=== PATIENT | male | born 1975 | race Caucasian/White ===

== ENCOUNTER 2017-12-26 16:53 | Emergency (ER) | payer MEDICAID, SELFPAY ==
[2017-12-26 16:54] VITALS: BP 134/89; PULSE 96; RESP 22; TEMP 36.8; O2SAT 95; BMI 55.6
--- NOTE | 2017-12-26 17:25 | CT_ITS ---
STUDY: CT CHEST WITH CONTRAST REASON FOR EXAM: Male, 42 years old. Trauma RADIATION DOSAGE (If Supplied By Facility): CTDIvol = ( 24.75 ) mGy, DLP = ( 2295.72 ) mGycm TECHNIQUE: Transaxial imaging was performed following intravenous administration of 100 ml of Isovue 300 contrast material. Multiplanar coronal and sagittal images were reformatted. Individualized dose optimization techniques were used for this CT. COMPARISON: October 20, 2016 chest x-ray FINDINGS: The lungs are normal. There is no demonstrated pleural abnormality. Normal heart and pericardium. Normal mediastinum. Normal hilar regions. Normal enhanced pulmonary arteries. Normal aorta arch and descending thoracic aorta. The contrast bolus is limited to evaluate for PE. There is a suggestion of old right mid anterior rib fracture. Image #64. Also image #85. There is degenerative change in the visualized thoracic spine with multilevel bridging osteophytes. There is moderate to severe splenic enlargement. There is fatty infiltration of the liver there is a small hiatal hernia. CT/Chest WITH Contrast IMPRESSION: No visualized acute intrathoracic injury. There may be old right anterior rib fractures. No evidence of focal infiltrate. Moderate to severe visualized splenomegaly Small hiatal hernia Hepatic steatosis. Please refer to dedicated separate dictation CT scan of the abdomen and pelvis performed today Electronically Signed: Zayda Vyas MD at 21:26 EST Tel , Service support ,
--- NOTE | 2017-12-26 17:25 | CT_ITS ---
STUDY: CT ABDOMEN AND PELVIS WITH CONTRAST REASON FOR EXAM: Male, 42 years old. Abdominal trauma RADIATION DOSAGE (If Supplied By Facility): CTDIvol = ( 24.75 ) mGy, DLP = ( 2295.72 ) mGycm TECHNIQUE: Transaxial images were obtained from the dome of the diaphragm to the symphysis pubis without oral contrast. 100 ml of Isovue 300 contrast was administered. Sagittal and coronal images were reconstructed. Individualized dose optimization techniques were used for this CT. COMPARISON: None. FINDINGS: The visualized lung bases are unremarkable. The visualized portions of the heart are within normal limits. Normal liver. Normal gallbladder and extrahepatic biliary system. Normal spleen. Normal pancreas. Normal bilateral adrenal glands. 3.7 cm ill-defined isodense right renal cortical mass. Left kidney normal. Normal visualized stomach. Normal small intestine. Normal colon. The appendix is visualized and appears normal. Normal abdominal aorta. Normal inferior vena cava. Normal retroperitoneum. Normal urinary bladder. Normal abdominal wall. Normal osseous structures. CT/Abdomen/Pelvis W IV Cont ONLY IMPRESSION: Right renal mass. Recommend prompt urologic consultation to exclude neoplasm. No acute traumatic sequelae. Electronically Signed: Ethan Jamil MD at 18:52 EST , Service support ,
--- NOTE | 2017-12-26 17:25 | CT_ITS ---
STUDY: CT BRAIN WITHOUT CONTRAST REASON FOR EXAM: Male, 42 years old. Head trauma RADIATION DOSAGE (If Supplied By Facility): CTDIvol = ( 44.99 ) mGy, DLP = ( 812.98 ) mGycm TECHNIQUE: Transaxial CT imaging of the brain was performed without administration of intravenous contrast material. Individualized dose optimization techniques were used for this CT. COMPARISON: None. FINDINGS: Normal soft tissue structures. Normal calvarium. Normal size ventricles and extra-axial spaces for the patient's age. Normal white matter tracts of the cerebral hemispheres. Normal basal ganglia and thalami. Normal brainstem. Normal cerebellum. There is no intracranial hemorrhage. There are no findings of an acute ischemic infarction. Air-fluid level left maxillary sinus. CT/Brain/Head without Contrast IMPRESSION: Left maxillary sinusitis. No acute intracranial disease. Electronically Signed: Ethan Jamil MD at 18:44 EST , Service support ,
--- NOTE | 2017-12-26 17:28 | ED.DCSUM_ITS ---
- ER Visit Summary Date of Service: 12/26/17 Chief Complaint: Fall History of Present Illness: The patient is a 42 M presenting after fall. Patient states he slipped on ice and fell. He believes he hit his head but did not lose consciousness. Complains of right lower chest and right upper abdominal pain. He has taken ibuprofen at home with no relief. He has been able to ambulate. Denies other complaints. Physical Examination: Vitals are stable. Patient is afebrile. Alert no acute distress. HEENT exam is unremarkable. Neck is supple. Lungs are clear and equal bilaterally. Right lower chest wall tenderness Heart is regular rate and rhythm. Abdomen is soft right upper quadrant tenderness. Extremities are unremarkable. Skin is warm and dry. No focal neurologic deficit. Remainder of exam is unremarkable. Emergency Department Course and Treatment: Patient is given morphine, Zofran IV with improvement. CT head shows no acute process. CT chest shows no acute process. CT abdomen shows no acute process, right renal mass. Recommend prompt urologic consultation to exclude neoplasm. Discussed with Dr Reilly who will see him for outpatient follow-up. Patient is advised importance of close follow-up. Advised return ED if worsening complaints. Disposition: Discharge home Impression: Chest wall contusion, status post mechanical fall, right renal mass This note was generated with Active[employer] dictation software. It may contain incorrect words, spelling, and punctuation that were not noted in review of the chart prior to signing ED Disposition - Plan for ED Patient: Chief Complaint: Chest Other Referrals: Jameson Sood MD [Primary Care Provider] -
[2017-12-26] MEDS: Ondansetron 4 MG/2 ML Vial IV (17:39)
--- NOTE | 2017-12-26 22:33 | NURSING ---
WAITING FOR THE DOCTOR TO CALL DR BURNS
--- NOTE | 2017-12-26 23:19 | ED.DEP ---
ED Disposition - Plan for ED Patient: Chief Complaint: Chest Other Instructions: ED Contusion Chest Wall Referrals: Jameson Sood MD [Primary Care Provider] - Jhonathan Reilly MD [STAFF PHYSICIAN] -
[2017-12-26 23:30] VITALS: BP 128/90; PULSE 93; RESP 20; O2SAT 97
== END 2017-12-26 23:31 | disposition home or self-care (01) ==
PROVIDERS: Emergency Provider Emergency Medicine; Family Provider Family Medicine; PCP Family Medicine
DX: S20.219A Contusion of unspecified front wall of thorax, initial encounter (principal); W00.0XXA Fall on same level due to ice and snow, initial encounter; Y93.9 Activity, unspecified; Y92.89 Other specified places as the place of occurrence of the external cause; Y99.9 Unspecified external cause status; N28.89 Other specified disorders of kidney and ureter
CPT/HCPCS: 70450; 71260; 74177; 99283; J7050; Q9967; A4216; J2405

== ENCOUNTER 2018-02-08 16:47 | Emergency (ER) | payer MEDICAID, SELFPAY ==
[2018-02-08 16:48] VITALS: BP 146/68; PULSE 101; RESP 24; TEMP 36.6; O2SAT 97; BMI 60.0
--- NOTE | 2018-02-08 17:20 | ED.DCSUM_ITS ---
- ER Visit Summary Date of Service: 02/08/18 Chief Complaint: Back pain History of Present Illness: The patient is a 42 M who presents secondary to left -sided back pain. Patient states just prior to arrival he was helping a family member move a dresser. The family member on the other end dropped the dresser and the patient's back was jerked in a twisting motion. He had instant pain to the left lumbar region. He has pain radiating to the proximal thigh only. No problems with bowel or bladder control. He did take ibuprofen prior to arrival. Physical Examination: Vital signs are unremarkable. Patient sitting on the side of the bed. He appears uncomfortable but no acute distress. Heart is regular rate and rhythm. Lung sounds are clear. Abdomen is soft, obese, nontender. Back examination reveals no midline thoracic or lumbar tenderness. He has significant tenderness in the lower thoracic and upper lumbar paraspinals on the left. No tenderness noted to the right-sided paraspinals. No skin changes are noted. Neuro exam reveals normal strength and sensation in the lower extremities. He has strong distal pulses. Test Results: [] Emergency Department Course and Treatment: I did do an oars report. Patient has not had any prescriptions in the last year. He is given [place] and Flexeril here and be given prescriptions for the same. Treatment Plan: [] Disposition: Discharge Impression: Lumbar paraspinal strain This note was generated with [employer] dictation software. It may contain incorrect words, spelling, and punctuation that were not noted in review of the chart prior to signing ED Disposition - Plan for ED Patient: Chief Complaint: Back Referrals: Jameson Sood MD [Primary Care Provider] -
--- NOTE | 2018-02-08 17:22 | DCINST.ED_ITS ---
ED Disposition - Plan for ED Patient: Disposition: Home or Assisted Living Chief Complaint: Back Instructions: ED Sprain Strain Lumbar Prescriptions: Hydrocodone Bitart/Apap 5-325 [[place] 5/325] 1 - 2 tablet PO Q6H PRN PRN 3 Days # 12 tablet PRN Reason: Pain Cyclobenzaprine [Flexeril] 10 mg PO TID PRN #20 tab PRN Reason: Muscle Spasm Referrals: Jameson Sood MD [Primary Care Provider] - 1 Week if not improving
[2018-02-08] MEDS: HYDROcodone Bitartrate/Apap 5/325 Tablet PO (17:25)
== END 2018-02-08 17:34 | disposition home or self-care (01) ==
PROVIDERS: Emergency Provider Emergency Medicine; Family Provider Family Medicine; PCP Family Medicine
DX: S39.012A Strain of muscle, fascia and tendon of lower back, initial encounter (principal); X50.1XXA Overexertion from prolonged static or awkward postures, initial encounter; Y93.E6 Activity, residential relocation; Y92.9 Unspecified place or not applicable; Y99.9 Unspecified external cause status; E66.9 Obesity, unspecified; Z85.528 Personal history of other malignant neoplasm of kidney
CPT/HCPCS: 99283

== ENCOUNTER 2018-03-15 22:14 | Emergency (ER) | payer MEDICAID, SELFPAY ==
[2018-03-15 22:15] VITALS: BP 165/96; PULSE 89; RESP 15; TEMP 36.9; BMI 55.7
--- NOTE | 2018-03-15 23:18 | ED.VISSUMM ---
- ER Visit Summary Date of Service: 03/15/18 Chief Complaint: I think my incision is infected History of Present Illness: The patient is a 42 M is post partial nephrectomy on the right done at [facility] approximately 1 week ago secondary to a renal tumor. Patient states been doing well. Whenever changing the bandage today they noticed redness to his abdominal wall and some cloudy discharge from his right lower laparoscopic incision. He denies any fever. States is feeling well otherwise. Physical Examination: Vital signs are stable and afebrile. He does not look septic toxic. He is in no distress. HEENT exam unremarkable. Neck nontender no lymphadenopathy. Lungs clear to auscultation bilaterally. Heart regular rhythm no murmur. Abdomen has multiple well-healing surgical incisions. The right lower 1 does have redness around it. Currently there is no discharge. This does appear to be abdominal wall cellulitis. It is warm to touch. Below that is a prior drainage site that is open. There are no peritoneal signs. He is moving his extremities. Neurologically is awake and alert. Test Results: None Emergency Department Course and Treatment: Patient will be started on Keflex 500 mg 4 times daily for 10 days. He will be given a home pack and [place] for pain. He is going to call his [facility] investigation officer tomorrow for repeat evaluation. He does not have a scheduled appointment for at least another week and I told him he needs to get in before that. Treatment Plan: Keflex 500 4 times daily. Disposition: discharge Impression: Abdominal wall surgical site infection with cellulitis Status post partial nephrectomy This note was generated with E[employer]as dictation software. It may contain incorrect words, spelling, and punctuation that were not noted in review of the chart prior to signing ED Disposition - Plan for ED Patient: Chief Complaint: Wound Check Referrals: Jameson Sood MD [Primary Care Provider] -
--- NOTE | 2018-03-15 23:22 | ED.DCSUM_ITS ---
- ER Visit Summary Date of Service: 03/15/18 Chief Complaint: I think my incision is infected History of Present Illness: The patient is a 42 M is post partial nephrectomy on the right done at [facility] approximately 1 week ago secondary to a renal tumor. Patient states been doing well. Whenever changing the bandage today they noticed redness to his abdominal wall and some cloudy discharge from his right lower laparoscopic incision. He denies any fever. States is feeling well otherwise. Physical Examination: Vital signs are stable and afebrile. He does not look septic toxic. He is in no distress. HEENT exam unremarkable. Neck nontender no lymphadenopathy. Lungs clear to auscultation bilaterally. Heart regular rhythm no murmur. Abdomen has multiple well-healing surgical incisions. The right lower 1 does have redness around it. Currently there is no discharge. This does appear to be abdominal wall cellulitis. It is warm to touch. Below that is a prior drainage site that is open. There are no peritoneal signs. He is moving his extremities. Neurologically is awake and alert. Test Results: None Emergency Department Course and Treatment: Patient will be started on Keflex 500 mg 4 times daily for 10 days. He will be given a home pack and [place] for pain. He is going to call his [facility] pharmacist tomorrow for repeat evaluation. He does not have a scheduled appointment for at least another week and I told him he needs to get in before that. Treatment Plan: Keflex 500 4 times daily. Disposition: discharge Impression: Abdominal wall surgical site infection with cellulitis Status post partial nephrectomy This note was generated with [employer]ion[employer] dictation software. It may contain incorrect words, spelling, and punctuation that were not noted in review of the chart prior to signing ED Disposition - Plan for ED Patient: Chief Complaint: Wound Check Referrals: Jameson Sood MD [Primary Care Provider] -
--- NOTE | 2018-03-15 23:22 | ED.DEP ---
ED Disposition - Plan for ED Patient: Disposition: Home or Assisted Living Chief Complaint: Wound Check Instructions: ED Wound Infec After Surgery Prescriptions: Cephalexin [Keflex] 500 mg PO Q6 #40 cap Additional Instructions: Call your kidney surgeon on Friday. You need to get in to see him in the next several days. He need to reevaluate the surgical wound. Next Keflex 1 pill 4 times a day for the infection. Return if feeling worse or develop a fever.
[2018-03-15] MEDS: Cephalexin 250 MG Capsule 500 MG PO (23:23)
[2018-03-15] MEDS: HYDROcodone Bitartrate/Apap 5/325 Tablet PO (23:23)
[2018-03-15 23:25] VITALS: BP 151/83; PULSE 80; RESP 18; O2SAT 95
== END 2018-03-15 23:30 | disposition home or self-care (01) ==
PROVIDERS: Emergency Provider Emergency Medicine; Family Provider Family Medicine; PCP Family Medicine
DX: L03.311 Cellulitis of abdominal wall (principal); Z90.5 Acquired absence of kidney; R19.7 Diarrhea, unspecified
CPT/HCPCS: 99282

== ENCOUNTER 2018-04-02 10:02 | Emergency (ER) | payer MEDICAID, SELFPAY ==
[2018-04-02 10:03] VITALS: BP 154/108; PULSE 70; RESP 16; TEMP 36.7; O2SAT 95; BMI 59.8
--- NOTE | 2018-04-02 10:20 | CT_ITS ---
STUDY: CT ABDOMEN AND PELVIS WITHOUT CONTRAST REASON FOR EXAM: Male, 42 years old. Recent right partial nephrectomy. Right flank pain. History of renal carcinoma. RADIATION DOSAGE (If Supplied By Facility): CTDIvol = ( 17.58 ) mGy, DLP = ( 2640.44 ) mGycm TECHNIQUE: Transaxial images were obtained from the dome of the diaphragm to the symphysis pubis without oral contrast, and without intravenous contrast. Sagittal and coronal images were reconstructed. Individualized dose optimization techniques were used for this CT. COMPARISON: Comparison is made with prior study dated December 26, 2017. FINDINGS: The visualized lung bases are unremarkable. The visualized portions of the heart are within normal limits. Normal liver. Normal gallbladder and extrahepatic biliary system. Normal spleen. Normal pancreas. Normal bilateral adrenal glands. The patient is status post partial right nephrectomy with resection of the 3.7 cm inhomogeneous mass arising from the lateral aspect of the right kidney. Postsurgical changes are seen with increased linear markings. There is no evidence of a fluid collection or perinephric hematoma. Normal left kidney. Normal visualized stomach. Normal small intestine. Normal colon. The appendix is visualized and appears normal. Normal abdominal aorta. Normal inferior vena cava. Normal retroperitoneum. Normal urinary bladder. There is evidence of a focal herniation in the right lateral abdominal wall with fat. There is evidence of a 9.4 cm x 4.8 cm soft tissue density overlying the right mid abdomen laterally. This most likely represents postoperative or seroma. Normal osseous structures. CT/Abdomen/Pelvis without Cont IMPRESSION: Status post partial right nephrectomy with resultant postoperative changes. Findings suggestive of a postoperative seroma in the subcutaneous tissues in the right mid lateral anterior abdomen just lateral to a focal hernia containing fat. The neck of the hernia measures 2.5 cm. Electronically Signed: Chencho Templeton MD at 11:16 EDT Tel [phone], Service support ,
[2018-04-02] MEDS: oxyCODONE 5 MG Tablet 10 MG PO (10:26)
--- NOTE | 2018-04-02 11:53 | ED.DCSUM_ITS ---
- ER Visit Summary Date of Service: 04/02/18 Chief Complaint: Abdominal pain History of Present Illness: The patient is a [address] Sood. He had a partial right nephrectomy for renal cell cancer March 09 at [facility]. He reports he has had pain on that side of his abdomen since that time. The pain worsened 3 days ago. Is a sharp pain that is 10 out of 10 severity. Is worsened by laying down. He is not taking anything for this. He was seen in the emergency department March 15 and placed on Keflex. He had his dominguez removed [address] Vivar and was continued on the Keflex which she finished 3 days ago. Patient is concerned because he can feel a lump under the middle incision. He denies any constitutional symptoms. No fever, chills, nausea, or vomiting. Physical Examination: Vitals: Stable. Afebrile. General: Well-nourished and well-developed. Head: Normocephalic atraumatic. Neck: Supple, no lymphadenopathy. No JVD. Nontender. Cardiovascular: Regular rate and rhythm. No murmurs. Respiratory: No respiratory distress. Clear to auscultation bilaterally. Abdominal: Soft, mild tenderness to palpation approximately 2 cm indurated area over the middle incision on the right no erythema or fluctuance, nondistended, normal bowel sounds. No guarding, rebound, or peritoneal signs. Incisions are clean dry and intact. There is no surrounding erythema. Back: Nontender. Extremities: Nontender, no edema. Skin: Normal color, no rash. Neurologic: Alert and oriented ?3. Cranial nerves II through XII are intact. Normal strength and sensation. Psych: Normal affect. Test Results: CT flank shows Clinical Impression(s) from Imaging Studies IMPRESSION: Status post partial right nephrectomy with resultant postoperative changes. Findings suggestive of a postoperative seroma in the subcutaneous tissues in the right mid lateral anterior abdomen just lateral to a focal hernia containing fat. The neck of the hernia measures 2.5 cm. Emergency Department Course and Treatment: An [facility] report was obtained which shows he has had 3 prescriptions for opiates in the past year. He is treated with a dose of oxycodone here. Treatment Plan: Clinically this seroma is not infected. There is no erythema, warmth, or fluctuance. I discussed the patient and the hernia that he has and the seroma. He has an appointment to follow-up with his surgeon in 5 days. I do not think that putting him on antibiotics at this point is indicated. He will be discharged with prescription for 12 Percocet. Return to the emergency department for any worsening symptoms. Disposition: To home in improved and stable condition. Impression: 1. 24 days status post partial right nephrectomy. 2. Postoperative seroma. This note was generated with aDeal[employer] dictation software. It may contain incorrect words, spelling, and punctuation that were not noted in review of the chart prior to signing ED Disposition - Plan for ED Patient: Chief Complaint: Wound Check Instructions: ED Post Op Pain Prescriptions: Oxycodone HCl/Acetaminophen [Percocet 5/325] 1 tablet PO Q6H PRN PRN 3 Days #12 tablet PRN Reason: Pain Additional Instructions: Follow-up with your surgeon as previously scheduled.
== END 2018-04-02 11:58 | disposition home or self-care (01) ==
PROVIDERS: Emergency Provider Emergency Medicine; Family Provider Family Medicine; PCP Family Medicine
DX: N99.842 Postprocedural seroma of a genitourinary system organ or structure following a genitourinary system procedure (principal); Z90.5 Acquired absence of kidney; Z85.528 Personal history of other malignant neoplasm of kidney
CPT/HCPCS: 74176; 99283

== ENCOUNTER → 2018-04-20 17:28 | Emergency (ER) | payer MEDICAID, SELFPAY ==
--- NOTE | 2018-04-20 17:28 | DT_ITS ---
This patient was seen during an EMR downtime April 20, 2018 - April 27, 2018. This patient may have a combination of paper and electronic documentation or all paper documentation. All documentation is viewable within the e-chart portion of [employer] for each patient visit.
== END | disposition left against medical advice (07) ==
LOC: ED 04-22 13:43
PROVIDERS: Emergency Provider Emergency Medicine; Family Provider Family Medicine; PCP Family Medicine
DX: Z53.21 Procedure and treatment not carried out due to patient leaving prior to being seen by health care provider (principal)

== ENCOUNTER 2018-04-30 17:15 | Emergency (ER) | payer MEDICAID, SELFPAY ==
[2018-04-30 17:16] VITALS: BP 133/91; PULSE 79; RESP 17; TEMP 36.7; O2SAT 96; BMI 58.3
--- NOTE | 2018-04-30 17:39 | ED.VISSUMM ---
- ER Visit Summary Date of Service: 04/30/18 Chief Complaint: Acute on chronic right lateral abdominal pain History of Present Illness: The patient is a 42 M is post right nephrectomy secondary to renal CA. Patient's had pain since March 09 after he had nephrectomy. A recently diagnosed him with a seroma and also lateral abdominal wall hernia. He followed up with his primary care physician Dr. Sood who placed him on Percocet for pain. He is also seeing Dr. Rocha general surgeon. Patient states that there determining the next step. He presents today complaining of the same continued pain. He denies fever or vomiting. States she has had normal bowel movements and normal urination. The pain is not change this is been constant. Physical Examination: Well-appearing middle-age male. Morbidly obese. Vital signs are stable afebrile. H EENT exam unremarkable. Lungs clear to auscultation bilaterally. Heart regular rate and rhythm no murmur. Abdomen is morbidly obese but soft. Normal bowel sounds no peritoneal signs. He has a right lateral abdominal wall tenderness there are multiple well-healed laparoscopic incisions there. This is where the previously diagnosed hernia and seroma were. There is no incarcerated or strangulated hernia at this time. He has normal bowel sounds his abdomen is soft. He is moving all 4 extremities. Neurologically is awake and alert. Test Results: I reviewed the patient's last ER visit and the CAT scan results. This today. I do not feel he needs any further imaging. Her lab work. Emergency Department Course and Treatment: He will be given 2 [place] here. A prescription for Percocet for pain 14 no refill and any further pain meds need to be obtained through his primary care physician or his surgeon. Treatment Plan: Discharged to follow-up with Dr. Johann Rocha. Disposition: Discharged Impression: Acute on chronic abdominal wall pain secondary to a seroma and right lateral abdominal wall hernia status post nephrectomy This note was generated with [employer] dictation software. It may contain incorrect words, spelling, and punctuation that were not noted in review of the chart prior to signing ED Disposition - Plan for ED Patient: Chief Complaint: Abd Pain Referrals: Jameson Sood MD [Primary Care Provider] -
--- NOTE | 2018-04-30 17:42 | ED.DCSUM_ITS ---
- ER Visit Summary Date of Service: 04/30/18 Chief Complaint: Acute on chronic right lateral abdominal pain History of Present Illness: The patient is a 42 M is post right nephrectomy secondary to renal CA. Patient's had pain since March 09 after he had nephrectomy. A recently diagnosed him with a seroma and also lateral abdominal wall hernia. He followed up with his primary care physician Dr. Sood who placed him on Percocet for pain. He is also seeing Dr. Rocha general surgeon. Patient states that there determining the next step. He presents today complaining of the same continued pain. He denies fever or vomiting. States she has had normal bowel movements and normal urination. The pain is not change this is been constant. Physical Examination: Well-appearing middle-age male. Morbidly obese. Vital signs are stable afebrile. H EENT exam unremarkable. Lungs clear to auscultation bilaterally. Heart regular rate and rhythm no murmur. Abdomen is morbidly obese but soft. Normal bowel sounds no peritoneal signs. He has a right lateral abdominal wall tenderness there are multiple well-healed laparoscopic incisions there. This is where the previously diagnosed hernia and seroma were. There is no incarcerated or strangulated hernia at this time. He has normal bowel sounds his abdomen is soft. He is moving all 4 extremities. Neurologically is awake and alert. Test Results: I reviewed the patient's last ER visit and the CAT scan results. This today. I do not feel he needs any further imaging. Her lab work. Emergency Department Course and Treatment: He will be given 2 [place] here. A prescription for Percocet for pain 14 no refill and any further pain meds need to be obtained through his primary care physician or his surgeon. Treatment Plan: Discharged to follow-up with Dr. Johann Rocha. Disposition: Discharged Impression: Acute on chronic abdominal wall pain secondary to a seroma and right lateral abdominal wall hernia status post nephrectomy This note was generated with [employer] dictation software. It may contain incorrect words, spelling, and punctuation that were not noted in review of the chart prior to signing ED Disposition - Plan for ED Patient: Chief Complaint: Abd Pain Referrals: Jameson Sood MD [Primary Care Provider] -
--- NOTE | 2018-04-30 17:42 | ED.DEP ---
ED Disposition - Plan for ED Patient: Disposition: Home or Assisted Living Chief Complaint: Abd Pain Prescriptions: Oxycodone HCl/Acetaminophen [Percocet 10-325 mg Tablet] 1 tab PO Q6H PRN PRN #14 tab PRN Reason: Pain Referrals: Jhon Rocha MD [STAFF PHYSICIAN] - As soon as possible Additional Instructions: Call follow-up with Dr. Rocha. Any further pain medications must be obtained using your general surgeon or your primary care physician.
--- NOTE | 2018-04-30 17:45 | DCINST.ED_ITS ---
ED Disposition - Plan for ED Patient: Disposition: Home or Assisted Living Chief Complaint: Abd Pain Prescriptions: Oxycodone HCl/Acetaminophen [Percocet 10-325 mg Tablet] 1 tab PO Q6H PRN PRN # 14 tab PRN Reason: Pain Referrals: Jhon Rocha MD [STAFF PHYSICIAN] - As soon as possible Additional Instructions: Call follow-up with Dr. Rocha. Any further pain medications must be obtained using your general surgeon or your primary care physician.
[2018-04-30] MEDS: HYDROcodone Bitartrate/Apap 5/325 Tablet PO (17:47)
[2018-04-30 17:53] VITALS: RESP 18
--- NOTE | 2018-04-30 17:54 | ED.RN ---
REVIEWED D/C INSTRUCTIONS, FOLLOW UP CARE, PRESCRIPTION, AND S/S THAT WOULD WARRANT A RETURN TO THE ED WITH PT. PT VERBALIZED AN UNDERSTANDING AND DENIES FURTHER QUESTIONS FOR THIS RN. PT SKIN P/W/D, RESP EVEN AND UNLABORED, PT A&O X 3, NO DISTRESS NOTED. PT AMBULATED OUT OF ED, GAIT STEADY.
== END 2018-04-30 17:55 | disposition home or self-care (01) ==
PROVIDERS: Emergency Provider Emergency Medicine; Family Provider Family Medicine; PCP Family Medicine
DX: K43.2 Incisional hernia without obstruction or gangrene (principal); L76.34 Postprocedural seroma of skin and subcutaneous tissue following other procedure; Y83.8 Other surgical procedures as the cause of abnormal reaction of the patient, or of later complication, without mention of misadventure at the time of the procedure; E66.01 Morbid (severe) obesity due to excess calories; Z90.5 Acquired absence of kidney; Z85.528 Personal history of other malignant neoplasm of kidney
CPT/HCPCS: 99283

== ENCOUNTER 2018-05-06 19:46 | Emergency (ER) | payer MEDICAID, SELFPAY ==
[2018-05-06 19:46] VITALS: BP 158/106; PULSE 85; RESP 18; TEMP 36.5; O2SAT 97; BMI 59.4
[2018-05-06 20:49] VITALS: BP 145/98; PULSE 71; RESP 14; O2SAT 98
[2018-05-06 21:18] LABS: Bacteria 0 SEEN /hpf (None Seen); Mucous, Urine 0 SEEN /hpf (<or=2+); Red Blood Cells-Urine 0 SEEN /hpf (0-5); White Blood Cells 0 SEEN /hpf (0-5)
[2018-05-06 21:20] LABS: Color, Urine Yellow (Yellow); Glucose, Dipstick Normal (Normal); Ketone-Dipstick Negative (Negative); Leukocyte Esterase-Dipstick Negative /ul (Negative); Nitrite-Dipstick Negative (Negative); Occult Blood-Urine Negative /ul (Negative); Protein-Dipstick Negative (Negative); Urine Bilirubin Dipstick Negative (Negative); Urine Clarity Sl. Cloudy (Clear); Urine Urobilinogen Normal (Normal)
[2018-05-06 21:27] LABS: Squamous Epithelial Cells - UA 0-5 SEEN /hpf (0-5)
[2018-05-06] MEDS: HYDROcodone Bitartrate/Apap 5/325 Tablet PO (21:27)
--- NOTE | 2018-05-06 21:47 | ED.VISSUMM ---
- ER Visit Summary Date of Service: 05/06/18 Chief Complaint: Right-sided abdominal pain History of Present Illness: The patient is a 42 M history of chronic right upper quadrant ventral hernia to having a partial nephrectomy March 09. Patient states he had pain since that time. He has been seen ER multiple times. He is also followed up with his primary care physician Dr. Sood and also Dr. Rocha at the [facility]. Patient states today is helping someone move furniture and he had more pain in his hernia site. He denies any vomiting. He has had normal bowel movements. He also states he believes he may have had blood in his urine recently. Denies any fever. Denies any recent abdominal trauma. Physical Examination: Well-appearing middle-age male. Vital signs are stable afebrile. He does not look septic or toxic. He is in no acute distress. HEENT exam unremarkable. Neck nontender no lymphadenopathy. Lungs clear to auscultation bilaterally. Heart regular rhythm no murmur. Abdomen is morbidly obese. He has well-healed laparoscopic incisional scars in the right upper quadrant. He does have a right-sided ventral hernia which easily reduces. There is no signs of strangulated or incarcerated hernia. There is no signs of bowel obstruction. The right upper quadrant is only mildly tender. He is moving all 4 extremities. Neurologically is awake and alert. Test Results: Analysis was normal. No signs of blood or infection Emergency Department Course and Treatment: Patient was given 2 [place] here for pain. On repeat exam at 2150 is doing well and is comfortable being discharged home. He needs no further workup at this time in the clinic or deciding how to handle this hernia. Treatment Plan: Discharge and follow-up with the [facility]. Disposition: Discharge Impression: Acute on chronic abdominal pain secondary to a abdominal wall hernia s/p post right partial nephrectomy This note was generated with [employer] dictation software. It may contain incorrect words, spelling, and punctuation that were not noted in review of the chart prior to signing ED Disposition - Plan for ED Patient: Chief Complaint: Abd Pain Referrals: Jameson Sood MD [Primary Care Provider] -
--- NOTE | 2018-05-06 21:52 | ED.DCSUM_ITS ---
- ER Visit Summary Date of Service: 05/06/18 Chief Complaint: Right-sided abdominal pain History of Present Illness: The patient is a 42 M history of chronic right upper quadrant ventral hernia to having a partial nephrectomy March 09. Patient states he had pain since that time. He has been seen ER multiple times. He is also followed up with his primary care physician Dr. Sood and also Dr. Rocha at the [facility]. Patient states today is helping someone move furniture and he had more pain in his hernia site. He denies any vomiting. He has had normal bowel movements. He also states he believes he may have had blood in his urine recently. Denies any fever. Denies any recent abdominal trauma. Physical Examination: Well-appearing middle-age male. Vital signs are stable afebrile. He does not look septic or toxic. He is in no acute distress. HEENT exam unremarkable. Neck nontender no lymphadenopathy. Lungs clear to auscultation bilaterally. Heart regular rhythm no murmur. Abdomen is morbidly obese. He has well-healed laparoscopic incisional scars in the right upper quadrant. He does have a right-sided ventral hernia which easily reduces. There is no signs of strangulated or incarcerated hernia. There is no signs of bowel obstruction. The right upper quadrant is only mildly tender. He is moving all 4 extremities. Neurologically is awake and alert. Test Results: Analysis was normal. No signs of blood or infection Emergency Department Course and Treatment: Patient was given 2 [place] here for pain. On repeat exam at 2150 is doing well and is comfortable being discharged home. He needs no further workup at this time in the clinic or deciding how to handle this hernia. Treatment Plan: Discharge and follow-up with the [facility]. Disposition: Discharge Impression: Acute on chronic abdominal pain secondary to a abdominal wall hernia s/p post right partial nephrectomy This note was generated with [employer] dictation software. It may contain incorrect words, spelling, and punctuation that were not noted in review of the chart prior to signing ED Disposition - Plan for ED Patient: Chief Complaint: Abd Pain Referrals: Jameson Sood MD [Primary Care Provider] -
--- NOTE | 2018-05-06 21:52 | ED.DEP ---
ED Disposition - Plan for ED Patient: Disposition: Home or Assisted Living Chief Complaint: Abd Pain Referrals: Jameson Sood MD [Primary Care Provider] - As soon as possible Additional Instructions: Tylenol and Motrin for abdominal wall pain. Call and follow-up with both Dr. Sood and Dr. Rocha for a long-term plan.
== END 2018-05-06 21:56 | disposition home or self-care (01) ==
PROVIDERS: Emergency Provider Emergency Medicine; Family Provider Family Medicine; PCP Family Medicine
DX: G89.29 Other chronic pain (principal); R10.9 Unspecified abdominal pain; K43.9 Ventral hernia without obstruction or gangrene; Z90.5 Acquired absence of kidney; Z85.53 Personal history of malignant neoplasm of renal pelvis
CPT/HCPCS: 81001; 99283

== ENCOUNTER 2018-05-10 13:02 | Emergency (ER) | payer MEDICAID, SELFPAY ==
[2018-05-10 13:03] VITALS: BP 153/107; PULSE 75; RESP 17; TEMP 37.2; O2SAT 96; BMI 59.1
--- NOTE | 2018-05-10 13:16 | RAD_ITS ---
STUDY: X-RAY - LUMBAR SPINE REASON FOR EXAM: Male, 42 years old. Status post fall TECHNIQUE: 3 view(s) of the lumbar spine were obtained. COMPARISON: None FINDINGS: Normal lumbar lordosis. There is no substantial scoliosis. There is a normal alignment of the vertebrae. There is mild multilevel spondylosis. There is minimal disc space narrowing at L4-L5. The soft tissue structures are unremarkable. RAD/Lumbar Spine 2 or 3 Views IMPRESSION: Degenerative change. No evidence of acute loss of height or alignment. Electronically Signed: Zayda Vyas MD at 14:03 EDT Tel , Service support ,
--- NOTE | 2018-05-10 13:17 | RAD_ITS ---
STUDY: X-RAY - THORACIC SPINE REASON FOR EXAM: Male, 42 years old. Status post TECHNIQUE: Were view(s) of the thoracic spine were obtained. COMPARISON: None. FINDINGS: Normal kyphosis of the thoracic spine. There is no substantial scoliosis. There is multilevel endplate spondylosis of the thoracic vertebrae. There is multilevel disc space narrowing of the thoracic spine. The soft tissue structures are unremarkable. RAD/Thoracic Spine 2 Views IMPRESSION: Degenerative change. No visualized evidence of an acute fracture. Electronically Signed: Zayda Vyas MD at 14:16 EDT Tel , Service support ,
--- NOTE | 2018-05-10 13:18 | ED.VISSUMM ---
- ER Visit Summary Date of Service: 05/10/18 Chief Complaint: [] Back pain after falling downstairs History of Present Illness: The patient is a 42 M [] and groceries inadvertently fell down some stairs injuring his back he complains of pain from the mid T level to the upper lumbar level. He was able to get up was brought to the hospital for evaluation he has no numbness 6 paresthesias pain in his back he does have a history of having a partial kidney resection due to kidney cancer he is not specific about that history but his basic health has been very good until the fall which occurred because he stumbled he has not been ill in any way no abdominal pain head pain neck pain or any other complaints of any kind Physical Examination: [] He is complaining of pain to that level the back as above his vital signs are within normal range he is a very large gentleman his head is not tender nor is the neck the lungs are clear but distant the heart tones are distant the abdomen is very obese but soft and nontender he has some no discomfort to the C-spine he has some very mild pain to the mid thoracic to the lumbar level he is able to stand and walk he has normal strength his lower extremities no paresthesias his upper extremities unremarkable his chest and abdomen the rest of his body showed no areas of trauma or complaints of trauma Test Results: [] Emergency Department Course and Treatment: [] Mso4 and Zofran x-rays She has been medicated he is feeling better he is walking around the emergency department, his x-rays T-spine lumbar spine are unremarkable of explained the concept of occult injury to him he will follow-up with his doctors he has a history of partial nephrectomy so he will be given instructions to use Tylenol and if that is ineffective he will be given for [place] tablets to use as rescue medicine Treatment Plan: [] Disposition: [] Home stable Impression: [] Fall with back pain This note was generated with [employer] dictation software. It may contain incorrect words, spelling, and punctuation that were not noted in review of the chart prior to signing ED Disposition - Plan for ED Patient: Chief Complaint: Back Referrals: Jameson Sood MD [Primary Care Provider] -
[2018-05-10] MEDS: morphine 8 MG/ML Syringe SC (13:50)
[2018-05-10] MEDS: Ondansetron ODT 4 MG Tablet 8 MG PO (13:50)
--- NOTE | 2018-05-10 15:02 | DCINST.ED_ITS ---
ED Disposition - Plan for ED Patient: Chief Complaint: Back Instructions: ED Contusion Back Prescriptions: Hydrocodone Bitart/Apap 5-325 [[place] 5MG-325MG] 1 tab PO Q4H PRN PRN 2 Days #7 tab PRN Reason: Pain Referrals: Jameson Sood MD [Primary Care Provider] -
[2018-05-10 15:04] VITALS: PULSE 72; RESP 18
== END 2018-05-10 15:04 | disposition home or self-care (01) ==
PROVIDERS: Emergency Provider Emergency Medicine; Family Provider Family Medicine; PCP Family Medicine
DX: M54.6 Pain in thoracic spine (principal); M54.5 Low back pain; Z85.528 Personal history of other malignant neoplasm of kidney; Z79.899 Other long term (current) drug therapy; W10.9XXA Fall (on) (from) unspecified stairs and steps, initial encounter; Y93.01 Activity, walking, marching and hiking; Y92.89 Other specified places as the place of occurrence of the external cause; Y99.8 Other external cause status
CPT/HCPCS: 72070; 72100; 96372; 99284

== ENCOUNTER 2018-05-20 18:45 | Emergency (ER) | payer MEDICAID, SELFPAY ==
[2018-05-20 18:45] VITALS: BP 156/73; PULSE 81; RESP 16; TEMP 36.6; O2SAT 99; BMI 54.4
--- NOTE | 2018-05-20 19:00 | CT_ITS ---
STUDY: CT ABDOMEN AND PELVIS WITH CONTRAST REASON FOR EXAM: Male, 42 years old. Right sided abdominal pain, partial right nephrectomy 02/2018 d/t cancer, ? Incisional hernia. Additional scans thru abdomen after moving patient to visualize right side better. RADIATION DOSAGE (If Supplied By Facility): CTDIvol = ( 35.31 ) mGy, DLP = ( 3624.39 ) mGycm TECHNIQUE: Transaxial images were obtained from the dome of the diaphragm to the symphysis pubis without oral contrast. 100mL ml of Isovue 300 contrast was administered. Sagittal and coronal images were reconstructed. Individualized dose optimization techniques were used for this CT. COMPARISON: [address] abdomen and pelvis FINDINGS: The visualized lung bases are unremarkable. The visualized portions of the heart are within normal limits. Normal liver. Normal gallbladder and extrahepatic biliary system. Normal spleen. Normal pancreas. Normal bilateral adrenal glands. Postsurgical changes of the right kidney consistent with partial nephrectomy which in comparison to 02 Apr 2018 demonstrates stable appearance of likely postoperative perinephric stranding and postsurgical cortical irregularity. Normal left kidney. Excretory views of bilateral kidneys demonstrates normal filling of the bilateral renal pelvis with contrast and proximal ureters with no evidence of hydronephrosis or delayed excretion. Normal visualized stomach. Normal small intestine. Normal colon. There is non-visualization of the appendix. Normal abdominal aorta. Normal inferior vena cava. Normal retroperitoneum. Bladder is largely contracted. Normal visualized prostate gland. Previously seen right lower quadrant subcutaneous likely postoperative seroma reduced in size and nearly completely resolved as seen on series 2 image 90 with likely postoperative subcutaneous stranding remaining. There is a small anterior right abdominal hernia at this level with defect measuring 2.5 cm. Normal osseous structures. CT/Abdomen/Pelvis WITH Contrast IMPRESSION: 1. Stable right renal postoperative partial nephrectomy changes and likely postoperative perinephric stranding. No large fluid collection or abnormal excretion on excretory views. Otherwise no evidence of acute intra-abdominal process. 2. Decreased size/near resolution of the subcutaneous seroma within the right quadrant with adjacent 2.5 cm fat-containing abdominal hernia. Electronically Signed: Alverto Valerio DO at 21:35 EDT , Service support ,
--- NOTE | 2018-05-20 19:06 | ED.DCSUM_ITS ---
- ER Visit Summary Date of Service: 05/20/18 Chief Complaint: Abdominal pain History of Present Illness: The patient is a 42 M 2 day history worsening right side incision no abdominal pain. Status post partial nephrectomy March 09 at [facility]. He states it was cancerous. He is having pain up to a month ago. Pain resolved. Symptoms return 2 days ago. He states he was moving furniture 4 days ago for his dad. There is no injuries. No nausea or vomiting. Normal bowel movements, last time was yesterday. States on follow -up he has been told it could be a hernia in the region. States pain is 9 out of 10. Worse when he moves. Denies fevers. Denies urinary symptoms. Physical Examination: General: Alert and oriented ?3, no acute distress HEENT: Normocephalic, atraumatic. Moist mucosa membranes Neck: supple, nontender. Cardiovascular: Regular rate and rhythm, no murmurs Respiratory: Normal breath sounds, symmetric, no distress Abdomen: Soft, 3 healed incisions right upper quadrant, tender in the lower incision region. There is no bulging palpated. No surrounding erythema or induration. Extremities: Nontender, no edema, pulses intact ?4 Neuro: no focal neurological deficits. Test Results: WBC 9. Hemoglobin 14. Creatinine 0.92. Lipase 82. Liver enzymes normal. CT abdomen pelvis 2.5 cm fat-containing hernia noted. Stable postop changes. Emergency Department Course and Treatment: Patient pain along the incisional site right lower quadrant. Normal bowel movements. Treated with morphine in the ED. Labs are stable. CT confirms a fat-containing hernia in the region of patient's pain. Reevaluation symptoms were improved. Discuss lifting restrictions. He is sent home with a disc. Short prescription for pain control. He will follow-up with his surgeon at [facility] for reevaluation as an outpatient. All questions were answered. Treatment Plan: [] Disposition: Discharge Impression: Right abdominal fat hernia This note was generated with [employer] dictation software. It may contain incorrect words, spelling, and punctuation that were not noted in review of the chart prior to signing ED Disposition - Plan for ED Patient: Disposition: Home or Assisted Living Chief Complaint: Abd Pain Diagnosis: Abdominal hernia Instructions: What Is a Hernia? Prescriptions: Oxycodone HCl/Acetaminophen [Percocet 5/325] 1 tablet PO Q6H PRN PRN 3 Days #12 tablet PRN Reason: Pain Referrals: Jameson Sood MD [Primary Care Provider] - Additional Instructions: Fat-containing right abdominal hernia. No lifting more than 10 pounds. Call your surgeon from [facility] for outpatient follow-up and reevaluation. Take image from disc to your surgeon.
[2018-05-20] MEDS: Morphine 4 MG/ML Syringe IV (19:11)
[2018-05-20] MEDS: 0.9% Normal Saline 1,000 ML 125 ML IV (19:11)
[2018-05-20 19:31] LABS: Absolute Lymphocyte Count 1.92 X10^3/ul (0.83-4.51); Absolute Neutrophil Count 6.3 X10^3/uL (2.0-7.7); Basophil# 0.02 X10^3/uL; Basophil% 0.2 % (0-1); Eosinophil# 0.21 X10^3/uL; Eosinophils% 2.3 % (0-5); Hematocrit 44.2 % (40-54); Hemoglobin 13.9 g/dl (13.0-16.5); Lymphocyte # 1.92 X10^3/ul (4.0); Lymphocyte % 21.2 % (19-41); Mean Corp Hgb Conc 31.4 g/gl (32-36); Mean Corpuscular Hgb 27.6 pg (27.0-32.0); Mean Corpuscular Volume 87.7 fL (80-94); Mean Platelet Vol. 10.6 fl (6.2-12.0); Monocyte# 0.54 X10^3/uL; Neutrophil # 6.34 X10^3/uL (2.7-7.7); Neutrophil % 70.2 % (47-70); POSITIVE COUNT NO; POSITIVE DIFFERENTIAL NO; POSITIVE MORPHOLOGY NO; Platelet Count 194 K/mm3 (150-450); RBC Distribution Width CV 13.7 % (11.6-14.6); RBC Distribution Width SD 43.6 fl (35.1-43.9); Red Blood Count 5.04 M/mm3 (4.6-6.2)
[2018-05-20 19:46] LABS: ALB/GLOB Ratio 0.9 RATIO (0.9-2.4); AST(SGOT) 14 U/L (15-37); Alanine Aminotransfer ALT/SGPT 24 U/L (16-61); Albumin, Serum 3.6 g/dL (3.2-5.0); Alkaline Phosphatase 95 U/L (45-117); Anion Gap 6 (5-15); BUN 20 mg/dL (7-18); BUN/Creat Ratio 21.9 RATIO (10-20); Calcium,Total 8.6 mg/dL (8.5-10.1); Chloride 105 mmol/L (98-107); Creatinine, Serum 0.91 mg/dL (0.70-1.30); EST Glomerular Filtration Rate 96 mL/min (>60); Est Glom Filt Rate - Afr Amer 116 mL/min (>60); Estimated Creatinine Clearance 112.63 ml/min; Globulin 3.9 g/dL (2.2-4.2); Glucose 96 mg/dL (74-106); Lipase 82 U/L (73-393); Protein, Total 7.5 g/dL (6.4-8.2); Sodium Level 140 mmol/L (136-145)
[2018-05-20 21:21] VITALS: BP 145/87; PULSE 67; RESP 18; O2SAT 98
[2018-05-20] MEDS: oxyCODONE 5 MG Tablet PO (21:56)
[2018-05-20 21:57] VITALS: BP 139/81; PULSE 74; RESP 18; O2SAT 96
== END 2018-05-20 21:57 | disposition home or self-care (01) ==
PROVIDERS: Emergency Provider Emergency Medicine; Family Provider Family Medicine; PCP Family Medicine
DX: K46.9 Unspecified abdominal hernia without obstruction or gangrene (principal); Z90.5 Acquired absence of kidney; F32.9 Major depressive disorder, single episode, unspecified; Z85.528 Personal history of other malignant neoplasm of kidney
CPT/HCPCS: 74177; 80053; 83690; 85025; 99284; J7030; Q9967

== ENCOUNTER 2018-06-18 16:23 | Emergency (ER) | payer MEDICAID, SELFPAY ==
[2018-06-18 16:24] VITALS: BP 148/103; PULSE 87; RESP 18; TEMP 36.6; O2SAT 98; BMI 56.5
--- NOTE | 2018-06-18 17:58 | ED.DCSUM_ITS ---
- ER Visit Summary Date of Service: 06/18/18 Chief Complaint: Abdominal pain History of Present Illness: The patient is a 43 M presents to the emergency department with 3 days of intermittent abdominal pain. Patient has had a history of right partial nephrectomy. He has a known hernia at his surgical site. He has been seen and evaluated by Dr. Brasher who has allowed him to resume work with some light activity. 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 He states over the past 3 days he has really increase his activity and since then has had some increasing pain. He denies any fevers or chills. He denies any change in bowel habits. He does admit to mild dysuria. He states that he just feels very uncomfortable from his pain. He states that he noticed when he coughs, he has some bulging, but it goes away. Physical Examination: Vital signs reviewed General: Well-nourished, well-developed Head: Normocephalic, atraumatic Eyes: Pupils equal and reactive, extraocular muscles intact Neck, supple, no lymphadenopathy Heart: Regular rate and rhythm Respiratory: No distress, clear bilaterally Abdomen: Soft, mildly tender in the right upper quadrant without rebound or guarding, no palpable hernia, no evidence of incarceration, nondistended, no peritoneal signs Back: Nontender Extremities: Nontender, no edema, no cords Skin: Normal color no rash Neuro: Alert and oriented, no focal or lateralizing deficits Test Results: [] Emergency Department Course and Treatment: The patient has had some dysuria and pain into his testicles. He really has no tenderness in his flank or over his incisional sites. Urine does show evidence of infection. I do feel the patient may have mild pyelonephritis. He will be started on Cipro. His urine is cultured. He has no fever or chills. If that is safe for outpatient therapy. The patient be discharged home. Treatment Plan: [] Disposition: Discharge Impression: 1. Abdominal pain 2. Dysuria This note was generated with [employer] dictation software. It may contain incorrect words, spelling, and punctuation that were not noted in review of the chart prior to signing ED Disposition - Plan for ED Patient: Chief Complaint: Abd Pain Instructions: ED UTI Cystitis Male Prescriptions: Phenazopyridine HCl [Pyridium] 200 mg PO BID PRN PRN #10 tab PRN Reason: Pain Ciprofloxacin [Cipro] 500 mg PO BID #14 tab Referrals: Jameson Sood MD [Primary Care Provider] -
[2018-06-18] MEDS: Ondansetron ODT 4 MG Tablet PO (18:04)
[2018-06-18] MEDS: Morphine 4 MG/ML Syringe 8 MG IM (18:05)
[2018-06-18 18:10] VITALS: BP 157/96; PULSE 81; RESP 16; O2SAT 95
[2018-06-18 18:22] LABS: Bacteria 0 SEEN /hpf (None Seen); Mucous, Urine 0 SEEN /hpf (<or=2+)
[2018-06-18 18:25] LABS: Color, Urine Yellow (Yellow); Glucose, Dipstick Normal (Normal); Ketone-Dipstick Negative (Negative); Leukocyte Esterase-Dipstick 500 /ul (Negative); Nitrite-Dipstick Negative (Negative); Occult Blood-Urine 10 /ul (Negative); Protein-Dipstick 15 mg/dl (Negative); Specific Gravity, Urine 1.015 (1.002-1.030); Urine Bilirubin Dipstick Negative (Negative); Urine Clarity Cloudy (Clear); Urine Urobilinogen Normal (Normal)
[2018-06-18 18:38] LABS: Red Blood Cells-Urine 0-5 SEEN /hpf (0-5); Squamous Epithelial Cells - UA 0-5 SEEN /hpf (0-5); White Blood Cells >100 SEEN /hpf (0-5)
[2018-06-18 19:15] VITALS: PULSE 76; RESP 15; O2SAT 96
[2018-06-18] MEDS: Ciprofloxacin 500 MG Tablet PO (19:15)
== END 2018-06-18 19:17 | disposition home or self-care (01) ==
LOC: ED 18:23
PROVIDERS: Emergency Provider Emergency Medicine; Family Provider Family Medicine; PCP Family Medicine
DX: N39.0 Urinary tract infection, site not specified (principal); Z90.5 Acquired absence of kidney; E66.9 Obesity, unspecified
CPT/HCPCS: 81001; 99283

== ENCOUNTER 2018-06-23 15:58 | Emergency (ER) | payer MEDICAID, SELFPAY ==
[2018-06-23 15:59] VITALS: BP 161/99; PULSE 82; RESP 16; TEMP 36.6; O2SAT 97; BMI 59.8
--- NOTE | 2018-06-23 17:06 | RAD_ITS ---
STUDY: X-RAY CHEST REASON FOR EXAM: Male, 43 years old. Fall, pain. TECHNIQUE: PA and lateral views of the chest. COMPARISON: October 20, 2016 FINDINGS: The lungs are clear and expanded. There is no demonstrated pleural abnormality. Normal size heart. Normal mediastinum and dunia. Normal visualized pulmonary arteries. Normal visualized aortic arch and descending thoracic aorta. There are diffuse degenerative changes of the visualized thoracic spine. Normal visualized ribs, clavicles, and shoulders. There is no demonstrated abnormality of the visualized soft tissue structures of the upper abdomen. RAD/Chest PA and Lateral IMPRESSION: No acute cardiopulmonary process. Electronically Signed: Kinsey Armando MD at 19:06 EDT Tel , Service support ,
--- NOTE | 2018-06-23 17:06 | RAD_ITS ---
STUDY: X-RAY - LUMBAR SPINE REASON FOR EXAM: Male, 43 years old. Fall today. Lower back pain. TECHNIQUE: 3 view(s) of the lumbar spine were obtained. COMPARISON: May 10, 2018 FINDINGS: Normal lumbar lordosis. There is no substantial scoliosis. There is a normal alignment of the vertebrae. There is minimal multilevel spondylosis. Is minimal disc space narrowing at L4-5. There is no evidence of acute fracture or loss of vertebral axial height. There is no significant interval change. The soft tissue structures are unremarkable. RAD/Lumbar Spine 2 or 3 Views IMPRESSION: No acute abnormality or interval change. Electronically Signed: Yohannes Hurt DO at 18:40 EDT Tel [phone], Service support ,
--- NOTE | 2018-06-23 17:45 | RAD_ITS ---
STUDY: X-RAY - CERVICAL SPINE REASON FOR EXAM: Male, 43 years old. Fall TECHNIQUE: 4 view(s) of the cervical spine were obtained. COMPARISON: None FINDINGS: Normal anterior atlantoaxial articulation. Normal odontoid process. Straightening of the cervical lordosis. Normal vertebral bodies. Minimal spurring at the endplates. Normal disc space heights. The soft tissue structures are unremarkable. RAD/Cerv Spine 2 or 3 Views IMPRESSION: Minimal degenerative changes of the visualized cervical spine. Electronically Signed: Weston Doherty DO at 18:33 EDT Tel [phone], Service support ,
[2018-06-23] MEDS: HYDROcodone Bitartrate/Apap 5/325 Tablet PO (18:00)
[2018-06-23 19:00] VITALS: BP 157/97; PULSE 69; RESP 18; O2SAT 97
--- NOTE | 2018-06-23 19:18 | ED.VISSUMM ---
- ER Visit Summary Date of Service: 06/23/18 Chief Complaint: [Fall] History of Present Illness: The patient is a 43 M [presents the emergency department after sustaining a fall approximately noon. Patient states that he was climbing into a vehicle and was standing on running boards that he slipped off of and fell when the running boards broke in the hand rest he was grabbing inside the vehicle broke. Patient landed on his back. Patient complains of some pain in his neck specifically the right side of his neck as well as low back and posterior ribs. Patient denies shortness of breath. He denies any weakness in extremities. He denies any pain radiating into the arms or legs. Patient denies striking his head or loss of consciousness.] Physical Examination: [HEENT-PERRLA, EOMI. Cranial nerves II through XII grossly intact. TMs clear. Mucous membranes moist. No adenopathy. Patient has tenderness diffusely over the cervical spine and right cervical paraspinal musculature. Cardiovascular-regular rate and rhythm without murmur or ectopy Lungs-clear to auscultation, chest wall stable without crepitus or subcu emphysema Abdomen-normoactive bowel sounds, soft, nontender, no rebound or rigidity, no peritoneal signs. Back exam-patient has no real tenderness over the thoracic spine. Patient does have tenderness over the lumbar spine diffusely. Patient also has some tenderness over the right posterior ribs without any evidence of ecchymosis or bruising noted. Patient has negative straight leg raises. Deep tendon reflexes are plus 2 out of 4 bilaterally at the patella and Achilles. Patient has normal L5 extension bilaterally. Extremities-intact ?4, normal range of motion, normal pulses, atraumatic] Test Results: [X-rays of the cervical spine and lumbar spine obtained showed no fractures. Chest x-ray also was unremarkable.] Emergency Department Course and Treatment: [Patient was given 1 [place] p.o.] Treatment Plan: [Patient given a prescription for [place]] Disposition: [Discharged home in stable condition] Impression: [Mechanical fall Contusion back Cervical strain] This note was generated with [employer] dictation software. It may contain incorrect words, spelling, and punctuation that were not noted in review of the chart prior to signing ED Disposition - Plan for ED Patient: Chief Complaint: Back Referrals: Jameson Sood MD [Primary Care Provider] -
--- NOTE | 2018-06-23 19:22 | DCINST.ED_ITS ---
ED Disposition - Plan for ED Patient: Chief Complaint: Back Instructions: ED Contusion Back, ED Mechanical Fall, ED Sprain Strain Neck Prescriptions: Hydrocodone/Acetaminophen [[place] 5-325 Tablet] 1 - 2 ea PO 4X/DAY PRN PRN 3 Days #12 tab PRN Reason: Pain Naproxen [Naprosyn] 500 mg PO BID PRN #20 tab Cyclobenzaprine [Flexeril] 10 mg PO TID PRN #20 tab PRN Reason: Muscle Spasm Referrals: Jameson Sood MD [Primary Care Provider] - 5-7 Days
== END 2018-06-23 19:26 | disposition home or self-care (01) ==
PROVIDERS: Emergency Provider Emergency Medicine; Family Provider Family Medicine; PCP Family Medicine
DX: S20.229A Contusion of unspecified back wall of thorax, initial encounter (principal); S16.1XXA Strain of muscle, fascia and tendon at neck level, initial encounter; W01.0XXA Fall on same level from slipping, tripping and stumbling without subsequent striking against object, initial encounter; Y93.89 Activity, other specified; Y92.9 Unspecified place or not applicable; Y99.9 Unspecified external cause status
CPT/HCPCS: 71046; 72040; 72100; 99283

== ENCOUNTER 2018-07-06 14:52 | Emergency (ER) | payer MEDICAID, SELFPAY ==
[2018-07-06 14:53] VITALS: BP 162/103; PULSE 64; RESP 16; TEMP 36.6; O2SAT 99; BMI 61.0
--- NOTE | 2018-07-06 15:16 | ED.VISSUMM ---
- ER Visit Summary Date of Service: 07/06/18 Chief Complaint: Abdominal pain History of Present Illness: The patient is a 43 M who had a partial nephrectomy in February secondary to renal cancer. Patient states he has had right-sided abdominal pain since that surgery. His PCP feels the hernia is larger and request a stat CT scan. Patient denies fever. He denies any change in bowel habits. Physical Examination: Blood pressure is 162/103, otherwise vitals normal. Patient sitting upright in bed no acute distress. Heart is regular rate and rhythm. Lung sounds are clear. Abdomen is soft with mild tenderness in the right side of the abdomen. There is no guarding or rebound. Hypoactive bowel sounds are noted. Test Results: CBC and chemistry studies are unremarkable. LFTs normal. Urinalysis normal. CT abdomen pelvis with contrast shows right lower quadrant anterior abdominal wall hernia containing a short segment of nonobstructed small bowel. Emergency Department Course and Treatment: Patient was given IV fluids. I discussed test results with Dr. Brasher. He will be happy to see the patient in follow-up, the patient is high risk for surgery. Patient is also been seen by Dr. Slater and is encouraged to follow-up with him as well as a second opinion. At this time patient be given a dose of Toradol for pain and will be discharged home. Treatment Plan: [] Disposition: Discharge Impression: Abdominal wall hernia This note was generated with [employer] dictation software. It may contain incorrect words, spelling, and punctuation that were not noted in review of the chart prior to signing ED Disposition - Plan for ED Patient: Chief Complaint: Abd Pain Referrals: Jameson Sood MD [Primary Care Provider] -
[2018-07-06] MEDS: 0.9% Normal Saline 1,000 ML 150 ML IV (15:43)
[2018-07-06 16:00] LABS: Absolute Neutrophil Count 4.2 X10^3/uL (2.0-7.7); Basophil# 0.01 X10^3/uL; Basophil% 0.2 % (0-1); Eosinophil# 0.25 X10^3/uL; Hemoglobin 13.3 g/dl (13.0-16.5); Lymphocyte % 23.8 % (19-41); Mean Corp Hgb Conc 30.9 g/gl (32-36); Mean Corpuscular Hgb 26.7 pg (27.0-32.0); Mean Corpuscular Volume 86.3 fL (80-94); Mean Platelet Vol. 10.7 fl (6.2-12.0); Monocyte# 0.39 X10^3/uL; Monocyte% 6.2 % (0-10); Neutrophil # 4.16 X10^3/uL (2.7-7.7); Neutrophil % 65.8 % (47-70); Platelet Count 186 K/mm3 (150-450); RBC Distribution Width CV 13.9 % (11.6-14.6); RBC Distribution Width SD 43.4 fl (35.1-43.9); Red Blood Count 4.98 M/mm3 (4.6-6.2); White Blood Count 6.3 K/mm3 (4.4-11.0)
[2018-07-06 16:04] LABS: POSITIVE COUNT NO; POSITIVE DIFFERENTIAL NO; POSITIVE MORPHOLOGY NO
[2018-07-06 16:09] LABS: Bacteria 0 SEEN /hpf (None Seen); Mucous, Urine 0 SEEN /hpf (<or=2+); Red Blood Cells-Urine 0 SEEN /hpf (0-5)
[2018-07-06 16:12] LABS: AST(SGOT) 22 U/L (15-37); Alanine Aminotransfer ALT/SGPT 23 U/L (16-61); Albumin, Serum 3.4 g/dL (3.2-5.0); Alkaline Phosphatase 90 U/L (45-117); Anion Gap 3 (5-15); BUN 9 mg/dL (7-18); BUN/Creat Ratio 10.5 RATIO (10-20); Bilirubin, Direct 0.09 mg/dL (0.00-0.30); Calcium,Total 8.2 mg/dL (8.5-10.1); Chloride 104 mmol/L (98-107); Creatinine, Serum 0.86 mg/dL (0.70-1.30); EST Glomerular Filtration Rate 104 mL/min (>60); Est Glom Filt Rate - Afr Amer 126 mL/min (>60); Estimated Creatinine Clearance 107.15 ml/min; Globulin 3.6 g/dL (2.2-4.2); Glucose 78 mg/dL (74-106); Potassium 4.5 mmol/L (3.5-5.1); Sodium Level 138 mmol/L (136-145)
[2018-07-06 16:25] LABS: Color, Urine Yellow (Yellow); Glucose, Dipstick Normal (Normal); Ketone-Dipstick Negative (Negative); Leukocyte Esterase-Dipstick 100 /ul (Negative); Nitrite-Dipstick Negative (Negative); Occult Blood-Urine Negative /ul (Negative); Protein-Dipstick Negative (Negative); Urine Bilirubin Dipstick Negative (Negative); Urine Clarity Clear (Clear); Urine Urobilinogen Normal (Normal)
[2018-07-06 16:36] LABS: Squamous Epithelial Cells - UA 0-5 SEEN /hpf (0-5); White Blood Cells 0-5 SEEN /hpf (0-5)
--- NOTE | 2018-07-06 17:32 | ED.DEP ---
ED Disposition - Plan for ED Patient: Disposition: Home or Assisted Living Chief Complaint: Abd Pain Instructions: What Is a Hernia? Referrals: Jameson Sood MD [Primary Care Provider] - Rodger Brasher MD [STAFF PHYSICIAN] - Jhon Rocha MD [STAFF PHYSICIAN] -
[2018-07-06 17:34] VITALS: BP 138/89; PULSE 62; RESP 18; O2SAT 100
[2018-07-06] MEDS: Ketorolac 30 MG/ML Syringe IV (17:35)
[2018-07-06 17:37] VITALS: BP 138/89; PULSE 62; RESP 18; O2SAT 100
== END 2018-07-06 17:49 | disposition home or self-care (01) ==
PROVIDERS: Emergency Provider Emergency Medicine; Family Provider Family Medicine; PCP Family Medicine
DX: K43.9 Ventral hernia without obstruction or gangrene (principal); E66.9 Obesity, unspecified; I10 Essential (primary) hypertension; Z85.528 Personal history of other malignant neoplasm of kidney; Z90.5 Acquired absence of kidney; F32.9 Major depressive disorder, single episode, unspecified; F41.9 Anxiety disorder, unspecified
CPT/HCPCS: 74177; 80048; 80076; 81001; 85025; 99284; J7030; Q9967; A4216

== ENCOUNTER 2018-07-14 13:52 | Emergency (ER) | payer MEDICAID, SELFPAY ==
[2018-07-14 13:53] VITALS: BP 164/107; PULSE 75; RESP 17; TEMP 36.8; O2SAT 96; BMI 59.1
[2018-07-14] MEDS: HYDROcodone Bitartrate/Apap 5/325 Tablet PO (15:44)
[2018-07-14 16:04] VITALS: BP 160/100; PULSE 98; RESP 20; O2SAT 99
--- NOTE | 2018-07-14 16:26 | ED.VISSUMM ---
- ER Visit Summary Date of Service: 07/14/18 Chief Complaint: Pain History of Present Illness: The patient is a 43 M with right sided chest wall pain. This started suddenly at 12:30 PM today. The patient slipped in the bathtub and hit his right ribs on the corner of his bathtub. No other injuries. No head or neck pain. No loss of consciousness. He noticed some bruising over his right side abdomen. He does not take blood thinners. No other associated symptoms. Physical Examination: Afebrile. Vital signs unremarkable except for a blood pressure of 164/107. Patient appears uncomfortable. Holding his right chest. Head and neck atraumatic. Cranial nerves grossly intact. Heart regular. Lungs clear. Right lateral and inferior chest wall tender to palpation. No back tenderness. No abdominal tenderness. He does have some ecchymosis over his right lower quadrant. Mild tenderness with light touch to the area. Abdomen otherwise unremarkable. Test Results: X-rays of the chest and ribs were negative. Emergency Department Course and Treatment: Patient presents with a chest wall injury after a mechanical fall. He was treated with [place] while awaiting imaging. His imaging was unremarkable. On reevaluation, abdomen is soft and nontender. Lungs clear. Chest otherwise unremarkable. Patient is moving and appears much more comfortable. He will be discharged. I advised him that I do not think he has an intra-abdominal injury. This would require CT imaging. He reports he had a CT earlier this week and would like to avoid the radiation. He will return if he has new or worsening symptoms. Treatment Plan: As above Disposition: Discharge Impression: 1. Right chest wall pain This note was generated with [employer] dictation software. It may contain incorrect words, spelling, and punctuation that were not noted in review of the chart prior to signing ED Disposition - Plan for ED Patient: Chief Complaint: Abd Pain Referrals: Jameson Sood MD [Primary Care Provider] -
--- NOTE | 2018-07-14 16:29 | ED.DCSUM_ITS ---
- ER Visit Summary Date of Service: 07/14/18 Chief Complaint: Pain History of Present Illness: The patient is a 43 M with right sided chest wall pain. This started suddenly at 12:30 PM today. The patient slipped in the bathtub and hit his right ribs on the corner of his bathtub. No other injuries. No head or neck pain. No loss of consciousness. He noticed some bruising over his right side abdomen. He does not take blood thinners. No other associated symptoms. Physical Examination: Afebrile. Vital signs unremarkable except for a blood pressure of 164/107. Patient appears uncomfortable. Holding his right chest. Head and neck atraumatic. Cranial nerves grossly intact. Heart regular. Lungs clear. Right lateral and inferior chest wall tender to palpation. No back tenderness. No abdominal tenderness. He does have some ecchymosis over his right lower quadrant. Mild tenderness with light touch to the area. Abdomen otherwise unremarkable. Test Results: X-rays of the chest and ribs were negative. Emergency Department Course and Treatment: Patient presents with a chest wall injury after a mechanical fall. He was treated with [place] while awaiting imaging. His imaging was unremarkable. On reevaluation, abdomen is soft and nontender. Lungs clear. Chest otherwise unremarkable. Patient is moving and appears much more comfortable. He will be discharged. I advised him that I do not think he has an intra-abdominal injury. This would require CT imaging. He reports he had a CT earlier this week and would like to avoid the radiation. He will return if he has new or worsening symptoms. Treatment Plan: As above Disposition: Discharge Impression: 1. Right chest wall pain This note was generated with [employer] dictation software. It may contain incorrect words, spelling, and punctuation that were not noted in review of the chart prior to signing ED Disposition - Plan for ED Patient: Chief Complaint: Abd Pain Referrals: Jameson Sood MD [Primary Care Provider] -
--- NOTE | 2018-07-14 16:29 | ED.DEP ---
ED Disposition - Plan for ED Patient: Chief Complaint: Abd Pain Instructions: ED Strain Chest Wall Prescriptions: Hydrocodone Bitart/Apap 5-325 [[place] 5MG-325MG] 1 tab PO Q6H PRN PRN 3 Days #12 tab PRN Reason: Pain Referrals: Jameson Sood MD [Primary Care Provider] -
[2018-07-14 16:53] VITALS: BP 162/98; PULSE 96; RESP 22; O2SAT 97
== END 2018-07-14 16:53 | disposition home or self-care (01) ==
LOC: ED 15:27
PROVIDERS: Emergency Provider Emergency Medicine; Family Provider Family Medicine; PCP Family Medicine
DX: R07.89 Other chest pain (principal); I10 Essential (primary) hypertension; F32.9 Major depressive disorder, single episode, unspecified
CPT/HCPCS: 71101; 99283

== ENCOUNTER 2018-08-07 18:04 | Emergency (ER) | payer MEDICAID, SELFPAY ==
[2018-08-07 18:06] VITALS: BP 135/102; PULSE 73; RESP 18; TEMP 37; O2SAT 98; BMI 59.1
[2018-08-07] MEDS: 0.9% Normal Saline 1,000 ML 150 ML IV (18:41)
[2018-08-07] MEDS: Morphine 4 MG/ML Syringe IV (18:41)
[2018-08-07] MEDS: Ondansetron 4 MG/2 ML Vial IV (18:41)
[2018-08-07 18:51] LABS: Absolute Lymphocyte Count 1.27 X10^3/ul (0.83-4.51); Absolute Neutrophil Count 4.7 X10^3/uL (2.0-7.7); Basophil# 0.02 X10^3/uL; Basophil% 0.3 % (0-1); Eosinophil# 0.12 X10^3/uL; Eosinophils% 1.8 % (0-5); Hematocrit 42.8 % (40-54); Hemoglobin 13.7 g/dl (13.0-16.5); Lymphocyte # 1.27 X10^3/ul (4.0); Lymphocyte % 19.1 % (19-41); Mean Corpuscular Hgb 27.5 pg (27.0-32.0); Mean Corpuscular Volume 85.8 fL (80-94); Mean Platelet Vol. 10.6 fl (6.2-12.0); Monocyte# 0.51 X10^3/uL; Monocyte% 7.7 % (0-10); Neutrophil # 4.71 X10^3/uL (2.7-7.7); Neutrophil % 70.9 % (47-70); Platelet Count 198 K/mm3 (150-450); RBC Distribution Width CV 14.8 % (11.6-14.6); Red Blood Count 4.99 M/mm3 (4.6-6.2); White Blood Count 6.6 K/mm3 (4.4-11.0)
[2018-08-07 18:53] LABS: POSITIVE COUNT NO; POSITIVE DIFFERENTIAL NO; POSITIVE MORPHOLOGY NO
[2018-08-07 19:05] LABS: AST(SGOT) 12 U/L (15-37); Alanine Aminotransfer ALT/SGPT 20 U/L (16-61); Albumin, Serum 3.5 g/dL (3.2-5.0); Alkaline Phosphatase 103 U/L (45-117); Anion Gap 6 (5-15); BUN 17 mg/dL (7-18); BUN/Creat Ratio 20.2 RATIO (10-20); Calcium,Total 8.6 mg/dL (8.5-10.1); Chloride 109 mmol/L (98-107); Creatinine, Serum 0.84 mg/dL (0.70-1.30); EST Glomerular Filtration Rate 106 mL/min (>60); Est Glom Filt Rate - Afr Amer 128 mL/min (>60); Globulin 3.7 g/dL (2.2-4.2); Glucose 94 mg/dL (74-106); Lipase 74 U/L (73-393); Potassium 4.3 mmol/L (3.5-5.1); Protein, Total 7.2 g/dL (6.4-8.2); Sodium Level 142 mmol/L (136-145)
--- NOTE | 2018-08-07 20:00 | ED.DCSUM_ITS ---
- ER Visit Summary Date of Service: 08/07/18 Chief Complaint: Abdominal pain History of Present Illness: The patient is a 43 M with a known right lower quadrant hernia he has been evaluated for. Patient now reports intermittent epigastric pain for the past 3 weeks. Patient states he stood up today and had sudden worsening pain. He did report a vomit twice. Patient is passing gas. He states he is only been eating once a day because he started a new job. His last bowel movement was a couple days ago. He has not had fever or chills. Past history significant for partial nephrectomy secondary to renal cancer, anxiety, depression. Physical Examination: Vital signs unremarkable. Patient's lying in bed no acute distress. Head neck examination is unremarkable. Heart is regular rate and rhythm. Lung sounds are clear. Abdomen is soft with focal tenderness in the epigastric region. No guarding or rebound. No palpable hernia. Hypoactive bowel sounds noted throughout. Test Results: CBC and chemistry studies unremarkable. LFTs and lipase normal. Emergency Department Course and Treatment: Patient was given morphine, Zofran, and IV fluids. I did review his CT scan from July 06. Specifically looking at the stomach and epigastric region there was no evidence of hernia. On repeat evaluation patient does feel improved. I question whether patient could be having gastritis pain with him stating that he is now only eating once a day. We will start him on antacids and see if that improves his symptoms. Patient is supposed to be following up with surgery at [facility]. Treatment Plan: [] Disposition: Discharge Impression: Epigastric pain This note was generated with [employer] dictation software. It may contain incorrect words, spelling, and punctuation that were not noted in review of the chart prior to signing ED Disposition - Plan for ED Patient: Disposition: Home or Assisted Living Chief Complaint: Abd Pain Instructions: ED PUD Vs Gastritis Prescriptions: Lansoprazole [Prevacid] 15 mg PO BID #60 capsule Referrals: Jameson Sood MD [Primary Care Provider] - 1-2 Weeks
--- NOTE | 2018-08-07 20:03 | DCINST.ED_ITS ---
ED Disposition - Plan for ED Patient: Disposition: Home or Assisted Living Chief Complaint: Abd Pain Instructions: ED PUD Vs Gastritis Prescriptions: Lansoprazole [Prevacid] 15 mg PO BID #60 capsule Referrals: Jameson Sood MD [Primary Care Provider] - 1-2 Weeks
[2018-08-07] MEDS: Famotidine 20 MG Tablet 40 MG PO (20:09)
[2018-08-07 20:15] VITALS: BP 132/102; PULSE 56; RESP 20; O2SAT 97
== END 2018-08-07 20:17 | disposition home or self-care (01) ==
PROVIDERS: Emergency Provider Emergency Medicine; Family Provider Family Medicine; PCP Family Medicine
DX: R10.13 Epigastric pain (principal); R11.2 Nausea with vomiting, unspecified; F32.9 Major depressive disorder, single episode, unspecified; F41.9 Anxiety disorder, unspecified; Z72.0 Tobacco use; Z85.528 Personal history of other malignant neoplasm of kidney; Z90.5 Acquired absence of kidney
CPT/HCPCS: 80048; 80076; 83690; 85025; 99283; J2405

== ENCOUNTER 2018-08-26 19:00 | Emergency (ER) | payer MEDICAID, SELFPAY ==
[2018-08-26 19:01] VITALS: BP 156/81; PULSE 93; RESP 16; TEMP 36.7; O2SAT 98; BMI 56.5
--- NOTE | 2018-08-26 21:07 | ED.VISSUMM ---
- ER Visit Summary Date of Service: 08/26/18 Chief Complaint: [Bilateral hand pain and paresthesias History of Present Illness: The patient is a 43 M [presents the emergency department complaint of bilateral hand pain that he has had for a month. Patient was seen by his primary care physician and it was thought that he may have carpal tunnel therefore he was given splints for his wrists and advised to take ibuprofen. Patient has EMG studies but not till September. Patient continues to have a lot of discomfort and sometimes the pain wakes him up at night. Patient complains of paresthesias in all the digits. 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 Cranial nerves II through XII grossly intact. TMs clear. Mucous membranes moist. No adenopathy. Cardiovascular-regular rate and rhythm without murmur or ectopy Lungs-clear to auscultation, chest wall stable without crepitus or subcu emphysema Abdomen-normoactive bowel sounds, soft, nontender, no rebound or rigidity, no peritoneal signs. Extremities-intact ?4, normal range of motion, normal pulses, atraumatic]. Evaluation of both hands reveals no evidence of trauma. There is no soft tissue swelling. Patient has no evidence of thenar wasting. He is able to pinch a piece of paper between his thumb and index finger bilaterally. Patient has normal cap refill. Test Results: [None indicated] Emergency Department Course and Treatment: [Patient was given [place] for pain] Treatment Plan: [[place] for pain and advised to follow-up with orthopedics] Disposition: [Discharged home in stable condition] Impression: [Bilateral hand pain and paresthesias-etiology uncertain] This note was generated with [employer] dictation software. It may contain incorrect words, spelling, and punctuation that were not noted in review of the chart prior to signing ED Disposition - Plan for ED Patient: Chief Complaint: Upper Extremity Injury Referrals: Jameson Sood MD [Primary Care Provider] -
--- NOTE | 2018-08-26 21:11 | DCINST.ED_ITS ---
ED Disposition - Plan for ED Patient: Chief Complaint: Upper Extremity Injury Instructions: ED Carpal Tunnel Prescriptions: Hydrocodone Bitart/Apap 5-325 [[place] 5MG-325MG] 1 tab PO Q6H PRN PRN 5 Days #20 tab PRN Reason: Pain Referrals: Jameson Sood MD [Primary Care Provider] - Fantasma Dennison MD [STAFF PHYSICIAN] - 3-5 Days
[2018-08-26 21:25] VITALS: BP 150/70; PULSE 80; RESP 14; O2SAT 98
--- NOTE | 2018-08-26 21:27 | NURSING ---
patient teaching done, understands discharge instructions, norco home pack given (x4 pills) per md order.
== END 2018-08-26 21:28 | disposition home or self-care (01) ==
LOC: ED 21:09
PROVIDERS: Emergency Provider Emergency Medicine; Family Provider Family Medicine; PCP Family Medicine
DX: M79.642 Pain in left hand (principal); M79.641 Pain in right hand; R20.2 Paresthesia of skin
CPT/HCPCS: 99282

== ENCOUNTER 2018-09-06 18:35 | Emergency (ER) | payer MEDICAID, SELFPAY ==
[2018-09-06 18:37] VITALS: BP 163/120; PULSE 87; RESP 16; TEMP 36.4; O2SAT 95; BMI 57.2
--- NOTE | 2018-09-06 18:49 | ED.DCSUM_ITS ---
- ER Visit Summary Date of Service: 09/06/18 Chief Complaint: Dental pain History of Present Illness: The patient is a 43 M who broke off part of his tooth the evening of September 03. Patient states he is can start is becoming infected because it is becoming more painful. He has made several calls a dentist, but is unable to find someone who accepts Medicaid. Physical Examination: Pressure is 163/120, otherwise vitals normal. Patient sitting on the side of bed. He speaks with a strong voice and is tolerating secretions well. Head neck examination was no facial edema or erythema. Intraoral examination reveals left mandibular second molar to be broken on the posterior surface. There is minimal surrounding gum edema. Neck is supple with no lymphadenopathy. Remainder of exam is normal. Test Results: [] Emergency Department Course and Treatment: Patient be treated with Pen-Vee K. He is given a dental referral list. He is advised use Tylenol as needed for pain. Treatment Plan: [] Disposition: Discharge Impression: Odontalgia This note was generated with [employer] dictation software. It may contain incorrect words, spelling, and punctuation that were not noted in review of the chart prior to signing ED Disposition - Plan for ED Patient: Chief Complaint: Dental Referrals: Jameson Sood MD [Primary Care Provider] -
--- NOTE | 2018-09-06 18:49 | ED.DEP ---
ED Disposition - Plan for ED Patient: Disposition: Home or Assisted Living Chief Complaint: Dental Instructions: ED Tooth Pain Prescriptions: Penicillin V Potassium 500 mg PO 4X/DAY #40 tablet Additional Instructions: Dental list provided
[2018-09-06] MEDS: Penicillin Vk 250 MG Tablet 500 MG PO (18:55)
[2018-09-06] MEDS: Acetaminophen 500 MG Tablet 1000 MG PO (18:55)
[2018-09-06 18:57] VITALS: RESP 16
== END 2018-09-06 18:57 | disposition home or self-care (01) ==
PROVIDERS: Emergency Provider Emergency Medicine; Family Provider Family Medicine; PCP Family Medicine
DX: K08.89 Other specified disorders of teeth and supporting structures (principal); E66.9 Obesity, unspecified; H92.02 Otalgia, left ear; F41.9 Anxiety disorder, unspecified; F32.9 Major depressive disorder, single episode, unspecified; Z85.528 Personal history of other malignant neoplasm of kidney
CPT/HCPCS: 99283

== ENCOUNTER 2018-09-10 12:18 | Emergency (ER) | payer MEDICAID, SELFPAY ==
[2018-09-10 12:18] VITALS: BP 144/92; PULSE 75; RESP 18; TEMP 36.7; O2SAT 98; BMI 58.5
--- NOTE | 2018-09-10 13:00 | ED.VISSUMM ---
- ER Visit Summary Date of Service: 09/10/18 Chief Complaint: Worsening dental pain History of Present Illness: The patient is a 43 M who was seen on September 06 and prescribed Pen-Vee K and Tylenol for pain. Patient presents because of worsening pain. He states he has an appointment with dentist Friday of next week, September 16. He denies fever, chills or night sweats. He denies change in voice or trouble swallowing. He denies a traumatic fever, murmur, SPE or IV drug use. He is not immune suppressed. Physical Examination: Vitals noted and blood pressure elevated 144/92. He is not febrile. Patient has dental decay involving the second left lower molar. There is mild inflammation of the gum. There is no fluctuance. There is no swelling of the jaw. There is no submandibular or cervical lymphadenopathy. Trachea is midline. There is no stridor. There is no trismus. There is no evidence of Estevan's angina. Test Results: None Emergency Department Course and Treatment: Since patient has a ride he was prescribed Naprosyn and [place]. Treatment Plan: Keep appointment with dentist Disposition: Discharged to home with mother Impression: Dental pain secondary to dental abscess left lower molar This note was generated with [employer] dictation software. It may contain incorrect words, spelling, and punctuation that were not noted in review of the chart prior to signing ED Disposition - Plan for ED Patient: Disposition: Home or Assisted Living Chief Complaint: Dental Instructions: Dental Abscess Prescriptions: Hydrocodone Bitart/Apap 5-325 [[place] 5MG-325MG] 1 tablet PO Q6H PRN PRN 3 Days #10 tablet PRN Reason: Pain Naproxen [Naprosyn] 500 mg PO BID #14 tablet Referrals: Jameson Sood MD [Primary Care Provider] - Additional Instructions: Your prescription for Naprosyn and [place] were electronically transmitted to [facility], your designated pharmacy.
--- NOTE | 2018-09-10 13:05 | ED.DCSUM_ITS ---
- ER Visit Summary Date of Service: 09/10/18 Chief Complaint: Worsening dental pain History of Present Illness: The patient is a 43 M who was seen on September 06 and prescribed Pen-Vee K and Tylenol for pain. Patient presents because of worsening pain. He states he has an appointment with dentist [facility] ed of next week, September 16. He denies fever, chills or night sweats. He denies change in voice or trouble swallowing. He denies a traumatic fever, murmur, SPE or IV drug use. He is not immune suppressed. Physical Examination: Vitals noted and blood pressure elevated 144/92. He is not febrile. Patient has dental decay involving the second left lower molar. There is mild inflammation of the gum. There is no fluctuance. There is no swelling of the jaw. There is no submandibular or cervical lymphadenopathy. Trachea is midline. There is no stridor. There is no trismus. There is no evidence of Estevan's angina. Test Results: None Emergency Department Course and Treatment: Since patient has a ride he was prescribed Naprosyn and [place]. Treatment Plan: Keep appointment with dentist Disposition: Discharged to home with mother Impression: Dental pain secondary to dental abscess left lower molar This note was generated with [employer] dictation software. It may contain incorrect words, spelling, and punctuation that were not noted in review of the chart prior to signing ED Disposition - Plan for ED Patient: Disposition: Home or Assisted Living Chief Complaint: Dental Instructions: Dental Abscess Prescriptions: Hydrocodone Bitart/Apap 5-325 [[place] 5MG-325MG] 1 tablet PO Q6H PRN PRN 3 Days #10 tablet PRN Reason: Pain Naproxen [Naprosyn] 500 mg PO BID #14 tablet Referrals: Jameson Sood MD [Primary Care Provider] - Additional Instructions: Your prescription for Naprosyn and [place] were electronically transmitted to [facility], your designated pharmacy.
[2018-09-10] MEDS: Naproxen 250 MG Tablet 500 MG PO (13:58)
[2018-09-10] MEDS: HYDROcodone Bitartrate/Apap 5/325 Tablet PO (13:58)
== END 2018-09-10 14:00 | disposition home or self-care (01) ==
PROVIDERS: Emergency Provider Emergency Medicine; Family Provider Family Medicine; PCP Family Medicine
DX: K04.7 Periapical abscess without sinus (principal); K02.9 Dental caries, unspecified; E66.9 Obesity, unspecified; Z72.0 Tobacco use
CPT/HCPCS: 99282

== ENCOUNTER 2018-10-15 22:00 | Emergency (ER) | payer MEDICAID, SELFPAY ==
[2018-10-15 22:01] VITALS: BP 182/110; PULSE 86; RESP 17; TEMP 36.3; O2SAT 97; BMI 56.7
--- NOTE | 2018-10-15 22:08 | RAD_ITS ---
STUDY: X-RAY - PELVIS REASON FOR EXAM: Male, 43 years old. Recent fall with pelvic pain. TECHNIQUE: One view of the pelvis was obtained. COMPARISON: CT of the abdomen and pelvis dated July 06, 2018. FINDINGS: There is a non-specific bowel gas pattern. Normal visualized soft tissue structures. The iliac wings and sacrum are of scattered bowel gas and stool. Normal visualized bilateral superior and inferior pubic rami. Normal pubic symphysis. Normal ischial tuberosities. Normal visualized right femoral head. Normal right acetabulum. Normal right hip joint. Normal visualized left femoral head. Normal left acetabulum. Normal left hip joint. RAD/Pelvis 1 or 2 Views IMPRESSION: No radiographic evidence of acute fracture. Electronically Signed: Theresa Fontenot MD at 23:20 EST , Service support ,
--- NOTE | 2018-10-15 22:08 | RAD_ITS ---
STUDY: X-RAY - BILATERAL RIBS WITH CHEST REASON FOR EXAM: Male, 43 years old. Patient fell on ice TECHNIQUE - RIBS: 8 view(s) of the ribs. TECHNIQUE - CHEST: Single COMPARISON: None. FINDINGS - RIBS : No lung consolidation, pleural effusion or pneumothorax. Chronic size is within normal limits. Subtle fracture deformity of the ninth anterolateral rib noted likely a nondisplaced fracture IMPRESSION: No pneumothorax or lung consolidation. Subtle fracture deformity of the ninth anterolateral rib likely a nondisplaced fracture. Please correlate with point tenderness Electronically Signed: Guillermo Gross, at 22:58 EST Tel , Service support , RAD/Ribs Berny Min 4V w/PA Chest
--- NOTE | 2018-10-15 22:12 | ED.VISSUMM ---
- ER Visit Summary Date of Service: 10/15/18 Chief Complaint: Fall History of Present Illness: The patient is a 43 M presents to the emergency department after mechanical fall. Patient was in his normal state of health. He states that he slipped on ice. He fell to the ground, landing on his right ribs and right hip. He did not strike his head. He denies loss of consciousness. He has been able to ambulate. He is complaining of pain in his hips and his back. He denies any nausea or vomiting. He is not on blood thinners. Physical Examination: Vital signs reviewed General: Well-nourished, well-developed Head: Normocephalic, atraumatic Eyes: Pupils equal and reactive, extraocular muscles intact Neck, supple, no lymphadenopathy Heart: Regular rate and rhythm Respiratory: No distress, clear bilaterally, mild tenderness over right lateral ribs without step-off or deformity Abdomen: Soft, nontender, nondistended, no peritoneal signs Back: Nontender Extremities: Nontender, no edema, no cords Skin: Normal color no rash Neuro: Alert and oriented, no focal or lateralizing deficits Test Results: [] Emergency Department Course and Treatment: The patient presents after mechanical fall. I did obtain x-rays of his ribs and his pelvis. Is no evidence of acute fracture. I do feel symptoms are secondary to contusion versus nondisplaced fracture.. He will be given anti-inflammatories and antispasmodics. The patient will be discharged home. Treatment Plan: [] Disposition: Discharge Impression: 1. Mechanical fall 2. Right rib contusion This note was generated with [email or web address] dictation software. It may contain incorrect words, spelling, and punctuation that were not noted in review of the chart prior to signing ED Disposition - Plan for ED Patient: Disposition: Home or Assisted Living Chief Complaint: Fall Instructions: ED Mechanical Fall Prescriptions: RX: Naproxen [Naprosyn] 500 mg PO BID PRN #20 tab Cyclobenzaprine [Flexeril] 10 mg PO TID PRN #20 tab PRN Reason: Muscle Spasm Referrals: Jameson Sood MD [Primary Care Provider] -
[2018-10-15] MEDS: HYDROcodone Bitartrate/Apap 5/325 Tablet PO (22:47)
[2018-10-15 23:03] VITALS: BP 169/96; PULSE 85; RESP 18; O2SAT 95
--- OUTSIDE RECORDS SUMMARY | 2018-12-10 23:56 | XMS RPT_ITS ---
:1975 Author Organization OHIP Support Name Relationship Address Phone MYA, ALEKSEY/KYLEE Unavailable [address] + [place] [address] UE Unavailable Unavailable Unavailable MYA, ALEKSEY/KYLEE Unavailable [address] + [place] [address] UE Unavailable Unavailable Unavailable MYA, ALEKSEY/KYLEE Unavailable [address] + [place] [address] [place] Unavailable [address] + [place] [address] MYA, ALEKSEY/KYLEE Unavailable [address] + [place] [address] [place] Unavailable [address] + [place] [address] MYA, ALEKSEY/KYLEE Unavailable [address] + [place] [address] [place] Unavailable [address] + [place] [address] MYA, ALEKSEY/KYLEE Unavailable [address] + [place] [address] [place] Unavailable [address] + [place] [address] MYA, ALEKSEY/KYLEE Unavailable [address] + [place] [address] [place] Unavailable [address] + [place] [address] MYA, ALEKSEY/KYLEE Unavailable [address] + [place] [address] [place] Unavailable [address] + [place] [address] MYA, ALEKSEY/KYLEE Unavailable [address] + [place] [address] UE Unavailable Unavailable Unavailable MYA, ALEKSEY/KYLEE Unavailable [address] + [place] [address] UE Unavailable Unavailable Unavailable MYA, KYLEE Unavailable Unavailable + MYA, ALEKSEY/KLYEE Unavailable [address] + [place] [address] UE Unavailable Unavailable Unavailable MYA, ALEKSEY/KYLEE Unavailable [address] + [place] [address] UE Unavailable Unavailable Unavailable MYA, ALEKSEY/KYLEE Unavailable [address] + [place] [address] UE Unavailable Unavailable Unavailable MYA, ALEKSEY/KYLEE Unavailable [address] + [place] [address] UE Unavailable Unavailable Unavailable MYA, ALEKSEY/KYLEE Unavailable [address] + [place] [address] UE Unavailable Unavailable Unavailable MYA, KYLEE Unavailable Unavailable + MYA, KYLEE Unavailable Unavailable + MYA, KYLEE Unavailable Unavailable + MYA, ALEKSEY/KYLEE Unavailable [address] + [place] [address] UE Unavailable Unavailable Unavailable MYA, ALEKSEY/KYLEE Unavailable [address] + [place] [address] UE Unavailable Unavailable Unavailable MYA, ALEKSEY/KYLEE Unavailable [address] + [place] [address] UE Unavailable Unavailable Unavailable MYA, ALEKSEY/KYLEE Unavailable [address] + [place] [address] UE Unavailable Unavailable Unavailable MYA, ALEKSEY/KYLEE Unavailable [address] + [place] [address] UE Unavailable Unavailable Unavailable ALEKSEY ROQUE/KYLEE Unavailable [address] + [place] [address] UE Unavailable Unavailable Unavailable Care Team Providers Name Role Phone [place], Jameson Primary Care Unavailable Michael Hawk Attending Unavailable [place], Jameson Primary Care Unavailable Radha Aaron Attending Unavailable [place], Jameson Primary Care Unavailable Meghan Martínez Attending Unavailable [place], Jameson Primary Care Unavailable Derek Epps Attending Unavailable [place], Jameson Primary Care Unavailable Michael Hawk Attending Unavailable Meghan Martínez Attending Unavailable Meghan Martínez Referring Unavailable [place], Jameson Primary Care Unavailable [place], Jameson Primary Care Unavailable Derek Epps Attending Unavailable [place], Jameson Primary Care Unavailable Derek Epps Attending Unavailable Derek Epps Referring Unavailable [place], Jameson Primary Care Unavailable Baylee Mo Attending Unavailable [place], Jameson Primary Care Unavailable Jovanni Whipple Attending Unavailable [place], Jameson Primary Care Unavailable Edil Zhang Attending Unavailable Rodger Brasher Attending Unavailable [place], Jameson Referring Unavailable [place], Jameson Primary Care Unavailable [place], Jameson Primary Care Unavailable Jovanni Avila Attending Unavailable [place], Jameson Primary Care Unavailable Dominique Ricci Attending Unavailable [place], Jameson Primary Care Unavailable Meghan Martínez Attending Unavailable [place], Jameson Primary Care Unavailable Rodger Rock Attending Unavailable [place], Jameson Primary Care Unavailable Meghan Martínez Attending Unavailable [place], Jameson Primary Care Unavailable Dominique Ricci Attending Unavailable [place], Jameson Primary Care Unavailable Meghan Martínez Attending Unavailable [place], Jameson Primary Care Unavailable Tyrell Michaels Attending Unavailable [place], [facility] Primary Care Unavailable Jovanni Avila Attending Unavailable SCOTTY, JAYRAM Attending Unavailable JAMESON HERRERA Referring Unavailable SCOTTY, JAYRAM Referring Unavailable SCOTTY, JAYRAM Referring Unavailable SCOTTY, JAYRAM Referring Unavailable SCOTTY, JAYRAM Referring Unavailable SCOTTY, JAYRAM Admitting Unavailable SCOTTY, JAYRAM Attending Unavailable SCOTTY, JAYRAM Referring Unavailable Dr. Hali Chopra Admitting Unavailable Dr. Hali Chopra Attending Unavailable LYLY ALCANTAR Attending Unavailable JAMESON HERRERA MD [facility] Attending Unavailable DELMAR MENARD (PA) Attending Unavailable JAMESON HERRERA Referring Unavailable JAMESON HERRERA Referring Unavailable SCOTTY, JAYRAM Referring Unavailable DELMAR MENARD (PA) Attending Unavailable SCOTTY, JAYRAM Referring Unavailable JANN KOENIG Attending Unavailable SCOTTY, JAYRAM Referring Unavailable SCOT[place], JAYRAM Attending Unavailable JAMESON HERRERA Referring Unavailable Blair ALEXANDER (PA-C) Attending Unavailable FARTUN ROCHA Attending Unavailable Blair ALEXANDER (PA-C) Referring Unavailable Blair ALEXANDER (PA-C) Attending Unavailable JAMESON HERRERA Attending Unavailable JAMESON HERRERA Attending Unavailable YAQUELIN WEISS (CLOTH PIECER) Attending Unavailable Blair ALEXANDER (PA-C) Attending Unavailable DELMAR MENARD (PA) Referring Unavailable DELMAR MENARD (PA) Referring Unavailable DELMAR MENARD (PA) Referring Unavailable DELMAR MENARD (PA) Attending Unavailable DELMAR MENARD (PA) Referring Unavailable Jameson Herrera MD Referring Unavailable Jameson Herrera MD Primary Care Unavailable SCOTTY, JAYRAM Attending Unavailable Jameson Herrera MD Primary Care Unavailable SCOTTY, JAYRAM Referring Unavailable SCOTTY, JAYRAM Admitting Unavailable SCOTTY, JAYRAM Attending Unavailable Jameson Herrera MD Primary Care Unavailable SCOTTY, JAYRAM Referring Unavailable Jameson Herrera MD Primary Care Unavailable SCOTTY, JAYRAM Referring Unavailable Jameson Herrera MD Primary Care Unavailable SCOTTY, JAYRAM Referring Unavailable Jameson Herrera MD Primary Care Unavailable SCOTTY, JAYRAM Referring Unavailable HALI CHOPRA Attending Unavailable PROBLEMS PROBLEMS DATE TYPE CONDITION / CODE ATTENDING STATUS SOURCE 03/19/2018 Active Malignant neoplasm NA Active [facility] of right kidney, Clinic Main except renal pelvis [place] / C64.1(ICD-10) Repository 09/11/2018 Unknown K04.7 - Periapical Michaels, Tyrell Active [facility] abscess without Community sinus / Hospital K04.7(ICD-10) Repository 08/26/2018 Unknown G56.00 - Carpal Ungur, Remus Active [facility] tunnel syndrome, Community unspecified upper Hospital limb / Repository G56.00(ICD-10) 07/14/2018 Unknown R07.89 - Other Pranav, Rodger Active [facility] chest pain / Community R07.89(ICD-10) Hospital Repository 06/23/2018 Unknown S20.229A - UngDominique salmeron Active [place] Contusion of Community unspecified back Hospital wall of thorax, Repository initial encounter / S20.229A(ICD-10) 06/02/2018 Admitting Encounter for HALI CHOPRA Active [facility] diagnosis general adult SHE Repository medical examination without abnormal findings / Z00.00(ICD-10) 05/20/2018 Unknown K46.9 - Unspecified Le, Edil Active [facility] abdominal hernia Community without obstruction Hospital or gangrene / Repository K46.9(ICD-10) 05/10/2018 Unknown R52 - Pain, Jwayyed, Active [place] unspecified / [place] Community R52(ICD-10) Hospital Repository 05/14/2018 Unknown Z53.21 - Procedure Meghan Martínez Active [facility] and treatment not Community carried out due to Hospital patient leaving Repository prior to being seen by health care provider / Z53.21(ICD-10) 03/11/2018 Active Other specified SCOTTY, Active [place] disorders of kidney [facility] Other and ureter / [place] N28.89(ICD-10) Repository 03/09/2018 Active Morbid (severe) SCOTTY, Active [facility] obesity due to [facility] Other excess calories / [place] E66.01(ICD-10) Repository 03/11/2018 Admitting Unknown / SCOTTY, Active [facility] diagnosis UNK(Unknown) [facility] Repository 03/05/2018 Active Encounter for other NA Active [facility] preprocedural Clinic Other examination / [place] Z01.818(ICD-10) Repository 03/05/2018 Active Unknown / NA Active [facility] UNK(Unknown) Clinic Other [place] Repository 02/16/2018 Active Cellulitis, NA Active [facility] unspecified / Clinic Main L03.90(ICD-10) [place] Repository 02/16/2018 Active Encounter for NA Active [facility] screening for Clinic Main lipoid disorders / [place] Z13.220(ICD-10) Repository 02/08/2018 Unknown S39.012A - Strain Meghan Martínez Active [place] of muscle, fascia Community and tendon of lower Hospital back, initial Repository encounter / S39.012A(ICD-10) PROCEDURES PROCEDURES No Procedure Records FoundRESULTS RESULTS EMERGENCY DEPARTMENT Observed: 11/03/2018 Status: F Source: [place] SUMMARY 12:19 AM [facility] REPOSITORY [facility] Medical Records Department [address] [place] [address] Emergency Department Summary 11/02/185 MR#: [id number] Acct: [id number] Name: JORGE ROQUE Rep #: [id number] : 1975 43 From: Jovanni Whipple MD PCP: Jameson Herrera MD Status: DEP ER - ER Visit Summary Date of Service: 11/02/18 Chief Complaint: Psychiatric eval History of Present Illness: The patient is a 43 M presenting for psychiatric evaluation. Patient reports that he has been having some interpersonal conflicts lately. Patient reports that he had a long time significant other of 9 years that he had kids with that he is recently estranged from. He states that he felt like he was starting to get over her, and was starting to see other people, and now he reports that she is trying to come back into the picture. He reports that he has been having some phone conflicts with her, and was becoming exasparated by this and made a comment to her would be better if I just was not here. Patient states that he was frustrated, but does not feel suicidal. He denies being homicidal or hallucinating. He does not feel that he is a risk to himself or others. Patient states that he has been out of his Zoloft and Wellbutrin for a week or so now, and has an appointment with his psychiatrist tomorrow to get that refilled. Physical Examination: Vital signs are within normal limits, patient is afebrile. Well-nourished male no acute distress. Head normocephalic. PRL. Heart regular rate. No respiratory distress. Active full range of motion of the extremities. Skin normal color. Psyc: Normal affect, good insight, good judgment, no suicidal or homicidal ideations Test Results: None indicated Emergency Department Course and Treatment: Patient presented for psychiatric evaluation. I do not feel that the patient requires forced admission at this time. He was given doses of his Zoloft and Wellbutrin, and will follow up with his psychiatrist tomorrow. Disposition: Discharge Impression: 1. Depression This note was generated with Stell[employer] SAation software. It may contain incorrect words, spelling, and punctuation that were not noted in review of the chart prior to signing ED Disposition - Plan for ED Patient: Disposition: Home or Assisted Living Chief Complaint: Mental Health Diagnosis: Depression Instructions: ED Depression Additional Instructions: Followup with your Psychiatrist tomorrow as scheduled. Return if you feel at all unsafe. What to do if you have Problems For any increased pain, shortness of breath, bleeding, nausea or vomiting, chest pain, or any unexpected problems, contact your Primary Care Provider. Call [facility] ([phone]) or report to the closest Emergency Room. Call 911 if necessary. 11/03/18 0019 <Electronically signed by Jovanni Whipple MD> Date Jovanni Whipple MD Cosigner Signature (If Indicated): Date CC: Jameson Herrera MD EMERGENCY DEPARTMENT Observed: 10/15/2018 Status: F Source: [place] SUMMARY 11:34 PM [facility] REPOSITORY [facility] Medical Records Department [address] [place] [address] Emergency Department Summary 10/15/18 2212 MR#: [id number] Acct: [id number] Name: JORGE ROQUE Rep #: [id number] : 1975 43 From: Jovanni Avila MD PCP: Jameson Herrera MD Status: DEP ER - ER Visit Summary Date of Service: 10/15/18 Chief Complaint: Fall History of Present Illness: The patient is a 43 M presents to the emergency department after mechanical fall. Patient was in his normal state of health. He states that he slipped on ice. He fell to the ground, landing on his right ribs and right hip. He did not strike his head. He denies loss of consciousness. He has been able to ambulate. He is complaining of pain in his hips and his back. He denies any nausea or vomiting. He is not on blood thinners. Physical Examination: Vital signs reviewed General: Well-nourished, well-developed Head: Normocephalic, atraumatic Eyes: Pupils equal and reactive, extraocular muscles intact Neck, supple, no lymphadenopathy Heart: Regular rate and rhythm Respiratory: No distress, clear bilaterally, mild tenderness over right lateral ribs without step-off or deformity Abdomen: Soft, nontender, nondistended, no peritoneal signs Back: Nontender Extremities: Nontender, no edema, no cords Skin: Normal color no rash Neuro: Alert and oriented, no focal or lateralizing deficits Test Results: [] Emergency Department Course and Treatment: The patient presents after mechanical fall. I did obtain x-rays of his ribs and his pelvis. Is no evidence of acute fracture. I do feel symptoms are secondary to contusion versus nondisplaced fracture.. He will be given anti-inflammatories and antispasmodics. The patient will be discharged home. Treatment Plan: [] Disposition: Discharge Impression: 1. Mechanical fall 2. Right rib contusion This note was generated with [employer] dictation software. It may contain incorrect words, spelling, and punctuation that were not noted in review of the chart prior to signing ED Disposition - Plan for ED Patient: Disposition: Home or Assisted Living Chief Complaint: Fall Instructions: ED Mechanical Fall Prescriptions: RX: Naproxen [Naprosyn] 500 mg PO BID PRN #20 tab Cyclobenzaprine [Flexeril] 10 mg PO TID PRN #20 tab PRN Reason: Muscle Spasm Referrals: Jameson Herrera MD [Primary Care Provider] - What to do if you have Problems For any increased pain, shortness of breath, bleeding, nausea or vomiting, chest pain, or any unexpected problems, contact your Primary Care Provider. Call [facility] ([phone]) or report to the closest Emergency Room. Call 911 if necessary. 10/15/18 0608 <Electronically signed by Jovanni Avila MD> Date Jovanni Avila MD Cosigner Signature (If Indicated): Date CC: Jameson Herrera MD RIBS BERNY MIN 4V Observed: 10/15/2018 Status: F Source: JESUS W/PA CHEST 10:09 PM [facility] REPOSITORY [facility] Imaging Services [address] [place] [address] Ribs Berny Min 4V w/PA Chest MR#: [id number] Acct: [id number] Name: MYAJORGE LI Remedios Rep #: [id number] : 1975 M 43 From: Guillermo Gross MD PCP: Jameson Herrera MD Status: REG ER Study: Ribs Berny Min 4V w/PA Chest Date of Exam: 10/15/18 Exam# [id number] Ordering Dr: Jovanni Avila MD STUDY: X-RAY - BILATERAL RIBS WITH CHEST REASON FOR EXAM: Male, 43 years old. Patient fell on ice TECHNIQUE - RIBS: 8 view(s) of the ribs. TECHNIQUE - CHEST: Single COMPARISON: None. FINDINGS - RIBS : No lung consolidation, pleural effusion or pneumothorax. Chronic size is within normal limits. Subtle fracture deformity of the ninth anterolateral rib noted likely a nondisplaced fracture IMPRESSION: No pneumothorax or lung consolidation. Subtle fracture deformity of the ninth anterolateral rib likely a nondisplaced fracture. Please correlate with point tenderness Electronically Signed: Guillermo Gross, at 22:58 EST Tel , Service support , RAD/Ribs Berny Min 4V w/PA Chest CC: Jovanni Avila MD; Jameson Herrera MD Enrobing Machine Feeder: Signed PELVIS 1 OR 2 VIEWS Observed: 10/15/2018 Status: F Source: JESUS 10:09 PM [facility] REPOSITORY [facility] Imaging Services [address] [place] [address] Pelvis 1 or 2 Views MR#: [id number] Acct: [id number] Name: JORGE ROQUE Rep #: [id number] : 1975 M 43 From: Javid Fontenot MD PCP: Jameson Herrera MD Status: DEP ER Study: Pelvis 1 or 2 Views Date of Exam: 10/15/18 Exam# [id number] Ordering Dr: Jovanni Avila MD STUDY: X-RAY - PELVIS REASON FOR EXAM: Male, 43 years old. Recent fall with pelvic pain. TECHNIQUE: One view of the pelvis was obtained. COMPARISON: CT of the abdomen and pelvis dated July 06, 2018. FINDINGS: There is a non-specific bowel gas pattern. Normal visualized soft tissue structures. The iliac wings and sacrum are of scattered bowel gas and stool. Normal visualized bilateral superior and inferior pubic rami. Normal pubic symphysis. Normal ischial tuberosities. Normal visualized right femoral head. Normal right acetabulum. Normal right hip joint. Normal visualized left femoral head. Normal left acetabulum. Normal left hip joint. RAD/Pelvis 1 or 2 Views IMPRESSION: No radiographic evidence of acute fracture. Electronically Signed: Javid Fontenot MD at 23:20 EST , Service support , CC: Jovanni Avila MD; Jameson Herrera MD Enrobing Machine Feeder: Signed PROGRESS Observed: 10/15/2018 Status: COMPLETED Source: [place] 4:27 PM [facility] [place] REPOSITORY HNO ID: [id number] Author: Delmar Menard (Pa) Service: (none) Author Type: Physician Keying Machine Operator Type: Progress Notes Filed: 10/15/2018 4:49 PM Note Text: POST OPERATIVE NOTE: Jorge Roque Robotic-Assisted Laparoscopic Right Partial Nephrectomy on March 09, [address] 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 > Pain Management Consult must be made for further Narcotic Pain medications > He has a history of substance abuse and this was made very clear to him > Recommended seeing General Surgery at [facility] for his possible hernia repair > 6 month appointment w/ LUPE Ma MT, PA-C, with CT Abdomen, CXR and BMP prior to visit LUPE Cruz MT, PA-C CNOV Observed: 10/15/2018 Status: COMPLETED Source: [place] 3:30 PM [facility] REPOSITORY Office Visit (UROLWS) JORGE ROQUE ([id number]) 1975 M Date Time Provider Department 10/15/18 3:30 PM DELMAR MENARD) UROLWS During your visit today, we recorded the following information about you: Pulse Blood pressure Weight 84/minute 131/87 168.3 kg LAURA Boyer 10/15/2018 4:49 PM Signed POST OPERATIVE NOTE: Jorge Roque Robotic-Assisted Laparoscopic Right Partial Nephrectomy on March 09, [address] 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 > Pain Management Consult must be made for further Narcotic Pain medications > He has a history of substance abuse and this was made very clear to him > Recommended seeing General Surgery at [facility] for his possible hernia repair > 6 month appointment w/ BLUPE Gaming MT, PA-C, with CT Abdomen, CXR and BMP prior to visit LUPE Cruz MT, NAHUM Referring Provider: DELMAR MENARD (LAURA) [[id number]] Allergies As of Date: 10/15/2018 Noted Allergy Reaction HYDROCORTISONE 04/22/2018 2 - Rash Comments: topical Can take prednisone TRAMADOL 04/22/2018 8 - GI Upset Date Reviewed: 10/15/2018 Reviewed by: Real Alcaraz Ma - Fully Assessed Reason for Visit: Follow Up [171] Renal Cell Cancer [593] Primary Visit Diagnosis:Malignant neoplasm of right kidney, except renal pelvis (HCC) [C64.1] Other Visit Diagnoses:Obesity, Class III, BMI >= 40 E66.01 [E66.01] Ventral hernia without obstruction or gangrene [K43.9] Renal cell carcinoma of right kidney (HCC) [C64.1] Order(s):CREATININE BLD [SQCRET] Order #: [id number] FUTURE XR CHEST 2V FRONTAL/LAT [[id number]] Order #: [id number] FUTURE CT KIDNEY WO/W IVCON [[id number]] Order #: [id number] FUTURE iv contrast (will be provided with radiology test)CT kidney wow Inject, intravenously, once for 1 dose.No IV access, insert saline lock prior to the beginning of sedation, infusion, injection of imaging exam. Discontinue saline lock post exam. If Pt. has a central line or IVAD, may access for administration according to line specific nursing protocol. Once exam is complete flush line and de-access according to line specific nursing protocol in the CT contrast administration guidelines link.Disp: 1 EachRfl: 0 Prescriptions as of 10/15/2018 Sig: POLYETHYLENE GLYCOL 3350 17 G* Take 1 Packet by mouth once d* OMEPRAZOLE 20 MG CAPSULE,RIVERA* Take 1 capsule by mouth daily* LISINOPRIL 10 MG TABLET Take 1 tablet by mouth once d* HYDROXYZINE HCL 25 MG TABLET SERTRALINE 50 MG TABLET BUPROPION XL 150 MG TAB Take 150 mg by mouth once stefany* IV CONTRAST (RADIOLOGY PROCED* CT kidney wow Inject, intrave* PYRIDOXINE (VITAMIN B6) 100 M* Take 1 tablet by mouth once d* COMPOUNDED PRESCRIPTION EMG NCS G56.03 Bilateral ca* GABAPENTIN 600 MG TABLET Take 1 tablet by mouth three * DOCUSATE SODIUM 100 MG CAPSULE Take 1 capsule by mouth twice* Problem List As Of Date 10/15/2018 Noted Resolved Hypertension [I10] INVALID FOR* Left knee pain [M25.562] INVALID FOR* Patellar tendinitis [M76.50] INVALID FOR* Morbid obesity [E66.01] INVALID FOR* Right renal mass [N28.89] INVALID FOR*07/06/2018 Obesity, Class III, BMI >= 40 E66.01 [E66.01] INVALID FOR* Renal mass, right [N28.89] INVALID FOR*07/06/2018 Malignant neoplasm of right kidney, except bean*INVALID FOR* Prescriptions ordered this encounter Disp Refills Start End IV CONTRAST (RADIOLOGY PROCEDURE) 1 Ea* 0 10/15/2018 Class: In Office Sig: CT kidney wow Inject, intravenously, once for 1 dose.No IV access, insert saline lock prior to the beginning of sedation, infusion, injection of imaging exam. Discontinue saline lock post exam. If Pt. has a central line or IVAD, may access for administration according to line specific nursing protocol. Once exam is complete flush line and de-access according to line specific nursing protocol in the CT contrast administration guidelines link. Disposition: Return in about 6 months (around 04/14/2019). Follow-up and Disposition History Recorded Encounter Status:Closed by DELMAR MENARD PA-C on 10/15/18 PROGRESS Observed: 10/12/2018 Status: COMPLETED Source: [place] 12:32 PM [facility] REPOSITORY O ID: [id number] Author: Carrie Molina Ct Service: (none) Author Type: (none) Type: Progress Notes Filed: 10/12/2018 12:32 PM Note Text: Radiology Service Progress Note PATIENT NAME: Jorge Roque DATE OF SERVICE: October 12, 2018 TIME: 12:32 PM PATIENT IDENTITY VERIFICATION COMPLETED USING TWO (2) METHODS: Patient confirmed name verbally and Date of . PATIENT GENDER DATA: Male PATIENT RELEVANT IMPLANT DATA REVIEWED: Not Applicable CONTRAST INDUCED NEPHROPATHY RISK FACTORS: Not applicable CREATININE: Creatinine Date Value Ref Range Status 09/23/2018 1.18 0.73 - 1.22 mg/dL Final 03/11/2018 0.88 0.67 - 1.17 mg/dL Final 03/10/2018 0.96 0.67 - 1.17 mg/dL Final eGFR-All Other Races Date Value Ref Range Status 09/23/2018 >60 . Final Comment: eGFR (Estimated GFR) Units of measure: mL/min/1.73 meters squared eGFR is derived from the reexpressed MDRD Study equation using the following parameters: serum creatinine, age, gender and race. The creatinine assay has been calibrated to be traceable to IDMS. An eGFR <60 mL/min/1.73m2 for >3 months is consistent with chronic kidney disease. Refer to KDOQI guidelines for clinical interpretation. In patients with unstable renal function, e.g. those with acute kidney injury, the eGFR may not accurately reflect actual GFR. eGFR- Date Value Ref Range Status 09/23/2018 >60 Final P.O.C.T. RESULTS: POC done: Yes, See Lab Tab October 12, 2018 RADIOLOGIST NOTIFIED?: No ALLERGIES: Reviewed and unchanged CONTRAST ALLERGY: NO. PERIPHERAL IV ACCESS: Ambulatory: IV type: A peripheral IV was started in the Left antecubital site with a Angio cath: 20 gauge., Site assessment: Clean,Dry and Intact, Site disposition Discontinued RADIOLOGY DEPARTMENT: CT; Exam(s) Completed: Kidney SIGNED BY: Carrie Molina Ct October 12, 2018 12:[address] KIDNEY WO/W Observed: 10/12/2018 Status: F Source: [place] IVCON 11:10 AM [facility] REPOSITORY * * *Final Report* * * DATE OF EXAM: Oct 12 2018 11:10AM [facility] [id number] - CT KIDNEY WO/W IVCON / PROCEDURE REASON: Right renal mass * * * * Physician Interpretation * * * * EXAMINATION: CT ABDOMEN (KIDNEY) WITHOUT AND WITH IV CONTRAST CLINICAL HISTORY: History of partial right nephrectomy for renal cell carcinoma TECHNIQUE: Spiral imaging in three phases through the kidneys and including the entire abdomen was performed utilizing IV contrast only. No oral contrast was given. Arterial phase MIP, and nephrographic phase oblique coronal and sagittal reformations were created from thin-slice images under physician supervision on the imaging modality workstation. MQ: CTKA_3 Contrast: IV: 120 ml of Omnipaque 350 Oral Contrast: None CT Radiation dose: Integrated dose-length product (DLP) for this visit = 2573 mGy*cm. CT Dose Reduction Employed: Automated exposure control(AEC) and iterative recon COMPARISON: CT kidney 02/20/2018 RESULT: Kidneys, adrenals and ureters: Right kidney: There are postoperative changes from a partial right nephrectomy. No mass is visualized. There are no renal calculi. Right renal vasculature Arterial anatomy: single. No early branch (< 1cm). Venous anatomy: single. Right ureter: Single ureter. No hydronephrosis. Right adrenal: Normal, no nodules or thickening Left kidney: Normal, without mass or calculus. Left renal vasculature Arterial anatomy: There are 2 left renal arteries. No early branch (< 1cm). Venous anatomy: conventional, anterior to the aorta. Left ureter: Single ureter. No hydronephrosis. Left adrenal: Normal, no nodules or thickening Retroperitoneal lymphadenopathy and IVC involvement: No retroperitoneal lymphadenopathy. No IVC tumor thrombus. Abdomen and pelvis: Liver: No mass. Normal hepatic morphology. Biliary: No bile duct dilation. The gallbladder has a normal appearance. Spleen: No mass. No splenomegaly. Pancreas: No mass or duct dilation. GI tract: No dilation or wall thickening. Lymph nodes (other): No abdominal lymphadenopathy. Mesentery/Peritoneum: No ascites or mass. Retroperitoneum: No mass. Vasculature: The celiac axis and SMA are patent. The portal vein and branches, splenic vein, SMV, and hepatic veins are patent. No abdominal aortic aneurysm. Bones/Soft Tissues: No acute abnormalities. Lower thorax: No pleural effusion or consolidation. IMPRESSION: Postoperative changes from a partial right nephrectomy. No new mass or lymphadenopathy. Enrobing Machine Feeder: ARNIE Transcribe Date/Time: Oct 12 2018 12:33P Dictated by : SHERRILL COSME MD This examination was interpreted and the report reviewed and electronically signed by: SHERRILL COSME MD on Oct 12 2018 12:52PM EST [id number] XR CHEST 2V FRONTAL/LAT Observed: 09/23/2018 Status: F Source: [place] 2:27 PM [facility] * * *Final Report* * * DATE OF EXAM: Sep 23 2018 2:27PM WOX [id number] - XR CHEST 2V FRONTAL/LAT / PROCEDURE REASON: Malignant neoplasm of right kidney, except renal pelvis (HCC) * * * * Physician Interpretation * * * * EXAMINATION: CHEST RADIOGRAPH (2 VIEW FRONTAL and LATERAL) CLINICAL HISTORY: Malignant neoplasm of right kidney, except renal pelvis (HCC) MQ: XC2_5 Comparison: None RESULT: Lines, tubes, and devices: None. Lungs and pleura: No consolidation. No lung mass. No pleural effusion. Cardiomediastinal silhouette: Normal cardiomediastinal silhouette. IMPRESSION: No acute radiographic abnormality. Enrobing Machine Feeder: PSCB Transcribe Date/Time: Sep 23 2018 3:15P Dictated by : DANIELLE FARIAS MD This examination was interpreted and the report reviewed and electronically signed by: DANIELLE FARIAS MD on Sep 23 2018 3:17PM EST [id number] PROGRESS Observed: 09/23/2018 Status: COMPLETED Source: [place] 2:20 PM [facility] REPOSITORY HNO ID: [id number] Author: Swati Loomis Service: (none) Author Type: (none) Type: Progress Notes Filed: 09/23/2018 2:27 PM Note Text: Radiology Service Progress Note PATIENT NAME: Jorge Roque DATE OF SERVICE: September 23, 2018 TIME: 2:20 PM PATIENT IDENTITY VERIFICATION COMPLETED USING TWO (2) METHODS: Patient confirmed name verbally and Date of . PATIENT GENDER DATA: Male PATIENT RELEVANT IMPLANT DATA REVIEWED: Not Applicable RADIOLOGY DEPARTMENT: General X-ray: Exam(s) Completed: Chest X-Ray PERIPHERAL IV DATA: Not applicable SIGNED BY: Swati Loomis September 23, 2018 2:20 PM BASIC METABOLIC PANL Collected: 09/23/2018 Status: F Source: [place] 2:12 PM [facility] REPOSITORY TYPE CODE TESTS RESULT OUT OF REFERENCE UNITS RANGE LAB GLU 74-99 mg/dL Glucose 84 Result Comment: The [place] Diabetes Association (ADA) provides guidance for cutoff values for fasting glucose and random glucose. The ADA defines fasting as no caloric intake for at least 8 hours. Fas ting plasma glucose results between 100 to 125 mg/dL indicate increased risk for diabetes (prediabetes). Fasting plasma glucose results greater than or equal to 126 mg/dL meet the criteria for diagnosis of diabetes. In the absence of unequivocal hyperglycemia, results should be confirmed by repeat testing. In a patient with classic symptoms of hyperglycemia or hyperglycemic crisis, random plasma glucose results greater than or equal to 200 mg/dL meet the criteria for diagnosis of diabetes. Reference: Standards of Medical Care in Diabetes 2016, [place] [employer]. Diabetes Care. 2016.39(Suppl 1). LAB BUN 9-24 mg/dL BUN 14 LAB CRET 0.73-1.22 mg/dL Creatinine 1.18 LAB NA 136-144 mmol/L Sodium 142 LAB K 3.7-5.1 mmol/L Potassium 4.3 LAB CL 97-105 mmol/L Chloride 104 LAB CO2 22-30 mmol/L CO2 26 LAB AGAP 9-18 mmol/L Anion Gap 12 LAB CA 8.5-10.2 mg/dL Calcium, Total 9.2 LAB GFRAA eGFR- Amer. >60 LAB GFRNAA . eGFR-All Other Races >60 Result Comment: eGFR (Estimated GFR) Units of measure: mL/min/1.73 meters squared eGFR is derived from the reexpressed MDRD Study equation using the following parameters: serum creatinine, age, gender and race. The creatinine assay has been calibrated to be traceable to IDMS. An eGFR <60 mL/min/1.73m2 for >3 months is consistent with chronic kidney disease. Refer to KDOQI guidelines for clinical interpretation. In patients with unstable renal function, e.g. those with acute kidney injury, the eGFR may not accurately reflect actual GFR. Performed By: #### BMP #### [facility] [address], [place] [address] PROGRESS Observed: 09/15/2018 Status: COMPLETED Source: [place] 3:26 PM [facility] REPOSITORY HNO ID: [id number] Author: Blair Steiner (Mary Alexander Service: (none) Author Type: Physician Keying Machine Operator Type: Progress Notes Filed: 09/15/2018 3:49 PM Note Text: 43 year old male with c/o bilateral hand with sharp pain, tight feeling with making a fist, numb and tingling. Right goes into elbow. Ongoing over a month. EMG scheduled for Sep 17. Has braces: not working. Works in [employer]. 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 HISTORIES FAMILY HISTORY Problem Relation Age of Onset - Hypertension Father - Arthritis Father - Diabetes Father - other (obesity) Father - Hypertension Paternal Grandmother - Heart Paternal Grandmother - Diabetes Paternal Grandmother - other (renal failure) Paternal Grandmother - Hypertension Paternal Grandfather - Heart Paternal Grandfather - Diabetes Paternal Grandfather PAST MEDICAL HISTORY Diagnosis Date - Hernia, abdominal - Hypertension - Morbid obesity (HCC) - Opioid use disorder, mild, abuse (HCC) see below - Substance abuse (HCC) cocaine and cannabis per counseling center notes, seeing counseling center PAST SURGICAL HISTORY Procedure Laterality Date - PAST SURGICAL HISTORY OF 03/09/2018 part of right kidney removed - REPAIR UMBILICAL IONA,5+Y/O,REDUC 3-7-13 Social History Marital status: Spouse name: Years of education: Number of children: 2 Social History Main Topics Smoking status: Never Smoker Smokeless tobacco: Never Used Alcohol use: No Drug use: No Other Topics Concern Caffeine Concern Yes Comment:moderate use 2+ 20z bottles of soda ACTIVE PROBLEM LIST Hypertension Left Knee Pain Patellar Tendinitis Morbid Obesity (Hcc) Obesity, Class III, BMI >= 40 E66.01 Malignant Neoplasm of Right Kidney, Except Renal Pelvis (Hcc) Current Outpatient Prescriptions: polyethylene glycol 3350 (MIRALAX) 17 gram packet Take 1 Packet by mouth once daily as needed. Disp: 14 Packet Rfl: 1 omeprazole (PRILOSEC) 20 mg capsule Take 1 capsule by mouth daily before breakfast. 1/2 hr before meal. Disp: 30 capsule Rfl: 3 lisinopril (PRINIVIL) 10 mg tablet Take 1 tablet by mouth once daily. Disp: 30 tablet Rfl: 5 gabapentin (NEURONTIN) 600 mg tablet Take 1 tablet by mouth three times daily for 90 days. Disp: 90 tablet Rfl: 2 docusate sodium (COLACE) 100 mg capsule Take 1 capsule by mouth twice daily as needed. Disp: 30 capsule Rfl: 0 hydrOXYzine HCl (ATARAX) 25 mg tablet Disp: Rfl: sertraline (ZOLOFT) 50 mg tablet Disp: Rfl: COMPOUNDED PRESCRIPTION QOHRDVC84.03 Bilateral carpal tunnel syndrome (primary encounter diagnosis) Disp: 1 Each Rfl: 0 No current facility-administered medications for this visit. BP CONTROLLED (<130/80) due on 1993 DTAP,TDAP,TD(1 - Tdap) due on 1994 EXAM: BP 120/86 Pulse 80 Temp 36.6 ?C (97.8 ?F) (Tympanic) Resp 16 Wt (!) 175.1 kg (386 lb) BMI 58.69 kg/m? Obese male in no acute distress. Alert, oriented. No barriers to learning. Skin warm, dry, pink to lips and nailbeds. No unusual rashes. Respirations regular, unlabored Bilateral hands with full thenar and hypothenar eminences. Opposition strength thumb to little finger strong. Tinel's sign bilateral median nerve negative for sx. Phalen's sign negative. Radial pulses 2/4+, Distal sensation and circulation intact with prompt capillary refill. ASSESSMENT/PLAN: 1. Carpal tunnel syndrome, bilateral - ICD9: 354.0, ICD10: G56.03 Wear bilateral splints day and night including work: slip written. Deal B6: discussed side effects and administration. Advised patient frequent ED visits for pain medication is not effective strategy. Narcotics not appropriate for this condition. Urged to wear splints. - PYRIDOXINE (VITAMIN B6) 100 MG TABLET NAHUM GacriaOV Observed: 09/15/2018 Status: COMPLETED Source: [place] 3:00 PM [facility] REPOSITORY Office Visit (FAMPWS) JORGE ROQUE ([id number]) 1975 M Date Time Provider Department 09/15/18 3:00 PM Blair ALEXANDER) FAMPWS During your visit today, we recorded the following information about you: Temperature Pulse Respiration Blood pressure 97.8 degrees 80/minute 16/minute 120/86 Weight 175.1 kg Blair Alexander PA-C 09/15/2018 3:49 PM Signed 43 year old male with c/o bilateral hand with sharp pain, tight feeling with making a fist, numb and tingling. Right goes into elbow. Ongoing over a month. EMG scheduled for Sep 17. Has braces: not working. Works in [employer]. 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 HISTORIES FAMILY HISTORY Problem Relation Age of Onset - Hypertension Father - Arthritis Father - Diabetes Father - other (obesity) Father - Hypertension Paternal Grandmother - Heart Paternal Grandmother - Diabetes Paternal Grandmother - other (renal failure) Paternal Grandmother - Hypertension Paternal Grandfather - Heart Paternal Grandfather - Diabetes Paternal Grandfather PAST MEDICAL HISTORY Diagnosis Date - Hernia, abdominal - Hypertension - Morbid obesity (HCC) - Opioid use disorder, mild, abuse (HCC) see below - Substance abuse (HCC) cocaine and cannabis per counseling center notes, seeing counseling center PAST SURGICAL HISTORY Procedure Laterality Date - PAST SURGICAL HISTORY OF 03/09/2018 part of right kidney removed - REPAIR UMBILICAL IONA,5+Y/O,REDUC 3-7-13 Social History Marital status: Spouse name: Years of education: Number of children: 2 Social History Main Topics Smoking status: Never Smoker Smokeless tobacco: Never Used Alcohol use: No Drug use: No Other Topics Concern Caffeine Concern Yes Comment:moderate use 2+ 20z bottles of soda ACTIVE PROBLEM LIST Hypertension Left Knee Pain Patellar Tendinitis Morbid Obesity (Hcc) Obesity, Class III, BMI >= 40 E66.01 Malignant Neoplasm of Right Kidney, Except Renal Pelvis (Hcc) Current Outpatient Prescriptions: polyethylene glycol 3350 (MIRALAX) 17 gram packet Take 1 Packet by mouth once daily as needed. Disp: 14 Packet Rfl: 1 omeprazole (PRILOSEC) 20 mg capsule Take 1 capsule by mouth daily before breakfast. 1/2 hr before meal. Disp: 30 capsule Rfl: 3 lisinopril (PRINIVIL) 10 mg tablet Take 1 tablet by mouth once daily. Disp: 30 tablet Rfl: 5 gabapentin (NEURONTIN) 600 mg tablet Take 1 tablet by mouth three times daily for 90 days. Disp: 90 tablet Rfl: 2 docusate sodium (COLACE) 100 mg capsule Take 1 capsule by mouth twice daily as needed. Disp: 30 capsule Rfl: 0 hydrOXYzine HCl (ATARAX) 25 mg tablet Disp: Rfl: sertraline (ZOLOFT) 50 mg tablet Disp: Rfl: COMPOUNDED PRESCRIPTION NAEXWQO36.03 Bilateral carpal tunnel syndrome (primary encounter diagnosis) Disp: 1 Each Rfl: 0 No current facility-administered medications for this visit. BP CONTROLLED (<130/80) due on 1993 DTAP,TDAP,TD(1 - Tdap) due on 1994 EXAM: BP 120/86 Pulse 80 Temp 36.6 ?C (97.8 ?F) (Tympanic) Resp 16 Wt (!) 175.1 kg (386 lb) BMI 58.69 kg/m? Obese male in no acute distress. Alert, oriented. No barriers to learning. Skin warm, dry, pink to lips and nailbeds. No unusual rashes. Respirations regular, unlabored Bilateral hands with full thenar and hypothenar eminences. Opposition strength thumb to little finger strong. Tinel's sign bilateral median nerve negative for sx. Phalen's sign negative. Radial pulses 2/4+, Distal sensation and circulation intact with prompt capillary refill. ASSESSMENT/PLAN: 1. Carpal tunnel syndrome, bilateral - ICD9: 354.0, ICD10: G56.03 Wear bilateral splints day and night including work: slip written. Deal B6: discussed side effects and administration. Advised patient frequent ED visits for pain medication is not effective strategy. Narcotics not appropriate for this condition. Urged to wear splints. - PYRIDOXINE (VITAMIN B6) 100 MG TABLET NAHUM Garcia PA-C 09/15/2018 3:33 PM Signed CARPAL TUNNEL SYNDROME GENERAL MEASURES - Diagnostic studies may include electrophysiologic nerve tests (records electrical acitivity of muscles) and X-rays of the hand and wrist. -Conservative treatment is usually tried first. -Discomfort improves by shaking hands or dangling arms. If you awaken at night with pain in your hand, hang it over the side of the bed; rub or shake it. -Wearing a splint on the affected wrist may be recommended. -For work at a [employer] terminal, be sure, desk, keyboard and chair are at the proper height. Take a break once an hour. -Surgery to free the pinched nerve. Provides almost complete relief from all symptoms in 95% of patients. Procedure may be done as an outpatient. allow 2 weeks for healing. MEDICATIONS: -Anti-inflammatory drugs to reduce inflammation. -Cortisone injections at the wrist to reduce inflammation. -Vitamin B-6 (pyridoxine) may reduce symptoms; use only if prescribed for your disorder. ACTIVITY: Stay as active as your strength allows. If surgery has been necessary, allow time for recovery. Exercises may be prescribed for the hand. DIET: Eat a normal, well-balanced diet. NOTIFY our office if: -Symptoms of carpal tunnel syndrome don't lessen in 2 weeks after treatment. Referring Provider: SELF [200] Allergies As of Date: 09/15/2018 Noted Allergy Reaction HYDROCORTISONE 04/22/2018 2 - Rash Comments: topical Can take prednisone TRAMADOL 04/22/2018 8 - GI Upset Date Reviewed: 09/15/2018 Reviewed by: Colette Leon LPN - Fully Assessed Reason for Visit: Musculoskeletal Problem [69] Cmt: bilateral hand pain Left Knee Pain [1208] Abdominal Pain [1] Cmt: right side Primary Visit Diagnosis:Carpal tunnel syndrome, bilateral [G56.03] Order(s):pyridoxine, vitamin B6, (VITAMIN B-6) 100 mg tabletTake 1 tablet by mouth once daily.Disp: 30 tabletRfl: 1 Prescriptions as of 09/15/2018 Sig: POLYETHYLENE GLYCOL 3350 17 G* Take 1 Packet by mouth once d* OMEPRAZOLE 20 MG CAPSULE,RIVERA* Take 1 capsule by mouth daily* LISINOPRIL 10 MG TABLET Take 1 tablet by mouth once d* GABAPENTIN 600 MG TABLET Take 1 tablet by mouth three * DOCUSATE SODIUM 100 MG CAPSULE Take 1 capsule by mouth twice* HYDROXYZINE HCL 25 MG TABLET SERTRALINE 50 MG TABLET PYRIDOXINE (VITAMIN B6) 100 M* Take 1 tablet by mouth once d* COMPOUNDED PRESCRIPTION EMG NCS G56.03 Bilateral ca* Problem List As Of Date 09/15/2018 Noted Resolved Hypertension [I10] INVALID FOR* Left knee pain [M25.562] INVALID FOR* Patellar tendinitis [M76.50] INVALID FOR* Morbid obesity [E66.01] INVALID FOR* Right renal mass [N28.89] INVALID FOR*07/06/2018 Obesity, Class III, BMI >= 40 E66.01 [E66.01] INVALID FOR* Renal mass, right [N28.89] INVALID FOR*07/06/2018 Malignant neoplasm of right kidney, except bean*INVALID FOR* Other instructions from your clinician: CARPAL TUNNEL SYNDROME GENERAL MEASURES - Diagnostic studies may include electrophysiologic nerve tests (records electrical acitivity of muscles) and X-rays of the hand and wrist. -Conservative treatment is usually tried first. -Discomfort improves by shaking hands or dangling arms. If you awaken at night with pain in your hand, hang it over the side of the bed; rub or shake it. -Wearing a splint on the affected wrist may be recommended. 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 Take a break once an hour. -Surgery to free the pinched nerve. Provides almost complete relief from all symptoms in 95% of patients. Procedure may be done as an outpatient. allow 2 weeks for healing. MEDICATIONS: -Anti-inflammatory drugs to reduce inflammation. -Cortisone injections at the wrist to reduce inflammation. -Vitamin B-6 (pyridoxine) may reduce symptoms; use only if prescribed for your disorder. ACTIVITY: Stay as active as your strength allows. If surgery has been necessary, allow time for recovery. Exercises may be prescribed for the hand. DIET: Eat a normal, well-balanced diet. NOTIFY our office if: -Symptoms of carpal tunnel syndrome don't lessen in 2 weeks after treatment. Prescriptions ordered this encounter Disp Refills Start End PYRIDOXINE (VITAMIN B6) 100 MG TABLET 30 t* 1 09/15/2018 Route: ORAL Sig: Take 1 tablet by mouth once daily. Medications Discontinued During This Encounter ketorolac (TORADOL) 10 mg tablet 40 t* 0 03/16/2018 09/15/2018 Route: ORAL Sig: Take 1 tablet by mouth every 6 hours as needed. Disc: Reason for discontinue is not on file. Letter Text [place] [facility] [address], [place] [address] [facility] [address] Clinic #: [id number] 09/15/2018 To Whom it may concern, Jorge Roque was examined here for an acute medical condition. Please excuse him from work missed for appointment today. He may return to work with bilateral wrist splints to be worn at all times until his condition improves. As much as possible please allow him work which does not require repetitive gripping. Thank you, Tito Alexander PA-C Encounter Status:Closed by Blair ALEXANDER PA-C on 09/15/18 EMERGENCY DEPARTMENT Observed: 09/10/2018 Status: F Source: [place] SUMMARY 1:06 PM [facility] REPOSITORY [facility] Medical Records Department [address] [place] [address] Emergency Department Summary 09/10/18 1300 MR#: [id number] Acct: [id number] Name: JORGE ROQUE Rep #: [id number] : 1975 43 From: Tyrell Michaels MD PCP: Jameson Herrera MD Status: REG ER - ER Visit Summary Date of Service: 09/10/18 Chief Complaint: Worsening dental pain History of Present Illness: The patient is a 43 M who was seen on Friday, September 06 and prescribed Pen-Vee K and Tylenol for pain. Patient presents because of worsening pain. He states he has an appointment with dentist Friday of next week, September 16. He denies fever, chills or night sweats. He denies change in voice or trouble swallowing. He denies a traumatic fever, murmur, SPE or IV drug use. He is not immune suppressed. Physical Examination: Vitals noted and blood pressure elevated 144/92. He is not febrile. Patient has dental decay involving the second left lower molar. There is mild inflammation of the gum. There is no fluctuance. There is no swelling of the jaw. There is no submandibular or cervical lymphadenopathy. Trachea is midline. There is no stridor. There is no trismus. There is no evidence of Estevan's angina. Test Results: None Emergency Department Course and Treatment: Since patient has a ride he was prescribed Naprosyn and [place]. Treatment Plan: Keep appointment with dentist Disposition: Discharged to home with mother Impression: Dental pain secondary to dental abscess left lower molar This note was generated with [employer] dictation software. It may contain incorrect words, spelling, and punctuation that were not noted in review of the chart prior to signing ED Disposition - Plan for ED Patient: Disposition: Home or Assisted Living Chief Complaint: Dental Instructions: Dental Abscess Prescriptions: Hydrocodone Bitart/Apap 5-325 [[place] 5MG-325MG] 1 tablet PO Q6H PRN PRN 3 Days #10 tablet PRN Reason: Pain Naproxen [Naprosyn] 500 mg PO BID #14 tablet Referrals: Jameson Herrera MD [Primary Care Provider] - Additional Instructions: Your prescription for Naprosyn and [place] were electronically transmitted to [place], your designated pharmacy. What to do if you have Problems For any increased pain, shortness of breath, bleeding, nausea or vomiting, chest pain, or any unexpected problems, contact your Primary Care Provider. Call [facility] ([phone]) or report to the closest Emergency Room. Call 911 if necessary. 09/10/18 1306 <Electronically signed by Tyrell Michaels MD> Date Tyrell Michaels MD Cosigner Signature (If Indicated): Date CC: Jameson Herrera MD EMERGENCY DEPARTMENT Observed: 09/06/2018 Status: F Source: [place] SUMMARY 11:38 PM [facility] REPOSITORY [facility] Medical Records Department [address] [facility] [place] [address] Emergency Department Summary 09/06/18 1848 MR#: [id number] Acct: [id number] Name: JORGE ROQUE Rep #: [id number] : 1975 43 From: Meghan Martínez MD PCP: Jameson Herrera MD Status: DEP ER - ER Visit Summary Date of Service: 09/06/18 Chief Complaint: Dental pain History of Present Illness: The patient is a 43 M who broke off part of his tooth the evening of September 03. Patient states he is can start is becoming infected because it is becoming more painful. He has made several calls a dentist, but is unable to find someone who accepts Medicaid. Physical Examination: Pressure is 163/120, otherwise vitals normal. Patient sitting on the side of bed. He speaks with a strong voice and is tolerating secretions well. Head neck examination was no facial edema or erythema. Intraoral examination reveals left mandibular second molar to be broken on the posterior surface. There is minimal surrounding gum edema. Neck is supple with no lymphadenopathy. Remainder of exam is normal. Test Results: [] Emergency Department Course and Treatment: Patient be treated with Pen-Vee K. He is given a dental referral list. He is advised use Tylenol as needed for pain. Treatment Plan: [] Disposition: Discharge Impression: Odontalgia This note was generated with ElementsLocal dictation software. It may contain incorrect words, spelling, and punctuation that were not noted in review of the chart prior to signing ED Disposition - Plan for ED Patient: Chief Complaint: Dental Referrals: Jameson Herrera MD [Primary Care Provider] - What to do if you have Problems For any increased pain, shortness of breath, bleeding, nausea or vomiting, chest pain, or any unexpected problems, contact your Primary Care Provider. Call [facility] ([phone]) or report to the closest Emergency Room. Call 911 if necessary. 09/06/18 2338 <Electronically signed by Meghan Martínez MD> Date Meghan Martínez MD Cosigner Signature (If Indicated): Date CC: Jameson Herrera MD DISCHARGE INSTRUCTION Observed: 09/06/2018 Status: F Source: [place] 6:50 PM [facility] REPOSITORY [facility] Medical Records Department [address] [place] [address] Discharge Instruction 09/06/18 1849 MR#: [id number] Acct: [id number] Name: JORGE ROQUE Rep #: [id number] : 1975 43 From: Meghan Martínez MD PCP: Jameson Herrera MD Status: REG ER ED Disposition - Plan for ED Patient: Disposition: Home or Assisted Living Chief Complaint: Dental Instructions: ED Tooth Pain Prescriptions: Penicillin V Potassium 500 mg PO 4X/DAY #40 tablet Additional Instructions: Dental list provided What to do if you have Problems For any increased pain, shortness of breath, bleeding, nausea or vomiting, chest pain, or any unexpected problems, contact your Primary Care Provider. Call [facility] ([phone]) or report to the closest Emergency Room. Call 911 if necessary. 09/06/18 1850 <Electronically signed by Meghan Martínez MD> Date Meghan Martínez MD Cosigner Signature (If Indicated): Date CC: Jameson Herrera MD PROGRESS Observed: 09/03/2018 Status: COMPLETED Source: [place] 2:33 PM [facility] REPOSITORY HNO ID: [id number] Author: Yaquelin (Ramiro) Isela Service: (none) Author Type: Nurse Practitioner Type: Progress Notes Filed: 09/03/2018 4:16 PM Note Text: This is a 43 year old male who presents today with: Patient presents with: ED Follow-up: worsening carpal tunnel Abdominal Pain HISTORY OF PRESENT ILLNESS: Jorge Roque is a 43 year old male. Patient presents with: ED Follow-up: worsening carpal tunnel Abdominal Pain Pt presents today with worsening hand pain. Refers that he has been missing work. Refers that he went to the ER last week. Was taking 1600 mg of ibuprofen which hasn't helped. Refers that he was given norco at the hospital, which helped. Refers that he had the hand splints, which hasn't helped. Refers that he has repetitive movements at work. He has EMG scheduled for September. He is taking 1200 mg gabapentin every 4-6 hours. Also with complaint of abdominal pain. Refers it is in the center of stomach and in the right stomach. States that the ER told him he had acid irritating and gave him a capsule for it, which did help while he took it. He denies heartburn/reflux. He does admit to some recent constipation and only moving bowels a small amount every other day. Has to strain. No hematochezia/melena. PAST MEDICAL HISTORY: PAST MEDICAL HISTORY Diagnosis Date - Hernia, abdominal - Hypertension - Morbid obesity (HCC) - Opioid use disorder, mild, abuse (HCC) see below - Substance abuse (HCC) cocaine and cannabis per counseling center notes, seeing counseling center PAST SURGICAL HISTORY Procedure Laterality Date - PAST SURGICAL HISTORY OF 03/09/2018 part of right kidney removed - REPAIR UMBILICAL IONA,5+Y/O,REDUC 3-7-13 ALLERGIES Hydrocortisone; Tramadol MEDICATIONS Current Outpatient Prescriptions: COMPOUNDED PRESCRIPTION [id number] Bilateral carpal tunnel syndrome (primary encounter diagnosis) lisinopril (PRINIVIL) 10 mg tablet Take 1 tablet by mouth once daily. gabapentin (NEURONTIN) 600 mg tablet Take 1 tablet by mouth three times daily for 90 days. ketorolac (TORADOL) 10 mg tablet Take 1 tablet by mouth every 6 hours as needed. docusate sodium (COLACE) 100 mg capsule Take 1 capsule by mouth twice daily as needed. hydrOXYzine HCl (ATARAX) 25 mg tablet sertraline (ZOLOFT) 50 mg tablet No current facility-administered medications for this visit. FAMILY HISTORY Problem Relation Age of Onset - Hypertension Father - Arthritis Father - Diabetes Father - other (obesity) Father - Hypertension Paternal Grandmother - Heart Paternal Grandmother - Diabetes Paternal Grandmother - other (renal failure) Paternal Grandmother - Hypertension Paternal Grandfather - Heart Paternal Grandfather - Diabetes Paternal Grandfather Social History Marital status: Spouse name: Years of education: Number of children: 2 Social History Main Topics Smoking status: Never Smoker Smokeless tobacco: Never Used Alcohol use: No Drug use: No Other Topics Concern Caffeine Concern Yes Comment:moderate use 2+ 20z bottles of soda EXAM: BP 130/78 (BP Site: Left Arm, BP Position: Sitting, BP Cuff Size: Large Adult) Pulse 72 Temp 36.9 ?C (98.5 ?F) (Left Tympanic) Resp 14 Wt (!) 174.6 kg (385 lb) BMI 58.54 kg/m? PHYSICAL EXAM: General Appearance: Well appearing, alert, in no acute distress, well-hydrated, well nourished.. Skin: Skin color, texture, turgor normal, no suspicious rashes or lesions. Head: Normocephalic, no masses, lesions, tenderness or abnormalities. Eyes: Anicteric sclera. Extraocular movements are intact. . Lungs: Lungs clear to auscultation. No wheezing, rhonchi, rales. Heart: RRR without murmur, gallop, or rubs. No ectopy. Abdomen: Abdomen obese. + tenderness in the epigastric area and in the right upper quad. Bowel sounds normal. Extremities: No deformities, edema, skin discoloration, clubbing or cyanosis. Good capillary refill. . Neurologic: Gait normal. ASSESSMENT/PLAN: 1. Carpal tunnel syndrome, bilateral - ICD9: 354.0, ICD10: G56.03 (primary diagnosis) - CONSULT TO PAIN MGT ANESTHESIA - Encouraged to contact [facility] to see if EMG can be done sooner. Has transportation issues, so difficulty in going out of town. 2. Gastritis without bleeding, unspecified chronicity, unspecified gastritis type - ICD9: 535.50, ICD10: K29.70 Stop taking so much ibuprofen!!! - OMEPRAZOLE 20 MG CAPSULE,DELAYED RELEASE - CONSULT TO PAIN MGT ANESTHESIA 3. Constipation, unspecified constipation type - ICD9: 564.00, ICD10: K59.00 Start miralax daily as needed for constipation. - POLYETHYLENE GLYCOL 3350 17 GRAM ORAL POWDER PACKET - CONSULT TO PAIN MGT ANESTHESIA Discussed treatment plan and patient voices understanding. Patient's questions answered appropriately. Medications and potential side effects were discussed and patient voices understanding. Return to the office as scheduled or as needed for worsening/no improvement. Yaquelin Weiss APRN.RAMIRO CNOV Observed: 09/03/2018 Status: COMPLETED Source: [place] 2:00 PM [facility] REPOSITORY Office Visit (FAMPWS) JORGE ROQUE ([id number]) 1975 M Date Time Provider Department 09/03/18 2:00 PM YAQUELIN WEISS (RAMIRO) FAMPWS During your visit today, we recorded the following information about you: Temperature Pulse Respiration Blood pressure 98.5 degrees 72/minute 14/minute 130/78 Weight 174.6 kg Yaquelin WeissMAXX.RAMIRO 09/03/2018 4:16 PM Signed This is a 43 year old male who presents today with: Patient presents with: ED Follow-up: worsening carpal tunnel Abdominal Pain HISTORY OF PRESENT ILLNESS: Jorge Roque is a 43 year old male. Patient presents with: ED Follow-up: worsening carpal tunnel Abdominal Pain Pt presents today with worsening hand pain. Refers that he has been missing work. Refers that he went to the ER last week. Was taking 1600 mg of ibuprofen which hasn't helped. Refers that he was given norco at the hospital, which helped. Refers that he had the hand splints, which hasn't helped. Refers that he has repetitive movements at work. He has EMG scheduled for September. He is taking 1200 mg gabapentin every 4-6 hours. Also with complaint of abdominal pain. Refers it is in the center of stomach and in the right stomach. States that the ER told him he had acid irritating and gave him a capsule for it, which did help while he took it. He denies heartburn/reflux. He does admit to some recent constipation and only moving bowels a small amount every other day. Has to strain. No hematochezia/melena. PAST MEDICAL HISTORY: PAST MEDICAL HISTORY Diagnosis Date - Hernia, abdominal - Hypertension - Morbid obesity (HCC) - Opioid use disorder, mild, abuse (HCC) see below - Substance abuse (HCC) cocaine and cannabis per counseling center notes, seeing counseling center PAST SURGICAL HISTORY Procedure Laterality Date - PAST SURGICAL HISTORY OF 03/09/2018 part of right kidney removed - REPAIR UMBILICAL IONA,5+Y/O,REDUC 3-7-13 ALLERGIES Hydrocortisone; Tramadol MEDICATIONS Current Outpatient Prescriptions: COMPOUNDED PRESCRIPTION [id number] Bilateral carpal tunnel syndrome (primary encounter diagnosis) lisinopril (PRINIVIL) 10 mg tablet Take 1 tablet by mouth once daily. gabapentin (NEURONTIN) 600 mg tablet Take 1 tablet by mouth three times daily for 90 days. ketorolac (TORADOL) 10 mg tablet Take 1 tablet by mouth every 6 hours as needed. docusate sodium (COLACE) 100 mg capsule Take 1 capsule by mouth twice daily as needed. hydrOXYzine HCl (ATARAX) 25 mg tablet sertraline (ZOLOFT) 50 mg tablet No current facility-administered medications for this visit. FAMILY HISTORY Problem Relation Age of Onset - Hypertension Father - Arthritis Father - Diabetes Father - other (obesity) Father - Hypertension Paternal Grandmother - Heart Paternal Grandmother - Diabetes Paternal Grandmother - other (renal failure) Paternal Grandmother - Hypertension Paternal Grandfather - Heart Paternal Grandfather - Diabetes Paternal Grandfather Social History Marital status: Spouse name: Years of education: Number of children: 2 Social History Main Topics Smoking status: Never Smoker Smokeless tobacco: Never Used Alcohol use: No Drug use: No Other Topics Concern Caffeine Concern Yes Comment:moderate use 2+ 20z bottles of soda EXAM: BP 130/78 (BP Site: Left Arm, BP Position: Sitting, BP Cuff Size: Large Adult) Pulse 72 Temp 36.9 ?C (98.5 ?F) (Left Tympanic) Resp 14 Wt (!) 174.6 kg (385 lb) BMI 58.54 kg/m? PHYSICAL EXAM: General Appearance: Well appearing, alert, in no acute distress, well-hydrated, well nourished.. Skin: Skin color, texture, turgor normal, no suspicious rashes or lesions. Head: Normocephalic, no masses, lesions, tenderness or abnormalities. Eyes: Anicteric sclera. Extraocular movements are intact. . Lungs: Lungs clear to auscultation. No wheezing, rhonchi, rales. Heart: RRR without murmur, gallop, or rubs. No ectopy. Abdomen: Abdomen obese. + tenderness in the epigastric area and in the right upper quad. Bowel sounds normal. Extremities: No deformities, edema, skin discoloration, clubbing or cyanosis. Good capillary refill. . Neurologic: Gait normal. ASSESSMENT/PLAN: 1. Carpal tunnel syndrome, bilateral - ICD9: 354.0, ICD10: G56.03 (primary diagnosis) - CONSULT TO PAIN MGT ANESTHESIA - Encouraged to contact [facility] to see if EMG can be done sooner. Has transportation issues, so difficulty in going out of town. 2. Gastritis without bleeding, unspecified chronicity, unspecified gastritis type - ICD9: 535.50, ICD10: K29.70 Stop taking so much ibuprofen!!! - OMEPRAZOLE 20 MG CAPSULE,DELAYED RELEASE - CONSULT TO PAIN MGT ANESTHESIA 3. Constipation, unspecified constipation type - ICD9: 564.00, ICD10: K59.00 Start miralax daily as needed for constipation. - POLYETHYLENE GLYCOL 3350 17 GRAM ORAL POWDER PACKET - CONSULT TO PAIN MGT ANESTHESIA Discussed treatment plan and patient voices understanding. Patient's questions answered appropriately. Medications and potential side effects were discussed and patient voices understanding. Return to the office as scheduled or as needed for worsening/no improvement. Yaquelin Weiss APRN.CLOTH PIECER Referring Provider: SELF [200] Allergies As of Date: 09/03/2018 Noted Allergy Reaction HYDROCORTISONE 04/22/2018 2 - Rash Comments: topical Can take prednisone TRAMADOL 04/22/2018 8 - GI Upset Date Reviewed: 09/03/2018 Reviewed by: Kelly De Guzman [employer]air [employer]il Winder - Fully Assessed Reason for Visit: ED Follow-up [821] Cmt: worsening carpal tunnel Abdominal Pain [1] Primary Visit Diagnosis:Carpal tunnel syndrome, bilateral [G56.03] Other Visit Diagnoses:Gastritis without bleeding, unspecified chronicity, unspecified gastritis type [K29.70] Constipation, unspecified constipation type [K59.00] Order(s):polyethylene glycol 3350 (MIRALAX) 17 gram packetTake 1 Packet by mouth once daily as needed.Disp: 14 PacketRfl: 1 omeprazole (PRILOSEC) 20 mg capsuleTake 1 capsule by mouth daily before breakfast. 1/2 hr before meal.Disp: 30 capsuleRfl: 3 CONSULT TO PAIN MGT ANESTHESIA [20000222] Order #: [id number]: 1 Prescriptions as of 09/03/2018 Sig: COMPOUNDED PRESCRIPTION EMG NCS G56.03 Bilateral ca* LISINOPRIL 10 MG TABLET Take 1 tablet by mouth once d* GABAPENTIN 600 MG TABLET Take 1 tablet by mouth three * KETOROLAC 10 MG TABLET Take 1 tablet by mouth every * DOCUSATE SODIUM 100 MG CAPSULE Take 1 capsule by mouth twice* HYDROXYZINE HCL 25 MG TABLET SERTRALINE 50 MG TABLET POLYETHYLENE GLYCOL 3350 17 G* Take 1 Packet by mouth once d* OMEPRAZOLE 20 MG CAPSULE,RIVERA* Take 1 capsule by mouth daily* Problem List As Of Date 09/03/2018 Noted Resolved Hypertension [I10] INVALID FOR* Left knee pain [M25.562] INVALID FOR* Patellar tendinitis [M76.50] INVALID FOR* Morbid obesity [E66.01] INVALID FOR* Right renal mass [N28.89] INVALID FOR*07/06/2018 Obesity, Class III, BMI >= 40 E66.01 [E66.01] INVALID FOR* Renal mass, right [N28.89] INVALID FOR*07/06/2018 Malignant neoplasm of right kidney, except bean*INVALID FOR* Prescriptions ordered this encounter Disp Refills Start End POLYETHYLENE GLYCOL 3350 17 GRAM ORA* 14 P* 1 09/03/2018 Route: ORAL Sig: Take 1 Packet by mouth once daily as needed. OMEPRAZOLE 20 MG CAPSULE,DELAYED REL* 30 c* 3 09/03/2018 Route: ORAL Sig: Take 1 capsule by mouth daily before breakfast. 1/2 hr before meal. Follow-up and Disposition History Recorded Letter Text Yaquelin Weiss CNP [address], [place] [address] 09/03/2018 TO WHOM IT MAY CONCERN: This is to confirm that Jorge Remedios Mya had an appointment and was seen at the [facility] in the Department of Family Medicine by Brunilda Jose 09/03/2018. Please excuse him from work on 09/01/18 - 09/04/18 for medical reasons. Sincerely yours, Yaquelin Weiss CNP Encounter Status:Closed by YAQUELIN WEISS CNP on 09/03/18 DISCHARGE INSTRUCTION Observed: 08/26/2018 Status: F Source: [place] 9:11 PM [facility] REPOSITORY [facility] Medical Records Department [address] [place] [id number] Discharge Instruction 08/26/182108 MR#: [id number] Acct: [id number] Name: JORGE ROQUE Rep #: [id number] : 1975 43 From: Dominique Ricci DO PCP: Jameson Herrera MD Status: REG ER ED Disposition - Plan for ED Patient: Chief Complaint: Upper Extremity Injury Instructions: ED Carpal Tunnel Prescriptions: Hydrocodone Bitart/Apap 5-325 [[place] 5MG-325MG] 1 tab PO Q6H PRN PRN 5 Days #20 tab PRN Reason: Pain Referrals: Jameson Herrera MD [Primary Care Provider] - Fantasma Dennison MD [STAFF PHYSICIAN] - 3-5 Days What to do if you have Problems For any increased pain, shortness of breath, bleeding, nausea or vomiting, chest pain, or any unexpected problems, contact your Primary Care Provider. Call [facility] ([phone]) or report to the closest Emergency Room. Call 911 if necessary. 08/26/182110 <Electronically signed by Dominique Ricci DO> Date Dominique Ricci DO Cosigner Signature (If Indicated): Date CC: Jameson Herrera MD EMERGENCY DEPARTMENT Observed: 08/26/2018 Status: F Source: [place] SUMMARY 9:09 PM [facility] REPOSITORY [facility] Medical Records Department [address] [place] [address] Emergency Department Summary 08/26/182106 MR#: [id number] Acct: [id number] Name: JORGE ROQUE Remedios Rep #: [id number] : 1975 43 From: Dominique Ricci DO PCP: Jameson Herrera MD Status: REG ER - ER Visit Summary Date of Service: 08/26/18 Chief Complaint: [Bilateral hand pain and paresthesias History of Present Illness: The patient is a 43 M [presents the emergency department complaint of bilateral hand pain that he has had for a month. Patient was seen by his primary care physician and it was thought that he may have carpal tunnel therefore he was given splints for his wrists and advised to take ibuprofen. Patient has EMG studies but not till September. Patient continues to have a lot of discomfort and sometimes the pain wakes him up at night. Patient complains of paresthesias in all the digits. 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 Cranial nerves II through XII grossly intact. TMs clear. Mucous membranes moist. No adenopathy. Cardiovascular-regular rate and rhythm without murmur or ectopy Lungs-clear to auscultation, chest wall stable without crepitus or subcu emphysema Abdomen-normoactive bowel sounds, soft, nontender, no rebound or rigidity, no peritoneal signs. Extremities-intact 4, normal range of motion, normal pulses, atraumatic]. Evaluation of both hands reveals no evidence of trauma. There is no soft tissue swelling. Patient has no evidence of thenar wasting. He is able to pinch a piece of paper between his thumb and index finger bilaterally. Patient has normal cap refill. Test Results: [None indicated] Emergency Department Course and Treatment: [Patient was given [place] for pain] Treatment Plan: [[place] for pain and advised to follow-up with orthopedics] Disposition: [Discharged home in stable condition] Impression: [Bilateral hand pain and paresthesias-etiology uncertain] This note was generated with ElementsLocal dictation software. It may contain incorrect words, spelling, and punctuation that were not noted in review of the chart prior to signing ED Disposition - Plan for ED Patient: Chief Complaint: Upper Extremity Injury Referrals: Jameson Herrera MD [Primary Care Provider] - What to do if you have Problems For any increased pain, shortness of breath, bleeding, nausea or vomiting, chest pain, or any unexpected problems, contact your Primary Care Provider. Call [facility] ([phone]) or report to the closest Emergency Room. Call 911 if necessary. 08/26/18 0267 <Electronically signed by Dominique Ricci DO> Date Dominique Ricci DO Cosigner Signature (If Indicated): Date CC: Jameson Herrera MD ED NOTE Observed: 08/17/2018 Status: COMPLETED Source: [place] 7:29 PM [facility] REPOSIT[facility] O ID: [id number] Author: Sandra (Rn) ANA LAURA Guan Service: Emergency Medicine Author Type: Registered Nurse Type: ED Notes Filed: 08/17/2018 7:35 PM Note Text: Patient informed: the name of medication, why we are giving it, possible side effects, what they may expect to feel, and was offered a chance to ask questions, prior to the administration of Naproxen ED PROV NOTE Observed: 08/17/2018 Status: COMPLETED Source: [place] 7:19 PM [facility] REPOSITORY O ID: [id number] Author: Ke Stroud MD Service: Emergency Medicine Author Type: Physician Type: ED Provider Notes Filed: 08/17/2018 7:22 PM Note Text: ED Provider Note Patient Name: Jorge Roque SERVICE DATE: 08/17/18 History Patient presents with: Hand Pain Patient states he's been having numbness tingling of his hands when he wakes up in the morning. It was bad this morning. He states he has too much tingling in his left hand go to work today. He denies any trauma. Tingling in his is his thumb index and long finger on the palmar side. 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 He does not work with vibratory tools. He has no history of thyroid disease. He does have high blood pressure and has not yet taken his medication today. PAST MEDICAL HISTORY Diagnosis Date - Hernia, abdominal - Hypertension - Morbid obesity (HCC) - Opioid use disorder, mild, abuse (HCC) see below - Substance abuse (HCC) cocaine and cannabis per counseling center notes, seeing counseling center PAST SURGICAL HISTORY Procedure Laterality Date - PAST SURGICAL HISTORY OF 03/09/2018 part of right kidney removed - REPAIR UMBILICAL IONA,5+Y/O,REDUC 3-7-13 FAMILY HISTORY Problem Relation Age of Onset - Hypertension Father - Arthritis Father - Diabetes Father - other (obesity) Father - Hypertension Paternal Grandmother - Heart Paternal Grandmother - Diabetes Paternal Grandmother - other (renal failure) Paternal Grandmother - Hypertension Paternal Grandfather - Heart Paternal Grandfather - Diabetes Paternal Grandfather Social History Social History Main Topics - Smoking status: Never Smoker - Smokeless tobacco: Never Used - Alcohol use No - Drug use: No - Sexual activity: Not on file ALLERGIES Allergen Reactions - Hydrocortisone Rash topical Can take prednisone - Tramadol GI Upset Review of Systems Constitutional: Negative for fatigue and fever. Cardiovascular: Negative for chest pain. Endocrine: Negative for polydipsia and polyuria. Musculoskeletal: Negative for neck pain and neck stiffness. Skin: Negative for color change and pallor. Neurological: Positive for numbness. Negative for dizziness, light-headedness and headaches. Physical Exam BP 176/90 Pulse 86 Temp 97.1 Resp 20 Ht 5' 8 (1.73m) Wt 365 lb (165.6kg) SpO2 100% BMI 55.51 kg/(m2). Physical Exam Constitutional: He appears well-developed and well-nourished. HENT: Head: Normocephalic and atraumatic. Neck: Normal range of motion. Neck supple. No pain with range of motion. Cardiovascular: Normal rate and regular rhythm. Pulmonary/Chest: Effort normal and breath sounds normal. Musculoskeletal: Normal range of motion. Wrist showed no erythema, swelling or focal tenderness. There is no asymmetry. His range of motion is good. Capillary refill and color is normal. Lymphadenopathy: He has no cervical adenopathy. Neurological: He is alert. Patient has a strongly positive Tinel's sign over the median nerve at both wrists. He also has a positive Phalen sign. Diagnostic Testing ED Labs Ordered and Reviewed - No data to display Procedures ED Course / Clinical Impression Clinical Impressions as of Aug 17 1919 Bilateral carpal tunnel syndrome MDM / Disposition / Plan MDM patient has exam findings and history consistent with carpal tunnel. We will give him bilateral splints. I will start him on a brief course of nonsteroidals. I explained that if he is not improving he may need injections or even surgery in the future. He needs to follow- up with his physician. SIGNATURE: MD Ke Bautista MD 08/17/181921 ED NOTE Observed: 08/17/2018 Status: COMPLETED Source: [place] 7:07 PM [facility] [place] REPOSITORY HNO ID: [id number] Author: Sandra (Rn) Freida RN Service: Emergency Medicine Author Type: Registered Nurse Type: ED Notes Filed: 08/17/2018 7:08 PM Note Text: Patient states he woke up with bilateral hand numbness and pain.patient states left side does goes up to his elbow. Patient denies any know injury. Patient alert and oriented ambulates to room 10 EMERGENCY DEPARTMENT Observed: 08/08/2018 Status: F Source: MOODY SUMMARY 1:06 AM [facility] REPOSITORY [facility] Medical Records Department [address] [place] [address] Emergency Department Summary 08/07/181999 MR#: [id number] Acct: [id number] Name: JOGRE ROQUE Rep #: [id number] : 1975 43 From: Meghan Martínez MD PCP: Jameson Herrera MD Status: DEP ER - ER Visit Summary Date of Service: 08/07/18 Chief Complaint: Abdominal pain History of Present Illness: The patient is a 43 M with a known right lower quadrant hernia he has been evaluated for. Patient now reports intermittent epigastric pain for the past 3 weeks. Patient states he stood up today and had sudden worsening pain. He did report a vomit twice. Patient is passing gas. He states he is only been eating once a day because he started a new job. His last bowel movement was a couple days ago. He has not had fever or chills. Past history significant for partial nephrectomy secondary to renal cancer, anxiety, depression. Physical Examination: Vital signs unremarkable. Patient's lying in bed no acute distress. Head neck examination is unremarkable. Heart is regular rate and rhythm. Lung sounds are clear. Abdomen is soft with focal tenderness in the epigastric region. No guarding or rebound. No palpable hernia. Hypoactive bowel sounds noted throughout. Test Results: CBC and chemistry studies unremarkable. LFTs and lipase normal. Emergency Department Course and Treatment: Patient was given morphine, Zofran, and IV fluids. I did review his CT scan from July 06. Specifically looking at the stomach and epigastric region there was no evidence of hernia. On repeat evaluation patient does feel improved. I question whether patient could be having gastritis pain with him stating that he is now only eating once a day. We will start him on antacids and see if that improves his symptoms. Patient is supposed to be following up with surgery at [facility]. Treatment Plan: [] Disposition: Discharge Impression: Epigastric pain This note was generated with ElementsLocal dictation software. It may contain incorrect words, spelling, and punctuation that were not noted in review of the chart prior to signing ED Disposition - Plan for ED Patient: Disposition: Home or Assisted Living Chief Complaint: Abd Pain Instructions: ED PUD Vs Gastritis Prescriptions: Lansoprazole [Prevacid] 15 mg PO BID #60 capsule Referrals: Jameson Herrera MD [Primary Care Provider] - 1-2 Weeks What to do if you have Problems For any increased pain, shortness of breath, bleeding, nausea or vomiting, chest pain, or any unexpected problems, contact your Primary Care Provider. Call [facility] ([phone]) or report to the closest Emergency Room. Call 911 if necessary. 08/08/186 <Electronically signed by Meghan Martínez MD> Date Meghan Martínez MD Cosigner Signature (If Indicated): Date CC: Jameson Herrera MD DISCHARGE INSTRUCTION Observed: 08/07/2018 Status: F Source: MOODY 8:03 PM [facility] REPOSITORY [facility] Medical Records Department [address] [place] [address] Discharge Instruction 08/07/181999 MR#: [id number] Acct: [id number] Name: MYAJORGE Remedios Rep #: [id number] : 1975 43 From: Meghan Martínez MD PCP: Jameson Herrera MD Status: REG ER ED Disposition - Plan for ED Patient: Disposition: Home or Assisted Living Chief Complaint: Abd Pain Instructions: ED PUD Vs Gastritis Prescriptions: Lansoprazole [Prevacid] 15 mg PO BID #60 capsule Referrals: Jameson Herrera MD [Primary Care Provider] - 1-2 Weeks What to do if you have Problems For any increased pain, shortness of breath, bleeding, nausea or vomiting, chest pain, or any unexpected problems, contact your Primary Care Provider. Call [facility] ([phone]) or report to the closest Emergency Room. Call 911 if necessary. 08/07/182002 <Electronically signed by Meghan Martínez MD> Date Meghan Martínez MD Cosigner Signature (If Indicated): Date CC: Jameson Herrera MD CBC W/DIFF, AUTOMATED Collected: 08/07/2018 Status: F Source: JESUS 6:40 PM [facility] REPOSITORY TYPE CODE TESTS RESULT OUT OF RANGE REFERENCE UNITS LAB L100.1000 4.4-11.0 K/mm3 Normal WBC 6.6 LAB L100.1200 4.6-6.2 M/mm3 Normal RBC 4.99 LAB L100.1300 13.0-16.5 g/dl Normal HGB 13.7 LAB L100.1400 40-54 % Normal HCT 42.8 LAB L100.1500 80-94 fL Normal MCV 85.8 LAB L100.1600 27.0-32.0 pg Normal MCH 27.5 LAB L100.1700 32-36 g/gl Normal MCHC 32.0 LAB L100.1810 11.6-14.6 % High RDW CV 14.8 LAB L100.1820 35.1-43.9 fl High RDW SD 46.0 LAB L100.1900 150-450 K/mm3 Normal PLT 198 LAB L100.2000 6.2-12.0 fl Normal MPV 10.6 LAB L100.2100 47-70 % High NEUT% 70.9 LAB L100.2200 19-41 % Normal LY% 19.1 LAB L100.2300 0-10 % Normal MONO% 7.7 LAB L100.2400 0-5 % Normal EO% 1.8 LAB L100.2500 0-1 % Normal BASO% 0.3 LAB L100.2550 0.0-0.9 % Normal IM GRAN % 0.200 Result Comment: IG% - Immature Granulocytes (promyelocytes, myelocytes and metamyelocytes) > 1% indicates that a LEFT SHIFT is Present. LAB L100.2620 2.0-7.7 X10 3/uL Normal Absolute Neut 4.7 LAB L100.2720 0.83-4.51 X10 3/ul Normal Absolute Lymph 1.27 Performed By: #### L100.0100 #### [facility] [address] [place], [place], [address] BASIC METABOLIC Collected: 08/07/2018 Status: F Source: JESUS PROFILE (BMP) 6:40 PM [facility] REPOSITORY TYPE CODE TESTS RESULT OUT OF RANGE REFERENCE UNITS LAB L501.0100 74-106 mg/dL Normal GLU 94 Result Comment: Please note revised GLUCOSE reference range effective 2017. LAB L501.1000 7-18 mg/dL Normal BUN 17 LAB L501.1100 0.70-1.30 mg/dL Normal CREAT,SERUM 0.84 Result Comment: The validity of the calculated GFR AND GFRAA in patients over 70 years has not been determined. Clinical correlation is essential. LAB L501.1110 >60 mL/min Normal EST GFR 106 Result Comment: Non- GFR Calc LAB L501.1115 >60 mL/min Normal EST GFR - AA 128 Result Comment: GFR Calc LAB L501.1255 ml/min Normal Estimated CRCL 109.70 LAB L501.1300 10-20 RATIO High BUN/CRE 20.2 LAB L501.2200 8.5-10 mg/dL .1 CA Normal 8.6 LAB L501.5300 136-14 mmol/L 5 NA Normal 142 LAB L501.5600 3.5-5. mmol/L 1 K Normal 4.3 LAB L501.5900 98-107 mmol/L High CL 109 LAB L501.6100 21.0-3 mmol/L 2.0 CO2 Normal 27.0 LAB L501.6200 5-15 GAP Normal 6 Performed By: #### L500.2500, L500.3400, L501.2450 #### [facility] [address] [place], [address] LIVER PROFILE Collected: 08/07/2018 Status: F Source: JESUS 6:40 PM [facility] REPOSITORY TYPE CODE TESTS RESULT OUT OF RANGE REFERENCE UNITS LAB L501.1500 6.4-8.2 g/dL Normal T PROT 7.2 LAB L501.1800 3.2-5.0 g/dL Normal ALB 3.5 LAB L501.1950 2.2-4.2 g/dL Normal GLOB 3.7 LAB L501.4100 15-37 U/L Low AST 12 LAB L501.4305 45-117 U/L Normal ALK P 103 LAB L501.4405 16-61 U/L Normal ALT 20 LAB L501.4600 0.20-1.00 mg/dL Normal T BILI 0.30 LAB L501.4700 0.00-0.30 mg/dL Normal D BILI 0.10 Performed By: #### L500.2500, L500.3400, L501.2450 #### [facility] [address] [facility] [place], [address] LIPASE Collected: 08/07/2018 Status: F Source: MOODY 6:40 PM [facility] REPOSITORY TYPE CODE TESTS RESULT OUT OF RANGE REFERENCE UNITS LAB L501.2450 73-393 U/L Normal LIPASE 74 Performed By: #### L500.2500, L500.3400, L501.2450 #### [facility] [address] [place], [address] EMERGENCY DEPARTMENT Observed: 07/14/2018 Status: F Source: MOODY SUMMARY 11:25 PM [facility] REPOSITORY [facility] Medical Records Department [address] [place] [address] Emergency Department Summary 07/14/18 1626 MR#: [id number] Acct: [id number] Name: JORGE ROQUE Rep #: [id number] : 1975 43 From: Rodger Rock MD PCP: Jameson Herrera MD Status: DEP ER - ER Visit Summary Date of Service: 07/14/18 Chief Complaint: Pain History of Present Illness: The patient is a 43 M with right sided chest wall pain. This started suddenly at 12:30 PM today. The patient slipped in the bathtub and hit his right ribs on the corner of his bathtub. No other injuries. No head or neck pain. No loss of consciousness. He noticed some bruising over his right side abdomen. He does not take blood thinners. No other associated symptoms. Physical Examination: Afebrile. Vital signs unremarkable except for a blood pressure of 164/107. Patient appears uncomfortable. Holding his right chest. Head and neck atraumatic. Cranial nerves grossly intact. Heart regular. Lungs clear. Right lateral and inferior chest wall tender to palpation. No back tenderness. No abdominal tenderness. He does have some ecchymosis over his right lower quadrant. Mild tenderness with light touch to the area. Abdomen otherwise unremarkable. Test Results: X-rays of the chest and ribs were negative. Emergency Department Course and Treatment: Patient presents with a chest wall injury after a mechanical fall. He was treated with [place] while awaiting imaging. His imaging was unremarkable. On reevaluation, abdomen is soft and nontender. Lungs clear. Chest otherwise unremarkable. Patient is moving and appears much more comfortable. He will be discharged. I advised him that I do not think he has an intra-abdominal injury. This would require CT imaging. He reports he had a CT earlier this week and would like to avoid the radiation. He will return if he has new or worsening symptoms. Treatment Plan: As above Disposition: Discharge Impression: 1. Right chest wall pain This note was generated with ElementsLocal dictation software. It may contain incorrect words, spelling, and punctuation that were not noted in review of the chart prior to signing ED Disposition - Plan for ED Patient: Chief Complaint: Abd Pain Referrals: Jameson Herrera MD [Primary Care Provider] - What to do if you have Problems For any increased pain, shortness of breath, bleeding, nausea or vomiting, chest pain, or any unexpected problems, contact your Primary Care Provider. Call [facility] ([phone]) or report to the closest Emergency Room. Call 911 if necessary. 07/14/18 2325 <Electronically signed by Rodger Rock MD> Date Rodger Rock MD Cosigner Signature (If Indicated): Date CC: Jameson Herrera MD DISCHARGE INSTRUCTION Observed: 07/14/2018 Status: F Source: JESUS 11:25 PM [facility] REPOSITORY [facility] Medical Records Department [address] [place] [address] Discharge Instruction 07/14/18 1629 MR#: [id number] Acct: [id number] Name: JORGE ROQUE Rep #: [id number] : 1975 43 From: Rodger Rock MD PCP: Jameson Herrera MD Status: DEP ER ED Disposition - Plan for ED Patient: Chief Complaint: Abd Pain Instructions: ED Strain Chest Wall Prescriptions: Hydrocodone Bitart/Apap 5-325 [[place] 5MG-325MG] 1 tab PO Q6H PRN PRN 3 Days #12 tab PRN Reason: Pain Referrals: Jameson Herrera MD [Primary Care Provider] - What to do if you have Problems For any increased pain, shortness of breath, bleeding, nausea or vomiting, chest pain, or any unexpected problems, contact your Primary Care Provider. Call [facility] ([phone]) or report to the closest Emergency Room. Call 911 if necessary. 07/14/182324 <Electronically signed by Rodger Rock MD> Date Rodger Rock MD Cosigner Signature (If Indicated): Date CC: Jameson Herrera MD RIBS UNI MIN 3V Observed: 07/14/2018 Status: F Source: JESUS W/PA CHEST 3:26 PM [facility] REPOSITORY [facility] Imaging Services [address] [place] [address] Ribs Uni Min 3V w/PA Chest MR#: [id number] Acct: [id number] Name: JORGE ROQUE Rep #: [id number] : 1975 M 43 From: Chencho Templeton MD PCP: Jameson Herrera MD Status: REG ER Study: Ribs Uni Min 3V w/PA Chest Date of Exam: 07/14/18 Exam# [id number] Ordering Dr: Rodger Rock MD STUDY: X-RAY - UNILATERAL RIBS ( RIGHT ) WITH CHEST REASON FOR EXAM: Male, 43 years old. ] Pain following a fall. TECHNIQUE - RIBS: 4 view(s) of the ribs. TECHNIQUE - CHEST: Single PA view of the chest. COMPARISON: Comparison is made with prior chest radiograph dated June 23, 2018. FINDINGS - RIBS: Normal visualized ribs without a demonstrated fracture. FINDINGS - CHEST: The lungs are clear and expanded. Scattered calcified granulomas. There is no demonstrated pleural abnormality. Normal size heart. Normal mediastinum and dunia. Normal visualized pulmonary arteries. Normal visualized aortic arch and descending thoracic aorta. Normal visualized thoracic spine. Normal visualized ribs, clavicles, and shoulders. There is no demonstrated abnormality of the visualized soft tissue structures of the upper abdomen. RAD/Ribs Uni Min 3V w/PA Chest IMPRESSION: RIBS: Normal x-ray examination of the ribs. CHEST: Normal x-ray examination of the chest. Electronically Signed: Chencho Templeton MD at 16:00 EDT Tel [phone], Service support , CC: Rodger Rock MD; Jameson Herrera MD Enrobing Machine Feeder: Signed PROGRESS Observed: 07/13/2018 Status: COMPLETED Source: WAVERLY 2:37 PM [facility] REPOSITORY O ID: [id number] Author: Jameson Herrera Service: (none) Author Type: Physician Type: Progress Notes Filed: 07/13/2018 3:25 PM Note Text: Patient presents with: Numbness: bilateral hands HPI: Patient presents today for office visit for acute visit. Nursing Notes: Radha Mejía Ma 07/13/2018 2:12 PM Signed PAIN: Pt c/o pain and tingling in hands since yesterday morning. Left worse than right. Constant. Rates pain a 10. Tried ibuprofen. BRUISING: Pt woke up with bruising on the right side of his abdomen the same day the pain in his hands started. It is the same side of his hernia, per patient. He woke up with bruising over the area of hernia and seroma. Does not recall injury. No bleeding or bruising issues elsewhere. No urinary or bowel issues. abd pain is less. Ct showed hernia had a small loop of bowel. Was referred back to Dr. Brasher. He felt he was a high surgical risk. Dr. Rocha had seen him and did not want to operated on him as well. Discussed weight loss. Offered to have him see general surgeon up at main campus. Woke up Friday Morning with both hands painful and tingling. No neck pain. No injury. No redness or warmth. Did go back to work. Worse over the thumb side. No redness or warmth. Shaking his hands make his tingling worse. Initially felt like they went to sleep. Is left handed. Left greater than right. Worse depending on the way he lays it on it. Started up again when he went back to work. MEDICATIONS: Current Outpatient Prescriptions: lisinopril (PRINIVIL) 10 mg tablet Take 1 tablet by mouth once daily. gabapentin (NEURONTIN) 600 mg tablet Take 1 tablet by mouth three times daily for 90 days. hydrOXYzine HCl (ATARAX) 25 mg tablet sertraline (ZOLOFT) 50 mg tablet ketorolac (TORADOL) 10 mg tablet Take 1 tablet by mouth every 6 hours as needed. docusate sodium (COLACE) 100 mg capsule Take 1 capsule by mouth twice daily as needed. (Patient not taking: Reported on 04/06/2018 ) No current facility-administered medications for this visit. ALLERGIES: ALLERGIES Allergen Reactions - Hydrocortisone Rash topical - Tramadol GI Upset PAST MEDICAL HISTORY Diagnosis Date - Hernia, abdominal - Hypertension - Morbid obesity (HCC) - Opioid use disorder, mild, abuse (HCC) see below - Substance abuse (HCC) cocaine and cannabis per counseling center notes, seeing counseling center PAST SURGICAL HISTORY Procedure Laterality Date - PAST SURGICAL HISTORY OF 03/09/2018 part of right kidney removed - REPAIR UMBILICAL IONA,5+Y/O,REDUC 3-7-13 FAMILY HISTORY Problem Relation Age of Onset - Hypertension Father - Arthritis Father - Diabetes Father - other (obesity) Father - Hypertension Paternal Grandmother - Heart Paternal Grandmother - Diabetes Paternal Grandmother - other (renal failure) Paternal Grandmother - Hypertension Paternal Grandfather - Heart Paternal Grandfather - Diabetes Paternal Grandfather Social History Marital status: Spouse name: Years of education: Number of children: 2 Social History Main Topics Smoking status: Never Smoker Smokeless tobacco: Never Used Alcohol use: No Drug use: No Other Topics Concern Caffeine Concern Yes Comment:moderate use 2+ 20z bottles of soda Reviewed current medications, allergies, past medical history, surgical history, family history and social history today. REVIEW OF SYSTEMS All other reviewed and negative other than HPI. VITALS: BP 150/88 Pulse 72 Resp 20 Wt (!) 180.5 kg (398 lb) BMI 58.77 kg/m? Last 4 Encounter Wt Readings: Date: Wt: 07/13/2018 180.5 kg (398 lb) 07/06/2018 181.9 kg (401 lb) 06/02/2018 180.5 kg (398 lb) 05/23/2018 168.7 kg (372 lb) PHYSICAL EXAMINATION: General appearance: Well appearing, alert, in no acute distress, well-hydrated, well nourished. Skin: Skin color, texture, turgor normal, no suspicious rashes or lesions Head: Normocephalic, no masses, lesions, tenderness or abnormalities Lungs: Lungs clear to auscultation. No wheezing, rhonchi, rales Heart: RRR without murmur, gallop, or rubs. No ectopy Abdomen: obese. Has a an area of bruising below the hernia site. The fullness is much less than last week. I wonder if the residual seroma has drained and he is much less tender. Extremities: No deformities, edema, skin discoloration, clubbing or cyanosis. Good capillary refill. Musculoskeletal: No joint swelling, deformity, or tenderness Peripheral pulses: Normal Normal movement and of the hands. Has decreased subjective sensation to monofilament, however, withdraws to painful stimuli. Normal color and normal dtrs ? phalen's ASSESSMENT/PLAN: 1. Ventral hernia without obstruction or gangrene - ICD9: 553.20, ICD10: K43.9 (primary diagnosis) - discussed weight loss prior to anyone operating on the hernia. Red flags for re-assessment reviewed with patient in detail. - to me it is much less prominent - CONSULT TO GENERAL SURGERY 2. Ecchymosis - ICD9: 459.89, ICD10: R58 - call if worsens. 3. Bilateral carpal tunnel syndrome - ICD9: 354.0, ICD10: G56.03 - Discussed risks and benefits of new medication with the patient. Advised them to call if any side effects or questions. - EMG(NEURO/NI) - PREDNISONE 20 MG TABLET - COCK-UP WRIST SPLINT 4. Morbid obesity (HCC) - ICD9: 278.01, ICD10: E66.01 - CONSULT TO GENERAL SURGERY Jameson Herrera MD . CNOV Observed: 07/13/2018 Status: COMPLETED Source: WAVERLY 2:00 PM [facility] REPOSITORY [facility] JORGE ROQUE ([id number]) 1975 M Date Time Provider Department 07/13/18 2:00 PM [facility] During your visit today, we recorded the following information about you: Pulse Respiration Blood pressure Weight 72/minute 20/minute 142/88 180.5 kg Radha Mejía Ma 07/13/2018 2:12 PM Signed PAIN: Pt c/o pain and tingling in hands since yesterday morning. Left worse than right. Constant. Rates pain a 10. Tried ibuprofen. BRUISING: Pt woke up with bruising on the right side of his abdomen the same day the pain in his hands started. It is the same side of his hernia, per patient. Jameson Herrera MD 07/13/2018 3:25 PM Signed Patient presents with: Numbness: bilateral hands HPI: Patient presents today for office visit for acute visit. Nursing Notes: Radha Mejía Ma 07/13/2018 2:12 PM Signed PAIN: Pt c/o pain and tingling in hands since yesterday morning. Left worse than right. Constant. Rates pain a 10. Tried ibuprofen. BRUISING: Pt woke up with bruising on the right side of his abdomen the same day the pain in his hands started. It is the same side of his hernia, per patient. He woke up with bruising over the area of hernia and seroma. Does not recall injury. No bleeding or bruising issues elsewhere. No urinary or bowel issues. abd pain is less. Ct showed hernia had a small loop of bowel. Was referred back to Dr. Brasher. He felt he was a high surgical risk. Dr. Rocha had seen him and did not want to operated on him as well. Discussed weight loss. Offered to have him see general surgeon up at [facility] [place]. Woke up Friday Morning with both hands painful and tingling. No neck pain. No injury. No redness or warmth. Did go back to work. Worse over the thumb side. No redness or warmth. Shaking his hands make his tingling worse. Initially felt like they went to sleep. Is left handed. Left greater than right. Worse depending on the way he lays it on it. Started up again when he went back to work. MEDICATIONS: Current Outpatient Prescriptions: lisinopril (PRINIVIL) 10 mg tablet Take 1 tablet by mouth once daily. gabapentin (NEURONTIN) 600 mg tablet Take 1 tablet by mouth three times daily for 90 days. hydrOXYzine HCl (ATARAX) 25 mg tablet sertraline (ZOLOFT) 50 mg tablet ketorolac (TORADOL) 10 mg tablet Take 1 tablet by mouth every 6 hours as needed. docusate sodium (COLACE) 100 mg capsule Take 1 capsule by mouth twice daily as needed. (Patient not taking: Reported on 04/06/2018 ) No current facility-administered medications for this visit. ALLERGIES: ALLERGIES Allergen Reactions - Hydrocortisone Rash topical - Tramadol GI Upset PAST MEDICAL HISTORY Diagnosis Date - Hernia, abdominal - Hypertension - Morbid obesity (HCC) - Opioid use disorder, mild, abuse (HCC) see below - Substance abuse (HCC) cocaine and cannabis per counseling center notes, seeing counseling center PAST SURGICAL HISTORY Procedure Laterality Date - PAST SURGICAL HISTORY OF 03/09/2018 part of right kidney removed - REPAIR UMBILICAL IONA,5+Y/O,REDUC 3-7-13 FAMILY HISTORY Problem Relation Age of Onset - Hypertension Father - Arthritis Father - Diabetes Father - other (obesity) Father - Hypertension Paternal Grandmother - Heart Paternal Grandmother - Diabetes Paternal Grandmother - other (renal failure) Paternal Grandmother - Hypertension Paternal Grandfather - Heart Paternal Grandfather - Diabetes Paternal Grandfather Social History Marital status: Spouse name: Years of education: Number of children: 2 Social History Main Topics Smoking status: Never Smoker Smokeless tobacco: Never Used Alcohol use: No Drug use: No Other Topics Concern Caffeine Concern Yes Comment:moderate use 2+ 20z bottles of soda Reviewed current medications, allergies, past medical history, surgical history, family history and social history today. REVIEW OF SYSTEMS All other reviewed and negative other than HPI. VITALS: BP 150/88 Pulse 72 Resp 20 Wt (!) 180.5 kg (398 lb) BMI 58.77 kg/m? Last 4 Encounter Wt Readings: Date: Wt: 07/13/2018 180.5 kg (398 lb) 07/06/2018 181.9 kg (401 lb) 06/02/2018 180.5 kg (398 lb) 05/23/2018 168.7 kg (372 lb) PHYSICAL EXAMINATION: General appearance: Well appearing, alert, in no acute distress, well-hydrated, well nourished. Skin: Skin color, texture, turgor normal, no suspicious rashes or lesions Head: Normocephalic, no masses, lesions, tenderness or abnormalities Lungs: Lungs clear to auscultation. No wheezing, rhonchi, rales Heart: RRR without murmur, gallop, or rubs. No ectopy Abdomen: obese. Has a an area of bruising below the hernia site. The fullness is much less than last week. I wonder if the residual seroma has drained and he is much less tender. Extremities: No deformities, edema, skin discoloration, clubbing or cyanosis. Good capillary refill. Musculoskeletal: No joint swelling, deformity, or tenderness Peripheral pulses: Normal Normal movement and of the hands. Has decreased subjective sensation to monofilament, however, withdraws to painful stimuli. Normal color and normal dtrs ? driss's ASSESSMENT/PLAN: 1. Ventral hernia without obstruction or gangrene - ICD9: 553.20, ICD10: K43.9 (primary diagnosis) - discussed weight loss prior to anyone operating on the hernia. Red flags for re-assessment reviewed with patient in detail. - to me it is much less prominent - CONSULT TO GENERAL SURGERY 2. Ecchymosis - ICD9: 459.89, ICD10: R58 - call if worsens. 3. Bilateral carpal tunnel syndrome - ICD9: 354.0, ICD10: G56.03 - Discussed risks and benefits of new medication with the patient. Advised them to call if any side effects or questions. - EMG(NEURO/NI) - PREDNISONE 20 MG TABLET - COCK-UP WRIST SPLINT 4. Morbid obesity (HCC) - ICD9: 278.01, ICD10: E66.01 - CONSULT TO GENERAL SURGERY Jameson Herrera MD . Referring Provider: SELF [200] Allergies As of Date: 07/13/2018 Noted Allergy Reaction HYDROCORTISONE 04/22/2018 2 - Rash Comments: topical Can take prednisone TRAMADOL 04/22/2018 8 - GI Upset Date Reviewed: 07/13/2018 Reviewed by: Radha Mejía Ma - Fully Assessed Reason for Visit: Numbness [75] Cmt: bilateral hands Primary Visit Diagnosis:Ventral hernia without obstruction or gangrene [K43.9] Other Visit Diagnoses:Ecchymosis [R58] Bilateral carpal tunnel syndrome [G56.03] Morbid obesity (HCC) [E66.01] Order(s):CONSULT TO GENERAL SURGERY [9011] Order #: [id number]: 1 EMG(NEURO/NI) [20110215] Order #: [id number]: 1 FUTURE predniSONE (DELTASONE) 20 mg tabletTake 1 tablet by mouth once daily for 5 days. Take daily with food.Disp: 5 tabletRfl: 0 COCK-UP WRIST SPLINT [[id number]] Order #: [id number]: 2 Prescriptions as of 07/13/2018 Sig: LISINOPRIL 10 MG TABLET Take 1 tablet by mouth once d* GABAPENTIN 600 MG TABLET Take 1 tablet by mouth three * HYDROXYZINE HCL 25 MG TABLET SERTRALINE 50 MG TABLET PREDNISONE 20 MG TABLET Take 1 tablet by mouth once d* KETOROLAC 10 MG TABLET Take 1 tablet by mouth every * DOCUSATE SODIUM 100 MG CAPSULE Take 1 capsule by mouth twice* Patient not taking: Reported on 04/06/2018 Problem List As Of Date 07/13/2018 Noted Resolved Hypertension [I10] INVALID FOR* Left knee pain [M25.562] INVALID FOR* Patellar tendinitis [M76.50] INVALID FOR* Morbid obesity [E66.01] INVALID FOR* Right renal mass [N28.89] INVALID FOR*07/06/2018 Obesity, Class III, BMI >= 40 E66.01 [E66.01] INVALID FOR* Renal mass, right [N28.89] INVALID FOR*07/06/2018 Malignant neoplasm of right kidney, except bean*INVALID FOR* Visit Notes: >> Radha Mejía Ma Mon Jul 13, 2018 2:10 PM Status: Signed PAIN: Pt c/o pain and tingling in hands since yesterday morning. Left worse than right. Constant. Rates pain a 10. Tried ibuprofen. BRUISING: Pt woke up with bruising on the right side of his abdomen the same day the pain in his hands started. It is the same side of his hernia, per patient. Prescriptions ordered this encounter Disp Refills Start End PREDNISONE 20 MG TABLET 5 ta* 0 07/13/2018 07/18/2018 Route: ORAL Sig: Take 1 tablet by mouth once daily for 5 days. Take daily with food. Follow-up and Disposition History Recorded Letter Text Jameson Herrera MD [address], [place] [address] 07/13/2018 Jorge Whittaker Mya [address] [place] [id number] TO WHOM IT MAY CONCERN: This is to certify that Mr. Jorge Roque has been under my care for illness and was seen and unable to work on 07/13/18 Sincerely yours, Jameson Herrera MD Encounter Status:Closed by JAMESON HERRERA MD on 07/13/18 EMERGENCY DEPARTMENT Observed: 07/07/2018 Status: F Source: [place] SUMMARY 12:27 AM [facility] REPOSITORY [facility] Medical Records Department [address] [place] [address] Emergency Department Summary 07/06/18 1516 MR#: [id number] Acct: [id number] Name: JORGE ROQUE Rep #: [id number] : 1975 43 From: Meghan Martínez MD PCP: Jameson Herrera MD Status: DEP ER - ER Visit Summary Date of Service: 07/06/18 Chief Complaint: Abdominal pain History of Present Illness: The patient is a 43 M who had a partial nephrectomy in February secondary to renal cancer. Patient states he has had right- sided abdominal pain since that surgery. His PCP feels the hernia is larger and request a stat CT scan. Patient denies fever. He denies any change in bowel habits. Physical Examination: Blood pressure is 162/103, otherwise vitals normal. Patient sitting upright in bed no acute distress. Heart is regular rate and rhythm. Lung sounds are clear. Abdomen is soft with mild tenderness in the right side of the abdomen. There is no guarding or rebound. Hypoactive bowel sounds are noted. Test Results: CBC and chemistry studies are unremarkable. LFTs normal. Urinalysis normal. CT abdomen pelvis with contrast shows right lower quadrant anterior abdominal wall hernia containing a short segment of nonobstructed small bowel. Emergency Department Course and Treatment: Patient was given IV fluids. I discussed test results with Dr. Brasher. He will be happy to see the patient in follow-up, the patient is high risk for surgery. Patient is also been seen by Dr. Slater and is encouraged to follow-up with him as well as a second opinion. At this time patient be given a dose of Toradol for pain and will be discharged home. Treatment Plan: [] Disposition: Discharge Impression: Abdominal wall hernia This note was generated with [employer] dictation software. It may contain incorrect words, spelling, and punctuation that were not noted in review of the chart prior to signing ED Disposition - Plan for ED Patient: Chief Complaint: Abd Pain Referrals: Jameson Herrera MD [Primary Care Provider] - What to do if you have Problems For any increased pain, shortness of breath, bleeding, nausea or vomiting, chest pain, or any unexpected problems, contact your Primary Care Provider. Call [facility] ([phone]) or report to the closest Emergency Room. Call 911 if necessary. 07/07/18 0027 <Electronically signed by Meghan Martínez MD> Date Meghan Martínez MD Cosigner Signature (If Indicated): Date CC: Jameson Herrera MD DISCHARGE INSTRUCTION Observed: 07/06/2018 Status: F Source: JESUS 5:33 PM [facility] REPOSITORY [facility] Medical Records Department [address] [place] [address] Discharge Instruction 07/06/18 173 MR#: [id number] Acct: [id number] Name: JORGE ROQUE Rep #: [id number] : 1975 43 From: Meghan Martínez MD PCP: Jameson Herrera MD Status: REG ER ED Disposition - Plan for ED Patient: Disposition: Home or Assisted Living Chief Complaint: Abd Pain Instructions: What Is a Hernia? Referrals: Jameson Herrera MD [Primary Care Provider] - Rodger Brasher MD [STAFF PHYSICIAN] - Fartun Rocha MD [STAFF PHYSICIAN] - What to do if you have Problems For any increased pain, shortness of breath, bleeding, nausea or vomiting, chest pain, or any unexpected problems, contact your Primary Care Provider. Call [facility] ([phone]) or report to the closest Emergency Room. Call 911 if necessary. 07/06/181732 <Electronically signed by Meghan Martínez MD> Date Meghan Martínez MD Cosigner Signature (If Indicated): Date CC: Jameson Herrera MD URINALYSIS, COMPLETE Collected: 07/06/2018 Status: F Source: JESUS 4:00 PM [facility] REPOSITORY Order Comment: Has pt arrived? Y How was Urine Obtained? CLEAN CATCH TYPE CODE TESTS RESULT OUT OF RANGE REFERENCE UNITS LAB L400.3000 Yellow COLOR Normal Yellow LAB L400.3050 Clear Normal CLARITY Clear LAB L400.3200 Normal mg/dl Normal GLUCOSE, UR Normal LAB L400.3300 Negative mg/dL Normal BILIRUBIN URINE Negative LAB L400.3400 Negative mg/dl Normal KETONE UR Negative LAB L400.3465 1.002-1.030 Normal SP.GR. DIPSTX 1.010 LAB L400.3550 5.0 - 8.0 pH UR Normal 7.0 LAB L400.3600 Negative mg/dl PROT Normal DIPSTX Negative LAB L400.3700 Normal mg/dl Normal UROBILI Normal LAB L400.3750 Negative Normal NITRITE UR Negative LAB L400.3780 Negative /ul Normal OCCULT BLOOD-UR Negative LAB L400.3800 Negative /ul High LEUK ESTERASE 100 LAB L400.4050 0-5 /hpf WBC Normal 0-5 SEEN LAB L400.4100 0-5 /hpf 0 Normal RBC-UA SEEN LAB L400.4150 0-5 /hpf SQUAM Normal EPI 0-5 SEEN LAB L400.4300 None Seen /hpf 0 Normal BACTERIA SEEN LAB L400.4350 <or=2+ /hpf 0 Normal MUCUS, URINE SEEN Performed By: #### L400.0001 #### [facility] [address] [place], [address] CBC W/DIFF, AUTOMATED Collected: 07/06/2018 Status: F Source: MOODY 3:30 PM [facility] REPOSITORY TYPE CODE TESTS RESULT OUT OF RANGE REFERENCE UNITS LAB L100.1000 4.4-11.0 K/mm3 Normal WBC 6.3 LAB L100.1200 4.6-6.2 M/mm3 Normal RBC 4.98 LAB L100.1300 13.0-16.5 g/dl Normal HGB 13.3 LAB L100.1400 40-54 % Normal HCT 43.0 LAB L100.1500 80-94 fL Normal MCV 86.3 LAB L100.1600 27.0-32.0 pg Low MCH 26.7 LAB L100.1700 32-36 g/gl Low MCHC 30.9 LAB L100.1810 11.6-14.6 % Normal RDW CV 13.9 LAB L100.1820 35.1-43.9 fl Normal RDW SD 43.4 LAB L100.1900 150-450 K/mm3 Normal PLT 186 LAB L100.2000 6.2-12.0 fl Normal MPV 10.7 LAB L100.2100 47-70 % Normal NEUT% 65.8 LAB L100.2200 19-41 % Normal LY% 23.8 LAB L100.2300 0-10 % Normal MONO% 6.2 LAB L100.2400 0-5 % Normal EO% 4.0 LAB L100.2500 0-1 % Normal BASO% 0.2 LAB L100.2550 0.0-0.9 % Normal IM GRAN % 0.000 Result Comment: IG% - Immature Granulocytes (promyelocytes, myelocytes and metamyelocytes) > 1% indicates that a LEFT SHIFT is Present. LAB L100.2620 2.0-7.7 X10 3/uL Normal Absolute Neut 4.2 LAB L100.2720 0.83-4.51 X10 3/ul Normal Absolute Lymph 1.50 Performed By: #### L100.0100 #### [facility] [address] [place], [place], [address] BASIC METABOLIC Collected: 07/06/2018 Status: F Source: MOODY PROFILE (BMP) 3:30 PM [facility] REPOSITORY TYPE CODE TESTS RESULT OUT OF RANGE REFERENCE UNITS LAB L501.0100 74-106 mg/dL Normal GLU 78 Result Comment: Please note revised GLUCOSE reference range effective 2017. LAB L501.1000 7-18 mg/dL Normal BUN 9 LAB L501.1100 0.70-1.30 mg/dL Normal CREAT,SERUM 0.86 Result Comment: The validity of the calculated GFR AND GFRAA in patients over 70 years has not been determined. Clinical correlation is essential. LAB L501.1110 >60 mL/min Normal EST GFR 104 Result Comment: Non- GFR Calc LAB L501.1115 >60 mL/min Normal EST GFR - AA 126 Result Comment: GFR Calc LAB L501.1255 ml/min Normal Estimated CRCL 107.15 LAB L501.1300 10-20 RATIO BUN/CRE Normal 10.5 LAB L501.2200 8.5-10 mg/dL Low .1 CA 8.2 LAB L501.5300 136-14 mmol/L 5 NA Normal 138 LAB L501.5600 3.5-5. mmol/L 1 K Normal 4.5 Result Comment: Moderate Hemolysis, Result may be falsely increased. LAB L501.5900 98-107 mmol/L Normal CL 104 LAB L501.6100 21.0-32.0 mmol/L Normal CO2 31.0 LAB L501.6200 5-15 Low 3 GAP Performed By: #### L500.2500, L500.3400 #### [facility] [address] [facility] [place], [address] LIVER PROFILE Collected: 07/06/2018 Status: F Source: MOODY 3:30 PM [facility] REPOSITORY TYPE CODE TESTS RESULT OUT OF RANGE REFERENCE UNITS LAB L501.1500 6.4-8.2 g/dL Normal T PROT 7.0 LAB L501.1800 3.2-5.0 g/dL Normal ALB 3.4 LAB L501.1950 2.2-4.2 g/dL Normal GLOB 3.6 LAB L501.4100 15-37 U/L Normal AST 22 Result Comment: Moderate Hemolysis, Result may be falsely increased. LAB L501.4305 45-117 U/L Normal ALK P 90 LAB L501.4405 16-61 U/L Normal ALT 23 LAB L501.4600 0.20-1.00 mg/dL Normal T BILI 0.50 LAB L501.4700 0.00-0.30 mg/dL Normal D BILI 0.09 Performed By: #### L500.2500, L500.3400 #### [facility] [address] [facility] [place], [address] ABDOMEN/PELVIS WITH Observed: 07/06/2018 Status: F Source: MOODY CONTRAST 3:16 PM [facility] REPOSITORY [facility] Imaging Services [address] [place] [address] Abdomen/Pelvis WITH Contrast MR#: [id number] Acct: [id number] Name: JORGE ROQUE Remedios Rep #: [id number] : 1975 M 43 From: Fantasma Spann MD PCP: Jameson Herrera MD Status: REG ER Study: Abdomen/Pelvis WITH Contrast Date of Exam: 07/06/18 Exam# [id number] Ordering Dr: Meghan Martínez MD STUDY: CT ABDOMEN AND PELVIS WITH CONTRAST REASON FOR EXAM: Male, 43 years old. Right-sided hernia RADIATION DOSAGE (If Supplied By Facility): CTDIvol = ( 31.43 ) mGy, DLP = ( 1843.36 ) mGycm TECHNIQUE: Transaxial images were obtained from the dome of the diaphragm to the symphysis pubis with oral contrast. 100 ml of Isovue 300 contrast was administered. Sagittal and coronal images were reconstructed. Individualized dose optimization techniques were used for this CT. COMPARISON: 05/20/2018 FINDINGS: The visualized lung bases are clear. The visualized portions of the heart and pericardium are within normal limits. There are no calcified gallstones present. The liver is low in density, consistent with fatty infiltration. The spleen is enlarged, measuring 19.2 cm in anterior posterior dimension. This is stable when compared with the prior exam. The pancreas is within normal limits. The adrenal glands are within normal limits. There are no renal or ureteral stones. There is no hydronephrosis. There are stable postsurgical changes in the right kidney. There are no focal renal lesions. Normal visualized stomach. There is no bowel obstruction or inflammation. The appendix is visualized and appears normal. There is a right lower quadrant anterior abdominal wall hernia which contains a short segment of nonobstructed small bowel. The aorta is normal in caliber. There is no abdominal or pelvic free air, free fluid, fluid collection or lymphadenopathy. There are no destructive osseous lesions. CT/Abdomen/Pelvis WITH Contrast IMPRESSION: Right lower quadrant anterior abdominal wall hernia which contains a short segment of nonobstructed small bowel. No bowel obstruction or inflammation. Fatty liver. Stable splenomegaly. Electronically Signed: Fantasma Maria Ines, at 17:13 EDT Tel , Service support , CC: Meghan Martínez MD; Jameson Herrera MD Enrobing Machine Feeder: Signed PROGRESS Observed: 07/06/2018 Status: COMPLETED Source: [place] 2:24 PM [facility] [place] REPOSITORY HNO ID: [id number] Author: Jameson Herrera Service: (none) Author Type: Physician Type: Progress Notes Filed: 07/06/2018 2:41 PM Note Text: Patient presents with: Abdominal Pain: with nausea HPI: Patient presents today for office visit for follow up. Nursing Notes: Margaret Vela DIRECTOR STAFFING 07/06/2018 1:54 PM Signed Went back to work last week. Having epigastric pain describes as pressure. This is different then his usual pain that he has. Did have one episode of vomiting this morning. Feels nausea now. Blood pressure was up at last ER visit. Concerned about needing to be back on medication. 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 Has been having some occasional nausea. Noted some pain in the center of the abdomen. No fever or chills. Had a small hernia and seroma postoperatively. No changes in the bowels. No black or bloody stools. No diarrhea or new constipation. No dysuria or hematuria. Has seen several surgeons for the hernia and he wanted him to wait until he did anything. The last ct scan he had showed resolving seroma and a small 2.5 cm hernia. He has not followed with Dr. Brasher. Was on lisinopril in the past. No chest pain or shortness of breath. No edema. Did have a fall recently MEDICATIONS: Current Outpatient Prescriptions: gabapentin (NEURONTIN) 600 mg tablet Take 1 tablet by mouth three times daily for 90 days. hydrOXYzine HCl (ATARAX) 25 mg tablet sertraline (ZOLOFT) 50 mg tablet iv contrast (radiology procedure) CT ABD W -Inject, intravenously, once for 1 dose.No IV access, insert saline lock prior to the beginning of sedation, infusion, injection of imaging exam. Discontinue saline lock post exam. If Pt. has a central line or IVAD, may access for administration according to line specific nursing protocol. Once exam is complete flush line and de-access according to line specific nursing protocol in the CT contrast administration guidelines link. (Patient not taking: Reported on 04/06/2018 ) ketorolac (TORADOL) 10 mg tablet Take 1 tablet by mouth every 6 hours as needed. docusate sodium (COLACE) 100 mg capsule Take 1 capsule by mouth twice daily as needed. (Patient not taking: Reported on 04/06/2018 ) No current facility-administered medications for this visit. ALLERGIES: ALLERGIES Allergen Reactions - Hydrocortisone Rash topical - Tramadol GI Upset PAST MEDICAL HISTORY Diagnosis Date - Hernia, abdominal - Hypertension - Morbid obesity (HCC) - Opioid use disorder, mild, abuse (HCC) see below - Substance abuse (HCC) cocaine and cannabis per counseling center notes, seeing counseling center PAST SURGICAL HISTORY Procedure Laterality Date - PAST SURGICAL HISTORY OF 03/09/2018 part of right kidney removed - REPAIR UMBILICAL IONA,5+Y/O,REDUC 3-7-13 FAMILY HISTORY Problem Relation Age of Onset - Hypertension Father - Arthritis Father - Diabetes Father - other (obesity) Father - Hypertension Paternal Grandmother - Heart Paternal Grandmother - Diabetes Paternal Grandmother - other (renal failure) Paternal Grandmother - Hypertension Paternal Grandfather - Heart Paternal Grandfather - Diabetes Paternal Grandfather Social History Marital status: Spouse name: Years of education: Number of children: 2 Social History Main Topics Smoking status: Never Smoker Smokeless tobacco: Never Used Alcohol use: No Drug use: No Other Topics Concern Caffeine Concern Yes Comment:moderate use 2+ 20z bottles of soda Reviewed current medications, allergies, past medical history, surgical history, family history and social history today. REVIEW OF SYSTEMS All other reviewed and negative other than HPI. VITALS: BP 132/102 Pulse 60 Resp 18 Wt (!) 181.9 kg (401 lb) BMI 59.22 kg/m? Last 4 Encounter Wt Readings: Date: Wt: 07/06/2018 181.9 kg (401 lb) 06/02/2018 180.5 kg (398 lb) 05/23/2018 168.7 kg (372 lb) 04/22/2018 176 kg (388 lb) PHYSICAL EXAMINATION: General appearance: Well appearing, alert, in no acute distress, well-hydrated, well nourished. Skin: Skin color, texture, turgor normal, no suspicious rashes or lesions Head: Normocephalic, no masses, lesions, tenderness or abnormalities Lungs: Lungs clear to auscultation. No wheezing, rhonchi, rales Heart: RRR without murmur, gallop, or rubs. No ectopy Abdomen: soft. Increased tenderness in several areas of the abdomen. Has a firm area on the right side of the abdomen and he feels it is more painful than it has been. ASSESSMENT/PLAN: 1. Right lower quadrant abdominal pain - ICD9: 789.03, ICD10: R10.31 (primary diagnosis) - given his hernia, seroma and recent surgery, he may need ct scan etc. I know I cannot get a stat ct today, will go to ER. 2. Morbid obesity (HCC) - ICD9: 278.01, ICD10: E66.01 3. Essential hypertension - ICD9: 401.9, ICD10: I10 - suboptimal control - Resume lisinopril. rto In two weeks. 4. Malignant neoplasm of right kidney, except renal pelvis (HCC) - ICD9: 189.0, ICD10: C64.1 - follow with urology. Jameson Herrera MD CNOV Observed: 07/06/2018 Status: COMPLETED Source: [place] 12:40 PM [facility] REPOSITORY Office Visit (FAMPWS) JORGE ROQUE ([id number]) 1975 M Date Time Provider Department 07/06/18 12:40 PM [facility] During your visit today, we recorded the following information about you: Pulse Respiration Blood pressure Weight 60/minute 18/minute 132/102 181.9 kg Margaret Mirian ROWLAND 07/06/2018 1:54 PM Signed Went back to work last week. Having epigastric pain describes as pressure. This is different then his usual pain that he has. Did have one episode of vomiting this morning. Feels nausea now. Blood pressure was up at last ER visit. Concerned about needing to be back on medication. Jameson Herrera MD 07/06/2018 2:41 PM Signed Patient presents with: Abdominal Pain: with nausea HPI: Patient presents today for office visit for follow up. Nursing Notes: Margaretmadhu Westbrookshalini ROWLAND 07/06/2018 1:54 PM Signed Went back to work last week. Having epigastric pain describes as pressure. This is different then his usual pain that he has. Did have one episode of vomiting this morning. Feels nausea now. Blood pressure was up at last ER visit. Concerned about needing to be back on medication. 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 Has been having some occasional nausea. Noted some pain in the center of the abdomen. No fever or chills. Had a small hernia and seroma postoperatively. No changes in the bowels. No black or bloody stools. No diarrhea or new constipation. No dysuria or hematuria. Has seen several surgeons for the hernia and he wanted him to wait until he did anything. The last ct scan he had showed resolving seroma and a small 2.5 cm hernia. He has not followed with Dr. Brasher. Was on lisinopril in the past. No chest pain or shortness of breath. No edema. Did have a fall recently MEDICATIONS: Current Outpatient Prescriptions: gabapentin (NEURONTIN) 600 mg tablet Take 1 tablet by mouth three times daily for 90 days. hydrOXYzine HCl (ATARAX) 25 mg tablet sertraline (ZOLOFT) 50 mg tablet iv contrast (radiology procedure) CT ABD W -Inject, intravenously, once for 1 dose.No IV access, insert saline lock prior to the beginning of sedation, infusion, injection of imaging exam. Discontinue saline lock post exam. If Pt. has a central line or IVAD, may access for administration according to line specific nursing protocol. Once exam is complete flush line and de-access according to line specific nursing protocol in the CT contrast administration guidelines link. (Patient not taking: Reported on 04/06/2018 ) ketorolac (TORADOL) 10 mg tablet Take 1 tablet by mouth every 6 hours as needed. docusate sodium (COLACE) 100 mg capsule Take 1 capsule by mouth twice daily as needed. (Patient not taking: Reported on 04/06/2018 ) No current facility-administered medications for this visit. ALLERGIES: ALLERGIES Allergen Reactions - Hydrocortisone Rash topical - Tramadol GI Upset PAST MEDICAL HISTORY Diagnosis Date - Hernia, abdominal - Hypertension - Morbid obesity (HCC) - Opioid use disorder, mild, abuse (HCC) see below - Substance abuse (HCC) cocaine and cannabis per counseling center notes, seeing counseling center PAST SURGICAL HISTORY Procedure Laterality Date - PAST SURGICAL HISTORY OF 03/09/2018 part of right kidney removed - REPAIR UMBILICAL IONA,5+Y/O,REDUC 3-7-13 FAMILY HISTORY Problem Relation Age of Onset - Hypertension Father - Arthritis Father - Diabetes Father - other (obesity) Father - Hypertension Paternal Grandmother - Heart Paternal Grandmother - Diabetes Paternal Grandmother - other (renal failure) Paternal Grandmother - Hypertension Paternal Grandfather - Heart Paternal Grandfather - Diabetes Paternal Grandfather Social History Marital status: Spouse name: Years of education: Number of children: 2 Social History Main Topics Smoking status: Never Smoker Smokeless tobacco: Never Used Alcohol use: No Drug use: No Other Topics Concern Caffeine Concern Yes Comment:moderate use 2+ 20z bottles of soda Reviewed current medications, allergies, past medical history, surgical history, family history and social history today. REVIEW OF SYSTEMS All other reviewed and negative other than HPI. VITALS: BP 132/102 Pulse 60 Resp 18 Wt (!) 181.9 kg (401 lb) BMI 59.22 kg/m? Last 4 Encounter Wt Readings: Date: Wt: 07/06/2018 181.9 kg (401 lb) 06/02/2018 180.5 kg (398 lb) 05/23/2018 168.7 kg (372 lb) 04/22/2018 176 kg (388 lb) PHYSICAL EXAMINATION: General appearance: Well appearing, alert, in no acute distress, well-hydrated, well nourished. Skin: Skin color, texture, turgor normal, no suspicious rashes or lesions Head: Normocephalic, no masses, lesions, tenderness or abnormalities Lungs: Lungs clear to auscultation. No wheezing, rhonchi, rales Heart: RRR without murmur, gallop, or rubs. No ectopy Abdomen: soft. Increased tenderness in several areas of the abdomen. Has a firm area on the right side of the abdomen and he feels it is more painful than it has been. ASSESSMENT/PLAN: 1. Right lower quadrant abdominal pain - ICD9: 789.03, ICD10: R10.31 (primary diagnosis) - given his hernia, seroma and recent surgery, he may need ct scan etc. I know I cannot get a stat ct today, will go to ER. 2. Morbid obesity (HCC) - ICD9: 278.01, ICD10: E66.01 3. Essential hypertension - ICD9: 401.9, ICD10: I10 - suboptimal control - Resume lisinopril. rto In two weeks. 4. Malignant neoplasm of right kidney, except renal pelvis (HCC) - ICD9: 189.0, ICD10: C64.1 - follow with urology. Jameson Herrera MD Referring Provider: SELF [200] Allergies As of Date: 07/06/2018 Noted Allergy Reaction HYDROCORTISONE 04/22/2018 2 - Rash Comments: topical TRAMADOL 04/22/2018 8 - GI Upset Date Reviewed: 07/06/2018 Reviewed by: Margaret Vela LPN - Fully Assessed Reason for Visit: Abdominal Pain [1] Cmt: with nausea Reason For Visit History Recorded Primary Visit Diagnosis:Right lower quadrant abdominal pain [R10.31] Other Visit Diagnoses:Morbid obesity (HCC) [E66.01] Essential hypertension [I10] Malignant neoplasm of right kidney, except renal pelvis (HCC) [C64.1] Order(s):lisinopril (PRINIVIL) 10 mg tabletTake 1 tablet by mouth once daily.Disp: 30 tabletRfl: 5 Prescriptions as of 07/06/2018 Sig: GABAPENTIN 600 MG TABLET Take 1 tablet by mouth three * HYDROXYZINE HCL 25 MG TABLET SERTRALINE 50 MG TABLET LISINOPRIL 10 MG TABLET Take 1 tablet by mouth once d* KETOROLAC 10 MG TABLET Take 1 tablet by mouth every * DOCUSATE SODIUM 100 MG CAPSULE Take 1 capsule by mouth twice* Patient not taking: Reported on 04/06/2018 Problem List As Of Date 07/06/2018 Noted Resolved Hypertension [I10] INVALID FOR* Left knee pain [M25.562] INVALID FOR* Patellar tendinitis [M76.50] INVALID FOR* Morbid obesity [E66.01] INVALID FOR* Right renal mass [N28.89] INVALID FOR*07/06/2018 Obesity, Class III, BMI >= 40 E66.01 [E66.01] INVALID FOR* Renal mass, right [N28.89] INVALID FOR*07/06/2018 Malignant neoplasm of right kidney, except bean*INVALID FOR* Visit Notes: >> Margaret Vela LPN Mon Jul 06, 2018 1:47 PM Status: Signed Went back to work last week. Having epigastric pain describes as pressure. This is different then his usual pain that he has. Did have one episode of vomiting this morning. Feels nausea now. Blood pressure was up at last ER visit. Concerned about needing to be back on medication. Prescriptions ordered this encounter Disp Refills Start End LISINOPRIL 10 MG TABLET 30 t* 5 07/06/2018 Route: ORAL Sig: Take 1 tablet by mouth once daily. Medications Discontinued During This Encounter iv contrast (radiology procedure) 1 Ea* 0 03/19/2018 07/06/2018 Class: In Office Sig: CT ABD W -Inject, intravenously, once for 1 dose.No IV access, insert saline lock prior to the beginning of sedation, infusion, injection of imaging exam. Discontinue saline lock post exam. If Pt. has a central line or IVAD, may access for administration according to line specific nursing protocol. Once exam is complete flush line and de-access according to line specific nursing protocol in the CT contrast administration guidelines link. Patient not taking: Reported on 04/06/2018 Disc: Reason for discontinue is not on file. Disposition: Return in about 2 weeks (around 07/20/2018). Follow-up and Disposition History Recorded Encounter Status:Closed by JAMESON HERRERA MD on 07/06/18 DISCHARGE INSTRUCTION Observed: 06/23/2018 Status: F Source: [place] 7:22 PM [facility] REPOSITORY [facility] Medical Records Department [address] [place] [address] Discharge Instruction 06/23/181919 MR#: [id number] Acct: [id number] Name: MYAJORGE Remedios Rep #: [id number] : 1975 43 From: Dominique Ricci DO PCP: Jameson Herrera MD Status: REG ER ED Disposition - Plan for ED Patient: Chief Complaint: Back Instructions: ED Contusion Back, ED Mechanical Fall, ED Sprain Strain Neck Prescriptions: Hydrocodone/Acetaminophen [[place] 5-325 Tablet] 1 - 2 ea PO 4X/DAY PRN PRN 3 Days #12 tab PRN Reason: Pain Naproxen [Naprosyn] 500 mg PO BID PRN #20 tab Cyclobenzaprine [Flexeril] 10 mg PO TID PRN #20 tab PRN Reason: Muscle Spasm Referrals: Jameson Herrera MD [Primary Care Provider] - 5-7 Days What to do if you have Problems For any increased pain, shortness of breath, bleeding, nausea or vomiting, chest pain, or any unexpected problems, contact your Primary Care Provider. Call [facility] ([phone]) or report to the closest Emergency Room. Call 911 if necessary. 06/23/181921 <Electronically signed by Dominique Ricci DO> Date Dominique Ricci DO Cosigner Signature (If Indicated): Date CC: Jameson Herrera MD EMERGENCY DEPARTMENT Observed: 06/23/2018 Status: F Source: MOODY SUMMARY 7:20 PM [facility] REPOSITORY [facility] Medical Records Department [address] [facility] [place] [address] Emergency Department Summary 06/23/181917 MR#: [id number] Acct: [id number] Name: JORGE ROQUE Rep #: [id number] : 1975 43 From: Dominique Ricci DO PCP: Jameson Herrera MD Status: REG ER - ER Visit Summary Date of Service: 06/23/18 Chief Complaint: [Fall] History of Present Illness: The patient is a 43 M [presents the emergency department after sustaining a fall approximately noon. Patient states that he was climbing into a vehicle and was standing on running boards that he slipped off of and fell when the running boards broke in the hand rest he was grabbing inside the vehicle broke. Patient landed on his back. Patient complains of some pain in his neck specifically the right side of his neck as well as low back and posterior ribs. Patient denies shortness of breath. He denies any weakness in extremities. He denies any pain radiating into the arms or legs. Patient denies striking his head or loss of consciousness.] Physical Examination: [HEENT-PERRLA, EOMI. Cranial nerves II through XII grossly intact. TMs clear. Mucous membranes moist. No adenopathy. Patient has tenderness diffusely over the cervical spine and right cervical paraspinal musculature. Cardiovascular-regular rate and rhythm without murmur or ectopy Lungs-clear to auscultation, chest wall stable without crepitus or subcu emphysema Abdomen-normoactive bowel sounds, soft, nontender, no rebound or rigidity, no peritoneal signs. Back exam-patient has no real tenderness over the thoracic spine. Patient does have tenderness over the lumbar spine diffusely. Patient also has some tenderness over the right posterior ribs without any evidence of ecchymosis or bruising noted. Patient has negative straight leg raises. Deep tendon reflexes are plus 2 out of 4 bilaterally at the patella and Achilles. Patient has normal L5 extension bilaterally. Extremities-intact 4, normal range of motion, normal pulses, atraumatic] Test Results: [X-rays of the cervical spine and lumbar spine obtained showed no fractures. Chest x-ray also was unremarkable.] Emergency Department Course and Treatment: [Patient was given 1 [place] p.o.] Treatment Plan: [Patient given a prescription for [place]e] Disposition: [Discharged home in stable condition] Impression: [Mechanical fall Contusion back Cervical strain] This note was generated with ElementsLocal dictation software. It may contain incorrect words, spelling, and punctuation that were not noted in review of the chart prior to signing ED Disposition - Plan for ED Patient: Chief Complaint: Back Referrals: Jameson Herrera MD [Primary Care Provider] - What to do if you have Problems For any increased pain, shortness of breath, bleeding, nausea or vomiting, chest pain, or any unexpected problems, contact your Primary Care Provider. Call [facility] ([phone]) or report to the closest Emergency Room. Call 911 if necessary. 06/23/18 1920 <Electronically signed by Dominique Ricci DO> Date Dominique Ricci DO Cosigner Signature (If Indicated): Date CC: Jameson Herrera MD CERV SPINE 2 OR 3 Observed: 06/23/2018 Status: F Source: JESUS VIEWS 5:07 PM [facility] REPOSITORY [facility] Imaging Services [address] [place] [address] Cerv Spine 2 or 3 Views MR#: [id number] Acct: [id number] Name: JORGE ROQUE Rep #: [id number] : 1975 M 43 From: Weston Doherty DO PCP: Jameson Herrera MD Status: REG ER Study: Cerv Spine 2 or 3 Views Date of Exam: 06/23/18 Exam# [id number] Ordering Dr: Dominique Ricci DO STUDY: X-RAY - CERVICAL SPINE REASON FOR EXAM: Male, 43 years old. Fall TECHNIQUE: 4 view(s) of the cervical spine were obtained. COMPARISON: None FINDINGS: Normal anterior atlantoaxial articulation. Normal odontoid process. Straightening of the cervical lordosis. Normal vertebral bodies. Minimal spurring at the endplates. Normal disc space heights. The soft tissue structures are unremarkable. RAD/Cerv Spine 2 or 3 Views IMPRESSION: Minimal degenerative changes of the visualized cervical spine. Electronically Signed: Weston Doherty DO at 18:33 EDT Tel [phone], Service support , CC: Dominique Ricci DO; Jameson Herrera MD Enrobing Machine Feeder: Signed LUMBAR SPINE 2 OR 3 Observed: 06/23/2018 Status: F Source: JESUS VIEWS 5:07 PM [facility] REPOSITORY [facility] Imaging Services [address] [place] [address] Lumbar Spine 2 or 3 Views MR#: [id number] Acct: [id number] Name: JORGE ROQUE Rep #: [id number] : 1975 M 43 From: Yohannes Hurt DO PCP: Jameson Herrera MD Status: REG ER Study: Lumbar Spine 2 or 3 Views Date of Exam: 06/23/18 Exam# [id number] Ordering Dr: Dominique Ricci DO STUDY: X-RAY - LUMBAR SPINE REASON FOR EXAM: Male, 43 years old. Fall today. Lower back pain. TECHNIQUE: 3 view(s) of the lumbar spine were obtained. COMPARISON: May 10, 2018 FINDINGS: Normal lumbar lordosis. There is no substantial scoliosis. There is a normal alignment of the vertebrae. There is minimal multilevel spondylosis. Is minimal disc space narrowing at L4-5. There is no evidence of acute fracture or loss of vertebral axial height. There is no significant interval change. The soft tissue structures are unremarkable. RAD/Lumbar Spine 2 or 3 Views IMPRESSION: No acute abnormality or interval change. Electronically Signed: Yohannes Hurt DO at 18:40 EDT Tel [phone], Service support , CC: Dominique Ricci DO; Jameson Herrera MD Enrobing Machine Feeder: Signed CHEST PA AND LATERAL Observed: 06/23/2018 Status: F Source: MOODY 5:07 PM [facility] REPOSITORY [facility] Imaging Services [address] [place] [address] Chest PA and Lateral MR#: [id number] Acct: [id number] Name: JORGE ROQUE Rep #: [id number] : 1975 M 43 From: Kinsey Armando MD PCP: Jameson Herrera MD Status: REG ER Study: Chest PA and Lateral Date of Exam: 06/23/18 Exam# [id number] Ordering Dr: Dominique Ricci DO STUDY: X-RAY CHEST REASON FOR EXAM: Male, 43 years old. Fall, pain. TECHNIQUE: PA and lateral views of the chest. COMPARISON: October 20, 2016 FINDINGS: The lungs are clear and expanded. There is no demonstrated pleural abnormality. Normal size heart. Normal mediastinum and dunia. Normal visualized pulmonary arteries. Normal visualized aortic arch and descending thoracic aorta. There are diffuse degenerative changes of the visualized thoracic spine. Normal visualized ribs, clavicles, and shoulders. There is no demonstrated abnormality of the visualized soft tissue structures of the upper abdomen. RAD/Chest PA and Lateral IMPRESSION: No acute cardiopulmonary process. Electronically Signed: Kinsey Armando MD at 19:06 EDT Tel , Service support , CC: Dominique Ricci DO; Jameson Herrera MD Enrobing Machine Feeder: Signed EMERGENCY DEPARTMENT Observed: 06/18/2018 Status: F Source: MOODY SUMMARY 8:46 PM [facility] REPOSITORY [facility] Medical Records Department [address] [place] [address] Emergency Department Summary 06/18/18 1757 MR#: [id number] Acct: [id number] Name: JORGE ROQUE Rep #: [id number] : 1975 43 From: Jovanni Avila MD PCP: Jameson Herrera MD Status: DEP ER - ER Visit Summary Date of Service: 06/18/18 Chief Complaint: Abdominal pain History of Present Illness: The patient is a 43 M presents to the emergency department with 3 days of intermittent abdominal pain. Patient has had a history of right partial nephrectomy. He has a known hernia at his surgical site. He has been seen and evaluated by Dr. Brasher who has allowed him to resume work with some light activity. 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 He states over the past 3 days he has really increase his activity and since then has had some increasing pain. He denies any fevers or chills. He denies any change in bowel habits. He does admit to mild dysuria. He states that he just feels very uncomfortable from his pain. He states that he noticed when he coughs, he has some bulging, but it goes away. Physical Examination: Vital signs reviewed General: Well-nourished, well-developed Head: Normocephalic, atraumatic Eyes: Pupils equal and reactive, extraocular muscles intact Neck, supple, no lymphadenopathy Heart: Regular rate and rhythm Respiratory: No distress, clear bilaterally Abdomen: Soft, mildly tender in the right upper quadrant without rebound or guarding, no palpable hernia, no evidence of incarceration, nondistended, no peritoneal signs Back: Nontender Extremities: Nontender, no edema, no cords Skin: Normal color no rash Neuro: Alert and oriented, no focal or lateralizing deficits Test Results: [] Emergency Department Course and Treatment: The patient has had some dysuria and pain into his testicles. He really has no tenderness in his flank or over his incisional sites. Urine does show evidence of infection. I do feel the patient may have mild pyelonephritis. He will be started on Cipro. His urine is cultured. He has no fever or chills. If that is safe for outpatient therapy. The patient be discharged home. Treatment Plan: [] Disposition: Discharge Impression: 1. Abdominal pain 2. Dysuria This note was generated with ElementsLocal dictation software. It may contain incorrect words, spelling, and punctuation that were not noted in review of the chart prior to signing ED Disposition - Plan for ED Patient: Chief Complaint: Abd Pain Instructions: ED UTI Cystitis Male Prescriptions: Phenazopyridine HCl [Pyridium] 200 mg PO BID PRN PRN #10 tab PRN Reason: Pain Ciprofloxacin [Cipro] 500 mg PO BID #14 tab Referrals: Jameson Herrera MD [Primary Care Provider] - What to do if you have Problems For any increased pain, shortness of breath, bleeding, nausea or vomiting, chest pain, or any unexpected problems, contact your Primary Care Provider. Call [facility] ([phone]) or report to the closest Emergency Room. Call 911 if necessary. 06/18/182045 <Electronically signed by Jovanni Avila MD> Date Jovanni Avila MD Cosigner Signature (If Indicated): Date CC: Jameson Herrera MD URINALYSIS, COMPLETE Collected: 06/18/2018 Status: F Source: MOODY 6:10 PM [facility] REPOSITORY Order Comment: Order Date: 06/18/18 How was Urine Obtained? CLEAN CATCH TYPE CODE TESTS RESULT OUT OF RANGE REFERENCE UNITS LAB L400.3000 Yellow COLOR Normal Yellow LAB L400.3050 Clear Normal CLARITY Cloudy LAB L400.3200 Normal mg/dl Normal GLUCOSE, UR Normal LAB L400.3300 Negative mg/dL Normal BILIRUBIN URINE Negative LAB L400.3400 Negative mg/dl Normal KETONE UR Negative LAB L400.3465 1.002-1.030 Normal SP.GR. DIPSTX 1.015 LAB L400.3550 5.0 - 8.0 pH UR Normal 6.0 LAB L400.3600 Negative mg/dl High PROT 15 DIPSTX LAB L400.3700 Normal mg/dl Normal UROBILI Normal LAB L400.3750 Negative Normal NITRITE UR Negative LAB L400.3780 Negative /ul High 10 OCCULT BLOOD-UR LAB L400.3800 Negative /ul High LEUK ESTERASE 500 LAB L400.4050 0-5 /hpf WBC Normal >100 SEEN LAB L400.4100 0-5 /hpf Normal RBC-UA 0-5 SEEN LAB L400.4150 0-5 /hpf SQUAM Normal EPI 0-5 SEEN LAB L400.4300 None Seen /hpf 0 Normal BACTERIA SEEN LAB L400.4350 <or=2+ /hpf 0 Normal MUCUS, URINE SEEN Performed By: #### L400.0001 #### [facility] [address] [place], [address] ANKLE Observed: 06/02/2018 Status: F Source: [facility] 6:54 PM [facility] REPOSITORY Final Report Accession No: [id number] Performed: Jun 02 2018 6:54PM Examination: RIGHT ANKLE RIGHT ANKLE COMPARISON: None. REASON FOR STUDY: Pain and tenderness. REPORT: 3 films were done of the right ankle that shows prominent soft tissue swelling. Mild chronic changes are noted along the inferior aspect of the medial and lateral malleolus. Mortise joint and talar dome are remarkable. There is moderate plantar exostosis noted. Limited views of the foot show mild chronic changes. IMPRESSION: 1. Moderate soft tissue swelling of the right ankle. 2. No fracture or dislocation. Mild chronic and degenerative changes noted. Interpreting Physician: JORGE HARVEY D.O. Trans: [id number] : cc: CBC WITH DIFF Collected: 06/02/2018 Status: F Source: [facility] 6:49 PM [facility] REPOSITORY TYPE CODE TESTS RESULT OUT OF RANGE REFERENCE UNITS LAB WBC 3.6-10.4 K/mcL WBC Normal 8.9 LAB RBC 4.0-5.5 M/mcL RBC Normal 5.07 LAB HGB 12.9-16.9 g/dL Normal Hemoglobin 13.9 LAB HCT 37.9-49.2 % Normal Hematocrit 42.9 LAB MCV 82.8-99.3 FL MCV Normal 84.5 LAB MCH 27.7-34.6 pg Low MCH 27.4 LAB MCHC 32.9-35.5 g/dL Low MCHC 32.4 LAB RDW 10-14.3 % RDW Normal 14.3 LAB PLT 139-354 K/mcL Platelet Normal Count 232 LAB MPV 6.6-10.8 FL MPV Normal 9.3 LAB NEUT# 1.4-6.8 K/mcL Normal Neutrophil # 6.2 LAB LYMPH# 0.9-3.6 K/mcL Normal Lymphocyte # 1.7 LAB MONO# 0.2-0.6 K/mcL Monocyte Normal # 0.6 LAB EOS# 0-0.5 K/mcL Normal Eosinophil # 0.3 LAB BASO# 0-0.2 K/mcL Basophil Normal # 0.1 LAB SEGNEU% % Normal Segmented Neut % 69.2 LAB LYMP% % Normal Lymphocyte% 19.5 LAB MO% % Monocyte Normal % 6.9 LAB EO% % Normal Eosinophil % 3.3 LAB BA% % Basophil Normal % 1.1 Performed By: #### CBCDIF, CMET #### Unless otherwise noted, all testing performed by [place] [address] [address] [place], [place] [address] CLIA: [id number] Reactor Kettle Operator: Hali Cheri, M.D. COMPREHENSIVE METABOLIC Collected: 06/02/2018 Status: F Source: [facility] PANEL 6:49 PM [facility] REPOSITORY TYPE CODE TESTS RESULT OUT OF RANGE REFERENCE UNITS LAB GLU 70-99 mg/dL Normal Glucose 78 Result Comment: This test result might be falsely depressed or falsely elevated on samples drawn from patients taking Sulfasalazine and Sulfapyridine. Venipuncture should occur prior to taking either of these drugs. LAB BUN 8-25 mg/dL Normal BUN 11 LAB CREA 0.50-1.30 mg/dL Normal Creatinine 0.92 LAB eGFR ml/min/1.73s Normal q.m eGFR,NonAfrican-A merican >=60 Result Comment: Non- GFR Calc eGFR is an estimated Glomerular Filtration Rate based on the value of the patient's serum creatinine. In outpatients, eGFR should be used as a helpful tool in screening for CKD. In inpatients or patients with acute renal failure, eGFR represents the GFR at the moment of the draw and should be used with caution. LAB eGFRB ml/min/1.73sq.m eGFR, Normal -Luxembourger >=60 Result Comment: GFR Calc LAB CALCM 8.4-10.2 mg/dL Calcium Normal 8.8 LAB NA 135-145 mmol/L Sodium Normal 143 LAB K 3.5-5.1 mmol/L Normal Potassium 3.9 LAB CL 98-108 mmol/L High Chloride 110 LAB CO2 21-32 mmol/L CO2 Normal 26 LAB AST 0-45 U/L AST Normal (SGOT) 15 Result Comment: This test result might be falsely depressed or falsely elevated on samples drawn from patients taking Sulfasalazine and Sulfapyridine. Venipuncture should occur prior to taking either of these drugs. LAB ALT 14-65 U/L Normal ALT (SGPT) 27 Result Comment: This test result might be falsely depressed or falsely elevated on samples drawn from patients taking Sulfasalazine and Sulfapyridine. Venipuncture should occur prior to taking either of these drugs. LAB ALKP 40-150 U/L Normal Alkaline Phosphatase 106 LAB BILIT 0.3-1.2 mg/dL Normal Bilirubin,Total 0.3 LAB PROT 6.0-8.0 g/dL Normal Protein, Total 7.3 LAB ALB 3.2-5.2 g/dL Normal Albumin 3.6 Performed By: #### CBCDIF, CMET #### Unless otherwise noted, all testing performed by [place] [address] CLIA: [id number] Reactor Kettle Operator: Hali Alonzo M.D. URINALYSIS, ROUTINE Collected: 06/02/2018 Status: F Source: [facility] 6:45 PM [facility] REPOSITORY TYPE CODE TESTS RESULT OUT OF RANGE REFERENCE UNITS LAB COLOR Normal Color, Urine Yellow LAB CHAUR Normal Character Hazy LAB SPGRUR 1.003-1.029 Normal Specific 1.026 [place],Urine LAB PHUR 4.5-8.0 Normal pH,Urine 5.0 LAB GLUCUR NEG;NEGATIVE mg/dL Normal Glucose,Urine Negative LAB KETUR NEG;NEGATIVE mg/dL Normal Ketone,Urine Negative LAB PROTUR NEG;NEGATIVE mg/dL Normal Protein,Urine Negative LAB BLDUR NEG;NEGATIVE Normal Blood,Urine Negative LAB NITUR NEG;NEGATIVE Normal Nitrite,Urine Negative LAB BILIUR NEG;NEGATIVE Normal Bilirubin,Urine Negative LAB UROUR <2 mg/dL Normal Urobilinogen,Ur < 2.0 ine LAB LEUESTUR Negative Abnormal Leuk.Esterase,U Large rine LAB WBCUR 0-5 /HPF High WBC,Urine 117 LAB RBCUR 0-5 /HPF High RBC,Urine 10 LAB SQEPI 0-40 /HPF Normal Squamous < 1 Epithelial LAB MUCUSUR None Seen /HPF Abnormal Mucus, Urine Rare Performed By: #### UA #### Unless otherwise noted, all testing performed by [place] [address] CLIA: [id number] Reactor Kettle Operator: Hali Alonzo M.D. Observed: 06/02/2018 Status: F Source: [facility] CULTURE, URINE 6:45 PM [facility] REPOSITORY Test Name: Culture, Urine Culture Status: Final Culture Report: No Growth - Day 2 Micro Source: Urine Performed By: #### URCUL #### Unless otherwise noted, all testing performed by [place] [address] CLIA: [id number] Reactor Kettle Operator: Hali Alonzo M.D. CHLAMYDIA/GC/TRICH AMP RNA Collected: Status: F Source: [facility] UR 06/02/2018 6:45 PM [facility] REPOSITORY TYPE CODE TESTS RESULT OUT OF REFERENCE UNITS RANGE LAB CHLTRNAU Negative Normal Chlamydia Negative trach, Amp RNA Ur LAB GCRNAUR Negative Normal Neisseria Negative Gonorr, Amp.RNA Ur Result Comment: Test Performed by [facility] [address] [place] [address] LAB TRICRNAU Negative Trichomonas Abnormal vag. Amp RNA Ur POSITIVE Result Comment: Test Performed by [facility] [place] [address] Performed By: #### CHLGCTRU #### Unless otherwise noted, all testing performed by [facility] [address] [address] CLIA: [id number] Reactor Kettle Operator: Hali Alonzo M.D. PROGRESS Observed: 06/02/2018 Status: COMPLETED Source: [place] 12:23 PM [facility] REPOSITORY O ID: [id number] Author: Blair Steiner (Nahum) Benjamin Service: (none) Author Type: Physician Keying Machine Operator Type: Progress Notes Filed: 06/02/2018 2:39 PM Note Text: 43 year old male with c/o 1. Persistent pain from recurrence of hernia/ hematoma after last surgery. Has been under care of both Dr. Rocha and Dr. Brasher for surgical consultation. Has been told to wait until this Friday and plan is being reviewed for possible additional surgery. See prior notes. Needs something for pain. Using gabapentin which is not working (recommended by pain management Dr. Koenig). Describes as sharp and achy, varies intensity. No nausea or vomiting, normal appetite and bowel function. Percocet 1 pill a day helped at last visit. Not currently working. 2. Burning on urination tip of penis since Friday. Notes was in a [place] and swimming pool that evening. States there have been report of infection from something on the beach same area. No fever or chills. No change in frequency. No discharge or stains. Not sexually active in 3 weeks, unprotected, regular partner for 10 years. Reports she was having sex other partners but didn't know. HISTORIES FAMILY HISTORY Problem Relation Age of Onset - Hypertension Father - Arthritis Father - Diabetes Father - obesity [OTHER] Father - Hypertension Paternal Grandmother - Heart Paternal Grandmother - Diabetes Paternal Grandmother - renal failure [OTHER] Paternal Grandmother - Hypertension Paternal Grandfather - Heart Paternal Grandfather - Diabetes Paternal Grandfather PAST MEDICAL HISTORY Diagnosis Date - Hernia, abdominal - Hypertension - Morbid obesity (HCC) - Opioid use disorder, mild, abuse (HCC) see below - Substance abuse (HCC) cocaine and cannabis per counseling center notes, seeing counseling center PAST SURGICAL HISTORY Procedure Laterality Date - PAST SURGICAL HISTORY OF 03/09/2018 part of right kidney removed - REPAIR UMBILICAL IONA,5+Y/O,REDUC 3-7-13 Social History Marital status: Spouse name: Years of education: Number of children: 2 Social History Main Topics Smoking status: Never Smoker Smokeless tobacco: Never Used Alcohol use: No Drug use: No Other Topics Concern Caffeine Concern Yes Comment:moderate use 2+ 20z bottles of soda ACTIVE PROBLEM LIST Hypertension Left Knee Pain Patellar Tendinitis Morbid Obesity (Hcc) Right Renal Mass Obesity, Class III, BMI >= 40 E66.01 Renal Mass, Right Malignant Neoplasm of Right Kidney, Except Renal Pelvis (Hcc) Current Outpatient Prescriptions: gabapentin (NEURONTIN) 300 mg capsule Take 1 capsule by mouth twice daily for 90 days. Disp: 60 capsule Rfl: 2 hydrOXYzine HCl (ATARAX) 25 mg tablet Disp: Rfl: sertraline (ZOLOFT) 50 mg tablet Disp: Rfl: iv contrast (radiology procedure) CT ABD W -Inject, intravenously, once for 1 dose.No IV access, insert saline lock prior to the beginning of sedation, infusion, injection of imaging exam. Discontinue saline lock post exam. If Pt. has a central line or IVAD, may access for administration according to line specific nursing protocol. Once exam is complete flush line and de-access according to line specific nursing protocol in the CT contrast administration guidelines link. (Patient not taking: Reported on 04/06/2018 ) Disp: 1 Each Rfl: 0 ketorolac (TORADOL) 10 mg tablet Take 1 tablet by mouth every 6 hours as needed. Disp: 40 tablet Rfl: 0 docusate sodium (COLACE) 100 mg capsule Take 1 capsule by mouth twice daily as needed. (Patient not taking: Reported on 04/06/2018 ) Disp: 30 capsule Rfl: 0 No current facility-administered medications for this visit. BLOOD PRESSURE CONTROLLED due on 1993 DTAP,TDAP,TD(1 - Tdap) due on 1994 EXAM: BP 138/90 Pulse 80 Temp 36.9 ?C (98.5 ?F) (Tympanic) Resp 20 Wt (!) 180.5 kg (398 lb) BMI 58.77 kg/m? Pleasant morbidly obese man in no acute distress. Alert and oriented all spheres. Normal affect and cognition. Speech normal. No deficits to learning or comprehension. Skin warm, dry, pink to lips and nailbeds. Normal turgor. Respirations regular and unlabored. Chest CTA. HRRR without murmur or gallop. Morbidly obese abdomen making exam difficult. In area of scars has mass palpable which is very tender. Active bowel sounds throughout. Extrem: no clubbing, cyanosis, edema. Extremities are warm and pink with prompt capillary refill. Penis retractile. Meatus appears normal. No discharge. Testicles descended, no masses or tenderness. ASSESSMENT/PLAN: 1. Dysuria - ICD9: 788.1, ICD10: R30.0 (primary diagnosis) acute - Patient education for prevention given - UA DIP B/O - URINE CULTURE - GC/CHLAMYDIA DNA DET - FLOXIN 2. Abdominal wall hernia - ICD9: 553.20, ICD10: K43.9 F/u with surgeons as indicated by them. Trial increase in gabapentin. - GABAPENTIN 600 MG TABLET f/u as needed in next 2 weeks if not improving. Blair Alexander PA-C GC/CHLAMYDIA AMPLIF Collected: 06/02/2018 Status: F Source: [place] 12:20 PM [facility] REPOSITORY TYPE CODE TESTS RESULT OUT OF REFERENCE UNITS RANGE LAB GCCTSR GC/Chlam Amp Urine Source LAB GCAMPL GC Negative Amplification for Neisseria gonorrhoeae by amplification. LAB CLAMPL Chlamydia Negative Amplif for Chlamydia trachomatis by amplification. Performed By: #### GCCT #### [facility] [address] [place], [place] [address] Observed: 06/02/2018 Status: F Source: [place] URINE CULTURE 12:20 PM [facility] REPOSITORY Sp. Request/Comment: - Specimen received in preservative Culture Result - <10,000 CFU/ml Normal urogenital roopa Performed By: #### URCUL #### [facility] [address] [place], [place] [address] CNOV Observed: 06/02/2018 Status: COMPLETED Source: [place] 12:00 PM [facility] REPOSITORY Office Visit (FAMPWS) JORGE ROQUE ([id number]) 1975 M Date Time Provider Department 06/02/18 12:00 PM Blair ALEXANDER) [facility] During your visit today, we recorded the following information about you: Temperature Pulse Respiration Blood pressure 98.5 degrees 80/minute 20/minute 138/90 Weight 180.5 kg M Jatin Alexander PA-C 06/02/2018 2:39 PM Signed 43 year old male with c/o 1. Persistent pain from recurrence of hernia/ hematoma after last surgery. Has been under care of both Dr. Rocha and Dr. Brasher for surgical consultation. Has been told to wait until this Friday and plan is being reviewed for possible additional surgery. See prior notes. Needs something for pain. Using gabapentin which is not working (recommended by pain management Dr. Koenig). Describes as sharp and achy, varies intensity. No nausea or vomiting, normal appetite and bowel function. Percocet 1 pill a day helped at last visit. Not currently working. 2. Burning on urination tip of penis since Friday. Notes was in a [place] and swimming pool that evening. States there have been report of infection from something on the beach same area. No fever or chills. No change in frequency. No discharge or stains. Not sexually active in 3 weeks, unprotected, regular partner for 10 years. Reports she was having sex other partners but didn't know. HISTORIES FAMILY HISTORY Problem Relation Age of Onset - Hypertension Father - Arthritis Father - Diabetes Father - obesity [OTHER] Father - Hypertension Paternal Grandmother - Heart Paternal Grandmother - Diabetes Paternal Grandmother - renal failure [OTHER] Paternal Grandmother - Hypertension Paternal Grandfather - Heart Paternal Grandfather - Diabetes Paternal Grandfather PAST MEDICAL HISTORY Diagnosis Date - Hernia, abdominal - Hypertension - Morbid obesity (HCC) - Opioid use disorder, mild, abuse (HCC) see below - Substance abuse (HCC) cocaine and cannabis per counseling center notes, seeing counseling center PAST SURGICAL HISTORY Procedure Laterality Date - PAST SURGICAL HISTORY OF 03/09/2018 part of right kidney removed - REPAIR UMBILICAL IONA,5+Y/O,REDUC 3-7-13 Social History Marital status: Spouse name: Years of education: Number of children: 2 Social History Main Topics Smoking status: Never Smoker Smokeless tobacco: Never Used Alcohol use: No Drug use: No Other Topics Concern Caffeine Concern Yes Comment:moderate use 2+ 20z bottles of soda ACTIVE PROBLEM LIST Hypertension Left Knee Pain Patellar Tendinitis Morbid Obesity (Hcc) Right Renal Mass Obesity, Class III, BMI >= 40 E66.01 Renal Mass, Right Malignant Neoplasm of Right Kidney, Except Renal Pelvis (Hcc) Current Outpatient Prescriptions: gabapentin (NEURONTIN) 300 mg capsule Take 1 capsule by mouth twice daily for 90 days. Disp: 60 capsule Rfl: 2 hydrOXYzine HCl (ATARAX) 25 mg tablet Disp: Rfl: sertraline (ZOLOFT) 50 mg tablet Disp: Rfl: iv contrast (radiology procedure) CT ABD W -Inject, intravenously, once for 1 dose.No IV access, insert saline lock prior to the beginning of sedation, infusion, injection of imaging exam. Discontinue saline lock post exam. If Pt. has a central line or IVAD, may access for administration according to line specific nursing protocol. Once exam is complete flush line and de-access according to line specific nursing protocol in the CT contrast administration guidelines link. (Patient not taking: Reported on 04/06/2018 ) Disp: 1 Each Rfl: 0 ketorolac (TORADOL) 10 mg tablet Take 1 tablet by mouth every 6 hours as needed. Disp: 40 tablet Rfl: 0 docusate sodium (COLACE) 100 mg capsule Take 1 capsule by mouth twice daily as needed. (Patient not taking: Reported on 04/06/2018 ) Disp: 30 capsule Rfl: 0 No current facility-administered medications for this visit. BLOOD PRESSURE CONTROLLED due on 1993 DTAP,TDAP,TD(1 - Tdap) due on 1994 EXAM: BP 138/90 Pulse 80 Temp 36.9 ?C (98.5 ?F) (Tympanic) Resp 20 Wt (!) 180.5 kg (398 lb) BMI 58.77 kg/m? Pleasant morbidly obese man in no acute distress. Alert and oriented all spheres. Normal affect and cognition. Speech normal. No deficits to learning or comprehension. Skin warm, dry, pink to lips and nailbeds. Normal turgor. Respirations regular and unlabored. Chest CTA. HRRR without murmur or gallop. Morbidly obese abdomen making exam difficult. In area of scars has mass palpable which is very tender. Active bowel sounds throughout. Extrem: no clubbing, cyanosis, edema. Extremities are warm and pink with prompt capillary refill. Penis retractile. Meatus appears normal. No discharge. Testicles descended, no masses or tenderness. ASSESSMENT/PLAN: 1. Dysuria - ICD9: 788.1, ICD10: R30.0 (primary diagnosis) acute - Patient education for prevention given - UA DIP B/O - URINE CULTURE - GC/CHLAMYDIA DNA DET - FLOXIN 2. Abdominal wall hernia - ICD9: 553.20, ICD10: K43.9 F/u with surgeons as indicated by them. Trial increase in gabapentin. - GABAPENTIN 600 MG TABLET f/u as needed in next 2 weeks if not improving. NAHUM Garcia PA-C 06/02/2018 12:45 PM Signed Force fluids with water and juices (not caffeine) to 2000cc per day until symptoms improve. If you develop a fever, chills, unusual back pain, or vomiting, this may mean you have infection in the kidney which can be more serious. If this occurs, or you fail to improve on the antibiotics in 3 days, either call the office to be checked or go to the emergency department. Take Ofloxin as directed per prescription If you should breakout in a rash, stop the medicine and call the office. Any antibiotic has the potential to cause diarrhea due to alteration in the normal bacterial roopa of the gut. This can be reduced by eating yogurt with active cultures daily while on the medication. If diarrhea becomes severe (watery, large volumes or more than 3-4/day) call the office. Antibiotics may interfere with control. If you are on oral contraceptives, use another form of protection (condoms, foams, jellies, diaphragm) throught the end of whatever pill pack you are on when you finish the antibiotic. Increase Gabapentin as directed. F/u in 1-2 weeks as needed. Referring Provider: SELF [200] Allergies As of Date: 06/02/2018 Noted Allergy Reaction HYDROCORTISONE 04/22/2018 2 - Rash Comments: topical TRAMADOL 04/22/2018 8 - GI Upset Date Reviewed: 06/02/2018 Reviewed by: Colette Leon LPN - Fully Assessed Reason for Visit: Abdominal Pain [1] Cmt: right flank from hernia had follow up with Dr. Rocha 04/22/[address] Brasher on 05/29/18 and was given a brace to try for the pain UTI [116] Cmt: started about 1-2 days ago Reason For Visit History Recorded Primary Visit Diagnosis:Dysuria [R30.0] Other Visit Diagnosis:Abdominal wall hernia [K43.9] Order(s):UA DIP B/O [4942031] Order #: [id number] gabapentin (NEURONTIN) 600 mg tabletTake 1 tablet by mouth three times daily for 90 days.Disp: 90 tabletRfl: 2 URINE CULTURE [SQURCUL] Order #: [id number]. #:[id number] GC/CHLAMYDIA DNA DET [SQGCCAMP] Order #: [id number]. #:[id number] Prescriptions as of 06/02/2018 Sig: HYDROXYZINE HCL 25 MG TABLET SERTRALINE 50 MG TABLET GABAPENTIN 600 MG TABLET Take 1 tablet by mouth three * X OFLOXACIN 400 MG TABLET Take 1 tablet by mouth twice * IV CONTRAST (RADIOLOGY PROCED* CT ABD W -Inject, intravenous* Patient not taking: Reported on 04/06/2018 KETOROLAC 10 MG TABLET Take 1 tablet by mouth every * DOCUSATE SODIUM 100 MG CAPSULE Take 1 capsule by mouth twice* Patient not taking: Reported on 04/06/2018 Problem List As Of Date 06/02/2018 Noted Resolved Hypertension [I10] INVALID FOR* Left knee pain [M25.562] INVALID FOR* Patellar tendinitis [M76.50] INVALID FOR* Morbid obesity [E66.01] INVALID FOR* Right renal mass [N28.89] INVALID FOR* Obesity, Class III, BMI >= 40 E66.01 [E66.01] INVALID FOR* Renal mass, right [N28.89] INVALID FOR* Malignant neoplasm of right kidney, except bean*INVALID FOR* Other instructions from your clinician: Force fluids with water and juices (not caffeine) to 2000cc per day until symptoms improve. If you develop a fever, chills, unusual back pain, or vomiting, this may mean you have infection in the kidney which can be more serious. If this occurs, or you fail to improve on the antibiotics in 3 days, either call the office to be checked or go to the emergency department. Take Ofloxin as directed per prescription If you should breakout in a rash, stop the medicine and call the office. Any antibiotic has the potential to cause diarrhea due to alteration in the normal bacterial roopa of the gut. This can be reduced by eating yogurt with active cultures daily while on the medication. If diarrhea becomes severe (watery, large volumes or more than 3-4/day) call the office. Antibiotics may interfere with control. If you are on oral contraceptives, use another form of protection (condoms, foams, jellies, diaphragm) throught the end of whatever pill pack you are on when you finish the antibiotic. Increase Gabapentin as directed. F/u in 1-2 weeks as needed. Prescriptions ordered this encounter Disp Refills Start End GABAPENTIN 600 MG TABLET 90 t* 2 06/02/2018 08/31/2018 Route: ORAL Sig: Take 1 tablet by mouth three times daily for 90 days. OFLOXACIN 400 MG TABLET 14 t* 0 06/02/2018 06/02/2018 Route: ORAL Sig: Take 1 tablet by mouth twice daily. Disc: Cost of medication Medications Discontinued During This Encounter gabapentin (NEURONTIN) 300 mg capsule 60 c* 2 05/07/2018 06/02/2018 Cmt: New dose Route: ORAL Sig: Take 1 capsule by mouth twice daily for 90 days. Disc: Reason for discontinue is not on file. Letter Text Toby Alexander PA-C [facility] Jorge Remedios Roque [address] [facility] [address] Clinic #: [id number] 06/04/2018 Dear Mr. Roque, I have received the results of your recent tests. The results of your Urine Culture test were either normal or within the acceptable range. We can discuss this at your next visit. Please do not hesitate to contact me with any questions. Sincerely, Toby Alexander PA-C [facility] electronically signed to expedite mailing Encounter Status:Closed by Blair ALEXANDER PA-C on 06/02/18 SURGERY VISIT REPORT Observed: 05/30/2018 Status: F Source: [place] 9:27 AM [facility] REPOSITORY [facility] [address] [place] [address] [address] [place] [address] OFFICE VISIT Date of Service: 05/29/18 MR#: [id number] Acct: [id number] Name: JORGE ROQUE Rep #: [id number] : 1975 Provider: Rodger Brasher MD Age/Sex: 43/M Location: [facility] Status: Signed Intake Vital Signs05/29/18 Height 5 ft 8 in 05/29/18 Weight: 390 lb Intake Visit Reasons: Hernia Rn Pediatric Required: No Is patient in pain?: Yes (Right abdomen) Pain scale (1-10): 9 Allergies hydrocortisone Allergy (Verified 05/29/18 13:48) Rash tramadol Adverse Reaction (Verified 05/29/18 13:48) Nausea Medications Sertraline HCl [Zoloft] 25 mg PO DAILY 04/30/18 [History Confirmed 05/29/18] gabapentin 300 mg capsule 300 mg PO BID 05/29/18 [History Confirmed 05/29/18] PFSH Medical History History of kidney cancer (Acute) Abdominal pain (Acute) Anxiety (Acute) Depression (Acute) Arthritis (Acute) Surgical History Hx of umbilical hernia repair (Acute) Hx of partial nephrectomy (Acute) Family History Father Diabetes Hypertension Social History Smoking Status: Never smoker second hand exposure: No alcohol intake: never substance use type: does not use caffeine: Yes what type of physical activity do you participate in: none frequency: does not exercise seatbelt use: always HPI HPI HPI: JORGE ROQUE, is a 43 M who presents to the office today for evaluation of right-sided abdominal pain. Patient underwent a partial nephrectomy on March 09, 2018 at [facility]. He was improving and then started to develop right-sided abdominal pain. Patient has had several CAT scans most recent was on 05/20/2018. Impression read stable right renal post operative partial nephrectomy changes and likely postoperative perinephric stranding. No fluid collections or abnormal excretions are seen. There was decrease in size and resolution of a subcutaneous seroma with in the right quadrant with a 2.5 cm fat-containing abdominal wall hernia. When comparing CAT scans it is clear that this is improving with regards to the seroma and the postoperative changes. His pain is located directly where his robotic incisions are located. He is having no change in his bowel or bladder habits. I have performed an umbilical hernia on him in the past. ROS General General: Yes weight change; no appetite, fatigue, colon cancer, breast cancer or weakness HEENT HEENT: No difficulty swallowing, eye injury, eye surgery, swollen glands or hoarseness Endo Endocrine: No thyroid disease, diabetes mellitus, thyroid cancer, Hair loss, heat intolerance or cold intolerance Skin Skin: No rash or changing moles Musc Musculoskeletal: Yes back problems and arthritis; no rheumatoid arthritis, gout or joint pain Cardio Cardiovascular: No murmur, pacemaker, heart disease, atrial fibrillation, high blood pressure, heart attack, heart stent, palpitations, shortness of breat with exertion or chest pain Psych Psychiatric: Yes depression and anxiety; no hearing voices Resp Respiratory: No shortness of breath, No sleep apnea, No cough, No COPD, No asthma, No emphysema, No wheezing Gastro Gastrointestinal: Yes abdominal pain, No nausea or vomiting, No diarrhea, No constipation, No blood in stool, No acid reflux, No hemorrhoids, No ulcers, No gallbladder problem, No black,tarry stools Timothy Hematologic: No blood thinners, No blood disorders, No bleeding, No anemia, No blood clots Neuro Neurologic: No system reviewed and no additional complaints, except as docu, No as per HPI, No abnormal walking, No abnormal hearing, No abnormal movements, No abnormal speech, No behavioral changes, No burning sensations, No confusion, No seizure-like activity, No unsteadiness, No dizziness, No localized weakness, No frequent falls, No headache(s), No lack of coordination, No loss of vision, No memory loss, No numbness, No other visual disturbances, No radiating pain, No restless legs, No sensory deficit, No fainting, No tingling, No tremor(s), No weakness, No other Exam Const General: well developed, no acute distress, well hydrated Orientation: oriented to person, oriented to place, oriented to time [facility] Head: normocephalic, atraumatic Ears: external ears normal Mouth: moist mucous membranes Eyes Sclera: sclerae normal Pupils: normal by confrontation Neck Neck: no lymphadenopathy noted Neck mass: No Thyroid: symmetrical, thyroid normal Chest Chest palpation AND inspection: normal inspection of the chest Resp Effort AND Inspection: normal respiratory effort Auscultation: clear to auscultation bilaterally Percussion: percussion normal Cardio Rate: regular rate Rhythm: regular rhythm Heart Sounds: no murmurs GI Palpation: soft, no masses, no hepatosplenomegaly, nontender Rectal Exam: other Other: Rectal exam deferred. He has 3 incisions in his right upper quadrant. It is difficult to really ascertain how big this hernia is secondary to him being so morbidly obese. He is tender to palpation in the area. There is no rebound guarding or peritoneal signs identified Extrem General: no clubbing, cyanosis or edema, normal to inspection Assessment AND Plan Problems 1. Incisional hernia, without obstruction or gangrene K43.2; K43.91 Plan Before I make any recommendations I need to get all of his old records. He is already seen one surgeon in town who does not want to do any operating on him. Since he has so soon postoperative I believe doing any hernia operation on him poses a significant risk of recurrence as well as possible infection given his overall size. I am reluctant to do any surgeries on him at this time I believe that waiting might offer some benefit. I have instructed him to get an abdominal binder and as soon as I get the old records I will call him back. Coding Level of Care Code Off vis,new,level 3 Diagnoses Incisional hernia, without obstruction or gangrene K43.2; K43.91 Obstruction and gangrene presence: without obstruction or gangrene 05/30/18 0927 <Electronically signed by Rodger Brasher MD> Date Rodger Brasher MD Cosigner Signature: Date (if applicable) CC: Jameson Herrera MD ED PROV NOTE Observed: 05/23/2018 Status: COMPLETED Source: [place] 3:55 PM [facility] REPOSITORY O ID: [id number] Author: Leslie Turner MD Service: Emergency Medicine Author Type: Physician Type: ED Provider Notes Filed: 05/23/2018 4:03 PM Note Text: ED Provider Note Patient Name: Jorge Roque SERVICE DATE: 05/23/18 History Patient presents with: Hernia Chief complaint right flank pain. This is been chronic since he had surgery for renal cell carcinoma. He was referred to general surgery by his primary care doctor because of the concern for hernia development at that site. The general surgeon said that he could not be treated until his seroma resolved. He was referred to pain management however he says that the pain management doctor that he saw does not treat abdominal pain. His primary care doctor put him on gabapentin and increased the dose. He's had several emergency department visits for pain medication. He had a CT scan done at [facility] 3 days ago that showed that the seroma had resolved and he called to get in to see the surgeon but not until next week. He said he did not take any pain medication today. PAST MEDICAL HISTORY Diagnosis Date - Hernia, abdominal - Hypertension - Morbid obesity (HCC) - Opioid use disorder, mild, abuse (HCC) see below - Substance abuse (HCC) cocaine and cannabis per counseling center notes, seeing counseling center PAST SURGICAL HISTORY Procedure Laterality Date - PAST SURGICAL HISTORY OF 03/09/2018 part of right kidney removed - REPAIR UMBILICAL IONA,5+Y/O,REDUC 3-7-13 FAMILY HISTORY Problem Relation Age of Onset - Hypertension Father - Arthritis Father - Diabetes Father - obesity [OTHER] Father - Hypertension Paternal Grandmother - Heart Paternal Grandmother - Diabetes Paternal Grandmother - renal failure [OTHER] Paternal Grandmother - Hypertension Paternal Grandfather - Heart Paternal Grandfather - Diabetes Paternal Grandfather Social History Social History Main Topics - Smoking status: Never Smoker - Smokeless tobacco: Never Used - Alcohol use No - Drug use: No - Sexual activity: Not on file ALLERGIES Allergen Reactions - Hydrocortisone Rash topical - Tramadol GI Upset Review of Systems Constitutional: Negative for fever. HENT: Negative for ear pain. Eyes: Negative for pain. Respiratory: Negative for shortness of breath. Cardiovascular: Negative for chest pain. Gastrointestinal: Positive for abdominal pain. Negative for constipation, diarrhea and vomiting. Genitourinary: Negative for flank pain. Musculoskeletal: Negative for back pain. Skin: Negative for rash. Neurological: Negative for headaches. Psychiatric/Behavioral: Negative for agitation. Physical Exam BP 150/100 Pulse 80 Temp (Src) 98.3 (Temporal Artery) Resp 14 Ht 5' 9 (1.75m) Wt 372 lb (168.7kg) SpO2 98% BMI 54.91 kg/(m2). Physical Exam Constitutional: He is oriented to person, place, and time. He appears well-developed and well-nourished. HENT: Head: Normocephalic. Eyes: Conjunctivae are normal. Right eye exhibits no discharge. Left eye exhibits no discharge. No scleral icterus. Neck: Normal range of motion. Pulmonary/Chest: Effort normal. Abdominal: Soft. There is tenderness (at site of surgical insicion on right side of his pannus ). Musculoskeletal: Normal range of motion. Neurological: He is alert and oriented to person, place, and time. Skin: Skin is warm and dry. Psychiatric: He has a normal mood and affect. His behavior is normal. Diagnostic Testing ED Labs Ordered and Reviewed - No data to display Procedures Medical Decision Making MDM His OARRS shows a 3 day rx from [facility] ED filled 2 days ago. Notes from April 30 visit at [place] say that he is not to get narcotic rx from the ED anymore. I explained that I cannot prescribe narcotics for him. He was given oxycodone in the ED. He was told he must follow up with his PCP for chronic pain management. ED Course / Clinical Impression Clinical Impressions as of May 23 1555 Chronic abdominal pain Plan The patient was DISCHARGED: Counseled patient regarding suspected diagnosis AND need for follow-up. Discharged home with verbal and written instructions. They were instructed to return as needed for persistent or worsening symptoms or any new concerns. Condition at time of disposition: stable SIGNATURE: MD Leslie Simons MD 05/23/18 1603 ED NOTE Observed: 05/23/2018 Status: COMPLETED Source: [place] 3:53 PM [facility] REPOSITORY HNO ID: [id number] Author: Anna Clancy) ANA LAURA Soares Service: Emergency Medicine Author Type: Registered Nurse Type: ED Notes Filed: 05/23/2018 3:53 PM Note Text: Patient informed: the name of medication, why we are giving it, possible side effects, what they may expect to feel, and was offered a chance to ask questions, prior to the administration of Oxycodone. ED NOTE Observed: 05/23/2018 Status: COMPLETED Source: [place] 3:21 PM [facility] REPOSITORY HNO ID: [id number] Author: Anna Clancy) ANA LAURA Soares Service: Emergency Medicine Author Type: Registered Nurse Type: ED Notes Filed: 05/23/2018 3:22 PM Note Text: Pt reports recurrent issue with hernia; was seen at [facility] 3 days ago, CT completed at that visit. Pt reports he was given pain meds to go home on for a couple of days. EMERGENCY DEPARTMENT Observed: 05/20/2018 Status: F Source: [place] SUMMARY 9:51 PM [facility] REPOSITORY [facility] Medical Records Department [address] [place] [address] Emergency Department Summary 05/20/18 1904 MR#: [id number] Acct: [id number] Name: JORGE ROQUE Rep #: [id number] : 1975 42 From: Edil Alex PCP: Jameson Herrera MD Status: REG ER ADDENDUM by Edil Zhang on 05/20/18 at 2151 OARRS Report was checked on the patient. Last prescription was for 7 hydrocodone on April 30. Review also he is had intermittent prescription since January of this year with multiple providers. There is one overlap in March by one provider. There is a new finding today on his CT. Discussed with patient he will need to see a surgeon for continued prescriptions or from his PCP. Discussed likely would not get refills of opiates if he returns without a plan of care by his physicians. Patient understands. Date Edil Zhang DO cc: Jameson Herrera MD * Signed - ER Visit Summary Date of Service: 05/20/18 Chief Complaint: Abdominal pain History of Present Illness: The patient is a 42 M 2 day history worsening right side incision no abdominal pain. Status post partial nephrectomy March 09 at [facility]. He states it was cancerous. He is having pain up to a month ago. Pain resolved. Symptoms return 2 days ago. He states he was moving furniture 4 days ago for his dad. There is no injuries. No nausea or vomiting. Normal bowel movements, last time was yesterday. States on follow-up he has been told it could be a hernia in the region. States pain is 9 out of 10. Worse when he moves. Denies fevers. Denies urinary symptoms. Physical Examination: General: Alert and oriented 3, no acute distress HEENT: Normocephalic, atraumatic. Moist mucosa membranes Neck: supple, nontender. Cardiovascular: Regular rate and rhythm, no murmurs Respiratory: Normal breath sounds, symmetric, no distress Abdomen: Soft, 3 healed incisions right upper quadrant, tender in the lower incision region. There is no bulging palpated. No surrounding erythema or induration. Extremities: Nontender, no edema, pulses intact 4 Neuro: no focal neurological deficits. Test Results: WBC 9. Hemoglobin 14. Creatinine 0.92. Lipase 82. Liver enzymes normal. CT abdomen pelvis 2.5 cm fat-containing hernia noted. Stable postop changes. Emergency Department Course and Treatment: Patient pain along the incisional site right lower quadrant. Normal bowel movements. Treated with morphine in the ED. Labs are stable. CT confirms a fat-containing hernia in the region of patient's pain. Reevaluation symptoms were improved. Discuss lifting restrictions. He is sent home with a disc. Short prescription for pain control. He will follow-up with his surgeon at [facility] for reevaluation as an outpatient. All questions were answered. Treatment Plan: [] Disposition: Discharge Impression: Right abdominal fat hernia This note was generated with ElementsLocal dictation software. It may contain incorrect words, spelling, and punctuation that were not noted in review of the chart prior to signing ED Disposition - Plan for ED Patient: Disposition: Home or Assisted Living Chief Complaint: Abd Pain Diagnosis: Abdominal hernia Instructions: What Is a Hernia? Prescriptions: Oxycodone HCl/Acetaminophen [Percocet 5/325] 1 tablet PO Q6H PRN PRN 3 Days #12 tablet PRN Reason: Pain Referrals: Jameson Herrera MD [Primary Care Provider] - Additional Instructions: Fat-containing right abdominal hernia. No lifting more than 10 pounds. Call your surgeon from [facility] for outpatient follow-up and reevaluation. Take image from disc to your surgeon. What to do if you have Problems For any increased pain, shortness of breath, bleeding, nausea or vomiting, chest pain, or any unexpected problems, contact your Primary Care Provider. Call [facility] ([phone]) or report to the closest Emergency Room. Call 911 if necessary. 05/20/18 6390 <Electronically signed by Edil Alex> Date Edil Alex Cosigner Signature (If Indicated): Date CC: Jameson Herrera MD CBC W/DIFF, AUTOMATED Collected: 05/20/2018 Status: F Source: [place] 7:15 PM [facility] REPOSITORY TYPE CODE TESTS RESULT OUT OF RANGE REFERENCE UNITS LAB L100.1000 4.4-11.0 K/mm3 Normal WBC 9.0 LAB L100.1200 4.6-6.2 M/mm3 Normal RBC 5.04 LAB L100.1300 13.0-16.5 g/dl Normal HGB 13.9 LAB L100.1400 40-54 % Normal HCT 44.2 LAB L100.1500 80-94 fL Normal MCV 87.7 LAB L100.1600 27.0-32.0 pg Normal MCH 27.6 LAB L100.1700 32-36 g/gl Low MCHC 31.4 LAB L100.1810 11.6-14.6 % Normal RDW CV 13.7 LAB L100.1820 35.1-43.9 fl Normal RDW SD 43.6 LAB L100.1900 150-450 K/mm3 Normal PLT 194 LAB L100.2000 6.2-12.0 fl Normal MPV 10.6 LAB L100.2100 47-70 % High NEUT% 70.2 LAB L100.2200 19-41 % Normal LY% 21.2 LAB L100.2300 0-10 % Normal MONO% 6.0 LAB L100.2400 0-5 % Normal EO% 2.3 LAB L100.2500 0-1 % Normal BASO% 0.2 LAB L100.2550 0.0-0.9 % Normal IM GRAN % 0.100 Result Comment: IG% - Immature Granulocytes (promyelocytes, myelocytes and metamyelocytes) > 1% indicates that a LEFT SHIFT is Present. LAB L100.2620 2.0-7.7 X10 3/uL Normal Absolute Neut 6.3 LAB L100.2720 0.83-4.51 X10 3/ul Normal Absolute Lymph 1.92 Performed By: #### L100.0100 #### [facility] [address] [place], [place] [address]all [facility] [place], [address] COMPREHENSIVE METABOLIC Collected: 05/20/2018 Status: F Source: [facility] 7:15 PM [facility] REPOSITORY TYPE CODE TESTS RESULT OUT OF RANGE REFERENCE UNITS LAB L501.0100 74-106 mg/dL Normal GLU 96 Result Comment: Please note revised GLUCOSE reference range effective 2017. LAB L501.1000 7-18 mg/dL High BUN 20 LAB L501.1100 0.70-1.30 mg/dL Normal CREAT,SERUM 0.91 Result Comment: The validity of the calculated GFR AND GFRAA in patients over 70 years has not been determined. Clinical correlation is essential. LAB L501.1110 >60 mL/min Normal EST GFR 96 Result Comment: Non- GFR Calc LAB L501.1115 >60 mL/min Normal EST GFR - AA 116 Result Comment: GFR Calc LAB L501.1255 ml/min Normal Estimated CRCL 112.63 LAB L501.1300 10-20 RATIO High BUN/CRE 21.9 LAB L501.1500 6.4-8. g/dL 2 T PROT Normal 7.5 LAB L501.1800 3.2-5. g/dL 0 ALB Normal 3.6 LAB L501.1950 2.2-4. g/dL 2 GLOB Normal 3.9 LAB L501.2000 0.9-2. RATIO 4 A/G Normal 0.9 LAB L501.2200 8.5-10 mg/dL .1 CA Normal 8.6 LAB L501.4100 15-37 U/L Low AST 14 LAB L501.4305 45-117 U/L ALK P Normal 95 LAB L501.4405 16-61 U/L ALT Normal 24 LAB L501.4600 0.20-1 mg/dL .00 T BILI Normal 0.40 LAB L501.5300 136-14 mmol/L 5 NA Normal 140 LAB L501.5600 3.5-5. mmol/L 1 K Normal 4.0 LAB L501.5900 98-107 mmol/L CL Normal 105 LAB L501.6100 21.0-3 mmol/L 2.0 CO2 Normal 29.0 LAB L501.6200 5-15 GAP Normal 6 Performed By: #### L500.4050, L501.2450 #### [facility] [address] [place], [address] LIPASE Collected: 05/20/2018 Status: F Source: [place] 7:15 PM [facility] REPOSITORY TYPE CODE TESTS RESULT OUT OF RANGE REFERENCE UNITS LAB L501.2450 73-393 U/L Normal LIPASE 82 Performed By: #### L500.4050, L501.2450 #### [facility] [address] [place], [place], [address] ABDOMEN/PELVIS WITH Observed: 05/20/2018 Status: F Source: [place] CONTRAST 7:02 PM [facility] REPOSITORY [facility] Imaging Services [address] [place] [address] Abdomen/Pelvis WITH Contrast MR#: [id number] Acct: [id number] Name: JORGE ROQUE Rep #: [id number] : 1975 M 42 From: Alverto Teodoro PHILLIPS PCP: Jameson Herrera MD Status: REG ER Study: Abdomen/Pelvis WITH Contrast Date of Exam: 05/20/18 Exam# [id number] Ordering Dr: Edil Zhang DO STUDY: CT ABDOMEN AND PELVIS WITH CONTRAST REASON FOR EXAM: Male, 42 years old. Right sided abdominal pain, partial right nephrectomy 02/2018 d/t cancer, ? Incisional hernia. Additional scans thru abdomen after moving patient to visualize right side better. RADIATION DOSAGE (If Supplied By Facility): CTDIvol = ( 35.31 ) mGy, DLP = ( 3624.39 ) mGycm TECHNIQUE: Transaxial images were obtained from the dome of the diaphragm to the symphysis pubis without oral contrast. 100mL ml of Isovue 300 contrast was administered. Sagittal and coronal images were reconstructed. Individualized dose optimization techniques were used for this CT. COMPARISON: [address] abdomen and pelvis FINDINGS: The visualized lung bases are unremarkable. The visualized portions of the heart are within normal limits. Normal liver. Normal gallbladder and extrahepatic biliary system. Normal spleen. Normal pancreas. Normal bilateral adrenal glands. Postsurgical changes of the right kidney consistent with partial nephrectomy which in comparison to 02 Apr 2018 demonstrates stable appearance of likely postoperative perinephric stranding and postsurgical cortical irregularity. Normal left kidney. Excretory views of bilateral kidneys demonstrates normal filling of the bilateral renal pelvis with contrast and proximal ureters with no evidence of hydronephrosis or delayed excretion. Normal visualized stomach. Normal small intestine. Normal colon. There is non-visualization of the appendix. Normal abdominal aorta. Normal inferior vena cava. Normal retroperitoneum. Bladder is largely contracted. Normal visualized prostate gland. Previously seen right lower quadrant subcutaneous likely postoperative seroma reduced in size and nearly completely resolved as seen on series 2 image 90 with likely postoperative subcutaneous stranding remaining. There is a small anterior right abdominal hernia at this level with defect measuring 2.5 cm. Normal osseous structures. CT/Abdomen/Pelvis WITH Contrast IMPRESSION: 1. Stable right renal postoperative partial nephrectomy changes and likely postoperative perinephric stranding. No large fluid collection or abnormal excretion on excretory views. Otherwise no evidence of acute intra-abdominal process. 2. Decreased size/near resolution of the subcutaneous seroma within the right quadrant with adjacent 2.5 cm fat-containing abdominal hernia. Electronically Signed: Alverto Valerio DO at 21:35 EDT , Service support , CC: Edil Zhang; Jameson Herrera MD Enrobing Machine Feeder: Signed EMERGENCY DEPARTMENT Observed: 05/10/2018 Status: F Source: [place] SUMMARY 3:24 PM [facility] REPOSITORY [facility] Medical Records Department [address] [place] [address] Emergency Department Summary 05/10/18 1318 MR#: [id number] Acct: [id number] Name: JORGE ROQUE Rep #: [id number] : 1975 42 From: Baylee Mo MD PCP: Jameson Herrera MD Status: DEP ER - ER Visit Summary Date of Service: 05/10/18 Chief Complaint: [] Back pain after falling downstairs History of Present Illness: The patient is a 42 M [] and groceries inadvertently fell down some stairs injuring his back he complains of pain from the mid T level to the upper lumbar level. He was able to get up was brought to the hospital for evaluation he has no numbness 6 paresthesias pain in his back he does have a history of having a partial kidney resection due to kidney cancer he is not specific about that history but his basic health has been very good until the fall which occurred because he stumbled he has not been ill in any way no abdominal pain head pain neck pain or any other complaints of any kind Physical Examination: [] He is complaining of pain to that level the back as above his vital signs are within normal range he is a very large gentleman his head is not tender nor is the neck the lungs are clear but distant the heart tones are distant the abdomen is very obese but soft and nontender he has some no discomfort to the C-spine he has some very mild pain to the mid thoracic to the lumbar level he is able to stand and walk he has normal strength his lower extremities no paresthesias his upper extremities unremarkable his chest and abdomen the rest of his body showed no areas of trauma or complaints of trauma Test Results: [] Emergency Department Course and Treatment: [] Mso4 and Zofran x-rays She has been medicated he is feeling better he is walking around the emergency department, his x-rays T-spine lumbar spine are unremarkable of explained the concept of occult injury to him he will follow-up with his doctors he has a history of partial nephrectomy so he will be given instructions to use Tylenol and if that is ineffective he will be given for [place] tablets to use as rescue medicine Treatment Plan: [] Disposition: [] Home stable Impression: [] Fall with back pain This note was generated with ElementsLocal dictation software. It may contain incorrect words, spelling, and punctuation that were not noted in review of the chart prior to signing ED Disposition - Plan for ED Patient: Chief Complaint: Back Referrals: Jameson Herrera MD [Primary Care Provider] - What to do if you have Problems For any increased pain, shortness of breath, bleeding, nausea or vomiting, chest pain, or any unexpected problems, contact your Primary Care Provider. Call [facility] ([phone]) or report to the closest Emergency Room. Call 911 if necessary. 05/10/18 1524 <Electronically signed by Baylee Mo MD> Date Baylee Mo MD Cosigner Signature (If Indicated): Date CC: Jameson Herrera MD DISCHARGE INSTRUCTION Observed: 05/10/2018 Status: F Source: [place] 3:02 PM [facility] REPOSITORY [facility] Medical Records Department [address] [place] [address] Discharge Instruction 05/10/18 1500 MR#: [id number] Acct: [id number] Name: JORGE ROQUE Rep #: [id number] : 1975 42 From: Baylee Mo MD PCP: Jameson Herrera MD Status: REG ER ED Disposition - Plan for ED Patient: Chief Complaint: Back Instructions: ED Contusion Back Prescriptions: Hydrocodone Bitart/Apap 5-325 [[place] 5MG-325MG] 1 tab PO Q4H PRN PRN 2 Days #7 tab PRN Reason: Pain Referrals: Jameson Herrera MD [Primary Care Provider] - What to do if you have Problems For any increased pain, shortness of breath, bleeding, nausea or vomiting, chest pain, or any unexpected problems, contact your Primary Care Provider. Call [facility] ([phone]) or report to the closest Emergency Room. Call 911 if necessary. 05/10/18 1502 <Electronically signed by Baylee Mo MD> Date Baylee Mo MD Cosigner Signature (If Indicated): Date CC: Jameson Herrera MD LUMBAR SPINE 2 OR 3 Observed: 05/10/2018 Status: F Source: [place] VIEWS 1:18 PM [facility] REPOSITORY [facility] Imaging Services [address] [place] [address] Lumbar Spine 2 or 3 Views MR#: [id number] Acct: [id number] Name: JORGE ROQUE Rep #: [id number] : 1975 M 42 From: Zayda Vyas MD PCP: Jameson Herrera MD Status: REG ER Study: Lumbar Spine 2 or 3 Views Date of Exam: 05/10/18 Exam# [id number] Ordering Dr: Baylee Mo MD STUDY: X-RAY - LUMBAR SPINE REASON FOR EXAM: Male, 42 years old. Status post fall TECHNIQUE: 3 view(s) of the lumbar spine were obtained. COMPARISON: None FINDINGS: Normal lumbar lordosis. There is no substantial scoliosis. There is a normal alignment of the vertebrae. There is mild multilevel spondylosis. There is minimal disc space narrowing at L4-L5. The soft tissue structures are unremarkable. RAD/Lumbar Spine 2 or 3 Views IMPRESSION: Degenerative change. No evidence of acute loss of height or alignment. Electronically Signed: Zayda Vyas MD at 14:03 EDT Tel , Service support , CC: MD Desean Mo; Jameson Herrera MD Enrobing Machine Feeder: Signed THORACIC SPINE 2 Observed: 05/10/2018 Status: F Source: [place] VIEWS 1:18 PM [facility] REPOSITORY [facility] Imaging Services [address] [place] [address] Thoracic Spine 2 Views MR#: [id number] Acct: [id number] Name: JORGE ROQUE Rep #: [id number] : 1975 M 42 From: Zayda Vyas MD PCP: Jameson Herrera MD Status: REG ER Study: Thoracic Spine 2 Views Date of Exam: 05/10/18 Exam# [id number] Ordering Dr: Baylee Mo MD STUDY: X-RAY - THORACIC SPINE REASON FOR EXAM: Male, 42 years old. Status post TECHNIQUE: Were view(s) of the thoracic spine were obtained. COMPARISON: None. FINDINGS: Normal kyphosis of the thoracic spine. There is no substantial scoliosis. There is multilevel endplate spondylosis of the thoracic vertebrae. There is multilevel disc space narrowing of the thoracic spine. The soft tissue structures are unremarkable. RAD/Thoracic Spine 2 Views IMPRESSION: Degenerative change. No visualized evidence of an acute fracture. Electronically Signed: Zayda Vyas MD at 14:16 EDT Tel , Service support , CC: MD Desean Mo; Jameson Herrera MD Enrobing Machine Feeder: Signed EMERGENCY DEPARTMENT Observed: 05/07/2018 Status: F Source: [place] SUMMARY 12:54 AM [facility] REPOSITORY [facility] Medical Records Department [address] [place] [address] Emergency Department Summary 05/06/18 2147 MR#: [id number] Acct: [id number] Name: JORGE ROQUE Rep #: [id number] : 1975 42 From: Derek Epps MD PCP: Jameson Herrera MD Status: DEP ER - ER Visit Summary Date of Service: 05/06/18 Chief Complaint: Right-sided abdominal pain History of Present Illness: The patient is a 42 M history of chronic right upper quadrant ventral hernia to having a partial nephrectomy March 09. Patient states he had pain since that time. He has been seen ER multiple times. He is also followed up with his primary care physician Dr. Herrera and also Dr. Rocha at the [facility]. Patient states today is helping someone move furniture and he had more pain in his hernia site. He denies any vomiting. He has had normal bowel movements. He also states he believes he may have had blood in his urine recently. Denies any fever. Denies any recent abdominal trauma. Physical Examination: Well-appearing middle-age male. Vital signs are stable afebrile. He does not look septic or toxic. He is in no acute distress. HEENT exam unremarkable. Neck nontender no lymphadenopathy. Lungs clear to auscultation bilaterally. Heart regular rhythm no murmur. Abdomen is morbidly obese. He has well-healed laparoscopic incisional scars in the right upper quadrant. He does have a right-sided ventral hernia which easily reduces. There is no signs of strangulated or incarcerated hernia. There is no signs of bowel obstruction. The right upper quadrant is only mildly tender. He is moving all 4 extremities. Neurologically is awake and alert. Test Results: Analysis was normal. No signs of blood or infection Emergency Department Course and Treatment: Patient was given 2 [place] here for pain. On repeat exam at 2150 is doing well and is comfortable being discharged home. He needs no further workup at this time in the clinic or deciding how to handle this hernia. Treatment Plan: Discharge and follow-up with the [facility]. Disposition: Discharge Impression: Acute on chronic abdominal pain secondary to a abdominal wall hernia s/p post right partial nephrectomy This note was generated with ElementsLocal dictation software. It may contain incorrect words, spelling, and punctuation that were not noted in review of the chart prior to signing ED Disposition - Plan for ED Patient: Chief Complaint: Abd Pain Referrals: Jameson Herrera MD [Primary Care Provider] - What to do if you have Problems For any increased pain, shortness of breath, bleeding, nausea or vomiting, chest pain, or any unexpected problems, contact your Primary Care Provider. Call [facility] ([phone]) or report to the closest Emergency Room. Call 911 if necessary. 05/07/18 0054 <Electronically signed by Derek Epps MD> Date Derek Epps MD Cosigner Signature (If Indicated): Date CC: Jameson Herrera MD DISCHARGE INSTRUCTION Observed: 05/07/2018 Status: F Source: [place] 12:54 AM [facility] REPOSITORY [facility] Medical Records Department [address] [place] [address] Discharge Instruction 05/06/182151 MR#: [id number] Acct: [id number] Name: JORGE ROQEU Rep #: [id number] : 1975 42 From: Derek Epps MD PCP: Jameson Herrera MD Status: DEP ER ED Disposition - Plan for ED Patient: Disposition: Home or Assisted Living Chief Complaint: Abd Pain Referrals: Jameson Herrera MD [Primary Care Provider] - As soon as possible Additional Instructions: Tylenol and Motrin for abdominal wall pain. Call and follow-up with both Dr. Herrera and Dr. Rocha for a long-term plan. What to do if you have Problems For any increased pain, shortness of breath, bleeding, nausea or vomiting, chest pain, or any unexpected problems, contact your Primary Care Provider. Call [facility] ([phone]) or report to the closest Emergency Room. Call 911 if necessary. 05/07/18 0054 <Electronically signed by Derek Epps MD> Date Derek Epps MD Cosigner Signature (If Indicated): Date CC: Jameson Herrera MD URINALYSIS, COMPLETE Collected: 05/06/2018 Status: F Source: [place] 7:58 PM [facility] REPOSITORY Order Comment: How was Urine Obtained? CLEAN CATCH TYPE CODE TESTS RESULT OUT OF RANGE REFERENCE UNITS LAB L400.3000 Yellow COLOR Normal Yellow LAB L400.3050 Clear Normal CLARITY Sl. Cloudy LAB L400.3200 Normal mg/dl Normal GLUCOSE, UR Normal LAB L400.3300 Negative mg/dL Normal BILIRUBIN URINE Negative LAB L400.3400 Negative mg/dl Normal KETONE UR Negative LAB L400.3465 1.002-1.030 Normal SP.GR. DIPSTX 1.020 LAB L400.3550 5.0 - 8.0 pH UR Normal 5.0 LAB L400.3600 Negative mg/dl PROT Normal DIPSTX Negative LAB L400.3700 Normal mg/dl Normal UROBILI Normal LAB L400.3750 Negative Normal NITRITE UR Negative LAB L400.3780 Negative /ul Normal OCCULT BLOOD-UR Negative LAB L400.3800 Negative /ul LEUK Normal ESTERASE Negative LAB L400.4050 0-5 /hpf WBC 0 Normal SEEN LAB L400.4100 0-5 /hpf 0 Normal RBC-UA SEEN LAB L400.4150 0-5 /hpf SQUAM Normal EPI 0-5 SEEN LAB L400.4300 None Seen /hpf 0 Normal BACTERIA SEEN LAB L400.4350 <or=2+ /hpf 0 Normal MUCUS, URINE SEEN Performed By: #### L400.0001 #### [facility] [address] [place], [address] DOWNTIME REPORT Observed: 05/06/2018 Status: F Source: [place] 1:14 PM [facility] Medical Records Department [address] [place] [address] Downtime Report MR#: [id number] Acct: [id number] Name: JORGE ROQUE Rep #: [id number] : 1975 42 From: Beltran Fontenot MD PCP: Jameson Herrera MD Status: DEP ER This patient was seen during an EMR downtime April 20, 2018 - April 27, 2018. This patient may have a combination of paper and electronic documentation or all paper documentation. All documentation is viewable within the e-chart portion of [employer] for each patient visit. EMERGENCY DEPARTMENT Observed: 05/01/2018 Status: F Source: [place] SUMMARY 12:44 AM [facility] Medical Records Department [address] [place] [address] Emergency Department Summary 04/30/18 1739 MR#: [id number] Acct: [id number] Name: JORGE ROQUE Rep #: [id number] : 1975 42 From: Derek Epps MD PCP: Jameson Herrera MD Status: DEP ER - ER Visit Summary Date of Service: 04/30/18 Chief Complaint: Acute on chronic right lateral abdominal pain History of Present Illness: The patient is a 42 M is post right nephrectomy secondary to renal CA. Patient's had pain since March 09 after he had nephrectomy. A recently diagnosed him with a seroma and also lateral abdominal wall hernia. He followed up with his primary care physician Dr. Herrera who placed him on Percocet for pain. He is also seeing Dr. oRcha general surgeon. Patient states that there determining the next step. He presents today complaining of the same continued pain. He denies fever or vomiting. States she has had normal bowel movements and normal urination. The pain is not change this is been constant. Physical Examination: Well-appearing middle-age male. Morbidly obese. Vital signs are stable afebrile. H EENT exam unremarkable. Lungs clear to auscultation bilaterally. Heart regular rate and rhythm no murmur. Abdomen is morbidly obese but soft. Normal bowel sounds no peritoneal signs. He has a right lateral abdominal wall tenderness there are multiple well-healed laparoscopic incisions there. This is where the previously diagnosed hernia and seroma were. There is no incarcerated or strangulated hernia at this time. He has normal bowel sounds his abdomen is soft. He is moving all 4 extremities. Neurologically is awake and alert. Test Results: I reviewed the patient's last ER visit and the CAT scan results. This today. I do not feel he needs any further imaging. Her lab work. Emergency Department Course and Treatment: He will be given 2 [place] here. A prescription for Percocet for pain 14 no refill and any further pain meds need to be obtained through his primary care physician or his surgeon. Treatment Plan: Discharged to follow-up with Dr. Johann Rocha. Disposition: Discharged Impression: Acute on chronic abdominal wall pain secondary to a seroma and right lateral abdominal wall hernia status post nephrectomy This note was generated with [employer] dictation software. It may contain incorrect words, spelling, and punctuation that were not noted in review of the chart prior to signing ED Disposition - Plan for ED Patient: Chief Complaint: Abd Pain Referrals: Jameson Herrera MD [Primary Care Provider] - What to do if you have Problems For any increased pain, shortness of breath, bleeding, nausea or vomiting, chest pain, or any unexpected problems, contact your Primary Care Provider. Call [facility] ([phone]) or report to the closest Emergency Room. Call 911 if necessary. 05/01/18 0044 <Electronically signed by Derek Epps MD> Date Derek Epps MD Cosigner Signature (If Indicated): Date CC: Jameson Herrera MD DISCHARGE INSTRUCTION Observed: 05/01/2018 Status: F Source: JESUS 12:44 AM [facility] REPOSITORY [facility] Medical Records Department [address] [place] [address] Discharge Instruction 04/30/18 1742 MR#: [id number] Acct: [id number] Name: JORGE ROQUE Rep #: [id number] : 1975 42 From: Derek Epps MD PCP: Jameson Herrera MD Status: DEP ER ED Disposition - Plan for ED Patient: Disposition: Home or Assisted Living Chief Complaint: Abd Pain Prescriptions: Oxycodone HCl/Acetaminophen [Percocet 10-325 mg Tablet] 1 tab PO Q6H PRN PRN #14 tab PRN Reason: Pain Referrals: Fartun Rocha MD [STAFF PHYSICIAN] - As soon as possible Additional Instructions: Call follow-up with Dr. Rocha. Any further pain medications must be obtained using your general surgeon or your primary care physician. What to do if you have Problems For any increased pain, shortness of breath, bleeding, nausea or vomiting, chest pain, or any unexpected problems, contact your Primary Care Provider. Call [facility] ([phone]) or report to the closest Emergency Room. Call 911 if necessary. 05/01/18 0044 <Electronically signed by Derek Epps MD> Date Derek Epps MD Cosigner Signature (If Indicated): Date CC: Jameson Herrera MD PROGRESS Observed: 04/23/2018 Status: COMPLETED Source: IVETTE 6:54 AM [facility] REPOSITORY HNO ID: [id number] Author: Fartun Rocha Service: (none) Author Type: Physician Type: Progress Notes Filed: 04/25/2018 10:18 AM Note Text: HISTORY AND PHYSICAL Jorge Roque 1975 REFERRING PHYSICIAN: Blair Alexander ([place]* CHIEF COMPLAINT: Consult (Consult Vental hernia) HPI: Jorge is a 42 year old male with a complaint of a bulge and discomfort in his prior right lateral robotic hernia incision site. The patient recently underwent a right partial nephrectomy for renal cell carcinoma. This was performed on March 09, 2018 The patient notes discomfort in this area with lifting, straining and coughing. The symptoms have increased, over the past few weeks. The patient notes no symptoms of bowel obstruction and denies nausea or vomiting. The patient was seen by the emergency room physician who felt the patient has a hernia. CT scan of the abdomen and pelvis was obtained. This demonstrated was felt to be a 9 x 5 cm soft tissue density overlying the right midabdomen, which was felt to most likely represent postoperative seroma . There was also noted to be a focal herniation. The right lateral abdominal wall with fat present . There was felt to be no evidence of fluid collection or perinephric hematoma. The patient is morbidly obese. His weight is 388 pounds. Jorge was referred for evaluation and treatment. PAST MEDICAL HISTORY Diagnosis Date - Hernia, abdominal - Hypertension - Morbid obesity (HCC) - Opioid use disorder, mild, abuse see below - Substance abuse cocaine and cannabis per counseling center notes, seeing counseling center PAST SURGICAL HISTORY Procedure Laterality Date - PAST SURGICAL HISTORY OF 03/09/2018 part of right kidney removed - REPAIR UMBILICAL IONA,5+Y/O,REDUC 3-7-13 Current Outpatient Prescriptions: hydrOXYzine HCl (ATARAX) 25 mg tablet sertraline (ZOLOFT) 50 mg tablet iv contrast (radiology procedure) CT ABD W -Inject, intravenously, once for 1 dose.No IV access, insert saline lock prior to the beginning of sedation, infusion, injection of imaging exam. Discontinue saline lock post exam. If Pt. has a central line or IVAD, may access for administration according to line specific nursing protocol. Once exam is complete flush line and de-access according to line specific nursing protocol in the CT contrast administration guidelines link. (Patient not taking: Reported on 04/06/2018 ) ketorolac (TORADOL) 10 mg tablet Take 1 tablet by mouth every 6 hours as needed. docusate sodium (COLACE) 100 mg capsule Take 1 capsule by mouth twice daily as needed. (Patient not taking: Reported on 04/06/2018 ) No current facility-administered medications for this visit. ALLERGIES: Hydrocortisone; Tramadol PERSONAL HISTORY: Social History Marital status: Spouse name: Years of education: Number of children: 2 Social History Main Topics Smoking status: Never Smoker Smokeless tobacco: Never Used Alcohol use: No Drug use: No Other Topics Concern Caffeine Concern Yes Comment:moderate use 2+ 20z bottles of soda FAMILY HISTORY: FAMILY HISTORY Problem Relation Age of Onset - Hypertension Father - Arthritis Father - Diabetes Father - obesity [OTHER] Father - Hypertension Paternal Grandmother - Heart Paternal Grandmother - Diabetes Paternal Grandmother - renal failure [OTHER] Paternal Grandmother - Hypertension Paternal Grandfather - Heart Paternal Grandfather - Diabetes Paternal Grandfather REVIEW OF SYMPTOMS: The review of systems data was entered by the nurse and reviewed by me Nursing Notes: Veronika Hastings LPN 04/22/2018 2:47 PM Signed REVIEW OF SYSTEMS: General: The patient denies fatigue, denies weight loss, denies weight gain, denies feeling hot, and denies feelings of cold. Eyes: The patient denies glaucoma, denies eye injury/surgery, does not wear glasses or contacts. Ear/Nose/Throat: The patient denies allergies, denies hayfever, denies ear infections, and denies bloody noses. Cardiovascular: The patient denies chest pain, denies heart disease, denies high blood pressure,denies cardiac stent, denies prior heart attack, denies irregular heart beat, denies high cholesterol, denies poor circulation, denies heart failure, other cardiac issues, denies claudication, denies cold feet, denies peripheral arterial stent. Respiratory: The patient denies tuberculosis, denies pneumonia, denies frequent cough, denies pulmonary embolism, denies shortness of breath, and denies coughing up blood. Gastrointestinal: The patient denies difficulty swallowing, denies acid reflux, denies ulcers, denies vomiting, denies jaundice/hepatitis, denies gallbladder problems, denies black or tarry stools, denies hemorrhoids, denies bleeding from rectum, denies diverticulitis, denies constipation, denies diarrhea, denies loss of stool control, and denies hernias. Kidney/Bladder: The patient denies kidney stones, denies urine infections, and denies bloody urine. Skin: The patient denies a history of skin cancer, denies bleeding/changing moles, and denies a history of skin rash. Neurologic: The patient denies a history of epilepsy/convulsions, denies headaches, denies head/spinal injuries, and denies stroke/TIA. Psychiatric: The patient denies psychiatric medications, NOTES depression, and denies voices, denies substance abuse. Endocrine: The patient denies thyroid disorders, denies diabetes, and denies hormonal problems. Hematologic: The patient denies a history of bruising, denies bleeding, and denies anemia, denies blood clots. Infections: The patient denies a history of measles and mumps, denies rheumatic fever, and denies sexually transmitted diseases. Musculoskeletal: The patient denies back pain/injury, denies back problems, denies sciatica, NOTES knee/foot trouble, NOTES arthritis, or denies gout. When was patient's last Mammogram screening? N/A Last Colonoscopy: nONE Veronika Hastings DIRECTOR STAFFING PHYSICAL EXAMINATION: General: The patient is 42 year old male, well nourished, well hydrated in no acute distress. The patient is oriented to time, place, and person. VITALS: Blood pressure 138/84, pulse 68, weight (!) 176 kg (388 lb). Body mass index is 59 kg/m?. HEENT: Normal cephalic, ataumatic, pupils are equally round, sclera are anicteric, mucous membranes are moist, oropharynx is clear. Neck has no masses, asymmetry or lymphadenopathy. Thyroid is unremarkable. Respiratory: Clear to auscultation and percussion. Normal respiratory excursion and pattern. Cardiac: Examination is regular rate and rhythm. Abdominal exam: Soft, nontender, with no palpable masses. No hepatosplenomegaly. The patient has multiple healing incisions consistent with a robotic hernia sites. His site of concern is on the right flank areas approximately 3 cm in length of the incision. Deep to the incision. There is approximately a 3 cm nodular feeling mass consistent with a resolving hematoma. With abdominal pressure. There is slight retrusion of the whole area without an obvious hernia. Again, the patient is morbidly obese.. Rectal exam: exam deferred Extremities: no clubbing, cyanosis or edema. No adenopathy. Other: LABORATORY VALUES: As Noted RADIOLOGIC STUDIES: As Noted - ultrasound was performed in an attempt to to evaluate dynamically for hernia. 2. The depth of an ultrasound probe. No hernia was noted. PROCEDURE: INJECTION OF LOCAL/STEROID The risks, benefits and anticipated outcomes of the procedure, the risks and benefits of the alternatives to the procedure, and the roles and tasks of the personnel to be involved, were discussed with the patient, and the patient consents to the procedure and agrees to proceed. After consent was obtained and the site, person, and procedure verified, the patient`s skin was prepped and draped in the usual fashion. A combination of Lidocaine and Marcaine along with 10mg of Kenalog was injected into the skin. This gave partial pain relief. The patient tolerated the procedure well. Assessment IMPRESSION: Questionable hematoma versus incisional hernia, right lateral incisional port site-morbid obesity PLAN: My plan is to review the CT scan. Unfortunately, [facility] computer system is currently unavailable and images cannot be reviewed directly. My plan is to review this imaging and assess if he does have a deeper hernia. By review of the report, it sounds that this may be between layers of his oblique musculature. My findings have been communicated to Dr. Jameson Herrera MD via shared medical record. This note will be forwarded to Dr. Jameson Herrera MD. Diagnoses: (R10.9) Right flank pain (primary encounter diagnosis) (E66.01) Morbid obesity (HCC) (K43.2) Incisional hernia, without obstruction or gangrene Return to Clinic: The patient is instructed to follow-up with me in 1 month. Addendum-CT images were able to reviewed. There definitely appears to be an extrafascial hematoma. There may be an incisional hernia near that port site versus a degree of muscular atrophy postsurgically. I would recommend when the patient returns and assuming that the hematoma has resolved by that point in time - sitter repeat CT scan to assess stability of the area Fartun Rocha MD CNOV Observed: 04/22/2018 Status: COMPLETED Source: [place] 1:40 PM [facility] REPOSITORY Office Visit (GENSWS) JORGE ROQUE ([id number]) 1975 M Date Time Provider Department 04/22/18 1:40 PM FARTUN ROCHA GENSWS During your visit today, we recorded the following information about you: Pulse Blood pressure Weight 68/minute 138/84 176 kg Veronika Hastings JANETT 04/22/2018 2:47 PM Signed REVIEW OF SYSTEMS: General: The patient denies fatigue, denies weight loss, denies weight gain, denies feeling hot, and denies feelings of cold. Eyes: The patient denies glaucoma, denies eye injury/surgery, does not wear glasses or contacts. Ear/Nose/Throat: The patient denies allergies, denies hayfever, denies ear infections, and denies bloody noses. Cardiovascular: The patient denies chest pain, denies heart disease, denies high blood pressure,denies cardiac stent, denies prior heart attack, denies irregular heart beat, denies high cholesterol, denies poor circulation, denies heart failure, other cardiac issues, denies claudication, denies cold feet, denies peripheral arterial stent. Respiratory: The patient denies tuberculosis, denies pneumonia, denies frequent cough, denies pulmonary embolism, denies shortness of breath, and denies coughing up blood. Gastrointestinal: The patient denies difficulty swallowing, denies acid reflux, denies ulcers, denies vomiting, denies jaundice/hepatitis, denies gallbladder problems, denies black or tarry stools, denies hemorrhoids, denies bleeding from rectum, denies diverticulitis, denies constipation, denies diarrhea, denies loss of stool control, and denies hernias. Kidney/Bladder: The patient denies kidney stones, denies urine infections, and denies bloody urine. Skin: The patient denies a history of skin cancer, denies bleeding/changing moles, and denies a history of skin rash. Neurologic: The patient denies a history of epilepsy/convulsions, denies headaches, denies head/spinal injuries, and denies stroke/TIA. Psychiatric: The patient denies psychiatric medications, NOTES depression, and denies voices, denies substance abuse. Endocrine: The patient denies thyroid disorders, denies diabetes, and denies hormonal problems. Hematologic: The patient denies a history of bruising, denies bleeding, and denies anemia, denies blood clots. Infections: The patient denies a history of measles and mumps, denies rheumatic fever, and denies sexually transmitted diseases. Musculoskeletal: The patient denies back pain/injury, denies back problems, denies sciatica, NOTES knee/foot trouble, NOTES arthritis, or denies gout. When was patient's last Mammogram screening? N/A Last Colonoscopy: nONE Veronika Rocha MD 04/25/2018 10:18 AM Addendum HISTORY AND PHYSICAL Jorge Whittaker Mya 1975 REFERRING PHYSICIAN: Blair Alexander (AlysonC* CHIEF COMPLAINT: Consult (Consult Vental hernia) HPI: Jorge is a 42 year old male with a complaint of a bulge and discomfort in his prior right lateral robotic hernia incision site. The patient recently underwent a right partial nephrectomy for renal cell carcinoma. This was performed on March 09, 2018 The patient notes discomfort in this area with lifting, straining and coughing. The symptoms have increased, over the past few weeks. The patient notes no symptoms of bowel obstruction and denies nausea or vomiting. The patient was seen by the emergency room physician who felt the patient has a hernia. CT scan of the abdomen and pelvis was obtained. This demonstrated was felt to be a 9 x 5 cm soft tissue density overlying the right midabdomen, which was felt to most likely represent postoperative seroma . There was also noted to be a focal herniation. The right lateral abdominal wall with fat present . There was felt to be no evidence of fluid collection or perinephric hematoma. The patient is morbidly obese. His weight is 388 pounds. oJrge was referred for evaluation and treatment. PAST MEDICAL HISTORY Diagnosis Date - Hernia, abdominal - Hypertension - Morbid obesity (HCC) - Opioid use disorder, mild, abuse see below - Substance abuse cocaine and cannabis per counseling center notes, seeing counseling center PAST SURGICAL HISTORY Procedure Laterality Date - PAST SURGICAL HISTORY OF 03/09/2018 part of right kidney removed - REPAIR UMBILICAL IONA,5+Y/O,REDUC 3-7-13 Current Outpatient Prescriptions: hydrOXYzine HCl (ATARAX) 25 mg tablet sertraline (ZOLOFT) 50 mg tablet iv contrast (radiology procedure) CT ABD W -Inject, intravenously, once for 1 dose.No IV access, insert saline lock prior to the beginning of sedation, infusion, injection of imaging exam. Discontinue saline lock post exam. If Pt. has a central line or IVAD, may access for administration according to line specific nursing protocol. Once exam is complete flush line and de-access according to line specific nursing protocol in the CT contrast administration guidelines link. (Patient not taking: Reported on 04/06/2018 ) ketorolac (TORADOL) 10 mg tablet Take 1 tablet by mouth every 6 hours as needed. docusate sodium (COLACE) 100 mg capsule Take 1 capsule by mouth twice daily as needed. (Patient not taking: Reported on 04/06/2018 ) No current facility-administered medications for this visit. ALLERGIES: Hydrocortisone; Tramadol PERSONAL HISTORY: Social History Marital status: Spouse name: Years of education: Number of children: 2 Social History Main Topics Smoking status: Never Smoker Smokeless tobacco: Never Used Alcohol use: No Drug use: No Other Topics Concern Caffeine Concern Yes Comment:moderate use 2+ 20z bottles of soda FAMILY HISTORY: FAMILY HISTORY Problem Relation Age of Onset - Hypertension Father - Arthritis Father - Diabetes Father - obesity [OTHER] Father - Hypertension Paternal Grandmother - Heart Paternal Grandmother - Diabetes Paternal Grandmother - renal failure [OTHER] Paternal Grandmother - Hypertension Paternal Grandfather - Heart Paternal Grandfather - Diabetes Paternal Grandfather REVIEW OF SYMPTOMS: The review of systems data was entered by the nurse and reviewed by ak Nursing Notes: Veronika Hastings LPN 04/22/2018 2:47 PM Signed REVIEW OF SYSTEMS: General: The patient denies fatigue, denies weight loss, denies weight gain, denies feeling hot, and denies feelings of cold. Eyes: The patient denies glaucoma, denies eye injury/surgery, does not wear glasses or contacts. Ear/Nose/Throat: The patient denies allergies, denies hayfever, denies ear infections, and denies bloody noses. Cardiovascular: The patient denies chest pain, denies heart disease, denies high blood pressure,denies cardiac stent, denies prior heart attack, denies irregular heart beat, denies high cholesterol, denies poor circulation, denies heart failure, other cardiac issues, denies claudication, denies cold feet, denies peripheral arterial stent. Respiratory: The patient denies tuberculosis, denies pneumonia, denies frequent cough, denies pulmonary embolism, denies shortness of breath, and denies coughing up blood. Gastrointestinal: The patient denies difficulty swallowing, denies acid reflux, denies ulcers, denies vomiting, denies jaundice/hepatitis, denies gallbladder problems, denies black or tarry stools, denies hemorrhoids, denies bleeding from rectum, denies diverticulitis, denies constipation, denies diarrhea, denies loss of stool control, and denies hernias. Kidney/Bladder: The patient denies kidney stones, denies urine infections, and denies bloody urine. Skin: The patient denies a history of skin cancer, denies bleeding/changing moles, and denies a history of skin rash. Neurologic: The patient denies a history of epilepsy/convulsions, denies headaches, denies head/spinal injuries, and denies stroke/TIA. Psychiatric: The patient denies psychiatric medications, NOTES depression, and denies voices, denies substance abuse. Endocrine: The patient denies thyroid disorders, denies diabetes, and denies hormonal problems. Hematologic: The patient denies a history of bruising, denies bleeding, and denies anemia, denies blood clots. Infections: The patient denies a history of measles and mumps, denies rheumatic fever, and denies sexually transmitted diseases. Musculoskeletal: The patient denies back pain/injury, denies back problems, denies sciatica, NOTES knee/foot trouble, NOTES arthritis, or denies gout. When was patient's last Mammogram screening? N/A Last Colonoscopy: nONE Veronika Hastings LPN PHYSICAL EXAMINATION: General: The patient is 42 year old male, well nourished, well hydrated in no acute distress. The patient is oriented to time, place, and person. VITALS: Blood pressure 138/84, pulse 68, weight (!) 176 kg (388 lb). Body mass index is 59 kg/m?. HEENT: Normal cephalic, ataumatic, pupils are equally round, sclera are anicteric, mucous membranes are moist, oropharynx is clear. Neck has no masses, asymmetry or lymphadenopathy. Thyroid is unremarkable. Respiratory: Clear to auscultation and percussion. Normal respiratory excursion and pattern. Cardiac: Examination is regular rate and rhythm. Abdominal exam: Soft, nontender, with no palpable masses. No hepatosplenomegaly. The patient has multiple healing incisions consistent with a robotic hernia sites. His site of concern is on the right flank areas approximately 3 cm in length of the incision. Deep to the incision. There is approximately a 3 cm nodular feeling mass consistent with a resolving hematoma. With abdominal pressure. There is slight retrusion of the whole area without an obvious hernia. Again, the patient is morbidly obese.. Rectal exam: exam deferred Extremities: no clubbing, cyanosis or edema. No adenopathy. Other: LABORATORY VALUES: As Noted RADIOLOGIC STUDIES: As Noted - ultrasound was performed in an attempt to to evaluate dynamically for hernia. 2. The depth of an ultrasound probe. No hernia was noted. PROCEDURE: INJECTION OF LOCAL/STEROID The risks, benefits and anticipated outcomes of the procedure, the risks and benefits of the alternatives to the procedure, and the roles and tasks of the personnel to be involved, were discussed with the patient, and the patient consents to the procedure and agrees to proceed. After consent was obtained and the site, person, and procedure verified, the patient`s skin was prepped and draped in the usual fashion. A combination of Lidocaine and Marcaine along with 10mg of Kenalog was injected into the skin. This gave partial pain relief. The patient tolerated the procedure well. Assessment IMPRESSION: Questionable hematoma versus incisional hernia, right lateral incisional port site-morbid obesity PLAN: My plan is to review the CT scan. Unfortunately, [facility] computer system is currently unavailable and images cannot be reviewed directly. My plan is to review this imaging and assess if he does have a deeper hernia. By review of the report, it sounds that this may be between layers of his oblique musculature. My findings have been communicated to Dr. Jameson Herrera MD via shared medical record. This note will be forwarded to Dr. Jameson Herrera MD. Diagnoses: (R10.9) Right flank pain (primary encounter diagnosis) (E66.01) Morbid obesity (HCC) (K43.2) Incisional hernia, without obstruction or gangrene Return to Clinic: The patient is instructed to follow-up with me in 1 month. Addendum-CT images were able to reviewed. There definitely appears to be an extrafascial hematoma. There may be an incisional hernia near that port site versus a degree of muscular atrophy postsurgically. I would recommend when the patient returns and assuming that the hematoma has resolved by that point in time - sitter repeat CT scan to assess stability of the area Fartun Rocha MD Referring Provider: Blair ALEXANDER (NAHUM) [[id number]] Allergies As of Date: 04/22/2018 Noted Allergy Reaction HYDROCORTISONE 04/22/2018 2 - Rash Comments: topical TRAMADOL 04/22/2018 8 - GI Upset Date Reviewed: 04/22/2018 Reviewed by: Valeriano Bhakta LPN - Fully Assessed Reason for Visit: Consult [173] Cmt: Consult Vental hernia Reason For Visit History Recorded Primary Visit Diagnosis:Right flank pain [R10.9] Other Visit Diagnoses:Morbid obesity (HCC) [E66.01] Incisional hernia, without obstruction or gangrene [K43.2] Prescriptions as of 04/22/2018 Sig: HYDROXYZINE HCL 25 MG TABLET SERTRALINE 50 MG TABLET IV CONTRAST (RADIOLOGY PROCED* CT ABD W -Inject, intravenous* Patient not taking: Reported on 04/06/2018 KETOROLAC 10 MG TABLET Take 1 tablet by mouth every * DOCUSATE SODIUM 100 MG CAPSULE Take 1 capsule by mouth twice* Patient not taking: Reported on 04/06/2018 Medication notes this encounter KETOROLAC 10 MG TABLET >> Valeriano Bhakta LPN 04/22/2018 1:33 PM >> VALERIANO BHAKTA LPN FriApr 22, 2018 1:33 PM course of therapy completed Problem List As Of Date 04/22/2018 Noted Resolved Hypertension [I10] INVALID FOR* Left knee pain [M25.562] INVALID FOR* Patellar tendinitis [M76.50] INVALID FOR* Morbid obesity [E66.01] INVALID FOR* Right renal mass [N28.89] INVALID FOR* Obesity, Class III, BMI >= 40 E66.01 [E66.01] INVALID FOR* Renal mass, right [N28.89] INVALID FOR* Malignant neoplasm of right kidney, except bean*INVALID FOR* Visit Notes: >> Veronika Hastings JANETT FriApr 22, 2018 2:46 PM Status: Signed REVIEW OF SYSTEMS: General: The patient denies fatigue, denies weight loss, denies weight gain, denies feeling hot, and denies feelings of cold. Eyes: The patient denies glaucoma, denies eye injury/surgery, does not wear glasses or contacts. Ear/Nose/Throat: The patient denies allergies, denies hayfever, denies ear infections, and denies bloody noses. Cardiovascular: The patient denies chest pain, denies heart disease, denies high blood pressure,denies cardiac stent, denies prior heart attack, denies irregular heart beat, denies high cholesterol, denies poor circulation, denies heart failure, other cardiac issues, denies claudication, denies cold feet, denies peripheral arterial stent. Respiratory: The patient denies tuberculosis, denies pneumonia, denies frequent cough, denies pulmonary embolism, denies shortness of breath, and denies coughing up blood. Gastrointestinal: The patient denies difficulty swallowing, denies acid reflux, denies ulcers, denies vomiting, denies jaundice/hepatitis, denies gallbladder problems, denies black or tarry stools, denies hemorrhoids, denies bleeding from rectum, denies diverticulitis, denies constipation, denies diarrhea, denies loss of stool control, and denies hernias. Kidney/Bladder: The patient denies kidney stones, denies urine infections, and denies bloody urine. Skin: The patient denies a history of skin cancer, denies bleeding/changing moles, and denies a history of skin rash. Neurologic: The patient denies a history of epilepsy/convulsions, denies headaches, denies head/spinal injuries, and denies stroke/TIA. Psychiatric: The patient denies psychiatric medications, NOTES depression, and denies voices, denies substance abuse. Endocrine: The patient denies thyroid disorders, denies diabetes, and denies hormonal problems. Hematologic: The patient denies a history of bruising, denies bleeding, and denies anemia, denies blood clots. Infections: The patient denies a history of measles and mumps, denies rheumatic fever, and denies sexually transmitted diseases. Musculoskeletal: The patient denies back pain/injury, denies back problems, denies sciatica, NOTES knee/foot trouble, NOTES arthritis, or denies gout. When was patient's last Mammogram screening? N/A Last Colonoscopy: nONE Veronikajavid Hastings JANETT Follow-up and Disposition History Recorded Encounter Status:Closed by FARTUN ROCHA MD on 04/23/18 PROGRESS Observed: 04/14/2018 Status: COMPLETED Source: [place] 12:52 PM [facility] REPOSITORY O ID: [id number] Author: Blair Steiner (AlysonC) Benjamin Service: (none) Author Type: Physician Keying Machine Operator Type: Progress Notes Filed: 04/14/2018 3:39 PM Note Text: 42 year old male with c/o pain in RLQ abdomen since partial Nephrectomy 03/09/18, bx + for clear cell renal cancer. Was seen in [facility] a week in ER: told muscle wall ripped and has a hernia. Report retrieved. CT 04/02/18 demonstrates fat herniation in right lateral abdominal wall and a 9.4cm x 4.8cm Soft tissue density likely representing a post-surgical seroma. When to [facility], sent to pain management. Started pain management. No fever or chills. Appetite normal. Eating smaller portions 4-5 times a day. Has lost 20lbs since surgery. Hurts at night. Bowels daily, normal stool: brown, formed. No black or tarry stools. No N/V/D/C. Last few days testicles have been aching/ sharp pain. Not today. HISTORIES FAMILY HISTORY Problem Relation Age of Onset - Hypertension Father - Arthritis Father - Diabetes Father - obesity [OTHER] Father - Hypertension Paternal Grandmother - Heart Paternal Grandmother - Diabetes Paternal Grandmother - renal failure [OTHER] Paternal Grandmother - Hypertension Paternal Grandfather - Heart Paternal Grandfather - Diabetes Paternal Grandfather PAST MEDICAL HISTORY Diagnosis Date - Hernia, abdominal - Hypertension - Morbid obesity (HCC) - Opioid use disorder, mild, abuse see below - Substance abuse cocaine and cannabis per counseling center notes, seeing counseling center PAST SURGICAL HISTORY Procedure Laterality Date - PAST SURGICAL HISTORY OF 03/09/2018 part of right kidney removed - REPAIR UMBILICAL IONA,5+Y/O,REDUC 3-7-13 Social History Marital status: Spouse name: Years of education: Number of children: 2 Social History Main Topics Smoking status: Never Smoker Smokeless tobacco: Never Used Alcohol use: No Drug use: No Other Topics Concern Caffeine Concern Yes Comment:moderate use 2+ 20z bottles of soda ACTIVE PROBLEM LIST Hypertension Left Knee Pain Patellar Tendinitis Morbid Obesity (Hcc) Right Renal Mass Obesity, Class III, BMI >= 40 E66.01 Renal Mass, Right Malignant Neoplasm of Right Kidney, Except Renal Pelvis (Hcc) Current Outpatient Prescriptions: hydrOXYzine HCl (ATARAX) 25 mg tablet Disp: Rfl: sertraline (ZOLOFT) 50 mg tablet Disp: Rfl: iv contrast (radiology procedure) CT ABD W -Inject, intravenously, once for 1 dose.No IV access, insert saline lock prior to the beginning of sedation, infusion, injection of imaging exam. Discontinue saline lock post exam. If Pt. has a central line or IVAD, may access for administration according to line specific nursing protocol. Once exam is complete flush line and de-access according to line specific nursing protocol in the CT contrast administration guidelines link. (Patient not taking: Reported on 04/06/2018 ) Disp: 1 Each Rfl: 0 ketorolac (TORADOL) 10 mg tablet Take 1 tablet by mouth every 6 hours as needed. (Patient not taking: Reported on 04/06/2018 ) Disp: 40 tablet Rfl: 0 docusate sodium (COLACE) 100 mg capsule Take 1 capsule by mouth twice daily as needed. (Patient not taking: Reported on 04/06/2018 ) Disp: 30 capsule Rfl: 0 No current facility-administered medications for this visit. DTAP,TDAP,TD(1 - Tdap) due on 1994 EXAM: BP 132/88 (BP Site: Right Arm, BP Position: Sitting, BP Cuff Size: Large Adult) Pulse 72 Wt (!) 171.6 kg (378 lb 6.4 oz) BMI 57.54 kg/m? Pleasant morbidly obese male in no acute distress. Alert and oriented all spheres. Normal affect and cognition. Speech normal. No deficits to learning or comprehension. Skin warm, dry, pink to lips and nailbeds. Normal turgor. Respirations regular and unlabored. Chest CTA. HRRR without murmur or gallop. Abd: grossly obese making exam difficult, bowel sounds active. No pulsatile masses. Tender RLQ over area between incision sites. Firm area palpable, very tender but no rebound, guarding, or peritoneal signs. No masses. No organomegaly. Arguelles's punch: negative. No flank pain. No inguinal or axillary lymphadenopathy. Genitalia: penis retractile, testicles descended without nodules, non-tender. No hernias. Extrem: no clubbing, cyanosis, edema. Extremities are warm and pink with prompt capillary refill. ASSESSMENT/PLAN: 1. Abdominal wall hernia - ICD9: 553.20, ICD10: K43.9 (primary diagnosis) Pain is moderate - CONSULT TO GENERAL SURGERY - OXYCODONE-ACETAMINOPHEN 10 MG-325 MG TABLET 2. RLQ abdominal pain - ICD9: 789.03, ICD10: R10.31 - CONSULT TO GENERAL SURGERY 3. Morbid obesity (HCC) - ICD9: 278.01, ICD10: E66.01 Improving weight: congratulated. NAHUM GarciaOV Observed: 04/14/2018 Status: COMPLETED Source: [place] 12:40 PM [facility] REPOSITORY Office Visit (FAMPWS) JORGE ROQUE ([id number]) 1975 M Date Time Provider Department 04/14/18 12:40 PM Blair ALEXANDER) FAMPWS During your visit today, we recorded the following information about you: Pulse Blood pressure Weight 72/minute 132/88 171.6 kg Blair Alexander PA-C 04/14/2018 3:39 PM Signed 42 year old male with c/o pain in RLQ abdomen since partial Nephrectomy 03/09/18, bx + for clear cell renal cancer. Was seen in [facility] a week in ER: told muscle wall ripped and has a hernia. Report retrieved. CT 04/02/18 demonstrates fat herniation in right lateral abdominal wall and a 9.4cm x 4.8cm Soft tissue density likely representing a post-surgical seroma. When to [facility], sent to pain management. Started pain management. No fever or chills. Appetite normal. Eating smaller portions 4-5 times a day. Has lost 20lbs since surgery. Hurts at night. Bowels daily, normal stool: brown, formed. No black or tarry stools. No N/V/D/C. Last few days testicles have been aching/ sharp pain. Not today. HISTORIES FAMILY HISTORY Problem Relation Age of Onset - Hypertension Father - Arthritis Father - Diabetes Father - obesity [OTHER] Father - Hypertension Paternal Grandmother - Heart Paternal Grandmother - Diabetes Paternal Grandmother - renal failure [OTHER] Paternal Grandmother - Hypertension Paternal Grandfather - Heart Paternal Grandfather - Diabetes Paternal Grandfather PAST MEDICAL HISTORY Diagnosis Date - Hernia, abdominal - Hypertension - Morbid obesity (HCC) - Opioid use disorder, mild, abuse see below - Substance abuse cocaine and cannabis per counseling center notes, seeing counseling center PAST SURGICAL HISTORY Procedure Laterality Date - PAST SURGICAL HISTORY OF 03/09/2018 part of right kidney removed - REPAIR UMBILICAL IONA,5+Y/O,REDUC 3-7-13 Social History Marital status: Spouse name: Years of education: Number of children: 2 Social History Main Topics Smoking status: Never Smoker Smokeless tobacco: Never Used Alcohol use: No Drug use: No Other Topics Concern Caffeine Concern Yes Comment:moderate use 2+ 20z bottles of soda ACTIVE PROBLEM LIST Hypertension Left Knee Pain Patellar Tendinitis Morbid Obesity (Hcc) Right Renal Mass Obesity, Class III, BMI >= 40 E66.01 Renal Mass, Right Malignant Neoplasm of Right Kidney, Except Renal Pelvis (Hcc) Current Outpatient Prescriptions: hydrOXYzine HCl (ATARAX) 25 mg tablet Disp: Rfl: sertraline (ZOLOFT) 50 mg tablet Disp: Rfl: iv contrast (radiology procedure) CT ABD W -Inject, intravenously, once for 1 dose.No IV access, insert saline lock prior to the beginning of sedation, infusion, injection of imaging exam. Discontinue saline lock post exam. If Pt. has a central line or IVAD, may access for administration according to line specific nursing protocol. Once exam is complete flush line and de-access according to line specific nursing protocol in the CT contrast administration guidelines link. (Patient not taking: Reported on 04/06/2018 ) Disp: 1 Each Rfl: 0 ketorolac (TORADOL) 10 mg tablet Take 1 tablet by mouth every 6 hours as needed. (Patient not taking: Reported on 04/06/2018 ) Disp: 40 tablet Rfl: 0 docusate sodium (COLACE) 100 mg capsule Take 1 capsule by mouth twice daily as needed. (Patient not taking: Reported on 04/06/2018 ) Disp: 30 capsule Rfl: 0 No current facility-administered medications for this visit. DTAP,TDAP,TD(1 - Tdap) due on 1994 EXAM: BP 132/88 (BP Site: Right Arm, BP Position: Sitting, BP Cuff Size: Large Adult) Pulse 72 Wt (!) 171.6 kg (378 lb 6.4 oz) BMI 57.54 kg/m? Pleasant morbidly obese male in no acute distress. Alert and oriented all spheres. Normal affect and cognition. Speech normal. No deficits to learning or comprehension. Skin warm, dry, pink to lips and nailbeds. Normal turgor. Respirations regular and unlabored. Chest CTA. HRRR without murmur or gallop. Abd: grossly obese making exam difficult, bowel sounds active. No pulsatile masses. Tender RLQ over area between incision sites. Firm area palpable, very tender but no rebound, guarding, or peritoneal signs. No masses. No organomegaly. Arguelles's punch: negative. No flank pain. No inguinal or axillary lymphadenopathy. Genitalia: penis retractile, testicles descended without nodules, non-tender. No hernias. Extrem: no clubbing, cyanosis, edema. Extremities are warm and pink with prompt capillary refill. ASSESSMENT/PLAN: 1. Abdominal wall hernia - ICD9: 553.20, ICD10: K43.9 (primary diagnosis) Pain is moderate - CONSULT TO GENERAL SURGERY - OXYCODONE-ACETAMINOPHEN 10 MG-325 MG TABLET 2. RLQ abdominal pain - ICD9: 789.03, ICD10: R10.31 - CONSULT TO GENERAL SURGERY 3. Morbid obesity (HCC) - ICD9: 278.01, ICD10: E66.01 Improving weight: congratulated. NAHUM Garcia PA-C 04/14/2018 1:22 PM Signed Percocet as directed per prescription for pain being careful to limit to 1-2 doses a day unless it is more severe pain. Do not drive or operate dangerous machinery while on this medication. It may cause drowsiness or impair judgment and cause increased risk for falls. This medication may be habit forming if used regularly, and may cause drowsiness, so use caution. This medication may cause constipation so increase fiber and exercise if possible. Stimulant laxatives such as pericolace or Sennekot OTC may help if needed but should not be used over long periods. You have been given a referral for surgical evaluation: please refer to the appointment reminder sheet. Referring Provider: SELF [[id number]] Allergies As of Date: 04/14/2018 (No Known Allergies) Date Reviewed: 04/14/2018 Reviewed by: Real Leblanc LPN - Fully Assessed Reason for Visit: Abdominal Pain [1] Cmt: abodminal pain Primary Visit Diagnosis:Abdominal wall hernia [K43.9] Comment:right side, post nephrectomy Other Visit Diagnoses:RLQ abdominal pain [R10.31] Morbid obesity (HCC) [E66.01] Order(s):CONSULT TO GENERAL SURGERY [9015] Order #: [id number]: 1 oxyCODONE-acetaminophen (PERCOCET) 10-325 mg tabletTake 1 tablet by mouth every 6 hours as needed for Pain for up to 7 days.Disp: 42 tabletRfl: 0 Prescriptions as of 04/14/2018 Sig: HYDROXYZINE HCL 25 MG TABLET SERTRALINE 50 MG TABLET OXYCODONE-ACETAMINOPHEN 10 MG* Take 1 tablet by mouth every * IV CONTRAST (RADIOLOGY PROCED* CT ABD W -Inject, intravenous* Patient not taking: Reported on 04/06/2018 KETOROLAC 10 MG TABLET Take 1 tablet by mouth every * Patient not taking: Reported on 04/06/2018 DOCUSATE SODIUM 100 MG CAPSULE Take 1 capsule by mouth twice* Patient not taking: Reported on 04/06/2018 Problem List As Of Date 04/14/2018 Noted Resolved Hypertension [I10] INVALID FOR* Left knee pain [M25.562] INVALID FOR* Patellar tendinitis [M76.50] INVALID FOR* Morbid obesity [E66.01] INVALID FOR* Right renal mass [N28.89] INVALID FOR* Obesity, Class III, BMI >= 40 E66.01 [E66.01] INVALID FOR* Renal mass, right [N28.89] INVALID FOR* Malignant neoplasm of right kidney, except bean*INVALID FOR* Other instructions from your clinician: Percocet as directed per prescription for pain being careful to limit to 1-2 doses a day unless it is more severe pain. Do not drive or operate dangerous machinery while on this medication. It may cause drowsiness or impair judgment and cause increased risk for falls. This medication may be habit forming if used regularly, and may cause drowsiness, so use caution. This medication may cause constipation so increase fiber and exercise if possible. Stimulant laxatives such as pericolace or Sennekot OTC may help if needed but should not be used over long periods. You have been given a referral for surgical evaluation: please refer to the appointment reminder sheet. Prescriptions ordered this encounter Disp Refills Start End OXYCODONE-ACETAMINOPHEN 10 MG-325 MG* 42 t* 0 04/14/2018 04/21/2018 Class: Print RX Route: ORAL Sig: Take 1 tablet by mouth every 6 hours as needed for Pain for up to 7 days. Encounter Status:Closed by Blair ALEXANDER PA-C on 04/14/18 DANK Observed: 04/10/2018 Status: COMPLETED Source: [place] 12:00 AM [facility] REPOSITORY Telephone (UROLWS) JORGE ROQUE ([id number]) 1975 M Date Time Provider Department 04/10/18 DELMAR MENARD) UROLWS During your visit today, we recorded the following information about you: Valeriano Bhakta JANETT 04/10/2018 1:22 PM Signed Pt called expressing frustration getting pain medication. He notes that he has been back and forth With Saeid Menard, Dr Koenig and Dr Flaherty. He expressed concern regarding his hernia which he notes was evidenced on recent CT scan. Pt stated his next call will be an insurance defense attorney. Attempted to offer ombudsman information, but pt hung up Yusuf Fajardo DO, MBA, 04/10/2018 7:29 PM Signed There is no evidence of hernia on my examination He states he had a CT scan done at [place] - but no results available. Could you please get the CT scan report and disc for me? Thanks Yusuf Fajardo DO, MBA, DO 04/14/2018 1:18 PM Signed Thank you for the report It seems that the hernia was a chronic issue that he had prior to surgery He will need repeat imaging as scheduled in 3-6 months We will need to continue pain management follow-up Real Alcaraz Ma 04/21/2018 12:19 PM Signed Has appointment for hernia evaluation with Dr. Rocha. 04/22. Real Alcaraz Ma Allergies As of Date: 04/10/2018 (No Known Allergies) Date Reviewed: 04/09/2018 Reviewed by: Yusuf Fajardo DO - Fully Assessed Reason for Visit: Medication Request [138] Prescriptions as of 04/10/2018 Sig: IV CONTRAST (RADIOLOGY PROCED* CT ABD W -Inject, intravenous* Patient not taking: Reported on 04/06/2018 KETOROLAC 10 MG TABLET Take 1 tablet by mouth every * Patient not taking: Reported on 04/06/2018 DOCUSATE SODIUM 100 MG CAPSULE Take 1 capsule by mouth twice* Patient not taking: Reported on 04/06/2018 HYDROXYZINE HCL 25 MG TABLET SERTRALINE 50 MG TABLET Problem List As Of Date 04/10/2018 Noted Resolved Hypertension [I10] INVALID FOR* Left knee pain [M25.562] INVALID FOR* Patellar tendinitis [M76.50] INVALID FOR* Morbid obesity [E66.01] INVALID FOR* Right renal mass [N28.89] INVALID FOR* Obesity, Class III, BMI >= 40 E66.01 [E66.01] INVALID FOR* Renal mass, right [N28.89] INVALID FOR* Malignant neoplasm of right kidney, except bean*INVALID FOR* Follow-up and Disposition History Recorded Encounter Status:Closed by YUSUF FAJARDO DO, MBA on 04/10/18 PROGRESS Observed: 04/09/2018 Status: COMPLETED Source: [place] 10:44 AM [facility] [place] REPOSITORY HNO ID: [id number] Author: Yusuf Fajardo DO Service: (none) Author Type: Physician Type: Progress Notes Filed: 04/09/2018 10:49 AM Note Text: [facility] POST-OPERATIVE PATIENT CC: Patient is here for post op. HPI: This is a 42 year old male who is status post ROBOTIC PARTIAL NEPHRECTOMY, Right on 03/09/18. Patient's post-op status is good. Some pain Very obese Smoking Status Reviewed: Yes DISPOSITION: Pain Assessment: Are you currently having pain? No 0 on a scale of 0 to 10 Wounds: Healed Bowels: normal Activity: limited Fluid Intake: normal PATHOLOGY: FINAL DIAGNOSIS: KIDNEY, RIGHT, PARTIAL NEPHRECTOMY - CLEAR CELL RENAL CELL CARCINOMA, WHO/ISUP GRADE 2, CONFINED TO KIDNEY. TUMOR SIZE: ?3 CM IN GREATEST DIMENSION. MARGINS NEGATIVE FOR TUMOR. 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 Kidney Cancer Case Summary Procedure: ? ?Partial nephrectomy. Specimen laterality: ?Right. Tumor size: ? ?3 x 2.7 x 2.7 cm. Tumor focality: ? Unifocal. Histologic type: ? Clear cell renal cell carcinoma. Sarcomatoid features: ?Not identified. Rhabdoid features: ?Not identified. Histologic grade: ? WHO/ISUP grade 2. Tumor necrosis: ? Not identified. Tumor extension: ? Tumor limited to kidney. Margins: ? ?Uninvolved by invasive carcinoma. Regional lymph nodes:??Not sampled. Pathologic stage: ? pT1a. PROCEDURE: Robotic right partial nephrectomy ASSESSMENT/PLAN: T1a RCC S/P robotic partial nephrectomy No evidence of hernia present Chronic pain Very obese Weight loss Pain management with Dr. Karthik Santos for pain meds Yusuf Fajardo DO EDMUND CNOV Observed: 04/09/2018 Status: COMPLETED Source: [place] 9:45 AM [facility] REPOS[facility] Office Visit (UROLMD) JORGE ROQUE ([id number]) 1975 M Date Time Provider Department 04/09/18 9:45 AM SCOTTY, JAYRAM UROLMD During your visit today, we recorded the following information about you: Weight Height 174.2 kg 1.727 m Flaquita Barker Ri 04/09/2018 10:03 AM Signed Patient presents with: Post Op: DOS 03/09/2018,Right Partial Nephrectomy Yusuf Fajardo DO, MBA, DO 04/09/2018 10:49 AM Signed [facility] POST-OPERATIVE PATIENT CC: Patient is here for post op. HPI: This is a 42 year old male who is status post ROBOTIC PARTIAL NEPHRECTOMY, Right on 03/09/18. Patient's post-op status is good. Some pain Very obese Smoking Status Reviewed: Yes DISPOSITION: Pain Assessment: Are you currently having pain? No 0 on a scale of 0 to 10 Wounds: Healed Bowels: normal Activity: limited Fluid Intake: normal PATHOLOGY: FINAL DIAGNOSIS: KIDNEY, RIGHT, PARTIAL NEPHRECTOMY - CLEAR CELL RENAL CELL CARCINOMA, WHO/ISUP GRADE 2, CONFINED TO KIDNEY. TUMOR SIZE: ?3 CM IN GREATEST DIMENSION. MARGINS NEGATIVE FOR TUMOR. 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 Kidney Cancer Case Summary Procedure: ? ?Partial nephrectomy. Specimen laterality: ?Right. Tumor size: ? ?3 x 2.7 x 2.7 cm. Tumor focality: ? Unifocal. Histologic type: ? Clear cell renal cell carcinoma. Sarcomatoid features: ?Not identified. Rhabdoid features: ?Not identified. Histologic grade: ? WHO/ISUP grade 2. Tumor necrosis: ? Not identified. Tumor extension: ? Tumor limited to kidney. Margins: ? ?Uninvolved by invasive carcinoma. Regional lymph nodes:??Not sampled. Pathologic stage: ? pT1a. PROCEDURE: Robotic right partial nephrectomy ASSESSMENT/PLAN: T1a RCC S/P robotic partial nephrectomy No evidence of hernia present Chronic pain Very obese Weight loss Pain management with Dr. Karthik Santos for pain meds Yusuf Fajardo DO MBA Referring Provider: JAMESON HERRERA [[id number]] Allergies As of Date: 04/09/2018 (No Known Allergies) Date Reviewed: 04/09/2018 Reviewed by: Yusuf Fajardo DO - Fully Assessed Reason for Visit: Post Op [174] Cmt: DOS 03/09/2018,Right Partial Nephrectomy Primary Visit Diagnosis:Malignant neoplasm of right kidney, except renal pelvis (HCC) [C64.1] Other Visit Diagnosis:Renal mass, right [N28.89] Prescriptions as of 04/09/2018 Sig: SERTRALINE 50 MG TABLET IV CONTRAST (RADIOLOGY PROCED* CT ABD W -Inject, intravenous* Patient not taking: Reported on 04/06/2018 KETOROLAC 10 MG TABLET Take 1 tablet by mouth every * Patient not taking: Reported on 04/06/2018 DOCUSATE SODIUM 100 MG CAPSULE Take 1 capsule by mouth twice* Patient not taking: Reported on 04/06/2018 HYDROXYZINE HCL 25 MG TABLET Problem List As Of Date 04/09/2018 Noted Resolved Hypertension [I10] INVALID FOR* Left knee pain [M25.562] INVALID FOR* Patellar tendinitis [M76.50] INVALID FOR* Morbid obesity [E66.01] INVALID FOR* Right renal mass [N28.89] INVALID FOR* Obesity, Class III, BMI >= 40 E66.01 [E66.01] INVALID FOR* Renal mass, right [N28.89] INVALID FOR* Malignant neoplasm of right kidney, except bean*INVALID FOR* Visit Notes: >> Flaquita Barker Ma [facility] April 09, 2018 10:03 AM Status: Signed Patient presents with: Post Op: DOS 03/09/2018,Right Partial Nephrectomy Follow-up and Disposition History Recorded Letter Text Encounter Status:Closed by YUSUF FAJARDO DO, MBA on 04/09/18 PROGRESS Observed: 04/06/2018 Status: COMPLETED Source: [place] 11:26 AM [facility] REPOSITORY HNO ID: [id number] Author: Jann Koenig Service: (none) Author Type: Physician Type: Progress Notes Filed: 04/06/2018 12:21 PM Note Text: [facility] Date: April 06, 2018 - 11:28 AM Jorge Remedios Roque is seen in consultation requested by Dr. Yusuf Fajardo for an opinion regarding abdominal pain/postop pain. My final recommendations will be communicated back to the requesting physician by way of shared medical record or via US mail. Chief Complaint: Patient presents with: New Patient: Consult to pain management antesthesia SUBJECTIVE: Jorge Roque, is a 42 year old year old with a history of right renal mass, who presents with right abdominal pain after recent laparoscopic surgery. The pain started 2 months ago, following following a surgical procedure (kidney). and is worsening. His pain is located in the right lower right region and radiates across the lower abdomen. The pain is described as aching, radiating, severe, sharp, soreness, shooting, stabbing, throbbing and tight band. The pain intensity is rated 9. The pain is exacerbated by activity, standing, walking, sitting, arising from a sitting position, lifting, flexion, extension, driving/riding in car, entering/exiting a car, mornings, evenings, pain is constant and changes in weather and relieved by medications - NSAIDs. Symptoms interfere with physical activity, work, sexual relations, walking, sleeping, sitting, bathing, driving, cooking, household cleaning, reaching for shelves, lifting and social activities. Obtained by Barbara Peoples Ma by interview and using data analytics architect from patient completed questionnaire I have reviewed, confirmed and edited the preliminary information with the patient: yes. In addition the patient reports no additional concerns. Litigation: No. Prior pain treatment has included medications - NSAIDs with no relief. He had relief from the following interventions: None. ALLERGIES No Known Allergies Current Medications: Pain medications reviewed and reconciled in the medication list: Yes. Current Outpatient Prescriptions: sertraline (ZOLOFT) 50 mg tablet iv contrast (radiology procedure) CT ABD W -Inject, intravenously, once for 1 dose.No IV access, insert saline lock prior to the beginning of sedation, infusion, injection of imaging exam. Discontinue saline lock post exam. If Pt. has a central line or IVAD, may access for administration according to line specific nursing protocol. Once exam is complete flush line and de-access according to line specific nursing protocol in the CT contrast administration guidelines link. (Patient not taking: Reported on 04/06/2018 ) ketorolac (TORADOL) 10 mg tablet Take 1 tablet by mouth every 6 hours as needed. (Patient not taking: Reported on 04/06/2018 ) docusate sodium (COLACE) 100 mg capsule Take 1 capsule by mouth twice daily as needed. (Patient not taking: Reported on 04/06/2018 ) hydrOXYzine HCl (ATARAX) 25 mg tablet No current facility-administered medications for this visit. PAST MEDICAL HISTORY Diagnosis Date - Hypertension - Morbid obesity (HCC) - Opioid use disorder, mild, abuse see below - Substance abuse cocaine and cannabis per counseling center notes, seeing counseling center PAST SURGICAL HISTORY Procedure Laterality Date - REPAIR UMBILICAL IONA,5+Y/O,REDUC 3-7-13 FAMILY HISTORY Problem Relation Age of Onset - Hypertension Father - Arthritis Father - Diabetes Father - obesity [OTHER] Father - Hypertension Paternal Grandmother - Heart Paternal Grandmother - Diabetes Paternal Grandmother - renal failure [OTHER] Paternal Grandmother - Hypertension Paternal Grandfather - Heart Paternal Grandfather - Diabetes Paternal Grandfather Social History: Alcohol Use: No Tobacco Use: Never Drug Use: No Employer And Job Title: None on file Years Of Education Completed: Not specified Marital Status: REVIEW OF SYSTEMS: Constitutional: (-) Fever (+) Night Sweats (-) Weight Gain (-) Weight Loss (-) Fatigue Cardiovascular: (-) Chest Pain (-) Palpitations (-) Lightheadedness (-) Swelling of Ankles (-) Hx Heart Surgery Respiratory: (-) Shortness of Breath (-) Cough (-) Wheezing (+) Snoring Gastrointestinal: (-) Incontinence (+) Abdominal Pain (+) Diarrhea (-) Constipation (-) Nausea/Vomiting (-) Heart Burn Endocrine: (-) Thyroid Disorder (-) Diabetes Hematologic: (-) Prolonged Bleeding (-) Easy Bruising Genitourinary: (-) Incontinence (-) Frequency (-) Urinary Urgency Skin: (-) Rashes (-) Itching (-) Other Lesions Neurologic: (-) Headache (-) Double Vision (-) Confusion (-) Paralysis (-) Vertigo (-) Syncope Psychiatric: (+) Depression (+) Anxiety (-) Delusions (-) Hallucinations (-) Suicidal Thoughts Barbara Peoples Ma OARRS Report reviewed: Yes Narcotic Agreement reviewed and signed?: N/A Baseline Urine Toxicology obtained: N/A Urine Panel: Lab Results Component Value Date Cannabinoid Quant, Urine <16 10/07/2012 Benzoylecognine Quant, Urine <24 10/07/2012 6-Acetylmorphine Quant, Urine <5 10/07/2012 Amphetamine Quant, Urine 311 (H) 10/07/2012 Methamphetamine Quant, Urine <8 10/07/2012 Buprenorphine Quant, Urine <20 10/07/2012 Norbuprenorphine Quant, Urine <20 10/07/2012 Methadone Quant, Urine <16 10/07/2012 EDDP Quant, Urine <6 10/07/2012 Tramadol Quant, Urine <25 10/07/2012 Desmethyltramadol Quant, Urine <20 10/07/2012 Fentanyl Quant, Urine <6 10/07/2012 Norfentanyl Quant, Urine <6 10/07/2012 Codeine Quant, Urine <11 10/07/2012 Morphine Quant, Urine <5 10/07/2012 Dihydrocodeine Quant, Urine <5 10/07/2012 Hydrocodone Quant, Urine <8 10/07/2012 Oxycodone Quant, Urine <5 10/07/2012 Hydromorphone Quant, Urine <5 10/07/2012 Oxymorphone Quant, Urine 30 10/07/2012 Creatinine,Ur Pain Thakkar >50 10/07/2012 Urine pH, Pain Thakkar 4-10 10/07/2012 Specific [place],Ur Pain Thakkar 1.005-1.020 10/07/2012 Oxidants,Ur Negative 10/07/2012 Specimen Quality, Ur Pain Thakkar Specimen quality results within acceptable limits. 10/07/2012 The pain panel was N/A I have reviewed, confirmed and edited the preliminary information with the patient: OBJECTIVE: PHYSICAL EXAMINATION: Pulse 72 Ht 5' 8 (1.73m) Wt 377 lb (171.0kg) SpO2 97% BMI 57.34 kg/(m2). General: Well-appearing, alert, in mild acute distress Skin: Skin color, texture, turgor normal, no rashes or lesions HEENT: Normocephalic, atraumatic, sclera nonicteric CV: Regular rate and rhythm -Pulses: +2 and equal bilaterally Resp: Breathing unlabored, normal chest excursion. GI: Abdomen soft, Obese, right abdomen with incisions. Diffuse tenderness. Negative guarding. Musculoskeletal: Neurological: Mental Status: Alert and oriented x3, Appropriate to topic Motor Strength:Motor strength and tone are 5/5 throughout Sensory:Sensation was intact to light touch all throughout Gait: wide-based Medical record and diagnostic tests reviewed for today's visit: The [facility] EMR was reviewed during the visit IMAGING STUDIES: No new imaging studies were reviewed during this office visit. ASSESSMENT: (C64.1) Malignant neoplasm of right kidney, except renal pelvis (HCC) (primary encounter diagnosis) (R10.31) Right lower quadrant abdominal pain Discussion: Discussed options for additional treatment including health promotion/lifestyle modifications, medication management, and additional pain management interventions. We also discussed referral to physical or occupational therapy, psychological pain management and surgical options as appropriate. Also a discussion was entertained regarding chronic opioid therapy as it relates to chronic benign pain. A skilled nursing use of opioids have generally not been effective in managing chronic benign pain, therefore I do not recommend it. .Mr. Roque understands that his pain may not be entirely relieved by the use of medications alone. Other factors that may contribute to chronic pain were discussed including smoking, obesity, and a sedentary lifestyle. PLAN: 1. Recent surgery and post op pain management by the surgical team. 2. He has been on different pain medication including gabapentin with minimal relief. 3. No interventional procedures indicated 4. Continue medication management through the patient's current prescribing physician. He is having persistent pain and may need further studies but pain consistent with postop related pain. 5. Follow up:prn for an office visit. The above plan and management options were discussed with patient. The patient is in agreement with the above and verbalized understanding. I have discussed and confirmed the above treatment plan with the patient. and I have reviewed the nurses notes and I am aware of the family/social history. Jann Koenig MD April 06, 2018 cc: Yusuf Fajardo DO, MBA [id number] [facility] [address] Results of consultation to be transmitted via electronic medical record for those providers who practice within [facility] or with access to [employer] via MD Connect, or via letter. CNOV Observed: 04/06/2018 Status: COMPLETED Source: [place] 10:50 AM [facility] REPOSITORY Office Visit (PNMDNA) JORGE ROQUE ([id number]) 1975 M Date Time Provider Department 04/06/18 10:50 AM JANN KOENIG PNCARLENE During your visit today, we recorded the following information about you: Pulse Weight Height 72/minute 171 kg 1.727 m Jann Koenig MD 04/06/2018 12:21 PM Signed [facility] Date: April 06, 2018 - 11:28 AM Jorge Roque is seen in consultation requested by Dr. Yusuf Fajardo for an opinion regarding abdominal pain/postop pain. My final recommendations will be communicated back to the requesting physician by way of shared medical record or via US mail. Chief Complaint: Patient presents with: New Patient: Consult to pain management antesthesia SUBJECTIVE: Jorge Roque, is a 42 year old year old with a history of right renal mass, who presents with right abdominal pain after recent laparoscopic surgery. The pain started 2 months ago, following following a surgical procedure (kidney). and is worsening. His pain is located in the right lower right region and radiates across the lower abdomen. The pain is described as aching, radiating, severe, sharp, soreness, shooting, stabbing, throbbing and tight band. The pain intensity is rated 9. The pain is exacerbated by activity, standing, walking, sitting, arising from a sitting position, lifting, flexion, extension, driving/riding in car, entering/exiting a car, mornings, evenings, pain is constant and changes in weather and relieved by medications - NSAIDs. Symptoms interfere with physical activity, work, sexual relations, walking, sleeping, sitting, bathing, driving, cooking, household cleaning, reaching for shelves, lifting and social activities. Obtained by Barbara Peoples Ma by interview and using data analytics architect from patient completed questionnaire I have reviewed, confirmed and edited the preliminary information with the patient: yes. In addition the patient reports no additional concerns. Litigation: No. Prior pain treatment has included medications - NSAIDs with no relief. He had relief from the following interventions: None. ALLERGIES No Known Allergies Current Medications: Pain medications reviewed and reconciled in the medication list: Yes. Current Outpatient Prescriptions: sertraline (ZOLOFT) 50 mg tablet iv contrast (radiology procedure) CT ABD W -Inject, intravenously, once for 1 dose.No IV access, insert saline lock prior to the beginning of sedation, infusion, injection of imaging exam. Discontinue saline lock post exam. If Pt. has a central line or IVAD, may access for administration according to line specific nursing protocol. Once exam is complete flush line and de-access according to line specific nursing protocol in the CT contrast administration guidelines link. (Patient not taking: Reported on 04/06/2018 ) ketorolac (TORADOL) 10 mg tablet Take 1 tablet by mouth every 6 hours as needed. (Patient not taking: Reported on 04/06/2018 ) docusate sodium (COLACE) 100 mg capsule Take 1 capsule by mouth twice daily as needed. (Patient not taking: Reported on 04/06/2018 ) hydrOXYzine HCl (ATARAX) 25 mg tablet No current facility-administered medications for this visit. PAST MEDICAL HISTORY Diagnosis Date - Hypertension - Morbid obesity (HCC) - Opioid use disorder, mild, abuse see below - Substance abuse cocaine and cannabis per counseling center notes, seeing counseling center PAST SURGICAL HISTORY Procedure Laterality Date - REPAIR UMBILICAL IONA,5+Y/O,REDUC 3-7-13 FAMILY HISTORY Problem Relation Age of Onset - Hypertension Father - Arthritis Father - Diabetes Father - obesity [OTHER] Father - Hypertension Paternal Grandmother - Heart Paternal Grandmother - Diabetes Paternal Grandmother - renal failure [OTHER] Paternal Grandmother - Hypertension Paternal Grandfather - Heart Paternal Grandfather - Diabetes Paternal Grandfather Social History: Alcohol Use: No Tobacco Use: Never Drug Use: No Employer And Job Title: None on file Years Of Education Completed: Not specified Marital Status: REVIEW OF SYSTEMS: Constitutional: (-) Fever (+) Night Sweats (-) Weight Gain (-) Weight Loss (-) Fatigue Cardiovascular: (-) Chest Pain (-) Palpitations (-) Lightheadedness (-) Swelling of Ankles (-) Hx Heart Surgery Respiratory: (-) Shortness of Breath (-) Cough (-) Wheezing (+) Snoring Gastrointestinal: (-) Incontinence (+) Abdominal Pain (+) Diarrhea (-) Constipation (-) Nausea/Vomiting (-) Heart Burn Endocrine: (-) Thyroid Disorder (-) Diabetes Hematologic: (-) Prolonged Bleeding (-) Easy Bruising Genitourinary: (-) Incontinence (-) Frequency (-) Urinary Urgency Skin: (-) Rashes (-) Itching (-) Other Lesions Neurologic: (-) Headache (-) Double Vision (-) Confusion (-) Paralysis (-) Vertigo (-) Syncope Psychiatric: (+) Depression (+) Anxiety (-) Delusions (-) Hallucinations (-) Suicidal Thoughts Barbara Peoples Ma OARRS Report reviewed: Yes Narcotic Agreement reviewed and signed?: N/A Baseline Urine Toxicology obtained: N/A Urine Panel: Lab Results Component Value Date Cannabinoid Quant, Urine <16 10/07/2012 Benzoylecognine Quant, Urine <24 10/07/2012 6-Acetylmorphine Quant, Urine <5 10/07/2012 Amphetamine Quant, Urine 311 (H) 10/07/2012 Methamphetamine Quant, Urine <8 10/07/2012 Buprenorphine Quant, Urine <20 10/07/2012 Norbuprenorphine Quant, Urine <20 10/07/2012 Methadone Quant, Urine <16 10/07/2012 EDDP Quant, Urine <6 10/07/2012 Tramadol Quant, Urine <25 10/07/2012 Desmethyltramadol Quant, Urine <20 10/07/2012 Fentanyl Quant, Urine <6 10/07/2012 Norfentanyl Quant, Urine <6 10/07/2012 Codeine Quant, Urine <11 10/07/2012 Morphine Quant, Urine <5 10/07/2012 Dihydrocodeine Quant, Urine <5 10/07/2012 Hydrocodone Quant, Urine <8 10/07/2012 Oxycodone Quant, Urine <5 10/07/2012 Hydromorphone Quant, Urine <5 10/07/2012 Oxymorphone Quant, Urine 30 10/07/2012 Creatinine,Ur Pain Thakkar >50 10/07/2012 Urine pH, Pain Thakkar 4-10 10/07/2012 Specific [place],Ur Pain Thakkar 1.005-1.020 10/07/2012 Oxidants,Ur Negative 10/07/2012 Specimen Quality, Ur Pain Thakkar Specimen quality results within acceptable limits. 10/07/2012 The pain panel was N/A I have reviewed, confirmed and edited the preliminary information with the patient: OBJECTIVE: PHYSICAL EXAMINATION: Pulse 72 Ht 5' 8 (1.73m) Wt 377 lb (171.0kg) SpO2 97% BMI 57.34 kg/(m2). General: Well-appearing, alert, in mild acute distress Skin: Skin color, texture, turgor normal, no rashes or lesions HEENT: Normocephalic, atraumatic, sclera nonicteric CV: Regular rate and rhythm -Pulses: +2 and equal bilaterally Resp: Breathing unlabored, normal chest excursion. GI: Abdomen soft, Obese, right abdomen with incisions. Diffuse tenderness. Negative guarding. Musculoskeletal: Neurological: Mental Status: Alert and oriented x3, Appropriate to topic Motor Strength:Motor strength and tone are 5/5 throughout Sensory:Sensation was intact to light touch all throughout Gait: wide-based Medical record and diagnostic tests reviewed for today's visit: The [facility] EMR was reviewed during the visit IMAGING STUDIES: No new imaging studies were reviewed during this office visit. ASSESSMENT: (C64.1) Malignant neoplasm of right kidney, except renal pelvis (HCC) (primary encounter diagnosis) (R10.31) Right lower quadrant abdominal pain Discussion: Discussed options for additional treatment including health promotion/lifestyle modifications, medication management, and additional pain management interventions. We also discussed referral to physical or occupational therapy, psychological pain management and surgical options as appropriate. Also a discussion was entertained regarding chronic opioid therapy as it relates to chronic benign pain. 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 .Mr. Roque understands that his pain may not be entirely relieved by the use of medications alone. Other factors that may contribute to chronic pain were discussed including smoking, obesity, and a sedentary lifestyle. PLAN: 1. Recent surgery and post op pain management by the surgical team. 2. He has been on different pain medication including gabapentin with minimal relief. 3. No interventional procedures indicated 4. Continue medication management through the patient's current prescribing physician. He is having persistent pain and may need further studies but pain consistent with postop related pain. 5. Follow up:prn for an office visit. The above plan and management options were discussed with patient. The patient is in agreement with the above and verbalized understanding. I have discussed and confirmed the above treatment plan with the patient. and I have reviewed the nurses notes and I am aware of the family/social history. Jann Koenig MD April 06, 2018 cc: Yusuf Fajardo DO, MBA [id number] [facility] [id number] Results of consultation to be transmitted via electronic medical record for those providers who practice within [facility] or with access to [employer] via MD Connect, or via letter. Referring Provider: YUSUF FAJARDO [[id number]] Allergies As of Date: 04/06/2018 (No Known Allergies) Date Reviewed: 04/06/2018 Reviewed by: Barbara Peoples Ma - Fully Assessed Reason for Visit: New Patient [172] Cmt: Consult to pain management antesthesia Primary Visit Diagnosis:Malignant neoplasm of right kidney, except renal pelvis (HCC) [C64.1] Other Visit Diagnosis:Right lower quadrant abdominal pain [R10.31] Prescriptions as of 04/06/2018 Sig: SERTRALINE 50 MG TABLET IV CONTRAST (RADIOLOGY PROCED* CT ABD W -Inject, intravenous* Patient not taking: Reported on 04/06/2018 KETOROLAC 10 MG TABLET Take 1 tablet by mouth every * Patient not taking: Reported on 04/06/2018 DOCUSATE SODIUM 100 MG CAPSULE Take 1 capsule by mouth twice* Patient not taking: Reported on 04/06/2018 HYDROXYZINE HCL 25 MG TABLET Problem List As Of Date 04/06/2018 Noted Resolved Hypertension [I10] INVALID FOR* Left knee pain [M25.562] INVALID FOR* Patellar tendinitis [M76.50] INVALID FOR* Morbid obesity [E66.01] INVALID FOR* Right renal mass [N28.89] INVALID FOR* Obesity, Class III, BMI >= 40 E66.01 [E66.01] INVALID FOR* Renal mass, right [N28.89] INVALID FOR* Malignant neoplasm of right kidney, except bean*INVALID FOR* Encounter Status:Closed by JANN KOENIG MD on 04/06/18 CNPN Observed: 04/06/2018 Status: COMPLETED Source: [place] 12:00 AM [facility] REPOSITORY Telephone (UROLWS) JORGE ROQUE ([id number]) 1975 M Date Time Provider Department 04/06/18 DELMAR MENARD) UROLWS During your visit today, we recorded the following information about you: Navya Banuelos RN 04/06/2018 12:24 PM Signed Patient called and is requesting post op pain medication. He states that he saw Dr. Koenig this morning and he agreed that this is post op pain. Please advise. Navya Alcaraz Ma 04/06/2018 5:10 PM Signed He was supposed to see Dr. Fajardo in office on 03/26/2018 and he was a no show. He needs to see Abdirashid Fajardo for post-op appt and look at this incisional hernia situation Thank you, Lori Attempted to contact pt. No answer and no voicemail. Pt to be advised to go to ER if unable to wait for appointment on to see Dr. Fajardo. Use OTC pain meds in the interim per NAHUM Cruz DO, MBA, 04/06/2018 9:49 PM Signed Please schedule patient to see me in [place] This add on please Thanks Meghan Kilpatrick 04/07/2018 10:09 AM Signed Patient is already scheduled with Dr. Esteves on 04/09/18 in the [place] office Thank You Meghan Alcaraz Ma 04/07/2018 3:58 PM Signed Pt notified that he is to keep appt and if OTC pain medication is not controlling pain, he is to go to ER in the interim. Pt verbalized understanding. Real Alcaraz Ma Allergies As of Date: 04/06/2018 (No Known Allergies) Date Reviewed: 04/06/2018 Reviewed by: Barbara Peoples Ma - Fully Assessed Reason for Visit: Information [1328] Prescriptions as of 04/06/2018 Sig: IV CONTRAST (RADIOLOGY PROCED* CT ABD W -Inject, intravenous* Patient not taking: Reported on 04/06/2018 KETOROLAC 10 MG TABLET Take 1 tablet by mouth every * Patient not taking: Reported on 04/06/2018 DOCUSATE SODIUM 100 MG CAPSULE Take 1 capsule by mouth twice* Patient not taking: Reported on 04/06/2018 HYDROXYZINE HCL 25 MG TABLET SERTRALINE 50 MG TABLET Problem List As Of Date 04/06/2018 Noted Resolved Hypertension [I10] INVALID FOR* Left knee pain [M25.562] INVALID FOR* Patellar tendinitis [M76.50] INVALID FOR* Morbid obesity [E66.01] INVALID FOR* Right renal mass [N28.89] INVALID FOR* Obesity, Class III, BMI >= 40 E66.01 [E66.01] INVALID FOR* Renal mass, right [N28.89] INVALID FOR* Malignant neoplasm of right kidney, except bean*INVALID FOR* Encounter Status:Closed by REAL ALCARAZ MA on 04/06/18 EMERGENCY DEPARTMENT Observed: 04/02/2018 Status: F Source: [place] SUMMARY 4:32 PM [facility] REPOSITORY [facility] Medical Records Department [address] [place] [address] Emergency Department Summary 04/02/18 1145 MR#: [id number] Acct: [id number] Name: JORGE ROQUE Rep #: [id number] : 1975 42 From: Michael Hawk MD PCP: Jameson Herrera MD Status: DEP ER - ER Visit Summary Date of Service: 04/02/18 Chief Complaint: Abdominal pain History of Present Illness: The patient is a [address] Herrera. He had a partial right nephrectomy for renal cell cancer March 09 at [facility]. He reports he has had pain on that side of his abdomen since that time. The pain worsened 3 days ago. Is a sharp pain that is 10 out of 10 severity. Is worsened by laying down. He is not taking anything for this. He was seen in the emergency department March 15 and placed on Keflex. He had his dominguez removed [address] Menard and was continued on the Keflex which she finished 3 days ago. Patient is concerned because he can feel a lump under the middle incision. He denies any constitutional symptoms. No fever, chills, nausea, or vomiting. Physical Examination: Vitals: Stable. Afebrile. General: Well-nourished and well-developed. Head: Normocephalic atraumatic. Neck: Supple, no lymphadenopathy. No JVD. Nontender. Cardiovascular: Regular rate and rhythm. No murmurs. Respiratory: No respiratory distress. Clear to auscultation bilaterally. Abdominal: Soft, mild tenderness to palpation approximately 2 cm indurated area over the middle incision on the right no erythema or fluctuance, nondistended, normal bowel sounds. No guarding, rebound, or peritoneal signs. Incisions are clean dry and intact. There is no surrounding erythema. Back: Nontender. Extremities: Nontender, no edema. Skin: Normal color, no rash. Neurologic: Alert and oriented 3. Cranial nerves II through XII are intact. Normal strength and sensation. Psych: Normal affect. Test Results: CT flank shows Clinical Impression(s) from Imaging Studies IMPRESSION: Status post partial right nephrectomy with resultant postoperative changes. Findings suggestive of a postoperative seroma in the subcutaneous tissues in the right mid lateral anterior abdomen just lateral to a focal hernia containing fat. The neck of the hernia measures 2.5 cm. Emergency Department Course and Treatment: An OARRS report was obtained which shows he has had 3 prescriptions for opiates in the past year. He is treated with a dose of oxycodone here. Treatment Plan: Clinically this seroma is not infected. There is no erythema, warmth, or fluctuance. I discussed the patient and the hernia that he has and the seroma. He has an appointment to follow-up with his surgeon in 5 days. I do not think that putting him on antibiotics at this point is indicated. He will be discharged with prescription for 12 Percocet. Return to the emergency department for any worsening symptoms. Disposition: To home in improved and stable condition. Impression: 1. 24 days status post partial right nephrectomy. 2. Postoperative seroma. This note was generated with ElementsLocal dictation software. It may contain incorrect words, spelling, and punctuation that were not noted in review of the chart prior to signing ED Disposition - Plan for ED Patient: Chief Complaint: Wound Check Instructions: ED Post Op Pain Prescriptions: Oxycodone HCl/Acetaminophen [Percocet 5/325] 1 tablet PO Q6H PRN PRN 3 Days #12 tablet PRN Reason: Pain Additional Instructions: Follow-up with your surgeon as previously scheduled. What to do if you have Problems For any increased pain, shortness of breath, bleeding, nausea or vomiting, chest pain, or any unexpected problems, contact your Primary Care Provider. Call [facility] ([phone]) or report to the closest Emergency Room. Call 911 if necessary. 04/02/18 4047 <Electronically signed by Michael Hawk MD> Date Michael Hawk MD Cosigner Signature (If Indicated): Date CC: Jameson Herrera MD ABDOMEN/PELVIS WITHOUT Observed: 04/02/2018 Status: F Source: JESUS CONT 10:21 AM [facility] REPOSITORY [facility] Imaging Services [address] [place] [address] Abdomen/Pelvis without Cont MR#: [id number] Acct: [id number] Name: JORGE ROQUE Rep #: [id number] : 1975 M 42 From: Chencho Templeton MD PCP: Jameson Herrera MD Status: REG ER Study: Abdomen/Pelvis without Cont Date of Exam: 04/02/18 Exam# [id number] Ordering Dr: Michael Hawk MD STUDY: CT ABDOMEN AND PELVIS WITHOUT CONTRAST REASON FOR EXAM: Male, 42 years old. Recent right partial nephrectomy. Right flank pain. History of renal carcinoma. RADIATION DOSAGE (If Supplied By Facility): CTDIvol = ( 17.58 ) mGy, DLP = ( 2640.44 ) mGycm TECHNIQUE: Transaxial images were obtained from the dome of the diaphragm to the symphysis pubis without oral contrast, and without intravenous contrast. Sagittal and coronal images were reconstructed. Individualized dose optimization techniques were used for this CT. COMPARISON: Comparison is made with prior study dated December 26, 2017. FINDINGS: The visualized lung bases are unremarkable. The visualized portions of the heart are within normal limits. Normal liver. Normal gallbladder and extrahepatic biliary system. Normal spleen. Normal pancreas. Normal bilateral adrenal glands. The patient is status post partial right nephrectomy with resection of the 3.7 cm inhomogeneous mass arising from the lateral aspect of the right kidney. Postsurgical changes are seen with increased linear markings. There is no evidence of a fluid collection or perinephric hematoma. Normal left kidney. Normal visualized stomach. Normal small intestine. Normal colon. The appendix is visualized and appears normal. Normal abdominal aorta. Normal inferior vena cava. Normal retroperitoneum. Normal urinary bladder. There is evidence of a focal herniation in the right lateral abdominal wall with fat. There is evidence of a 9.4 cm x 4.8 cm soft tissue density overlying the right mid abdomen laterally. This most likely represents postoperative or seroma. Normal osseous structures. CT/Abdomen/Pelvis without Cont IMPRESSION: Status post partial right nephrectomy with resultant postoperative changes. Findings suggestive of a postoperative seroma in the subcutaneous tissues in the right mid lateral anterior abdomen just lateral to a focal hernia containing fat. The neck of the hernia measures 2.5 cm. Electronically Signed: Chencho Templeton MD at 11:16 EDT Tel [phone], Service support , CC: Michael Hawk MD; Jameson Herrera MD Enrobing Machine Feeder: Signed CNCO Observed: 03/26/2018 Status: COMPLETED Source: [place] 12:00 AM [facility] REPOSITORY Letter Text Yusuf Fajardo DO [facility] [address] [place] [address] Jorge Roque March 26, 2018 Jorge Remedios Mya [address] [place] [id number] Dear Mr. Roque, It was noted that you did not keep your scheduled appointment on 03/26/18. It is important to contact the office in advance if you are unable to keep your appointment so that it is available for other patients. Your medical care is important to us. Please call our office to reschedule an appointment. Sincerely, Yusuf Fajardo DO PROGRESS Observed: 03/19/2018 Status: COMPLETED Source: [place] 10:17 AM [facility] REPOSITORY HNO ID: [id number] Author: Delmar Menard) Service: (none) Author Type: Physician Keying Machine Operator Type: Progress Notes Filed: 03/19/2018 2:04 PM Note Text: POST OPERATIVE NOTE: Jorge Roque Robotic-Assisted Laparoscopic Right Partial Nephrectomy on March 09, [address] Fajardo PHYSICAL EXAM: Skin Color: pink Skin Temperature: warm Abdomen: soft, nondistended and obese AND Tenderness: Yes Bowel Sounds: Quadrant -normal, present x 4 INCISIONS: Healing nicely without erythema or warmth or tenderness and no signs of any port site hernia.in all sites except RLQ Incisional stables removed today and steri-strips in place Pain 6/10 especially over the incision in RLQ area, very warm to touch and erythemic, no pus Appetite: fair Fever: No Bowel Movement: Yes, Passing Gas: Yes WOODWARD CATHETER: Evens Wharton Drain: no Woodward Cath: No IMPRESSION / PLAN: > Renal Cell Carcinoma - Clear Cell Type > Keflex 500 mg 4 time daily x 10 days for incisional cellulitis > Pain Management Consult must be made for further Narcotic Pain medications > He has a history of substance abuse and this was made very clear to him > Keep Post-operative appointment with Dr. Fajardo as scheduled on March > Patient will need a letter stating he is to be on light duty for 4-6 weeks and sent to his child support court of record He will get this from Dr. Fajardo's office next week. > 6 month appointment w/ LUPE Ma MT, PA-C, with CT Abdomen, CXR and BMP prior to visit LUPE Cruz MT, PA-C CNOV Observed: 03/19/2018 Status: COMPLETED Source: [place] 10:15 AM [facility] REPOSITORY Office Visit (UROLWS) JORGE ROQUE ([id number]) 1975 M Date Time Provider Department 03/19/18 10:15 AM DELMAR MENARD) UROMICHELLE During your visit today, we recorded the following information about you: Temperature 97.8 degrees Delmar Menard) 03/19/2018 2:04 PM Signed POST OPERATIVE NOTE: Jorge Roque Robotic-Assisted Laparoscopic Right Partial Nephrectomy on March 09, [address] Fajardo PHYSICAL EXAM: Skin Color: pink Skin Temperature: warm Abdomen: soft, nondistended and obese AND Tenderness: Yes Bowel Sounds: Quadrant -normal, present x 4 INCISIONS: Healing nicely without erythema or warmth or tenderness and no signs of any port site hernia.in all sites except RLQ Incisional stables removed today and steri-strips in place Pain 6/10 especially over the incision in RLQ area, very warm to touch and erythemic, no pus Appetite: fair Fever: No Bowel Movement: Yes, Passing Gas: Yes WOODWARD CATHETER: Evens Wharton Drain: no Woodward Cath: No IMPRESSION / PLAN: > Renal Cell Carcinoma - Clear Cell Type > Keflex 500 mg 4 time daily x 10 days for incisional cellulitis > Pain Management Consult must be made for further Narcotic Pain medications > He has a history of substance abuse and this was made very clear to him > Keep Post-operative appointment with Dr. Fajardo as scheduled on March > Patient will need a letter stating he is to be on light duty for 4-6 weeks and sent to his child support court of record He will get this from Dr. Fajardo's office next week. > 6 month appointment w/ LUPE Ma MT, PA-C, with CT Abdomen, CXR and BMP prior to visit LUPE Cruz MT, PA-C Referring Provider: YUSUF FAJARDO [[id number]] Allergies As of Date: 03/19/2018 (No Known Allergies) Date Reviewed: 03/19/2018 Reviewed by: Real Alcaraz Ma - Fully Assessed Reason for Visit: Post Op [174] Primary Visit Diagnosis:Malignant neoplasm of right kidney, except renal pelvis (HCC) [C64.1] Other Visit Diagnoses:Obesity, Class III, BMI >= 40 E66.01 [E66.01] Morbid obesity (HCC) [E66.01] Order(s):cephALEXin (KEFLEX) 500 mg capsuleTake 1 capsule by mouth four times daily for 10 days.Disp: 40 capsuleRfl: 0 HYDROcodone-acetaminophen (NORCO) 5-325 mg per tabletTake 1 tablet by mouth every 8 hours as needed for Pain for up to 5 days.Disp: 15 tabletRfl: 0 XR CHEST 2V FRONTAL/LAT [[id number]] Order #: [id number] FUTURE CT ABDOMEN W IVCON [[id number]] Order #: [id number] FUTURE iv contrast (radiology procedure)CT ABD W -Inject, intravenously, once for 1 dose.No IV access, insert saline lock prior to the beginning of sedation, infusion, injection of imaging exam. Discontinue saline lock post exam. If Pt. has a central line or IVAD, may access for administration according to line specific nursing protocol. Once exam is complete flush line and de- access according to line specific nursing protocol in the CT contrast administration guidelines link.Disp: 1 EachRfl: 0 BASIC METABOLIC PNL [SQBMP] Order #: [id number] FUTURE Prescriptions as of 03/19/2018 Sig: KETOROLAC 10 MG TABLET Take 1 tablet by mouth every * DOCUSATE SODIUM 100 MG CAPSULE Take 1 capsule by mouth twice* HYDROXYZINE HCL 25 MG TABLET SERTRALINE 50 MG TABLET CEPHALEXIN 500 MG CAPSULE Take 1 capsule by mouth four * HYDROCODONE 5 MG-ACETAMINOPHE* Take 1 tablet by mouth every * IV CONTRAST (RADIOLOGY PROCED* CT ABD W -Inject, intravenous* Problem List As Of Date 03/19/2018 Noted Resolved Hypertension [I10] INVALID FOR* Left knee pain [M25.562] INVALID FOR* Patellar tendinitis [M76.50] INVALID FOR* Morbid obesity [E66.01] INVALID FOR* Right renal mass [N28.89] INVALID FOR* Obesity, Class III, BMI >= 40 E66.01 [E66.01] INVALID FOR* Renal mass, right [N28.89] INVALID FOR* Malignant neoplasm of right kidney, except bean*INVALID FOR* Prescriptions ordered this encounter Disp Refills Start End CEPHALEXIN 500 MG CAPSULE 40 c* 0 03/19/2018 03/29/2018 Route: ORAL Sig: Take 1 capsule by mouth four times daily for 10 days. HYDROCODONE 5 MG-ACETAMINOPHEN 325 M* 15 t* 0 03/19/2018 03/24/2018 Class: Print RX Route: ORAL Sig: Take 1 tablet by mouth every 8 hours as needed for Pain for up to 5 days. IV CONTRAST (RADIOLOGY PROCEDURE) 1 Ea* 0 03/19/2018 Class: In Office Sig: CT ABD W -Inject, intravenously, once for 1 dose.No IV access, insert saline lock prior to the beginning of sedation, infusion, injection of imaging exam. Discontinue saline lock post exam. If Pt. has a central line or IVAD, may access for administration according to line specific nursing protocol. Once exam is complete flush line and de-access according to line specific nursing protocol in the CT contrast administration guidelines link. Medications Discontinued During This Encounter iv contrast (radiology procedure) 1 Ea* 0 03/16/2018 03/19/2018 Class: In Office Sig: CT ABD W -Inject, intravenously, once for 1 dose.No IV access, insert saline lock prior to the beginning of sedation, infusion, injection of imaging exam. Discontinue saline lock post exam. If Pt. has a central line or IVAD, may access for administration according to line specific nursing protocol. Once exam is complete flush line and de-access according to line specific nursing protocol in the CT contrast administration guidelines link. Disc: Reason for discontinue is not on file. Follow-up and Disposition History Recorded Encounter Status:Closed by DELMAR MENARD PA-C on 03/19/18 EMERGENCY DEPARTMENT Observed: 03/16/2018 Status: F Source: MOODY SUMMARY 12:30 AM [facility] Medical Records Department [address] [place] [id number] Emergency Department Summary 03/15/18 2318 MR#: [id number] Acct: [id number] Name: JORGE ROQUE Rep #: [id number] : 1975 42 From: Derek Epps MD PCP: Jameson Herrera MD Status: DEP ER - ER Visit Summary Date of Service: 03/15/18 Chief Complaint: I think my incision is infected History of Present Illness: The patient is a 42 M is post partial nephrectomy on the right done at [facility] approximately 1 week ago secondary to a renal tumor. Patient states been doing well. Whenever changing the bandage today they noticed redness to his abdominal wall and some cloudy discharge from his right lower laparoscopic incision. He denies any fever. States is feeling well otherwise. Physical Examination: Vital signs are stable and afebrile. He does not look septic toxic. He is in no distress. HEENT exam unremarkable. Neck nontender no lymphadenopathy. Lungs clear to auscultation bilaterally. Heart regular rhythm no murmur. Abdomen has multiple well-healing surgical incisions. The right lower 1 does have redness around it. Currently there is no discharge. This does appear to be abdominal wall cellulitis. It is warm to touch. Below that is a prior drainage site that is open. There are no peritoneal signs. He is moving his extremities. Neurologically is awake and alert. Test Results: None Emergency Department Course and Treatment: Patient will be started on Keflex 500 mg 4 times daily for 10 days. He will be given a home pack and [place] for pain. He is going to call his [facility] keying machine operator tomorrow for repeat evaluation. He does not have a scheduled appointment for at least another week and I told him he needs to get in before that. Treatment Plan: Keflex 500 4 times daily. Disposition: discharge Impression: Abdominal wall surgical site infection with cellulitis Status post partial nephrectomy This note was generated with ElementsLocal dictation software. It may contain incorrect words, spelling, and punctuation that were not noted in review of the chart prior to signing ED Disposition - Plan for ED Patient: Chief Complaint: Wound Check Referrals: Jameson Herrera MD [Primary Care Provider] - What to do if you have Problems For any increased pain, shortness of breath, bleeding, nausea or vomiting, chest pain, or any unexpected problems, contact your Primary Care Provider. Call [facility] ([phone]) or report to the closest Emergency Room. Call 911 if necessary. 03/16/18 0030 <Electronically signed by Derek Epps MD> Date Derek Epps MD Cosigner Signature (If Indicated): Date CC: Jameson Herrera MD DISCHARGE INSTRUCTION Observed: 03/16/2018 Status: F Source: JESUS 12:30 AM [facility] REPOSITORY [facility] Medical Records Department [address] [place] [address] Discharge Instruction 03/15/18 2322 MR#: [id number] Acct: [id number] Name: JORGE ROQUE Rep #: [id number] : 1975 42 From: Derek Epps MD PCP: Jameson Herrera MD Status: DEP ER ED Disposition - Plan for ED Patient: Disposition: Home or Assisted Living Chief Complaint: Wound Check Instructions: ED Wound Infec After Surgery Prescriptions: Cephalexin [Keflex] 500 mg PO Q6 #40 cap Additional Instructions: Call your kidney surgeon on Friday. You need to get in to see him in the next several days. He need to reevaluate the surgical wound. Next Keflex 1 pill 4 times a day for the infection. Return if feeling worse or develop a fever. What to do if you have Problems For any increased pain, shortness of breath, bleeding, nausea or vomiting, chest pain, or any unexpected problems, contact your Primary Care Provider. Call [facility] ([phone]) or report to the closest Emergency Room. Call 911 if necessary. 03/16/18 0030 <Electronically signed by Derek Epps MD> Date Derek Epps MD Cosigner Signature (If Indicated): Date CC: Jameson Herrera MD CNPN Observed: 03/16/2018 Status: COMPLETED Source: WAVERLY 12:00 AM [facility] REPOSITORY Telephone (AKURFL) JORGE ROQUE ([id number]) 1975 M Date Time Provider Department 03/16/18 YUSUF FAJARDO During your visit today, we recorded the following information about you: Doris Herrera [facility] 03/16/2018 10:48 AM Signed Pt called stated he is having an increase in pain today and is out of his pain meds. Pt is calling asking for a refill on his pain meds.Please advise. Doris Herrera [facility] Yusuf Fajardo DO, EDMUND, DO 03/16/2018 12:28 PM Signed Will need to slat pickler pain meds from [facility] Saini to Lori Lauren Doris Herrera [facility] 03/16/2018 1:23 PM Signed Called pt to advise to contact Dr lori Herrera [facility] Sherrill Francisco RN, RN 03/16/2018 1:43 PM Signed Spoke to pt and explained to him why he needs to get rx from Dr. Menard. Because his f/u appt is with him and he voices understanding Sherrill Francisco RN Allergies As of Date: 03/16/2018 (No Known Allergies) Date Reviewed: 03/09/2018 Reviewed by: Ximena (Rn) ANA LAURA Burris - Fully Assessed Reason for Visit: Pain [78] Primary Visit Diagnosis:Renal mass, right [N28.89] Order(s):CREATININE BLD [SQCRET] Order #: [id number] FUTURE XR CHEST 2V FRONTAL/LAT [[id number]] Order #: [id number] FUTURE CT ABDOMEN W IVCON [[id number]] Order #: [id number] FUTURE iv contrast (radiology procedure)CT ABD W -Inject, intravenously, once for 1 dose.No IV access, insert saline lock prior to the beginning of sedation, infusion, injection of imaging exam. Discontinue saline lock post exam. If Pt. has a central line or IVAD, may access for administration according to line specific nursing protocol. Once exam is complete flush line and de- access according to line specific nursing protocol in the CT contrast administration guidelines link.Disp: 1 EachRfl: 0 Prescriptions as of 03/16/2018 Sig: IV CONTRAST (RADIOLOGY PROCED* CT ABD W -Inject, intravenous* OXYCODONE-ACETAMINOPHEN 5 MG-* Take 1-2 tablets by mouth rusty* DOCUSATE SODIUM 100 MG CAPSULE Take 1 capsule by mouth twice* HYDROXYZINE HCL 25 MG TABLET SERTRALINE 50 MG TABLET Problem List As Of Date 03/16/2018 Noted Resolved Hypertension [I10] INVALID FOR* Left knee pain [M25.562] INVALID FOR* Patellar tendinitis [M76.50] INVALID FOR* Morbid obesity [E66.01] INVALID FOR* Right renal mass [N28.89] INVALID FOR* Obesity, Class III, BMI >= 40 E66.01 [E66.01] INVALID FOR* Renal mass, right [N28.89] INVALID FOR* Prescriptions ordered this encounter Disp Refills Start End IV CONTRAST (RADIOLOGY PROCEDURE) 1 Ea* 0 03/16/2018 Class: In Office Sig: CT ABD W -Inject, intravenously, once for 1 dose.No IV access, insert saline lock prior to the beginning of sedation, infusion, injection of imaging exam. Discontinue saline lock post exam. If Pt. has a central line or IVAD, may access for administration according to line specific nursing protocol. Once exam is complete flush line and de-access according to line specific nursing protocol in the CT contrast administration guidelines link. Encounter Status:Closed by DELMAR MENARD PA-C on 03/16/18 PROGRESS Observed: 03/14/2018 Status: COMPLETED Source: [place] 4:22 AM [facility] REPOSITORY HNO ID: [id number] Author: Downtime Note Service: (none) Author Type: (none) Type: Progress Notes Filed: 03/14/2018 4:37 AM Note Text: Epic Scheduled Downtime: 03/13/2018 11:34:32 PM to 03/14/2018 4:17:42 AM CNDS Observed: 03/11/2018 Status: COMPLETED Source: [place] 10:26 AM [facility] REPOSITORY HNO ID: [id number] Author: Azam Palacios Service: Urology Author Type: Resident Type: Discharge Summaries Filed: 03/11/2018 10:27 AM Note Text: Attestation signed by Yusuf Fajardo DO at 03/11/2018 10:47 AM Attending Note I evaluated the patient and personally participated in the parekh components. I agree with the resident's findings and plan as documented and have discussed the case and management of the patient's care with the resident. Signature: Yusuf Fajardo DO, MBA Date: 03/11/2018 Time: 10:47 AM DISCHARGE SUMMARY PATIENT NAME: Jorge Roque ADMISSION DATE: 03/09/2018 DISCHARGE DATE: 03/11/2018 Attending Physician: Yusuf Fajardo DO Reason for Hospitalization: Principal Problem: Renal mass, right Active Problems: Obesity, Class III, BMI >= 40 E66.01 Resolved Problems: * No resolved hospital problems. * Operations During Hospitalization: Right Robotic Partial Nx Hospital Course: Patient was admitted for the above surgery. Patient was transferred to the recovery unit and then to the regular nursing floor. POD 1 Diet was slowly advanced as tolerated. His woodward was removed. Activity level was gradually increased. Pain was controlled on oral medications. The patient was then deemed fit for discharge. MEMO was removed on POD 2. He was urinating well. No concerns. Okay for discharge. Labs and Procedures Pending at Discharge: No pending results. Consulting Teams During Hospitalization: NA Patient Condition @ Discharge: Stable Discharge Disposition: Home/Self Care Information Provided to Patient: See discharge instructions Discharge Medications: Current Discharge Medication List START taking these medications docusate sodium (COLACE) 100 mg Take 100 mg by mouth twice daily as needed. Qty: 30 capsule Refills: 0 oxyCODONE-acetaminophen (PERCOCET) 1-2 tablets Take 1-2 tablets by mouth every 6 hours as needed. Earliest Fill Date: 03/11/18 Qty: 20 tablet Refills: 0 Associated Diagnoses:Renal mass, right CONTINUE these medications which have NOT CHANGED hydrOXYzine HCl (ATARAX) 25 mg tablet sertraline (ZOLOFT) 50 mg tablet Future Appointments: Follow Up with Dr. Fajardo TIME OF CARE: Discharge Management: I personally spent less than 30 minutes involved in the discharge management of this patient. SIGNATURE: Azam Palacios MD DATE: March 11, 2018 TIME: 10:26 AM PROGRESS Observed: 03/11/2018 Status: COMPLETED Source: [place] 10:21 AM [facility] RE[facility]IT[facility] HNO ID: [id number] Author: Azam Palacios Service: Urology Author Type: Resident Type: Progress Notes Filed: 03/11/2018 10:22 AM Note Text: MEMO Removed All questions answered, no concerns DC planning Azam Palacios MD PROGRESS Observed: 03/11/2018 Status: COMPLETED Source: [place] 6:35 AM [facility] REPOSITORY HNO ID: [id number] Author: Joshua Larios Service: Urology Author Type: Physician Type: Progress Notes Filed: 03/11/2018 9:57 AM Note Text: UROLOGY PROGRESS NOTE PATIENT NAME: Jorge Roque DATE OF : 1975 ADMISSION DATE: 03/09/2018 9:17 AM Subjective Doing well. Simon Reg diet. Afebrile. Urinating well. UOP 1L. Ambulating. Objective VS: BP 111/51 Pulse 95 Temp 36.7 ?C (98.1 ?F) (Temporal Artery) Resp 18 Ht 172.7 cm (5' 8) Wt (!) 172.4 kg (380 lb) SpO2 93% BMI 57.78 kg/m2 I AND O - 24hr: Intake/Output Summary (Last 24 hours) at 03/11/18 0635 Last data filed at 03/11/18 0300 Gross per 24 hour Intake 1200 ml Output 1260 ml Net -60 ml Physical Exam: General: Neck: Resp: Abdomen: No acute distress Supple Normal effort Soft, non-tender, nondistended : Inc with dominguez.MEMO ss 260cc Labs and Imaging Studies LABS: BMP: Glucose (mg/dL) Date Value 03/11/2018 111 Potassium (mEq/L) Date Value 03/11/2018 3.9 Sodium (mEq/L) Date Value 03/11/2018 135 Chloride (mEq/L) Date Value 03/11/2018 104 CO2 (mEq/L) Date Value 03/11/2018 27 Creatinine (mg/dL) Date Value 03/11/2018 0.88 BUN (mg/dL) Date Value 03/11/2018 9 Anion Gap (no units) Date Value 03/11/2018 8 Calcium (mg/dL) Date Value 03/11/2018 7.6 CBC: Hemoglobin (g/dL) Date Value 02/16/2018 14.5 HGB (g/dL) Date Value 03/11/2018 12.1 Hematocrit (%) Date Value 03/11/2018 37.7 WBC (thou/cmm) Date Value 03/11/2018 12.54 Platelet Count (thou/cmm) Date Value 03/11/2018 151 Urinalysis: Specific [place], Ur Date Value Ref Range Status 01/27/2018 1.030 1.005 - 1.030 Final Glucose, Urine Date Value Ref Range Status 01/27/2018 neg Neg mg/dL Final Bilirubin, Urine Date Value Ref Range Status 01/27/2018 neg Neg Final Ketones, Urine Date Value Ref Range Status 01/27/2018 trace Neg Final Hemoglobin/Blood,Ur Date Value Ref Range Status 01/27/2018 neg Neg Final Protein, Urine Date Value Ref Range Status 01/27/2018 neg Neg mg/dL Final Urobilinogen, Urine Date Value Ref Range Status 01/27/2018 0.2 Normal (<1.1) EU Final Nitrites Date Value Ref Range Status 01/27/2018 neg Neg Final Leukocytes Date Value Ref Range Status 01/27/2018 neg Neg Final Urine Culture: Urine Culture (no units) Date Value 03/05/2018 Mixed skin roopa. No further identification or susceptibility testing will be performed. Please submit a new specimen. Plates will be held for 5 days. RADIOLOGY: Assessment and Plan ASSESSMENT: 42 year old male POD2 Robo R Partial Nx PLAN: Reg diet Ambulate, IS Bowel regimen Hg stable MEMO Cr wnl, 260cc ouput, will d/w Dr. Scotty izaguirre DC planning Azam Palacios MD I saw and evaluated the patient. Discussed with the resident and agree with resident's findings and plan as documented in the resident's note. Good UOP, clinically stable, cont reg diet and d/c planning Joshua Larios MD HEMOGRAM/DIFF Collected: 03/11/2018 Status: F Source: [facility] 3:44 AM [facility]ALTH SYSTEM REPOSITORY TYPE CODE TESTS RESULT OUT OF REFERENCE UNITS RANGE LAB WBC(LOINC) 4.23-9.07 thou/cmm WBC High 12.54 LAB RBC(LOINC) 4.63-6.08 mil/cmm Low RBC 4.18 LAB HGB(LOINC) 13.7-17.5 g/dL Low Hgb 12.1 LAB HCT(LOINC) 40.1-51.0 % Low Hct 37.7 LAB MCV(LOINC) 83.2-95.6 fl MCV 90.2 LAB MCH(LOINC) 25.7-32.2 pg MCH 28.9 LAB MCHC(LOINC 32.3-36.5 % ) Low MCHC 32.1 LAB RDW(LOINC) 11.6-14.4 % RDW 13.7 LAB RDWSD(LOIN 36.1-45.8 fl C) RDW SD 45.0 LAB PLT(LOINC) 141-365 thou/cmm Platelet 151 LAB MPV(LOINC) 8.7-12.0 fl MPV 11.5 LAB SEG(LOINC) % Seg Neutrophil 78.3 LAB IGRE(LOINC % ) Immature Grans 0.60 LAB LYMPH(LOIN % C) Lymphocyte 8.3 LAB MNO(LOINC) % Monocyte 12.5 LAB EOSIN(LOIN % C) Eosinophil 0.1 LAB BASO(LOINC % ) Basophil 0.2 LAB SEGN(LOINC 1.78-5.38 thou/cmm ) Abs. High Neut 9.82 LAB IGAB(LOINC 0.00-0.05 thou/cmm ) Abs High Immature Grans 0.08 LAB LYMN(LOINC 0.84-2.85 thou/cmm ) Abs. Lymph 1.04 LAB MONON(LOIN 0.30-0.82 thou/cmm C) Abs. High [place] 1.57 LAB EOSN(LOINC 0.04-0.54 thou/cmm ) Low Abs. Eosin 0.01 LAB BASON(LOIN 0.01-0.08 thou/cmm C) Abs. Baso 0.03 Performed By: #### CBCD1 #### [place] [address] BASIC PANEL Collected: 03/11/2018 Status: F Source: [facility] 3:44 AM HEALTH SYSTEM REPOSITORY TYPE CODE TESTS RESULT OUT OF REFERENCE UNITS RANGE LAB NA(LOINC) 136-145 mEq/L Low Sodium Blood 135 LAB K(LOINC) 3.5-5.1 mEq/L Potassium Blood 3.9 LAB CL(LOINC) 98-107 mEq/L Chloride Blood 104 LAB CO2(LOINC) 21-32 mEq/L CO2 Blood 27 LAB GLU(LOINC) 70-99 mg/dL Glucose High Blood 111 LAB BUN(LOINC) 7-18 mg/dL BUN Blood 9 LAB CREA(LOINC 0.67-1.17 mg/dL ) Creatinine Blood 0.88 LAB CA(LOINC) 8.5-10.1 mg/dL Low Calcium Blood 7.6 LAB ANGAP(LOIN 8-16 C) Anion Gap 8 Performed By: #### P8 #### [place] [address] MDRD GFR Collected: 03/11/2018 Status: F Source: [facility] 3:44 AM HEALTH SYSTEM REPOSITORY TYPE CODE TESTS RESULT OUT OF RANGE REFERENCE UNITS LAB GFRFN(LOINC >60mL/min/1.73m ) 2 eGFR >60 Result Comment: If the patient is , multiply the result by 1.210. Performed By: #### GFR #### [facility] [address] [place] [address] CNPN Observed: 03/11/2018 Status: COMPLETED Source: [facility] 12:00 AM CLINIC OTHER CAMPUS REPOSITORY Telephone (AKURFL) JORGE ROQUE ([id number]) 1975 M Date Time Provider Department 03/11/18 YUSUF FAJARDO During your visit today, we recorded the following information about you: Yusuf Fajardo DO, MBA, DO 03/11/2018 10:51 AM Signed Status post robotic partial nephrectomy Needs f/u in 05/26 days with Lori for staple removal F/U with me in March 26 Thanks Real Alcaraz Ma 03/11/2018 1:22 PM Signed Attempted to contact pt on both home and mobile phone and message that the numberw are not in service. Will attempt again later. Real Kilpatrick 03/12/2018 2:31 PM Signed Per [facility] paperwork from 03/09/18 patient does not have a phone.-MICHAEL Fajardo DO, MBA, DO 03/12/2018 3:26 PM Signed Please continue to try the numbers that we have listed Real Alcaraz Ma 03/13/2018 4:57 PM Signed Appointment scheduled for staple removal and sent via US mail to patient. Real Alcaraz Ma Allergies As of Date: 03/11/2018 (No Known Allergies) Date Reviewed: 03/09/2018 Reviewed by: Ximena (Rn) ANA LAURA Burris - Fully Assessed Reason for Visit: Post Op Call [[id number]] Prescriptions as of 03/11/2018 Sig: X DOCUSATE SODIUM 100 MG CAPSULE Take 1 capsule by mouth twice* X OXYCODONE-ACETAMINOPHEN 5 MG-* Take 1-2 tablets by mouth rusty* HYDROXYZINE HCL 25 MG TABLET SERTRALINE 50 MG TABLET Problem List As Of Date 03/11/2018 Noted Resolved Hypertension [I10] INVALID FOR* Left knee pain [M25.562] INVALID FOR* Patellar tendinitis [M76.50] INVALID FOR* Morbid obesity [E66.01] INVALID FOR* Right renal mass [N28.89] INVALID FOR* Obesity, Class III, BMI >= 40 E66.01 [E66.01] INVALID FOR* Renal mass, right [N28.89] INVALID FOR* Encounter Status:Closed by YUSUF FAJARDO DO, MBA on 03/11/18 PROGRESS Observed: 03/10/2018 Status: COMPLETED Source: [facility] 4:04 PM CLINIC OTHER [place] REPOSITORY HNO ID: [id number] Author: Azam Palacios Service: Urology Author Type: Resident Type: Progress Notes Filed: 03/10/2018 4:05 PM Note Text: PM Rounds: Doing well. Ambulating. 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 No Advance Directive: Health Literacy: 1. How often do you need to have someone help you when you read instructions, pamphlets, or other written material from your doctor or pharmacy? Never - 1 2. How confident are you filling out medical forms by yourself? Extremely - 1 If Patient scores > 3 on either question, the following interventions were put into place: Forms of communication used with patient and family, Teach back methods employed to ensure comprehension, Sit with Patient, Gave Patient the opportunity to ask questions and Patient did not score > 3 FUNCTIONAL AND COGNITIVE/BEHAVIORAL PRIOR TO ADMISSION: Baseline Mental Status: Alert AND Oriented, Person, Place , Time and Situation Functional Status: Independent Does Patient Currently Receive Any Community Services or Home Care? None Equipment Prior to Admission: None Has the Patient Been in a Shelter Facility in the Past 30 days? No SOCIAL: Living Arrangement: Home Lives With: Alone Financial Resources: employed Primary Contact: Extended Emergency Contact Information Primary Emergency Contact: MyaAleksey Mobile Relation: Brother Secondary Emergency Contact: MyaKylee Address: [address] [place] [address] Mobile Relation: Mother Supportive: Yes Other Important Patient Contacts: None Caregiver Assessment: Caregiver is ready, willing and able to meet the patient's needs as recommended by the inter-professional team? Yes Patient's transition needs and plan for meeting these needs: To be determined Does the patient have an acute stroke diagnosis, or has the patient had a stroke during this admission? No Medication Adherence: I am convinced of the importance of my prescription medication: Agree completely - 0 I worry that my prescription medication will do more harm than good to me Disagree completely - 0 I feel financially burdened by my tkh-vv-vwleiv expenses for my prescription medication: Disagree completely - 0 Patient is categorized as low risk < 2 Are you interested in bedside delivery of your medications? No Food Concerns: In the Last Month, Have You had Trouble Getting Food? No trouble getting food During the Last Month, Have You Worried Whether Your Food Would Run Out Before You Had Enough Money to Buy More? No Is the Patient Psychosocially Complex? 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 +PCP. +Rx coverage. No DME. Anticipate return home when medically stable. SIGNATURE: Danish Becerra RN PATIENT NAME: Jorge Roque DATE: March 10, 2018 TIME: 11:18 AM PAGER/CONTACT #: [phone] PROGRESS Observed: 03/10/2018 Status: COMPLETED Source: [facility] 8:02 AM CLINIC OTHER CAMPUS REPOSITORY HNO ID: [id number] Author: Yusuf Fajardo DO Service: Urology Author Type: Physician Type: Progress Notes Filed: 03/11/2018 10:46 AM Note Text: UROLOGY PROGRESS NOTE PATIENT NAME: Jorge Roque DATE OF : 1975 ADMISSION DATE: 03/09/2018 9:17 AM Subjective No acute events overnight. Afebrile. Up in chair. Simon CLD. Urine clear. C/o soremess Objective VS: BP (!) 103/48 Pulse 78 Temp 36.4 ?C (97.5 ?F) (Temporal Artery) Resp 18 Ht 172.7 cm (5' 8) Wt (!) 172.4 kg (380 lb) SpO2 95% BMI 57.78 kg/m2 I AND O - 24hr: Intake/Output Summary (Last 24 hours) at 03/10/18 0803 Last data filed at 03/10/18 0600 Gross per 24 hour Intake 4770 ml Output 1115 ml Net 3655 ml Physical Exam: General: Neck: Resp: Abdomen: No acute distress Supple Normal effort Soft, non-tender, nondistended : Inc with dominguez.MEMO ss 220cc, [place] yellow Labs and Imaging Studies LABS: BMP: Glucose (mg/dL) Date Value 03/10/2018 113 Potassium (mEq/L) Date Value 03/10/2018 4.4 Sodium (mEq/L) Date Value 03/10/2018 137 Chloride (mEq/L) Date Value 03/10/2018 106 CO2 (mEq/L) Date Value 03/10/2018 27 Creatinine (mg/dL) Date Value 03/10/2018 0.96 BUN (mg/dL) Date Value 03/10/2018 14 Anion Gap (no units) Date Value 03/10/2018 8 Calcium (mg/dL) Date Value 03/10/2018 8.1 CBC: Hemoglobin (g/dL) Date Value 02/16/2018 14.5 HGB (g/dL) Date Value 03/10/2018 13.7 Hematocrit (%) Date Value 03/10/2018 43.9 WBC (thou/cmm) Date Value 03/10/2018 12.85 Platelet Count (thou/cmm) Date Value 03/10/2018 192 Urinalysis: Specific [place], Ur Date Value Ref Range Status 01/27/2018 1.030 1.005 - 1.030 Final Glucose, Urine Date Value Ref Range Status 01/27/2018 neg Neg mg/dL Final Bilirubin, Urine Date Value Ref Range Status 01/27/2018 neg Neg Final Ketones, Urine Date Value Ref Range Status 01/27/2018 trace Neg Final Hemoglobin/Blood,Ur Date Value Ref Range Status 01/27/2018 neg Neg Final Protein, Urine Date Value Ref Range Status 01/27/2018 neg Neg mg/dL Final Urobilinogen, Urine Date Value Ref Range Status 01/27/2018 0.2 Normal (<1.1) EU Final Nitrites Date Value Ref Range Status 01/27/2018 neg Neg Final Leukocytes Date Value Ref Range Status 01/27/2018 neg Neg Final Urine Culture: Urine Culture (no units) Date Value 03/05/2018 Mixed skin roopa. No further identification or susceptibility testing will be performed. Please submit a new specimen. Plates will be held for 5 days. RADIOLOGY: Assessment and Plan ASSESSMENT: 42 year old male POD1 Robo R Partial Nx PLAN: CLD DC woodward Ambulate, IS Bowel regimen Hg stable MEMO Cr wnl, maintain for now 220cc Subq alfredain Azam Palacios MD Attending Note I evaluated the patient and personally participated in the parekh components. I agree with the resident's findings and plan as documented and have discussed the case and management of the patient's care with the resident. Signature: Yusuf Fajardo DO, MBA Date: 03/10/2018 Time: 6:30PM HEMOGRAM Collected: 03/10/2018 Status: F Source: [facility] 3:51 AM [facility] REPOSITORY TYPE CODE TESTS RESULT OUT OF REFERENCE UNITS RANGE LAB WBC(LOINC) 4.23-9.07 thou/cmm High WBC 12.85 LAB RBC(LOINC) 4.63-6.08 mil/cmm RBC 4.87 LAB HGB(LOINC) 13.7-17.5 g/dL Hgb 13.7 LAB HCT(LOINC) 40.1-51.0 % Hct 43.9 LAB MCV(LOINC) 83.2-95.6 fl MCV 90.1 LAB MCH(LOINC) 25.7-32.2 pg MCH 28.1 LAB MCHC(LOINC) 32.3-36.5 % Low MCHC 31.2 LAB RDW(LOINC) 11.6-14.4 % RDW 13.8 LAB RDWSD(LOINC 36.1-45.8 fl ) RDW SD 45.8 LAB PLT(LOINC) 141-365 thou/cmm Platelet 192 LAB MPV(LOINC) 8.7-12.0 fl MPV 11.1 Performed By: #### CBC1 #### [facility] [address] [place] [address] CREATININE, FLUID Collected: 03/10/2018 Status: F Source: [facility] 3:51 AM HEALTH SYSTEM REPOSITORY TYPE CODE TESTS RESULT OUT OF RANGE REFERENCE UNITS LAB CREAF(LOINC mg/dL ) 0.9 Creatinine, Fluid Result Comment: Performance characteristics of this assay have not been evaluated for body fluids. No reference range has been established. Test analyzed by the Siemens's Sultan method. LAB BFTYP(LOINC) Specimen Peritoneal Type Performed By: #### CREBF #### [facility] [address] [place] [address] BASIC PANEL Collected: 03/10/2018 Status: F Source: [facility] 3:51 AM HEALTH SYSTEM REPOSITORY TYPE CODE TESTS RESULT OUT OF REFERENCE UNITS RANGE LAB NA(LOINC) 136-145 mEq/L Sodium Blood 137 LAB K(LOINC) 3.5-5.1 mEq/L Potassium Blood 4.4 LAB CL(LOINC) 98-107 mEq/L Chloride Blood 106 LAB CO2(LOINC) 21-32 mEq/L CO2 Blood 27 LAB GLU(LOINC) 70-99 mg/dL Glucose High Blood 113 LAB BUN(LOINC) 7-18 mg/dL BUN Blood 14 LAB CREA(LOINC 0.67-1.17 mg/dL ) Creatinine Blood 0.96 LAB CA(LOINC) 8.5-10.1 mg/dL Low Calcium Blood 8.1 LAB ANGAP(LOIN 8-16 C) Anion Gap 8 Performed By: #### P8 #### [place] [address] MDRD GFR Collected: 03/10/2018 Status: F Source: [facility] 3:51 AM HEALTH SYSTEM REPOSITORY TYPE CODE TESTS RESULT OUT OF RANGE REFERENCE UNITS LAB GFRFN(LOINC >60mL/min/1.73m ) 2 eGFR >60 Result Comment: If the patient is , multiply the result by 1.210. Performed By: #### GFR #### [facility] [address] [place] [address] ANES POST Observed: 03/09/2018 Status: COMPLETED Source: [facility] 11:04 PM CLINIC OTHER CAMPUS REPOSITORY O ID: [id number] Author: Blaine Fontenot Service: Anesthesiology Author Type: Physician Type: Anesthesia PostOp Filed: 03/09/2018 11:04 PM Note Text: POST ANESTHESIA EVALUATION NOTE SERVICE DATE: 03/09/2018 SERVICE TIME: 11:04 PM : 1975 Vitals: 03/09/18 1909 03/09/18 1919 03/09/18202103/09/182117 Temp: 36.1 ?C (97 ?F) 36.1 ?C (97 ?F) 36.5 ?C (97.7 ?F) 36.5 ?C (97.7 ?F) 03/09/18199903/09/18201403/09/18202903/09/182117 BP: 102/72 98/57 116/78 126/70 03/09/18201403/09/18202303/09/18202903/09/182117 Pulse: 70 72 61 60 03/09/18201403/09/18202303/09/18202903/09/182117 Resp: 14 12 18 03/09/18201403/09/18202303/09/18202903/09/182117 SpO2: 97% 97% 96% 94% Validated Vital Signs: Yes POST ANES STATUS: No apparent anesthetic complications. The patient is appropriately hydrated with stable respiratory and cardiovascular status. Patient has safe and adequate airway control. The patient has appropriate pain relief and no significant post operative nausea or vomiting. The patient has achieved baseline mental status. Further assessment by Anesthesia Service: None Other Remarks: SIGNATURE: Blaine Fontenot DO PATIENT NAME: Jorge Roque DATE: March 09, 2018 TIME: 11:04 PM PAGER/CONTACT #: [phone] NURSING PROG Observed: 03/09/2018 Status: COMPLETED Source: [facility] 4:25 PM [facility] REPOSITORY HNO ID: [id number] Author: Melony (Rn) ANA LAURA Stover Service: (none) Author Type: Registered Nurse Type: Nursing Progress Note Filed: 03/09/2018 5:25 PM Note Text: FAMILY WAITING ROOM CALLED AND UPDATED THAT SURGERY IS PROGRESSING. FAMILY WAITING ROOM CALLED AND UPDATED THAT SURGERY IS PROGRESSING AT 1725. OPERATIVE NO Observed: 03/09/2018 Status: COMPLETED Source: [facility] 1:35 PM [facility] REPOSITORY HNO ID: [id number] Author: Yusuf Fajardo DO Service: Urology Author Type: Physician Type: Operative Report Filed: 03/09/2018 7:06 PM Note Text: DOS: March 09, 2018 Pre-op Diagnosis: R Renal Mass Post-op Diagnosis: SAME Operation: RIGHT PARTIAL NEPHRECTOMY (laparoscopic with robotic assistance) Intraoperative diagnostic ultrasound of kidney and retroperitoneum Surgeon : Scotty Keying Machine Operator: Suzanne Anesthesia: General Special Consideration: Modifier Indications:Jorge J Mya is a 42 year old year-old male who was referred to [facility] for treatment of a right sided renal mass. The patient was recommended to undergo Right -sided partial nephrectomy with da Della surgical robot. All risks, benefits and alternatives were discussed, and all questions were answered prior to proceeding. Individual considerations: Mass location and side: Right midpole Hilar clamp time: 19 minutes EBL: 400 ml Procedure : Informed consent was obtained. General anesthesia was administered. A [place] catheter was placed. A nasogastrictube was placed by anesthesia. Patient was placed in the right flank position . All the pressure points were padded and patient secured to the table with adhesive tapes. STEP 1; PORT PLACEMENT Pneumoperitoneum of 20 mmHg was created by placing a Veress needle through in through an incision made at the lateral boarder of rectus at the level of the 12th rib. Using a visiport a 12-mm cannula was placed through this incision. A 30? binocular telescope, down, was then placed through the camera port. All other ports were placed under direct vision. Three 8 mm robotic ports one on right side and two on left side of camera port, one 12 mm airseal port was placed just lateral to umbilicus and one 5 mm right port was placed at midline superior to umbilicus for liver retractor. After placing the ports the pneumoperitoneum pressure was decreased to 15 mmHg. The surgical cart was then docked to the ports. STEP 2; Exposure of kidney The peritoneum was incised from Cecum to hepatic flexure lateral to the white line of Toldt. The colon was then reflected medially. Care was taken not to dissect in and lateral to fascia of Gerota. The second part of duodenum was carefully reflected medially. The gonadal vein was identified. However due to the extensive amount of fat, the entire dissection was incredibely difficult. There was a small tear in the gonadal vein which was oversewn with 3-0 silk suture. We were eventually able to expose the renal hilum, but initially dissected out the adrenal vein then readjusted our dissection more inferior. STEP 3; HILAR DISSECTION The renal hilum was carefully dissected to isolate the renal vessels. Single renal vein and distally branching renal artery were found and isolated and skeletenized free of hilar fat. STEP 4: EXCISION OF THE TUMOR At this point, the all of perinephric fat was cleaned off the renal capsule. Intraoperative ultrasound using a 7.5 mHz flexitip lap probe confirmed this to be the renal mass as this correlated with the preop imaging with respect to size and location. Under ultrasound guidance, monopolar cautery was used to score around this lesion on the capsule. Once ready to proceed, the renal artery branches were clamped by 2 straight robotic bulldogs clamps and then we proceeded to excise the mass using monopolar curved shane without any cautery, following its observable plane abutting the renal parenchyma and staying out of the mass. There was an observable plane that extended all the way around the mass, throughout the base. STEP 5: REPAIR AND RENORRAPHY Two running 3-0 V lock l sutures, anchored with hemolock clips were used to suture the vasculature and calyceal opening in the resection bed. Renorraphy was performed with a running mattress and clipping two 0 Vlock sutures. Rhe V locks were cinched down over with 10mm weck clips and . The bulldogs clamp were removed and the defect was watched for 5 minutes and hemostasis was well achieved. Snow and Tessell were placed over the renorraphy and hilum, liver bed and insertion of gonadal. The renal bed was inspected and confirmed to have good hemostasis. The rest of the kidney regained normal color and the defect was determined to be completely dry.Perinephric fat was used to cover over the defect. All additional clots were then irrigated out and a 19 round MEMO drain was placed under vision. The specimen was retreived with a 12mm endocatch bag. STEP 6; SPECIMEN RETRIEVAL The specimen within the retrieval bag was removed after enlarging the periumbilical port . The incision was e closed en-mass using PDS#1. The fascia at 12 mm ports was closed with 0 VIcryl. Skin was closed by skin staplers. Patient tolerated the procedure well. Azam Palacios MD I was present for the entire surgery including the critical and parekh portions of the surgery and I was immediately available to provide assistance. Yusuf RUTHERFORD PREOP Observed: 03/09/2018 Status: COMPLETED Source: [facility] 11:50 AM [facility] OTHER CAMPUS REPOSITORY HNO ID: [id number] Author: Carlos Rodríguez Service: Anesthesiology Author Type: Physician Type: Anesthesia PreOp Filed: 03/09/2018 12:02 PM Note Text: ANESTHESIOLOGY DAY OF SURGERY NOTE SERVICE DATE: 03/09/2018 SERVICE TIME: 11:50 AM : 1975 Procedure(s) (LRB): ROBOTIC LAPAROSCOPIC RIGHT PARTIAL NEPHRECTOMY (Right) Surgeon(s): Yusuf Fajardo DO Estimated body mass index is 57.78 kg/(m2) as calculated from the following: Height as of this encounter: 172.7 cm (5' 8). Weight as of this encounter: 172.4 kg (380 lb). Most recent hematocrit and potassium results: Hematocrit 48.4 03/05/2018 Potassium 4.7 03/05/2018 ANES DOS/PREOP NOTE: Vitals: 03/07/18 1600 03/09/18 1038 BP: 129/82 Pulse: 75 Resp: 18 Temp: 36.4 ?C (97.5 ?F) SpO2: 99% Weight: (!) 172.4 kg (380 lb) Height: 172.7 cm (5' 8) ACTIVE PROBLEM LIST Hypertension Left Knee Pain Patellar Tendinitis Morbid Obesity (Hcc) Right Renal Mass Obesity, Class III, BMI >= 40 E66.01 PAST MEDICAL HISTORY Diagnosis Date - Hypertension - Morbid obesity (HCC) - Opioid use disorder, mild, abuse see below - Substance abuse cocaine and cannabis per counseling center notes, seeing counseling center PAST SURGICAL HISTORY Procedure Laterality Date - REPAIR UMBILICAL IONA,5+Y/O,REDUC 3-7-13 FAMILY HISTORY Problem Relation Age of Onset - Hypertension Father - Arthritis Father - Diabetes Father - obesity [OTHER] Father - Hypertension Paternal Grandmother - Heart Paternal Grandmother - Diabetes Paternal Grandmother - renal failure [OTHER] Paternal Grandmother - Hypertension Paternal Grandfather - Heart Paternal Grandfather - Diabetes Paternal Grandfather Social History: Social History Substance Use Topics - Smoking status: Never Smoker - Smokeless tobacco: Never Used - Alcohol use No No current facility-administered medications on file prior to encounter. Current Outpatient Prescriptions on File Prior to Encounter: sertraline (ZOLOFT) 50 mg tablet Current Facility-Administered Medications: ceFAZolin 3 g in D5W 100 mL (ANCEF) 3 g INTRAVENOUS ONCE Yusuf Fajardo DO Allergies: ALLERGIES No Known Allergies DOS EXAM: Adequate NPO status: Yes Anesthetic risks, benefits, alternatives, personnel and consent discussed: Yes Patient agrees to proceed: Yes Previous Anesthesia: No history of adverse event. Airway Assessment: MP 2; Neck ROM: Full ROM without neurologic symptoms; Airway Evaluation: Short Neck, Thick neck and Boucher Present Symptoms of Sleep Apnea: BMI > 35, Neck circumference > 15.75 inches and Male gender Dentition: Teeth intact Poor dentition Additional Physical Exam: Lungs: Patient health status unchanged since recent history and physical. See history and physical for exam findings. Cardiac: Patient health status unchanged since recent history and physical. See history and physical for exam findings. Additional Pertinent Findings: N/A Blood Products: Not anticipated for this procedure. Anesthetic Plan: General, Standard ASA Monitors and 2 IVs Pain Management Plan: Parenteral or Oral ASA Class: 3 Other Medical Problems: None Chronic Beta Kelin medication administered within 24 hours: N/A I have interviewed and examined the patient. I have reviewed the medical record and/or the pre-anesthesia evaluation, pertinent labs, and test results. Significant changes in the patient's condition since the History and Physical, not otherwise documented in primary service progress notes: No This contains updated information obtained within 48 hours of Surgery/Procedure. 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 TUMOR SIZE: 3 CM IN GREATEST DIMENSION. MARGINS NEGATIVE FOR TUMOR. 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 Kidney Cancer Case Summary Procedure: Partial nephrectomy. Specimen laterality: Right. Tumor size: 3 x 2.7 x 2.7 cm. Tumor focality: Unifocal. Histologic type: Clear cell renal cell carcinoma. Sarcomatoid features: Not identified. Rhabdoid features: Not identified. Histologic grade: WHO/ISUP grade 2. Tumor necrosis: Not identified. Tumor extension: Tumor limited to kidney. Margins: Uninvolved by invasive carcinoma. Regional lymph nodes: Not sampled. Pathologic stage: pT1a. OPERATIVE PROCEDURE: Robotic laparoscopic partial nephrectomy CLINICAL INFORMATION: Renal mass [N28.89] GROSS DESCRIPTION: Right renal mass Received in formalin labeled right renal mass is a specimen consisting of a segment of kidney measuring 6.0 x 4.0 x 2.0 cm and weighing 43 gm. A renal artery, vein, pelvis and ureter are not present in the specimen. A portion of renal sinus fat is not identified within the specimen. The parenchymal line of resection is inked blue and the soft tissue is inked black. The specimen is sectioned to reveal a well circumscribed, yellow to red solid mass measuring 3.0 x 2.7 x 2.7 cm. Focal areas of hemorrhage are identified. No necrosis or softening is seen. The tumor extends within 1 mm of the parenchymal line of resection and capsule. The tumor does not grossly appear to bulge into the renal sinus. Tumor is not present at the inked parenchymal margin of resection. It Infrastructure Engineer sections are submitted as follows: 1-2 - mass in relationship to nearest parenchymal line of resection; 3-4 - mass in relationship to nearest capsule/soft tissue margin; 5 - customer relations representative section of uninvolved renal parenchyma. ARH:naima SARGENT M.D.,PATHOLOGIST (Electronic signature on file) Signed out: 03/13/2018 16:52 PRINTED: 03/13/2018 Page 1 of 1 Performed By: #### SURG #### [place] [address] CHEST 2 VIEWS Observed: 03/05/2018 Status: F Source: [place] [id number] 2:15 PM HEALTH SYSTEM REPOSITORY Performed at [facility] APPROVED BY: WILLIAM WOOD MD EXAMINATION: CHEST RADIOGRAPH (2 VIEW FRONTAL & LATERAL) Clinical History: Preoperative examination prior to kidney surgery. MQ: XC2_5 Comparison: None RESULT: There has been a relatively shallow inspiration, with bibasilar atelectasis. The heart is normal in size. There is no geneva pulmonary consolidation, pleural effusion, pneumothorax, or pulmonar y vascular redistribution. There is multilevel degenerative change seen within the thoracic spine. IMPRESSION: Relatively shallow inspiration, with bibasilar atelectasis. No acute pulmonary process is identified. HEMOGRAM Collected: 03/05/2018 Status: F Source: [facility] 1:32 HEALTH SYSTEM REPOSITORY TYPE CODE TESTS RESULT OUT OF REFERENCE UNITS RANGE LAB WBC(LOINC) 4.23-9.07 thou/cmm WBC 7.59 LAB RBC(LOINC) 4.63-6.08 mil/cmm RBC 5.37 LAB HGB(LOINC) 13.7-17.5 g/dL Hgb 15.0 LAB HCT(LOINC) 40.1-51.0 % Hct 48.4 LAB MCV(LOINC) 83.2-95.6 fl MCV 90.1 LAB MCH(LOINC) 25.7-32.2 pg MCH 27.9 LAB MCHC(LOINC) 32.3-36.5 % Low MCHC 31.0 LAB RDW(LOINC) 11.6-14.4 % RDW 13.6 LAB RDWSD(LOINC 36.1-45.8 fl ) RDW SD 45.1 LAB PLT(LOINC) 141-365 thou/cmm Platelet 186 LAB MPV(LOINC) 8.7-12.0 fl MPV 11.8 Performed By: #### CBC1 #### [place] [address] BASIC PANEL Collected: 03/05/2018 Status: F Source: [facility] 1:32 HEALTH SYSTEM REPOSITORY TYPE CODE TESTS RESULT OUT OF REFERENCE UNITS RANGE LAB NA(LOINC) 136-145 mEq/L Sodium Blood 139 LAB K(LOINC) 3.5-5.1 mEq/L Potassium Blood 4.7 LAB CL(LOINC) 98-107 mEq/L Chloride Blood 105 LAB CO2(LOINC) 21-32 mEq/L CO2 Blood 32 LAB GLU(LOINC) 70-99 mg/dL Glucose Blood 74 LAB BUN(LOINC) 7-18 mg/dL BUN Blood 11 LAB CREA(LOINC 0.67-1.17 mg/dL ) Creatinine Blood 0.82 LAB CA(LOINC) 8.5-10.1 mg/dL Calcium Blood 8.7 LAB ANGAP(LOIN 8-16 C) Low Anion Gap 7 Performed By: #### P8 #### [place] [address] MDRD GFR Collected: 03/05/2018 Status: F Source: [facility] 1:32 PM HEALTH SYSTEM REPOSITORY TYPE CODE TESTS RESULT OUT OF RANGE REFERENCE UNITS LAB GFRFN(LOINC >60mL/min/1.73m ) 2 eGFR >60 Result Comment: If the patient is , multiply the result by 1.210. Performed By: #### GFR #### [facility] [address] [place], [place] [address] TYPE AND SCREEN Collected: 03/05/2018 Status: F Source: [facility] 1:32 PM HEALTH SYSTEM REPOSITORY TYPE CODE TESTS RESULT OUT OF REFERENCE UNITS RANGE LAB ABO(LOINC) O ABO Group LAB GENERAL SUPERINTENDENT(LOINC ) RH Type Positive LAB ABSCR(LOIN C) Antibody NEGATIVE Screen LAB BBCMT(LOIN C) Comment PAT specimen Performed By: #### T&S #### [address] [address] HISTORY PHYSICAL Observed: 03/05/2018 Status: COMPLETED Source: [place] 1:26 PM CLINIC OTHER CAMPUS REPOSITORY O ID: [id number] Author: Cathy Tipton (Veneer Jointer) Tiago Service: (none) Author Type: Nurse Practitioner Type: HANDP Filed: 03/05/2018 1:35 PM Note Text: HISTORY AND PHYSICAL EXAMINATION SERVICE DATE: 03/05/2018 SERVICE TIME: 1:26 PM PRIMARY CARE PHYSICIAN: Jameson Herrera MD The patient has the following: ACTIVE PROBLEM LIST Hypertension Left Knee Pain Patellar Tendinitis Morbid Obesity (Hcc) Right Renal Mass Subjective CHIEF COMPLAINT: Right renal mass HPI: This is a 42 year old male with c/o above recently diagnosed incidentally after hurting his right ribs on a fall. Ct Scan done in ER showing spot on kidney (4 cm). Referred to urology surgeon. Admits to occasional right flank pain described as sharp throbbing, unable to sleep on right side due to pain. Had second Ct Scan and MRI confirming renal mass. Denies any other symptoms including urgency frequency hematuria fever chills. After discussion with the surgeon the patient agrees to surgical intervention. PAST MEDICAL HISTORY Diagnosis Date - Hypertension - Morbid obesity (HCC) - Opioid use disorder, mild, abuse see below - Substance abuse cocaine and cannabis per counseling center notes, seeing counseling center PAST SURGICAL HISTORY Procedure Laterality Date - REPAIR UMBILICAL [place],5+Y/O,REDUC 3-7-13 FAMILY HISTORY Problem Relation Age of Onset - Hypertension Father - Arthritis Father - Diabetes Father - obesity [OTHER] Father - Hypertension Paternal Grandmother - Heart Paternal Grandmother - Diabetes Paternal Grandmother - renal failure [OTHER] Paternal Grandmother - Hypertension Paternal Grandfather - Heart Paternal Grandfather - Diabetes Paternal Grandfather SOCIAL HISTORY: Social History Marital status: Spouse name: Years of education: Number of children: Social History Main Topics Smoking status: Never Smoker Smokeless status: Never Used Alcohol use: No Drug use: No Other Topics Concern Caffeine Concern Yes Comment:moderate use 2+ 20z bottles of soda Prior to Admission medications as of 03/05/18 1326 Medication Sig Last Dose Taking hydrOXYzine HCl (ATARAX) 25 mg tablet Yes sertraline (ZOLOFT) 50 mg tablet Yes No medication comments found. ALLERGIES No Known Allergies REVIEW OF SYSTEMS: PAIN ASSESSMENT: General: Denies fever, chills, and unexpected weight change. Neuro: Denies dizziness and headaches. Respiratory: Denies SOB and cough Cardiovascular: Denies CP and palpitations. HTN (no meds) GI: Denies abd pain and N/V/D. : Denies dysuria and frequency. See HPI Endocrine: No history of Diabetes. Hematology: Denies history of bleeding or clotting disorder. Musculoskeletal: Denies joint pain and swelling. Skin: Denies open sores and rashes. Diagnostic tests reviewed for today's visit: Lab Value Units Date High Low HB 14.5 g/dL 02/16/2018 17.0 13.0 HCT 47.0 % 02/16/2018 51.0 39.0 WBC 6.70 k/uL 02/16/2018 11.00 3.70 PLT 213 k/uL 02/16/2018 400 150 NA 140 mmol/L 02/16/2018 144 136 K 4.8 mmol/L 02/16/2018 5.1 3.7 GLUC 74 mg/dL 02/16/2018 99 74 BUN 13 mg/dL 02/16/2018 24 9 CREAT 0.79 mg/dL 02/16/2018 1.22 0.73 PTSEC No results within date range. INR No results within date range. APTT No results within date range. ALT No results within date range. AST No results within date range. TBILI No results within date range. TSH No results within date range. Lab Value Units Date High Low HCGQT No results within date range. UHCG No results within date range. HCG, BODY* No results within date range. Lab Value Units Date High Low ABORHD No results within date range. ABSCREEN No results within date range. No results found for: HBA1C Objective PHYSICAL EXAM: VITALS: BP 149/90 Pulse 66 Temp 97.2 Resp 18 Ht 5' 8 (1.73m) Wt 380 lb (172.4kg) SpO2 97% BMI 57.79 kg/(m2). General: NAD. Cooperative. Skin: Skin is warm, no rashes, and no open sores. HEENT: Normocephalic. Cardiovascular: Normal S1 AND S2. RRR Lungs: CTA. No respiratory distress. Abdomen: Soft. Extremities: No edema. Neurological: Alert and oriented x 3 Pulses: radial pulses +2 : defer to surgeon PLAN HTN - Takes no medication Morbid Obesity METS: Climb a flight of stairs or walk up a hill (5.50 METs) Patient denies any chest pain or undue shortness of breath with the above physical activity. ANESTHESIA FINDINGS: Intubation History: No history of difficult intubation Significant Anesthesia Considerations: None DX:Right renal mass Planned Procedure: ROBOTIC LAPAROSCOPIC NEPHRECTOMY PARTIAL [87637] right The Following Tests/Procedures Have Been Initiated: EKG Xray CBC TANDS BMP Urine culture CONSULTS: none Planned Anesthetic: General Instructions Given to Patient: Patient given verbal and written preop instructions and voices comprehension and compliance. SIGNATURE: Cathy Ordoñez APRN.CNP PATIENT NAME: Jorge Roque DATE: March 05, 2018 TIME: 1:26 PM PAGER/CONTACT #: Observed: 03/05/2018 Status: F Source: [facility] CULT URINE 1:00 PM HEALTH SYSTEM REPOSITORY Test performed at [facility] Mixed skin roopa. No further identification or susceptibility testing will be performed. Please submit a new specimen. Plates will be held for 5 days. Performed By: #### C_URI #### [place] [id number] CNPN Observed: 02/27/2018 Status: COMPLETED Source: [place] 12:00 AM CLINIC OTHER CAMPUS REPOSITORY Telephone (AKURGR) MYAJORGE Whittaker ([id number]) 1975 M Date Time Provider Department 02/27/18 YUSUF FAJARDO During your visit today, we recorded the following information about you: Lyndsay Crisostomo [facility] 02/27/2018 12:03 PM Signed ----- Message from Yusuf Fajardo DO sent at 02/27/2018 11:03 AM EDT ----- Please let the patient noted that I reviewed the imaging We will proceed to partial nephrectomy surgery on the as scheduled Lyndsay Crisostomo [facility] 02/27/2018 12:05 PM Signed Called home phone number and it states number has been changed or disconnected. Called moblie number and it states ANDquot;not accepting incoming calls at this timeANDquot;. Please try again later. Lyndsay Crisostomo [facility] Cortney Paulette [facility] 03/04/2018 8:08 AM Signed Home line not in service. Cell phone not excepting calls. Emergency contact Mother Kylee phone # not in service. Will keep trying pt. Cortney Paulette [facility]' Lyndsay Crisostomo [facility] 03/06/2018 9:04 AM Signed Tried all phone numbers on file and emergency contact... All numbers are coming back not in service or not accepting incoming calls at this time. Keep trying. Lyndsay [facility] Ximena Murillo [facility] 03/10/2018 8:54 AM Signed Pt had surgery on 03/09/18 Closing call Ximena Chidi [facility] Allergies As of Date: 02/27/2018 (No Known Allergies) Date Reviewed: 02/20/2018 Reviewed by: Carrie Molina Ct - Fully Assessed Reason for Visit: Results [95] Prescriptions as of 02/27/2018 Sig: HYDROXYZINE HCL 25 MG TABLET X CYCLOBENZAPRINE 10 MG TABLET X HYDROCODONE 5 MG-ACETAMINOPHE* SERTRALINE 50 MG TABLET X VENTOLIN HFA 90 MCG/ACTUATION* X AZITHROMYCIN 250 MG TABLET X DICLOFENAC 3 % TOPICAL GEL X HYDROXYZINE PAMOATE 50 MG CAP* X MELOXICAM 15 MG TABLET X METHYLPREDNISOLONE 4 MG TABLE* X PREDNISONE 10 MG TABLET Problem List As Of Date 02/27/2018 Noted Resolved Hypertension [I10] INVALID FOR* Left knee pain [M25.562] INVALID FOR* Patellar tendinitis [M76.50] INVALID FOR* Morbid obesity [E66.01] INVALID FOR* Right renal mass [N28.89] INVALID FOR* Encounter Status:Closed by LYNDSAY CRISOSTOMO CMA on 03/09/18 PROGRESS Observed: 02/20/2018 Status: COMPLETED Source: [place] 2:34 PM [facility] REPOSITORY O ID: [id number] Author: Carrie Molina Ct Service: (none) Author Type: (none) Type: Progress Notes Filed: 02/20/2018 2:35 PM Note Text: Radiology Service Progress Note PATIENT NAME: Jorge Roque DATE OF SERVICE: February 20, 2018 TIME: 2:34 PM PATIENT IDENTITY VERIFICATION COMPLETED USING TWO (2) METHODS: Patient confirmed name verbally and Date of . PATIENT GENDER DATA: Male PATIENT RELEVANT IMPLANT DATA REVIEWED: Not Applicable CONTRAST INDUCED NEPHROPATHY RISK FACTORS: Not applicable CREATININE: Creatinine Date Value Ref Range Status 02/16/2018 0.79 0.73 - 1.22 mg/dL Final eGFR-All Other Races Date Value Ref Range Status 02/16/2018 >60 . Final Comment: eGFR (Estimated GFR) Units of measure: mL/min/1.73 meters squared eGFR is derived from the reexpressed MDRD Study equation using the following parameters: serum creatinine, age, gender and race. The creatinine assay has been calibrated to be traceable to IDMS. An eGFR <60 mL/min/1.73m2 for >3 months is consistent with chronic kidney disease. Refer to KDOQI guidelines for clinical interpretation. In patients with unstable renal function, e.g. those with acute kidney injury, the eGFR may not accurately reflect actual GFR. eGFR- Date Value Ref Range Status 02/16/2018 >60 Final P.O.C.T. RESULTS: POC done: Yes, See Lab Tab February 20, 2018 RADIOLOGIST NOTIFIED?: No ALLERGIES: Reviewed and unchanged CONTRAST ALLERGY: NO. PERIPHERAL IV ACCESS: Ambulatory: IV type: A peripheral IV was started in the Left antecubital site with a Angio cath: 18 gauge., Site assessment: Clean,Dry and Intact, Site disposition Discontinued RADIOLOGY DEPARTMENT: CT; Exam(s) Completed: Kidney SIGNED BY: Carrie Molina Ct February 20, 2018 2:[address] KIDNEY WO/W Observed: 02/20/2018 Status: F Source: [place] IVCON 12:21 PM [facility] REPOSITORY * * *Final Report* * * DATE OF EXAM: Feb 20 2018 12:21PM [facility] [id number] - CT KIDNEY WO/W IVCON / PROCEDURE REASON: Other specified disorders of kidney and ureter * * * * Physician Interpretation * * * * EXAMINATION: CT ABDOMEN (KIDNEY) WITHOUT AND WITH IV CONTRAST CLINICAL HISTORY: Renal mass characterization. TECHNIQUE: Spiral imaging in three phases through the kidneys and including the entire abdomen was performed utilizing IV contrast only. No oral contrast was given. Arterial phase MIP, and nephrographic phase oblique coronal and sagittal reformations were created from thin-slice images under physician supervision on the imaging modality workstation. MQ: CTKA_3 Contrast: IV: 120 ml of Omnipaque 350 Oral Contrast: None CT Radiation dose: Integrated dose-length product (DLP) for this visit = 3231 mGy*cm. CT Dose Reduction Employed: Automated exposure control(AEC) and iterative recon COMPARISON: None. RESULT: Kidneys, adrenals and ureters: Right kidney: 4.2 x 3.9 cm solid enhancing mass in the mid RIGHT kidney, abuts the renal sinus. No other mass. No calculus or hydronephrosis. Right renal vasculature Arterial anatomy: single. No early branch (< 1cm). First branch seen at 2.3 cm from the origin from the aorta. Venous anatomy: single. Right ureter: Single ureter. No hydronephrosis. Right adrenal: Normal, no nodules or thickening Left kidney: Normal, without mass or calculus. Left renal vasculature Arterial anatomy: 2 arteries. Venous anatomy: conventional, anterior to the aorta. Left ureter: Single ureter. No hydronephrosis. Left adrenal: Normal, no nodules or thickening Retroperitoneal lymphadenopathy and IVC involvement: No retroperitoneal lymphadenopathy. No IVC tumor thrombus. Abdomen and pelvis: Liver: No mass. Biliary: No bile duct dilation. Gallbladder is unremarkable. Spleen: No mass. No splenomegaly. Pancreas: No mass or duct dilation. GI tract: No dilation or wall thickening. Lymph nodes (other): No abdominal lymphadenopathy. Mesentery/Peritoneum: No ascites or mass. Retroperitoneum: No mass. Vasculature: The celiac axis and SMA are patent. The portal vein and branches, splenic vein, SMV, and hepatic veins are patent. Normal caliber aorta. Bones/Soft Tissues: Degenerative changes in the spine. No neoplastic bone disease. Lower thorax: Unremarkable. IMPRESSION: 4.2 CM SOLID ENHANCING MID RIGHT RENAL NEOPLASM, ABUTS THE RENAL SINUS. SINGLE RIGHT RENAL ARTERY AND VEIN NO REGIONAL LYMPHADENOPATHY, VASCULAR INVASION, OR DISTANT METASTASES Enrobing Machine Feeder: ARNIE Transcribe Date/Time: Feb 22 2018 2:05P Dictated by : ABDIRAHMAN RIVERA MD This examination was interpreted and the report reviewed and electronically signed by: ABDIRAHMAN RIVERA MD on Feb 22 2018 2:12PM EST [id number] Observed: 02/17/2018 Status: COMPLETED Source: [place] 12:00 AM [facility] REPOSITORY Letter Text Guidelines for low cholesterol, low triglyceride diets FOODS TO USE MEATS/FISH - Choose lean meats (chicken, turkey, veal, and nonfatty cuts of beef with excess fat trimmed; one serving = 3 oz. of cooked meat). Also, fresh or frozen fish, canned fish packed in water, and shellfish (lobster, crab, shrimp, oysters). Limit use to no more than one serving of one of these per week. Shellfish are high in cholesterol but low in saturated fat and should be used sparingly. Meats and fish should be broiled (thakkar or oven) or baked on a rack. EGGS - Egg substitutes and egg whites (use freely). Egg yolks (limit two per week). FRUITS - Eat three servings of fresh fruit per day (1 serving = 1/2 cup). Be sure to have at least one citrus fruit daily. Frozen or canned fruit with no sugar or syrup added may be used. VEGETABLES - Most vegetables are not limited (see Foods to Avoid). One dark green (string beans, escarole) or one deep yellow (squash) vegetable is recommended daily. Cauliflower, broccoli, and celery, as well as potato skins, are recommended for their fiber content (fiber is associated with cholesterol reduction). It is preferable to steam vegetables, but they may be boiled, strained, or braised with polyunsaturated vegetable oil (see below). BEANS - Dried peas or beans (1 serving = 1/2 cup) may be used as a bread substitute. NUTS - Almonds, walnuts, and peanuts may be used sparingly (1 serving = 1 tablespoon). Use pumpkin, sesame, or sunflower seeds. BREADS/GRAINS - One roll or one slice of whole grain or enriched bread may be used, or three soda crackers or four pieces of kendall toast as a substitute. Spaghetti, rice or noodles (1/2 cup) or 1/2 large ear of corn may be used as a bread substitute. In preparing these foods, do not use butter or shortening; use soft margarine. Also use egg and sugar substitutes. Choose high fiber grains, such as oats and whole wheat. CEREALS - Use 1/2 cup of hot cereal or 1/4 cup of cold cereal per day. Add a sugar substitute if desired, with 99% fat-free or skim milk. MILK PRODUCTS - Always use 99% fat-free or skim milk, dairy products such as low-fat cheeses (el's, uncreamed diet cottage), low-fat yogurt, and powdered skim milk. FATS/OILS - Use soft (not stick) margarine, vegetable oils that are high in polyunsaturated fats (such as safflower, sunflower, soybean, corn, and cottonseed). Always refrigerate meat drippings to harden the fat and remove it before preparing gravies. DESSERTS/SNACKS - Limit to two servings per day; substitute each serving for a bread/cereal serving; ice milk or water sherbet (1/4 cup); unflavored gelatin or gelatin flavored with sugar substitute (1/2 cup); pudding prepared with skim milk (1/2 cup); egg white souffles; unbuttered popcorn (1 1/2 cups). Substitute carob for chocolate. BEVERAGES - Fresh fruit juices (limit to 4 oz. per day); black coffee; plain or herbal teas; soft drinks with sugar substitutes; club soda, preferably salt-free; cocoa made with skim milk or nonfat dried milk and water (sugar substitute added, if desired); clear broth. Alcohol - limit to two servings per day (see Foods to Avoid). MISCELLANEOUS - You may use the following freely: vinegar; spices; herbs; nonfat bouillon; mustard; Worcestershire sauce; soy sauce; flavoring essence. FOODS TO AVOID MEATS/FISH - Marbled beef, pork, knapp, sausage and other pork products; fatty fowl (duck, goose); skin and fat of turkey and chicken; processed meats; luncheon meats (salami, bologna); frankfurters and fast food hambergers (they are loaded with fat); organ meats (kidneys, liver); canned fish packed in oil. EGGS - Limit egg yolks to two per week. FRUITS - Coconuts (rich in saturated fat) VEGETABLES - Avoid avocados. Starchy vegetables (potatoes, corn mcnally beans, dried peas, beans) may be used only if they are substitutes for a serving of bread or cereal. (Baked potato skin, however, is desirable for its fiber content). BEANS - Commercial baked beans with sugar and/or pork added. NUTS - Avoid nuts. Limit peanuts and walnuts to one tablespoonful per day. BREADS/GRAINS - Any baked goods with shortening and/or sugar. Commercial mixes with dried eggs and whole milk. Avoid sweet rolls, doughnuts, breakfast pastries (Arabic), and sweetened packaged cereals (the added sugar converts readily to triglycerides). MILK PRODUCTS - Whole milk and whole-milk packaged goods; cream; ice cream; whole-milk puddings, yogurt, or cheeses; nondairy cream substitutes. FATS/OILS - Butter, lard, animal fats, knapp drippings, gravies, cream sauces, as well as palm and coconut oils. All these are high in saturated fats. Examine labels on cholesterol free products for hydrogenated fats. (These are oils that have been hardened into solids and in the process have become saturated.) DESSERTS/SNACKS - Fried snack foods like potato chips; chocolate; candies in general; jams, jellies, syrups; whole-milk puddings; ice cream and milk sherberts; hydrogenatd peanut butter. BEVERAGES - Sugared fruit juices and soft drinks; cocoa made with whole milk and/or sugar. When using alcohol (1 oz. liquor, 5 oz. beer, or 2 1/2 oz. dry table wine per serving), one serving must be substituted for one bread or cereal serving (limit two servings of alcohol per day). SPECIAL NOTES 1. Remember that even nonlimited foods should be used in moderation. 2. While on a cholesterol-lowering diet, be sure to avoid animal fats and marbled meats. 3. While on a triglyceride-lowering diet, be sure to avoid sweets and to control the amount of carbohydrates you eat (starchy foods such as flower, bread, or potatoes). 4. Buy a good low-fat cookbook, such as the one published by the [place] [employer]. 5. Consult your physician if you have any questions. CNCO Observed: 02/17/2018 Status: COMPLETED Source: [place] 12:00 AM [facility] [place] REPOSITORY Letter Text Jameson Herrera MD [facility] Jorge Roque [address] [facility] [address] Clinic #: [id number] 02/17/2018 Dear Mr. Roque, I have received the results of your recent tests. The results of your lab tests were either normal or within the acceptable range. LDL is mildly up cholesterol lowering diet attached. We can discuss this at your next visit. Please do not hesitate to contact me with any questions. Sincerely, Jameson Herrera MD [facility] Department electronically signed to expedite mailing CBC AND DIFFERENTIAL Collected: 02/16/2018 Status: F Source: [place] 12:17 PM [facility] [place] REPOSITORY TYPE CODE TESTS RESULT OUT OF REFERENCE UNITS RANGE LAB WBC 3.70-11.00 k/uL WBC 6.70 LAB RBC 4.20-6.00 m/uL RBC 5.23 LAB HGB 13.0-17.0 g/dL Hemoglobin 14.5 LAB HCT 39.0-51.0 % Hematocrit 47.0 LAB MCV 80.0-100.0 fL MCV 89.9 LAB MCH 26.0-34.0 pG MCH 27.7 LAB MCHC 30.5-36.0 g/dL MCHC 30.9 LAB RDWCV 11.5-15.0 % RDW-CV 14.4 LAB PLTCT 150-400 k/uL Platelet Count 213 LAB MPV 9.0-12.7 fL MPV 11.4 LAB ANEUT % Neut% 63.4 LAB AANEUT 1.45-7.50 k/uL Abs Neut 4.24 LAB ALYMP % Lymph% 27.2 LAB AALYMP 1.00-4.00 k/uL Abs Lymph 1.82 LAB AMONO % [place]% 7.5 LAB AAMONO <0.87 k/uL Abs [place] 0.50 LAB AEOS % Eosin% 1.5 LAB AAEOS <0.46 k/uL Abs Eosin 0.10 LAB ABASO % Baso% 0.4 LAB AABASO <0.11 k/uL Abs Baso 0.03 LAB AUNRBC 0 /100 WBC NRBCs 0.0 LAB ABNRBC <0.01 k/uL Absolute nRBC <0.01 LAB DTYP DTYPE Auto Diff Performed By: #### CBCDIF, BMP, LIPNF #### [facility] [address] [place] [address] BASIC METABOLIC PANL Collected: 02/16/2018 Status: F Source: [place] 12:17 PM [facility] REPOSITORY TYPE CODE TESTS RESULT OUT OF REFERENCE UNITS RANGE LAB GLU 74-99 mg/dL Glucose 74 Result Comment: The [place] Diabetes Association (ADA) provides guidance for cutoff values for fasting glucose and random glucose. The ADA defines fasting as no caloric intake for at least 8 hours. Fas ting plasma glucose results between 100 to 125 mg/dL indicate increased risk for diabetes (prediabetes). Fasting plasma glucose results greater than or equal to 126 mg/dL meet the criteria for diagnosis of diabetes. In the absence of unequivocal hyperglycemia, results should be confirmed by repeat testing. In a patient with classic symptoms of hyperglycemia or hyperglycemic crisis, random plasma glucose results greater than or equal to 200 mg/dL meet the criteria for diagnosis of diabetes. Reference: Standards of Medical Care in Diabetes 2016, [place] [employer] Association. Diabetes Care. 2016.39(Suppl 1). LAB BUN 9-24 mg/dL BUN 13 LAB CRET 0.73-1.22 mg/dL Creatinine 0.79 LAB NA 136-144 mmol/L Sodium 140 LAB K 3.7-5.1 mmol/L Potassium 4.8 LAB CL 97-105 mmol/L Chloride 101 LAB CO2 22-30 mmol/L CO2 27 LAB AGAP 9-18 mmol/L Anion Gap 12 LAB CA 8.5-10.2 mg/dL Calcium, Total 8.8 LAB GFRAA eGFR- Amer. >60 LAB GFRNAA . eGFR-All Other Races >60 Result Comment: eGFR (Estimated GFR) Units of measure: mL/min/1.73 meters squared eGFR is derived from the reexpressed MDRD Study equation using the following parameters: serum creatinine, age, gender and race. The creatinine assay has been calibrated to be traceable to IDMS. An eGFR <60 mL/min/1.73m2 for >3 months is consistent with chronic kidney disease. Refer to KDOQI guidelines for clinical interpretation. In patients with unstable renal function, e.g. those with acute kidney injury, the eGFR may not accurately reflect actual GFR. Performed By: #### CBCDIF, BMP, LIPNF #### [facility] [address] [place] [address] LIPID PANEL, NONFAST Collected: 02/16/2018 Status: F Source: [place] 12:17 PM [facility] REPOSITORY TYPE CODE TESTS RESULT OUT OF REFERENCE UNITS RANGE LAB CHOLNF <200 mg/dL Total Cholesterol NF 178 Result Comment: <200 mg/dL, Desirable 200-239 mg/dL, Borderline high >239 mg/dL, High LAB TRIGNF <150 mg/dL Triglycerides, NF 111 Result Comment: <150 mg/dL, Normal 150-199 mg/dL, Borderline high 200-499 mg/dL, High >499 mg/dL, Very high LAB HDLNF >39 mg/dL HDL Cholesterol, NF 47 Result Comment: 40-59 mg/dL, Acceptable >59 mg/dL, High: Negative risk factor for coronary heart disease <40 mg/dL, Low: Positive risk factor for coronary heart disease LAB LDLNF <100 mg/dL LDL Cholesterol, High NF 109 Result Comment: <100 mg/dL, Optimal 100-129 mg/dL, Near optimal/above optimal 130-159 mg/dL, Borderline high 160-189 mg/dL, High >189 mg/dL, Very high Secondary prevention optimal LDL Cholesterol levels are recommended to be < 70 mg/dL LAB NOHDLN <130 mg/dL High Non HDL Chol, 131 NF Result Comment: <130 mg/dL, Optimal 130-159 mg/dL, Near optimal/above optimal 160-189 mg/dL, Borderline high 190-219 mg/dL, High >219 mg/dL, Very high Secondary prevention optimal non HDL Cholesterol levels are recommended to be < 100 mg/dL LAB VLDLNF <30 mg/dL VLDL Cholesterol, NF 22 LAB TCHDLN <5.10 mg/dL T Chol/HDL Ratio NF 3.79 LAB LDLHDN <2.54 mg/dL LDL/HDL Ratio, NF 2.32 Result Comment: Reference: 1. National Cholesterol Education Program ATP III Guideline At-A-Glance Quick Desk Reference: National Heart, Lung, and Blood [place]. National Institutes of Health. 2001: NIH Publication No. 01-3305. 2. An International Atherosclerosis Society position paper: global recommendations for the management of dyslipidemia: executive summary, Atherosclerosis. 2014: 232(2):410-413. Performed By: #### CBCDIF, BMP, LIPNF #### [facility] [address] [address] CNPN Observed: 02/10/2018 Status: COMPLETED Source: [place] 12:00 AM CLINIC OTHER CAMPUS REPOSITORY Telephone (AKURFL) JORGE ROQUE ([id number]) 1975 M Date Time Provider Department 02/10/18 YUSUF FAJARDO During your visit today, we recorded the following information about you: Sparkle Ordaz Coord 02/10/2018 2:26 PM Signed Pt called and needs a letter for Child Support that he is out of work due to illness, having surgery etc. Please advise, thanks Sparkle Fajardo DO 02/11/2018 9:21 AM Signed We can provide a letter stating that he will be having surgery and will need 4 weeks off after that Allergies As of Date: 02/10/2018 (No Known Allergies) Date Reviewed: 01/28/2018 Reviewed by: Yusuf Fajardo DO - Fully Assessed Reason for Visit: Letter [264] Prescriptions as of 02/10/2018 Sig: VENTOLIN HFA 90 MCG/ACTUATION* AZITHROMYCIN 250 MG TABLET DICLOFENAC 3 % TOPICAL GEL HYDROXYZINE PAMOATE 50 MG CAP* MELOXICAM 15 MG TABLET METHYLPREDNISOLONE 4 MG TABLE* PREDNISONE 10 MG TABLET SERTRALINE 50 MG TABLET Problem List As Of Date 02/10/2018 Noted Resolved Hypertension [I10] INVALID FOR* Left knee pain [M25.562] INVALID FOR* Patellar tendinitis [M76.50] INVALID FOR* Morbid obesity [E66.01] INVALID FOR* Right renal mass [N28.89] INVALID FOR* Encounter Status:Closed by SPARKLE COHEN on 02/10/18 EMERGENCY DEPARTMENT Observed: 02/08/2018 Status: F Source: [place] SUMMARY 11:52 PM [facility] REPOSITORY [facility] Medical Records Department [address] [place] [address] Emergency Department Summary 02/08/18 1718 MR#: [id number] Acct: [id number] Name: JORGE ROQUE Rep #: [id number] : 1975 42 From: Meghan Martínez MD PCP: Jameson Herrera MD Status: DEP ER - ER Visit Summary Date of Service: 02/08/18 Chief Complaint: Back pain History of Present Illness: The patient is a 42 M who presents secondary to left-sided back pain. Patient states just prior to arrival he was helping a family member move a dresser. The family member on the other end dropped the dresser and the patient's back was jerked in a twisting motion. He had instant pain to the left lumbar region. He has pain radiating to the proximal thigh only. No problems with bowel or bladder control. He did take ibuprofen prior to arrival. Physical Examination: Vital signs are unremarkable. Patient sitting on the side of the bed. He appears uncomfortable but no acute distress. Heart is regular rate and rhythm. Lung sounds are clear. Abdomen is soft, obese, nontender. Back examination reveals no midline thoracic or lumbar tenderness. He has significant tenderness in the lower thoracic and upper lumbar paraspinals on the left. No tenderness noted to the right-sided paraspinals. No skin changes are noted. Neuro exam reveals normal strength and sensation in the lower extremities. He has strong distal pulses. Test Results: [] Emergency Department Course and Treatment: I did do an oars report. Patient has not had any prescriptions in the last year. He is given [place] and Flexeril here and be given prescriptions for the same. Treatment Plan: [] Disposition: Discharge Impression: Lumbar paraspinal strain This note was generated with Elements[employer] dictation software. It may contain incorrect words, spelling, and punctuation that were not noted in review of the chart prior to signing ED Disposition - Plan for ED Patient: Chief Complaint: Back Referrals: Jameson Herrera MD [Primary Care Provider] - What to do if you have Problems For any increased pain, shortness of breath, bleeding, nausea or vomiting, chest pain, or any unexpected problems, contact your Primary Care Provider. Call [facility] ([phone]) or report to the closest Emergency Room. Call 911 if necessary. 02/08/18 0141 <Electronically signed by Meghan Martínez MD> Date Meghan Martínez MD Cosigner Signature (If Indicated): Date CC: Jameson Herrera MD DISCHARGE INSTRUCTION Observed: 02/08/2018 Status: F Source: [place] 5:22 PM [facility] REPOSITORY [facility] Medical Records Department [address] [place] [address] Discharge Instruction 02/08/18 1720 MR#: [id number] Acct: [id number] Name: JORGE ROQUE Rep #: [id number] : 1975 42 From: Meghan Martínez MD PCP: Jameson Herrera MD Status: REG ER ED Disposition - Plan for ED Patient: Disposition: Home or Assisted Living Chief Complaint: Back Instructions: ED Sprain Strain Lumbar Prescriptions: Hydrocodone Bitart/Apap 5-325 [[place] 5/325] 1 - 2 tablet PO Q6H PRN PRN 3 Days #12 tablet PRN Reason: Pain Cyclobenzaprine [Flexeril] 10 mg PO TID PRN #20 tab PRN Reason: Muscle Spasm Referrals: Jameson Herrera MD [Primary Care Provider] - 1 Week if not improving What to do if you have Problems For any increased pain, shortness of breath, bleeding, nausea or vomiting, chest pain, or any unexpected problems, contact your Primary Care Provider. Call [facility] ([phone]) or report to the closest Emergency Room. Call 911 if necessary. 02/08/18 1722 <Electronically signed by Meghan Martínez MD> Date Meghan Martínez MD Cosigner Signature (If Indicated): Date CC: Jameson Herrera MD NM RENAL FLOW/FXN W Observed: 02/06/2018 Status: F Source: [place] PHARM 11:30 AM CLINIC OTHER CAMPUS REPOSITORY * * *Final Report* * * DATE OF EXAM: Feb 06 2018 11:30AM JUAN 0035 - NM RENAL FLOW/FXN W PHARM / PROCEDURE REASON: N28.89-Other specified disorders of kidney and ureter * * * * Physician Interpretation * * * * RENAL SCAN: HISTORY: Hydronephrosis. TECHNIQUE: 10.6 mCi Tc 99m MAG-3 IV. 40 mg Lasix was given IV. The patient's medications and allergies were reviewed in electronic medical record and reconciled to the proposed procedure/treatment. FINDINGS: There is inadequate evaluation of flow due to poor bolus. Left kidney: Normal size. The initial uptake is normal with normal parenchymal tracer clearance noted. Drainage of radiotracer is normal before and after administration of Lasix. . Right kidney: Normal size. The initial uptake is normal with normal parenchymal tracer clearance noted. Drainage of radiotracer is normal before and after administration of Lasix. . By computer analysis, the contribution to total renal function is 45% from the left kidney, and 55% from the right kidney. IMPRESSION: NORMAL FUNCTION BILATERAL KIDNEY. NO EVIDENCE FOR URINARY TRACT OBSTRUCTION. Enrobing Machine Feeder: ARNIE Transcribe Date/Time: Feb 06 2018 1:42P Dictated by : JEREMY HUERTA MD This examination was interpreted and the report reviewed and electronically signed by: JEREMY HUERTA MD on Feb 06 2018 1:45PM EST [id number] NURSING PROG Observed: 02/06/2018 Status: COMPLETED Source: [place] 11:11 AM [facility] REPOSITORY HNO ID: [id number] Author: Ebony (Rn) ANA LAURA Blount Service: Radiology Author Type: Registered Nurse Type: Nursing Progress Note Filed: 02/06/2018 11:11 AM Note Text: Pt given lasix injection IV for procedure per protocol. CNPN Observed: 02/04/2018 Status: COMPLETED Source: [place] 12:00 AM [facility] REPOSITORY Telephone (AKURFL) JORGE ROQUE ([id number]) 1975 M Date Time Provider Department 02/04/18 YUSUF FAJARDO During your visit today, we recorded the following information about you: Sparkle Ordaz Coord 02/04/2018 1:33 PM Signed Pt called states he went to [facility] today for his CT Scan. When he checked in he was told that the Financial Department tried to call him 20 minutes prior to let him know his test are not approved through the insurance yet and unable to do today. Patient drove from [place], I'm not sure why he's being called 20-30 minutes prior to his scheduled time to tell him it will be R/S. Pt was told to call our office to see if the testing was even needed since you were doing surgery. I explained to the pt that - Yes you wanted the images PRE OP - Prior to surgery. Pt states they are trying to do this on Friday but was upset that he was being told on the arrival of his scheduled time. Thanks - Sparkle Allergies As of Date: 02/04/2018 (No Known Allergies) Date Reviewed: 01/28/2018 Reviewed by: Yusuf Fajardo DO - Fully Assessed Reason for Visit: Testing [Other] Prescriptions as of 02/04/2018 Sig: VENTOLIN HFA 90 MCG/ACTUATION* AZITHROMYCIN 250 MG TABLET DICLOFENAC 3 % TOPICAL GEL HYDROXYZINE PAMOATE 50 MG CAP* MELOXICAM 15 MG TABLET METHYLPREDNISOLONE 4 MG TABLE* PREDNISONE 10 MG TABLET SERTRALINE 50 MG TABLET Problem List As Of Date 02/04/2018 Noted Resolved Hypertension [I10] INVALID FOR* Left knee pain [M25.562] INVALID FOR* Patellar tendinitis [M76.50] INVALID FOR* Morbid obesity [E66.01] INVALID FOR* Right renal mass [N28.89] INVALID FOR* Encounter Status:Closed by SPARKLE COHEN on 02/04/18 PROGRESS Observed: 02/02/2018 Status: COMPLETED Source: [place] 12:44 PM [facility] [place] REPOSITORY HNO ID: [id number] Author: Sparkle Martin Service: (none) Author Type: (none) Type: Progress Notes Filed: 02/02/2018 12:47 PM Note Text: Pt is scheduled 03/09/2018 @ 12 PM, PAT 03/02/2018 @ 9:20 AM - Pt is aware and understands surgery information. Booklet Mailed - Sparkle PROGRESS Observed: 01/28/2018 Status: COMPLETED Source: [place] 5:32 PM [facility] OTHER CAMPUS REPOSITORY HNO ID: [id number] Author: Yusuf Fajardo DO Service: (none) Author Type: Physician Type: Progress Notes Filed: 01/28/2018 5:41 PM Note Text: [facility] [place] PATIENT INFO: Jorge Remedios Roque 42 year old PCP: Jameson Herrera MD Referred by: Jameson Herrera MD Consult: A consultation requested by Jameson Herrera MD for an opinion regarding Renal Mass My final recommendations communicated back to the requesting physician by way of shared Medical record. CHIEF COMPLAINT: Renal Mass HPI: This is a 42 year old male, who has a Solid Right Renal Mass which started in 2018, and involves the Kidney Patient states this was found incidentally His CT scan is uploaded into [employer] He saw Delmarnicolette Menard in [place] and is here for surgical evaluation VOIDING SYMPTOMS: All GUROS reviewed, all were negative SEXUAL SYMPTOMS: None ALLERGY: ALLERGIES No Known Allergies MEDICATIONS: Current Outpatient Prescriptions: Diclofenac Sodium 3 % gel Disp: Rfl: VENTOLIN HFA 90 mcg/actuation inhaler Disp: Rfl: azithromycin (ZITHROMAX) 250 mg tablet Disp: Rfl: hydrOXYzine pamoate (VISTARIL) 50 mg capsule Disp: Rfl: meloxicam (MOBIC) 15 mg tablet Disp: Rfl: methylPREDNISolone (MEDROL DOSE-PACK) 4 mg Dose-Pack Disp: Rfl: predniSONE (DELTASONE) 10 mg tablet Disp: Rfl: sertraline (ZOLOFT) 50 mg tablet Disp: Rfl: iv contrast (radiology procedure) CT kidney wow Inject, intravenously, once for 1 dose.No IV access, insert saline lock prior to the beginning of sedation, infusion, injection of imaging exam. Discontinue saline lock post exam. If Pt. has a central line or IVAD, may access for administration according to line specific nursing protocol. Once exam is complete flush line and de-access according to line specific nursing protocol in the CT contrast administration guidelines link. Disp: 1 Each Rfl: 0 No current facility-administered medications for this visit. Past Medical History PAST MEDICAL HISTORY Diagnosis Date - Hypertension - Morbid obesity (HCC) - Opioid use disorder, mild, abuse see below - Substance abuse cocaine and cannabis per counseling center notes, seeing counseling center Past Surgical History PAST SURGICAL HISTORY Procedure Laterality Date - REPAIR UMBILICAL IONA,5+Y/O,REDUC 3-7-13 Family History FAMILY HISTORY Problem Relation Age of Onset - Hypertension Father - Arthritis Father - Diabetes Father - obesity [OTHER] Father - Hypertension Paternal Grandmother - Heart Paternal Grandmother - Diabetes Paternal Grandmother - renal failure [OTHER] Paternal Grandmother - Hypertension Paternal Grandfather - Heart Paternal Grandfather - Diabetes Paternal Grandfather REVIEW OF SYSTEMS: General: General: Well developed, well nourished. No acute distress HEENT: Negative for sore throat, difficulty swallowing. Negative for frequent or significant headaches, changes in vision or hearing. Cardiovascular: No history of cardiovascular symtoms or problems. No history of angina, CHF, ME, cardiac surgery of stents. Respiratory: Negative for current cough, dyspnea. No hx of pneumonia in the past six weeks Gastrointestinal: No history of GERD, PUD, abd pain, difficulty swallowing, GI bleed. Renal: Negative for renal failure and No history of dialysis, Recent Renal Mass on CT Musculoskeletal: Negative for joint pain or swelling, back pain or muscle pain. Skin: Negative for lesions, rash and itching. Psychological: No history of psychiatric symptoms or problems. Neurologic: No history of TIA's, stroke, SKIING TEACHER tumor, impaired sensorium, hemiplegia, paraplegia or quadriplegia. No neurological symptoms or problems. Hematology/Oncology: No history of bleeding or clotting disorder. Pt is not taking anti-coagulation or platelet medications. No history of hematological symptoms or problems. Endocrine: No history of endocrinological symtoms or problems No history of DM; has not taken steroids w/in past 30 days. Negative for excessive sweating, thirst or hunger PHYSICAL EXAMINATION: General Appearance/ Constitutional: Well developed, well nourished, and in no apparent distress HEENT: Not examined Neck: Lymph Nodes: Not examined Cardiac: Normal Breast: Not examined Pulmonary: Ascultation: Normal Effort: Normal GI: Soft, Benign and Non-tender Peripheral Vascular: Not examined Extremities: Cyanosis absent, Clubbing absent and Edema absent Skin: Normal Neurologic: Grossly non-focal, Alert and oriented and Affect appropriate ADDITIONAL DATA REVIEWED: Most recent imaging Most recent labs Results for orders placed or performed in visit on 01/27/18 UA DIP B/O Result Value Ref Range Glucose, Urine neg Neg mg/dL Bilirubin, Urine neg Neg Ketones, Urine trace Neg Specific [place], Ur 1.030 1.005 - 1.030 Hemoglobin/Blood,Ur neg Neg pH, Urine 6.0 4.5 - 8.0 Protein, Urine neg Neg mg/dL Urobilinogen, Urine 0.2 Normal (<1.1) EU Nitrites neg Neg Leukocytes neg Neg Color/Appearance yellow/clear comment: Quality Check Yes yes/no RADIOLOGY: YES CT Scan at [facility] Right Renal Mass - 3.7 cm - centrally located and abutting the collecting system Enhancing mass that is solid IMPRESSION / PLAN: 3.7 cm Solid Right Renal Mass At this time we have reviewed the images with the patient He is interested in a robotic partial nephrectomy We have discussed the renal mass in detail He will need a renal scan preop and a detailed kidney CT scan to further see the mass Schedule surgery He is aware that this lesion has a 20% chance of being benign The diagnosis of renal mass was discussed in great detail. We discussed the fact that enhancement within a renal mass suggests malignancy, but that a benign renal tumor cannot be excluded. Overall the risks of malignancy appears to be about 80-90%. We discussed the problems with renal biopsy, the limited indications, and the need to treat based primarily on radiographic findings. The patient appears to understand that there is about a 10-20% chance that this mass may be benign. Regarding treatment, we discussed radical vs. partial nephrectomy. With respect to partial nephrectomy we discussed a potential advantage with preservation of long-term renal function skilled nursing and the equivalent long-term cancer control rates with appropriately selected patients. We discussed the small (~4%) risk of local recurrence and recurrence in the contralateral kidney and the need for long-term radiographic surveillance postoperatively. We discussed the higher complication rate with partial vs. radical nephrectomy related to a higher risk of prolonged urine leak, urinoma, hemorrhage requiring transfusion, infection, and possible need for reoperation. We also discussed the potential need for radical nephrectomy based on intraoperative findings. For radical and partial nephrectomy, we discussed the risks associated with any major surgery, including cardiovascular, pulmonary, anesthetic, and thromboembolic problems as well as wound healing problems. We discussed risk of cancer recurrence and the potential need for additional therapy. We also discussed risk of renal insufficiency and dialysis short and long-term with radical nephrectomy. We also discussed open vs. robotic/laparoscopic surgery and advantages and disadvantages each way. For robotic/laparoscopic surgery, we discussed possibility that conversion to open surgery might be required dependent on intraoperative findings and anatomy. We also discussed renal ablative therapies such as cryotherapy and RFA. We reviewed the data for these modalities and the overall encouraging findings thus far, but also discussed the fact that long-term cancer control issues remain unproven due to the still somewhat novel status of these modalities. As such, the fact that these procedures are still considered experimental was conveyed. All questions were answered. I asked this patient to call if any additional questions or concerns or if the patient wanted to proceed with therapy at [facility]. I spent approximately 45 minutes in this visit, with more than 50% of the time devoted to patient discussion, counseling, review of records and/or coordination of care. Yusuf Fajardo DO EDMUND CNPN Observed: 01/28/2018 Status: COMPLETED Source: [place] 12:00 AM [facility] OTHER CAMPUS REPOSITORY Telephone (AKURFL) JORGE ROQUE ([id number]) 1975 M Date Time Provider Department 01/28/18 YUSUF FAJARDO During your visit today, we recorded the following information about you: Sparkle Ordaz Ashlyn 01/28/2018 3:39 PM Signed Spoke with pt and he is aware of surgery information Pt is scheduled @ [facility] 03/09/18 Sparkle Fajardo DO 01/28/2018 6:01 PM Signed Ok thanks He will need a CT kidney and Renal scan preop Allergies As of Date: 01/28/2018 (No Known Allergies) Date Reviewed: 01/28/2018 Reviewed by: Yusuf Fajardo DO - Fully Assessed Reason for Visit: Surgery [Other] Prescriptions as of 01/28/2018 Sig: VENTOLIN HFA 90 MCG/ACTUATION* AZITHROMYCIN 250 MG TABLET DICLOFENAC 3 % TOPICAL GEL HYDROXYZINE PAMOATE 50 MG CAP* MELOXICAM 15 MG TABLET METHYLPREDNISOLONE 4 MG TABLE* PREDNISONE 10 MG TABLET SERTRALINE 50 MG TABLET IV CONTRAST (RADIOLOGY PROCED* CT kidney wow Inject, intrave* Problem List As Of Date 01/28/2018 Noted Resolved Hypertension [I10] INVALID FOR* Left knee pain [M25.562] INVALID FOR* Patellar tendinitis [M76.50] INVALID FOR* Morbid obesity [E66.01] INVALID FOR* Right renal mass [N28.89] INVALID FOR* Encounter Status:Closed by AMANDA MARTIN SPARKLE on 01/28/18 HOSP Observed: 01/28/2018 Status: COMPLETED Source: [place] 12:00 AM CLINIC OTHER CAMPUS REPOSITORY Patient:Jorge Roque MRN: <[id number]> Height:5' 8(1.727 m) Weight:380 lb (172.367 kg) Outpatient Medications as of 03/09/18: hydrOXYzine HCl (ATARAX) 25 mg tablet sertraline (ZOLOFT) 50 mg tablet Admission/Clinic Administered Medications as of 03/09/18: ceFAZolin 3 g in D5W 100 mL (ANCEF) Problem List: Hypertension [I10] Left knee pain [M25.562] Patellar tendinitis [M76.50] Morbid obesity (HCC) [E66.01] Right renal mass [N28.89] Obesity, Class III, BMI >= 40 E66.01 [E66.01] Allergies: No Known Allergies Date Verified:03/09/18 Lab Values Lab Value Units Date High Low POTA* 4.7 mEq/L 03/05/2018 5.1 3.5 TIMOTHY* 48.4 % 03/05/2018 51.0 40.1 Progress Notes (URODanuta NIXON): Lyndsay Crisostomo [facility] 02/27/2018 12:03 PM Signed ----- Message from Yusuf Fajardo DO sent at 02/27/2018 11:03 AM EDT ----- Please let the patient noted that I reviewed the imaging We will proceed to partial nephrectomy surgery on the as scheduled Lyndsay Crisostomo [facility] 02/27/2018 12:05 PM Signed Called home phone number and it states number has been changed or disconnected. Called moblie number and it states not accepting incoming calls at this time. Please try again later. Lyndsay Crisostomo [facility] Cortney Caldwell [facility] 03/04/2018 8:08 AM Signed Home line not in service. Cell phone not excepting calls. Emergency contact Mother Kylee phone # not in service. Will keep trying pt. Cortney Caldwell [facility]' Lyndsay Crisostomo [facility] 03/06/2018 9:04 AM Signed Tried all phone numbers on file and emergency contact... All numbers are coming back not in service or not accepting incoming calls at this time. Keep trying. Lyndsay Crisostomo [facility] Progress Notes (RADIO CT SCAN [facility]): Carrie Molina Ct 02/20/2018 2:35 PM Signed Radiology Service Progress Note PATIENT NAME: Jorge Roque DATE OF SERVICE: February 20, 2018 TIME: 2:34 PM PATIENT IDENTITY VERIFICATION COMPLETED USING TWO (2) METHODS: Patient confirmed name verbally and Date of . PATIENT GENDER DATA: Male PATIENT RELEVANT IMPLANT DATA REVIEWED: Not Applicable CONTRAST INDUCED NEPHROPATHY RISK FACTORS: Not applicable CREATININE: Creatinine Date Value Ref Range Status 02/16/2018 0.79 0.73 - 1.22 mg/dL Final eGFR-All Other Races Date Value Ref Range Status 02/16/2018 >60 . Final Comment: eGFR (Estimated GFR) Units of measure: mL/min/1.73 meters squared eGFR is derived from the reexpressed MDRD Study equation using the following parameters: serum creatinine, age, gender and race. The creatinine assay has been calibrated to be traceable to IDMS. An eGFR <60 mL/min/1.73m2 for >3 months is consistent with chronic kidney disease. Refer to KDOQI guidelines for clinical interpretation. In patients with unstable renal function, e.g. those with acute kidney injury, the eGFR may not accurately reflect actual GFR. eGFR- Date Value Ref Range Status 02/16/2018 >60 Final P.O.C.T. RESULTS: POC done: Yes, See Lab Tab February 20, 2018 RADIOLOGIST NOTIFIED?: No ALLERGIES: Reviewed and unchanged CONTRAST ALLERGY: NO. PERIPHERAL IV ACCESS: Ambulatory: IV type: A peripheral IV was started in the Left antecubital site with a Angio cath: 18 gauge., Site assessment: Clean,Dry and Intact, Site disposition Discontinued RADIOLOGY DEPARTMENT: CT; Exam(s) Completed: Kidney SIGNED BY: Carrie Garcia February 20, 2018 2:34 PM CNOV Observed: 01/27/2018 Status: COMPLETED Source: [place] 12:45 PM CLINIC OTHER CAMPUS REPOSITORY Office Visit (AKURFL) JORGE ROQUE ([id number]) 1975 M Date Time Provider Department 01/27/18 12:45 PM YUSUF FAJARDO During your visit today, we recorded the following information about you: Blood pressure Weight Height 150/88 172.4 kg 1.727 m Yusuf FajardoDO 01/28/2018 5:41 PM Signed [facility] [place] PATIENT INFO: Jorge Roque 42 year old PCP: Jameson Herrera MD Referred by: Jameson Herrera MD Consult: A consultation requested by Jameson Herrera MD for an opinion regarding Renal Mass My final recommendations communicated back to the requesting physician by way of shared Medical record. CHIEF COMPLAINT: Renal Mass HPI: This is a 42 year old male, who has a Solid Right Renal Mass which started in 2018, and involves the Kidney Patient states this was found incidentally His CT scan is uploaded into [employer] He saw Delmar Menard in [place] and is here for surgical evaluation VOIDING SYMPTOMS: All GUROS reviewed, all were negative SEXUAL SYMPTOMS: None ALLERGY: ALLERGIES No Known Allergies MEDICATIONS: Current Outpatient Prescriptions: Diclofenac Sodium 3 % gel Disp: Rfl: VENTOLIN HFA 90 mcg/actuation inhaler Disp: Rfl: azithromycin (ZITHROMAX) 250 mg tablet Disp: Rfl: hydrOXYzine pamoate (VISTARIL) 50 mg capsule Disp: Rfl: meloxicam (MOBIC) 15 mg tablet Disp: Rfl: methylPREDNISolone (MEDROL DOSE-PACK) 4 mg Dose-Pack Disp: Rfl: predniSONE (DELTASONE) 10 mg tablet Disp: Rfl: sertraline (ZOLOFT) 50 mg tablet Disp: Rfl: iv contrast (radiology procedure) CT kidney wow Inject, intravenously, once for 1 dose.No IV access, insert saline lock prior to the beginning of sedation, infusion, injection of imaging exam. Discontinue saline lock post exam. If Pt. has a central line or IVAD, may access for administration according to line specific nursing protocol. Once exam is complete flush line and de-access according to line specific nursing protocol in the CT contrast administration guidelines link. Disp: 1 Each Rfl: 0 No current facility-administered medications for this visit. Past Medical History PAST MEDICAL HISTORY Diagnosis Date - Hypertension - Morbid obesity (HCC) - Opioid use disorder, mild, abuse see below - Substance abuse cocaine and cannabis per counseling center notes, seeing counseling center Past Surgical History PAST SURGICAL HISTORY Procedure Laterality Date - REPAIR UMBILICAL IONA,5+Y/O,REDUC 3-7-13 Family History FAMILY HISTORY Problem Relation Age of Onset - Hypertension Father - Arthritis Father - Diabetes Father - obesity [OTHER] Father - Hypertension Paternal Grandmother - Heart Paternal Grandmother - Diabetes Paternal Grandmother - renal failure [OTHER] Paternal Grandmother - Hypertension Paternal Grandfather - Heart Paternal Grandfather - Diabetes Paternal Grandfather REVIEW OF SYSTEMS: General: General: Well developed, well nourished. No acute distress HEENT: Negative for sore throat, difficulty swallowing. Negative for frequent or significant headaches, changes in vision or hearing. Cardiovascular: No history of cardiovascular symtoms or problems. No history of angina, CHF, ME, cardiac surgery of stents. Respiratory: Negative for current cough, dyspnea. No hx of pneumonia in the past six weeks Gastrointestinal: No history of GERD, PUD, abd pain, difficulty swallowing, GI bleed. Renal: Negative for renal failure and No history of dialysis, Recent Renal Mass on CT Musculoskeletal: Negative for joint pain or swelling, back pain or muscle pain. Skin: Negative for lesions, rash and itching. Psychological: No history of psychiatric symptoms or problems. Neurologic: No history of TIA's, stroke, SKIING TEACHER tumor, impaired sensorium, hemiplegia, paraplegia or quadriplegia. No neurological symptoms or problems. Hematology/Oncology: No history of bleeding or clotting disorder. Pt is not taking anti-coagulation or platelet medications. No history of hematological symptoms or problems. Endocrine: No history of endocrinological symtoms or problems No history of DM; has not taken steroids w/in past 30 days. Negative for excessive sweating, thirst or hunger PHYSICAL EXAMINATION: General Appearance/ Constitutional: Well developed, well nourished, and in no apparent distress HEENT: Not examined Neck: Lymph Nodes: Not examined Cardiac: Normal Breast: Not examined Pulmonary: Ascultation: Normal Effort: Normal GI: Soft, Benign and Non-tender Peripheral Vascular: Not examined Extremities: Cyanosis absent, Clubbing absent and Edema absent Skin: Normal Neurologic: Grossly non-focal, Alert and oriented and Affect appropriate ADDITIONAL DATA REVIEWED: Most recent imaging Most recent labs Results for orders placed or performed in visit on 01/27/18 UA DIP B/O Result Value Ref Range Glucose, Urine neg Neg mg/dL Bilirubin, Urine neg Neg Ketones, Urine trace Neg Specific [place], Ur 1.030 1.005 - 1.030 Hemoglobin/Blood,Ur neg Neg pH, Urine 6.0 4.5 - 8.0 Protein, Urine neg Neg mg/dL Urobilinogen, Urine 0.2 Normal (ANDlt;1.1) EU Nitrites neg Neg Leukocytes neg Neg Color/Appearance yellow/clear comment: Quality Check Yes yes/no RADIOLOGY: YES CT Scan at [facility] Right Renal Mass - 3.7 cm - centrally located and abutting the collecting system Enhancing mass that is solid IMPRESSION / PLAN: 3.7 cm Solid Right Renal Mass At this time we have reviewed the images with the patient He is interested in a robotic partial nephrectomy We have discussed the renal mass in detail He will need a renal scan preop and a detailed kidney CT scan to further see the mass Schedule surgery He is aware that this lesion has a 20% chance of being benign The diagnosis of renal mass was discussed in great detail. We discussed the fact that enhancement within a renal mass suggests malignancy, but that a benign renal tumor cannot be excluded. Overall the risks of malignancy appears to be about 80-90%. We discussed the problems with renal biopsy, the limited indications, and the need to treat based primarily on radiographic findings. The patient appears to understand that there is about a 10-20% chance that this mass may be benign. Regarding treatment, we discussed radical vs. partial nephrectomy. With respect to partial nephrectomy we discussed a potential advantage with preservation of long-term renal function terminal system operator and the equivalent long-term cancer control rates with appropriately selected patients. We discussed the small (~4%) risk of local recurrence and recurrence in the contralateral kidney and the need for long-term radiographic surveillance postoperatively. We discussed the higher complication rate with partial vs. radical nephrectomy related to a higher risk of prolonged urine leak, urinoma, hemorrhage requiring transfusion, infection, and possible need for reoperation. We also discussed the potential need for radical nephrectomy based on intraoperative findings. For radical and partial nephrectomy, we discussed the risks associated with any major surgery, including cardiovascular, pulmonary, anesthetic, and thromboembolic problems as well as wound healing problems. We discussed risk of cancer recurrence and the potential need for additional therapy. We also discussed risk of renal insufficiency and dialysis short and long-term with radical nephrectomy. We also discussed open vs. robotic/laparoscopic surgery and advantages and disadvantages each way. For robotic/laparoscopic surgery, we discussed possibility that conversion to open surgery might be required dependent on intraoperative findings and anatomy. We also discussed renal ablative therapies such as cryotherapy and RFA. We reviewed the data for these modalities and the overall encouraging findings thus far, but also discussed the fact that long-term cancer control issues remain unproven due to the still somewhat novel status of these modalities. As such, the fact that these procedures are still considered experimental was conveyed. All questions were answered. I asked this patient to call if any additional questions or concerns or if the patient wanted to proceed with therapy at [facility]. I spent approximately 45 minutes in this visit, with more than 50% of the time devoted to patient discussion, counseling, review of records and/or coordination of care. Yusuf Fajardo DO, MBA Referring Provider: JAMESON HERRERA [[id number]] Allergies As of Date: 01/27/2018 (No Known Allergies) Date Reviewed: 01/27/2018 Reviewed by: Lyndsay Crisostomo CMA - Fully Assessed Reason for Visit: New Patient [172] Mass [64] Cmt: R kidney Primary Visit Diagnosis:Right renal mass [N28.89] Order(s):UA DIP B/O [[id number]] Order #: [id number] CT KIDNEY WO/W IVCON [[id number]] Order #: [id number] FUTURE iv contrast (radiology procedure)CT kidney wow Inject, intravenously, once for 1 dose.No IV access, insert saline lock prior to the beginning of sedation, infusion, injection of imaging exam. Discontinue saline lock post exam. If Pt. has a central line or IVAD, may access for administration according to line specific nursing protocol. Once exam is complete flush line and de- access according to line specific nursing protocol in the CT contrast administration guidelines link.Disp: 1 EachRfl: 0 NM RENAL FLOW/FXN W PHARM [[id number]] Order #: [id number] FUTURE Prescriptions as of 01/27/2018 Sig: DICLOFENAC 3 % TOPICAL GEL VENTOLIN HFA 90 MCG/ACTUATION* AZITHROMYCIN 250 MG TABLET HYDROXYZINE PAMOATE 50 MG CAP* MELOXICAM 15 MG TABLET METHYLPREDNISOLONE 4 MG TABLE* PREDNISONE 10 MG TABLET SERTRALINE 50 MG TABLET IV CONTRAST (RADIOLOGY PROCED* CT kidney wow Inject, intrave* Medication notes this encounter VENTOLIN HFA 90 MCG/ACTUATION AEROSOL INHALER >> Lyndsay Crisostomo CMA 01/27/2018 12:48 PM >> LYNDSAY CRISOSTOMO CMA Jan 27, 2018 12:48 PM Not taking AZITHROMYCIN 250 MG TABLET >> Lyndsay Crisostomo CMA 01/27/2018 12:47 PM >> LYNDSAY CRISOSTOMO CMA Jan 27, 2018 12:47 PM No longer taking HYDROXYZINE PAMOATE 50 MG CAPSULE >> Lyndsay Crisostomo CMA 01/27/2018 12:48 PM >> LYNDSAY CRISOSTOMO CMA Jan 27, 2018 12:48 PM Not taking MELOXICAM 15 MG TABLET >> Lyndsay Crisostomo CMA 01/27/2018 12:48 PM >> LYNDSAY CRISOSTOMO CMA Jan 27, 2018 12:48 PM Not taking METHYLPREDNISOLONE 4 MG TABLETS IN A DOSE PACK >> Lyndsay Crisostomo CMA 01/27/2018 12:48 PM >> LYNDSAY CRISOSTOMO CMA Jan 27, 2018 12:48 PM Not taking PREDNISONE 10 MG TABLET >> Lyndsay Crisostomo CMA 01/27/2018 12:48 PM >> LYNDSAY CRISOSTOMO CMA Jan 27, 2018 12:48 PM Not taking SERTRALINE 50 MG TABLET >> Lyndsay Crisostomo CMA 01/27/2018 12:48 PM >> LYNDSAY CRISOSTOMO CMA Jan 27, 2018 12:48 PM Not taking Problem List As Of Date 01/27/2018 Noted Resolved Hypertension [I10] INVALID FOR* Left knee pain [M25.562] INVALID FOR* Patellar tendinitis [M76.50] INVALID FOR* Morbid obesity [E66.01] INVALID FOR* Right renal mass [N28.89] INVALID FOR* Prescriptions ordered this encounter Disp Refills Start End IV CONTRAST (RADIOLOGY PROCEDURE) 1 Ea* 0 01/27/2018 01/28/2018 Class: In Office Sig: CT kidney wow Inject, intravenously, once for 1 dose.No IV access, insert saline lock prior to the beginning of sedation, infusion, injection of imaging exam. Discontinue saline lock post exam. If Pt. has a central line or IVAD, may access for administration according to line specific nursing protocol. Once exam is complete flush line and de-access according to line specific nursing protocol in the CT contrast administration guidelines link. Follow-up and Disposition History Recorded Letter Text Encounter Status:Closed by YUSUF FAJARDO DO, MBA on 01/28/18 CNPN Observed: 01/22/2018 Status: COMPLETED Source: [place] 12:00 AM [facility] REPOSITORY Telephone (UROLWS) JORGE ROQUE ([id number]) 1975 M Date Time Provider Department 01/22/18 DELMAR MENARD) UROLWS During your visit today, we recorded the following information about you: Real Alcaraz Ma 01/22/2018 1:40 PM Signed Delmar Menard PA-C reviewed CT images from [facility] and does not think further imaging studies are needed at this point. Images uploaded to [employer] and pt will be referred to Dr. Yusuf Fajardo. Please file consult order. Real Alcaraz Ma 01/23/2018 8:41 AM Signed Sent chart to Yusuf, he said he wants to see the patient next week, and he will have his office set it up , maybe just follow back around tomorrow afternoon, so patient is not overwhelmed by calls, what ever you think is best Thank you, Lori I called pt to make sure he was aware that we are cancelling the repeat CT Scan and that Dr. Fajardo's office would be contacting him to arrange appointment. Pt verbalizes understanding. Real Murphy Ma 01/26/2018 9:28 AM Signed Patient stating that he hasn't received a call yet from Dr. Fajardo's office. Patient asking if this office could contact them Meghan Kilpatrick 01/26/2018 1:55 PM Signed Spoke to patient, he is scheduled to see Dr. Fajardo tomorrow 01/27/18 @12:45 in the [place] office, address given-JF Meghan Kilpatrick Allergies As of Date: 01/22/2018 (No Known Allergies) Date Reviewed: 01/20/2018 Reviewed by: Mavis Pabon - Fully Assessed Reason for Visit: Referral Information [1872] Primary Visit Diagnosis:Renal mass [N28.89] Order(s):CONSULT TO UROLOGY [9041] Order #: [id number]: 1 Problem List As Of Date 01/22/2018 Noted Resolved Hypertension [I10] INVALID FOR* Left knee pain [M25.562] INVALID FOR* Patellar tendinitis [M76.50] INVALID FOR* Morbid obesity [E66.01] INVALID FOR* Right renal mass [N28.89] INVALID FOR* Follow-up and Disposition History Recorded Encounter Status:Closed by DELMAR MENARD PA-C on 01/23/18 CNCO Observed: 01/21/2018 Status: COMPLETED Source: [place] 12:00 AM [facility] REPOSITORY Letter Text Jameson Herrera MD [facility] Jorge Roque [address] [place] [address] Clinic #: [id number] 01/21/2018 Dear Mr. Roque, I have received the results of your recent tests. The results of your Urinalysis test were either normal or within the acceptable range. We can discuss this at your next visit. Please do not hesitate to contact me with any questions. Sincerely, Jameson Herrera MD [facility] Department electronically signed to expedite mailing PROGRESS Observed: 01/20/2018 Status: COMPLETED Source: [place] 11:41 AM [facility] REPOSITORY O ID: [id number] Author: Delmar Menard (Pa) Service: (none) Author Type: Physician Keying Machine Operator Type: Progress Notes Filed: 01/21/2018 9:29 PM Note Text: [facility] [place] PATIENT INFO: Jorge Roque 42 year old PCP: Jameson Herrera MD Referred by: Jameson Herrera MD Consult: Aconsultation requested by Jameson Herrera MD for an opinion regarding Renal Mass My final recommendations communicated back to the requesting physician by way of shared Medical record. CHIEF COMPLAINT: Renal Mass HPI: This is a 42 year old male, who has a Right Renal Mass , which started in 2018, and involves the Kidney Patient states this none in severity and none in quality, and is happening N/A Aggravating factors: No , Alleviating Factors: No . And the patient denies having Fever, Chills, Rigors, Nausea and Vomiting VOIDING SYMPTOMS: All GUROS reviewed, all were negative SEXUAL SYMPTOMS: None ALLERGY: ALLERGIES No Known Allergies MEDICATIONS: No current outpatient prescriptions on file. No current facility-administered medications for this visit. Past Medical History PAST MEDICAL HISTORY Diagnosis Date - Hypertension - Morbid obesity (HCC) - Opioid use disorder, mild, abuse see below - Substance abuse cocaine and cannabis per counseling center notes, seeing counseling center Past Surgical History PAST SURGICAL HISTORY Procedure Laterality Date - REPAIR UMBILICAL IONA,5+Y/O,REDUC 3-7-13 Family History FAMILY HISTORY Problem Relation Age of Onset - obesity [Other] [OTHER] Father - Hypertension Father - renal failure [Other] [OTHER] Paternal Grandmother - Arthritis Father - Hypertension Paternal Grandmother - Hypertension Paternal Grandfather - Heart Paternal Grandmother - Heart Paternal Grandfather - Diabetes Paternal Grandmother - Diabetes Paternal Grandfather - Diabetes Father REVIEW OF SYSTEMS: General: General: Well developed, well nourished. No acute distress HEENT: Negative for sore throat, difficulty swallowing. Negative for frequent or significant headaches, changes in vision or hearing. Cardiovascular: No history of cardiovascular symtoms or problems. No history of angina, CHF, ME, cardiac surgery of stents. Respiratory: Negative for current cough, dyspnea. No hx of pneumonia in the past six weeks Gastrointestinal: No history of GERD, PUD, abd pain, difficulty swallowing, GI bleed. Renal: Negative for renal failure and No history of dialysis, Recent Renal Mass on CT Musculoskeletal: Negative for joint pain or swelling, back pain or muscle pain. Skin: Negative for lesions, rash and itching. Psychological: No history of psychiatric symptoms or problems. Neurologic: No history of TIA's, stroke, SKIING TEACHER tumor, impaired sensorium, hemiplegia, paraplegia or quadriplegia. No neurological symptoms or problems. Hematology/Oncology: No history of bleeding or clotting disorder. Pt is not taking anti-coagulation or platelet medications. No history of hematological symptoms or problems. Endocrine: No history of endocrinological symtoms or problems No history of DM; has not taken steroids w/in past 30 days. Negative for excessive sweating, thirst or hunger PHYSICAL EXAMINATION: General Appearance/ Constitutional: Well developed, well nourished, and in no apparent distress HEENT: Not examined Neck: Lymph Nodes: Not examined Cardiac: Normal Breast: Not examined Pulmonary: Ascultation: Normal Effort: Normal GI: Soft, Benign and Non-tender Peripheral Vascular: Not examined Extremities: Cyanosis absent, Clubbing absent and Edema absent Skin: Normal Neurologic: Grossly non-focal, Alert and oriented and Affect appropriate ADDITIONAL DATA REVIEWED: Most recent imaging Most recent labs Results for orders placed or performed in visit on 01/04/16 GC/CHLAMYDIA DNA DET Result Value Ref Range GC/Chlam Amp Source Urine GC Amplification Negative for Neisseria gonorrhoeae by amplification. Chlamydia Amplification Negative for Chlamydia trachomatis by amplification. RADIOLOGY: YES CT Scan at [facility] Right Renal Mass - 3.7 cm IMPRESSION / PLAN: > History of 3.7 cm Right Renal Mass > Report does not state enhancement of renal mas > Ct Kidney JOSE, if Renal Mass enhances it was discussed that a Right Partial Nephrectomy may be needed > Refer patient to Dr. Fajardo for surgical consult if indicated I spent approximately 30 minutes in this visit, with more than 50% of the time devoted to patient discussion, counseling, review of records and/or coordination of care. Delmar Menard, MPAS, MT, PA-C URINALYSIS WITH Collected: 01/20/2018 Status: F Source: [facility] 11:41 AM [facility] REPOSITORY TYPE CODE TESTS RESULT OUT OF REFERENCE UNITS RANGE LAB UCOL Yellow Color Yellow LAB [facility] Clear Clarity Clear LAB UGLUC Negative mg/dL Glucose, Urine Negative LAB UBIL Negative Bilirubin, Urine Negative LAB [facility] Negative Ketones, Urine Negative LAB [facility] 1.005-1.030 Specific [place], Ur 1.018 LAB UHGB Negative Hemoglobin/Blood, Negative Ur LAB UPH 4.5-8.0 pH 7.0 LAB UPROT Negative mg/dL Protein, Urine Negative LAB UUROB Normal Urobilinogen Normal LAB UNITR Negative Nitrites Negative LAB ULKEST Negative Leukest Negative LAB UCOM Comments SEE COMMENT Result Comment: N/A LAB UMCOM Urine SEE Maxwell Comment COMMENT Result Comment: N/A LAB UWBC 0-5 /HPF WBC 0-5 LAB URBC 0-3 /HPF RBC 0-3 LAB UEPI /HPF Epithelial SEE Cells COMMENT Result Comment: Few Squamous Epithelial Cells Performed By: #### UAWMIC #### [facility] [address] [place], [place] [address] CNOV Observed: 01/20/2018 Status: COMPLETED Source: [place] 10:40 AM [facility] REPOSITORY Office Visit (UROLMN) JORGE ROQUE ([id number]) 1975 M Date Time Provider Department 01/20/18 10:40 AM DELMAR MENARD) UROLMN During your visit today, we recorded the following information about you: LAURA Boyer 01/21/2018 9:29 PM Signed Formerly [facility] [place] PATIENT INFO: Jorge Roque 42 year old PCP: Jameson Herrera MD Referred by: Jameson Herrera MD Consult: Aconsultation requested by Jameson Herrera MD for an opinion regarding Renal Mass My final recommendations communicated back to the requesting physician by way of shared Medical record. CHIEF COMPLAINT: Renal Mass HPI: This is a 42 year old male, who has a Right Renal Mass , which started in 2018, and involves the Kidney Patient states this none in severity and none in quality, and is happening N/A Aggravating factors: No , Alleviating Factors: No . And the patient denies having Fever, Chills, Rigors, Nausea and Vomiting VOIDING SYMPTOMS: All GUROS reviewed, all were negative SEXUAL SYMPTOMS: None ALLERGY: ALLERGIES No Known Allergies MEDICATIONS: No current outpatient prescriptions on file. No current facility-administered medications for this visit. Past Medical History PAST MEDICAL HISTORY Diagnosis Date - Hypertension - Morbid obesity (HCC) - Opioid use disorder, mild, abuse see below - Substance abuse cocaine and cannabis per counseling center notes, seeing counseling center Past Surgical History PAST SURGICAL HISTORY Procedure Laterality Date - REPAIR UMBILICAL IONA,5+Y/O,REDUC 3-7-13 Family History FAMILY HISTORY Problem Relation Age of Onset - obesity [Other] [OTHER] Father - Hypertension Father - renal failure [Other] [OTHER] Paternal Grandmother - Arthritis Father - Hypertension Paternal Grandmother - Hypertension Paternal Grandfather - Heart Paternal Grandmother - Heart Paternal Grandfather - Diabetes Paternal Grandmother - Diabetes Paternal Grandfather - Diabetes Father REVIEW OF SYSTEMS: General: General: Well developed, well nourished. No acute distress HEENT: Negative for sore throat, difficulty swallowing. Negative for frequent or significant headaches, changes in vision or hearing. Cardiovascular: No history of cardiovascular symtoms or problems. No history of angina, CHF, ME, cardiac surgery of stents. Respiratory: Negative for current cough, dyspnea. No hx of pneumonia in the past six weeks Gastrointestinal: No history of GERD, PUD, abd pain, difficulty swallowing, GI bleed. Renal: Negative for renal failure and No history of dialysis, Recent Renal Mass on CT Musculoskeletal: Negative for joint pain or swelling, back pain or muscle pain. Skin: Negative for lesions, rash and itching. Psychological: No history of psychiatric symptoms or problems. Neurologic: No history of TIA's, stroke, SKIING TEACHER tumor, impaired sensorium, hemiplegia, paraplegia or quadriplegia. No neurological symptoms or problems. Hematology/Oncology: No history of bleeding or clotting disorder. Pt is not taking anti-coagulation or platelet medications. No history of hematological symptoms or problems. Endocrine: No history of endocrinological symtoms or problems No history of DM; has not taken steroids w/in past 30 days. Negative for excessive sweating, thirst or hunger PHYSICAL EXAMINATION: General Appearance/ Constitutional: Well developed, well nourished, and in no apparent distress HEENT: Not examined Neck: Lymph Nodes: Not examined Cardiac: Normal Breast: Not examined Pulmonary: Ascultation: Normal Effort: Normal GI: Soft, Benign and Non-tender Peripheral Vascular: Not examined Extremities: Cyanosis absent, Clubbing absent and Edema absent Skin: Normal Neurologic: Grossly non-focal, Alert and oriented and Affect appropriate ADDITIONAL DATA REVIEWED: Most recent imaging Most recent labs Results for orders placed or performed in visit on 01/04/16 GC/CHLAMYDIA DNA DET Result Value Ref Range GC/Chlam Amp Source Urine GC Amplification Negative for Neisseria gonorrhoeae by amplification. Chlamydia Amplification Negative for Chlamydia trachomatis by amplification. RADIOLOGY: YES CT Scan at [facility] Right Renal Mass - 3.7 cm IMPRESSION / PLAN: ANDgt; History of 3.7 cm Right Renal Mass ANDgt; Report does not state enhancement of renal mas ANDgt; Ct Kidney JOSE, if Renal Mass enhances it was discussed that a Right Partial Nephrectomy may be needed ANDgt; Refer patient to Dr. Fajardo for surgical consult if indicated I spent approximately 30 minutes in this visit, with more than 50% of the time devoted to patient discussion, counseling, review of records and/or coordination of care. LUPE Cruz, MT, PA-C Referring Provider: JAMESON HERRERA [[id number]] Allergies As of Date: 01/20/2018 (No Known Allergies) Date Reviewed: 01/20/2018 Reviewed by: Mavis Pabon - Fully Assessed Primary Visit Diagnosis:Right renal mass [N28.89] Order(s):CT KIDNEY WO/W IVCON [7702802] Order #: [id number] [] iv contrast (radiology procedure)CT kidney wow Inject, intravenously, once for 1 dose.No IV access, insert saline lock prior to the beginning of sedation, infusion, injection of imaging exam. Discontinue saline lock post exam. If Pt. has a central line or IVAD, may access for administration according to line specific nursing protocol. Once exam is complete flush line and de- access according to line specific nursing protocol in the CT contrast administration guidelines link.Disp: 1 EachRfl: 0 CREATININE BLD [SQCRET] Order #: [id number] Prescriptions as of 01/20/2018 Sig: IV CONTRAST (RADIOLOGY PROCED* CT kidney wow Inject, intrave* Problem List As Of Date 01/20/2018 Noted Resolved Hypertension [I10] INVALID FOR* Left knee pain [M25.562] INVALID FOR* Patellar tendinitis [M76.50] INVALID FOR* Morbid obesity [E66.01] INVALID FOR* Right renal mass [N28.89] INVALID FOR* Prescriptions ordered this encounter Disp Refills Start End IV CONTRAST (RADIOLOGY PROCEDURE) 1 Ea* 0 01/20/2018 01/21/2018 Class: In Office Sig: CT kidney wow Inject, intravenously, once for 1 dose.No IV access, insert saline lock prior to the beginning of sedation, infusion, injection of imaging exam. Discontinue saline lock post exam. If Pt. has a central line or IVAD, may access for administration according to line specific nursing protocol. Once exam is complete flush line and de-access according to line specific nursing protocol in the CT contrast administration guidelines link. Disposition: Return in about 2 weeks (around 02/03/2018). Follow-up and Disposition History Recorded Encounter Status:Closed by DELMAR MENARD PA-C on 01/21/18 PROGRESS Observed: 01/06/2018 Status: COMPLETED Source: [place] 2:07 PM [facility] REPOSITORY O ID: [id number] Author: Jameson Herrera Service: (none) Author Type: Physician Type: Progress Notes Filed: 01/06/2018 2:25 PM Note Text: Patient presents with: ED Follow-up HPI: Patient presents today for office visit for ER follow up. HOSPITAL/ER FOLLOW UP: Reason for visit: fall Which facility: [facility] Date of visit: 12/26 Diagnosis: multiple contusions after mechanical fall on ice. Found incidental renal mass that they felt needed urologic follow up. Was discussed with Dr. Bach, urology but somehow patient made an appt with nephrology. Made appt with urology but not for over a month. No hematuria. There is a family hx of renal disease/grandfather has a hx of renal cancer. No issues urinating. He is obviously stressed over worrying about findings. No weight loss. Has been asymptomatic. Testing done: CT head and chest and abd Off bp meds. Doing well. bp has been ok. Seeing counseling center. He is on meds for depression but does not know what it is. Has some type of sleeping med as well. MEDICATIONS: No current outpatient prescriptions on file. No current facility-administered medications for this visit. ALLERGIES: ALLERGIES No Known Allergies PAST MEDICAL HISTORY Diagnosis Date - Hypertension - Morbid obesity (HCC) - Opioid use disorder, mild, abuse see below - Substance abuse cocaine and cannabis per counseling center notes, seeing counseling center PAST SURGICAL HISTORY Procedure Laterality Date - REPAIR UMBILICAL IONA,5+Y/O,REDUC 3-7-13 FAMILY HISTORY Problem Relation Age of Onset - obesity [Other] [OTHER] Father - Hypertension Father - renal failure [Other] [OTHER] Paternal Grandmother - Arthritis Father - Hypertension Paternal Grandmother - Hypertension Paternal Grandfather - Heart Paternal Grandmother - Heart Paternal Grandfather - Diabetes Paternal Grandmother - Diabetes Paternal Grandfather - Diabetes Father Social History Marital status: Spouse name: Years of education: Number of children: Social History Main Topics Smoking status: Never Smoker Smokeless status: Never Used Alcohol use: Yes Comment: very seldom Drug use: No Reviewed current medications, allergies, past medical history, surgical history, family history and social history today. REVIEW OF SYSTEMS All other reviewed and negative other than HPI. HEALTH MAINTENANCE: Reviewed health maintenance issues today and recommended the following in detail. LIPID SCREEN due on 09/26/2016 VITALS: BP 144/96 (BP Site: Left Arm, BP Position: Sitting, BP Cuff Size: Large Adult) Pulse 60 Resp 16 Wt (!) 181.9 kg (401 lb) BMI 60.97 kg/m2 Last 4 Encounter Wt Readings: Date: Wt: 01/06/2018 181.9 kg (401 lb) 11/26/2017 179.2 kg (395 lb) 08/25/2017 176.4 kg (389 lb) 03/11/2017 178.3 kg (393 lb) PHYSICAL EXAMINATION: General appearance: Well appearing, alert, in no acute distress, well-hydrated, well nourished. Skin: Skin color, texture, turgor normal, no suspicious rashes or lesions Head: Normocephalic, no masses, lesions, tenderness or abnormalities Lungs: Lungs clear to auscultation. No wheezing, rhonchi, rales Heart: RRR without murmur, gallop, or rubs. No ectopy Abdomen: Normal abdominal exam, Abdomen soft, non-tender. Bowel sounds normal. No masses, organomegaly Extremities: No deformities, edema, skin discoloration, clubbing or cyanosis. Good capillary refill. ASSESSMENT/PLAN: 1. Renal mass - ICD9: 593.9, ICD10: N28.89 (primary diagnosis) - see if we can get him into urology sooner. Check lab.s - BASIC METABOLIC PNL - CBC + DIFF - URINALYSIS WITH MICROSCOPIC 2. Morbid obesity (HCC) - ICD9: 278.01, ICD10: E66.01 - given instructions for weight loss. Discussed bariatrics 3. Essential hypertension - ICD9: 401.9, ICD10: I10 - suboptimal control - Encouraged dietary sodium restriction/DASH diet - Recommended regular aerobic exercise. - Discussed need and benefit for weight loss. - bp check in two weeks. - Goal of BP <140/90 4. Screening for lipid disorders - ICD9: V77.91, ICD10: Z13.220 - LIPID PANEL, NONFASTING Jameson Herrera MD CNCO Observed: 01/05/2018 Status: COMPLETED Source: [place] 12:00 AM [facility] REPOSIT[facility] Letter Text Yusuf Fajardo DO [facility] [address] [address] Jorge Roque January 05, 2018 Jorge Roque [address] [facility] [address] Dear Jorge Remedios Mya: Due to a change in your provider's schedule, it has become necessary to reschedule the following appointment: Yusuf Fajardo DO Date: February 12, 2018 Time: 11:00am We apologize for any inconvenience to you, however your provider would still like to see you. Please call us at [phone] to reschedule your appointment. Sincerely, Appointment Staff DISCHARGE INSTRUCTION Observed: 12/26/2017 Status: F Source: JESUS 11:20 PM [facility] REPOSITORY [facility] Medical Records Department [address] [place] [address] [place] [address] Discharge Instruction 12/26/17 2319 MR#: [id number] Acct: [id number] Name: JORGE ROQUE Rep #: [id number] : 1975 42 From: Radha Aaron MD PCP: Jameson Herrera MD Status: REG ER ED Disposition - Plan for ED Patient: Chief Complaint: Chest Other Instructions: ED Contusion Chest Wall Referrals: Jameson Herrera MD [Primary Care Provider] - Jhonathan Reilly MD [STAFF PHYSICIAN] - What to do if you have Problems For any increased pain, shortness of breath, bleeding, nausea or vomiting, chest pain, or any unexpected problems, contact your Primary Care Provider. Call [facility] ([phone]) or report to the closest Emergency Room. Call 911 if necessary. 12/26/172319 <Electronically signed by Radha Aaron MD> Date Radha Aaron MD Cosigner Signature (If Indicated): Date CC: Jameson Herrera MD EMERGENCY DEPARTMENT Observed: 12/26/2017 Status: F Source: JESUS SUMMARY 11:19 PM [facility] REPOSITORY [facility] Medical Records Department [address] [place] [address] Emergency Department Summary 12/26/17 1726 MR#: [id number] Acct: [id number] Name: JORGE ROQUE Rep #: [id number] : 1975 42 From: Radha Aaron MD PCP: Jameson Herrera MD Status: REG ER - ER Visit Summary Date of Service: 12/26/17 Chief Complaint: Fall History of Present Illness: The patient is a 42 M presenting after fall. Patient states he slipped on ice and fell. He believes he hit his head but did not lose consciousness. Complains of right lower chest and right upper abdominal pain. He has taken ibuprofen at home with no relief. He has been able to ambulate. Denies other complaints. Physical Examination: Vitals are stable. Patient is afebrile. Alert no acute distress. HEENT exam is unremarkable. Neck is supple. Lungs are clear and equal bilaterally. Right lower chest wall tenderness Heart is regular rate and rhythm. Abdomen is soft right upper quadrant tenderness. Extremities are unremarkable. Skin is warm and dry. No focal neurologic deficit. Remainder of exam is unremarkable. Emergency Department Course and Treatment: Patient is given morphine, Zofran IV with improvement. CT head shows no acute process. CT chest shows no acute process. CT abdomen shows no acute process, right renal mass. Recommend prompt urologic consultation to exclude neoplasm. Discussed with Dr Reilly who will see him for outpatient follow-up. Patient is advised importance of close follow-up. Advised return ED if worsening complaints. Disposition: Discharge home Impression: Chest wall contusion, status post mechanical fall, right renal mass This note was generated with Elements[employer] dictation software. It may contain incorrect words, spelling, and punctuation that were not noted in review of the chart prior to signing ED Disposition - Plan for ED Patient: Chief Complaint: Chest Other Referrals: Jameson Herrera MD [Primary Care Provider] - What to do if you have Problems For any increased pain, shortness of breath, bleeding, nausea or vomiting, chest pain, or any unexpected problems, contact your Primary Care Provider. Call [facility] ([phone]) or report to the closest Emergency Room. Call 911 if necessary. 12/26/17 3128 <Electronically signed by Radha Aaron MD> Date Radha Aaron MD Cosigner Signature (If Indicated): Date CC: Jameson Herrera MD BRAIN/HEAD WITHOUT Observed: 12/26/2017 Status: F Source: [place]ESUS CONTRAST 5:26 PM [facility] REPOSITORY [facility] Imaging Services [address] [place] [address] Brain/Head without Contrast MR#: [id number] Acct: [id number] Name: JORGE ROQUE Rep #: [id number] : 1975 M 42 From: Ethan Jamil MD PCP: Jameson Herrera MD Status: REG ER Study: Brain/Head without Contrast Date of Exam: 12/26/17 Exam# [id number] Ordering Dr: Radha Aaron MD STUDY: CT BRAIN WITHOUT CONTRAST REASON FOR EXAM: Male, 42 years old. Head trauma RADIATION DOSAGE (If Supplied By Facility): CTDIvol = ( 44.99 ) mGy, DLP = ( 812.98 ) mGycm TECHNIQUE: Transaxial CT imaging of the brain was performed without administration of intravenous contrast material. Individualized dose optimization techniques were used for this CT. COMPARISON: None. FINDINGS: Normal soft tissue structures. Normal calvarium. Normal size ventricles and extra-axial spaces for the patient's age. Normal white matter tracts of the cerebral hemispheres. Normal basal ganglia and thalami. Normal brainstem. Normal cerebellum. There is no intracranial hemorrhage. There are no findings of an acute ischemic infarction. Air-fluid level left maxillary sinus. CT/Brain/Head without Contrast IMPRESSION: Left maxillary sinusitis. No acute intracranial disease. Electronically Signed: Ethan Jamil MD at 18:44 EST , Service support , CC: Radha Aaron MD; Jameson Herrera MD Enrobing Machine Feeder: Signed ABDOMEN/PELVIS W IV CONT Observed: 12/26/2017 Status: F Source: JESUS ONLY 5:26 PM [facility] REPOSITORY [facility] Imaging Services [address] [place] [address] Abdomen/Pelvis W IV Cont ONLY MR#: [id number] Acct: [id number] Name: JORGE ROQUE Rep #: [id number] : 1975 M 42 From: Ethan Jamil MD PCP: Jameson Herrera MD Status: REG ER Study: Abdomen/Pelvis W IV Cont ONLY Date of Exam: 12/26/17 Exam# [id number] Ordering Dr: Radha Aaron MD STUDY: CT ABDOMEN AND PELVIS WITH CONTRAST REASON FOR EXAM: Male, 42 years old. Abdominal trauma RADIATION DOSAGE (If Supplied By Facility): CTDIvol = ( 24.75 ) mGy, DLP = ( 2295.72 ) mGycm TECHNIQUE: Transaxial images were obtained from the dome of the diaphragm to the symphysis pubis without oral contrast. 100 ml of Isovue 300 contrast was administered. Sagittal and coronal images were reconstructed. Individualized dose optimization techniques were used for this CT. COMPARISON: None. FINDINGS: The visualized lung bases are unremarkable. The visualized portions of the heart are within normal limits. Normal liver. Normal gallbladder and extrahepatic biliary system. Normal spleen. Normal pancreas. Normal bilateral adrenal glands. 3.7 cm ill-defined isodense right renal cortical mass. Left kidney normal. Normal visualized stomach. Normal small intestine. Normal colon. The appendix is visualized and appears normal. Normal abdominal aorta. Normal inferior vena cava. Normal retroperitoneum. Normal urinary bladder. Normal abdominal wall. Normal osseous structures. CT/Abdomen/Pelvis W IV Cont ONLY IMPRESSION: Right renal mass. Recommend prompt urologic consultation to exclude neoplasm. No acute traumatic sequelae. Electronically Signed: Ethan Jamil MD at 18:52 EST , Service support , CC: Radha Aaron MD; Jameson Herrera MD Enrobing Machine Feeder: Signed CHEST WITH CONTRAST Observed: 12/26/2017 Status: F Source: [place] 5:26 PM [facility] REPOSITORY [facility] Imaging Services [address] [place] [address] Chest WITH Contrast MR#: [id number] Acct: [id number] Name: JORGE ROQUE Rep #: [id number] : 1975 M 42 From: Zayda Vyas MD PCP: Jameson Herrera MD Status: REG ER Study: Chest WITH Contrast Date of Exam: 12/26/17 Exam# [id number] Ordering Dr: Radha Aaron MD STUDY: CT CHEST WITH CONTRAST REASON FOR EXAM: Male, 42 years old. Trauma RADIATION DOSAGE (If Supplied By Facility): CTDIvol = ( 24.75 ) mGy, DLP = ( 2295.72 ) mGycm TECHNIQUE: Transaxial imaging was performed following intravenous administration of 100 ml of Isovue 300 contrast material. Multiplanar coronal and sagittal images were reformatted. Individualized dose optimization techniques were used for this CT. COMPARISON: October 20, 2016 chest x-ray FINDINGS: The lungs are normal. There is no demonstrated pleural abnormality. Normal heart and pericardium. Normal mediastinum. Normal hilar regions. Normal enhanced pulmonary arteries. Normal aorta arch and descending thoracic aorta. The contrast bolus is limited to evaluate for PE. There is a suggestion of old right mid anterior rib fracture. Image #64. Also image #85. There is degenerative change in the visualized thoracic spine with multilevel bridging osteophytes. There is moderate to severe splenic enlargement. There is fatty infiltration of the liver there is a small hiatal hernia. CT/Chest WITH Contrast IMPRESSION: No visualized acute intrathoracic injury. There may be old right anterior rib fractures. No evidence of focal infiltrate. Moderate to severe visualized splenomegaly Small hiatal hernia Hepatic steatosis. Please refer to dedicated separate dictation CT scan of the abdomen and pelvis performed today Electronically Signed: Zayda Vyas MD at 21:26 EST Tel , Service support , CC: Radha Aaron MD; Jameson Herrera MD Enrobing Machine Feeder: Signed SR-ABDOMEN/PELVIS W IV CONT Observed: 12/26/2017 Status: F Source: [place] ONLY IMPORT 12:00 AM [facility] [place] REPOSITORY Images were obtained outside of [facility] [id number] Observed: 11/26/2017 Status: COMPLETED Source: [place] 1:59 PM [facility] REPOSITORY HNO ID: [id number] Author: Marguerite (Ramiro) Ivon Service: (none) Author Type: Nurse Practitioner Type: Progress Notes Filed: 11/26/2017 3:06 PM Note Text: HPI Jorge Roque is a 42 year old male who presents with cough, congestion, fever, sore throat, right ear drainage, and not sleeping well for the past 10 days. He took daytime/nighttime gel tablets at home. He went to the ER the other night but there was a 2 hour wait. Review of Systems Constitutional: Positive for chills, diaphoresis and malaise/fatigue. Negative for fever. HENT: Positive for congestion, ear pain (right), sinus pain and sore throat. Respiratory: Positive for cough, sputum production and shortness of breath. Cardiovascular: Positive for chest pain (ribs hurt from coughing). Gastrointestinal: Negative. Negative for abdominal pain, diarrhea, nausea and vomiting. Musculoskeletal: Negative. Negative for myalgias. Skin: Negative. Negative for rash. BP 126/86 Pulse 78 Temp 36.7 ?C (98.1 ?F) (Tympanic) Resp 18 Wt (!) 179.2 kg (395 lb) BMI 60.06 kg/m2 PAST MEDICAL HISTORY Diagnosis Date - Hypertension - Morbid obesity (HCC) - Opioid use disorder, mild, abuse see below - Substance abuse cocaine and cannabis per counseling center notes, seeing counseling center PAST SURGICAL HISTORY Procedure Laterality Date - REPAIR UMBILICAL IONA,5+Y/O,REDUC 3-7-13 ALLERGIES Review of patient's allergies indicates no known allergies. MEDICATIONS meloxicam (MOBIC) 15 mg tablet Take 1 tablet by mouth once daily. With food. clindamycin (CLEOCIN) 300 mg capsule Take 1 capsule by mouth four times daily. diclofenac sodium (VOLTAREN) 1 % topical gel Apply 1 g to affected area twice daily. Leg Brace (KNEE BRACE LARGE-XLARGE) Misc Use as instructed FAMILY HISTORY Problem Relation Age of Onset - obesity [Other] [OTHER] Father - Hypertension Father - renal failure [Other] [OTHER] Paternal Grandmother - Arthritis Father - Hypertension Paternal Grandmother - Hypertension Paternal Grandfather - Heart Paternal Grandmother - Heart Paternal Grandfather - Diabetes Paternal Grandmother - Diabetes Paternal Grandfather - Diabetes Father Social History Substance Use Topics - Smoking status: Never Smoker - Smokeless tobacco: Never Used - Alcohol use Yes Comment: very seldom Physical Exam Constitutional: He is well-developed, well-nourished, and in no distress. HENT: Head: Normocephalic. Right Ear: External ear and ear canal normal. No drainage. Tympanic membrane is injected. Left Ear: Tympanic membrane, external ear and ear canal normal. Eyes: Conjunctivae are normal. Right eye exhibits no discharge. Left eye exhibits no discharge. Neck: Neck supple. Cardiovascular: Normal rate, regular rhythm and normal heart sounds. Pulmonary/Chest: Effort normal. No respiratory distress. He has wheezes in the right upper field, the right lower field, the left upper field and the left lower field. SpO2 97% Post albuterol: lungs with scattered wheezes (improved) and SpO2 97% Lymphadenopathy: He has no cervical adenopathy. Neurological: He is alert. Skin: Skin is warm and dry. No rash noted. Nursing note and vitals reviewed. ASSESSMENT/PLAN: 1. Acute bronchitis, unspecified organism - ICD9: 466.0, ICD10: J20.9 - ALBUTEROL SULFATE CONCENTRATE 5 MG/ML(0.5 %) SOLUTION FOR NEBULIZATION - AZITHROMYCIN 250 MG TABLET - METHYLPREDNISOLONE 4 MG TABLETS IN A DOSE PACK - ALBUTEROL SULFATE HFA 90 MCG/ACTUATION AEROSOL INHALER - Follow-up with your PCP in 3-5 days if symptoms have not improved or sooner if symptoms worsen - Discussed red flags and need for immediate medical evaluation if any occur. - Discussed supportive care treatment with fluids, rest and analgesia. - Discussed expected course of illness Marguerite Del Valle CNP CNOV Observed: 11/26/2017 Status: COMPLETED Source: [place] 1:30 PM [facility] REPOSITORY Office Visit (WSTR) JORGE ROQUE ([id number]) 1975 M Date Time Provider Department 11/26/17 1:30 PM MARGUERITE DEL VALLE (CLOTH PIECER) WSTR During your visit today, we recorded the following information about you: Temperature Pulse Respiration Blood pressure 98.1 degrees 78/minute 18/minute 126/86 Weight 179.2 kg Marguerite Del Valle CNP 11/26/2017 3:06 PM Signed HPI Jorge Whittaker Mya is a 42 year old male who presents with cough, congestion, fever, sore throat, right ear drainage, and not sleeping well for the past 10 days. He took daytime/nighttime gel tablets at home. He went to the ER the other night but there was a 2 hour wait. Review of Systems Constitutional: Positive for chills, diaphoresis and malaise/fatigue. Negative for fever. HENT: Positive for congestion, ear pain (right), sinus pain and sore throat. Respiratory: Positive for cough, sputum production and shortness of breath. Cardiovascular: Positive for chest pain (ribs hurt from coughing). Gastrointestinal: Negative. Negative for abdominal pain, diarrhea, nausea and vomiting. Musculoskeletal: Negative. Negative for myalgias. Skin: Negative. Negative for rash. BP 126/86 Pulse 78 Temp 36.7 ?C (98.1 ?F) (Tympanic) Resp 18 Wt (!) 179.2 kg (395 lb) BMI 60.06 kg/m2 PAST MEDICAL HISTORY Diagnosis Date - Hypertension - Morbid obesity (HCC) - Opioid use disorder, mild, abuse see below - Substance abuse cocaine and cannabis per counseling center notes, seeing counseling center PAST SURGICAL HISTORY Procedure Laterality Date - REPAIR UMBILICAL IONA,5+Y/O,REDUC 3-7-13 ALLERGIES Review of patient's allergies indicates no known allergies. MEDICATIONS meloxicam (MOBIC) 15 mg tablet Take 1 tablet by mouth once daily. With food. clindamycin (CLEOCIN) 300 mg capsule Take 1 capsule by mouth four times daily. diclofenac sodium (VOLTAREN) 1 % topical gel Apply 1 g to affected area twice daily. Leg Brace (KNEE BRACE LARGE-XLARGE) Misc Use as instructed FAMILY HISTORY Problem Relation Age of Onset - obesity [Other] [OTHER] Father - Hypertension Father - renal failure [Other] [OTHER] Paternal Grandmother - Arthritis Father - Hypertension Paternal Grandmother - Hypertension Paternal Grandfather - Heart Paternal Grandmother - Heart Paternal Grandfather - Diabetes Paternal Grandmother - Diabetes Paternal Grandfather - Diabetes Father Social History Substance Use Topics - Smoking status: Never Smoker - Smokeless tobacco: Never Used - Alcohol use Yes Comment: very seldom Physical Exam Constitutional: He is well-developed, well-nourished, and in no distress. HENT: Head: Normocephalic. Right Ear: External ear and ear canal normal. No drainage. Tympanic membrane is injected. Left Ear: Tympanic membrane, external ear and ear canal normal. Eyes: Conjunctivae are normal. Right eye exhibits no discharge. Left eye exhibits no discharge. Neck: Neck supple. Cardiovascular: Normal rate, regular rhythm and normal heart sounds. Pulmonary/Chest: Effort normal. No respiratory distress. He has wheezes in the right upper field, the right lower field, the left upper field and the left lower field. SpO2 97% Post albuterol: lungs with scattered wheezes (improved) and SpO2 97% Lymphadenopathy: He has no cervical adenopathy. Neurological: He is alert. Skin: Skin is warm and dry. No rash noted. Nursing note and vitals reviewed. ASSESSMENT/PLAN: 1. Acute bronchitis, unspecified organism - ICD9: 466.0, ICD10: J20.9 - ALBUTEROL SULFATE CONCENTRATE 5 MG/ML(0.5 %) SOLUTION FOR NEBULIZATION - AZITHROMYCIN 250 MG TABLET - METHYLPREDNISOLONE 4 MG TABLETS IN A DOSE PACK - ALBUTEROL SULFATE HFA 90 MCG/ACTUATION AEROSOL INHALER - Follow-up with your PCP in 3-5 days if symptoms have not improved or sooner if symptoms worsen - Discussed red flags and need for immediate medical evaluation if any occur. - Discussed supportive care treatment with fluids, rest and analgesia. - Discussed expected course of illness RAMIRO Cohen CNP 11/26/2017 2:41 PM Signed ACUTE BRONCHITIS: You have acute bronchitis. This means the airway passages in your lungs are inflamed. Bronchitis may be caused by viruses or bacteria. Inhaling cigarette smoke will always make it worse. Exposure to irritating chemicals or second hand smoke as well as allergies can contribute to bronchitis. Repeat episodes of bronchitis may cause lifelong lung problems. Acute bronchitis is usually treated with rest, fluids, cough medicine, and possibly antibiotics or inhaled medicine to open up the small airways. It is very important that you avoid smoke and drink increased amounts of fluids. A cool air vaporizer can help thin bronchial secretions. This makes it easier to cough and clear your chest. If you are a cigarette smoker, consider using nicotine gum or skin patches to help you withdraw. Recovery from bronchitis is often slow, but you should start feeling better after 2-3 days of treatment. Please call your doctor or return here if you have any of the following symptoms: - Increased fever, chills, or chest pain. - Severe shortness of breath or bloody sputum. - Do not improve after 3 days of proper treatment. Stacy Cardenas Ma 11/26/2017 3:21 PM Signed 2.5ml solution aerosol treatment given per doctor's order at 2:17pm. O2 sat is 97% on room air. Vital signs Treatment completed at 2:27pm. O2 sat is 97 % on room air Tolerated well. Referring Provider: SELF [200] Allergies As of Date: 11/26/2017 (No Known Allergies) Date Reviewed: 11/26/2017 Reviewed by: Marguerite (Ramiro) Ivon - Fully Assessed Reason for Visit: Head Congestion [234] Cmt: ear pressure, sinus drainage, cough, fever x 2 weeks Primary Visit Diagnosis:Acute bronchitis, unspecified organism [J20.9] Order(s):albuterol (PROVENTIL) 5 mg/mL nebuInhale 0.5 mL as instructed one time only for 1 dose. 1 DOSE NOW - BACK OFFICE. PLACE 0.5 ML PER DROPPER AND 2.5 ML OF NORMAL SALINE INTO RESERVOIR.Disp: 1 mLRfl: 0 azithromycin (ZITHROMAX) 250 mg tabletTake 2 tablets today then one tablet daily for 4 days.Disp: 6 tabletRfl: 0 methylPREDNISolone (MEDROL DOSE-PACK) 4 mg Dose-PackAs Instructed per packageDisp: 1 PackageRfl: 0 albuterol HFA (VENTOLIN HFA) 90 mcg/actuation inhalerInhale 2 Puffs as instructed every 4 hours as needed.Disp: 1 InhalerRfl: 0 Prescriptions as of 11/26/2017 Sig: ALBUTEROL SULFATE CONCENTRATE* Inhale 0.5 mL as instructed o* AZITHROMYCIN 250 MG TABLET Take 2 tablets today then one* METHYLPREDNISOLONE 4 MG TABLE* As Instructed per package ALBUTEROL SULFATE HFA 90 MCG/* Inhale 2 Puffs as instructed * LEG BRACE Use as instructed Medication notes this encounter ALBUTEROL SULFATE CONCENTRATE 5 MG/ML(0.5 %) SOLUTION FOR NEBULIZATION >> Stacy Cardenas Ma 11/26/2017 3:20 PM >> STACY CARDENAS MA FriNov 26, 2017 3:20 PM 2.5ml solution aerosol treatment given per doctor's order at 2:17pm. O2 sat is 97% on room air. Vital signs Treatment completed at 2:27pm. O2 sat is 97 % on room air Tolerated well. MELOXICAM 15 MG TABLET >> Stacy Cardenas Ma 11/26/2017 1:41 PM >> STACY CARDENAS MA FriNov 26, 2017 1:41 PM done DICLOFENAC 1 % TOPICAL GEL >> Stacy Cardenas Ma 11/26/2017 1:41 PM >> STACY CARDENAS MA FriNov 26, 2017 1:41 PM done LEG BRACE >> Stacy Cardenas Ma 11/26/2017 1:41 PM >> STACY CARDENAS MA FriNov 26, 2017 1:41 PM done Problem List As Of Date 11/26/2017 Noted Resolved Hypertension [I10] INVALID FOR* Left knee pain [M25.562] INVALID FOR* Patellar tendinitis [M76.50] INVALID FOR* Morbid obesity [E66.01] INVALID FOR* Other instructions from your clinician: ACUTE BRONCHITIS: You have acute bronchitis. This means the airway passages in your lungs are inflamed. Bronchitis may be caused by viruses or bacteria. Inhaling cigarette smoke will always make it worse. Exposure to irritating chemicals or second hand smoke as well as allergies can contribute to bronchitis. Repeat episodes of bronchitis may cause lifelong lung problems. Acute bronchitis is usually treated with rest, fluids, cough medicine, and possibly antibiotics or inhaled medicine to open up the small airways. It is very important that you avoid smoke and drink increased amounts of fluids. A cool air vaporizer can help thin bronchial secretions. This makes it easier to cough and clear your chest. If you are a cigarette smoker, consider using nicotine gum or skin patches to help you withdraw. Recovery from bronchitis is often slow, but you should start feeling better after 2-3 days of treatment. Please call your doctor or return here if you have any of the following symptoms: - Increased fever, chills, or chest pain. - Severe shortness of breath or bloody sputum. - Do not improve after 3 days of proper treatment. Visit Notes: >> Stacy Cardenas Ma FriNov 26, 2017 3:21 PM Status: Signed 2.5ml solution aerosol treatment given per doctor's order at 2:17pm. O2 sat is 97% on room air. Vital signs Treatment completed at 2:27pm. O2 sat is 97 % on room air Tolerated well. Prescriptions ordered this encounter Disp Refills Start End ALBUTEROL SULFATE CONCENTRATE 5 MG/M* 1 mL 0 11/26/2017 11/26/2017 Class: In Office Route: INHALATION Sig: Inhale 0.5 mL as instructed one time only for 1 dose. 1 DOSE NOW - BACK OFFICE. PLACE 0.5 ML PER DROPPER AND 2.5 ML OF NORMAL SALINE INTO RESERVOIR. AZITHROMYCIN 250 MG TABLET 6 ta* 0 11/26/2017 Sig: Take 2 tablets today then one tablet daily for 4 days. METHYLPREDNISOLONE 4 MG TABLETS IN A* 1 Pa* 0 11/26/2017 Sig: As Instructed per package ALBUTEROL SULFATE HFA 90 MCG/ACTUATI* 1 In* 0 11/26/2017 Route: INHALATION Sig: Inhale 2 Puffs as instructed every 4 hours as needed. Medications Discontinued During This Encounter meloxicam (MOBIC) 15 mg tablet 30 t* 2 10/17/2017 11/26/2017 Route: ORAL Sig: Take 1 tablet by mouth once daily. With food. Disc: Reason for discontinue is not on file. clindamycin (CLEOCIN) 300 mg capsule 40 c* 0 08/25/2017 11/26/2017 Route: ORAL Sig: Take 1 capsule by mouth four times daily. Disc: Reason for discontinue is not on file. diclofenac sodium (VOLTAREN) 1 % top* 30 g 1 07/01/2016 11/26/2017 Class: Med Update Route: TOPICAL Sig: Apply 1 g to affected area twice daily. Disc: Reason for discontinue is not on file. Encounter Status:Closed by MARGUERITE DEL VALLE on 11/26/17 ALLERGIES ALLERGIES DATE TYPE / NAME / CODE REACTION SEVERITY SOURCE CODE 11/02/2018 Drug hydrocortisone/F0060 Rash Unknown [place] Allergy/41 88945(RXNORM[facility] 11/02/2018 Drug tramadol/[id number]( Nausea Unknown [place] Allergy/41 RXNORM) [facility] 04/22/2018 DRUG HYDROCORTISONE RASH [address] 2355043( Repository OMED CT) 04/22/2018 DRUG TRAMADOL GI UPSET [address] 3475928( Repository OMED CT) Drug NO KNOWN ALLERGIES [facility] Class/4195 Other [place] [address](SN Repository ED CT) NG/4533242 NO KNOWN ALLERGIES [facility] 06([facility]) Repository ENCOUNTERS ENCOUNTERS ADMIT/DISCHARGE ACCOUNT NUMBER ADMITTING ENCOUNTER LOCATION SOURCE CLASS 11/02/2018/11/02/20 [id number] Emergency [address] ding:ED Repository 10/15/2018/10/15/20 [id number] Emergency [address] ding:ED Repository 10/15/2018/10/16/20 [id number] Ambulatory [address] Repository 10/12/2018/10/12/20 [id number] Ambulatory [address] Repository 09/23/2018/09/23/20 [id number] Ambulatory [address] Repository 09/23/2018/09/23/20 [id number] Ambulatory [address] Repository 09/15/2018/09/16/20 [id number] Ambulatory [address] Repository 09/10/2018/09/10/20 [id number] Emergency [place] ding:ED Repository 09/06/2018/09/06/20 [id number] Emergency [place] ding:ED Repository 09/03/2018/09/04/20 [id number] Ambulatory [address] Repository 08/26/2018/08/26/20 [id number] Emergency [place] ding:ED Repository 08/07/2018/08/07/20 [id number] Emergency [place] ding:ED Repository 07/14/2018/07/14/20 [id number] Emergency [place] ding:ED Repository 07/13/2018/07/15/20 [id number] Ambulatory [address] Repository 07/06/2018/07/06/20 [id number] Emergency [address] ding:ED Repository 07/06/2018/07/07/[id number] Repository 06/23/2018/06/23/20 [id number] Emergency [place] ding:ED Repository 06/18/2018/06/18/20 [id number] Emergency [place] ding:ED Repository 06/02/2018/06/02/20 [id number] Ambulatory Building:[address] One Repository 06/02/2018/06/02/[id number] Carla Chopra [place] [address] Hali Liriano lding:Derek [place] and Carla George DeptRoom: [address] D1IYHsy: Repository A1E A1ED05 06/02/2018/06/03/20 [id number] Ambulatory [address] Repository 05/29/2018/05/29/20 [id number] Ambulatory BMSBuilding: [facility] 18 [facility] Repository 05/20/2018/05/20/20 [id number] [facility] ding:ED Repository 05/10/2018/05/10/20 [id number] Emergency [place] 18 [facility] ding:ED Repository 05/06/2018/05/06/20 [id number] Emergency [place] ding:ED Repository 04/30/2018/04/30/20 [id number] Emergency [place] ding:ED Repository 04/22/2018/06/02/20 [id number] Ambulatory [address] Repository 04/20/2018/04/20/20 [id number] Emergency BBuilding:TATIANA [address] Repository 04/20/2018/04/20/20 [id number] Emergency [place] ding:ED Repository 04/14/2018/04/15/20 [id number] Ambulatory [address] Repository 04/09/2018/04/09/20 [id number] Ambulatory [address] Repository 04/06/2018/04/06/20 [id number] Ambulatory [address] Repository 04/02/2018/04/02/20 [id number] Emergency [place] ding:ED Repository 03/19/2018/03/19/20 [id number] Ambulatory [address] Repository 03/15/2018/03/15/20 [id number] Emergency [place] ding:ED Repository 03/09/2018/03/11/20 [id number] [place] Ambulatory [address] Repository 03/09/2018/03/11/20 [id number] [place], Inpatient [address] MEDICAL Repository CENTERBuildi nRoom: 5123Bed: 03/05/2018 [id number] Ambulatory [facility] Other [place] Repository 03/05/2018/03/05/20 [id number] Ambulatory [address] MEDICAL Repository CENTERBuildi ng:AKLBB 03/05/2018 [id number] Ambulatory [facility] Repository 03/05/[id number] [facility] MEDICAL Repository CENTERBuildi ng:AKXRB 03/05/2018 [id number] Ambulatory [facility] Repository 03/05/[id number] [facility] MEDICAL Repository CENTERBuildi ng:AKPSTB 03/02/[id number] [facility] MEDICAL Repository CENTERBuildi ng:AKPSTB 02/20/2018/02/25/20 [id number] Ambulatory [address] Repository 02/16/2018 [id number] Ambulatory [facility] Repository 02/08/2018/02/09/20 [id number] Emergency [address] ding:ED Repository 02/06/2018 [id number] Ambulatory [facility] Other [place] Repository 01/27/2018/01/28/20 [id number] Ambulatory [address] Other [place] Repository 01/27/2018/01/28/20 [id number] Ambulatory [address] MEDICAL Repository CENTERBuildi ng:AKUF 01/20/2018 [id number] Ambulatory [facility] [place] Repository 01/06/2018/01/08/20 [id number] Ambulatory [address] Repository 12/26/2017/12/26/19 [id number] Emergency [place] ding:ED Repository 11/26/2017/11/28/19 [id number] Ambulatory [address] Repository 11/20/2017/11/20/19 [id number] Emergency [address] ding:ED Repository PAYERS PAYERS ENCOUNTER GUARANTOR PAYER SUBSCRIBER SOURCE 11/02/2018 JORGE Whittaker Primary NOT GIVENUNK [place] [id number] Insurance:SELF PAY [place] Number: Effective Repository [id number]: (330) Date:2018-11-02 [phone] (HP) 10/15/2018 JORGE J Primary JORGE J [place] [id number] Insurance:BUCKEYE CONAWAYDOB: [facility] [id number] Number: Repository [id number]: 330 [id number] [phone] (HP) Date:4568-09-62IW [address] [place] [address] 33522ZH: 10/15/2018 Secondary NOT GIVENUNK [place] Insurance:SELF PAY [facility] Number: Effective Repository Date:2018-10-15 09/10/2018 JORGE J Primary JORGE J [place] [id number] Insurance:BUCKEYE CONAWAYDOB: [facility] [id number] PLANPolicy Number: Repository [address]Ihm: 330 [id number] [phone] (HP) Date:4547-43-69BI [address] [place] [address] 06022HZ: 09/10/2018 Secondary NOT GIVENUNK [place] Insurance:SELF PAY [facility] Number: Effective Repository Date:2018-09-10 09/06/2018 JORGE J Primary JORGE J [place] [id number] Insurance:BUCKEYE CONAWAYDOB: [facility] [id number] PLANPolicy Number: Repository [address]Idt: 330 [id number] [phone] (HP) Date:8584-92-42BW [address] [place] [address] 22569LK: 09/06/2018 Secondary NOT GIVENUNK [place] Insurance:SELF PAY [facility] Number: Effective Repository Date:2018-09-06 08/26/2018 JORGE J Primary JORGE J [place] [id number] Insurance:BUCKEYE CONAWAYDOB: [facility] [id number] PLANPolicy Number: Repository [id number]: 364) [id number] [phone] (HP) Date:9454-82-61SX [address] [place] [address] 63980WS: 08/26/2018 Secondary NOT GIVENUNK [place] Insurance:SELF PAY [facility] Number: Effective Repository Date:2018-08-26 08/07/2018 JORGE Whittaker Primary JORGE Whittaker [place] [id number] Insurance:BUCKEYE CONAWAYDOB: [facility] [id number] PLAN[place] Number: Repository [address]Jzu: 330 [id number] [phone] (HP) Date:7060-91-17IV [address] [place] [address] 94689WD: 08/07/2018 Secondary NOT GIVENUNK [place] Insurance:SELF PAY [facility] Number: Effective Repository Date:2018-08-07 07/14/2018 JORGE Whittaker Primary JORGE Whittaker [place] [id number] Insurance:BUCKEYE CONAWAYDOB: [facility] [id number] [facility] Medical CenterPolicy Number: Repository [id number]: 330 [id number] [phone] (HP) Date:1500-52-04SO [address] [place] [address] 68994LQ: 07/14/2018 Secondary NOT GIVENUNK [place] Insurance:SELF PAY [facility] Number: Effective Repository Date:2018-07-14 07/06/2018 JORGE J Primary JORGE J [place] [id number] Insurance:BUCKEYE CONAWAYDOB: [facility] [id number] PLANPolicy Number: Repository [id number]: 330 [id number] [phone] (HP) Date:0850-10-86GZ [address] [place] [address] 93784DM: 07/06/2018 Secondary NOT GIVENUNK [place] Insurance:SELF PAY [facility] Number: Effective Repository Date:2018-07-06 06/23/2018 JORGE J Primary JORGE J [place] [id number] Insurance:BUCKEYE CONAWAYDOB: [facility] [id number] PLANPolicy Number: Repository [id number]: (330) [id number] [phone] (HP) Date:4510-57-38[address]ATERINBH[address]I ARMANDO [address]MA: 06/23/2018 Secondary NOT GIVENUNK [place] Insurance:SELF PAY [facility] Number: Effective Repository Date:2018-06-23 06/18/2018 JORGE J Primary JORGE J [place] [id number] Insurance:BUCKEYE CONAWAYDOB: [facility] [id number] PLANPolicy Number: Repository [address]Aip: 330 [id number] [phone] (HP) Date:4745-38-06KY [address]I MONTEMAYOR [address]IE: 06/18/2018 Secondary NOT GIVENUNK [place] Insurance:SELF PAY [facility] Number: Effective Repository Date:2018-06-18 06/02/2018 Primary [facility] Insurance:[place] CONAWAYDOB: [facility] [id number] PlanPolicy Number: 5 [facility] Repository [id number] [place] Date:Plan [address]Bxa: (330) Name:[facility] [address] [phone] (HP) 620JeetBHARTI Ramos [address]25[address]OI: 05/29/2018 JORGE Primary JORGE J [place] [id number] Insurance:BUCKEYE CONAWAYDOB: [facility] 1736-27-08[place] PLANPolicy Number: Repository 58802Hkv: 330 [id number] [phone] (HP) Date:7277-33-51KL [address] MONTEMAYOR 15975XZ: 05/29/2018 Secondary NOT GIVENUNK [place] Insurance:SELF PAY [facility] Number: Effective Repository Date:2018-05-27 05/20/2018 Jorge J Primary Jorge J [place] [id number] Insurance:BUCKEYE ConawayDOB: [facility] [id number] Alabama Medical CenterPolic Number: Repository [id number]: 330 [id number] [phone] (HP) Date:0329-66-37UD [address] [place] [address] 57756LV: 05/20/2018 Secondary NOT GIVENUNK [place] Insurance:SELF PAY [facility] Number: Effective Repository Date:2018-05-20 05/10/2018 Jorge J Primary Jorge J [place] [id number] Insurance:BUCKEYE ConawayDOB: [facility] [id number] PLANPolicy Number: Repository [address]Kui: 330 [id number] [phone] (HP) Date:4727-75-30GR [address] [place] [address] 97016XC: 05/10/2018 Secondary NOT GIVENUNK [place] Insurance:SELF PAY [facility] Number: Effective Repository Date:2018-05-10 05/06/2018 Jorge J Primary Jorge J [place] [id number] Insurance:BUCKEYE ConawayDOB: [facility] [id number] Alabama Medical CenterPolic Number: Repository [address]Dlj: 330 [id number] [phone] (HP) Date:4385-81-85UW [address] [place] [address] 53021GK: 05/06/2018 Secondary NOT GIVENUNK [place] Insurance:SELF PAY [facility] Number: Effective Repository Date:2018-05-06 04/30/2018 Jorge J Primary Jorge J [place] [id number] Insurance:BUCKEYE ConawayDOB: [facility] [id number] Alabama Medical CenterPolicy Number: Repository [address]Xdm: (742) [id number] [phone] (HP) Date:8209-52-89ED [address] [place] [address] 17014BD: 04/30/2018 Secondary NOT GIVENUNK [place] Insurance:SELF PAY [facility] Number: Effective Repository Date:2018-04-30 04/20/2018 JORGE J Primary JORGE Whittaker [facility] CONAWAYDOB: Insurance:BUCKEYE CONAWAYDOB: [facility] HEALTH PLANPolicy [id number] Repository [facility] Number: [address] [place] [id number] HOME [place], [address]Jcn: (330) Date:2018-04-17 - 88[address]Ksu: [phone] (HP) [id number] Name:[address] ()Tel: (838) [address] [phone] () [phone]: 04/20/2018 Jorge Whittaker Primary Jorge Whittaker [place] [id number] Insurance:BUCKEYE ConawayDOB: [facility] [id number] Lake Medical Center Number: Repository [id number]: 330 [id number] [phone] (HP) Date:4630-28-67RI [address] [place] [address] 73161SQ: 04/20/2018 Secondary NOT GIVENUNK Jesus Insurance:SELF PAY [facility] Number: Effective Repository Date:2018-04-20 04/02/2018 Jorge J Primary Jorge J [place] [id number] Insurance:BUCKEYE ConawayDOB: [id number]: Repository [id number]: 330 [id number] [phone] (HP) Date:1741-20-61PM [address] [place] [address] 66369CI: 04/02/2018 Secondary NOT GIVENUNK Jesus Insurance:SELF PAY [facility] Number: Effective Repository Date:2018-04-02 03/15/2018 Jorge J Primary Jorge J Jesus [id number] Insurance:BUCKEYE ConawayDOB: Community [facility] [address] [facility] [id number] [facility] vince LILLY Number: Repository [id number]: (022) [id number] [phone] (HP) Date:8357-01-04[address] [place] [address]RR: 03/15/2018 Secondary NOT GIVENUNK Jesus Insurance:SELF PAY [facility] Number: Effective Repository Date:2018-03-15 03/09/2018 JORGE J Primary JORGE J [facility] CONAWAYDOB: Insurance:BUCKEYE CHP CONAWAYDOB: [facility] MEDICAIDPolicy [id number] Repository [address] Number: [place] [id number]: (330) Date: [phone] (HP) 03/05/2018 JORGE J Primary JORGE J [facility] CONAWAYDOB: Insurance:BUCKEYE CHP CONAWAYDOB: [facility] MEDICAIDPolicy [id number] Repository [address] Number: [place] [id number]: (330) Date: [phone] (HP) 03/05/2018 JORGE J Primary JORGE J [facility] CONAWAYDOB: Insurance:BUCKEYE CHP CONAWAYDOB: [facility] MEDICAIDPolicy [id number] Repository [address] Number: [place] [id number]: (330) Date: [phone] (HP) 03/05/2018 JORGE J Primary JORGE J [facility] CONAWAYDOB: Insurance:BUCKEYE CHP CONAWAYDOB: [facility] MEDICAIDPolicy [id number] Repository [address] Number: [place], [place] [id number] [id number]: (330) Date: [phone] (HP) 03/02/2018 JORGE Whittaker Primary JORGE Whittaker [facility] CONAWAYDOB: Insurance:GRISELEYE ANGELICP CONAWAYDOB: [facility]IDPol[facility] [id number] Repository [address] Number: [place] [id number]: (330) Date: [phone] (HP) 02/08/2018 Jorge J Primary Jorge J Jesus [id number] Insurance:BUCKEYE ConawayDOB: [facility] [id number]: Repository [id number]: (330) [id number] [phone] (HP) Date:0517-21-89JD [address] [address]SF: 02/08/2018 Secondary NOT GIVENUNK Jesus Insurance:SELF PAY [facility] Number: Effective Repository Date:2018-02-08 01/27/2018 JORGE J Primary JORGE Whittaker [facility] CONAWAYDOB: Insurance:JULIAE ANGELICP CONAWAYDOB: [facility] MEDICAIDPolicy [id number] Repository [address] Number: [place] [id number]: (330) Date: [phone] (HP) 12/26/2017 Jorge J Primary Jorge Whittaker [place] [id number] Insurance:BUCKEYE ConawayDOB[facility] [id number] PLAN[place] Number: Repository [id number]: (330) [id number] [phone] (HP) Date:3251-94-97RM [address] [place] [address] 85361UJ: 12/26/2017 Secondary NOT GIVENUNK [place] Insurance:SELF PAY [facility] Number: Effective Repository Date:2017-12-26 11/20/2017 Jorge J Primary Jorge J [place] [id number] Insurance:MELCHOR GiffordB: [facility] [id number] [facility] Number: Repository [id number]: (954) [id number] [phone] () Date:7359-69-17YJ [address] [place] [address] 99546CK: 11/20/2017 Secondary NOT GIVENKYAW Lee Insurance:SELF PAY [facility] Number: Effective Repository Date:2017-11-20
== END 2018-10-15 23:04 | disposition home or self-care (01) ==
LOC: ED 22:45
PROVIDERS: Emergency Provider Emergency Medicine; Family Provider Family Medicine; PCP Family Medicine
DX: S20.211A Contusion of right front wall of thorax, initial encounter (principal); W00.0XXA Fall on same level due to ice and snow, initial encounter; I10 Essential (primary) hypertension
CPT/HCPCS: 71111; 72170; 99283

== ENCOUNTER 2018-11-02 20:07 | Emergency (ER) | payer SELFPAY ==
[2018-11-02 20:08] VITALS: BP 165/90; PULSE 73; RESP 20; TEMP 36.6; O2SAT 94; BMI 58.3
--- NOTE | 2018-11-02 21:05 | ED.VISSUMM ---
- ER Visit Summary Date of Service: 11/02/18 Chief Complaint: Psychiatric eval History of Present Illness: The patient is a 43 M presenting for psychiatric evaluation. Patient reports that he has been having some interpersonal conflicts lately. Patient reports that he had a long time significant other of 9 years that he had kids with that he is recently estranged from. He states that he felt like he was starting to get over her, and was starting to see other people, and now he reports that she is trying to come back into the picture. He reports that he has been having some phone conflicts with her, and was becoming exasparated by this and made a comment to her would be better if I just was not here. Patient states that he was frustrated, but does not feel suicidal. He denies being homicidal or hallucinating. He does not feel that he is a risk to himself or others. Patient states that he has been out of his Zoloft and Wellbutrin for a week or so now, and has an appointment with his psychiatrist tomorrow to get that refilled. Physical Examination: Vital signs are within normal limits, patient is afebrile. Well-nourished male no acute distress. Head normocephalic. PRL. Heart regular rate. No respiratory distress. Active full range of motion of the extremities. Skin normal color. Psyc: Normal affect, good insight, good judgment, no suicidal or homicidal ideations Test Results: None indicated Emergency Department Course and Treatment: Patient presented for psychiatric evaluation. I do not feel that the patient requires forced admission at this time. He was given doses of his Zoloft and Wellbutrin, and will follow up with his psychiatrist tomorrow. Disposition: Discharge Impression: 1. Depression This note was generated with [employer]ation software. It may contain incorrect words, spelling, and punctuation that were not noted in review of the chart prior to signing ED Disposition - Plan for ED Patient: Disposition: Home or Assisted Living Chief Complaint: Mental Health Diagnosis: Depression Instructions: ED Depression Additional Instructions: Followup with your Psychiatrist tomorrow as scheduled. Return if you feel at all unsafe.
[2018-11-02] MEDS: buPROPion (SR) 150 MG Tablet.SA PO (21:23)
[2018-11-02] MEDS: Sertraline 50 MG Tablet PO (21:24)
--- OUTSIDE RECORDS SUMMARY | 2019-02-04 10:27 | XMS RPT_ITS ---
:1975 Author Organization [place] Support Name Relationship Address Phone MYA, ALEKSEY/KYLEE Unavailable [address] + [place] [address] UE Unavailable Unavailable Unavailable MYA, ALEKSEY/KYLEE Unavailable [address] + [place] [address] UE Unavailable Unavailable Unavailable MYA, ALEKSEY/KYLEE Unavailable [address] + [place] [address] [place] Unavailable [address] + [place] [address] MYA, ALEKSEY/KYLEE Unavailable [address] + [place] [address] [place] Unavailable [address] + [place] [address] MYA, ALEKSEY/KYLEE Unavailable [address] + [place] [address] [place] Unavailable [address] + [place] [address] MYA, ALEKSEY/KYLEE Unavailable [address] + [place] [address] [place] Unavailable [address] + [place] [address] MYA, ALEKSEY/KYLEE Unavailable [address] + [place] [address] [place] Unavailable [address] + [place] [address] MYA, ALEKSEY/KYLEE Unavailable [address] + [place] [address] [place] Unavailable [address] + [email or web address] [address] MYA, ALEKSEY/KYLEE Unavailable [address] + [place] [address] UE Unavailable Unavailable Unavailable MYA, ALEKSEY/KYLEE Unavailable [address] + [place] [address] UE Unavailable Unavailable Unavailable MYA, KYLEE Unavailable Unavailable + MYA, ALEKSEY/KYLEE Unavailable [address] + [place] [address] UE Unavailable Unavailable Unavailable MYA, ALEKSEY/KYLEE Unavailable [address] + [place] [address] UE Unavailable Unavailable Unavailable MYA, ALEKSEY/KYLEE Unavailable [address] + [place] [address] UE Unavailable Unavailable Unavailable MYA, ALEKSEY/KYLEE Unavailable [address] + [place] [address] UE Unavailable Unavailable Unavailable MYA, ALEKSEY/KYLEE Unavailable [address] + [place] [address] UE Unavailable Unavailable Unavailable MYA, KYLEE Unavailable Unavailable + MYA, KYLEE Unavailable Unavailable + MYA, KYLEE Unavailable Unavailable + MYA, ALEKSEY/KYLEE Unavailable [address] + [place] [address] UE Unavailable Unavailable Unavailable MYA, ALEKSEY/KYLEE Unavailable [address] + [place] [address] UE Unavailable Unavailable Unavailable MYA, ALEKSEY/KYLEE Unavailable [address] + [place] [address] UE Unavailable Unavailable Unavailable MYA, ALEKSEY/KYLEE Unavailable [address] + [place] [address] UE Unavailable Unavailable Unavailable MYA, ALEKSEY/KYLEE Unavailable [address] + [place] [address] UE Unavailable Unavailable Unavailable Care Team Providers Name Role Phone Cecil-Bishop, Jameson Primary Care Unavailable Jovanni Whipple Attending Unavailable Cecil-Bishop, Jameson Primary Care Unavailable Radha Aaron Attending Unavailable Cecil-Bishop, Jameson Primary Care Unavailable Meghan Martínez Attending Unavailable Cecil-Bishop, Jameson Primary Care Unavailable Derek Epps Attending Unavailable Javier, Jameson Primary Care Unavailable Michael Hawk Attending Unavailable Meghan Martínez Attending Unavailable Meghan Martínez Referring Unavailable Cecil-Bishop, Jameson Primary Care Unavailable Javier, Jameson Primary Care Unavailable Derek Epps Attending Unavailable Cecil-Bishop, Jameson Primary Care Unavailable Derek Epps Attending Unavailable Derek Epps Referring Unavailable Javier, Jameson Primary Care Unavailable Baylee Mo Attending Unavailable Javier, Jameson Primary Care Unavailable Edil Zhang Attending Unavailable Rodger Brasher Attending Unavailable Cecil-Bishop, Jameson Referring Unavailable Cecil-Bishop, Jameson Primary Care Unavailable Javier, Jameson Primary Care Unavailable Jovanni Avila Attending Unavailable Javier, Jameson Primary Care Unavailable Dominique Ricci Attending Unavailable Javier, Jameson Primary Care Unavailable Meghan Martínez Attending Unavailable Cecil-Bishop, Jameson Primary Care Unavailable Rodger Rock Attending Unavailable Javier, Jameson Primary Care Unavailable Meghan Martínez Attending Unavailable Cecil-Bishop, Jameson Primary Care Unavailable Dominique Ricci Attending Unavailable Cecil-Bishop, Jameson Primary Care Unavailable Meghan Martínez Attending Unavailable Javier, Jameson Primary Care Unavailable Tyrell Michaels Attending Unavailable Javier, Jameson Primary Care Unavailable Jovanni Avila Attending Unavailable JAVIER, JAMESON J Attending Unavailable DELMAR MENARD (LAURA) Attending Unavailable JAVIER, JAMESON J Referring Unavailable JAVIER, JAMESON J Referring Unavailable SCOTTY, JAYRAM Referring Unavailable DELMAR MENARD (LAURA) Attending Unavailable SCOTTY, JAYRAM Referring Unavailable JANN KOENIG Attending Unavailable SCOTTY, JAYRAM Referring Unavailable SCOTTY, JAYRAM Attending Unavailable JAVIER, JAMESON J Referring Unavailable Blair ALEXANDER (PA-C) Attending Unavailable FARTUN ROCHA Attending Unavailable Blair ALEXANDER (PA-C) Referring Unavailable Blair ALEXANDER (PA-C) Attending Unavailable JAVIER, JAMESON Whittaker Attending Unavailable JAVIER, JAMESON J Attending Unavailable YAQUELIN WEISS ([facility]) Attending Unavailable Blair ALEXANDER (PA-C) Attending Unavailable DELMAR MENARD (PA) Referring Unavailable DELMAR MENARD (PA) Referring Unavailable DELMAR MENARD (PA) Referring Unavailable DELMAR MENARD (PA) Attending Unavailable DELMAR MENARD (PA) Referring Unavailable SCOTTY, JAYRAM Admitting Unavailable SCOTTY, JAYRAM Attending Unavailable SCOTTY, JAYRAM Referring Unavailable SCOTTY, JAYRAM Referring Unavailable SCOTTY, JAYRAM Referring Unavailable SCOTTY, JAYRAM Referring Unavailable SCOTTY, JAYRAM Referring Unavailable SCOTTY, JAYRAM Attending Unavailable JAMESON HERRERA Referring Unavailable LYLY ALCANTAR Attending Unavailable JAMESON HERRERA MD Primary Care Unavailable HALI CHOPRA Attending Unavailable SCOTTY, JAYRAM Attending Unavailable Jameson Herrera MD Referring Unavailable Jameson Herrera MD [facility] Care Unavailable SCOTTY, JAYRAM Admitting Unavailable SCOTTY, JAYRAM Attending Unavailable Jameson Herrera MD [facility] Care Unavailable SCOTTY, JAYRAM Referring Unavailable SCOTTY, JAYRAM Referring Unavailable Jameson Herrera MD Primary Care Unavailable SCOTTY, JAYRAM Referring Unavailable Jameson Herrera MD Primary Care Unavailable SCOTTY, JAYRAM Referring Unavailable Jameson Herrera MD Primary Care Unavailable SCOTTY, JAYRAM Referring Unavailable Jameson Herrera MD Primary Care Unavailable Dr. Hali Chopra Admitting Unavailable Dr. Hali Chopra Attending Unavailable PROBLEMS PROBLEMS DATE TYPE CONDITION / CODE ATTENDING STATUS SOURCE 03/19/2018 Active Malignant neoplasm NA Active [facility] of right kidney, Clinic Main except renal pelvis [facility] / C64.1(ICD-10) Repository 09/11/2018 Unknown K04.7 - Periapical Michaels, Tyrell Active [facility] abscess without Community sinus / Hospital K04.7(ICD-10) Repository 08/26/2018 Unknown G56.00 - Carpal Ungur, Remus Active [facility] tunnel syndrome, Community unspecified upper Hospital limb / Repository G56.00(ICD-10) 07/14/2018 Unknown R07.89 - Other Pranav, Rodger Active [facility] chest pain / Community R07.89(ICD-10) Hospital Repository 06/23/2018 Unknown S20.229A - Ungur, Remus Active [facility] Contusion of Community unspecified back Hospital wall of thorax, Repository initial encounter / S20.229A(ICD-10) 06/02/2018 Admitting Encounter for HALI CHOPRA Active [facility] diagnosis general adult SHE Repository medical examination without abnormal findings / Z00.00(ICD-10) 05/20/2018 Unknown K46.9 - Unspecified LeEdil Active [facility] abdominal hernia Community without obstruction Hospital or gangrene / Repository K46.9(ICD-10) 05/10/2018 Unknown R52 - Pain, Jwayyed, Active [facility] unspecified / [place] Community R52(ICD-10) Hospital Repository 05/14/2018 Unknown Z53.21 - Procedure Meghan Martínez Active [facility] and treatment not Community carried out due to Hospital patient leaving Repository prior to being seen by health care provider / Z53.21(ICD-10) 03/11/2018 Active Other specified SCOTTY, Active [facility] disorders of kidney [facility] Other and ureter / [facility] N28.89(ICD-10) Repository 03/09/2018 Active Morbid (severe) SCOTTY, Active [facility] obesity due to [facility] Other excess calories / [facility] E66.01(ICD-10) Repository 03/11/2018 Admitting Unknown / SCOTTY, Active [facility] diagnosis UNK(Unknown) [facility] Repository 03/05/2018 Active Encounter for other NA Active [facility] preprocedural Clinic Other examination / [facility] Z01.818(ICD-10) Repository 02/16/2018 Active Cellulitis, NA Active [facility] unspecified / Clinic Main L03.90(ICD-10) [facility] Repository 02/16/2018 Active Encounter for NA Active [facility] screening for Clinic Main lipoid disorders / [facility] Z13.220(ICD-10) Repository 02/08/2018 Unknown S39.012A - Strain Meghan Martínez Active [facility] of muscle, fascia Community and tendon of lower Hospital back, initial Repository encounter / S39.012A(ICD-10) 01/20/2018 Active Unknown / DELMAR MENARD Active [facility] UNK(Unknown) (PA) Clinic Main [facility] Repository PROCEDURES PROCEDURES No Procedure Records FoundRESULTS RESULTS EMERGENCY DEPARTMENT Observed: 11/03/2018 Status: F Source: [place] SUMMARY 12:19 AM [facility] REPOSITORY [facility] Medical Records Department [address] [place] [address] Emergency Department Summary 11/02/18 2105 MR#: [id number] Acct: [id number] Name: JORGE ROQUE Rep #: [id number] : 1975 43 From: Jovanni Whipple MD [...] 1. Depression This note was generated with Vascular Therapiesation software. It may contain incorrect words, spelling, [...] your Primary Care Provider. Call [facility] ([phone]) or report to the closest Emergency Room. Call 911 if necessary. 11/03/18 0019 <Electronically signed by Jovanni Whipple MD> Date Jovanni Whipple MD Cosigner Signature (If Indicated): Date CC: Jameson Herrera MD EMERGENCY DEPARTMENT Observed: 10/15/2018 Status: F Source: [place] SUMMARY 11:34 PM [facility] REPOSITORY [facility] Medical Records Department [address] [place] [address] Emergency Department Summary 10/15/18 2212 MR#: [id number] Acct: [id number] Name: JORGE ROQUE Rep #: [id number] : 1975 43 From: Jovanni Avila MD [...] rib contusion This note was generated with ShoutWire dictation software. It may contain incorrect words, [...] your Primary Care Provider. Call [facility] ([phone]) or report to the closest Emergency Room. Call 911 if necessary. 10/15/18 1706 <Electronically signed by Jovanni Avila MD> Date Jovanni Avila MD Cosigner Signature (If Indicated): Date CC: Jameson ELDER BERNY MIN 4V Observed: 10/15/2018 Status: F Source: [place] W/PA CHEST 10:09 PM [facility] REPOSITORY [facility] Imaging Services [address] [place] [address] Ribs Berny Min 4V w/PA Chest MR#: [id number] Acct: [id number] Name: JORGE ROQUE Rep #: [id number] : 1975 M 43 From: Guillermo Gross MD PCP: Jameson Herrera MD Status: REG ER Study: Ribs Berny Min 4V w/PA Chest Date of Exam: 10/15/18 Exam# [id number] Ordering Dr: Jovanni Avila MD STUDY: X-RAY [...] CC: Jovanni Avila MD; Jameson Herrera MD Bobbin Presser: Signed PELVIS 1 OR 2 VIEWS Observed: 10/15/2018 Status: F Source: JESUS 10:09 PM [facility] REPOSITORY [facility] Imaging Services [address] [place] [address] Pelvis 1 or 2 Views MR#: [id number] Acct: [id number] Name: JORGE ROQUE Rep #: [id number] : 1975 M 43 From: Theresa Fontenot MD PCP: Jameson Herrera MD Status: DEP ER Study: Pelvis 1 or 2 Views Date of Exam: 10/15/18 Exam# [id number] Ordering Dr: Jovanni Avila MD STUDY: X-RAY [...] radiographic evidence of acute fracture. Electronically Signed: Theresa Fontenot MD at 23:20 EST , Service support , CC: Jovanni Avila MD; Jameson Herrera MD Bobbin Presser: Signed PROGRESS Observed: 10/15/2018 Status: COMPLETED Source: [place] 4:27 PM [facility] REPOSITORY HNO ID: [id number] Author: Delmar Menard (Pa) Service: (none) Author Type: Physician Green Material Value Added Assessor Type: Progress Notes Filed: 10/15/2018 4:49 PM [...] Recommended seeing General Surgery at [facility] for his possible hernia repair > 6 month appointment wLUPE Russo MT, PA-C, with CT Abdomen, CXR and BMP prior to visit LUPE Cruz MT, PA-C CNOV Observed: 10/15/2018 Status: COMPLETED Source: [place] 3:30 PM [facility] REPOSITORY Office Visit (UROLWS) JORGE ROQUE ([id number]) 1975 M Date Time Provider Department 10/15/18 [...] Recommended seeing General Surgery at [facility] for his possible hernia repair > 6 month appointment LUPE Lovell MT, PA-C, with CT Abdomen, CXR and BMP prior to visit LUPE Cruz, MT, CLAUDIOC Referring Provider: DELMAR MENARD (LAURA) [[id number]] Allergies As of Date: 10/15/2018 Noted Allergy [...] (HCC) [C64.1] Order(s):CREATININE BLD [SQCRET] Order #: [id number] FUTURE XR CHEST 2V FRONTAL/LAT [[id number]] Order #: [id number] FUTURE CT KIDNEY WO/W IVCON [[id number]] Order #: [id number] FUTURE iv contrast (will be provided with [...] 10/15/18 PROGRESS Observed: 10/12/2018 Status: COMPLETED Source: [place] 12:32 PM [facility] REPOSITORY O ID: [id number] Author: Carrie Molina Ct Service: (none) Author [...] KIDNEY WO/W Observed: 10/12/2018 Status: F Source: [place] IVCON 11:10 AM [facility] REPOSITORY * * *Final Report* * * DATE OF EXAM: Oct 12 2018 11:10AM [facility] 0546 - CT KIDNEY WO/W IVCON / [...] right nephrectomy. No new mass or lymphadenopathy. Bobbin Presser: ARNIE Transcribe Date/Time: Oct 12 2018 12:33P Dictated by : SHERRILL COSME MD This examination was interpreted and the report reviewed and electronically signed by: SHERRILL COSME MD on Oct 12 2018 12:52PM EST [id number] XR CHEST 2V FRONTAL/LAT Observed: 09/23/2018 Status: F Source: [place] 2:27 PM [facility] REPOSITORY * * *Final Report* [...] cardiomediastinal silhouette. IMPRESSION: No acute radiographic abnormality. Bobbin Presser: PSCB Transcribe Date/Time: Sep 23 2018 3:15P Dictated by : DANIELLE FARIAS MD This examination was interpreted and the report reviewed and electronically signed by: DANIELLE FARIAS MD on Sep 23 2018 3:17PM EST [id number] PROGRESS Observed: 09/23/2018 Status: COMPLETED Source: [place] 2:20 PM [facility] REPOSITORY HNO ID: [id number] Author: Swati Loomis Service: (none) Author Type: [...] METABOLIC PANL Collected: 09/23/2018 Status: F Source: [place] 2:12 PM [facility] REPOSITORY TYPE CODE TESTS RESULT OUT OF REFERENCE UNITS RANGE LAB GLU 74-99 mg/dL Glucose 84 Result Comment: The [place] Diabetes Association (ADA) provides guidance for cutoff [...] Standards of Medical Care in Diabetes 2016, [place] [employer] Association. Diabetes Care. 2016.39(Suppl 1). LAB [...] actual GFR. Performed By: #### BMP #### [facility] [address] [place], [place] [address] PROGRESS Observed: 09/15/2018 Status: COMPLETED Source: [place] 3:26 PM [facility] REPOSITORY O ID: [id number] Author: Blair Steiner (Nahum) Benjamin Service: (none) Author Type: Physician Green Material Value Added Assessor Type: Progress Notes Filed: 09/15/2018 3:49 PM [...] 50 mg tablet Disp: Rfl: COMPOUNDED PRESCRIPTION JVFBSWR70.03 Bilateral carpal tunnel syndrome (primary encounter diagnosis) [...] day and night including work: slip written. [place] B6: discussed side effects and administration. Advised patient frequent ED visits for pain medication is not effective strategy. Narcotics not appropriate for this condition. Urged to wear splints. - PYRIDOXINE (VITAMIN B6) 100 MG TABLET NAHUM Garcia Observed: 09/15/2018 Status: COMPLETED Source: [place] 3:00 PM [facility] REPOSITORY Office Visit (FAMPWS) JORGE ROQUE ([id number]) 1975 M Date Time Provider Department 09/15/18 [...] 50 mg tablet Disp: Rfl: COMPOUNDED PRESCRIPTION KDZJVAN43.03 Bilateral carpal tunnel syndrome (primary encounter diagnosis) [...] day and night including work: slip written. [place] B6: discussed side effects and administration. Advised [...] may be recommended. -For work at a [employer], be sure, desk, keyboard and chair are [...] discontinue is not on file. Letter Text [facility] [address] [place], [place] [address] Jorge Roque [address] [place] [address] Clinic #: [id number] 09/15/2018 To Whom it may concern, Jorge [...] EMERGENCY DEPARTMENT Observed: 09/10/2018 Status: F Source: [place] SUMMARY 1:06 PM [facility] REPOSITORY [facility] Medical Records Department [address] [place] [address] Emergency Department Summary 09/10/18 Zohreh MR#: [id number] Acct: [id number] Name: JORGE ROQUE Rep #: [id number] : 1975 43 From: Tyrell Michaels MD [...] a ride he was prescribed Naprosyn and Clayton. Treatment Plan: Keep appointment with dentist Disposition: Discharged to home with mother Impression: Dental pain secondary to dental abscess left lower molar This note was generated with ShoutWire dictation software. It may contain incorrect words, spelling, and punctuation that were not noted in review of the chart prior to signing ED Disposition - Plan for ED Patient: Disposition: Home or Assisted Living Chief Complaint: Dental Instructions: Dental Abscess Prescriptions: Hydrocodone Bitart/Apap 5-325 [Clayton 5MG-325MG] 1 tablet PO Q6H PRN PRN 3 Days #10 tablet PRN Reason: Pain Naproxen [Naprosyn] 500 mg PO BID #14 tablet Referrals: Jameson Herrera MD [Primary Care Provider] - Additional Instructions: Your prescription for Naprosyn and Clayton were electronically transmitted to [facility], your designated pharmacy. What to do if you have Problems For any increased pain, shortness of breath, bleeding, nausea or vomiting, chest pain, or any unexpected problems, contact your Primary Care Provider. Call [facility] ([phone]) or report to the closest Emergency Room. Call 911 if necessary. 09/10/18 1306 <Electronically signed by Tyrell Michaels MD> Date Tyrell Michaels MD Cosigner Signature (If Indicated): Date CC: Jameson Herrera MD EMERGENCY DEPARTMENT Observed: 09/06/2018 Status: F Source: [place] SUMMARY 11:38 PM [facility] REPOSITORY [facility] Medical Records Department [address] [place] [address] Emergency Department Summary 09/06/18 1848 MR#: [id number] Acct: [id number] Name: JORGE ROQUE Rep #: [id number] : 1975 43 From: Meghan Martínez MD [...] Impression: Odontalgia This note was generated with ShoutWire dictation software. It may contain incorrect words, [...] your Primary Care Provider. Call [facility] ([phone]) or report to the closest Emergency Room. Call 911 if necessary. 09/06/18 2338 <Electronically signed by Meghan Martínez MD> Date Meghan Martínez MD Cosigner Signature (If Indicated): Date CC: Jameson Herrera MD DISCHARGE INSTRUCTION Observed: 09/06/2018 Status: F Source: [place] 6:50 PM [facility] REPOSITORY [facility] Medical Records Department [address] [place] [address] Discharge Instruction 09/06/18 1849 MR#: [id number] Acct: [id number] Name: JORGE ROQUE Rep #: [id number] : 1975 43 From: Meghan Martínez MD [...] your Primary Care Provider. Call [facility] ([phone]) or report to the closest Emergency Room. Call 911 if necessary. 09/06/18 1850 <Electronically signed by Meghan Martínez MD> Date Meghan Martínez MD Cosigner Signature (If Indicated): Date CC: Jameson Herrera MD PROGRESS Observed: 09/03/2018 Status: COMPLETED Source: [place] 2:33 PM [facility] REPOSITORY O ID: [id number] Author: Yaquelin Aragon) Isela Service: (none) Author Type: Nurse Practitioner [...] Tramadol MEDICATIONS Current Outpatient Prescriptions: COMPOUNDED PRESCRIPTION BABQDAN62.03 Bilateral carpal tunnel syndrome (primary encounter diagnosis) [...] PAIN MGT ANESTHESIA - Encouraged to contact [facility] to see if EMG can be done [...] scheduled or as needed for worsening/no improvement. LOTUS Jose Observed: 09/03/2018 Status: COMPLETED Source: [place] 2:00 PM [facility] REPOSITORY Office Visit (FAMPWS) JORGE ROQUE ([id number]) 1975 M Date Time Provider Department 09/03/18 2:00 PM YAQUELIN WEISS ([facility]) FAMPWS During your visit today, we recorded the following information about you: Temperature Pulse Respiration Blood pressure 98.5 degrees 72/minute 14/minute 130/78 Weight 174.6 kg Yaquelin Weiss APRN.CNP 09/03/2018 4:16 PM Signed This is a [...] abuse (HCC) see below - Substance abuse ([facility]) cocaine and cannabis per counseling center notes, seeing counseling center PAST SURGICAL HISTORY Procedure Laterality Date - PAST SURGICAL HISTORY OF 03/09/2018 part of right kidney removed - REPAIR UMBILICAL IONA,5+Y/O,REDUC 3-7-13 ALLERGIES Hydrocortisone; Tramadol MEDICATIONS Current Outpatient Prescriptions: COMPOUNDED PRESCRIPTION ITVNQAR21.03 Bilateral carpal tunnel syndrome (primary encounter diagnosis) [...] PAIN MGT ANESTHESIA - Encouraged to contact [facility] to see if EMG can be done [...] as needed for worsening/no improvement. Yaquelin Weiss APRN.STEEL POURER HELPER Referring Provider: SELF [200] Allergies As of Date: 09/03/2018 Noted Allergy Reaction HYDROCORTISONE 04/22/2018 2 - Rash Comments: topical Can take prednisone TRAMADOL 04/22/2018 8 - GI Upset Date Reviewed: 09/03/2018 Reviewed by: Kelly De Guzman Reed Man - Fully Assessed Reason for Visit: ED [...] TO PAIN MGT ANESTHESIA [20000222] Order #: [id number]: 1 Prescriptions as of 09/03/2018 Sig: COMPOUNDED [...] History Recorded Letter Text Yaquelin Weiss CNP [address] [place], [place] [address] 09/03/2018 TO WHOM IT MAY CONCERN: This is to confirm that Jorge Roque had an appointment and was seen at the [facility] in the Department of Family Medicine by Yaquelin Weiss CNPon 09/03/2018. Please excuse him from work on 09/01/18 - 09/04/18 for medical reasons. Sincerely yours, Yaquelin Weiss CNP Encounter Status:Closed by YAQUELIN WEISS CNP on 09/03/18 DISCHARGE INSTRUCTION Observed: 08/26/2018 Status: F Source: [place] 9:11 PM [facility] Medical Records Department [address] [place] [address] Discharge Instruction 08/26/182108 MR#: [id number] Acct: [id number] Name: MYAJORGE LI Remedios Rep #: [id number] : 1975 43 From: Dominique Ricci DO PCP: Jameson Herrera MD Status: REG ER ED Disposition - Plan for ED Patient: Chief Complaint: Upper Extremity Injury Instructions: ED Carpal Tunnel Prescriptions: Hydrocodone Bitart/Apap 5-325 [Clayton 5MG-325MG] 1 tab PO Q6H PRN PRN 5 Days #20 tab PRN Reason: Pain Referrals: Jameson Herrera MD [Primary Care Provider] - Fantasma Dennison MD [STAFF PHYSICIAN] - 3-5 Days What to do if you have Problems For any increased pain, shortness of breath, bleeding, nausea or vomiting, chest pain, or any unexpected problems, contact your Primary Care Provider. Call [facility] ([phone]) or report to the closest Emergency Room. Call 911 if necessary. 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 Cranial nerves II through XII grossly [...] Department Course and Treatment: [Patient was given Clayton for pain] Treatment Plan: [Clayton for pain and advised to follow-up with orthopedics] Disposition: [Discharged home in stable condition] Impression: [Bilateral hand pain and paresthesias-etiology uncertain] This note was generated with ShoutWire dictation software. It may contain incorrect words, [...] your Primary Care Provider. Call [facility] ([phone]) or report to the closest Emergency Room. Call 911 if necessary. 08/26/182108 <Electronically signed by Dominique Ricci DO> Date Dominique Ricci DO Cosigner Signature (If Indicated): Date CC: Jameson Herrera MD ED NOTE Observed: 08/17/2018 Status: COMPLETED Source: [place] 7:29 PM [facility] [place] REPOSITORY HNO ID: [id number] Author: Sandra (Rn) ANA LAURA Guan Service: [...] PROV NOTE Observed: 08/17/2018 Status: COMPLETED Source: [place] 7:19 PM [facility] [place] REPOSITORY HNO ID: [id number] Author: Ke Stroud MD Service: Emergency Medicine [...] the palmar side. 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 He does not work with vibratory tools. [...] his physician. SIGNATURE: MD Ke Bautista MD 08/17/18 192 ED NOTE Observed: 08/17/2018 Status: COMPLETED Source: [place] 7:07 PM [facility] REPOSITORY O ID: [id number] Author: Sandra (Rn) ANA LAURA Guan Service: Emergency Medicine Author Type: Registered Nurse Type: ED Notes Filed: 08/17/2018 7:08 PM Note Text: Patient states he woke up with bilateral hand numbness and pain.patient states left side does goes up to his elbow. Patient denies any know injury. Patient alert and oriented ambulates to room 10 EMERGENCY DEPARTMENT Observed: 08/08/2018 Status: F Source: [place] SUMMARY 1:06 AM [facility] REPOSITORY [facility] Medical Records Department [address] [place] [address] Emergency Department Summary 08/07/181999 MR#: [id number] Acct: [id number] Name: JORGE ROQUE Rep #: [id number] : 1975 43 From: Meghan Martínez MD [...] to be following up with surgery at [facility]. Treatment Plan: [] Disposition: Discharge Impression: Epigastric pain This note was generated with ShoutWire dictation software. It may contain incorrect words, [...] your Primary Care Provider. Call [facility] ([phone]) or report to the closest Emergency Room. Call 911 if necessary. 08/08/18 0106 <Electronically signed by Meghan Martínez MD> Date Meghan Martínez MD Cosigner Signature (If Indicated): Date CC: Jameson Herrera MD DISCHARGE INSTRUCTION Observed: 08/07/2018 Status: F Source: [place] 8:03 PM [facility] REPOSITORY [facility] Medical Records Department [address] [place] [address] [place] [address] Discharge Instruction 08/07/181999 MR#: [id number] Acct: [id number] Name: JORGE ROQUE Rep #: [id number] : 1975 43 From: Meghan Martínez MD [...] your Primary Care Provider. Call [facility] ([phone]) or report to the closest Emergency Room. Call 911 if necessary. 08/07/182002 <Electronically signed by Meghan Martínez MD> Date Meghan Martínez MD Cosigner Signature (If Indicated): Date CC: Jameson Herrera MD CBC W/DIFF, AUTOMATED Collected: 08/07/2018 Status: F Source: [place] 6:40 PM [facility] REPOSITORY TYPE CODE TESTS RESULT OUT OF [...] Lymph 1.27 Performed By: #### L100.0100 #### [facility] [address] [place], [address] BASIC METABOLIC Collected: 08/07/2018 Status: F Source: [place] PROFILE (BMP) 6:40 PM [facility] REPOSITORY TYPE CODE TESTS RESULT OUT OF [...] Performed By: #### L500.2500, L500.3400, L501.2450 #### [facility] [address] [place], [address] LIVER PROFILE Collected: 08/07/2018 Status: F Source: [place] 6:40 PM [facility] REPOSITORY TYPE CODE TESTS RESULT OUT OF [...] Performed By: #### L500.2500, L500.3400, L501.2450 #### [facility] [address] [place] [place], [address] LIPASE Collected: 08/07/2018 Status: F Source: [place] 6:40 PM [facility] REPOSITORY TYPE CODE TESTS RESULT OUT OF RANGE REFERENCE UNITS LAB L501.2450 73-393 U/L Normal LIPASE 74 Performed By: #### L500.2500, L500.3400, L501.2450 #### [facility] [address] [place], [address] EMERGENCY DEPARTMENT Observed: 07/14/2018 Status: F Source: [place] SUMMARY 11:25 PM [facility] REPOSITORY [facility] Medical Records Department [address] [place] [address] Emergency Department Summary 07/14/18 1626 MR#: [id number] Acct: [id number] Name: JORGE ROQUE Rep #: [id number] : 1975 43 From: Rodger Rock MD [...] a mechanical fall. He was treated with Clayton while awaiting imaging. His imaging was unremarkable. [...] wall pain This note was generated with ShoutWire dictation software. It may contain incorrect words, [...] problems, contact your Primary Care Provider. Call [email or web address] Registry ([phone]) or report to the closest Emergency Room. Call 911 if necessary. 07/14/18 6396 <Electronically signed by Rodger Rock MD> Date Rodger Rock MD Cosigner Signature (If Indicated): Date CC: Jameson Herrera MD DISCHARGE INSTRUCTION Observed: 07/14/2018 Status: F Source: [place] 11:25 PM [facility] REPOSITORY [facility] Medical Records Department [address] [place] [address] Discharge Instruction 07/14/18 1629 MR#: [id number] Acct: [id number] Name: JORGE ROQUE Rep #: [id number] : 1975 43 From: Rodger Rock MD PCP: Jameson Herrera MD Status: [facility] ER ED Disposition - Plan for ED Patient: Chief Complaint: Abd Pain Instructions: ED Strain Chest Wall Prescriptions: Hydrocodone Bitart/Apap 5-325 [Clayton 5MG-325MG] 1 tab PO Q6H PRN PRN 3 Days #12 tab PRN Reason: Pain Referrals: Jameson Herrera MD [Primary Care Provider] - What to do if you have Problems For any increased pain, shortness of breath, bleeding, nausea or vomiting, chest pain, or any unexpected problems, contact your Primary Care Provider. Call [facility] ([phone]) or report to the closest Emergency Room. Call 911 if necessary. 07/14/18 2325 <Electronically signed by Rodger Rock MD> Date Rodger Rock MD Cosigner Signature (If Indicated): Date CC: Jameson Herrera MD RIBS UNI MIN 3V Observed: 07/14/2018 Status: F Source: [place] W/PA CHEST 3:26 PM [facility] REPOSITORY [facility] Imaging Services [address] [place] [address] Ribs Uni Min 3V w/PA Chest MR#: [id number] Acct: [id number] Name: JORGE ROQUE Rep #: [id number] : 1975 M 43 From: Chencho Templeton MD PCP: Jameson Herrera MD Status: [facility] ER Study: Ribs Uni Min 3V w/PA Chest Date of Exam: 07/14/18 Exam# [id number] Ordering Dr: Rodger Rock MD STUDY: X-RAY [...] Chencho Templeton MD at 16:00 EDT Tel [phone], Service support , CC: Rodger Rock MD; Jameson Herrera MD Bobbin Presser: Signed PROGRESS Observed: 07/13/2018 Status: COMPLETED Source: [place] 2:37 PM [facility] [place] REPOSITORY [facility] ID: [id number] Author: Jameson Herrera Service: (none) Author Type: [...] . CNOV Observed: 07/13/2018 Status: COMPLETED Source: [place] 2:00 PM [facility] REPOSITORY [facility] JORGE ROQUE ([id number]) 1975 M Date Time Provider Department 07/13/18 2:00 PM [facility] During your visit today, we recorded the [...] Order(s):CONSULT TO GENERAL SURGERY [9011] Order #: [id number]: 1 EMG(NEURO/NI) [1688916] Order #: [id number]: 1 FUTURE predniSONE (DELTASONE) 20 mg tabletTake 1 tablet by mouth once daily for 5 days. Take daily with food.Disp: 5 tabletRfl: 0 COCK-UP WRIST SPLINT [13388155] Order #: [id number]: 2 Prescriptions as of 07/13/2018 Sig: LISINOPRIL [...] Recorded Letter Text Jameson Herrera MD [address] [place], [place] [address] 07/13/2018 Jorge Roque [address] [place], [place] [address] TO WHOM IT MAY CONCERN: This is to certify that Mr. Jorge Raeaway has been under my care for illness and was seen and unable to work on 07/13/18 Sincerely yours, Jameson Herrera MD Encounter Status:Closed by JAMESON HERRERA MD on 07/13/18 EMERGENCY DEPARTMENT Observed: 07/07/2018 Status: F Source: [place] SUMMARY 12:27 AM [facility] Medical Records Department [address] [place], [place] [address] Emergency Department Summary 07/06/18 1516 MR#: [id number] Acct: [id number] Name: MYAJORGE Whittaker Rep #: [id number] : 1975 43 From: Meghan Martínez MD [...] wall hernia This note was generated with ShoutWire dictation software. It may contain incorrect words, [...] your Primary Care Provider. Call [facility] ([phone]) or report to the closest Emergency Room. Call 911 if necessary. 07/07/18 0027 <Electronically signed by Meghan Martínez MD> Date Meghan Martínez MD Cosigner Signature (If Indicated): Date CC: Jameson Herrera MD DISCHARGE INSTRUCTION Observed: 07/06/2018 Status: F Source: [place] 5:33 PM [facility] REPOSITORY [facility] Medical Records Department [address] [place] [address] Discharge Instruction 07/06/18 173 MR#: [id number] Acct: [id number] Name: JORGE ROQUE Rep #: [id number] : 1975 43 From: Meghan Martínez MD [...] your Primary Care Provider. Call [facility] ([phone]) or report to the closest Emergency Room. Call 911 if necessary. 07/06/181732 <Electronically signed by Meghan Martínez MD> Date Meghan Martínez MD Cosigner Signature (If Indicated): Date CC: Jameson Herrera MD URINALYSIS, COMPLETE Collected: 07/06/2018 Status: F Source: [place] 4:00 PM [facility] REPOSITORY Order Comment: Has pt arrived? Y [...] URINE SEEN Performed By: #### L400.0001 #### [facility] [address] [place], [place], [address] CBC W/DIFF, AUTOMATED Collected: 07/06/2018 Status: F Source: [place] 3:30 PM [facility] REPOSITORY TYPE CODE TESTS RESULT OUT OF [...] Lymph 1.50 Performed By: #### L100.0100 #### [facility] [address] [place], [place], [address] BASIC METABOLIC Collected: 07/06/2018 Status: F Source: [place] PROFILE (BMP) 3:30 PM [facility] REPOSITORY TYPE CODE TESTS RESULT OUT OF [...] GAP Performed By: #### L500.2500, L500.3400 #### [facility] [address] [place], [address] LIVER PROFILE Collected: 07/06/2018 Status: F Source: [place] 3:30 PM [facility] REPOSITORY TYPE CODE TESTS RESULT OUT OF [...] 0.09 Performed By: #### L500.2500, L500.3400 #### [facility] [address] [place], [address] ABDOMEN/PELVIS WITH Observed: 07/06/2018 Status: F Source: [place] CONTRAST 3:16 PM [facility] REPOSITORY [facility] Imaging Services [address] [place] [address] Abdomen/Pelvis WITH Contrast MR#: [id number] Acct: [id number] Name: JORGE ROQUE Rep #: [id number] : 1975 M 43 From: Fantasma Spann MD PCP: Jameson Herrera MD Status: REG ER Study: Abdomen/Pelvis WITH Contrast Date of Exam: 07/06/18 Exam# [id number] Ordering Dr: Meghan Martínez MD STUDY: CT [...] Fatty liver. Stable splenomegaly. Electronically Signed: Fantasma Paulasendyboris, at 17:13 EDT Tel , Service support , CC: Meghan Martínez MD; Jameson Herrera MD Bobbin Presser: Signed PROGRESS Observed: 07/06/2018 Status: COMPLETED Source: [place] 2:24 PM [facility] REPOSITORY HNO ID: [id number] Author: Jameson Herrera Service: (none) Author Type: Physician Type: Progress Notes Filed: 07/06/2018 2:41 PM Note Text: Patient presents with: Abdominal Pain: with nausea HPI: Patient presents today for office visit for follow up. Nursing Notes: Margaret Vela JANETT 07/06/2018 1:54 PM Signed Went back to [...] MD CNOV Observed: 07/06/2018 Status: COMPLETED Source: [place] 12:40 PM [facility] REPOSITORY [facility] JORGE ROQUE ([id number]) 1975 M Date Time Provider Department 07/06/18 12:40 PM [facility] During your visit today, we recorded the [...] for follow up. Nursing Notes: Margaret Vela LPN 07/06/2018 1:54 PM Signed Went back to [...] DISCHARGE INSTRUCTION Observed: 06/23/2018 Status: F Source: [place] 7:22 PM [facility] REPOSITORY [facility] Medical Records Department [address] [place] [address] Discharge Instruction 06/23/18 1920 MR#: [id number] Acct: [id number] Name: JORGE ROQUE Rep #: [id number] : 1975 43 From: Dominique Ricci DO PCP: Jameson Herrera MD Status: REG ER ED Disposition - Plan for ED Patient: Chief Complaint: Back Instructions: ED Contusion Back, ED Mechanical Fall, ED Sprain Strain Neck Prescriptions: Hydrocodone/Acetaminophen [Clayton 5-325 Tablet] 1 - 2 ea PO [...] problems, contact your Primary Care Provider. Call [facility] Registry ([phone]) or report to the closest Emergency Room. Call 911 if necessary. 06/23/181921 <Electronically signed by Dominique Ricci DO> Date Dominique Ricci DO Cosigner Signature (If Indicated): Date CC: Jameson Herrera MD EMERGENCY DEPARTMENT Observed: 06/23/2018 Status: F Source: [place] SUMMARY 7:20 PM [facility] REPOSITORY [facility] Medical Records Department [address] [place] [address] Emergency Department Summary 06/23/181917 MR#: [id number] Acct: [id number] Name: JORGE ROQUE Remedios Rep #: [id number] : 1975 43 From: Dominique Ricci DO [...] Course and Treatment: [Patient was given 1 Clayton p.o.] Treatment Plan: [Patient given a prescription for Clayton] Disposition: [Discharged home in stable condition] Impression: [Mechanical fall Contusion back Cervical strain] This note was generated with ShoutWire dictation software. It may contain incorrect words, [...] your Primary Care Provider. Call [facility] ([phone]) or report to the closest Emergency Room. Call 911 if necessary. 06/23/18 1920 <Electronically signed by Dominique Ricci DO> Date Dominique Ricci DO Cosigner Signature (If Indicated): Date CC: Jameson Herrera MD CERV SPINE 2 OR 3 Observed: 06/23/2018 Status: F Source: [place] VIEWS 5:07 PM [facility] REPOSITORY [facility] Imaging Services [address] [place] [address] [place] [address] Cerv Spine 2 or 3 Views MR#: [id number] Acct: [id number] Name: JORGE ROQUE Rep #: [id number] : 1975 M 43 From: Weston Doherty DO PCP: Jameson Herrera MD Status: REG ER Study: Cerv Spine 2 or 3 Views Date of Exam: 06/23/18 Exam# [id number] Ordering Dr: Dominique Ricci DO STUDY: X-RAY [...] Weston Doherty DO at 18:33 EDT Tel [phone], Service support , CC: Dominique Ricci DO; Jameson Herrera MD Bobbin Presser: Signed LUMBAR SPINE 2 OR 3 Observed: 06/23/2018 Status: F Source: [place] VIEWS 5:07 PM [facility] REPOSITORY [facility] Imaging Services [address] [place] [address] Lumbar Spine 2 or 3 Views MR#: [id number] Acct: [id number] Name: JORGE ROQUE Rep #: [id number] : 1975 M 43 From: Yohannes Hutr DO PCP: Jameson Herrera MD Status: REG ER Study: Lumbar Spine 2 or 3 Views Date of Exam: 06/23/18 Exam# [id number] Ordering Dr: Dominique Ricci DO STUDY: X-RAY [...] Yohannes Hurt DO at 18:40 EDT Tel [phone], Service support , CC: Dominique Ricci DO; Jameson Herrera MD Bobbin Presser: Signed CHEST PA AND LATERAL Observed: 06/23/2018 Status: F Source: [place] 5:07 PM [facility] REPOSITORY [facility] Imaging Services [address] [place] [address] Chest PA and Lateral MR#: [id number] Acct: [id number] Name: JORGE ROQUE Rep #: [id number] : 1975 M 43 From: Kinsey Armando MD PCP: Jameson Herrera MD Status: REG ER Study: Chest PA and Lateral Date of Exam: 06/23/18 Exam# [id number] Ordering Dr: Dominique Ricci DO STUDY: X-RAY [...] CC: Dominique Ricci DO; Jameson Herrera MD Bobbin Presser: Signed EMERGENCY DEPARTMENT Observed: 06/18/2018 Status: F Source: [place] SUMMARY 8:46 PM [facility] REPOSITORY [facility] Medical Records Department [address] [place] [address] Emergency Department Summary 06/18/18 1757 MR#: [id number] Acct: [id number] Name: JORGE ROQUE Rep #: [id number] : 1975 43 From: Jovanni Avila MD [...] 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 He states over the past 3 days [...] 2. Dysuria This note was generated with ShoutWire dictation software. It may contain incorrect words, [...] problems, contact your Primary Care Provider. Call [facility] Registry ([phone]) or report to the closest Emergency Room. Call 911 if necessary. 06/18/182045 <Electronically signed by Jovanni Avila MD> Date Jovanni Avila MD Cosigner Signature (If Indicated): Date CC: Jameson Herrera MD URINALYSIS, COMPLETE Collected: 06/18/2018 Status: F Source: [place] 6:10 PM [facility] REPOSITORY Order Comment: Order Date: 06/18/18 How [...] URINE SEEN Performed By: #### L400.0001 #### [facility] [address] [place], [address] ANKLE Observed: 06/02/2018 Status: F Source: [facility] 6:54 PM [facility] REPOSITORY Final Report Accession No: [id number] Performed: Jun 02 2018 6:54PM Examination: [...] noted. Interpreting Physician: JORGE HARVEY D.O. Trans: [id number] : cc: CBC WITH DIFF Collected: 06/02/2018 Status: F Source: [facility] 6:49 PM [facility] REPOSITORY TYPE CODE TESTS RESULT OUT [...] Unless otherwise noted, all testing performed by [place] [address] [address] [place], [place] [address] CLIA: [id number] Commercial Counsel: Hali Alonzo M.D. COMPREHENSIVE METABOLIC Collected: 06/02/2018 Status: F Source: [facility] 6:49 PM [facility] REPOSITORY TYPE CODE TESTS RESULT OUT [...] with caution. LAB eGFRB ml/min/1.73sq.m eGFR, Normal -[place] >=60 Result Comment: GFR Calc LAB CALCM [...] Unless otherwise noted, all testing performed by [facility] [address] [place], [place] [address] CLIA: [id number] Commercial Counsel: Hail Alonzo M.D. URINALYSIS, ROUTINE Collected: 06/02/2018 Status: F Source: [facility] 6:45 PM [facility] REPOSITORY TYPE CODE TESTS RESULT OUT OF RANGE REFERENCE UNITS LAB COLOR Normal Color, Urine Yellow LAB CHAUR Normal Character Hazy LAB SPGRUR 1.003-1.029 Normal Specific 1.026 [place],Urine LAB PHUR 4.5-8.0 Normal pH,Urine 5.0 LAB [...] Unless otherwise noted, all testing performed by [place] [address] CLIA: [id number] Commercial Counsel: Hali Alonzo M.D. Observed: 06/02/2018 Status: F Source: [facility] CULTURE, URINE 6:45 PM [facility] REPOSITORY Test Name: Culture, Urine Culture Status: Final Culture Report: No Growth - Day 2 Micro Source: Urine Performed By: #### URCUL #### Unless otherwise noted, all testing performed by [place] [address] CLIA: [id number] Commercial Counsel: Hali Alonzo M.D. CHLAMYDIA/GC/TRICH AMP RNA Collected: Status: F Source: [facility] UR 06/02/2018 6:45 PM [facility] REPOSITORY TYPE CODE TESTS RESULT OUT OF REFERENCE UNITS RANGE LAB CHLTRNAU Negative Normal Chlamydia Negative trach, Amp RNA Ur LAB GCRNAUR Negative Normal Neisseria Negative Gonorr, Amp.RNA Ur Result Comment: Test Performed by [facility] [place] [address] LAB TRICRNAU Negative Trichomonas Abnormal vag. Amp RNA Ur POSITIVE Result Comment: Test Performed by [facility] [employer] [address] [place] [address] Performed By: #### CHLGCTRU #### Unless otherwise noted, all testing performed by [facility] [address] [place] [id number] CLIA: [id number] Commercial Counsel: Hali Alonzo M.D. PROGRESS Observed: 06/02/2018 Status: COMPLETED Source: [place] 12:23 PM [facility] REPOSITORY HNO ID: [id number] Author: Blair Steiner (Pa-C) Benjamin Service: (none) Author Type: Physician Green Material Value Added Assessor Type: Progress Notes Filed: 06/02/2018 2:39 PM [...] GC/CHLAMYDIA AMPLIF Collected: 06/02/2018 Status: F Source: [place] 12:20 PM [facility] REPOSITORY TYPE CODE TESTS RESULT OUT OF REFERENCE UNITS RANGE LAB GCCTSR GC/Chlam Amp Urine Source LAB GCAMPL GC Negative Amplification for Neisseria gonorrhoeae by amplification. LAB CLAMPL Chlamydia Negative Amplif for Chlamydia trachomatis by amplification. Performed By: #### GCCT #### [facility] [address] [place], [place] [address] Observed: 06/02/2018 Status: F Source: [place] URINE CULTURE 12:20 PM [facility] REPOSITORY Sp. Request/Comment: - Specimen received in preservative Culture Result - <10,000 CFU/ml Normal urogenital roopa Performed By: #### URCUL #### [facility] [address] [place], [place] [address] CNOV Observed: 06/02/2018 Status: COMPLETED Source: [place] 12:00 PM [facility] REPOSITORY Office Visit ([facility]) JORGE ROQUE ([id number]) 1975 M Date Time Provider Department 06/02/18 12:00 PM Blair ALEXANDER) [facility] During your visit [...] Diagnosis:Abdominal wall hernia [K43.9] Order(s):UA DIP B/O [1851670] Order #: [id number] gabapentin (NEURONTIN) 600 mg tabletTake 1 tablet by mouth three times daily for 90 days.Disp: 90 tabletRfl: 2 URINE CULTURE [SQURCUL] Order #: [id number]. #:[id number] GC/CHLAMYDIA DNA DET [SQGCCAMP] Order #: [id number]. #:[id number] Prescriptions as of 06/02/2018 Sig: HYDROXYZINE HCL [...] on file. Letter Text Toby Alexander PA-C [facility] Jorge Roque [address] [place] [address] Clinic #: [id number] 06/04/2018 Dear Mr. Roque, I have received the results of your recent tests. The results of your Urine Culture test were either normal or within the acceptable range. We can discuss this at your next visit. Please do not hesitate to contact me with any questions. Sincerely, Toby Alexander PA-C [facility] Medicine Department electronically signed to expedite mailing Encounter Status:Closed by Blair ALEXANDER PA-C on 06/02/18 SURGERY VISIT REPORT Observed: 05/30/2018 Status: F Source: [place] 9:27 AM [facility] REPOSITORY [facility] [address] [place] [address]. [address] [place] [address] OFFICE VISIT Date of Service: 05/29/18 MR#: [id number] Acct: [id number] Name: JORGE ROQUE Rep #: [id number] : 1975 Provider: Rodger Brasher MD Age/Sex: 43/M Location: [facility] Status: Signed Intake Vital Signs05/29/18 Height 5 ft 8 in 05/29/18 Weight: 390 lb Intake Visit Reasons: Hernia Nib Finisher Required: No Is patient in pain?: Yes (Right abdomen) Pain scale (1-10): 9 Allergies hydrocortisone Allergy (Verified 05/29/18 13:48) Rash tramadol Adverse Reaction (Verified 05/29/18 13:48) Nausea Medications Sertraline HCl [Zoloft] 25 mg PO DAILY 04/30/18 [History Confirmed 05/29/18] gabapentin 300 mg capsule 300 mg PO BID 05/29/18 [History Confirmed 05/29/18] [facility] Medical History History of kidney cancer (Acute) [...] partial nephrectomy on March 09, 2018 at [facility]. He was improving and then started [...] person, oriented to place, oriented to time [facility] Head: normocephalic, atraumatic Ears: external ears normal [...] He is already seen one surgeon in [facility] who does not want to do any [...] PROV NOTE Observed: 05/23/2018 Status: COMPLETED Source: [place] 3:55 PM [facility] REPOSITORY [facility] ID: [id number] Author: Leslie Turner MD Service: Emergency Medicine [...] He had a CT scan done at [facility] 3 days ago that showed that the [...] OARRS shows a 3 day rx from [facility] ED filled 2 days ago. Notes from April 30 visit at [facility] say that he is not to get [...] ED NOTE Observed: 05/23/2018 Status: COMPLETED Source: [place] 3:53 PM [facility] REPOSITORY HNO ID: [id number] Author: Anna Clancy) ANA LAURA Soares Service: Emergency Medicine Author Type: Registered Nurse Type: ED Notes Filed: 05/23/2018 3:53 PM Note Text: Patient informed: the name of medication, why we are giving it, possible side effects, what they may expect to feel, and was offered a chance to ask questions, prior to the administration of Oxycodone. ED NOTE Observed: 05/23/2018 Status: COMPLETED Source: [place] 3:21 PM [facility] REPOSITORY HNO ID: [id number] Author: Anna Clancy) ANA LAURA Soares Service: Emergency Medicine Author Type: Registered Nurse Type: ED Notes Filed: 05/23/2018 3:22 PM Note Text: Pt reports recurrent issue with hernia; was seen at [facility] 3 days ago, CT completed at that visit. Pt reports he was given pain meds to go home on for a couple of days. EMERGENCY DEPARTMENT Observed: 05/20/2018 Status: F Source: [place] SUMMARY 9:51 PM [facility] REPOSITORY [facility] Medical Records Department [address] [place] [address] Emergency Department Summary 05/20/18 1904 MR#: [id number] Acct: [id number] Name: JORGE ROQUE Rep #: [id number] : 1975 42 From: Edil Alex PCP: Jameson Herrera MD Status: REG ER ADDENDUM by Edil Zhang on 05/20/18 at 2154 OARRS Report was checked on the patient. [...] his physicians. Patient understands. Date Edil Zhang cc: Jameson Herrera MD * Signed - ER Visit Summary Date of Service: 05/20/18 Chief Complaint: Abdominal pain History of Present Illness: The patient is a 42 M 2 day history worsening right side incision no abdominal pain. Status post partial nephrectomy March 09 at [facility]. He states it was cancerous. He [...] He will follow-up with his surgeon at [facility] for reevaluation as an outpatient. All questions were answered. Treatment Plan: [] Disposition: Discharge Impression: Right abdominal fat hernia This note was generated with ShoutWire dictation software. It may contain incorrect words, [...] than 10 pounds. Call your surgeon from [facility] for outpatient follow-up and reevaluation. Take image from disc to your surgeon. What to do if you have Problems For any increased pain, shortness of breath, bleeding, nausea or vomiting, chest pain, or any unexpected problems, contact your Primary Care Provider. Call [facility] ([phone]) or report to the closest Emergency Room. Call 911 if necessary. 05/20/182142 <Electronically signed by Edil Alex> Date Edil Alex Cosigner Signature (If Indicated): Date CC: Jameson Herrera MD CBC W/DIFF, AUTOMATED Collected: 05/20/2018 Status: F Source: [place] 7:15 PM [facility] REPOSITORY TYPE CODE TESTS RESULT OUT OF [...] Lymph 1.92 Performed By: #### L100.0100 #### [facility] [address] [place], [address] COMPREHENSIVE METABOLIC Collected: 05/20/2018 Status: F Source: [facility] 7:15 PM [facility] REPOSITORY TYPE CODE TESTS RESULT OUT OF [...] 6 Performed By: #### L500.4050, L501.2450 #### [facility] [address] [place], [address] LIPASE Collected: 05/20/2018 Status: F Source: [place] 7:15 PM [facility] REPOSITORY TYPE CODE TESTS RESULT OUT OF RANGE REFERENCE UNITS LAB L501.2450 73-393 U/L Normal LIPASE 82 Performed By: #### L500.4050, L501.2450 #### [facility] [address] [place], [address] ABDOMEN/PELVIS WITH Observed: 05/20/2018 Status: F Source: [place] CONTRAST 7:02 PM [facility] REPOSITORY [facility] Imaging Services [address] [place] [address] Abdomen/Pelvis WITH Contrast MR#: [id number] Acct: [id number] Name: JORGE ROQUE Rep #: [id number] : 1975 M 42 From: Avlerto Valerio DO PCP: Jameson Herrera MD Status: REG ER Study: Abdomen/Pelvis WITH Contrast Date of Exam: 05/20/18 Exam# [id number] Ordering Dr: Edil Zhang DO STUDY: CT [...] , CC: Edil Zhang; Jameson Herrera MD Bobbin Presser: Signed EMERGENCY DEPARTMENT Observed: 05/10/2018 Status: F Source: [place] 3:24 PM [facility] REPOSITORY [facility] Medical Records Department [address] [place] [address] Emergency Department Summary 05/10/18 1318 MR#: [id number] Acct: [id number] Name: JORGE ROQUE Rep #: [id number] : 1975 42 From: Baylee Mo MD [...] is ineffective he will be given for Clayton tablets to use as rescue medicine Treatment Plan: [] Disposition: [] Home stable Impression: [] Fall with back pain This note was generated with ShoutWire dictation software. It may contain incorrect words, spelling, and punctuation that were not noted in review of the chart prior to signing ED Disposition - Plan for ED Patient: Chief Complaint: Back Referrals: Jameson Herrrea MD [Primary Care Provider] - What to do if you have Problems For any increased pain, shortness of breath, bleeding, nausea or vomiting, chest pain, or any unexpected problems, contact your Primary Care Provider. Call [facility] ([phone]) or report to the closest Emergency Room. Call 911 if necessary. 05/10/18 1524 <Electronically signed by Baylee Mo MD> Date Baylee Mo MD Cosigner Signature (If Indicated): Date CC: Jameson Herrera MD DISCHARGE INSTRUCTION Observed: 05/10/2018 Status: F Source: [place] 3:02 PM [facility] REPOSITORY [facility] Medical Records Department [address] [place] [address] Discharge Instruction 05/10/18 1500 MR#: [id number] Acct: [id number] Name: JORGE ROQUE Rep #: [id number] : 1975 42 From: Baylee Mo MD PCP: Jameson Herrera MD Status: REG ER ED Disposition - Plan for ED Patient: Chief Complaint: Back Instructions: ED Contusion Back Prescriptions: Hydrocodone Bitart/Apap 5-325 [Clayton 5MG-325MG] 1 tab PO Q4H PRN PRN 2 Days #7 tab PRN Reason: Pain Referrals: Jameson Herrera MD [Primary Care Provider] - What to do if you have Problems For any increased pain, shortness of breath, bleeding, nausea or vomiting, chest pain, or any unexpected problems, contact your Primary Care Provider. Call [facility] ([phone]) or report to the closest Emergency Room. Call 911 if necessary. 05/10/18 1502 <Electronically signed by Baylee Mo MD> Date Baylee Mo MD Cosigner Signature (If Indicated): Date CC: Jameson Herrera MD LUMBAR SPINE 2 OR 3 Observed: 05/10/2018 Status: F Source: [place] VIEWS 1:18 PM [facility] REPOSITORY [facility] Imaging Services [address] [place] [address] Lumbar Spine 2 or 3 Views MR#: [id number] Acct: [id number] Name: JORGE ROQUE Remedios Rep #: [id number] : 1975 M 42 From: Zayda Vyas MD PCP: Jameson Herrera MD Status: REG ER Study: Lumbar Spine 2 or 3 Views Date of Exam: 05/10/18 Exam# [id number] Ordering Dr: Baylee Mo MD STUDY: X-RAY [...] CC: MD Desean Mo; Jameson Herrera MD Bobbin Presser: Signed THORACIC SPINE 2 Observed: 05/10/2018 Status: F Source: [place] VIEWS 1:18 PM [facility] REPOSITORY [facility] Imaging Services [address] [place] [address] Thoracic Spine 2 Views MR#: [id number] Acct: [id number] Name: JORGE ROQUE Rep #: [id number] : 1975 M 42 From: Zayda Vyas MD PCP: Jameson Herrera MD Status: REG ER Study: Thoracic Spine 2 Views Date of Exam: 05/10/18 Exam# [id number] Ordering Dr: Baylee Mo MD STUDY: X-RAY [...] CC: MD Desean Mo; Jameson Herrera MD Bobbin Presser: Signed EMERGENCY DEPARTMENT Observed: 05/07/2018 Status: F Source: [place] SUMMARY 12:54 AM [facility] REPOSITORY [facility] Medical Records Department [address] [place] [address] Emergency Department Summary 05/06/18 2147 MR#: [id number] Acct: [id number] Name: JORGE ROQUE Rep #: [id number] : 1975 42 From: Derek Epps MD [...] Herrera and also Dr. Rocha at the [facility]. Patient states today is helping someone move [...] Course and Treatment: Patient was given 2 Clayton here for pain. On repeat exam at 2150 is doing well and is comfortable being discharged home. He needs no further workup at this time in the clinic or deciding how to handle this hernia. Treatment Plan: Discharge and follow-up with the [facility]. Disposition: Discharge Impression: Acute on chronic abdominal pain secondary to a abdominal wall hernia s/p post right partial nephrectomy This note was generated with Vascular Therapiesation software. It may contain incorrect words, spelling, [...] problems, contact your Primary Care Provider. Call [email or web address] ([phone]) or report to the closest Emergency Room. Call 911 if necessary. 05/07/18 0054 <Electronically signed by Derek Epps MD> Date Derek Epps MD Cosigner Signature (If Indicated): Date CC: Jameson Herrera MD DISCHARGE INSTRUCTION Observed: 05/07/2018 Status: F Source: [place] 12:54 AM [facility] REPOSITORY [facility] Medical Records Department [address] [place] [address] Discharge Instruction 05/06/18 2152 MR#: [id number] Acct: [id number] Name: JORGE ROQUE Rep #: [id number] : 1975 42 From: Derek Epps MD [...] your Primary Care Provider. Call [facility] ([phone]) or report to the closest Emergency Room. Call 911 if necessary. 05/07/18 0054 <Electronically signed by Derek Epps MD> Date Derek Epps MD Cosigner Signature (If Indicated): Date CC: Jamseon Herrera MD URINALYSIS, COMPLETE Collected: 05/06/2018 Status: F Source: [place] 7:58 PM [facility] REPOSITORY Order Comment: How was Urine Obtained? [...] URINE SEEN Performed By: #### L400.0001 #### [facility] [address] [place], [address] DOWNTIME REPORT Observed: 05/06/2018 Status: F Source: [place] 1:14 PM [facility] REPOSITORY [facility] Medical Records Department [address] [place] [address] Downtime Report MR#: [id number] Acct: [id number] Name: MYAJORGE Rep #: [id number] : 1975 42 From: Beltran Fontenot MD PCP: Jameson Herrera MD Status: DEP ER This patient was seen during an EMR downtime April 20, 2018 - April 27, 2018. This patient may have a combination of paper and electronic documentation or all paper documentation. All documentation is viewable within the e-chart portion of [employer] for each patient visit. EMERGENCY DEPARTMENT Observed: 05/01/2018 Status: F Source: [place] SUMMARY 12:44 AM [facility] Medical Records Department [address] [place] [address] Emergency Department Summary 04/30/18 1739 MR#: [id number] Acct: [id number] Name: JORGE ROQUE Remedios Rep #: [id number] : 1975 42 From: Derek Epps MD [...] for pain. He is also seeing Dr. Rocha general surgeon. Patient states that there determining [...] and Treatment: He will be given 2 Clayton here. A prescription for Percocet for pain 14 no refill and any further pain meds need to be obtained through his primary care physician or his surgeon. Treatment Plan: Discharged to follow-up with Dr. Johann Rocha. Disposition: Discharged Impression: Acute on chronic abdominal wall pain secondary to a seroma and right lateral abdominal wall hernia status post nephrectomy This note was generated with ShoutWire dictation software. It may contain incorrect words, [...] problems, contact your Primary Care Provider. Call [email or web address] Registry ([phone]) or report to the closest Emergency Room. Call 911 if necessary. 05/01/18 0044 <Electronically signed by Derek Epps MD> Date Derek Epps MD Cosigner Signature (If Indicated): Date CC: Jameson Herrera MD DISCHARGE INSTRUCTION Observed: 05/01/2018 Status: F Source: [place] 12:44 AM [facility] REPOSITORY [facility] Medical Records Department [address] [place] [address] Discharge Instruction 04/30/18 1742 MR#: [id number] Acct: [id number] Name: JORGE ROQUE Rep #: [id number] : 1975 42 From: Derek Epps MD [...] your Primary Care Provider. Call [facility] ([phone]) or report to the closest Emergency Room. Call 911 if necessary. 05/01/18 0044 <Electronically signed by Derek Epps MD> Date Derek Epps MD Cosigner Signature (If Indicated): Date CC: Jameson Herrera MD PROGRESS Observed: 04/23/2018 Status: COMPLETED Source: [place] 6:54 AM [facility] REPOSITORY O ID: [id number] Author: Fartun Rocha Service: (none) Author Type: Physician Type: Progress Notes Filed: 04/25/2018 10:18 AM Note Text: HISTORY AND PHYSICAL Jorge Roque 1975 REFERRING PHYSICIAN: Blair Alexander (Pa-C* CHIEF COMPLAINT: Consult (Consult Vental hernia) HPI: [...] is to review the CT scan. Unfortunately, [facility] computer system is currently unavailable and images [...] MD CNOV Observed: 04/22/2018 Status: COMPLETED Source: [place] 1:40 PM [facility] REPOSITORY Office Visit (GENSWS) JORGE ROQUE ([id number]) 1975 M Date Time Provider Department 04/22/18 1:40 PM FARTUN ROCHA During your visit today, we recorded the following information about you: Pulse Blood pressure Weight 68/minute 138/84 176 kg Veronika Hastings PROGRAM CHECKER 04/22/2018 2:47 PM Signed REVIEW OF SYSTEMS: [...] 10:18 AM Addendum HISTORY AND PHYSICAL Jorge Roque 1975 REFERRING PHYSICIAN: Blair Alexander (Laura-C* CHIEF COMPLAINT: Consult (Consult Vental hernia) HPI: [...] entered by the nurse and reviewed by sc Nursing Notes: Veronika Hastings LPN 04/22/2018 2:47 [...] screening? N/A Last Colonoscopy: nONE Veronika Hastings [facility] PHYSICAL EXAMINATION: General: The patient is 42 [...] is to review the CT scan. Unfortunately, [facility] computer system is currently unavailable and images [...] This note will be forwarded to Dr. Jamseon Herrera MD. Diagnoses: (R10.9) Right flank pain [...] Rocha MD Referring Provider: Blair ALEXANDER (NAHUM) [[id number]] Allergies As of Date: 04/22/2018 Noted Allergy [...] bean*INVALID FOR* Visit Notes: >> Veronika Hastings LPN FriApr 22, 2018 2:46 PM Status: Signed [...] screening? N/A Last Colonoscopy: nONE Veronika Hastings JANETT Follow-up and Disposition History Recorded Encounter Status:Closed by FARTUN ROCHA MD on 04/23/18 PROGRESS Observed: 04/14/2018 Status: COMPLETED Source: [place] 12:52 PM [facility] REPOSITORY HNO ID: [id number] Author: Blair Steiner (Nahum) Benjamin Service: (none) Author Type: Physician Green Material Value Added Assessor Type: Progress Notes Filed: 04/14/2018 3:39 PM Note Text: 42 year old male with c/o pain in RLQ abdomen since partial Nephrectomy 03/09/18, bx + for clear cell renal cancer. Was seen in [facility] a week in ER: told [...] ICD10: E66.01 Improving weight: congratulated. NAHUM Garcia Observed: 04/14/2018 Status: COMPLETED Source: [place] 12:40 PM [facility] REPOSITORY Office Visit (FAMPWS) JORGE ROQUE ([id number]) 1975 M Date Time Provider Department 04/14/18 12:40 PM Blair ALEXANDER) FAMPWS During your visit today, we recorded the following information about you: Pulse Blood pressure Weight 72/minute 132/88 171.6 kg Blair Alexander PA-C 04/14/2018 3:39 PM Signed 42 year old male with c/o pain in RLQ abdomen since partial Nephrectomy 03/09/18, bx + for clear cell renal cancer. Was seen in [facility] a week in ER: told muscle wall ripped and has a hernia. Report retrieved. CT 04/02/18 demonstrates fat herniation in right lateral abdominal wall and a 9.4cm x 4.8cm Soft tissue density likely representing a post-surgical seroma. When to [place], sent to pain management. Started pain management. [...] Order(s):CONSULT TO GENERAL SURGERY [9011] Order #: [id number]: 1 oxyCODONE-acetaminophen (PERCOCET) 10-325 mg tabletTake 1 [...] 04/14/18 DANK Observed: 04/10/2018 Status: COMPLETED Source: [place] 12:00 AM [facility] REPOSITORY Telephone (UROLWS) JORGE ROQUE ([id number]) 1975 M Date Time Provider Department 04/10/18 DELMAR MENARD) UROLWS During your visit today, we recorded the following information about you: Valeriano Jeremias ROWLAND 04/10/2018 1:22 PM Signed Pt called expressing frustration getting pain medication. He notes that he has been back and forth With Saeid Menard, Dr Koenig and Dr Flaherty. He expressed concern regarding his hernia which he notes was evidenced on recent CT scan. Pt stated his next call will be an consumer attorney. Attempted to offer ombudsman information, but pt hung up Yusuf Fajardo DO, MBA, 04/10/2018 7:29 PM Signed There is no evidence of hernia on my examination He states he had a CT scan done at [facility] - but no results available. Could you [...] 04/10/18 PROGRESS Observed: 04/09/2018 Status: COMPLETED Source: [place] 10:44 AM [facility] REPOSITORY O ID: [id number] Author: Yusuf Fajardo DO Service: (none) Author Type: Physician Type: Progress Notes Filed: 04/09/2018 10:49 AM Note Text: [facility] POST-OPERATIVE PATIENT CC: [...] EDMUND CNOV Observed: 04/09/2018 Status: COMPLETED Source: [place] 9:45 AM [facility] REPOSITORY Office Visit (UROLMD) JORGE ROQUE ([id number]) 1975 M Date Time Provider Department 04/09/18 9:45 AM YUSUF FAJARDO URODORINA During your visit today, we recorded the following information about you: Weight Height 174.2 kg 1.727 m Flaquita [facility] 04/09/2018 10:03 AM Signed Patient presents with: Post Op: DOS 03/09/2018,Right Partial Nephrectomy Yusuf Fajardo DO, MBA, 04/09/2018 10:49 AM Signed [facility] POST-OPERATIVE PATIENT CC: [...] Fajardo DO MBA Referring Provider: JAMESON HERRERA [[id number]] Allergies As of Date: 04/09/2018 (No Known [...] kidney, except bean*INVALID FOR* Visit Notes: >> Flaquitaaurora Barker Ma Evelin April 09, 2018 10:03 AM Status: Signed Patient presents with: Post Op: DOS 03/09/2018,Right Partial Nephrectomy Follow-up and Disposition History Recorded Letter Text Encounter Status:Closed by YUSUF FAJARDO DO, MBA on 04/09/18 PROGRESS Observed: 04/06/2018 Status: COMPLETED Source: [place] 11:26 AM [facility] REPOSITORY O ID: [id number] Author: Jann Koenig Service: (none) Author Type: Physician Type: Progress Notes Filed: 04/06/2018 12:21 PM Note Text: [facility] Pain Management Department Date: April 06, 2018 [...] Peoples Ma by interview and using data entry operator from patient completed questionnaire I have reviewed, [...] Urine pH, Pain Thakkar 4-10 10/07/2012 Specific [place],Ur Pain Thakkar 1.005-1.020 10/07/2012 Oxidants,Ur Negative 10/07/2012 [...] diagnostic tests reviewed for today's visit: The [facility] EMR was reviewed during the visit IMAGING [...] it relates to chronic benign pain. A senior care use of opioids have generally not been [...] 06, 2018 cc: Yusuf Fajardo DO, MBA [address] [facility] [address] Results of consultation to be transmitted via electronic medical record for those providers who practice within [facility] or with access to [employer] via MD Connect, or via letter. ARAM Observed: 04/06/2018 Status: COMPLETED Source: [place] 10:50 AM [facility] REPOSITORY Office Visit (PNMDNA) JORGE ROQUE ([id number]) 1975 M Date Time Provider Department 04/06/18 10:50 AM JANN KOENIG PNCARLENE During your visit today, we recorded the following information about you: Pulse Weight Height 72/minute 171 kg 1.727 m Jann Koenig MD 04/06/2018 12:21 PM Signed [facility] Pain Management Department Date: April 06, 2018 [...] Peoples Ma by interview and using data entry operator from patient completed questionnaire I have reviewed, [...] Urine pH, Pain Thakkar 4-10 10/07/2012 Specific [place],Ur Pain Thakkar 1.005-1.020 10/07/2012 Oxidants,Ur Negative 10/07/2012 [...] diagnostic tests reviewed for today's visit: The [facility] EMR was reviewed during the visit IMAGING [...] relates to chronic benign pain. 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 Referring Provider: YUSUF FAJARDO [[id number]] Allergies As of Date: 04/06/2018 (No Known [...] Status:Closed by JANN KOENIG MD on 04/06/18 DANK Observed: 04/06/2018 Status: COMPLETED Source: [place] 12:00 AM [facility] REPOSITORY Telephone ([employer]) JORGE ROQUE ([id number]) 1975 M Date Time Provider Department 04/06/18 DELMAR MENARD) [email or web address] During your visit today, we recorded the [...] in the interim per NAHUM Cruz DO, EDMUND, 04/06/2018 9:49 PM Signed Please schedule patient to see me in [place] This add on please Thanks Meghan Kilpatrick 04/07/2018 10:09 AM Signed Patient is already scheduled with Dr. Esteves on 04/09/18 in the [place] office Thank You Meghan Alcaraz Ma 04/07/2018 [...] EMERGENCY DEPARTMENT Observed: 04/02/2018 Status: F Source: [place] SUMMARY 4:32 PM [facility] REPOSITORY [facility] Medical Records Department [address] [place] [address] Emergency Department Summary 04/02/18 1145 MR#: [id number] Acct: [id number] Name: JORGE ROQUE Rep #: [id number] : 1975 42 From: Michael Hawk MD PCP: Jameson Herrera MD Status: DEP ER - ER Visit Summary Date of Service: 04/02/18 Chief Complaint: Abdominal pain History of Present Illness: The patient is a [address] Herrera. He had a partial right nephrectomy for renal cell cancer March 09 at [facility]. He reports he has had pain [...] Postoperative seroma. This note was generated with ShoutWire dictation software. It may contain incorrect words, [...] problems, contact your Primary Care Provider. Call [facility] Registry ([phone]) or report to the closest Emergency Room. Call 911 if necessary. 04/02/18 8892 <Electronically signed by Michael Hawk MD> Date Michael Hawk MD Cosigner Signature (If Indicated): Date CC: Jameson Herrera MD ABDOMEN/PELVIS WITHOUT Observed: 04/02/2018 Status: F Source: [place] CONT 10:21 AM [facility] REPOSITORY [facility] Imaging Services [address] [place] [address] Abdomen/Pelvis without Cont MR#: [id number] Acct: [id number] Name: JORGE ROQUE Rep #: [id number] : 1975 M 42 From: Chencho Templeton MD PCP: Jameson Herrera MD Status: REG ER Study: Abdomen/Pelvis without Cont Date of Exam: 04/02/18 Exam# [id number] Ordering Dr: Michael Hawk MD STUDY: CT [...] Chencho Templeton MD at 11:16 EDT Tel [phone], Service support , CC: Michael Hawk MD; Jameson Herrera MD Bobbin Presser: Signed CNCO Observed: 03/26/2018 Status: COMPLETED Source: [place] 12:00 AM [facility] REPOSITORY Letter Text Yusuf Fajardo DO [place] [facility] [address] [place] [address] oJrge Whittaker Mya March 26, 2018 Jorge Roque [address] [facility] [address] Dear Mr. Roque, It was noted that [...] DO PROGRESS Observed: 03/19/2018 Status: COMPLETED Source: [place] 10:17 AM [facility] REPOSITORY HNO ID: [id number] Author: Delmar Menard (Laura) Service: (none) Author Type: Physician Green Material Value Added Assessor Type: Progress Notes Filed: 03/19/2018 2:04 PM [...] PA-C CNOV Observed: 03/19/2018 Status: COMPLETED Source: [place] 10:15 AM [facility] REPOSITORY Office Visit (UROLWS) JORGE ROQUE ([id number]) 1975 M Date Time Provider Department 03/19/18 [...] Cruz MT, PA-C Referring Provider: YUSUF FAJARDO [[id number]] Allergies As of Date: 03/19/2018 (No Known [...] 15 tabletRfl: 0 XR CHEST 2V FRONTAL/LAT [[id number]] Order #: [id number] FUTURE CT ABDOMEN W IVCON [[id number]] Order #: [id number] FUTURE iv contrast (radiology procedure)CT ABD W [...] 0 BASIC METABOLIC PNL [SQBMP] Order #: [id number] FUTURE Prescriptions as of 03/19/2018 Sig: KETOROLAC [...] EMERGENCY DEPARTMENT Observed: 03/16/2018 Status: F Source: [place] SUMMARY 12:30 AM [facility] REPOSITORY [facility] Medical Records Department [address] [place] [address] Emergency Department Summary 03/15/18 2318 MR#: [id number] Acct: [id number] Name: JORGE ROQUE Rep #: [id number] : 1975 42 From: Derek Epps MD PCP: Jameson Herrera MD Status: DEP ER - ER Visit Summary Date of Service: 03/15/18 Chief Complaint: I think my incision is infected History of Present Illness: The patient is a 42 M is post partial nephrectomy on the right done at [facility] approximately 1 week ago secondary to a [...] will be given a home pack and Clayton for pain. He is going to call his [facility] flatwork catcher tomorrow for repeat evaluation. He does not have a scheduled appointment for at least another week and I told him he needs to get in before that. Treatment Plan: Keflex 500 4 times daily. Disposition: discharge Impression: Abdominal wall surgical site infection with cellulitis Status post partial nephrectomy This note was generated with ShoutWire dictation software. It may contain incorrect words, [...] your Primary Care Provider. Call [facility] ([phone]) or report to the closest Emergency Room. Call 911 if necessary. 03/16/18 0030 <Electronically signed by Derek Epps MD> Date Derek Epps MD Cosigner Signature (If Indicated): Date CC: Jameson Herrera MD DISCHARGE INSTRUCTION Observed: 03/16/2018 Status: F Source: [place] 12:30 AM [facility] REPOSITORY [facility] Medical Records Department [address] [place] [address] Discharge Instruction 03/15/18 2322 MR#: [id number] Acct: [id number] Name: JORGE ROQUE Rep #: [id number] : 1975 42 From: Derek Epps MD [...] problems, contact your Primary Care Provider. Call [facility] ([phone]) or report to the closest Emergency Room. Call 911 if necessary. 03/16/18 0030 <Electronically signed by Derek Epps MD> Date Derek Epps MD Cosigner Signature (If Indicated): Date CC: Jameson Herrera MD CNPN Observed: 03/16/2018 Status: COMPLETED Source: [place] 12:00 AM [facility] OTHER CAMPUS REPOSITORY Telephone (AKURFL) JORGE ROQUE ([id number]) 1975 M Date Time Provider Department 03/16/18 YUSUF FAJARDO During your visit today, we recorded the following information about you: Doris Herrera [facility] 03/16/2018 10:48 AM Signed Pt called stated he is having an increase in pain today and is out of his pain meds. Pt is calling asking for a refill on his pain meds.Please advise. Doris Fajardo DO, MBA, 03/16/2018 12:28 PM Signed Will need to warehouse picker pain meds from [place] [facility] to Lori Herrera CMA 03/16/2018 1:23 PM Signed Called pt to advise to contact Dr lori Francisco RN, RN 03/16/2018 1:43 PM Signed Spoke to pt and explained to him why he needs to get rx from Dr. Menard. Because his f/u appt is with him and he voices understanding Sherrill Francisco RN Allergies As of Date: 03/16/2018 (No Known Allergies) Date Reviewed: 03/09/2018 Reviewed by: Ximena YuRn) ANA LAURA Burris - Fully Assessed Reason for Visit: Pain [78] Primary Visit Diagnosis:Renal mass, right [N28.89] Order(s):CREATININE BLD [SQCRET] Order #: [id number] FUTURE XR CHEST 2V FRONTAL/LAT [[id number]] Order #: [id number] FUTURE CT ABDOMEN W IVCON [[id number]] Order #: [id number] FUTURE iv contrast (radiology procedure)CT ABD W [...] 03/16/18 PROGRESS Observed: 03/14/2018 Status: COMPLETED Source: [place] 4:22 AM [facility] REPOSITORY HNO ID: [id number] Author: Downtime Note Service: (none) Author Type: (none) Type: Progress Notes Filed: 03/14/2018 4:37 AM Note Text: Epic Scheduled Downtime: 03/13/2018 11:34:32 PM to 03/14/2018 4:17:42 AM CNDS Observed: 03/11/2018 Status: COMPLETED Source: [place] 10:26 AM [facility] REPOSITORY HNO ID: [id number] Author: Azam Palacios Service: Urology Author Type: [...] AM PROGRESS Observed: 03/11/2018 Status: COMPLETED Source: [place] 10:21 AM CLINIC OTHER CAMPUS REPOSITORY HNO ID: [id number] Author: Azam Palacios Service: Urology Author Type: Resident Type: Progress Notes Filed: 03/11/2018 10:22 AM Note Text: MEMO Removed All questions answered, no concerns DC planning Azam Palacios MD PROGRESS Observed: 03/11/2018 Status: COMPLETED Source: [place] 6:35 AM CLINIC OTHER CAMPUS REPOSITORY HNO ID: [id number] Author: Joshua Larios Service: Urology Author Type: [...] Soft, non-tender, nondistended : Inc with dominguez.MEMO 260cc Labs and Imaging Studies LABS: BMP: [...] (thou/cmm) Date Value 03/11/2018 151 Urinalysis: Specific [place], Ur Date Value Ref Range Status 01/27/2018 [...] MD HEMOGRAM/DIFF Collected: 03/11/2018 Status: F Source: [facility] 3:44 AM [facility] REPOSITORY TYPE CODE [...] LAB MONON(LOIN 0.30-0.82 thou/cmm C) Abs. High Hyde 1.57 LAB EOSN(LOINC 0.04-0.54 thou/cmm ) Low Abs. Eosin 0.01 LAB BASON(LOIN 0.01-0.08 thou/cmm C) Abs. Baso 0.03 Performed By: #### CBCD1 #### [place] [address] BASIC PANEL Collected: 03/11/2018 Status: F Source: [facility] 3:44 AM [facility] SYSTEM REPOSITORY TYPE CODE [...] Gap 8 Performed By: #### P8 #### [place] [address] MDRD GFR Collected: 03/11/2018 Status: F Source: [facility] 3:44 AM [facility] REPOSITORY TYPE CODE TESTS RESULT OUT OF RANGE REFERENCE UNITS LAB GFRFN(LOINC >60mL/min/1.73m ) 2 eGFR >60 Result Comment: If the patient is , multiply the result by 1.210. Performed By: #### GFR #### [place] [address] CNPN Observed: 03/11/2018 Status: COMPLETED Source: [place] 12:00 AM [facility] OTHER [facility] REPOSITORY Telephone (AKURFL) JORGE ROQUE ([id number]) 1975 M Date Time Provider Department 03/11/18 [...] 03/11/18 PROGRESS Observed: 03/10/2018 Status: COMPLETED Source: [place] 4:04 PM [facility] OTHER [facility]AMP[facility] REPOSITORY HNO ID: [id number] Author: Azam (Naheed) Suzanne Service: Urology Author Type: Resident Type: Progress Notes Filed: 03/10/2018 4:05 PM Note Text: PM Rounds: Doing well. Ambulating. 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 +PCP. +Rx coverage. No DME. Anticipate return home when medically stable. SIGNATURE: Danish Becerra RN PATIENT NAME: Jorge Roque DATE: March 10, 2018 TIME: 11:18 AM PAGER/CONTACT #: [id number] PROGRESS Observed: 03/10/2018 Status: COMPLETED Source: [place] 8:02 AM [facility] OTHER [facility] REPOSITORY HNO ID: [id number] Author: Yusuf Fajardo DO Service: Urology Author [...] (thou/cmm) Date Value 03/10/2018 192 Urinalysis: Specific [place], Ur Date Value Ref Range Status 01/27/2018 [...] Cr wnl, maintain for now 220cc Subq zina Palacios MD Attending Note I evaluated the patient and personally participated in the parekh components. I agree with the resident's findings and plan as documented and have discussed the case and management of the patient's care with the resident. Signature: Yusuf Fajardo DO, MBA Date: 03/10/2018 Time: 6:30PM HEMOGRAM Collected: 03/10/2018 Status: F Source: [facility] 3:51 AM [facility] REPOSITORY [...] MPV 11.1 Performed By: #### CBC1 #### [place] [address] CREATININE, FLUID Collected: 03/10/2018 Status: F Source: [facility] 3:51 AM [facility] REPOSITORY TYPE CODE TESTS RESULT OUT OF RANGE REFERENCE UNITS LAB CREAF(LOINC mg/dL ) 0.9 Creatinine, Fluid Result Comment: Performance characteristics of this assay have not been evaluated for body fluids. No reference range has been established. Test analyzed by the Siemens's [place] method. LAB BFTYP(LOINC) Specimen Peritoneal Type Performed By: #### CREBF #### [place] [address] BASIC PANEL Collected: 03/10/2018 Status: F Source: [facility] 3:51 AM HEALTH SYSTEM REPOSITORY TYPE CODE [...] Gap 8 Performed By: #### P8 #### [place] [address] MDRD GFR Collected: 03/10/2018 Status: F Source: [facility] 3:51 AM [facility] SYSTEM REPOSITORY TYPE CODE TESTS RESULT OUT OF RANGE REFERENCE UNITS LAB GFRFN(LOINC >60mL/min/1.73m ) 2 eGFR >60 Result Comment: If the patient is , multiply the result by 1.210. Performed By: #### GFR #### [place] [address] ANES POST Observed: 03/09/2018 Status: COMPLETED Source: [place] 11:04 PM CLINIC OTHER CAMPUS REPOSITORY HNO ID: [id number] Author: Blaine Fontenot Service: Anesthesiology Author Type: Physician Type: Anesthesia PostOp Filed: 03/09/2018 11:04 PM Note Text: POST ANESTHESIA EVALUATION NOTE SERVICE DATE: 03/09/2018 SERVICE TIME: 11:04 PM : 1975 Vitals: 03/09/18 1909 03/09/18 19103/09/18202103/09/182117 Temp: 36.1 ?C (97 ?F) 36.1 ?C [...] NURSING PROG Observed: 03/09/2018 Status: COMPLETED Source: [place] 4:25 PM [facility] OTHER [facility] REPOSITORY HNO ID: [id number] Author: Melony (Rn) ANA LAURA Stover Service: (none) Author Type: Registered Nurse Type: Nursing Progress Note Filed: 03/09/2018 5:25 PM Note Text: FAMILY WAITING ROOM CALLED AND UPDATED THAT SURGERY IS PROGRESSING. FAMILY WAITING ROOM CALLED AND UPDATED THAT SURGERY IS PROGRESSING AT 1725. OPERATIVE NO Observed: 03/09/2018 Status: COMPLETED Source: [place] 1:35 PM [facility] OTHER [place] REPOSITORY HNO ID: [id number] Author: Yusuf Fajardo DO Service: Urology Author Type: Physician Type: Operative Report Filed: 03/09/2018 7:06 PM Note Text: DOS: March 09, 2018 Pre-op Diagnosis: R Renal Mass Post-op Diagnosis: SAME Operation: RIGHT PARTIAL NEPHRECTOMY (laparoscopic with robotic assistance) Intraoperative diagnostic ultrasound of kidney and retroperitoneum Surgeon : Scotty Green Material Value Added Assessor: Suzanne Anesthesia: General Special Consideration: Modifier Indications:Jorge Roque is a 42 year old year-old male who was referred to [facility] for treatment of a right sided renal [...] [place] PREOP Observed: 03/09/2018 Status: COMPLETED Source: [place] 11:50 AM [facility] REPOSITORY O ID: [id number] Author: Carlos Rodríguez Service: Anesthesiology Author Type: [...] March 09, 2018 TIME: 11:50 AM CSN: [id number] SURGICAL TISSUE EXAM Observed: 03/09/2018 Status: F Source: [facility] 12:00 AM HEALTH SYSTEM REPOSITORY Test performed at [address] [address] NAME: JORGE ROQUE REQUESTING: YUSUF FAJARDO DO COPY TO: TUMOR REGISTRY; BEHAVIORAL MEDICAL DIRECTOR FINAL DIAGNOSIS: KIDNEY, RIGHT, PARTIAL NEPHRECTOMY - [...] at the inked parenchymal margin of resection. Cruller Maker sections are submitted as follows: 1-2 - mass in relationship to nearest parenchymal line of resection; 3-4 - mass in relationship to nearest capsule/soft tissue margin; 5 - indirect sales representative section of uninvolved renal parenchyma. ARH:naima SARGENT M.D.,PATHOLOGIST (Electronic signature on file) Signed out: 03/13/2018 16:52 PRINTED: 03/13/2018 Page 1 of 1 Performed By: #### SURG #### [place] [address] CHEST 2 VIEWS Observed: 03/05/2018 Status: F Source: [facility] [address] 2:15 PM HEALTH SYSTEM REPOSITORY Performed at [facility] APPROVED BY: WILLIAM WOOD MD EXAMINATION: [...] identified. HEMOGRAM Collected: 03/05/2018 Status: F Source: [facility] 1:32 PM HEALTH SYSTEM REPOSITORY TYPE CODE [...] MPV 11.8 Performed By: #### CBC1 #### [place] [address] BASIC PANEL Collected: 03/05/2018 Status: F Source: [address] SYSTEM REPOSITORY TYPE CODE TESTS RESULT OUT [...] Gap 7 Performed By: #### P8 #### [place] [address] MDRD GFR Collected: 03/05/2018 Status: F Source: [address] SYSTEM REPOSITORY TYPE CODE TESTS RESULT OUT OF RANGE REFERENCE UNITS LAB GFRFN(LOINC >60mL/min/1.73m ) 2 eGFR >60 Result Comment: If the patient is , multiply the result by 1.210. Performed By: #### GFR #### [facility] [address] [place] [address] TYPE AND SCREEN Collected: 03/05/2018 Status: F Source: [facility] 1:32 PM [facility]ALTH SYSTEM REPOSITORY TYPE CODE TESTS RESULT OUT OF REFERENCE UNITS RANGE LAB ABO(LOINC) O ABO Group LAB MERCHANDISING REPRESENTATIVE(LOINC ) RH Type Positive LAB ABSCR(LOIN C) Antibody NEGATIVE Screen LAB BBCMT(LOIN C) Comment PAT specimen Performed By: #### T&S #### [facility] [address] [place], [place] [address] HISTORY PHYSICAL Observed: 03/05/2018 Status: COMPLETED Source: [place] 1:26 PM CLINIC OTHER CAMPUS REPOSITORY HNO ID: [id number] Author: Cathy Tipton (Cruller Maker) Tiago Service: (none) Author Type: Nurse Practitioner [...] mass Planned Procedure: ROBOTIC LAPAROSCOPIC NEPHRECTOMY PARTIAL [88408] right The Following Tests/Procedures Have Been Initiated: EKG Xray CBC TANDS BMP Urine culture CONSULTS: none Planned Anesthetic: General Instructions Given to Patient: Patient given verbal and written preop instructions and voices comprehension and compliance. SIGNATURE: Cathy Ordoñez APRN.CNP PATIENT NAME: Jorge Roque DATE: March 05, 2018 TIME: 1:26 PM PAGER/CONTACT #: Observed: 03/05/2018 Status: F Source: [facility] CULT URINE 1:00 PM HEALTH SYSTEM REPOSITORY Test performed at [facility] Mixed skin roopa. No further identification or susceptibility testing will be performed. Please submit a new specimen. Plates will be held for 5 days. Performed By: #### C_URI #### [facility] [address] [place] [address] CNPN Observed: 02/27/2018 Status: COMPLETED Source: [place] 12:00 AM CLINIC OTHER CAMPUS REPOSITORY Telephone (AKURGR) JORGE ROQUE ([id number]) 1975 M Date Time Provider Department 02/27/18 YUSUF FAJARDO During your visit today, we recorded the following information about you: Lyndsay Crisostomo [facility] 02/27/2018 12:03 PM Signed ----- Message from Yusuf Fajardo, sent at 02/27/2018 11:03 AM EDT ----- Please let the patient noted that I reviewed the imaging We will proceed to partial nephrectomy surgery on the as scheduled Lyndsay Crisostomo [facility] 02/27/2018 12:05 PM Signed Called home phone number and it states number has been changed or disconnected. Called moblie number and it states ANDquot;not accepting incoming calls at this timeANDquot;. Please try again later. Lyndsay Crisostomo [facility] Cortney Caldwell [facility] 03/04/2018 8:08 AM Signed Home line not in service. Cell phone not excepting calls. Emergency contact Mother Kylee phone # not in service. Will keep trying pt. Cortney Caldwell [facility]' Lyndsay Crisostomo [facility] 03/06/2018 9:04 AM Signed Tried all phone numbers on file and emergency contact... All numbers are coming back not in service or not accepting incoming calls at this time. Keep trying. Lyndsay [facility] Ximena Chidi [facility] 03/10/2018 8:54 AM Signed Pt had surgery on 03/09/18 Closing call Ximena Haywoodmadhu [facility] Allergies As of Date: 02/27/2018 (No Known [...] 03/09/18 PROGRESS Observed: 02/20/2018 Status: COMPLETED Source: [place] 2:34 PM [facility] REPOSITORY HNO ID: [id number] Author: Carrie Molina Ct Service: (none) Author [...] CT; Exam(s) Completed: Kidney SIGNED BY: Carrie Love Jesse Ct February 20, 2018 2:[address] KIDNEY WO/W Observed: 02/20/2018 Status: F Source: [place] IVCON 12:21 PM [facility] REPOSITORY * * *Final Report* * * DATE OF EXAM: Feb 20 2018 12:21PM [facility] 0546 - CT KIDNEY WO/W IVCON / [...] REGIONAL LYMPHADENOPATHY, VASCULAR INVASION, OR DISTANT METASTASES Bobbin Presser: ARNIE Transcribe Date/Time: Feb 22 2018 2:05P Dictated by : ABDIRAHMAN RIVERA MD This examination was interpreted and the report reviewed and electronically signed by: ABDIRAHMAN RIVERA MD on Feb 22 2018 2:12PM EST [id number] CNCO Observed: 02/17/2018 Status: COMPLETED Source: [place] 12:00 AM [facility] REPOSITORY Letter Text Guidelines for low [...] milk. Avoid sweet rolls, doughnuts, breakfast pastries (Malay), and sweetened packaged cereals (the added sugar [...] such as the one published by the [place] Heart Association. 5. Consult your physician if you have any questions. CNCO Observed: 02/17/2018 Status: COMPLETED Source: [place] 12:00 AM [facility] REPOSITORY Letter Text Jameson Herrera MD [facility] Jorge Roque [address] [facility] [place] [facility] [address] Clinic #: [id number] 02/17/2018 Dear Mr. Roque, I have received the results of your recent tests. The results of your lab tests were either normal or within the acceptable range. LDL is mildly up cholesterol lowering diet attached. We can discuss this at your next visit. Please do not hesitate to contact me with any questions. Sincerely, Jameson Herrera MD [facility] Department electronically signed to expedite mailing CBC AND DIFFERENTIAL Collected: 02/16/2018 Status: F Source: [place] 12:17 PM [facility] REPOSITORY TYPE CODE TESTS RESULT [...] k/uL Abs Lymph 1.82 LAB AMONO % Hyde% 7.5 LAB AAMONO <0.87 k/uL Abs Hyde 0.50 LAB AEOS % Eosin% 1.5 LAB AAEOS <0.46 k/uL Abs Eosin 0.10 LAB ABASO % Baso% 0.4 LAB AABASO <0.11 k/uL Abs Baso 0.03 LAB AUNRBC 0 /100 WBC NRBCs 0.0 LAB ABNRBC <0.01 k/uL Absolute nRBC <0.01 LAB DTYP DTYPE Auto Diff Performed By: #### CBCDIF, BMP, LIPNF #### [facility] [address] [place], [place] [address] BASIC METABOLIC PANL Collected: 02/16/2018 Status: F Source: [place] 12:17 PM [facility] REPOSITORY TYPE CODE TESTS RESULT OUT OF REFERENCE UNITS RANGE LAB GLU 74-99 mg/dL Glucose 74 Result Comment: The [place] Diabetes Association (ADA) provides guidance for cutoff [...] Standards of Medical Care in Diabetes 2016, [place] Diabetes Association. Diabetes Care. 2016.39(Suppl 1). LAB [...] Performed By: #### CBCDIF, BMP, LIPNF #### [facility] [address] [place], [place] [address] LIPID PANEL, NONFAST Collected: 02/16/2018 Status: F Source: [place] 12:17 PM [facility] REPOSITORY TYPE CODE TESTS [...] Desk Reference: National Heart, Lung, and Blood [place]. National Institutes of Health. 2001: NIH Publication No. 01-3305. 2. An International Atherosclerosis Society position paper: global recommendations for the management of dyslipidemia: executive summary, Atherosclerosis. 2014: 232(2):410-413. Performed By: #### CBCDIF, BMP, LIPNF #### [facility] [address] [place] [id number] CNPN Observed: 02/10/2018 Status: COMPLETED Source: [place] 12:00 AM CLINIC OTHER CAMPUS REPOSITORY Telephone (AKURFL) JORGE ROQUE ([id number]) 1975 M Date Time Provider Department 02/10/18 [...] EMERGENCY DEPARTMENT Observed: 02/08/2018 Status: F Source: [facility] 11:52 PM [facility] REPOSITORY [facility] Medical Records Department [address] [facility] [place] [address] Emergency Department Summary 02/08/18 1718 MR#: [id number] Acct: [id number] Name: JORGE ROQUE Rep #: [id number] : 1975 42 From: Meghan Martínez MD [...] in the last year. He is given Clayton and Flexeril here and be given prescriptions for the same. Treatment Plan: [] Disposition: Discharge Impression: Lumbar paraspinal strain This note was generated with ShoutWire dictation software. It may contain incorrect words, [...] problems, contact your Primary Care Provider. Call [facility] Registry ([phone]) or report to the closest Emergency Room. Call 911 if necessary. 02/08/18 1012 <Electronically signed by Meghan Martínez MD> Date Meghan Martínez MD Cosigner Signature (If Indicated): Date CC: Jameson Herrera MD DISCHARGE INSTRUCTION Observed: 02/08/2018 Status: F Source: [place] 5:22 PM [facility] REPOSITORY [facility] Medical Records Department [address] [place] [address] Discharge Instruction 02/08/18 1720 MR#: [id number] Acct: [id number] Name: JORGE ROQUE Rep #: [id number] : 1975 42 From: Meghan Martínez MD PCP: Jameson Herrera MD Status: REG ER ED Disposition - Plan for ED Patient: Disposition: Home or Assisted Living Chief Complaint: Back Instructions: ED Sprain Strain Lumbar Prescriptions: Hydrocodone Bitart/Apap 5-325 [Clayton 5/325] 1 - 2 tablet PO Q6H [...] your Primary Care Provider. Call [facility] ([phone]) or report to the closest Emergency Room. Call 911 if necessary. 02/08/18 1722 <Electronically signed by Meghan Martínez MD> Date Meghan Martínez MD Cosigner Signature (If Indicated): Date CC: Jameson Herrera MD NM RENAL FLOW/FXN W Observed: 02/06/2018 Status: F Source: [facility] 11:30 AM CLINIC OTHER CAMPUS REPOSITORY [...] KIDNEY. NO EVIDENCE FOR URINARY TRACT OBSTRUCTION. Bobbin Presser: ARNIE Transcribe Date/Time: Feb 06 2018 1:42P Dictated by : JEREMY HUERTA MD This examination was interpreted and the report reviewed and electronically signed by: JEREMY HUERTA MD on Feb 06 2018 1:45PM EST [id number] NURSING PROG Observed: 02/06/2018 Status: COMPLETED Source: [place] 11:11 AM [facility] [place] REPOSITORY HNO ID: [id number] Author: Ebony (Rn) ANA LAURA Blount Service: Radiology Author Type: Registered Nurse Type: Nursing Progress Note Filed: 02/06/2018 11:11 AM Note Text: Pt given lasix injection IV for procedure per protocol. CNPN Observed: 02/04/2018 Status: COMPLETED Source: [place] 12:00 AM [facility] REPOSITORY Telephone (AKURFL) JORGE ROQUE ([id number]) 1975 M Date Time Provider Department 02/04/18 [...] unable to do today. Patient drove from [place], I'm not sure why he's being called [...] arrival of his scheduled time. Thanks - Crystal Allergies As of Date: 02/04/2018 (No Known [...] 02/04/18 PROGRESS Observed: 02/02/2018 Status: COMPLETED Source: [place] 12:44 PM CLINIC OTHER CAMPUS REPOSITORY HNO ID: [id number] Author: Sparkle Goldberg Service: (none) Author Type: (none) Type: Progress Notes Filed: 02/02/2018 12:47 PM Note Text: Pt is scheduled 03/09/2018 @ 12 PM, PAT 03/02/2018 @ 9:20 AM - Pt is aware and understands surgery information. Booklet Mailed - Sparkle PROGRESS Observed: 01/28/2018 Status: COMPLETED Source: [place] 5:32 PM [facility] [place] REPOSITORY HNO ID: [id number] Author: Yusuf Fajardo DO Service: (none) Author Type: Physician Type: Progress Notes Filed: 01/28/2018 5:41 PM Note Text: [facility] [place] PATIENT INFO: Jorge Remedios Roque 42 year [...] incidentally His CT scan is uploaded into [employer] He saw Delmar Menard in [place] and is here for surgical evaluation VOIDING [...] or problems. No history of angina, CHF, [place], cardiac surgery of stents. Respiratory: Negative for [...] problems. Neurologic: No history of TIA's, stroke, ACADEMIC PHYSICIAN tumor, impaired sensorium, hemiplegia, paraplegia or quadriplegia. [...] neg Neg Ketones, Urine trace Neg Specific [place], Ur 1.030 1.005 - 1.030 Hemoglobin/Blood,Ur neg Neg pH, Urine 6.0 4.5 - 8.0 Protein, Urine neg Neg mg/dL Urobilinogen, Urine 0.2 Normal (<1.1) EU Nitrites neg Neg Leukocytes neg Neg Color/Appearance yellow/clear comment: Quality Check Yes yes/no RADIOLOGY: YES CT Scan at [facility] Right Renal Mass - 3.7 [...] advantage with preservation of long-term renal function senior care and the equivalent long-term cancer control rates [...] patient wanted to proceed with therapy at [facility]. I spent approximately 45 minutes in this visit, with more than 50% of the time devoted to patient discussion, counseling, review of records and/or coordination of care. Yusuf WEEMS Observed: 01/28/2018 Status: COMPLETED Source: [place] 12:00 AM CLINIC OTHER CAMPUS REPOSITORY Telephone (AKURFL) MYAJORGE ([id number]) 1975 M Date Time Provider Department 01/28/18 YUSUF FAJARDO During your visit today, we recorded the following information about you: Sparkle Goldberg 01/28/2018 3:39 PM Signed Spoke with pt and he is aware of surgery information Pt is scheduled @ [facility] 03/09/18 Sparkle Fajardo DO 01/28/2018 6:01 [...] FOR* Encounter Status:Closed by SPARKLE COHEN on 01/28/18 HOSP Observed: 01/28/2018 Status: COMPLETED Source: [place] 12:00 AM [facility] OTHER CAMPUS REPOSITORY Patient:Jorge Roque MRN: <[id number]> Height:5' 8(1.727 m) Weight:380 lb (172.367 kg) [...] 40.1 Progress Notes (URODanuta NIXON): Lyndsay Crisostomo [facility] 02/27/2018 12:03 PM Signed ----- Message from Yusuf Fajardo DO sent at 02/27/2018 11:03 AM EDT ----- Please let the patient noted that I reviewed the imaging We will proceed to partial nephrectomy surgery on the as scheduled Lyndsay Crisostomo [facility] 02/27/2018 12:05 PM Signed Called home phone number and it states number has been changed or disconnected. Called moblie number and it states not accepting incoming calls at this time. Please try again later. Lyndsay Crisostomo [facility] Cortney Paulette [facility] 03/04/2018 8:08 AM Signed Home line not in service. Cell phone not excepting calls. Emergency contact Mother Kylee phone # not in service. Will keep trying pt. Cortney Caldwell [facility]' Lyndsay Deacon [facility] 03/06/2018 9:04 AM Signed Tried all phone numbers on file and emergency contact... All numbers are coming back not in service or not accepting incoming calls at this time. Keep trying. Lyndsay Crisostomo [facility] Progress Notes (RADIO CT SCAN [facility]): Carrie Molina Ct 02/20/2018 2:35 PM [...] PM CNOV Observed: 01/27/2018 Status: COMPLETED Source: [place] 12:45 PM CLINIC OTHER CAMPUS REPOSITORY Office Visit (MALAURFDanuta) JORGE ROQUE ([id number]) 1975 M Date Time Provider Department 01/27/18 12:45 PM YUSUF FAJARDO During your visit today, we recorded the following information about you: Blood pressure Weight Height 150/88 172.4 kg 1.727 m Yusuf Fajardo DO 01/28/2018 5:41 PM Signed [facility] PATIENT INFO: Jorge Roque 42 year old [...] incidentally His CT scan is uploaded into [employer] He saw Delmar Menard in [place] and is here for surgical evaluation VOIDING [...] or problems. No history of angina, CHF, [place], cardiac surgery of stents. Respiratory: Negative for [...] problems. Neurologic: No history of TIA's, stroke, ACADEMIC PHYSICIAN tumor, impaired sensorium, hemiplegia, paraplegia or quadriplegia. [...] neg Neg Ketones, Urine trace Neg Specific [place], Ur 1.030 1.005 - 1.030 Hemoglobin/Blood,Ur neg Neg pH, Urine 6.0 4.5 - 8.0 Protein, Urine neg Neg mg/dL Urobilinogen, Urine 0.2 Normal (ANDlt;1.1) EU Nitrites neg Neg Leukocytes neg Neg Color/Appearance yellow/clear comment: Quality Check Yes yes/no RADIOLOGY: YES CT Scan at [facility] Right Renal Mass - 3.7 [...] with preservation of long-term renal function terminal supervisor and the equivalent long-term cancer control rates [...] patient wanted to proceed with therapy at [facility]. I spent approximately 45 minutes in this visit, with more than 50% of the time devoted to patient discussion, counseling, review of records and/or coordination of care. Yusuf Fajardo DO, MBA Referring Provider: JAMESON HERRERA [[id number]] Allergies As of Date: 01/27/2018 (No Known Allergies) Date Reviewed: 01/27/2018 Reviewed by: Lyndsay Crisostomo CMA - Fully Assessed Reason for Visit: New Patient [172] Mass [64] Cmt: R kidney Primary Visit Diagnosis:Right renal mass [N28.89] Order(s):UA DIP B/O [1799466] Order #: [id number] CT KIDNEY WO/W IVCON [0984144] Order #: [id number] FUTURE iv contrast (radiology procedure)CT kidney wow [...] EachRfl: 0 NM RENAL FLOW/FXN W PHARM [7931812] Order #: [id number] FUTURE Prescriptions as of 01/27/2018 Sig: DICLOFENAC [...] 01/28/18 CNPN Observed: 01/22/2018 Status: COMPLETED Source: [place] 12:00 AM [facility] REPOSITORY Telephone (UROLWS) JORGE ROQUE ([id number]) 1975 M Date Time Provider Department 01/22/18 DELMAR MENARD) UROLWS During your visit today, we recorded the following information about you: Real Alcaraz Ma 01/22/2018 1:40 PM Signed Delmar Menard PA-C reviewed CT images from [facility] and does not think further imaging studies are needed at this point. Images uploaded to [facility] and pt will be referred to Dr. [...] him to arrange appointment. Pt verbalizes understanding. Rela Tipton Jeffrey Sanjeev 01/26/2018 9:28 AM Signed Patient stating that he hasn't received a call yet from Dr. Fajardo's office. Patient asking if this office could contact them Meghan Kilpatrick 01/26/2018 1:55 PM Signed Spoke to patient, he is scheduled to see Dr. Fajardo tomorrow 01/27/18 @12:45 in the [place] office, address given- Meghan Kilpatrick Allergies As of Date: 01/22/2018 (No Known Allergies) Date Reviewed: 01/20/2018 Reviewed by: Mavis Pabon - Fully Assessed Reason for Visit: Referral Information [4063] Primary Visit Diagnosis:Renal mass [N28.89] Order(s):CONSULT TO UROLOGY [9041] Order #: [id number]: 1 Problem List As Of Date 01/22/2018 Noted Resolved Hypertension [I10] INVALID FOR* Left knee pain [M25.562] INVALID FOR* Patellar tendinitis [M76.50] INVALID FOR* Morbid obesity [E66.01] INVALID FOR* Right renal mass [N28.89] INVALID FOR* Follow-up and Disposition History Recorded Encounter Status:Closed by DELMAR MENARD PA-C on 01/23/18 CNCO Observed: 01/21/2018 Status: COMPLETED Source: [place] 12:00 AM [facility] MAIN CAMPUS REPOSITORY Letter Text Jameson Herrera MD [facility] FAMILY MEDICINE Jorge Roque [address] [facility] [address] Clinic #: [id number] 01/21/2018 Dear Yumi RaeMya, I have received the results of your recent tests. The results of your Urinalysis test were either normal or within the acceptable range. We can discuss this at your next visit. Please do not hesitate to contact me with any questions. Sincerely, Jameson Herrera MD [facility] Department electronically signed to expedite mailing PROGRESS Observed: 01/20/2018 Status: COMPLETED Source: [place] 11:41 AM [facility] REPOSITORY O ID: [id number] Author: Delmar Menard (Pa) Service: (none) Author Type: Physician Green Material Value Added Assessor Type: Progress Notes Filed: 01/21/2018 9:29 PM Note Text: [facility] PATIENT INFO: Jorge Roque 42 year old [...] or problems. No history of angina, CHF, [place], cardiac surgery of stents. Respiratory: Negative for [...] problems. Neurologic: No history of TIA's, stroke, ACADEMIC PHYSICIAN tumor, impaired sensorium, hemiplegia, paraplegia or quadriplegia. [...] by amplification. RADIOLOGY: YES CT Scan at [facility] Right Renal Mass - 3.7 [...] and/or coordination of care. LUPE Cruz, [place], PADeepaC URINALYSIS WITH Collected: 01/20/2018 Status: F Source: [place] MICROSCOPIC 11:41 AM [facility] REPOSITORY TYPE CODE TESTS RESULT OUT OF REFERENCE UNITS RANGE LAB UCOL Yellow Color Yellow LAB [facility] Clear Clarity Clear LAB UGLUC Negative mg/dL Glucose, Urine Negative LAB UBIL Negative Bilirubin, Urine Negative LAB UKET Negative Ketones, Urine Negative LAB USPG 1.005-1.030 Specific [place], Ur 1.018 LAB UHGB Negative Hemoglobin/Blood, Negative [...] Epithelial Cells Performed By: #### UAWMIC #### [facility] [address] [place], [place] [address] CNOV Observed: 01/20/2018 Status: COMPLETED Source: [place] 10:40 AM [facility] REPOSITORY Office Visit (UROLMN) MYAJORGE LI ([id number]) 1975 M Date Time Provider Department 01/20/18 10:40 AM DELMAR MENARD) UROTORO During your visit today, we recorded the following information about you: LAURA Boyer 01/21/2018 9:29 PM Signed [facility] PATIENT INFO: Jorge Whittaker Mya 42 year old PCP: Jameson Herrera MD [...] or problems. No history of angina, CHF, [place], cardiac surgery of stents. Respiratory: Negative for [...] problems. Neurologic: No history of TIA's, stroke, ACADEMIC PHYSICIAN tumor, impaired sensorium, hemiplegia, paraplegia or quadriplegia. [...] by amplification. RADIOLOGY: YES CT Scan at [facility] Right Renal Mass - 3.7 [...] records and/or coordination of care. LUPE Cruz, [place], NAHUM Referring Provider: JAMESON HERRERA [[id number]] Allergies As of Date: 01/20/2018 (No Known Allergies) Date Reviewed: 01/20/2018 Reviewed by: Mavis Pabon - Fully Assessed Primary Visit Diagnosis:Right renal mass [N28.89] Order(s):CT KIDNEY WO/W IVCON [[id number]] Order #: [id number] [] iv contrast (radiology procedure)CT kidney wow [...] EachRfl: 0 CREATININE BLD [SQCRET] Order #: [id number] Prescriptions as of 01/20/2018 Sig: IV CONTRAST [...] 01/21/18 PROGRESS Observed: 01/06/2018 Status: COMPLETED Source: [place] 2:07 PM [facility]INIC MAIN [place] REPOSITORY O ID: [id number] Author: Jameson Herrera Service: (none) Author Type: Physician Type: Progress Notes Filed: 01/06/2018 2:25 PM Note Text: Patient presents with: ED Follow-up HPI: Patient presents today for office visit for ER follow up. HOSPITAL/ER FOLLOW UP: Reason for visit: fall Which facility: [facility] Date of visit: 12/26 Diagnosis: [...] MD CNCO Observed: 01/05/2018 Status: COMPLETED Source: [place] 12:00 AM [facility] MAIN CAMPUS REPOSITORY Letter Text Yusuf Fajardo [facility] Medical Office Building [address] [place] [address] Jorge Roque January 05, 2018 Jorge Roque [address] [facility] [address] Dear Jorge Roque: Due to a change in your provider's schedule, it has become necessary to reschedule the following appointment: Shaunmilton DO Scotty Date: February 12, 2018 Time: 11:00am We apologize for any inconvenience to you, however your provider would still like to see you. Please call us at [phone] to reschedule your appointment. Sincerely, Appointment Staff DISCHARGE INSTRUCTION Observed: 12/26/2017 Status: F Source: [place] 11:20 PM [facility] REPOSITORY [facility] Medical Records Department [facility] [place] [address] Discharge Instruction 12/26/17 2319 MR#: [id number] Acct: [id number] Name: JORGE ROQUE Rep #: [id number] : 1975 42 From: Radha Aaron MD [...] your Primary Care Provider. Call [facility] ([phone]) or report to the closest Emergency Room. Call 911 if necessary. 12/26/172319 <Electronically signed by Radha Aaron MD> Date Radha Aaron MD Cosigner Signature (If Indicated): Date CC: Jameson Herrera MD EMERGENCY DEPARTMENT Observed: 12/26/2017 Status: F Source: [place] SUMMARY 11:19 PM [facility] REPOSITORY [facility] Medical Records Department [address] [place] [address] Emergency Department Summary 12/26/17 1726 MR#: [id number] Acct: [id number] Name: JORGE ROQUE Rep #: [id number] : 1975 42 From: Radha Aaron MD [...] renal mass This note was generated with [employer] dictation software. It may contain incorrect words, [...] your Primary Care Provider. Call [facility] ([phone]) or report to the closest Emergency Room. Call 911 if necessary. 12/26/17 2319 <Electronically signed by Radha Aaron MD> Date Radha Aaron MD Cosigner Signature (If Indicated): Date CC: Jameson Herrera MD BRAIN/HEAD WITHOUT Observed: 12/26/2017 Status: F Source: [place] CONTRAST 5:26 PM [facility] REPOSITORY [facility] Imaging Services [address] [place] [address] Brain/Head without Contrast MR#: [id number] Acct: [id number] Name: JORGE ROQUE Rep #: [id number] : 1975 M 42 From: Ethan Jamil MD PCP: Jameson Herrera MD Status: REG ER Study: Brain/Head without Contrast Date of Exam: 12/26/17 Exam# [id number] Ordering Dr: Radha Aaron MD STUDY: CT [...] CC: Radha Aaron MD; Jameson Herrera MD Bobbin Presser: Signed ABDOMEN/PELVIS W IV CONT Observed: 12/26/2017 Status: F Source: [place] ONLY 5:26 PM [facility] REPOSITORY [facility] Imaging Services [address] [place] [address] Abdomen/Pelvis W IV Cont ONLY MR#: [id number] Acct: [id number] Name: JORGE ROQUE Rep #: [id number] : 1975 M 42 From: Ethan Jamil MD PCP: Jameson Herrera MD Status: REG ER Study: Abdomen/Pelvis W IV Cont ONLY Date of Exam: 12/26/17 Exam# [id number] Ordering Dr: Radha Aaron MD STUDY: CT [...] CC: Radha Aaron MD; Jameson Herrera MD Bobbin Presser: Signed CHEST WITH CONTRAST Observed: 12/26/2017 Status: F Source: [place] 5:26 PM [facility] REPOSITORY [facility] Imaging Services [address] [place] [address] Chest WITH Contrast MR#: [id number] Acct: [id number] Name: JORGE ROQUE Rep #: [id number] : 1975 M 42 From: Zayda Vyas MD PCP: Jameson Herrera MD Status: REG ER Study: Chest WITH Contrast Date of Exam: 12/26/17 Exam# [id number] Ordering Dr: Radha Aaron MD STUDY: CT [...] CC: Radha Aaron MD; Jameson Herrera MD Bobbin Presser: Signed SR-ABDOMEN/PELVIS W IV CONT Observed: 12/26/2017 Status: F Source: [facility] IMPORT 12:00 AM [facility] MAIN [place] REPOSITORY Images were obtained outside of [facility] [id number] ALLERGIES ALLERGIES DATE TYPE / NAME / CODE REACTION SEVERITY SOURCE CODE 11/02/2018 Drug hydrocortisone/F0060 Rash Unknown Jesus Allergy/41 84132(RXNORM) [facility] 0649324([facility] OMED CT) Repository 11/02/2018 Drug tramadol/[id number]( Nausea Unknown Jesus Allergy/41 RXNORM) [facility] 3537978([facility] OMED CT) Repository 04/22/2018 DRUG HYDROCORTISONE RASH [address] 8371387(SN Repository OMED CT) 04/22/2018 DRUG TRAMADOL GI UPSET [address] 6233801( Repository OMED CT) NG/7698463 NO KNOWN ALLERGIES [facility] 06([facility]) Repository Drug NO KNOWN ALLERGIES [facility] Class/4195 [facility] [address](SNOM Repository ED CT) ENCOUNTERS ENCOUNTERS ADMIT/DISCHARGE ACCOUNT NUMBER ADMITTING ENCOUNTER LOCATION SOURCE CLASS 11/02/2018/11/02/20 [id number] Emergency [address] ding:ED Repository 10/15/2018/10/15/20 [id number] Emergency [address] ding:ED Repository 10/15/2018/10/16/20 [id number] Ambulatory [address] Repository 10/12/2018/11/27/19 [id number] Ambulatory [address] [place] Repository 09/23/2018/09/23/20 [id number] Ambulatory [address] [place] Repository 09/23/2018/09/23/20 [id number] Ambulatory [address] [place] Repository 09/15/2018/09/16/20 [id number] Ambulatory [address] Repository 09/10/2018/09/10/20 [id number] Emergency [place] [address] ding:ED Repository 09/06/2018/09/06/20 [id number] Emergency [place] [address] ding:ED Repository 09/03/2018/09/04/20 [id number] Ambulatory [address] Repository 08/26/2018/08/26/20 [id number] Emergency [place] ding:ED Repository 08/07/2018/08/07/20 [id number] Emergency [address] ding:ED Repository 07/14/2018/07/14/20 [id number] Emergency [place] [address] ding:ED Repository 07/13/2018/07/15/20 [id number] Ambulatory [address] Repository 07/06/2018/07/06/20 [id number] Emergency [place] ding:ED Repository 07/06/2018/07/07/20 [id number] Ambulatory [address] Repository 06/23/2018/06/23/20 [id number] Emergency [place] [address] ding:ED Repository 06/18/2018/06/18/20 [id number] Emergency [place] [address] ding:ED Repository 06/02/2018/06/02/20 [id number] Ambulatory Building:[address] One Repository 06/02/2018/06/02/[id number] Carla Chopra [place] [address] Hali valleing:[address] Carla George DeptRoom: Hospitals A1E V7MKAvu: Repository A1E A1ED05 06/02/2018/06/03/20 [id number] Ambulatory [address] Repository 05/29/2018/05/29/20 [id number] Ambulatory BMSBuilding: [place] [facility] Repository 05/20/2018/05/20/20 [id number] Emergency [place] ding:ED Repository 05/10/2018/05/10/20 [id number] Emergency [place] ding:ED Repository 05/06/2018/05/06/20 [id number] Emergency [place] ding:ED Repository 04/30/2018/04/30/20 [id number] Emergency [place] [address] ding:ED Repository 04/22/2018/06/02/20 [id number] Ambulatory [address] Repository 04/20/2018/04/20/20 [id number] Emergency BBuilding:ER Fox [address] [place] [address] Repository 04/20/2018/04/20/20 [id number] Emergency [place] [address] ding:ED Repository 04/14/2018/04/15/20 [id number] Ambulatory [address] Repository 04/09/2018/04/09/20 [id number] Ambulatory [address] Repository 04/06/2018/04/06/20 [id number] Ambulatory [address] Repository 04/02/2018/04/02/20 [id number] Emergency [place] [address] ding:ED Repository 03/19/2018/03/19/20 [id number] Ambulatory [address] Repository 03/15/2018/03/15/20 [id number] Emergency [place] ding:ED Repository 03/09/2018/03/11/20 [id number] [place] Ambulatory [address] Repository 03/09/2018/03/11/20 [id number] [place] Inpatient [address] MEDICAL Repository CENTERBuildi nRoom: 5123Bed: 03/05/2018 [id number] Ambulatory [facility] Repository 03/05/2018/03/05/20 [id number] Ambulatory [address] MEDICAL Repository CENTERBuildi ng:AKLBB 03/05/2018 [id number] Ambulatory [facility] Repository 03/05/2018 [id number] Ambulatory [facility] MEDICAL Repository CENTERBuildi ng:AKXRB 03/05/2018 [id number] Ambulatory [facility] Repository 03/05/2018 [id number] Ambulatory [facility] MEDICAL Repository CENTERBuildi ng:AKPSTB 03/02/2018 [id number] Ambulatory [facility] MEDICAL Repository CENTERBuildi ng:AKPSTB 02/20/2018/02/25/20 [id number] Ambulatory [address] Repository 02/16/2018 [id number] Ambulatory [facility] Repository 02/08/2018/02/09/20 [id number] Emergency [address] ding:ED Repository 02/06/2018 [id number] Ambulatory [facility] Repository 01/27/2018/01/28/20 [id number] Ambulatory [address] Repository 01/27/2018/01/28/20 [id number] Ambulatory [address] MEDICAL Repository CENTERBuildi ng:AKUF 01/20/2018 [id number] Ambulatory [facility] Repository 01/06/2018/01/08/20 [id number] Ambulatory [address] Repository 12/26/2017/12/26/19 [id number] Emergency [address] ding:ED Repository PAYERS PAYERS ENCOUNTER GUARANTOR PAYER SUBSCRIBER SOURCE 11/02/2018 JORGE Whittaker Primary NOT GIVENKYAW [id number] Insurance:SELF PAY [place], [place] Number: Effective Repository [id number]: 330) Date:2018-11-02 [phone] () 10/15/2018 JORGE Whittaker Primary JORGE [id number] Insurance:BUCKEYE CONAWAYDOB: [facility] [id number] PLANPolicy Number: Repository [address]Ptr: 330 [id number] [phone] (HP) Date:2544-54-73FR [address] [place] [address] 88672GR: 10/15/2018 Secondary NOT GIVENUNK Jesus Insurance:SELF PAY [facility] Number: Effective Repository Date:2018-10-15 09/10/2018 JORGE J Primary JORGE J [place] [id number] Insurance:BUCKEYE CONAWAYDOB: [facility] [id number] PLANPolicy Number: Repository [id number]: 330 [id number] [phone] (HP) Date:9578-83-02XM [address] [place] [address] 17080OK: 09/10/2018 Secondary NOT GIVENUNK Jesus Insurance:SELF PAY [facility] Number: Effective Repository Date:2018-09-10 09/06/2018 JORGE J Primary JORGE J [place] [id number] Insurance:BUCKEYE CONAWAYDOB: [facility] [id number] [address] StreetPolic Number: Repository [address]Izu: 330 [id number] [phone] (HP) Date:4807-04-41LO [address] [place] [address] 95206GV: 09/06/2018 Secondary NOT GIVENUNK Jesus Insurance:SELF PAY [facility] Number: Effective Repository Date:2018-09-06 08/26/2018 JORGE J Primary JORGE J [place] [id number] Insurance:BUCKEYE CONAWAYDOB: [facility] [id number] StreetP[address] Number: Repository [id number]: 330 [id number] [phone] (HP) Date:5987-59-05RH [address] [place] [address] 04573SC: 08/26/2018 Secondary NOT GIVENUNK Jesus Insurance:SELF PAY [facility] Number: Effective Repository Date:2018-08-26 08/07/2018 JORGE J Primary JORGE Whittaker [place] [id number] Insurance:BUCKEYE CONAWAYDOB: [facility] [id number] [facility] CenterP[facility] Number: Repository [id number]: 330 [id number] [phone] () Date:3782-90-39WY [address] [place] [address] 45273KI: 08/07/2018 Secondary NOT GIVENUNK [place] Insurance:SELF PAY [facility] Number: Effective Repository Date:2018-08-07 07/14/2018 JORGE J Primary JORGE J Jesus [id number] Insurance:BUCKEYE CONAWAYDOB: [facility] [id number] Regional Medical Centeric Number: Repository [id number]: 330 [id number] [phone] () Date:6432-93-71LE [address] [place] [address] 50211AF: 07/14/2018 Secondary NOT GIVENUNK Jesus Insurance:SELF PAY [facility] Number: Effective Repository Date:2018-07-14 07/06/2018 JORGE J Primary JORGE J Jesus [id number] Insurance:BUCKEYE CONAWAYDOB: [facility] [id number] Number: Repository [id number]: 330 [id number] [phone] () Date:9800-64-32XK [address] [place] [address] 85755EH: 07/06/2018 Secondary NOT GIVENUNK [place] Insurance:SELF PAY [facility] Number: Effective Repository Date:2018-07-06 06/23/2018 JORGE J Primary JORGE J [place] [id number] Insurance:BUCKEYE CONAWAYDOB: [facility] [id number] PLANPolicy Number: Repository [address]Iqd: 330 [id number] [phone] (HP) Date:8853-61-86IB [address] LIRIANO [address]RO: 06/23/2018 Secondary NOT GIVENUNK Jesus Insurance:SELF PAY [facility] Number: Effective Repository Date:2018-06-23 06/18/2018 JORGE J Primary JORGE J [place] [id number] Insurance:BUCKEYE CONAWAYDOB: [place] [facility] [id number], [place] PLANPolicy Number: Repository [address]Omf: 330 [id number] [phone] (HP) Date:6725-24-49VK [address] [facility] [place] [address]YX: 06/18/2018 Secondary NOT GIVENUNK [place] Insurance:SELF PAY [facility] Number: Effective Repository Date:2018-06-18 06/02/2018 Primary JORGE J [facility] Insurance:Flora CONAWAYDOB: [facility] [id number] PlanPolicy Number: [address] [facility] Repository [id number] [place] Date:Plan [address]Rsi: (330) Name:[facility] [phone] () [address] [place] [address] [place] [address]HN: 05/29/2018 JORGE J Primary JORGE J Jesus [id number] Insurance:BUCKEYE CONAWAYDOB: [facility] JUDY [facility] [id number] PLANPolicy Number: Repository [id number]: 330 [id number] [phone] (HP) Date:[id number] [address]I MONTEMAYOR [address]CB: 05/29/2018 Secondary NOT GIVENUNK [place] Insurance:SELF PAY [facility] Number: Effective Repository Date:2018-05-27 05/20/2018 Jorge J Primary Jorge J Jesus [id number] Insurance:BUCKEYE ConawayDOB: [facility] [id number] PLANPolic Number: Repository [id number]: 330 [id number] [phone] (HP) Date:9435-98-42XH [address] [place] [address] 13465SH: 05/20/2018 Secondary NOT GIVENUNK [place] Insurance:SELF PAY [facility] Number: Effective Repository Date:2018-05-20 05/10/2018 Jorge Whittaker Primary Jorge Whittaker [place] [id number] Insurance:BUCKEYE ConawayDOB: [facility] [id number] Baptist Medical CenterPolicy Number: Repository [id number]: 330 [id number] [phone] (HP) Date:5873-99-96BG [address] [place] [address] 81905SI: 05/10/2018 Secondary NOT GIVENUNK Jesus Insurance:SELF PAY [facility] Number: Effective Repository Date:2018-05-10 05/06/2018 Jorge Whittaker Primary Jorge Whittaker Jesus [id number] Insurance:BUCKEYE ConawayDOB: [facility] [id number] Baptist Medical CenterP[facility] Number: Repository [id number]: 330 [id number] [phone] (HP) Date:5811-29-75NQ [address] [place] [address] 80581KH: 05/06/2018 Secondary NOT GIVENUNK Jesus Insurance:SELF PAY [facility] Number: Effective Repository Date:2018-05-06 04/30/2018 Jorge J Primary Jorge Goreoster [id number] Insurance:BUCKEYE ConawayDOB: [facility] [id number] Baptist Medical CenterPolic Number: Repository [id number]: 330 [id number] [phone] (HP) Date:1308-11-26NW [address] [place] [address] 33871AI: 04/30/2018 Secondary NOT GIVENUNK [place] Insurance:SELF PAY [facility] Number: Effective Repository Date:2018-04-30 04/20/2018 JORGE Whittaker Primary JORGE Whittaker [facility] CONAWAYDOB: Insurance:BUCKEYE CONAWAYDOB: [facility] HEALTH PLANPolicy [id number] Repository [facility] Number: [address] [facility], [place] [id number] HOME RDBURBANK, [address]Foq: (330) Date:2018-04-17 - [place] [address]Xvo: [phone] (HP) [id number] Name:ERNATA Martinez ()Tel: [phone]) [phone] [place] [address] [phone] ) [id number]: 04/20/2018 Jorge Whittaker Primary Jorge Whittaker Jesus [id number] Insurance:BUCKEYE ConawayDOB: [facility] [id number] Baptist Medical CenterPolicy Number: Repository [id number]: 330 [id number] [phone] () Date:4737-26-49XY [address] [place] [address] 45890EP: 04/20/2018 Secondary NOT GIVENUNK Jesus Insurance:SELF PAY [facility] Number: Effective Repository Date:2018-04-20 04/02/2018 Jorge Whittaker Primary Jorge Whittaker Jesus [id number] Insurance:BUCKEYE ConawayDOB: [facility] [id number] Baptist Medical CenterPolicy Number: Repository [id number]: (703) [id number] [phone] () Date:6404-42-24HJ [address] [place] [address] 92909CX: 04/02/2018 Secondary NOT GIVENUNK [place] Insurance:SELF PAY [facility] Number: Effective Repository Date:2018-04-02 03/15/2018 Jorge J Primary Jorge Whittaker Jesus [id number] Insurance:BUCKEYE ConawayDOB: Community [address]Y [address]APT [id number] [facility] HospitalSARAHvince LING [facility] Number: Repository [id number]: 330 [id number] [phone] (HP) Date:0906-39-84UG [address] [place], [place] [address]BHARTI ARMANDO [address]IJ: 03/15/2018 Secondary NOT GIVENUNK Jesus Insurance:SELF PAY [facility] Number: Effective Repository Date:2018-03-15 03/09/2018 JORGE J Primary JORGE J [facility] CONAWAYDOB: Insurance:BUCKEYE CHP CONAWAYDOB: [facility] MEDICAIDPolicy [id number] Repository [address] Number: [place] [id number] [id number]: (330) Date: [phone] (HP) 03/05/2018 JROGE J Primary JORGE J [facility] CONAWAYDOB: Insurance:BUCKEYE CHP CONAWAYDOB: [facility] MEDICAIDPolicy [id number] Repository [address] Number: [place] [id number]: (330) Date: [phone] (HP) 03/05/2018 JORGE J Primary JORGE J [facility] CONAWAYDOB: Insurance:BUCKEYE CHP CONAWAYDOB: [facility] MEDICAIDPolicy [id number] Repository [address] Number: [place] [id number] [id number]: (330) Date: [phone] (HP) 03/05/2018 JORGE J Primary JORGE J [facility] CONAWAYDOB: Insurance:BUCKEYE CHP CONAWAYDOB: [facility] MEDICAIDPolicy [id number] Repository [address] Number: [place] [id number] [id number]: (330) Date: [phone] (HP) 03/02/2018 JORGE J Primary JORGE Whittaker [facility] CONAWAYDOB: Insurance:BUCKEYE CHP CONAWAYDOB: [facility] MEDICAIDPoly [id number] Repository [address] Number: VINCE HERNANDEZ [id number]: (330) Date: [phone] (HP) 02/08/2018 Jorge Whittaker Primary Jorge Whittaker Jesus [id number] Insurance:BUCKEYE ConawayDOB: [facility] [id number], [place] PLANPolicy Number: Repository [id number]: (330) [id number] [phone] (HP) Date:7805-52-48HF [address] [place], [place] [address]BHARTI ARMANDO [address]01[address]AC: 02/08/2018 Secondary NOT GIVENUNK Jesus Insurance:SELF PAY [facility] Number: Effective Repository Date:2018-02-08 01/27/2018 JORGE Whittaker Primary JORGE Whittaker [facility] CONAWAYDOB: Insurance:BUCKEYE CHP CONAWAYDOB: [facility] MEDICAIDPolicy [id number] Repository [address] Number: VINCE HERNANDEZ [id number]: (330) Date: [phone] (HP) 12/26/2017 Jorge Whittaker Primary Jorge Whittaker [facility] [id number] Insurance:BUCKEYE ConawayDOB: [facility] [id number] [place] PLANPolicy Number: Repository [id number]: (330 [id number] [phone] (HP) Date:4583-48-16KD BOX [facility] HospitalBH[facility] M[facility]EMAYOR [address]YM: 12/26/2017 Secondary NOT GIVENUNK Jesus Insurance:SELF PAY [facility] Number: Effective Repository Date:2017-12-26
== END 2018-11-02 21:24 | disposition home or self-care (01) ==
PROVIDERS: Emergency Provider Emergency Medicine; Family Provider Family Medicine; PCP Family Medicine
DX: F32.9 Major depressive disorder, single episode, unspecified (principal)
CPT/HCPCS: 99283

== ENCOUNTER 2018-12-10 20:56 | Emergency (ER) | payer MEDICAID, SELFPAY ==
[2018-12-10 20:57] VITALS: BP 158/104; PULSE 98; RESP 16; TEMP 37.7; O2SAT 97; BMI 60.7
--- NOTE | 2018-12-10 21:08 | CT_ITS ---
STUDY: CT ABDOMEN AND PELVIS WITHOUT CONTRAST REASON FOR EXAM: Male, 43 years old. Right-sided pain and bulging. History of hernia. History of renal cancer with partial right nephrectomy. RADIATION DOSAGE (If Supplied By Facility): CTDIvol = ( 24.18 ) mGy, DLP = ( 1492.16 ) mGycm TECHNIQUE: Transaxial images were obtained from the dome of the diaphragm to the symphysis pubis without oral contrast, and without intravenous contrast. Sagittal and coronal images were reconstructed. Individualized dose optimization techniques were used for this CT. COMPARISON: July 06, 2018 FINDINGS: The visualized lung bases are unremarkable. The visualized portions of the heart are within normal limits. There is hepatomegaly with diffuse hepatic enlargement. Normal gallbladder and extrahepatic biliary system. There is moderate splenomegaly. Normal pancreas. Normal bilateral adrenal glands. Postoperative changes in the mid aspect of the right kidney. Normal left kidney. Normal visualized stomach. No dilated loops of small intestine. There are multiple colonic diverticula consistent with diverticulosis. There is non-visualization of the appendix. Normal abdominal aorta. Normal inferior vena cava. Normal retroperitoneum. Normal urinary bladder. There is no free fluid in the abdomen or pelvis. There is increased size of right lower abdominal wall hernia containing loops of small bowel.. Normal osseous structures. CT/Abdomen/Pelvis without Cont IMPRESSION: Increased size of right lower abdominal wall hernia containing small bowel. No obstruction. Colonic diverticulosis. Hepatosplenomegaly. Postoperative changes of the right kidney. Electronically Signed: Joby Blake MD at 21:48 EST , Service support ,
--- NOTE | 2018-12-10 21:09 | ED.VISSUMM ---
- ER Visit Summary Date of Service: 12/10/18 Chief Complaint: fall, abdominal pain History of Present Illness: The patient is a 43 M who presents for right-sided abdominal pain after a fall yesterday. Patient states that he slipped on ice and fell on the sidewalk, striking the right side of his abdomen on the corner of the concrete. He denies any head injury or loss of consciousness. Denies any neck or back injury. Complaining of the right-sided pain, with sharp radiation to the left if he palpates the area of discomfort. He states it is swollen today, and he is concerned it may be a hernia. He is taking ibuprofen without relief. Has history of partial nephrectomy on the right secondary to kidney cancer. Also has a right-sided hernia. Physical Examination: Vital signs: afebrile, hemodynamically stable, no hypoxia on room air General: well nourished, well developed,BMI of 60, in no distress Skin: warm, dry, no rash, no pallor HEENT: normocephalic and atraumatic; PERRL, EOMI, moist mucous membranes, neck is supple, no midline tenderness deformities or step-offs, full active range of motion Cardiovascular: regular rate and rhythm without murmurs, no peripheral edema, 2+ pulses all distal extremities Respiratory: No increased work of breathing, lungs are clear to auscultation bilaterally, no rales, rhonchi or wheezing Abdominal: Abdomen is soft, obese, tender in the right mid region, no noted hematoma, abrasion, or obvious contusion. Tenderness on the left as well. normoactive bowel sounds, no guarding or rebound, exam limited secondary to body habitus MSK: Moves all extremities, no deformities, normal strength Neuro: Awake and alert, oriented ?4. No facial droop, sensation and motor function intact and symmetric Test Results: Abnormal Lab Results 12/10/18 12/10/18 21:15 21:15 WBC 9.7 RBC 5.09 Hgb 14.5 Hct 44.4 MCV 87.2 MCH 28.5 MCHC 32.7 RDW 14.0 RDW Differential 44.6 H Plt Count 205 MPV 10.5 Immature Gran % (Auto) 0.200 Neut % (Auto) 74.5 H Lymph % (Auto) 17.6 L Gregg % (Auto) 6.8 Eos % (Auto) 0.8 Baso % (Auto) 0.1 Absolute Neuts (auto) 7.2 Absolute Lymphs (auto) 1.71 Total Counted Not Reportable Sodium 139 Potassium 4.1 Chloride 104 Carbon Dioxide 25.0 Anion Gap 10 BUN 16 Creatinine 1.65 H Estim Creat Clear Calc 53.97 Est GFR (MDRD) Af Amer 59 L Est GFR (MDRD) Non-Af 49 L BUN/Creatinine Ratio 9.7 L Glucose 82 Calcium 8.3 L Total Bilirubin 0.30 AST 16 ALT 24 Alkaline Phosphatase 122 H Total Protein 7.4 Albumin 3.5 Globulin 3.9 Albumin/Globulin Ratio 0.9 Lipase 73 Clinical Impression(s) from Imaging Studies Abdomen/Pelvis CT 12/10/18 21:08 IMPRESSION: Increased size of right lower abdominal wall hernia containing small bowel. No obstruction. Colonic diverticulosis. Hepatosplenomegaly. Postoperative changes of the right kidney. Electronically Signed: Joby Blake MD at 21:48 EST , Service support , Medications Given Discontinued Medications Hydrocodone Bitart/Acetaminophen ([place] 5mg-325mg) 1 tablet PO X1 ONE Stop: 12/10/18 22:51 Last Admin: 12/10/18 23:08 Dose: 1 tablet Sodium Chloride () 1,000 mls @ 1,000 mls/hr IV .Q1H ONE Stop: 12/10/18 22:06 Last Admin: 12/10/18 21:37 Dose: 1,000 mls/hr Morphine Sulfate () 4 mg IV X1 ONE Stop: 12/10/18 21:08 Last Admin: 12/10/18 21:37 Dose: 4 mg Ondansetron HCl (Zofran) 4 mg IV X1 ONE Stop: 12/10/18 21:08 Last Admin: 12/10/18 21:37 Dose: 4 mg Emergency Department Course and Treatment: Patient was given IV fluids, morphine and Zofran for symptomatic control. He is presenting for trauma to the abdomen, but now swelling and pain today which he is concerned may be his hernia. Because exam is difficult secondary to body habitus, CT scan of the abdomen and pelvis was performed. Contrast was not used due to patient's history of renal cancer and nephrectomy. There was no traumatic injury noted, the patient did have a larger right abdominal wall hernia that contains loops of small bowel without any evidence of obstruction. On reevaluation, patient's pain was much better. I attempted manual reduction of the hernia, but due to patient's body habitus, I was unable to definitively palpate it. Because patient had no evidence of obstruction on his CT scan, he was strongly advised to follow-up with his surgeon as soon as possible to discuss repair. He had a repair done on the left side. Patient agreed with this plan. He stated he cannot take ibuprofen or naproxen because of his kidney function, and thus he was given a small prescription for norco for pain control. Patient discharged home well-appearing, ambulating without difficulty and pain improved. Treatment Plan: [] Disposition: [] Impression: Right abdominal wall hernia This note was generated with [employer] dictation software. It may contain incorrect words, spelling, and punctuation that were not noted in review of the chart prior to signing ED Disposition - Plan for ED Patient: Disposition: Home or Assisted Living Chief Complaint: Fall Instructions: What Is a Hernia? Prescriptions: Hydrocodone Bitart/Apap 5-325 [[place] 5MG-325MG] 1 tab PO Q6H PRN PRN 3 Days #8 tab PRN Reason: Pain Referrals: Rodger Brasher MD [STAFF PHYSICIAN] - As soon as possible Jameson Sood MD [Primary Care Provider] - Additional Instructions: Follow up with Dr. Brasher as soon as possible to discuss your worsening hernia and pain. If you have any worsening of your condition or any new concerning symptoms, please return immediately to the emergency department for another evaluation.
[2018-12-10 21:30] LABS: Absolute Lymphocyte Count 1.71 X10^3/ul (0.83-4.51); Absolute Neutrophil Count 7.2 X10^3/uL (2.0-7.7); Basophil# 0.01 X10^3/uL; Basophil% 0.1 % (0-1); Eosinophil# 0.08 X10^3/uL; Eosinophils% 0.8 % (0-5); Hematocrit 44.4 % (40-54); Hemoglobin 14.5 g/dl (13.0-16.5); Lymphocyte # 1.71 X10^3/ul (4.0); Lymphocyte % 17.6 % (19-41); Mean Corp Hgb Conc 32.7 g/gl (32-36); Mean Corpuscular Hgb 28.5 pg (27.0-32.0); Mean Corpuscular Volume 87.2 fL (80-94); Mean Platelet Vol. 10.5 fl (6.2-12.0); Monocyte# 0.66 X10^3/uL; Monocyte% 6.8 % (0-10); Neutrophil # 7.21 X10^3/uL (2.7-7.7); Neutrophil % 74.5 % (47-70); POSITIVE COUNT NO; POSITIVE DIFFERENTIAL NO; POSITIVE MORPHOLOGY NO; Platelet Count 205 K/mm3 (150-450); RBC Distribution Width SD 44.6 fl (35.1-43.9); Red Blood Count 5.09 M/mm3 (4.6-6.2); White Blood Count 9.7 K/mm3 (4.4-11.0)
[2018-12-10] MEDS: Ondansetron 4 MG/2 ML Vial IV (21:37)
[2018-12-10] MEDS: Morphine 4 MG/ML Syringe IV (21:37)
[2018-12-10] MEDS: 0.9% Normal Saline 1,000 ML 1000 ML IV (21:37)
[2018-12-10 21:45] LABS: ALB/GLOB Ratio 0.9 RATIO (0.9-2.4); AST(SGOT) 16 U/L (15-37); Alanine Aminotransfer ALT/SGPT 24 U/L (16-61); Albumin, Serum 3.5 g/dL (3.2-5.0); Alkaline Phosphatase 122 U/L (45-117); Anion Gap 10 (5-15); BUN 16 mg/dL (7-18); BUN/Creat Ratio 9.7 RATIO (10-20); Calcium,Total 8.3 mg/dL (8.5-10.1); Chloride 104 mmol/L (98-107); Creatinine, Serum 1.65 mg/dL (0.70-1.30); EST Glomerular Filtration Rate 49 mL/min (>60); Est Glom Filt Rate - Afr Amer 59 mL/min (>60); Estimated Creatinine Clearance 53.97 ml/min; Globulin 3.9 g/dL (2.2-4.2); Glucose 82 mg/dL (74-106); Lipase 73 U/L (73-393); Potassium 4.1 mmol/L (3.5-5.1); Protein, Total 7.4 g/dL (6.4-8.2); Sodium Level 139 mmol/L (136-145)
--- NOTE | 2018-12-10 22:54 | DCINST.ED_ITS ---
ED Disposition - Plan for ED Patient: Disposition: Home or Assisted Living Chief Complaint: Fall Instructions: What Is a Hernia? Prescriptions: Hydrocodone Bitart/Apap 5-325 [[place] 5MG-325MG] 1 tab PO Q6H PRN PRN 3 Days #8 tab PRN Reason: Pain Referrals: Jameson Sood MD [Primary Care Provider] - Rodger Brasher MD [STAFF PHYSICIAN] - As soon as possible Additional Instructions: Follow up with Dr. Brasher as soon as possible to discuss your worsening hernia and pain. If you have any worsening of your condition or any new concerning symptoms, please return immediately to the emergency department for another evaluation.
[2018-12-10] MEDS: HYDROcodone Bitartrate/Apap 5/325 Tablet PO (23:08)
== END 2018-12-10 23:10 | disposition home or self-care (01) ==
PROVIDERS: Emergency Provider Emergency Medicine; Family Provider Family Medicine; PCP Family Medicine
DX: K43.9 Ventral hernia without obstruction or gangrene (principal); R10.9 Unspecified abdominal pain; E66.9 Obesity, unspecified; Z68.44 Body mass index [BMI] 60.0-69.9, adult; Z85.528 Personal history of other malignant neoplasm of kidney; Z90.5 Acquired absence of kidney
CPT/HCPCS: 74176; 80053; 83690; 85025; 96361; 96374; 96375; 99284; J7030; A4216; J2405

== ENCOUNTER 2018-12-21 17:30 | Observation (INO) | payer MEDICAID, SELFPAY ==
[2018-12-17 14:43] VITALS: BMI 60.7
[2018-12-18 14:41] VITALS: BP 146/79; PULSE 75; RESP 18; TEMP 36.6; O2SAT 96; BMI 59.7
[2018-12-21] VITALS (11 sets, daily range): BP systolic 120–142; BP diastolic 74–89; PULSE 60–87; RESP 16–18; TEMP 36.7–37.3; O2SAT 94–99; BMI 57.9
--- NOTE | 2018-12-21 13:00 | HERN_PTH ---
PATIENT: EMY KU LOC: MS3 U#:[id number] AGE/SX: 43/M ROOM: MS313 RE12/21/[address]: Dr. Ryan Meza MD : 1975 BED: 1 DIS: 12/22/2018 SPEC #: [id number] RECD: 12/22/18 07:22 STATUS: BENJIE REShailesh #: [id number] MARGY: 12/21/18 13:[address]: Ryan Meza DEPT: SURGICAL PATHOLOGY RECD BY: Braulio Leslie ENTERED: 12/22/18 10:25 SP TYPE: Hernia OTHR DR: Dr. Jameson Sood MD Tissues: HERNIA Procedures: Surgery Specimen Level II HEADER OPERATION: Hernia, open, incarcerated ventral/incisional repair with mesh PRE-OP DIAGNOSIS: Irreducible/incisional ventral hernia TISSUE SUBMITTED: Ventral hernia sac MICROSCOPIC DIAGNOSIS Ventral hernia sac, herniorrhaphy: Fibrosis, vascular ectasia and focal reactive mesothelium. AM:willie 12/23/18 MICROSCOPIC DESCRIPTION Slides are reviewed. GROSS DESCRIPTION Received in fixative is one container labeled with the patient's name and designated hernia sac. The specimen consists of an irregular fragment of light pink-salinas saccular structure measuring 12 x 7.5 x 5 cm. Serial sections reveal pink-yellow fibrofatty cut surfaces. No distinct mass lesion is identified. Patient Financial Rep sections are submitted in one cassette. / AM:willie 12/22/18 TC:3 CPT: 73139
[2018-12-21] MEDS: Bupiv/Epi 0.25% 30 ML Vial (15:30)
--- NOTE | 2018-12-21 17:03 | PCM.OPRPT ---
Problem List (1) Incarcerated incisional hernia Status: Acute Report of Operation Date of Procedure: 12/21/18 Pre-Operative Diagnosis: Incarcerated incisional ventral hernia Post-Operative Diagnosis: Same Surgery/Procedure Performed:: 1. Incarcerated incisional ventral hernia repair with mesh. 2. Right lateral component separation Specimen's removed: Hernia sac Drains: MEMO to bulb suction Description of Procedure: The patient was brought back to the operating room and general anesthesia was induced. The abdomen was prepped and draped in usual sterile fashion. A vertical incision was made lateral on the abdominal sidewall just over the hernia. This was deepened with electrocautery. Once the hernia sac was identified it was bluntly dissected free from its surrounding tissue. Using electrocautery the fascia layer was reached. Using a combination of blunt dissection and electrocautery dissection the hernia sac was circumferentially freed. The hernia sac was entered at the level of the fascia and resected. There were a few adhesions from the intra-abdominal contents to the hernia sac. The hernia contents were easily reduced into the abdomen the anterior fascial defect appeared to be about 4-5 cm in diameter. I performed a lateral component release of the external oblique. The external oblique was identified and elevated and a small boogie was made with the electrocautery. Using a right angle to elevate the external oblique fascia it was divided superior to inferior. Even doing this component separation was still unable to fully bring the anterior fascia together. This was under high amount of tension. Instead I decided to close the posterior sheath. This was done with interrupted [id number] 0 Prolene sutures. This brought the posterior rectus sheath together very well. The rectus muscles then came together as well. Next a piece of polypropylene mesh was placed over the defect ensuring that it overlapped the edges of the fascia by a 2-3 cm on all sides. Next interrupted 0 Prolene sutures were placed in 4 corners and these were run circumferentially. This tacked the mesh to the anterior fascia circumferentially. There was no tension. Next the cavity was irrigated and suctioned. Electrocautery was used to obtain hemostasis. A 15 Belgian round drain was placed in the cavity and Nelson powder was sprayed over the mesh and component separation area. The drain was sutured into place with a 2-0 nylon suture. The deep layer of subcutaneous fat was reapproximated with interrupted 3-0 Vicryl sutures. The deep dermal was also brought together with interrupted 3-0 Vicryl sutures. The skin was closed with interrupted 4-0 Monocryl sutures. Steri-Strips and bandages were then applied. The drain was placed to bulb suction. The patient tolerated the procedure well was brought to PACU in stable condition. Grafts/Implants Used: Prolene mesh - Admit VTE Documentation VTE Mechan Device Prophylaxis: SCD's
[2018-12-21] MEDS: Ketorolac 15 MG/ML Vial IV ×2 (17:12→21:30)
[2018-12-21] MEDS: Morphine 2 MG/ML Syringe IV ×2 (20:18→23:10)
[2018-12-21] MEDS: Docusate Sodium 100 MG Capsule PO (21:30)
[2018-12-21] MEDS: 0.9% Normal Saline 1,000 ML 125 ML IV (23:11)
[2018-12-22 00:07] VITALS: PULSE 90; RESP 18; O2SAT 97
--- NOTE | 2018-12-22 02:23 | NURSING ---
PT WOKE HAVING SHARP PAINS TO THE RIGHT SIDE, PAIN MEDS GIVEN
[2018-12-22] MEDS: Morphine 4 MG/ML Syringe IV (02:28)
[2018-12-22 03:00] VITALS: BP 135/82; PULSE 90; RESP 18; TEMP 36.7; O2SAT 97
[2018-12-22] MEDS: oxyCODONE 5 MG Tablet PO ×4 (03:46→17:06)
[2018-12-22] MEDS: Acetaminophen 325 MG Tablet 650 MG PO ×2 (03:46→12:12)
[2018-12-22 06:00] VITALS: RESP 16
[2018-12-22] MEDS: Ketorolac 15 MG/ML Vial IV ×2 (06:01→15:02)
[2018-12-22 06:35] LABS: Absolute Lymphocyte Count 1.49 X10^3/ul (0.83-4.51); Absolute Neutrophil Count 7.4 X10^3/uL (2.0-7.7); Basophil# 0.01 X10^3/uL; Basophil% 0.1 % (0-1); Eosinophil# 0.11 X10^3/uL; Eosinophils% 1.1 % (0-5); Hematocrit 39.7 % (40-54); Lymphocyte # 1.49 X10^3/ul (4.0); Lymphocyte % 15.3 % (19-41); Mean Corp Hgb Conc 30.2 g/gl (32-36); Mean Corpuscular Hgb 27.5 pg (27.0-32.0); Mean Corpuscular Volume 90.8 fL (80-94); Mean Platelet Vol. 10.3 fl (6.2-12.0); Monocyte# 0.64 X10^3/uL; Monocyte% 6.6 % (0-10); Neutrophil # 7.43 X10^3/uL (2.7-7.7); Neutrophil % 76.6 % (47-70); Platelet Count 187 K/mm3 (150-450); RBC Distribution Width CV 14.2 % (11.6-14.6); RBC Distribution Width SD 47.1 fl (35.1-43.9); Red Blood Count 4.37 M/mm3 (4.6-6.2); White Blood Count 9.7 K/mm3 (4.4-11.0)
[2018-12-22 06:40] LABS: POSITIVE COUNT NO; POSITIVE DIFFERENTIAL NO; POSITIVE MORPHOLOGY NO
[2018-12-22 06:56] LABS: Anion Gap 8 (5-15); BUN 11 mg/dL (7-18); BUN/Creat Ratio 12.8 RATIO (10-20); Calcium,Total 7.5 mg/dL (8.5-10.1); Chloride 104 mmol/L (98-107); Creatinine, Serum 0.86 mg/dL (0.70-1.30); EST Glomerular Filtration Rate 103 mL/min (>60); Est Glom Filt Rate - Afr Amer 125 mL/min (>60); Estimated Creatinine Clearance 110.75 ml/min; Glucose 100 mg/dL (74-106); Potassium 4.1 mmol/L (3.5-5.1); Sodium Level 139 mmol/L (136-145)
[2018-12-22] MEDS: 0.9% Normal Saline 1,000 ML 125 ML IV ×2 (07:24→14:07)
--- NOTE | 2018-12-22 07:58 | PCM.PN.SRG ---
Patient Problems: Active and Suspected Problems (Last Reviewed 12/17/18 @ 14:41 by Lubna Velazco) Incarcerated incisional hernia (Acute) Subjective: Patient seems to be doing well this morning. He does say is passing some gas. His pain is controlled on medications. - Physical Exam General: Alert, Oriented x3, Cooperative Lungs: Normal air movement Abdomen: Soft, Non-Distended, Tender - Appropriate mild tenderness, - - MEMO sanguinous Vital Signs Temp Pulse Resp BP Pulse Ox 98.0 F 90 16 135/82 H 97 12/22/18 03:00 12/22/18 03:00 12/22/18 06:00 12/22/18 03:00 12/22/18 03:00 Oxygen Flow Rate (L/min) 2 Oxygen Delivery Method Room Air Weight: 392 lb 10.292 oz Body Mass Index (BMI) 57.9 Intake and Output for Last 24 Hours 12/20/18 12/21/18 12/22/18 23:59 23:59 23:59 Intake Total 3100 / 3100 4207 / 4207 Output Total 675 / 675 795 / 795 Balance 2425 / 2425 3412 / 3412 Laboratory Tests Past 24 Hrs 12/22/18 12/22/18 06:16 06:16 WBC 9.7 RBC 4.37 L Hgb 12.0 L Hct 39.7 L MCV 90.8 MCH 27.5 MCHC 30.2 L RDW 14.2 RDW Differential 47.1 H Plt Count 187 MPV 10.3 Immature Gran % (Auto) 0.300 Neut % (Auto) 76.6 H Lymph % (Auto) 15.3 L Crowley % (Auto) 6.6 Eos % (Auto) 1.1 Baso % (Auto) 0.1 Absolute Neuts (auto) 7.4 Absolute Lymphs (auto) 1.49 Total Counted Not Reportable Sodium 139 Potassium 4.1 Chloride 104 Carbon Dioxide 27.0 Anion Gap 8 BUN 11 Creatinine 0.86 Estim Creat Clear Calc 110.75 Est GFR (MDRD) Af Amer 125 Est GFR (MDRD) Non-Af 103 BUN/Creatinine Ratio 12.8 Glucose 100 Calcium 7.5 L Medical Necessity - Tobacco Use Smoking Status: Never smoker Assessment/Plan All Active Problems (Last Reviewed 12/17/18 @ 14:41 by Lubna C Siders) Incarcerated incisional hernia (Acute) Hx of umbilical hernia repair (Acute) Hx of partial nephrectomy (Acute) History of kidney cancer (Acute) Abdominal pain (Acute) Anxiety (Acute) Depression (Acute) Arthritis (Acute) 43-year-old male status post ventral hernia repair 1. Patient is tolerating pain with medications. I will advance him to a regular diet. Continue MEMO drain. If he is doing well this afternoon and tolerating pain with only oral medications he will be discharged home. Ryan Meza MD Pager: [facility] [address] [place] [address], [address] [place] [address] Office:
[2018-12-22] MEDS: Docusate Sodium 100 MG Capsule PO (08:28)
[2018-12-22 08:32] VITALS: BP 129/70; PULSE 77; RESP 18; TEMP 36.4; O2SAT 97
--- NOTE | 2018-12-22 11:42 | PCA ---
set pt up for am care
[2018-12-22 11:55] VITALS: BP 107/69; PULSE 80; RESP 18; TEMP 36.9; O2SAT 93
--- NOTE | 2018-12-22 13:20 | DCINST_ITS ---
Discharge Diet: Light diet - advance as tolerated Discharge Activity: Return to Normal Activity, May Shower - with the bandage in place 1-2 days after surgery. Lifting Restrictions: 20 pounds for 8 weeks. Additional Activity Instructions:: Climbing stairs is fine, walking is encouraged. Sitting in bed may be uncomfortable. Sitting up using your lateral muscles (sitting up sideways) is usually more comfortable. Do not drive, work heavy equipment of sign legal documents for 24 hours. Pain medications may cause nausea, you should typically eat light foods as you take your pain medications. Pain medications may also cause constipation. If you have difficulty with this, discuss with your doctor. Call your doctor if your incision/area has: Continuous Slow Oozing, Sudden Increased Bleeding, Increased Pain/ Swelling, Increased Redness, Foul Smelling Discharge Call your doctor if you observe: Fever of 101 or Higher Suture Line Care: Avoid Pulling/Pushing, Avoid Pinching/Bending Change Dressing in (Days):: 3 - Leave steri-strips for 1 week. May protect with a guaze bandaid. Cleanse incision/area with: Keep Dressing Clean & Dry Drain: Suction Additional Dressing/Incision Instructions:: Record daily drain output. Wear abdominal binder for 2 weeks Allergies/Adverse Reactions: Allergies hydrocortisone Allergy (Verified 12/18/18 14:19) Rash tramadol Adverse Reaction (Verified 12/18/18 14:19) Nausea Medications to take at Discharge Sertraline HCl [Zoloft] 50 mg PO DAILY 04/30/18 buPROPion XL [Wellbutrin Xl] 300 mg PO DAILY 11/02/18 Docusate Sodium [Colace] 100 mg PO BID #20 capsule 12/22/18 Oxycodone HCl/Acetaminophen [Percocet 5/325] 1 - 2 tablet PO Q4H PRN PRN 7 Days #50 tablet 12/22/18 The following prescriptions were given: Oxycodone HCl/Acetaminophen [Percocet 5/325] 1 - 2 tablet PO Q4H PRN PRN 7 Days #50 tablet PRN Reason: Pain Docusate Sodium [Colace] 100 mg PO BID #20 capsule Orders to be completed after discharge: 12 Lead EKG [[facility]] Time Frame: 12/21/18, Location: None Selected Primary Care Physician: Jameson Sood MD [Primary Care Provider] - Test Results: Test results from this visit will be discussed in further detail at your follow- up appointment, if applicable. Please Follow Up With: Ryan Meza MD When: Call to make appt for friday of this week [phone]
[2018-12-22 17:17] VITALS: BP 123/65; PULSE 80; RESP 18; TEMP 36.4; O2SAT 95
== END 2018-12-22 17:23 | disposition home or self-care (01) ==
LOC: SDC 17:31
PROVIDERS: Admitting Provider Surgery; Family Provider Family Medicine; PCP Family Medicine; Referring Provider Surgery; Visit Provider Surgery
PROC: (CPT 49560; principal; 2018-12-21 12:45)
DX: K43.0 Incisional hernia with obstruction, without gangrene (principal); F32.9 Major depressive disorder, single episode, unspecified; Z79.899 Other long term (current) drug therapy; I10 Essential (primary) hypertension; Z85.528 Personal history of other malignant neoplasm of kidney; F41.9 Anxiety disorder, unspecified; M19.90 Unspecified osteoarthritis, unspecified site
CPT/HCPCS: 00832; 49560; 49568; 36415; 80048; 85025; 88302; 96361; 96374; 96375; 96376; 99218; J7030; J7120; C1781; G0378; G0379; J2405

== ENCOUNTER → 2019-01-14 13:53 | Outpatient (CLI) | payer MEDICAID, SELFPAY ==
[2018-12-21 18:18] VITALS: BMI 57.9
--- NOTE | 2019-01-14 13:56 | CT_ITS ---
STUDY: CTA CHEST REASON FOR EXAM: Male, 43 years old. Shortness of breath/dyspnea. RADIATION DOSAGE (If Supplied By Facility): CTDIvol = ( 47.51 ) mGy, DLP = ( 2088.49 ) mGycm TECHNIQUE: The examination was performed with the intravenous administration of Isovue 370 100 IV. Post-processing of the angiographic images was performed, with multiplanar reformation and 3D reconstruction. Individualized dose optimization techniques were used for this CT. COMPARISON: Comparison is made with prior examination dated December 26, 2017. FINDINGS: Limited study due to the limited opacification of the pulmonary arteries. No obvious pulmonary embolism is seen. Normal thoracic aorta and visualized great vessels. There is no demonstrated aortic dissection. Normal heart and pericardium. Normal mediastinum. Normal hilar regions. Normal visualized trachea and bronchi. The lungs are well expanded. Normal pulmonary parenchyma. Normal pleura. Normal chest wall structures. There are degenerative changes of thoracic spine. Normal visualized upper abdomen. CT/CTA Chest W/WO Contrast IMPRESSION: Limited examination although no obvious filling defect is seen. Electronically Signed: Chencho Templeton, at 15:48 EST , Service support ,
== END ==
PROVIDERS: Family Provider Family Medicine; PCP Family Medicine; Referring Provider Surgery; Visit Provider Surgery
DX: R06.02 Shortness of breath (principal)
CPT/HCPCS: 71275; Q9967

== ENCOUNTER 2019-03-11 17:27 | Emergency (ER) | payer MEDICAID, SELFPAY ==
[2018-12-21 18:18] VITALS: BMI 57.9
[2019-03-11 17:28] VITALS: BP 128/81; PULSE 85; RESP 17; TEMP 37.2; O2SAT 96; BMI 55.9
--- NOTE | 2019-03-11 17:50 | RAD_ITS ---
STUDY: X-RAY - LEFT KNEE REASON FOR EXAM: Male, 43 years old. Knee pain after twisting injury. TECHNIQUE: 4 view(s) of the knee. COMPARISON: Prior left knee exam of August 08, 2017 FINDINGS: Negative for fracture of the distal femur, patella, proximal tibia or fibula. There is severe degenerative arthrosis of the medial femorotibial compartment with severe joint space narrowing. There is severe degenerative arthrosis of the lateral femorotibial compartment with severe joint space narrowing. There is severe degenerative arthrosis of the patellofemoral articulation. The soft tissue structures are unremarkable. RAD/Knee 4 or More Views IMPRESSION: Negative for fracture or dislocation. Severe degenerative arthrosis of the knee. Electronically Signed: Pati Umana MD at 18:19 EDT , Service support ,
--- NOTE | 2019-03-11 20:10 | ED.VISSUMM ---
- ER Visit Summary Date of Service: 03/11/19 Chief Complaint: Left knee injury History of Present Illness: The patient is a 43 M mechanical fall at work yesterday. Using a blower when he tripped fell down on his left knee. No head injuries. Using Tylenol ibuprofen last dose 6 hours ago with Tylenol. No history of gastric ulcers or kidney problems or history of similar in the past. Degenerative changes left knee saw orthopedics states too young for surgery. Denies taking any daily medicines. Physical Examination: General: Alert and oriented ?3, no acute distress HEENT: Normocephalic, atraumatic. Moist mucosa membranes Neck: supple, nontender. Cardiovascular: Regular rate and rhythm, no murmurs Respiratory: Normal breath sounds, symmetric, no distress Abdomen: Soft, nontender, nondistended Extremities: Left lower extremity: Negative logroll. Knee extensor intact. Negative varus and valgus. Mild patellar tenderness. Skin intact. Neuro: no focal neurological deficits. Test Results: Left knee x-ray: Severe degenerative changes. No fracture dislocation. Emergency Department Course and Treatment: Patient knee films obtained in triage per protocol. Evaluation no fracture dislocation. Treated with Motrin. Basis and crutches provided. Did not want to file as Worker's Comp. He will follow-up with his PCP along with given Ortho referral due to severe degenerative changes. All questions were answered. Treatment Plan: [] Disposition: Discharge Impression: 1. Left knee contusion 2. Severe degenerative changes of left knee. This note was generated with [employer] dictation software. It may contain incorrect words, spelling, and punctuation that were not noted in review of the chart prior to signing ED Disposition - Plan for ED Patient: Disposition: Home or Assisted Living Diagnosis: Contusion of left knee, Degenerative changes of left knee Instructions: ED Contusion Lower Ext Referrals: Jameson Sood MD [Primary Care Provider] - Fantasma Dennison MD [STAFF PHYSICIAN] - 5-7 Days Additional Instructions: X-ray with severe degenerative changes of the knee. Continue Tylenol Motrin. Follow-up with orthopedics for further evaluation.
--- NOTE | 2019-03-11 20:13 | ED.DCSUM_ITS ---
- ER Visit Summary Date of Service: 03/11/19 Chief Complaint: Left knee injury History of Present Illness: The patient is a 43 M mechanical fall at work yesterday. Using a blower when he tripped fell down on his left knee. No head injuries. Using Tylenol ibuprofen last dose 6 hours ago with Tylenol. No history of gastric ulcers or kidney problems or history of similar in the past. Degenerative changes left knee saw orthopedics states too young for surgery. Denies taking any daily medicines. Physical Examination: General: Alert and oriented ?3, no acute distress HEENT: Normocephalic, atraumatic. Moist mucosa membranes Neck: supple, nontender. Cardiovascular: Regular rate and rhythm, no murmurs Respiratory: Normal breath sounds, symmetric, no distress Abdomen: Soft, nontender, nondistended Extremities: Left lower extremity: Negative logroll. Knee extensor intact. Negative varus and valgus. Mild patellar tenderness. Skin intact. Neuro: no focal neurological deficits. Test Results: Left knee x-ray: Severe degenerative changes. No fracture d islocation. Emergency Department Course and Treatment: Patient knee films obtained in triage per protocol. Evaluation no fracture dislocation. Treated with Motrin. Basis and crutches provided. Did not want to file as Worker's Comp. He will follow- up with his PCP along with given Ortho referral due to severe degenerative changes. All questions were answered. Treatment Plan: [] Disposition: Discharge Impression: 1. Left knee contusion 2. Severe degenerative changes of left knee. This note was generated with [employer] dictation software. It may contain incorrect words, spelling, and punctuation that were not noted in review of the chart prior to signing ED Disposition - Plan for ED Patient: Disposition: Home or Assisted Living Diagnosis: Contusion of left knee, Degenerative changes of left knee Instructions: ED Contusion Lower Ext Referrals: Jameson Sood MD [Primary Care Provider] - Fantasma Dennison MD [STAFF PHYSICIAN] - 5-7 Days Additional Instructions: X-ray with severe degenerative changes of the knee. Continue Tylenol Motrin. Follow-up with orthopedics for further evaluation.
[2019-03-11 20:26] VITALS: RESP 18; O2SAT 98
[2019-03-11] MEDS: Ibuprofen 600 MG Tablet PO (20:26)
== END 2019-03-11 20:28 | disposition home or self-care (01) ==
LOC: ED 20:28
PROVIDERS: Emergency Provider Emergency Medicine; Family Provider Family Medicine; PCP Family Medicine
DX: S80.02XA Contusion of left knee, initial encounter (principal); W01.0XXA Fall on same level from slipping, tripping and stumbling without subsequent striking against object, initial encounter; Y93.89 Activity, other specified; Y92.89 Other specified places as the place of occurrence of the external cause; Y99.0 Civilian activity done for income or pay; M23.92 Unspecified internal derangement of left knee
CPT/HCPCS: 73564; 99283

== ENCOUNTER 2019-03-28 14:26 | Emergency (ER) | payer MEDICAID, SELFPAY ==
[2019-03-28 14:27] VITALS: BP 156/93; PULSE 89; RESP 20; TEMP 36.6; O2SAT 97; BMI 55.0
--- NOTE | 2019-03-28 15:15 | RAD_ITS ---
STUDY: X-RAY - LEFT SHOULDER REASON FOR EXAM: Male, 43 years old. Pain. TECHNIQUE: 5 view(s) of the shoulder. COMPARISON: None. FINDINGS: Normal glenohumeral articulation. There is hypertrophic osteoarthrosis of the acromioclavicular joint with inferior osseous spur formation. Normal acromion. Normal humeral head and visualized proximal humerus. There is periarticular soft tissue calcification consistent with a calcific tendinitis. There is no demonstrated fracture. Normal visualized pulmonary apex. RAD/Shoulder min 2 Views IMPRESSION: No acute fracture or dislocation. Prominent AC joint degenerative disease. Calcific tendinitis. Electronically Signed: Vini Lucas MD at 16:18 EDT , Service support ,
[2019-03-28] MEDS: HYDROcodone Bitartrate/Apap 5/325 Tablet PO (16:13)
--- NOTE | 2019-03-28 16:22 | ED.DCSUM_ITS ---
- ER Visit Summary Date of Service: 03/28/19 Chief Complaint: Left shoulder pain History of Present Illness: The patient is a 43 M who has left shoulder pain. Started 4 days ago. He describes sharp and throbbing pain in the left shoulder area. Is worse with movement. He does have some paresthesias down the left arm. Denies any loss of function. He is been trying ibuprofen and Tylenol without any relief. He denies any falls or trauma. 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 Physical Examination: Vitals are reviewed. His left shoulder is diffusely tender, mostly in the musculature in the posterior shoulder. He has decreased range of motion secondary to pain. He has normal sensation and pulses in the left arm. No elbow pain. Test Results: Left shoulder x-ray per my interpretation reveals no fractures or dislocations. There is some mild degenerative changes. Emergency Department Course and Treatment: Patient was given Friendly here. I feel his pain is likely muscular in nature. I do not feel it is any bony pain. Patient will be given Flexeril at home. He will ice and heat at home. We will follow-up with his PCP Treatment Plan: [] Disposition: Discharge Impression: Left shoulder strain This note was generated with [employer] dictation software. It may contain incorrect words, spelling, and punctuation that were not noted in review of the chart prior to signing ED Disposition - Plan for ED Patient: Referrals: Jameson Sood MD [Primary Care Provider] -
--- NOTE | 2019-03-28 16:22 | ED.DEP ---
ED Disposition - Plan for ED Patient: Disposition: Home or Assisted Living Instructions: ED Sprain Shoulder Prescriptions: Cyclobenzaprine [Flexeril] 10 mg PO TID PRN #20 tab PRN Reason: Muscle Spasm Referrals: Jameson Sood MD [Primary Care Provider] -
[2019-03-28 16:34] VITALS: RESP 18
== END 2019-03-28 16:35 | disposition home or self-care (01) ==
PROVIDERS: Emergency Provider Emergency Medicine; Family Provider Family Medicine; PCP Family Medicine
DX: S46.912A Strain of unspecified muscle, fascia and tendon at shoulder and upper arm level, left arm, initial encounter (principal); M19.012 Primary osteoarthritis, left shoulder; X58.XXXA Exposure to other specified factors, initial encounter; Y93.9 Activity, unspecified; Y92.89 Other specified places as the place of occurrence of the external cause; Y99.9 Unspecified external cause status
CPT/HCPCS: 73030; 99283

== ENCOUNTER 2019-05-10 16:29 | Emergency (ER) | payer MEDICAID, SELFPAY ==
[2019-05-10 16:30] VITALS: BP 161/90; PULSE 87; RESP 24; TEMP 36.6; O2SAT 93; BMI 61.9
--- NOTE | 2019-05-10 16:43 | ED.DCSUM_ITS ---
- ER Visit Summary Date of Service: 05/10/19 Chief Complaint: Fall, back injury History of Present Illness: The patient is a 43 M presents to the emergency department after a fall. Patient states he was on a trailer today. 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 He thinks his foot got stuck. He fell backwards. He landed on his right posterior ribs and low back. He did not strike his head. He denies loss of consciousness. Since then, he had persistent pain. He denies any nausea or vomiting. He denies any trouble urinating or moving his bowels. Physical Examination: Afebrile, vitals unremarkable. Well-appearing female no acute distress. Head is normocephalic, atraumatic. Pupil's equal round reactive, extraocular muscles intact. Neck supple. Heart regular rate and rhythm. Lungs clear, chest nontender. Abdomen soft, nontender, nondistended. No pulsatile mass. Patient has paraspinal tenderness in the lumbar area, but no bony tenderness. Straight leg raise is negative bilaterally. 2+ symmetric lower extremity pulses. 2+ reflexes. No clonus. No weakness of dorsiflexion, plantar flexion, or extensor hallucis longus bilaterally. Test Results: [] Emergency Department Course and Treatment: The patient did have an ecchymotic area over the left lower quadrant, but it is superficial. He has no deep tenderness. I did obtain x-rays of his ribs and his low back. These were unremarkable for acute fracture. The patient was given a short course of analgesics. He will be discharged home.] Treatment Plan: [] Disposition: Discharge Impression: 1. Rib contusion 2. Lumbar strain This note was generated with [employer] dictation software. It may contain incorrect words, spelling, and punctuation that were not noted in review of the chart prior to signing ED Disposition - Plan for ED Patient: Disposition: Home or Assisted Living Instructions: FALL, Mechanical Prescriptions: Hydrocodone Bitart/Apap 5-325 [[place] 5MG-325MG] 1 tab PO Q4H PRN PRN 2 Days #6 tab PRN Reason: Pain Prescription Printed Referrals: Jameson Sood MD [Primary Care Provider] -
--- NOTE | 2019-05-10 16:54 | RAD_ITS ---
STUDY: X-RAY - UNILATERAL RIBS ( RIGHT ) WITH CHEST REASON FOR EXAM: Male, 43 years old. Trauma TECHNIQUE - RIBS: 5 view(s) of the ribs. TECHNIQUE - CHEST: Frontal view of the chest COMPARISON: X-ray chest June 23, 2018 FINDINGS - RIBS: There are no displaced rib fractures identified. FINDINGS - CHEST: The lungs are clear. There are no pleural effusions. There is no pneumothorax. The heart is normal in size. RAD/Ribs Uni Min 3V w/PA Chest IMPRESSION: RIBS: No displaced rib fracture identified. CHEST: Clear lungs. Electronically Signed: Derek Lujan, at 17:14 EDT Tel , Service support ,
--- NOTE | 2019-05-10 16:54 | RAD_ITS ---
STUDY: X-RAY - LUMBAR SPINE REASON FOR EXAM: Male, 43 years old. Fall TECHNIQUE: 3 view(s) of the lumbar spine were obtained. COMPARISON: X-ray lumbar spine June 23, 2018 FINDINGS: There is no evidence of fracture or dislocation in the lumbar spine. The vertebral body heights and disc spaces are well-maintained. Mild multilevel osteophytosis is present. RAD/Lumbar Spine 2 or 3 Views IMPRESSION: No fracture or dislocation in the lumbar spine. Mild multilevel osteophytosis. Electronically Signed: Derek Lujan, at 17:16 EDT Tel , Service support ,
[2019-05-10] MEDS: HYDROcodone Bitartrate/Apap 5/325 Tablet PO (17:18)
--- NOTE | 2019-05-10 17:33 | ED.RN ---
DISCHARGE INSTRUCTIONS GIVEN TO AND REVIEWED WITH PATIENT, PATIENT DENIES QUESTIONS OR CONCERNS AND VOICES UNDERSTANDING OF DISCHARGE INSTRUCTIONS. PT AMBULATES OUT OF ROOM WITHOUT ISSUE.
== END 2019-05-10 17:34 | disposition home or self-care (01) ==
LOC: ED 17:11
PROVIDERS: Emergency Provider Emergency Medicine; Family Provider Family Medicine; PCP Family Medicine
DX: S20.219A Contusion of unspecified front wall of thorax, initial encounter (principal); S39.012A Strain of muscle, fascia and tendon of lower back, initial encounter; I10 Essential (primary) hypertension; E78.00 Pure hypercholesterolemia, unspecified; Z72.0 Tobacco use; W17.89XA Other fall from one level to another, initial encounter; Y93.9 Activity, unspecified; Y92.89 Other specified places as the place of occurrence of the external cause; Y99.9 Unspecified external cause status
CPT/HCPCS: 71101; 72100; 99283

== ENCOUNTER 2019-07-05 07:36 | Emergency (ER) | payer MEDICAID, SELFPAY ==
[2019-07-05 07:36] VITALS: BP 163/96; PULSE 80; RESP 16; TEMP 37.1; O2SAT 95; BMI 57.4
--- NOTE | 2019-07-05 07:41 | RAD_ITS ---
STUDY: X-RAY - RIGHT SHOULDER REASON FOR EXAM: Right shoulder pain for 2 days, no specific injury. TECHNIQUE: 4 view(s) of the shoulder. COMPARISON: Radiographs 01/03/2017. FINDINGS: Normal glenohumeral articulation. There is acromioclavicular as on the prior study. Normal acromion. Normal humeral head and visualized proximal humerus. The soft tissue structures are unremarkable. Normal visualized pulmonary apex. RAD/Shoulder min 2 Views IMPRESSION: Acromioclavicular arthrosis. Electronically Signed: Dominick Lindsay MD at 8:25 EDT Tel , Service support ,
--- NOTE | 2019-07-05 07:42 | ED.VIS.UPPEX ---
History of Present Illness Chief Complaint: Upper Extremity Injury Informant: Patient Occurred: Yesterday Mechanism/Context: - - Awoke yesterday with pain Onset: Yesterday Context: Sudden Onset Timing: Continuous Quality of Pain: Dull Location: Right trapezius/shoulder Current Severity: Mild Maximum Severity: Severe Worsened by: Abduction past 90 degrees Relieved by: Remaining still Associated Symptoms: Loss of Funtion. Negative for: Parasthesia, Weakness Narrative: Patient is a 44-year-old xohl-qyrh-vshoqnah male presents with atraumatic right shoulder pain. Patient awoke with pain yesterday. He thought he slept wrong. He denies trauma. He denies paresthesia, anesthesia motor weakness. He denies cardiac or respiratory symptoms and has no history of cardiac disease. Movement exacerbates his pain. Palpation exacerbates his pain. Pain radiates to the right elbow. It is not in a radicular pattern. Tetanus Immunization: 5-10 years Prior similar symptoms: No Recent Illness/Hospitalization: No - Past Medical History (1) Hx of partial nephrectomy Status: Acute Comment: Right 2017 (2) History of kidney cancer Status: Acute (3) Anxiety Status: Acute (4) Depression Status: Acute (5) Arthritis Status: Acute Past Medical History - Allergies and Home Meds Allergies/Adverse Reactions: Allergies hydrocortisone Allergy (Verified 05/10/19 16:30) Rash tramadol Adverse Reaction (Verified 05/10/19 16:30) Nausea Primary Care Physician: Jameson Sood MD [Primary Care Provider] - Surgical History: - - Ventral hernia Lives: Alone Smoking Status: Never smoker Alcohol: None Drugs: None Review of Systems General: Denies: Chills, Fever, Malaise, Subjective, Sweats, Weight loss, - Eyes: Denies: Visual changes - bilaterally, Blurred Vision - bilaterally ENT: Denies: Bilateral ear pain, Rhinorrhea, Sore throat Cardiovascular: Denies: Chest pain, Palpitations, Heart racing Respiratory: Denies: Dyspnea, Cough, Dyspnea on exertion, Orthopnea, Paroxysmal nocturnal dyspnea Gastrointestinal: Denies: Nausea, Vomiting Musculoskeletal: Reports: Neck pain - Right side. Not made worse with rotation or flexion, Extremity Pain - Right shoulder. Denies: Myalgias, Arthralgias, Back pain, Swelling Skin: Denies: Rash, Wounds Neurological: Denies: Headache, Weakness, Parasthesia, Numbness, -, - Hematologic: Denies: Easy bruising, Easy bleeding Allergy: Denies: Uticaria, Swelling of the mouth Physical Exam Vital Signs/Narrative: Vital Signs Temp Pulse Resp BP Pulse Ox 07/05/19 07:36 98.7 F 80 16 163/96 H 95 Inital Vital Signs reviewed: Yes Right Shoulder: Limited ROM. Negative for: Abrasion, Contusion, Deformity, Edema, Hematoma, - - Patient has significant pain with passive abduction past 90 degrees. Left Shoulder: Negative for: Abrasion, Contusion, Deformity, Edema, Hematoma, Limited ROM, - Right Humerus: Negative for: Abrasion, Contusion, Deformity, Edema, Hematoma, Limited ROM, - Left Humerus: Negative for: Abrasion, Contusion, Deformity, Edema, Hematoma, Limited ROM, - Right Elbow: Negative for: Abrasion, Contusion, Deformity, Edema, Hematoma, Limited ROM, - Right Forearm: Negative for: Abrasion, Contusion, Deformity, Edema, Hematoma, Limited ROM, - Right Wrist: Negative for: Abrasion, Contusion, Deformity, Edema, Hematoma, Limited ROM, - Right Hand: Negative for: Abrasion, Contusion, Deformity, Edema, Hematoma, Limited ROM, - General: Well nourished, Well developed, Obese Head: Normocephalic, Atraumatic Eyes: Perrl, EOMI. Negative for: Pale conjunctiva, Scleral icterus ENT: No Trauma, Moist Mucous Membranes Neck: Nontender, Full ROM. Negative for: Spinal Tenderness, Paraspinal Tenderness Cardiovascular: Regular rate, Regular rhythm, No murmurs, Normal S1, Normal S2 Respiratory: No distress, CTA bilaterally, Chest nontender Skin: Normal color, No rash, No Trauma. Negative for: Cyanosis, Diaphoresis, Jaundice Neurological: Alert, Oriented x3, Cranial nerves II-XII grossly intact, Normal Strength, Normal Sensation, Normal DTR - 1+ biceps, brachioradialis and tricep and symmetric, - - Axillary, median, radial and ulnar nerve function intact Psychological: Depressed Diagnostic/Tx/Re-eval Chest X-Ray - ED: Read by ED Physician, - - Three-view x-ray of the right shoulder was obtained. There is minimal arthritic changes of the AC joint. There is no evidence of calcification of supraspinatus tendon. There is no evidence of fracture, foreign body or malalignment. 0807 - Medical Decision Making With significant pain with abduction past 90 degrees concern for impingement syndrome. Will obtain x-ray to see if there is a evidence of calcification of the supraspinatus tendon. Also to evaluate for arthritis. History and physical exam is not consistent with cervical radiculopathy. ED Disposition - Plan for ED Patient: Disposition: Home or Assisted Living Diagnosis: Pain of right shoulder joint on movement Instructions: Shoulder Sprain Prescriptions: Naproxen [Naprosyn] 500 mg PO BID #14 tab Transmission Status: Pending to [facility]30 Referrals: Jameson Sood MD [Primary Care Provider] - 1 Week if not improving Additional Instructions: Your prescription was electronically transmitted to [facility]..
[2019-07-05] MEDS: Naproxen 500 MG Tablet PO (07:59)
[2019-07-05] MEDS: HYDROcodone Bitartrate/Apap 5/325 Tablet PO (07:59)
== END 2019-07-05 08:20 | disposition home or self-care (01) ==
PROVIDERS: Emergency Provider Emergency Medicine; Family Provider Family Medicine; PCP Family Medicine
DX: M25.511 Pain in right shoulder (principal); F32.9 Major depressive disorder, single episode, unspecified; Z88.8 Allergy status to other drugs, medicaments and biological substances; Z85.528 Personal history of other malignant neoplasm of kidney; Z90.5 Acquired absence of kidney
CPT/HCPCS: 73030; 99283

== ENCOUNTER 2019-09-08 14:50 | Emergency (ER) | payer MEDICAID, SELFPAY ==
[2019-09-08 14:52] VITALS: BP 167/110; PULSE 82; RESP 18; TEMP 36.7; O2SAT 97; BMI 62.6
== END 2019-09-08 18:25 ==
LOC: ED 16:52
PROVIDERS: Emergency Provider Emergency Medicine; Family Provider Family Medicine; PCP Family Medicine
DX: K08.89 Other specified disorders of teeth and supporting structures (principal)

== ENCOUNTER 2019-09-12 12:22 | Emergency (ER) | payer MEDICAID, SELFPAY ==
[2019-09-12 12:23] VITALS: BP 159/92; PULSE 83; RESP 18; TEMP 36.2; O2SAT 98; BMI 56.5
--- NOTE | 2019-09-12 12:44 | ED.DCSUM_ITS ---
History of Present Illness Chief Complaint: Back Detail of Chief Complaint: Right-sided back pain Informant: Patient Onset: Days - 3 days Context: Gradual Onset Current Severity: Moderate Maximum Severity: Severe Narrative: Patient presents with right-sided back pain. He initially thought he may have a kidney stone it is in the right flank area. Pain is now going down across the buttock and down his leg as well. He denies weakness, but states he has some intermittent tingling in his leg. He does have some mild dysuria. He states he will have dysuria intermittently and will sometimes feel as if he needs to urinate a lot, but only able to urinate a small amount. He denies any recent back injury. Past Medical History - Allergies and Home Meds Allergies/Adverse Reactions: Allergies hydrocortisone Allergy (Verified 09/12/19 12:26) Rash tramadol Adverse Reaction (Verified 09/12/19 12:26) Nausea Primary Care Physician: Jameson Sood MD [Primary Care Provider] - Prior records reviewed: Yes Past Medical History: - - Reviewed Surgical History: - - Ventral hernia Lives: Spouse/ Significant Other Smoking Status: Unknown if ever smoked Review of Systems General: Denies: Chills, Fever Eyes: Denies: Visual changes - bilaterally ENT: Denies: Bilateral ear pain Cardiovascular: Denies: Chest pain Respiratory: Denies: Dyspnea, Cough Gastrointestinal: Denies: Abdominal pain, Nausea, Vomiting, Diarrhea Genitourinary: Reports: Dysuria. Denies: Hematuria Musculoskeletal: Reports: Back pain, Extremity Pain Skin: Denies: Rash Neurological: Reports: Parasthesia. Denies: Headache Endocrine: Denies: Polyuria, Polydipsia Hematologic: Denies: Easy bruising Allergy: Denies: Uticaria Physical Exam Vital Signs/Narrative: Vital Signs Temp Pulse Resp BP Pulse Ox 09/12/19 12:23 97.2 F L 83 18 159/92 H 98 Inital Vital Signs reviewed: Yes General: Well nourished, Well developed Head: Normocephalic ENT: Moist mucous membranes Neck: Supple Cardiovascular: Regular rate, Regular rhythm Respiratory: No distress, CTA bilaterally Abdomen: Soft, Nontender Back: - - Tenderness in the right lumbar paraspinal muscles and over the sciatic notch. Extremities: - - No reproducible tenderness in the leg. Strong distal pulses noted.. Negative for: Calf Tenderness Skin: Normal color Neurological: Alert, Oriented x3, Normal Strength, Normal Sensation Psychological: Normal affect Diagnostic/Tx/Re-eval Laboratory Results 09/12/19 12:38 Urine Color Yellow Urine Clarity Clear Urine pH 7.0 Ur Specific [place] 1.010 Urine Protein Negative Urine Glucose (UA) Normal Urine Ketones Negative Urine Occult Blood Negative Urine Nitrite Negative Urine Bilirubin Negative Urine Urobilinogen Normal Ur Leukocyte Esterase 100 H Urine RBC 0 SEEN Urine WBC 0-5 SEEN Ur Squamous Epith Cells 0-5 SEEN Urine Bacteria RARE Urine Mucus 0 SEEN Urine Trichomonas 0-5 SEEN - Medical Decision Making Patient was given morphine, Zofran, Solu-Medrol. On repeat evaluation he is resting comfortably. I advised him that I do not believe this is all from his back and not a kidney stone. He will be treated with Snowflake, Flexeril, prednisone. I will avoid anti-inflammatories as he has had a partial nephrectomy secondary to renal cancer. ED Disposition - Plan for ED Patient: Disposition: Home or Assisted Living Diagnosis: Sciatica Instructions: BACK PAIN w/ SCIATICA Prescriptions: cycloBENZAPRine HCl [Flexeril] 10 mg PO TID PRN #20 tablet PRN Reason: Muscle Spasm Hydrocodone Bitart/Apap 5-325 [Snowflake 5MG-325MG] 1 tablet PO Q6H PRN PRN 3 Days #10 tablet PRN Reason: Pain Prednisone 10 mg PO DAILY #63 tablet Referrals: Jameson Sood MD [Primary Care Provider] - 1 Week
[2019-09-12 12:54] LABS: Mucous, Urine 0 SEEN /hpf (<or=2+); Red Blood Cells-Urine 0 SEEN /hpf (0-5)
[2019-09-12 12:55] LABS: Color, Urine Yellow (Yellow); Glucose, Dipstick Normal (Normal); Ketone-Dipstick Negative (Negative); Leukocyte Esterase-Dipstick 100 /ul (Negative); Nitrite-Dipstick Negative (Negative); Occult Blood-Urine Negative /ul (Negative); Protein-Dipstick Negative (Negative); Urine Bilirubin Dipstick Negative (Negative); Urine Clarity Clear (Clear); Urine Urobilinogen Normal (Normal)
[2019-09-12] MEDS: Ondansetron 4 MG/2 ML Vial IV (12:56)
[2019-09-12] MEDS: Morphine 4 MG/ML Syringe IV (12:56)
[2019-09-12] MEDS: MethylPREDNISolone 125 MG/2 ML Vial IV (12:56)
[2019-09-12 13:05] LABS: Bacteria RARE /hpf (None Seen); Squamous Epithelial Cells - UA 0-5 SEEN /hpf (0-5); Trichomonas 0-5 SEEN /hpf (None Seen); White Blood Cells 0-5 SEEN /hpf (0-5)
== END 2019-09-12 13:51 | disposition home or self-care (01) ==
PROVIDERS: Emergency Provider Emergency Medicine; Family Provider Family Medicine; PCP Family Medicine
DX: M54.30 Sciatica, unspecified side (principal); Z88.8 Allergy status to other drugs, medicaments and biological substances; Z90.5 Acquired absence of kidney; Z85.53 Personal history of malignant neoplasm of renal pelvis
CPT/HCPCS: 81001; 96374; 96375; 99283; J7030; A4216; J2405

== ENCOUNTER 2019-10-01 13:06 | Emergency (ER) | payer MEDICAID, SELFPAY ==
[2019-10-01 13:07] VITALS: BP 136/81; PULSE 82; RESP 16; TEMP 36.4; O2SAT 98; BMI 56.2
--- NOTE | 2019-10-01 13:57 | RAD_ITS ---
STUDY: X-RAY - LEFT KNEE REASON FOR EXAM: Male, 44 years old. Pain secondary to a fall. TECHNIQUE: 4 view(s) of the knee. COMPARISON: None. FINDINGS: Normal visualized distal femur. Normal visualized proximal tibia and fibula. Normal proximal tibiofibular articulation. There is severe degenerative arthrosis of the medial femorotibial compartment with severe joint space narrowing. There is severe degenerative arthrosis of the lateral femorotibial compartment with severe joint space narrowing. There is moderate degenerative arthrosis of the patellofemoral articulation. Minimal joint effusion. RAD/Knee 4 or More Views IMPRESSION: Degenerative arthrosis. Minimal joint effusion. Electronically Signed: Chencho Templeton, at 15:07 EST , Service support ,
--- NOTE | 2019-10-01 13:57 | RAD_ITS ---
STUDY: X-RAY - PELVIS AND LEFT HIP REASON FOR EXAM: Male, 44 years old. Pain following a fall. TECHNIQUE: 3 views of the pelvis and hip. COMPARISON: None. FINDINGS: There is a non-specific bowel gas pattern. Normal visualized soft tissue structures. Normal bilateral iliac wings, sacroiliac joints and visualized sacrum. Normal bilateral superior and inferior pubic rami. Normal pubic symphysis. Normal bilateral ischial tuberosities. Normal visualized femoral head. Normal acetabulum. Normal hip joint. RAD/HIP, UNI W/ Pelvis 2-3 Views IMPRESSION: Normal x-ray examination of the pelvis and hip. Electronically Signed: Chencho Templeton, at 15:05 EST , Service support ,
--- NOTE | 2019-10-01 13:58 | ED.DCSUM_ITS ---
History of Present Illness Chief Complaint: Lower Extremity Injury Informant: Patient Occurred: Today Mechanism/Context: Fall Onset: Today Context: Sudden Onset Timing: Continuous Quality of Pain: Sharp, Aching, Stabbing Narrative: Patient is a 44-year-old male presenting with left knee pain. He states he was helping his father move a dresser down stairs when he slipped on the last 2 steps and fell onto his left knee. Patient states he fell directly on it. This happened about 3 hours prior to arrival. Patient was having a hard time amb ulating so his mother insisted he come to the emergency room to be evaluated further. He did not take any medication for pain prior to arrival. He has swelling of the knee but denies any associated numbness. He denies any weakness of his leg, but notes that movement makes it worse. Past Medical History - Allergies and Home Meds Allergies/Adverse Reactions: Allergies hydrocortisone Allergy (Verified 10/01/19 13:07) Rash tramadol Adverse Reaction (Verified 10/01/19 13:07) Nausea Primary Care Physician: Jameson Sood MD [Primary Care Provider] - Past Medical History: - - History of kidney cancer status post partial nephrectomy, anxiety/depression, arthritis Surgical History: noncontributory, - - Ventral hernia Smoking Status: Current every day smoker Review of Systems General: Denies: Chills, Fever, Sweats Eyes: Denies: Visual changes - bilaterally, Diplopia ENT: Denies: Rhinorrhea, Sore throat Cardiovascular: Denies: Chest pain, Palpitations Respiratory: Denies: Dyspnea, Cough Musculoskeletal: Reports: Extremity Pain - Left knee pain. Denies: Back pain Skin: Denies: Rash, Wounds Neurological: Denies: Headache, Weakness, Numbness Physical Exam Vital Signs/Narrative: Vital Signs Temp Pulse Resp BP Pulse Ox 10/01/19 13:07 97.5 F L 82 16 136/81 H 98 Inital Vital Signs reviewed: Yes - Extremity Exam Right Pelvis: - - Stable Left Pelvis: - - Stable Right Hip: - - Nontender, full range of motion Left Hip: - - Mild tenderness with logroll. Right Femur: - - Nontender Left Femur: - - Nontender, no deformity Right Knee: - - Full range of motion, nontender, no edema Left Knee: - - Mild joint effusion present, diffuse tenderness most pronounced over the medial joint aspect. Normal straight leg test, no high riding patella, patient able to tolerate anterior/posterior drawer test as well as Jennifer's test Right Tib fib: -. Negative for: Deformity, Edema Left Tib Fib: - - No tenderness over the fibular head. Negative for: Deformity, Edema Right Ankle: Negative for: Deformity, Edema, Limited ROM Left Ankle: Negative for: Deformity, Edema, Limited ROM Right Foot: - - 2+ DP pulse Left Foot: - - 2+ DP pulse General: Well nourished, Well developed, Obese Head: Normocephalic, Atraumatic Eyes: Perrl, EOMI ENT: No Trauma, Moist Mucous Membranes Neck: Nontender, Full ROM Cardiovascular: Regular rate, Regular rhythm, No murmurs Respiratory: No distress, CTA bilaterally, Chest nontender Abdomen: Soft, Nontender, Nondistended, Normal bowel sounds Back: Nontender Skin: Normal color, No rash. Negative for: Trauma Neurological: Alert, Oriented x3, Cranial nerves II-XII grossly intact, Normal Strength, Normal Sensation Psychological: Normal affect Diagnostic/Tx/Re-eval Clinical Impression(s) from Imaging Studies Hip/Pelvis X-Ray 10/01/19 13:57 IMPRESSION: Normal x-ray examination of the pelvis and hip. Electronically Signed: Chencho Templeton, at 15:05 EST , Service support , Knee X-Ray 10/01/19 13:57 IMPRESSION: Degenerative arthrosis. Minimal joint effusion. Electronically Signed: Chencho Templeton, at 15:07 EST , Service support , - Medical Decision Making Patient is evaluated after mechanical fall. He has pain in his left knee as well as pain in over his left hip. She is initially given a shot of morphine for pain control. He does not have any obvious deformity. X-ray shows a normal hip but he does have significant degenerative changes of the left knee. Patient states he does have knee problems before this fall. Patient is referred to orthopedics for further evaluation. He is counseled on weight loss. He is counseled on rice therapy. He is instructed to take ibuprofen alternate with Tylenol for pain. Patient was ambulatory prior to arrival. He is given an Ki wrap for compression of the knee. Patient is counseled on signs and symptoms requiring return to the emergency room. Patient verbalizes agreement and understand this plan. Patient discharged home in stable and improved condition. ED Disposition - Plan for ED Patient: Disposition: Home or Assisted Living Diagnosis: Knee pain, right Instructions: Knee Sprain Prescriptions: Ibuprofen [Motrin] 600 mg PO Q6H PRN PRN #15 tablet PRN Reason: Pain/Inflammation Referrals: Jameson Sood MD [Primary Care Provider] - Fantasma Dennison MD [STAFF PHYSICIAN] - Additional Instructions: Use rice therapy (rest ice compression and elevation) for your knee injury today. Your x-ray shows a lot of degenerative changes that might benefit from evaluation from an orthopedic surgeon. Alternate Tylenol and ibuprofen for your pain. Return to emergency room if you have worsening symptoms.
[2019-10-01] MEDS: Morphine 4 MG/ML Syringe IM (14:22)
[2019-10-01 15:30] VITALS: RESP 16
== END 2019-10-01 15:33 | disposition home or self-care (01) ==
PROVIDERS: Emergency Provider Emergency Medicine; Family Provider Family Medicine; PCP Family Medicine
DX: M25.561 Pain in right knee (principal); M79.89 Other specified soft tissue disorders; F17.200 Nicotine dependence, unspecified, uncomplicated; Z85.528 Personal history of other malignant neoplasm of kidney; Z90.5 Acquired absence of kidney; M19.90 Unspecified osteoarthritis, unspecified site
CPT/HCPCS: 73502; 73564; 96372; 99282

== ENCOUNTER 2019-10-16 14:19 | Emergency (ER) | payer MEDICAID, SELFPAY ==
[2019-10-16 14:21] VITALS: BP 156/91; PULSE 84; RESP 20; TEMP 36.7; O2SAT 99; BMI 63.5
--- NOTE | 2019-10-16 14:57 | ED.DEP ---
ED Disposition - Plan for ED Patient: Instructions: Dental Pain Prescriptions: Clindamycin HCl [Cleocin] 300 mg PO Q6H #40 cap Prescription Printed Oxycodone HCl/Acetaminophen [Percocet 5/325] 1 tab PO Q6H PRN PRN 3 Days #12 tab PRN Reason: Pain Prescription Printed Referrals: Jameson Sood MD [Primary Care Provider] - Additional Instructions: see your dentist in 3-5 days
--- NOTE | 2019-10-16 15:00 | ED.DCSUM_ITS ---
- ER Visit Summary Date of Service: 10/16/19 Chief Complaint: [Dental pain] History of Present Illness: The patient is a 44 M [presents to the emergency department complaint of dental pain that he said for about 2 weeks. Patient states that he saw his primary dentist and was told that he would need to have a surgical extraction of the tooth it has been bothering him and he is got an appointment to see a oral surgeon in [place] in 4 days. Patient states he had pain off and on. He denies any fever. Patient has otherwise no medical history.] Physical Examination: [HEENT-PERRLA, EOMI. Cranial nerves II through XII grossly intact. TMs clear. Mucous membranes moist. No adenopathy. Dentition- patient has a broken and carried left lower second molar that is tender to palpation. No gingival abscess noted. No facial erythema or cellulitis noted. No adenopathy. Cardiovascular-regular rate and rhythm without murmur or ectopy Lungs-clear to auscultation, chest wall stable without crepitus or subcu emphysema Abdomen-normoactive bowel sounds, soft, nontender, no rebound or rigidity, no peritoneal signs. Extremities-intact ?4, normal range of motion, normal pulses, atraumatic] Test Results: [None indicated] Emergency Department Course and Treatment: [] Treatment Plan: [Patient will start on clindamycin given 12 Percocet for severe pain. Patient to follow-up with his dentist.] Disposition: [Discharged home in stable condition] Impression: [Dental pain secondary to dental caries] This note was generated with [employer] dictation software. It may contain incorrect words, spelling, and punctuation that were not noted in review of the chart prior to signing ED Disposition - Plan for ED Patient: Instructions: Dental Pain Prescriptions: Clindamycin HCl [Cleocin] 300 mg PO Q6H #40 cap Prescription Printed Oxycodone HCl/Acetaminophen [Percocet 5/325] 1 tab PO Q6H PRN PRN 3 Days #12 tab PRN Reason: Pain Prescription Printed Referrals: Jameson Sood MD [Primary Care Provider] - Additional Instructions: see your dentist in 3-5 days
== END 2019-10-16 15:09 | disposition home or self-care (01) ==
LOC: ED 15:02
PROVIDERS: Emergency Provider Emergency Medicine; Family Provider Family Medicine; PCP Family Medicine
DX: K02.9 Dental caries, unspecified (principal)
CPT/HCPCS: 99282

== ENCOUNTER 2019-11-08 17:57 | Emergency (ER) | payer MEDICAID, SELFPAY ==
[2019-11-08 17:58] VITALS: BP 164/89; PULSE 77; RESP 22; TEMP 36.4; O2SAT 100; BMI 57.4
--- NOTE | 2019-11-08 18:08 | ED.VISSUMM ---
- ER Visit Summary Date of Service: 11/08/19 Chief Complaint: Back pain History of Present Illness: The patient is a 44 M who complains of back pain. He said this pain for 3 weeks. He was seen here in the emergency room and was given [place] and Flexeril. He did improve but the pain came back. He saw his PCP last week and given prednisone naproxen and Flexeril but this is not helping. The pain is in the lumbar portion of his back. He describes as sharp and aching. It radiates down both legs. He denies any dysuria, bowel or urinary incontinence. He has no history of any back surgeries in the past. Physical Examination: Vital signs reviewed. His BMI is 57.5. HEENT exam unremarkable. Heart is regular rate and rhythm without murmurs. Lungs are clear to auscultation. Abdomen is soft and nontender. Back is diffusely tender in the lumbar region. There are no step-offs. No rashes. Extremities reveal no edema. Skin exam normal. Neurologic exam normal. Test Results: None performed Emergency Department Course and Treatment: Patient received morphine and Norflex here. Without any trauma I do not feel any x-rays are necessary. He has no red flag symptoms I do not feel he needs any labs. He will be treated with Lidoderm patches and flex at home. I feel that he needs to receive any further narcotics from his PCP. Treatment Plan: [] Disposition: Discharge Impression: Lumbar back pain This note was generated with [employer] dictation software. It may contain incorrect words, spelling, and punctuation that were not noted in review of the chart prior to signing ED Disposition - Plan for ED Patient: Referrals: Jameson Sood MD [Primary Care Provider] -
--- NOTE | 2019-11-08 18:10 | DCINST.ED_ITS ---
ED Disposition - Plan for ED Patient: Disposition: Home or Assisted Living Instructions: BACK AND NECK PAIN, General Prescriptions: Lidocaine [Lidoderm] 1 ea TP DAILY #10 adh..patch Transmission Status: Pending to [facility] #30 Tizanidine HCl [Zanaflex] 4 mg PO TID #20 tab Transmission Status: Pending to [facility] #30 Referrals: Jameson Sood MD [Primary Care Provider] -
[2019-11-08] MEDS: Morphine 4 MG/ML Syringe IM (18:19)
[2019-11-08] MEDS: Orphenadrine 60 MG/2 ML Ampul IM (18:20)
--- NOTE | 2019-11-08 18:43 | ED.RN ---
PT D/C AFTER SHOT TIME, PT WITH NO COMPLAINTS.
== END 2019-11-08 18:44 | disposition home or self-care (01) ==
PROVIDERS: Emergency Provider Emergency Medicine; Family Provider Family Medicine; PCP Family Medicine
DX: M54.5 Low back pain (principal)
CPT/HCPCS: 96372; 99282

== ENCOUNTER 2019-12-20 14:03 | Emergency (ER) | payer MEDICAID, SELFPAY ==
[2019-12-20 14:06] VITALS: BP 146/95; PULSE 86; RESP 19; TEMP 36.6; O2SAT 97; BMI 62.8
--- NOTE | 2019-12-20 14:37 | ED.VISSUMM ---
- ER Visit Summary Date of Service: 12/20/19 Chief Complaint: Left knee and ankle pain after slipping and falling History of Present Illness: The patient is a 44 M history of left knee arthritis needing replacement. Patient states he was looking for something in a car junkyard. Not it was muddy out he slipped and fell in the mud twisting his left knee and ankle. Now complaining of pain. Much more painful to walk. This occurred earlier today. He denies any other injuries. He has a known arthritic degenerative left knee he is trying to get it replaced but due to his body habitus and obesity no one has undertaken that surgery yet. Physical Examination: Middle-aged morbidly obese male no acute distress vital signs stable afebrile. HEENT exam unremarkable atraumatic. C-spine nontender. Lungs clear to auscultation bilaterally. Heart regular rhythm no murmur. Abdomen soft nontender normal bowel sounds no peritoneal signs. Morbidly obese patient is moving all 4 extremities. Neurovascular intact. He has tenderness to his left knee. He is able to flex and extension is more pain with flexion. Quadriceps patellar tendons intact. Is no gross bony deformity. ACL, PCL MCL and LCL appear to be intact. He does have pain with stressing his knee. There is no significant effusion. His hemphill is nontender. His left ankle has mild tenderness. There is no gross bony deformity. DP pulses intact. Dorsi plantarflexion is intact of his left foot. Foot is nontender no gross bony deformity. Right lower extremity is unremarkable. Neurologically is awake alert with no focal motor deficits. Test Results: Left knee x-ray 4 views read by myself shows no acute abnormality. No fracture or dislocation. However he has severe chronic degenerative arthritis of his left knee. Left ankle x-ray no acute process. No fracture or dislocation. Emergency Department Course and Treatment: Motrin for pain. Treatment Plan: Ice and elevate his knee. Aircast for his ankle. Follow-up with his orthopedic physician who is discussing a knee replacement with. Disposition: discharge Impression: Slipped and fell in the mud Acute left knee sprain History of degenerative joint disease and arthritis of left knee Left ankle sprain This note was generated with [employer] dictation software. It may contain incorrect words, spelling, and punctuation that were not noted in review of the chart prior to signing ED Disposition - Plan for ED Patient: Referrals: Jameson Sood MD [Primary Care Provider] -
--- NOTE | 2019-12-20 14:50 | RAD_ITS ---
STUDY: X-RAY - LEFT KNEE REASON FOR EXAM: Male, 44 years old. SLIPPED IN MUD AND TWISTED LEFT LEG, PAIN TO ANKLE AND KNEE. PT TO HAVE KNEE REPLACEMENT SOON TECHNIQUE: 4 view(s) of the knee. COMPARISON: None. FINDINGS: Normal visualized distal femur. Normal visualized proximal tibia and fibula. Normal proximal tibiofibular articulation. There is severe degenerative arthrosis of the medial femorotibial compartment with severe joint space narrowing. Normal lateral femorotibial compartment. There is severe degenerative arthrosis of the patellofemoral articulation. Minimal joint effusion. RAD/Knee 4 or More Views IMPRESSION: Degenerative arthrosis. Minimal joint effusion. Electronically Signed: Chencho Templeton, at 15:16 EST , Service support ,
[2019-12-20] MEDS: Ibuprofen 600 MG Tablet PO (14:52)
--- NOTE | 2019-12-20 15:11 | ED.DEP ---
ED Disposition - Plan for ED Patient: Disposition: Home or Assisted Living Instructions: Knee Sprain, Sprain, Ankle, with X-Ray Referrals: Jameson Sood MD [Primary Care Provider] - As Needed Additional Instructions: Ice to the knee and ankle and elevate. Continue your Naprosyn for pain and inflammation. Aircast to help you walk Follow-up with your orthopedic doctor for your degenerative knee arthritis
--- NOTE | 2019-12-20 15:40 | RAD_ITS ---
STUDY: X-RAY - LEFT ANKLE REASON FOR EXAM: Male, 44 years old. SLIPPED IN MUD AND TWISTED LEFT LEG, PAIN TO ANKLE AND KNEE. PT TO HAVE KNEE REPLACEMENT SOON TECHNIQUE: 3 view(s) of the ankle. COMPARISON: Comparison is made with prior examination dated March 19, 2017. FINDINGS: Normal visualized distal tibia and fibula. Normal medial and lateral malleoli. Normal tibiotalar articulation and ankle mortise. Small plantar spur. The visualized subtalar, talonavicular, calcaneocuboid and tarsal articulations are normal. Diffuse soft tissue swelling. RAD/Ankle min 3 Views IMPRESSION: Diffuse soft tissue swelling. Small plantar spur. Electronically Signed: Chencho Templeton, at 15:16 EST , Service support ,
== END 2019-12-20 15:47 | disposition home or self-care (01) ==
PROVIDERS: Emergency Provider Emergency Medicine; PCP Family Medicine
DX: S83.92XA Sprain of unspecified site of left knee, initial encounter (principal); S93.402A Sprain of unspecified ligament of left ankle, initial encounter; W01.0XXA Fall on same level from slipping, tripping and stumbling without subsequent striking against object, initial encounter; M17.12 Unilateral primary osteoarthritis, left knee; E66.01 Morbid (severe) obesity due to excess calories
CPT/HCPCS: 73564; 73610; 99283

== ENCOUNTER 2020-01-03 22:13 | Emergency (ER) | payer MEDICAID, SELFPAY ==
[2020-01-03 22:14] VITALS: BP 162/117; PULSE 85; RESP 26; TEMP 36.6; O2SAT 94; BMI 60.5
[2020-01-03 22:34] VITALS: O2SAT 95
--- NOTE | 2020-01-03 23:11 | EKG12_ITS ---
Test Reason : SOB Blood Pressure : / mmHG Vent. Rate : 078 BPM Atrial Rate : 078 BPM P-R Int : 144 ms QRS Dur : 096 ms QT Int : 384 ms P-R-T Axes : 041 024 044 degrees QTc Int : 437 ms Poor data quality, interpretation may be adversely affected Normal sinus rhythm Normal ECG Confirmed by KATHY ART, REYMUNDO ([id number]), international editorial producer MIRNA PACE ([id number]) on 01/05/2020 9:18:06 AM Referred By: JARED Confirmed By:REYMUNDO CHAVEZ MD
--- NOTE | 2020-01-03 23:23 | ED.DCSUM_ITS ---
History of Present Illness Chief Complaint: Cough Informant: Patient Onset: Yesterday Timing: Intermittent Worsened by: Coughing Associated Symptoms: Chills, Ear pain, Post-nasal drainage, Rhinorrhea, Sore throat Chest Pain: Pleuritic, Tightness Narrative: Patient is a 44-year-old male with history of kidney cancer status post resection presenting with chest pain and cough. Patient states yesterday he developed some upper respiratory symptoms and started coughing. He states he was up all night because of coughing was so bad. He could not sleep due to the coughing. He states he has pain in his right side, ribs as well as the left but the right is worse. He has associated runny nose, nasal drainage and ear pain. He had an episode of feeling warm but not sure if he had a fever. States has had associated dry heaves and has heaped up small streaks of blood but thinks that is from the dry heaves. He states he gets that from time to time. Family is concerned because he was short of breath and wheezing so they told to come to the emergency room. Patient was 2 years ago he had a similar episode was diagnosed with an upper respiratory infection and started on cough medication and got better. Patient notes when he was getting up to use the restroom at one point today he had a severe episode of sharp right upper quadrant pain that lasted for couple minutes and went away. He is not sure what to make of it. He has had normal bowel movements. He Nuys any urinary symptoms. He denies any other complaints at this time. Patient's tried taking DayQuil with no significant relief of his symptoms. He takes Naprosyn 500 mg twice a day for his knee pain. This has not helped with his chest pain either. Past Medical History - Allergies and Home Meds Allergies/Adverse Reactions: Allergies hydrocortisone Allergy (Verified 01/03/20 22:14) Rash tramadol Adverse Reaction (Verified 01/03/20 22:14) Nausea Primary Care Physician: Jameson Sood MD [Primary Care Provider] - Past Medical History: - - History of kidney cancer, status post resection Surgical History: noncontributory, - - Ventral hernia Lives: With Family Smoking Status: Never smoker Review of Systems General: Reports: Chills, Malaise. Denies: Fever, Sweats Eyes: Denies: Visual changes - bilaterally, Diplopia ENT: Denies: Rhinorrhea, Sore throat Cardiovascular: Reports: Chest pain - with coughing. Denies: Palpitations Respiratory: Reports: Dyspnea, Cough. Denies: Dyspnea on exertion Gastrointestinal: Reports: Nausea. Denies: Abdominal pain, Vomiting, Diarrhea, Melena, Hematochezia Genitourinary: Denies: Dysuria, Hematuria, Frequency Musculoskeletal: Denies: Back pain, Extremity Pain Skin: Denies: Rash, Wounds Neurological: Denies: Headache, Weakness, Numbness Physical Exam Vital Signs/Narrative: Vital Signs Temp Pulse Resp BP Pulse Ox 01/03/20 22:14 97.8 F 85 26 H 162/117 H 94 Inital Vital Signs reviewed: Yes General: Well nourished, Well developed, Obese, No Acute Distress Head: Normocephalic, Atraumatic Eyes: Perrl, EOMI ENT: Moist mucous membranes, No rhinorrhea, TM's clear, Nasal congestion, - - Mild pharyngeal erythema, no edema or exudate present Neck: Supple, Nontender Cardiovascular: Regular rate, Regular rhythm, No murmurs Respiratory: No distress, CTA bilaterally, Chest tenderness - Highly reproducible chest wall tenderness of the right anterior lower ribs with even light palpation Abdomen: Soft, Nontender, Nondistended, Normal bowel sounds Back: Nontender, Normal Inspection Extremities: Nontender, No edema Skin: Normal color, No rash Neurological: Alert, Oriented x3, Cranial nerves II-XII grossly intact, Normal Strength, Normal Sensation Psychological: Normal affect, Normal Mood Diagnostic/Tx/Re-eval Chest X-Ray - ED: 2 View, Read by ED Physician, Read by Radiologist, No Acute Disease Clinical Impression(s) from Imaging Studies Chest X-Ray 01/04/20 00:00 IMPRESSION: No active pulmonary disease. Electronically Signed: Chirs Aguilera MD at 0:30 EST Tel , Service support , Laboratory Data 01/03/20 01/03/20 01/03/20 23:48 23:48 23:48 WBC 9.9 RBC 5.30 Hgb 14.7 Hct 46.9 MCV 88.5 MCH 27.7 MCHC 31.3 L RDW Std Deviation 45.3 H RDW Coeff of Roberto 14.0 Plt Count 162 MPV 10.2 Immature Gran % (Auto) 0.300 Neut % (Auto) 76.3 H Lymph % (Auto) 12.9 L Vilas % (Auto) 7.9 Eos % (Auto) 2.4 Baso % (Auto) 0.2 Absolute Neuts (auto) 7.6 Absolute Lymphs (auto) 1.28 Nucleated RBC % 0 Sodium 140 Potassium 4.2 Chloride 108 H Carbon Dioxide 29.0 Anion Gap 3 L BUN 17 Creatinine 0.86 Estim Creat Clear Calc 109.61 Est GFR (MDRD) Af Amer 123 Est GFR (MDRD) Non-Af 102 BUN/Creatinine Ratio 19.7 Glucose 82 Calcium 8.8 Total Bilirubin 0.40 AST 22 ALT 29 Alkaline Phosphatase 113 Troponin I < 0.015 Total Protein 7.4 Albumin 3.8 Globulin 3.6 Albumin/Globulin Ratio 1.1 - Rhythm Strip Rhythm Strip: Sinus Rhythm Rate: 78 Ectopy: None - EKG Initial EKG Interpretation: Sinus Rhythm, - - Normal sinus rhythm at a rate of 78Normal intervalsNormal ST segmentsNormal axisCompared to prior EKG no changes Treatment - Dyspnea: Albuterol Repeat Evaluation: Improved - Medical Decision Making Patient is evaluated for upper respiratory symptoms. He also has rib pain. I suspect this is either muscle skeletal or pleuritic. I do not suspect ACS or PE. Patient is PERC negative. No indication for d-dimer. Likely this is a viral upper respiratory illness that is causing his symptoms. Patient troponin and EKG are normal. Chest x-rays not show acute infiltrate. Patient is given an aerosol of albuterol does have improvement of his symptoms. He is given IV morphine for pain control. He is also given a Lidoderm patch. Patient be discharged home with a course of prednisone, albuterol and a very short course of Roebling for pain control. Patient is counseled to use [id number] 4% Lidoderm patches as well for his rib pain. He is given a work note for today and tomorrow. Patient is counseled on signs and symptoms requiring return to the emergency room. Patient verbalizes agreement and understand this plan. Patient discharged home in stable and improved condition. ED Disposition - Plan for ED Patient: Disposition: Home or Assisted Living Diagnosis: Bronchitis, Chest wall pain Instructions: BRONCHITIS with Wheezing (Adult) Prescriptions: Hydrocodone Bitart/Apap 5-325 [Roebling 5MG-325MG] 1 tablet PO Q6H PRN PRN 2 Days #5 tablet PRN Reason: Pain Transmission Status: Sent to [facility] Prednisone 40 mg PO DAILY #8 tab Transmission Status: Pending to [facility] Referrals: Jameson Sood MD [Primary Care Provider] - Additional Instructions: Use albuterol inhaler 1-2 puffs every 4-6 hours as needed for cough and wheezing. Return to the emergency room with worsening symptoms. Follow-up with your primary care doctor.
[2020-01-03] MEDS: Albuterol 2.5 MG/3 ML VIAL.NEB. INHALATION ×3 (23:32→23:33)
[2020-01-03 23:36] VITALS: PULSE 76; RESP 11
[2020-01-03 23:43] VITALS: BP 121/70; PULSE 84; RESP 18; O2SAT 94
[2020-01-03] MEDS: 0.9% Normal Saline 1,000 ML 999 ML IV (23:45)
[2020-01-03] MEDS: morphine 8 MG/ML Syringe 6 MG IV (23:46)
[2020-01-03 23:53] LABS: Absolute Lymphocyte Count 1.28 X10^3/uL (0.83-4.51); Absolute Neutrophil Count 7.6 X10^3/uL (2.0-7.7); Basophil# 0.02 X10^3/uL; Basophil% 0.2 % (0-1); Eosinophil# 0.24 X10^3/uL; Eosinophils% 2.4 % (0-5); Hematocrit 46.9 % (40-54); Hemoglobin 14.7 g/dL (13.0-16.5); Lymphocyte # 1.28 X10^3/ul (4.0); Lymphocyte % 12.9 % (19-41); Mean Corp Hgb Conc 31.3 g/dL (32-36); Mean Corpuscular Hgb 27.7 pg (27.0-32.0); Mean Corpuscular Volume 88.5 fL (80-94); Mean Platelet Vol. 10.2 fl (6.2-12.0); Monocyte# 0.79 X10^3/uL; Monocyte% 7.9 % (0-10); NRBC Flagged by Analyzer 0 % (0-5); Neutrophil # 7.58 X10^3/uL (2.7-7.7); Neutrophil % 76.3 % (47-70); Platelet Count 162 K/mm3 (150-450); RBC Distribution Width SD 45.3 fl (35.1-43.9); White Blood Count 9.9 K/mm3 (4.4-11.0)
--- NOTE | 2020-01-04 | RAD_ITS ---
STUDY: X-RAY CHEST REASON FOR EXAM: Male, 44 years old. Cough and wheezing. TECHNIQUE: PA and lateral views of the chest. COMPARISON: None. FINDINGS: The lungs are clear and expanded. There is no demonstrated pleural abnormality. Normal size heart. Normal mediastinum and dunia. Normal visualized pulmonary arteries. Normal visualized aortic arch and descending thoracic aorta. There are diffuse degenerative changes of the visualized thoracic spine. Normal visualized ribs, clavicles, and shoulders. There is no demonstrated abnormality of the visualized soft tissue structures of the upper abdomen. RAD/Chest PA and Lateral IMPRESSION: No active pulmonary disease. Electronically Signed: Chris Aguilera MD at 0:30 EST Tel , Service support ,
[2020-01-04] MEDS: Lidocaine 5% Patch 1 PATCH TOPICAL (00:50)
[2020-01-04 00:59] LABS: ALB/GLOB Ratio 1.1 RATIO (0.9-2.4); AST(SGOT) 22 U/L (15-37); Alanine Aminotransfer ALT/SGPT 29 U/L (16-61); Albumin, Serum 3.8 g/dL (3.2-5.0); Alkaline Phosphatase 113 U/L (45-117); Anion Gap 3 (5-15); BUN 17 mg/dL (7-18); BUN/Creat Ratio 19.7 RATIO (10-20); Calcium,Total 8.8 mg/dL (8.5-10.1); Chloride 108 mmol/L (98-107); Creatinine, Serum 0.86 mg/dL (0.70-1.30); EST Glomerular Filtration Rate 102 mL/min (>60); Est Glom Filt Rate - Afr Amer 123 mL/min (>60); Estimated Creatinine Clearance 109.61 ml/min; Globulin 3.6 g/dL (2.2-4.2); Glucose 82 mg/dL (74-106); Potassium 4.2 mmol/L (3.5-5.1); Protein, Total 7.4 g/dL (6.4-8.2); Sodium Level 140 mmol/L (136-145)
[2020-01-04] MEDS: predniSONE 20 MG Tablet 40 MG PO (02:13)
[2020-01-04 02:16] VITALS: BP 130/90; PULSE 86; RESP 16; O2SAT 95
== END 2020-01-04 02:22 | disposition home or self-care (01) ==
PROVIDERS: Emergency Provider Emergency Medicine; PCP Family Medicine
DX: J40 Bronchitis, not specified as acute or chronic (principal); R07.89 Other chest pain; E66.9 Obesity, unspecified
CPT/HCPCS: 71046; 80053; 84484; 85025; 87804; 93005; 94640; 96361; 96374; 99285; J7030; A4216

== ENCOUNTER 2020-02-03 00:30 | Emergency (ER) | payer MEDICAID, SELFPAY ==
[2020-02-03 00:31] VITALS: BP 163/89; PULSE 80; RESP 16; TEMP 36.7; O2SAT 97; BMI 61.0
--- NOTE | 2020-02-03 00:42 | ED.DCSUM_ITS ---
History of Present Illness Chief Complaint: Back Informant: Patient Onset: Yesterday Current Severity: Moderate Maximum Severity: Moderate Narrative: Patient presents with increased low back pain after a fall. He states he was helping load a junk car onto a trailer. He was walking down the metal ramp when his feet went out from underneath him. He fell to the ground and struck his back against the corner of the trailer. He has pain that radiates down both legs to the level of the knees. He denies bowel or bladder control issues. He does have a history of back problems, however has never had injections or surg eries. He has taken naproxen as well as ibuprofen today. - Past Medical History (1) Anxiety Status: Chronic (2) Depression Status: Chronic (3) History of kidney cancer Status: Chronic (4) Hx of partial nephrectomy Status: Chronic Comment: Right 2017 (5) Hx of umbilical hernia repair Status: Chronic Comment: 2011 Past Medical History - Allergies and Home Meds Allergies/Adverse Reactions: Allergies hydrocortisone Allergy (Verified 02/03/20 00:33) Rash tramadol Adverse Reaction (Verified 02/03/20 00:33) Nausea Primary Care Physician: Jameson Sood MD [Primary Care Provider] - Prior records reviewed: Yes Surgical History: noncontributory, - - Ventral hernia Lives: Spouse/ Significant Other Smoking Status: Never smoker Review of Systems General: Denies: Chills, Fever Eyes: Denies: Visual changes - bilaterally ENT: Denies: Bilateral ear pain Cardiovascular: Denies: Chest pain Respiratory: Denies: Dyspnea, Cough Gastrointestinal: Denies: Abdominal pain, Nausea, Vomiting, Diarrhea Musculoskeletal: Reports: Back pain, Extremity Pain. Denies: Swelling Skin: Denies: Rash Neurological: Denies: Headache, Weakness, Parasthesia Psych: Denies: Depression Allergy: Denies: Uticaria Physical Exam Vital Signs/Narrative: Vital Signs Temp Pulse Resp BP Pulse Ox 02/03/20 00:31 98.0 F 80 16 163/89 H 97 Inital Vital Signs reviewed: Yes General: Well nourished, Well developed Head: Normocephalic ENT: Moist mucous membranes Neck: Supple Cardiovascular: Regular rate, Regular rhythm Respiratory: No distress, CTA bilaterally Abdomen: Soft, Nontender Back: - - Tenderness to palpation to the lumbar spine, both midline as well as paraspinal, left greater than right. No abrasions or ecchymoses noted. Extremities: Nontender Skin: Normal color Neurological: Alert, Oriented x3, Normal Strength, Normal Sensation, - - Strong distal pulses Psychological: Normal affect Diagnostic/Tx/Re-eval Lumbar spine x-rays are reviewed by myself. No evidence of compression fracture. - Medical Decision Making Patient is given Charlotte here for pain. He will be given a prescription for 10 tabs at home. We did discuss not using naproxen and ibuprofen at the same time due to concerns for renal function. He voices understanding and agreement. ED Disposition - Plan for ED Patient: Disposition: Home or Assisted Living Diagnosis: Back pain Instructions: Back Sprain/Strain Prescriptions: Hydrocodone Bitart/Apap 5-325 [Charl[place] 5MG-325MG] 1 tablet PO Q6H PRN PRN 3 Days #10 tablet PRN Reason: Pain Transmission Status: Sent to [facility]30 Referrals: Jameson Sood MD [Primary Care Provider] - 1 Week if not improving
--- NOTE | 2020-02-03 00:42 | RAD_ITS ---
STUDY: X-RAY - LUMBAR SPINE REASON FOR EXAM: Male, 44 years old. 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 COMPARISON: CT scan abdomen and pelvis 12/10/ FINDINGS: Normal lumbar lordosis. There is no substantial scoliosis. There is a normal alignment of the vertebrae. Normal vertebral bodies. There is mild multilevel spondylosis.. Normal disc space heights. There are degenerative changes of facet joints in the mid and lower spine. The soft tissue structures are unremarkable. RAD/Lumbar Spine 2 or 3 Views IMPRESSION: Degenerative changes of the spine, as detailed above. No demonstrated fracture or subluxation. Electronically Signed: Kyle Reynolds MD at 1:07 EDT , Service support ,
[2020-02-03] MEDS: HYDROcodone Bitartrate/Apap 5/325 Tablet PO (00:46)
[2020-02-03 01:14] VITALS: BP 158/60; PULSE 78; RESP 18; O2SAT 97
== END 2020-02-03 01:15 | disposition home or self-care (01) ==
PROVIDERS: Emergency Provider Emergency Medicine; PCP Family Medicine
DX: M54.9 Dorsalgia, unspecified (principal); F32.9 Major depressive disorder, single episode, unspecified; F41.9 Anxiety disorder, unspecified; G89.29 Other chronic pain; Z85.528 Personal history of other malignant neoplasm of kidney; Z88.5 Allergy status to narcotic agent; Z90.5 Acquired absence of kidney; Z88.8 Allergy status to other drugs, medicaments and biological substances
CPT/HCPCS: 72100; 99283

== ENCOUNTER 2020-03-14 17:41 | Emergency (ER) | payer MEDICAID, SELFPAY ==
[2020-03-14 17:41] VITALS: BP 110/64; PULSE 90; RESP 20; TEMP 36.4; O2SAT 94; BMI 59.5
--- NOTE | 2020-03-14 17:55 | ED.DCSUM_ITS ---
- ER Visit Summary Date of Service: 03/14/20 Chief Complaint: Dental pain History of Present Illness: The patient is a 44 M who presents with dental pain that is been getting worse over the past week. Patient describes the pain is sharp and aching. Patient states the pain is over the bilateral lower canines and first premolars as well as the left upper canine and first premolar. Patient states he has attempted to contact his dentist but they were not in and they have not returned his call. Patient admits to hot and cold sensitivity. Patient denies any fevers or chills. Patient denies any jaw swelling. Patient denies any facial swelling. Physical Examination: All signs are stable. Patient is afebrile. Patient is in no acute distress. Oral mucosa is pink and moist. There are multiple dental caries over the lower canines and first premolars as well as the left upper canine, first premolar, and second molar. There is some mild gingival edema. There is no fluctuance or abscess formation. Oropharynx is clear. Neck is supple. Trachea is midline. There is no JVD or lymphadenopathy appreciated. There is no sublingual edema or erythema. There is no evidence of Estevan angina. Heart was regular rate and rhythm. Lungs are clear and equal bilateral. Abdomen is soft and nontender. Cranial nerves II through XII are intact. There are no focal motor or sensory deficits. Emergency Department Course and Treatment: Patient was given a prescription for Pen-Vee K and Tylenol 3. Patient was given his first dose of Pen-Vee K here. Patient was instructed to continue to contact his dentist for further treatment. Patient understood and was agreeable with the plan. All questions were answered. Disposition: Discharge home Impression: Infected dental caries This note was generated with [employer] dictation software. It may contain incorrect words, spelling, and punctuation that were not noted in review of the chart prior to signing ED Disposition - Plan for ED Patient: Disposition: Home or Assisted Living Diagnosis: Infected dental caries Instructions: ED Tooth Pain Prescriptions: Penicillin V Potassium 500 mg PO 4X/DAY #40 tab Prescription Printed Acetaminophen/Codeine #3 [Tylenol#3] 1 tab PO Q6H PRN PRN 3 Days #12 tab PRN Reason: Pain Score 1-10/10 Prescription Printed Referrals: Jameson Sood MD [Primary Care Provider] - Dentist,Your [STAFF PHYSICIAN] - 5-7 Days
[2020-03-14] MEDS: Penicillin Vk 250 MG Tablet 500 MG PO (18:38)
== END 2020-03-14 18:38 | disposition home or self-care (01) ==
LOC: ED 18:26
PROVIDERS: Emergency Provider Emergency Medicine; PCP Family Medicine
DX: K04.7 Periapical abscess without sinus (principal); E66.9 Obesity, unspecified; H92.02 Otalgia, left ear; F32.9 Major depressive disorder, single episode, unspecified; F41.9 Anxiety disorder, unspecified; Z85.528 Personal history of other malignant neoplasm of kidney
CPT/HCPCS: 99283

== ENCOUNTER 2020-03-20 09:48 | Emergency (ER) | payer MEDICAID, SELFPAY ==
[2020-03-20 09:49] VITALS: BP 157/101; PULSE 78; RESP 20; TEMP 36.4; O2SAT 98; BMI 129.0
--- NOTE | 2020-03-20 10:10 | ED.DCSUM_ITS ---
History of Present Illness Chief Complaint: Dental Narrative: Patient presenting for evaluation due to dental pain. Patient reports that he has been dealing with dental pain over the course of about the last week or so. He reports that he is attempting to get in with his dentist, they told him that they will start taking appointments next week. Patient states that his pain is bilaterally in his mouth, right being worse than left. He was seen in the emergency department, and was placed on a course of antibiotics and pain medication. He reports that he completed his course of penicillin, and is also out of his pain medication. Patient denies any fevers or difficulty swallowing. Review of systems otherwise negative. Past Medical History - Allergies and Home Meds Allergies/Adverse Reactions: Allergies hydrocortisone Allergy (Verified 03/14/20 17:41) Rash tramadol Adverse Reaction (Verified 03/14/20 17:41) Nausea Primary Care Physician: Jameson Sood MD [Primary Care Provider] - Past Medical History: - - Past history of kidney cancer with partial nephrectomy Surgical History: noncontributory, - - Ventral hernia Smoking Status: Never smoker Review of Systems All systems negative except as indicated General: Denies: Chills, Fever, Sweats Eyes: Denies: Visual changes - bilaterally, Diplopia ENT: Reports: - - Dental pain Cardiovascular: Denies: Chest pain, Palpitations Respiratory: Denies: Dyspnea, Cough, Dyspnea on exertion Gastrointestinal: Denies: Abdominal pain, Nausea, Vomiting, Diarrhea, Melena, Hematochezia Genitourinary: Denies: Dysuria, Hematuria, Frequency Musculoskeletal: Denies: Back pain, Extremity Pain Skin: Denies: Rash, Wounds Neurological: Denies: Headache, Weakness, Numbness Physical Exam Vital Signs/Narrative: Vital Signs Temp Pulse Resp BP Pulse Ox 03/20/20 09:49 97.6 F L 78 20 H 157/101 H 98 Inital Vital Signs reviewed: Yes General: Well nourished, Well developed, Obese Head: Normocephalic, Atraumatic ENT: Moist mucous membranes Mouth/Throat: Gingivitis, - - Patient does have evidence of dental decay of his right mandibular first molar and left maxillary canine tooth. No evidence of focal abscesses. Sublingual space is soft normal posterior oropharynx normal Stensen's duct. Neck: Supple Cardiovascular: Regular rate, Regular rhythm Respiratory: No distress Extremities: Nontender Skin: Normal color Neurological: Alert, Oriented x3 Diagnostic/Tx/Re-eval - Medical Decision Making Patient presented secondary to dental pain. He just completed a course of penicillin. Patient was placed on a course of clindamycin, he will be sent home with Naprosyn for treatment of pain. Reviewed the patient's prescription reporting record, he has multiple visits to the emergency department for non- verifiable pain complaints, and has 14 prescribers on his prescription reporting record. ED Disposition - Plan for ED Patient: Disposition: Home or Assisted Living Diagnosis: Pain, dental Instructions: ED CAV[facility] Dental Prescriptions: Clindamycin [Cleocin] 300 mg PO 4X/DAY #80 cap Prescription Printed Naproxen [Naprosyn] 500 mg PO BID PRN #20 tab Prescription Printed Referrals: Jameson Sood MD [Primary Care Provider] - As Needed
== END 2020-03-20 10:23 | disposition home or self-care (01) ==
PROVIDERS: Emergency Provider Emergency Medicine; PCP Family Medicine
DX: K08.89 Other specified disorders of teeth and supporting structures (principal); E66.9 Obesity, unspecified; Z85.528 Personal history of other malignant neoplasm of kidney; Z88.5 Allergy status to narcotic agent; Z88.8 Allergy status to other drugs, medicaments and biological substances; Z90.5 Acquired absence of kidney
CPT/HCPCS: 99282

== ENCOUNTER 2020-03-22 12:00 | Emergency (ER) | payer MEDICAID, SELFPAY ==
[2020-03-22 12:01] VITALS: BP 133/78; PULSE 89; RESP 17; TEMP 36.4; O2SAT 96; BMI 63.3
--- NOTE | 2020-03-22 12:17 | ED.VISSUMM ---
- ER Visit Summary Date of Service: 03/22/20 Chief Complaint: Rash and back pain History of Present Illness: The patient is a [address] Sood. He reports that he thinks that he has poison chelle. States that over the weekend he was cutting up a tree that had fallen. He states that there were ramesh, but no leaves so he does not know if that was poison chelle. States that he rinsed his hands off with water and urinated. He developed a rash in his groin yesterday. States that he woke up today and it is on both forearms and his his face. Patient reports that when he bent over to put on his shoes to come to the emergency department he had the abrupt onset of back pain. States 10 out of 10 severity. He has not taken anything for it. Is increased with movement. Is decreased with rest. Denies any radiation to his legs. No numbness, tingling, or weakness in his legs. No groin numbness. No problems with his bowels or his bladder. Physical Examination: Vitals: Stable. Afebrile. General: A&O x 3. NAD. Cardiovascular exam: Regular rate and rhythm, no murmur, rub or gallop. Respiratory exam: Clear to auscultation bilaterally. No wheezes or stridor. Abdominal exam: Soft, nontender, nondistended, normal bowel sounds. No peritoneal signs. Back: Diffuse moderate tenderness to palpation over the lumbar spine and the paraspinous musculature in the lumbar region. No point tenderness. Negative straight leg bilaterally. 5/5 DF, PF, EHL bilaterally. Normal sensation to light touch throughout. Extremity: No clubbing, cyanosis, or edema. Skin: Erythematous rash to the anterior wrist bilaterally, right distal bicep, above his left eye, and the inguinal region left greater than right. There are no obvious vesicular lesions. However these areas are excoriated. Emergency Department Course and Treatment: Patient's history is consistent with poison chelle dermatitis. He was given Kenalog IM. He was given Tylenol and naproxen p.o. for his back pain. I do not think opiate-based medications are warranted or in his best interest. Treatment Plan: Patient will be discharged with symptomatic care. Calamine lotion. Tylenol and/or ibuprofen for his back pain. Follow-up with his primary care physician 1 week if not improving. Return to the emergency department for any worsening symptoms. Disposition: To home in improved and stable condition. Impression: 1. Poison chelle dermatitis. 2. Low back pain. This note was generated with [employer] dictation software. It may contain incorrect words, spelling, and punctuation that were not noted in review of the chart prior to signing ED Disposition - Plan for ED Patient: Instructions: ED Dermatitis Poison Chelle, ED Spasm Back No Trauma Referrals: Jameson Sood MD [Primary Care Provider] - 1 Week if not improving
[2020-03-22] MEDS: Acetaminophen 325 MG Tablet 1000 MG PO (12:33)
[2020-03-22] MEDS: Triamcinolone Acetonide 40 MG/ML Vial 80 MG IM (12:34)
[2020-03-22] MEDS: Naproxen 250 MG Tablet 500 MG PO (12:34)
[2020-03-22 13:03] VITALS: BP 130/99; PULSE 87; RESP 16; O2SAT 95
== END 2020-03-22 13:04 | disposition home or self-care (01) ==
LOC: ED 12:33
PROVIDERS: Emergency Provider Emergency Medicine; PCP Family Medicine
DX: L23.7 Allergic contact dermatitis due to plants, except food (principal); M54.5 Low back pain; F32.9 Major depressive disorder, single episode, unspecified
CPT/HCPCS: 96372; 99283

== ENCOUNTER 2020-03-30 20:22 | Observation (INO) | payer MEDICAID, SELFPAY ==
[2020-03-30] VITALS (9 sets, daily range): BP systolic 134–169; BP diastolic 74–126; PULSE 64–80; RESP 18; TEMP 36.7–37.1; O2SAT 95–98; BMI 59.3; BMI 64.3; BMI 64.4
--- NOTE | 2020-03-30 20:57 | EKG12_ITS ---
Test Reason : DYSRHYTHMIA Blood Pressure : / mmHG Vent. Rate : 066 BPM Atrial Rate : 066 BPM P-R Int : 168 ms QRS Dur : 102 ms QT Int : 418 ms P-R-T Axes : 012 022 042 degrees QTc Int : 438 ms Normal sinus rhythm Normal ECG Confirmed by CASSIE ART, GIOVANNI ([id number]), editor book MAURO MILNER ([id number]) on 04/04/2020 3:11:54 PM Referred By: ES Confirmed By:PIOTR MATTHEWS MD
[2020-03-30] MEDS: Aspirin 81 MG TAB.CHEW 324 MG PO (21:07)
[2020-03-30] MEDS: Nitroglycerin SL (ED/IMG/CATH) 0.4 MG TABLET SUBLINGUAL ×3 (21:14→22:26)
[2020-03-30 21:18] LABS: Absolute Lymphocyte Count 1.42 X10^3/uL (0.83-4.51); Absolute Neutrophil Count 6.3 X10^3/uL (2.0-7.7); Basophil# 0.01 X10^3/uL; Basophil% 0.1 % (0-1); Eosinophil# 0.09 X10^3/uL; Eosinophils% 1.1 % (0-5); Hemoglobin 13.6 g/dL (13.0-16.5); Lymphocyte # 1.42 X10^3/ul (4.0); Mean Corp Hgb Conc 30.9 g/dL (32-36); Mean Corpuscular Hgb 27.6 pg (27.0-32.0); Mean Corpuscular Volume 89.2 fL (80-94); Mean Platelet Vol. 10.1 fl (6.2-12.0); Monocyte# 0.55 X10^3/uL; Monocyte% 6.6 % (0-10); NRBC Flagged by Analyzer 0 % (0-5); Neutrophil # 6.26 X10^3/uL (2.7-7.7); Neutrophil % 74.7 % (47-70); Platelet Count 140 K/mm3 (150-450); RBC Distribution Width CV 13.7 % (11.6-14.6); RBC Distribution Width SD 44.8 fl (35.1-43.9); Red Blood Count 4.93 M/mm3 (4.6-6.2); White Blood Count 8.4 K/mm3 (4.4-11.0)
--- NOTE | 2020-03-30 21:25 | RAD_ITS ---
STUDY: X-RAY CHEST REASON FOR EXAM: Male, 44 years old. chest pain with sob TECHNIQUE: 2 views COMPARISON: Prior chest radiograph of December 25, 2019 FINDINGS: The lungs are clear and expanded. There is no demonstrated pleural abnormality. Normal size heart. Normal mediastinum and dunia. Normal visualized pulmonary arteries. Normal visualized aortic arch and descending thoracic aorta. Normal visualized thoracic spine. Normal visualized ribs, clavicles, and shoulders. There is no demonstrated abnormality of the visualized soft tissue structures of the upper abdomen. RAD/Chest PA and Lateral IMPRESSION: Normal x-ray examination of the chest. Electronically Signed: Pati Umana MD at 21:44 EDT , Service support ,
[2020-03-30 21:36] LABS: Anion Gap 3 (5-15); BUN 12 mg/dL (7-18); BUN/Creat Ratio 14.6 RATIO (10-20); Calcium,Total 8.7 mg/dL (8.5-10.1); Chloride 107 mmol/L (98-107); Creatinine, Serum 0.82 mg/dL (0.70-1.30); EST Glomerular Filtration Rate 108 mL/min (>60); Est Glom Filt Rate - Afr Amer 130 mL/min (>60); Estimated Creatinine Clearance 111.22 ml/min; Glucose 82 mg/dL (74-106); Potassium 4.1 mmol/L (3.5-5.1); Sodium Level 142 mmol/L (136-145)
--- NOTE | 2020-03-30 22:00 | ED.VIS.CHEST ---
History of Present Illness Chief Complaint: Shortness of Breath Informant: Patient Narrative: CP since yesterday Past Medical History - Allergies and Home Meds Allergies/Adverse Reactions: Allergies hydrocortisone Allergy (Verified 03/30/20 20:25) Rash tramadol Adverse Reaction (Verified 03/30/20 20:25) Nausea Primary Care Physician: Jameson Sood MD [Primary Care Provider] - Surgical History: noncontributory, - - Ventral hernia Smoking Status: Never smoker Physical Exam Vital Signs/Narrative: Vital Signs Temp Pulse Resp BP Pulse Ox 03/30/20 21:53 80 138/74 H 03/30/20 21:14 72 163/89 H 03/30/20 21:06 97 03/30/20 20:23 98.7 F 72 18 169/126 H 98 ED Disposition - Plan for ED Patient: Referrals: Jameson Sood MD [Primary Care Provider] -
--- NOTE | 2020-03-30 22:43 | PCM.HP.STD ---
Problem List (1) Incarcerated incisional hernia Status: Resolved (2) Hx of umbilical hernia repair Status: Chronic Comment: 2011 (3) Hx of partial nephrectomy Status: Chronic Comment: Right 2018 (4) History of kidney cancer Status: Chronic (5) Abdominal pain Status: Resolved (6) Anxiety Status: Chronic (7) Depression Status: Chronic (8) Arthritis Status: Chronic (9) Chest pain Status: Acute Qualifiers: Chest pain type: unspecified Qualified Code(s): R07.9 - Chest pain, unspecified History of Present Illness Date of Admission: 03/30/20 Chief Complaint: chest pain The patient is a 44 year old M presents with chest pain. Chest pain is intermittent, but aggravated by stress. Chest pain is left sided radiating down his left arm. Associated with SOB and fatigue. He denies any sick contacts, F/C, cough. Work up in the ED was unremarkable He received ASA and NTG. Currently, his chest pain is resolved. [] Past Medical History Past Medical History (Chronic Problems): Chronic Problems (Last Reviewed 01/14/19 @ 13:33 by Deepa Meza) Hx of umbilical hernia repair (Chronic) 2011 Hx of partial nephrectomy (Chronic) Right 2018 History of kidney cancer (Chronic) Anxiety (Chronic) Depression (Chronic) Arthritis (Chronic) Medical History: Medical History (Last Reviewed 03/30/20 @ 22:[address] Sergio Macias, ) History of kidney cancer (Chronic) Z85.528 Abdominal pain (Acute) R10.9 Anxiety (Chronic) F41.9 Depression (Chronic) F32.9 Arthritis (Acute) M19.90 Allergies hydrocortisone Allergy (Verified 03/30/20 20:25) Rash tramadol Adverse Reaction (Verified 03/30/20 20:25) Nausea Home Medications: Ambulatory Orders Medication Instructions Recorded Lidocaine [Lidoderm] 1 ea TP DAILY #10 adh..patch 11/08/19 Bupropion HCl [Wellbutrin Sr] 150 mg PO DAILY 02/03/20 Hydroxyzine Pamoate [Vistaril] 25 mg PO TID 02/03/20 Penicillin V Potassium 500 mg PO 4X/DAY #40 tab 03/14/20 Clindamycin [Cleocin] 300 mg PO 4X/DAY #80 cap 03/20/20 Naproxen [Naprosyn] 500 mg PO BID PRN #20 tab 03/20/20 Surgical History: Surgical History (Last Reviewed 03/30/20 @ 22:[address] Sergio Macias DO) Hx of umbilical hernia repair (Chronic) Z98.890, Z87.19 2012 Hx of partial nephrectomy (Chronic) Z90.5 Right 2018 S/P recurrent ventral herniorrhaphy Z98.890, Z87.19 Surgical History: noncontributory, - - Ventral hernia Smoking Status: Never smoker - *Family History Paternal Family History: Family History (Last Updated 03/30/20 @ 22:[address] Sergio Macias DO) Father Diabetes Hypertension CAD (coronary artery disease) Review of Systems Constitutional: Denies: Anorexia, Night Sweats Eyes: Denies: Blurred vision, Double vision Cardiovascular: Reports: Chest Pain. Denies: Edema Respiratory: Reports: Shortness of Breath. Denies: Cough Gastrointestinal: Denies: Abdominal Pain, Nausea, Vomiting Musculoskeletal: Reports: Arm Pain - left Skin: Denies: Rash, Wounds Neurological: Denies: Numbness, Tingling, Focal weakness Psychiatric: Denies: Anxiety, Depression Hematologic/ Lymphatic: Denies: Easy Bruising, Easy Bleeding, Hx of blood clot Comment: All ROS are reviewed and otherwise negative except as above and in the HPI. VTE Information - Inpt Only VTE Present on Admission: No VTE Mechan Device Prophylaxis: None VTE Pharm Prophylaxis ordered?: No Reason prophylaxis not ordered:: Treatment Not Indicated Patient Problems: Active and Suspected Problems (Last Reviewed 01/14/19 @ 13:33 by Deepa Meza) Chest pain (Acute) - Physical Exam Vitals/I&O's: Vital Signs Temp Pulse Resp BP Pulse Ox 37.1 C 79 18 134/81 H 95 03/30/20 20:23 03/30/20 22:27 03/30/20 22:27 03/30/20 22:27 03/30/20 22:27 Oxygen Delivery Method Room Air Weight: 176.901 kg Body Mass Index (BMI) 59.3 General: Alert, Cooperative, No apparent distress HEENT: Atraumatic, Normocephalic Oral: Moist Mucosa, No Gingival or Mucosal Lesions/ Ulcerations Neck: No JVD, No Nodes Lungs: Clear to auscultation, Normal air movement, No rhonchi, No wheeze Cardiovascular: Regular rate, Regular Rhythm, Normal S1, Normal S2, No murmurs Abdomen: Bowel Sounds Present, Non Tender, Non-Distended, No Hepato-splenomegaly, Obese Extremities: No edema, No Calf Tenderness Skin: No rashes, No breakdown Musculoskeletal: No Tenderness to Palpation of Joints or Extremities, No Muscle Wasting Neurological: Sensory exam intact to light touch and pain, - - no clonsuy Psych/Mental Status: Normal Affect, Appropriate Laboratory Results 03/30/20 21:04: WBC 8.4, RBC 4.93, Hgb 13.6, Hct 44.0, MCV 89.2, MCH 27.6, MCHC 30.9 L, RDW Std Deviation 44.8 H, RDW Coeff of Roberto 13.7, Plt Count 140 L, MPV 10.1, Immature Gran % (Auto) 0.500, Neut % (Auto) 74.7 H, Lymph % (Auto) 17.0 L, [place] % (Auto) 6.6, Eos % (Auto) 1.1, Baso % (Auto) 0.1, Absolute Neuts (auto) 6.3, Absolute Lymphs (auto) 1.42, Nucleated RBC % 0 03/30/20 21:04: Sodium 142, Potassium 4.1, Chloride 107, Carbon Dioxide 32.0, Anion Gap 3 L, BUN 12, Creatinine 0.82, Estim Creat Clear Calc 111.22, Est GFR (MDRD) Af Amer 130, Est GFR (MDRD) Non-Af 108, BUN/Creatinine Ratio 14.6, Glucose 82, Calcium 8.7, Troponin I < 0.015 CXR reviewed and it showed no acute process EKG reviewed and it showed NSR w/ no acute changes. Assessment/Plan All Active Problems (Last Reviewed 01/14/19 @ 13:33 by Deepa Meza) Chest pain (Acute) Incarcerated incisional hernia (Resolved) Abdominal pain (Resolved) 1. chest pain: Heart score of 2, MELANY of 1. Atypical, however, he is morbidly obese with CAD in his father. Plan is for dobutamine stress echo on 03/31 (pt states due to his knee, he could not do a treadmill). He received ASA in ED and will continue with 81 mg daily for now. Cycle troponins,check FLP, TSH. 2. Morbid obesity: complicates overall care 3. VTE prophylaxis: low risk as observation status 4. Advanced care planning: dw patient. He wishes to be full code. OBSV E&M: 82519 Initial observation care L2
--- NOTE | 2020-03-30 23:10 | EKG12_ITS ---
Test Reason : CP ADMIT Blood Pressure : / mmHG Vent. Rate : 068 BPM Atrial Rate : 068 BPM P-R Int : 150 ms QRS Dur : 098 ms QT Int : 430 ms P-R-T Axes : 024 029 034 degrees QTc Int : 457 ms Normal sinus rhythm Normal ECG When compared with ECG of 03-JAN-2020 23:31, No significant change was found Confirmed by ALIVIA ART, IDANIA ([id number]), flight service agent MAURO MILNER ([id number]) on 04/04/2020 3:58:08 PM Referred By: DR MARTINO Confirmed By:IDANIA BUNCH MD
[2020-03-31 03:04] VITALS: PULSE 59
[2020-03-31 04:12] LABS: Cholesterol 158 mg/dL (200); High Density Lipoprotein 53 mg/dL; Thyroid Stim Hormone (TSH) 0.86 uIU/mL (0.358-3.74); Triglycerides 68 mg/dL; Very Low Density Lipoprotein 14 mg/dL (5-40)
[2020-03-31 05:00] VITALS: BP 142/87; PULSE 57; RESP 14; TEMP 36.7; O2SAT 96
[2020-03-31] MEDS: Aspirin E.C. 81 MG Tablet PO (05:07)
--- NOTE | 2020-03-31 05:55 | STEWCON_ITS ---
Reason For Study: CHEST PAIN Stress Results Protocol: Dobtuamine Stress Echo Maximum Predicted HR: 176 bpm Target HR: 150 bpm % Maximum Predicted HR: 85 % DurationHeart Rate Stage (mm:ss) (bpm) BP Dose Comment BASELINE 60 152/100 7CC DEFINITY FOR TEST STAGE 1 3:18 65 162/90 10.00 STAGE 2 3:00 96 182/70 20.00 STAGE 3 3:00 115 180/72 30.00WARM FLUSHED FEELING. SOB, STAGE 4 5:13 149 178/80 40.000.5 MG ATROPINE RECOVERY 98 124/68 Stress Duration: 14:31 mm:ss Maximum Stress HR: 149 bpm Baseline Echocardiogram Findings The estimated ejection fraction is 65 %. Stress Echo Wall motion Data Resting WM Intermediate WM Stress WM Resting Wall Motion Wall Motion Stress No regional wall motion No regional wall motion abnormalities noted. abnormalities noted. EKG Data The baseline ECG displays normal sinus rhythm. The patient was titrated from 10 mcg to a maximum of 40 mcg of dobutamine during the stress. The maximum heart rate attained was 151 beats per minute. This was 85% of maximum predicted heart rate. During dobutamine infusion, there were no ST or T wave changes noted to suggest ischemia. Interpretation Summary The estimated ejection fraction is 65 %. Normal, adequate, dobutamine echocardiogram. Negative for ischemia by EKG and echocardiographic criteria. Rare PVC noted. Hypertensive blood pressure response to dobutamine. Patient had chest discomfort during infusion which is a nonspecific finding. No associated wall motion abnormalities noted with his chest pain. Final LVEF is 75%. Decrease sensitivity due to poor echo windows requiring Definity agent. Patient tolerated procedure well. No complications. The study was technically difficult. Contrast injection was performed. Ordering Physician: Sergio Macias Performed By: Renetta Wong, NISA, RVT
--- NOTE | 2020-03-31 05:55 | EKG12_ITS ---
Test Reason : AM EKG Blood Pressure : / mmHG Vent. Rate : 063 BPM Atrial Rate : 063 BPM P-R Int : 164 ms QRS Dur : 102 ms QT Int : 446 ms P-R-T Axes : 011 018 025 degrees QTc Int : 456 ms Normal sinus rhythm Normal ECG When compared with ECG of 30-MAR-2020 23:27, MANUAL COMPARISON REQUIRED, DATA IS UNCONFIRMED Confirmed by ALIVIA ART, IDANIA ([id number]), supervising film or videotape editor MAURO MILNER ([id number]) on 04/04/2020 3:57:58 PM Referred By: DR MARTINO Confirmed By:IDANIA BUNCH MD
[2020-03-31 07:37] VITALS: PULSE 49
--- NOTE | 2020-03-31 09:22 | RAD_ITS ---
STUDY: X-RAY - LEFT SHOULDER REASON FOR EXAM: Male, 44 years old. ginger thesis, pain TECHNIQUE: 4 view(s) of the shoulder. COMPARISON: None. FINDINGS: Normal glenohumeral articulation. Normal acromioclavicular joint. Normal acromion. Normal humeral head and visualized proximal humerus. The soft tissue structures are unremarkable. Normal visualized pulmonary apex. RAD/Shoulder min 2 Views IMPRESSION: Normal x-ray examination of the shoulder. Electronically Signed: Chencho Templeton, at 10:13 EDT , Service support ,
[2020-03-31 11:00] VITALS: PULSE 79
[2020-03-31 14:30] VITALS: BP 139/73; PULSE 57; RESP 18; TEMP 36.6; O2SAT 97
--- NOTE | 2020-03-31 14:32 | DCINST_ITS ---
- Discharge Diagnoses Current Active Problems: Current Active and Chronic Problems (Last Reviewed 03/30/20 @ 22:[address] Sergio Macias, DO) Chest pain (Acute) You will use the following diet at home:: No restrictions Your food should be the consistency of: Regular Your liquids should be the consistency of: Regular/Thin Discharge Activity: Return to Normal Activity Allergies/Adverse Reactions: Allergies hydrocortisone Allergy (Verified 03/30/20 20:25) Rash tramadol Adverse Reaction (Verified 03/30/20 20:25) Nausea Medications to take at Discharge Bupropion HCl [Wellbutrin Sr] 300 mg PO DAILY 02/03/20 Hydroxyzine Pamoate [Vistaril] 25 mg PO DAILY 02/03/20 Lidocaine [Lidoderm] 1 ea TP DAILY 03/30/20 Naproxen [Naprosyn] 500 mg PO BID PRN PRN 03/30/20 Primary Care Physician: Jameson Sood MD [Primary Care Provider] - Please follow up with your Primary Care Physician in: 1-2 weeks Test Results: Test results from this visit will be discussed in further detail at your follow- up appointment, if applicable. Proposed Discharge Date: 03/31/20
--- NOTE | 2020-03-31 14:33 | PCM.DC.SUM ---
<Damien Hogan - Last Filed: 03/31/20 14:33> Discharge Date and Diagnosis Date of Admission: 03/30/20 Date of Discharge: 03/31/20 - Primary Discharge Diagnosis Active and Suspected Problems (Last Reviewed 03/30/20 @ 22:[address] Sergio Macias DO) Chest pain musculoskeletal Morbid obesity Hx renal cancer, prior partial nephrectomy Depression - Secondary Discharge Diagnosis Chronic Problems (Last Reviewed 03/30/20 @ 22:[address] Sergio Macias DO) Hx of umbilical hernia repair (Chronic) 2012 Hx of partial nephrectomy (Chronic) Right 2018 History of kidney cancer (Chronic) Anxiety (Chronic) Depression (Chronic) Arthritis (Chronic) Hospital Course and Treatment Imaging Results: 03/31/20 05:55 Stress Test Echo W/Contrast [ECHO] AM (NON MEDS) Interpretation Summary The estimated ejection fraction is 65 %. Normal, adequate, dobutamine echocardiogram. Negative for ischemia by EKG and echocardiographic criteria. Rare PVC noted. Hypertensive blood pressure response to dobutamine. Patient had chest discomfort during infusion which is a nonspecific finding. No associated wall motion abnormalities noted with his chest pain. Final LVEF is 75%. Decrease sensitivity due to poor echo windows requiring Definity agent. Patient tolerated procedure well. No complications. The study was technically difficult. Contrast injection was performed. RAD/Shoulder min 2 Views IMPRESSION: Normal x-ray examination of the shoulder. RAD/Chest PA and Lateral IMPRESSION: Normal x-ray examination of the chest. Operations: None Procedures: Stress test Summary of Care Provided: Hospital Course: The patient is a 44 year old M with pmhx of renal cancer with prior partial nephrectomy, hx depression, hx morbid obesity who presented to the ER with c/o chest and left arm pain. The pain woke him up from sleep and felt like an ache in his left chest, sharp pain in the left shoulder radiating with shooting pain into the fingertips, and he woke up very hot and sweaty soaking the pillow case. The patient does have a paternal hx of CAD. He does not smoke. In the ER he had a negative troponin, EKG, and chest xray. He was admitted for chest pain workup. No events on tele. He had negative trop x3. He underwent a stress echo the following day which was negative. We also checked an xray of the left shoulder which was negative. He was felt to have had musculoskeletal pain. He was discharged home in stable condition. He will need follow up with his PCP in 1-2 weeks. This patient was seen by Damien Hogan PA-C under the supervision of Dr. Serrano. [] - Physical Exam Vitals/I&O's: Vital Signs Temp Pulse Resp BP Pulse Ox 98.0 F 79 14 142/87 H 96 03/31/20 05:00 03/31/20 11:00 03/31/20 05:00 03/31/20 05:00 03/31/20 05:00 Oxygen Delivery Method Room Air Weight: 423 lb 8.128 oz Body Mass Index (BMI) 64.3 Intake and Output for Last 24 Hours 03/29/20 03/30/20 03/31/20 23:59 23:59 23:59 Intake Total 240 / 240 160 / 160 Balance 240 / 240 160 / 160 General: Alert, Oriented x3, Cooperative HEENT: Atraumatic, PERRLA, EOMI, Normocephalic Neck: Supple, No JVD, Negative Carotid Bruits Lungs: Clear to auscultation, Normal air movement Cardiovascular: Regular rate, No murmurs Abdomen: Bowel Sounds Present, Soft, Non Tender, Obese Extremities: No edema, Capillary Refill Less than 3 Seconds Skin: No rashes, No breakdown Musculoskeletal: No Tenderness to Palpation of Joints or Extremities Neurological: Cranial nerves II-XII grossly intact Psych/Mental Status: Appropriate, Anxious, Alert and oriented to time, place, person, mood and affect Laboratory Results 03/30/20 21:04: WBC 8.4, RBC 4.93, Hgb 13.6, Hct 44.0, MCV 89.2, MCH 27.6, MCHC 30.9 L, RDW Std Deviation 44.8 H, RDW Coeff of Roberto 13.7, Plt Count 140 L, MPV 10.1, Immature Gran % (Auto) 0.500, Neut % (Auto) 74.7 H, Lymph % (Auto) 17.0 L, Tucker % (Auto) 6.6, Eos % (Auto) 1.1, Baso % (Auto) 0.1, Absolute Neuts (auto) 6.3, Absolute Lymphs (auto) 1.42, Nucleated RBC % 0 03/30/20 21:04: Sodium 142, Potassium 4.1, Chloride 107, Carbon Dioxide 32.0, Anion Gap 3 L, BUN 12, Creatinine 0.82, Estim Creat Clear Calc 111.22, Est GFR (MDRD) Af Amer 130, Est GFR (MDRD) Non-Af 108, BUN/Creatinine Ratio 14.6, Glucose 82, Calcium 8.7, Troponin I < 0.015 03/31/20 00:26: Troponin I < 0.015 03/31/20 03:20: Triglycerides 68, Cholesterol 158, LDL Cholesterol 91, VLDL Cholesterol 14, HDL Cholesterol 53, TSH 0.86 03/31/20 03:20: Troponin I < 0.015 Current Medications Acetaminophen (Tylenol) 650 mg PO Q6H PRN PRN PRN Reason: Pain Score 1-10/Temp > 100.7 F Aspirin (Ecotrin) 81 mg PO DAILY@0800 [facility] Last Admin: 03/31/20 05:07 Dose: 81 mg Documented by: Dextrose (D50w Syringe) 0 gm IV X1 PRN; Protocol PRN Reason: Hypoglycemia Glucagon () 1 mg IM .X1 PRN PRN Reason: Hypoglycemia Sodium Chloride () 250 mls @ 15 mls/hr IV .[id number] PRN PRN Reason: Saline Flush Sodium Chloride () 250 mls @ 15 mls/hr IV .[id number] PRN PRN Reason: Additional IVPB Infusion Nitroglycerin (Nitrostat) 0.4 mg SUBLINGUAL Q5M PRN PRN Reason: CHEST PAIN Nutritional Formula (Lactose Free) (Ensure Enlive) 120 ml PO 4X/DAY [facility] Last Admin: 03/31/20 13:59 Dose: Not Given Documented by: Ondansetron HCl (Zofran) 4 mg IV Q8H PRN PRN PRN Reason: NAUSEA/VOMITING Oxycodone HCl (Oxyir) 5 mg PO Q4H PRN PRN PRN Reason: Pain Score 4-5/10 Oxycodone HCl (Oxyir) 10 mg PO Q4H PRN PRN PRN Reason: Pain Score 6-10/10 Sodium Chloride () 10 - 40 ml IV UD PRN PRN Reason: SALINE FLUSH Discharge Diet: Low fat/ Low Cholesterol, 2000 mg Sodium Diet Discharge Activity: Return to Normal Activity Home Medications: Medications to take at Discharge Bupropion HCl [Wellbutrin Sr] 300 mg PO DAILY 02/03/20 Hydroxyzine Pamoate [Vistaril] 25 mg PO DAILY 02/03/20 Lidocaine [Lidoderm] 1 ea TP DAILY 03/30/20 Naproxen [Naprosyn] 500 mg PO BID PRN PRN 03/30/20 Primary Care Physician: Jameson Sood MD [Primary Care Provider] - Please follow up with your Primary Care Physician in: 1-2 weeks Disposition: Home Minutes spent on discharge:: 35 Patient Condition:: Stable Medical Necessity - Tobacco Use Smoking Status: Never smoker Meaningful Use Info Meaningful Use Diagnoses (Choose all that apply): None applicable <Wilberto Serrano E - Last Filed: 03/31/20 15:17> Discharge Date and Diagnosis - Secondary Discharge Diagnosis Chronic Problems (Last Reviewed 03/30/20 @ 22:[address] Sergio Macias, DO) Hx of umbilical hernia repair (Chronic) 2011 Hx of partial nephrectomy (Chronic) Right 2018 History of kidney cancer (Chronic) Anxiety (Chronic) Depression (Chronic) Arthritis (Chronic) Hospital Course and Treatment Imaging Results: 03/31/20 09:22 Shoulder min 2 Views [RAD] Urgent Summary of Care Provided: Hospitalist note: Discharge summary above reviewed and I concur with above discharge treatment plan. Patient presented to the emergency room because of chest pain and left upper extremity pain with tingling. He denied any neck pain, fall or trauma. His EKG revealed normal sinus rhythm without evidence of acute segment changes. Troponin was negative x3. Chest x-ray showed no acute findings. Routine blood was unremarkable. Lipid profile revealed total cholesterol of 158, LDL cholesterol of 91 and HDL cholesterol of 53. Patient underwent stress echocardiogram that was normal, adequate, dobutamine echocardiogram and blood was negative for ischemia by EKG and echocardiographic criteria. ACS ruled out. His chest pain and left arm pain attributed to musculoskeletal pain. Patient discharged home in a stable condition, recommended from with PCP in 1 to 2 weeks. - Physical Exam General: Alert, Oriented x3, Cooperative, No apparent distress. HEENT: Atraumatic, PERRLA, EOMI. Neck: Supple, No JVD, Negative Carotid Bruits, Trachea Midline, Thyroid Normal. Lungs: Clear to auscultation, Normal air movement, No rhonchi, No wheeze, No rales. Cardiovascular: Regular rate, Regular Rhythm, Normal S1, Normal S2, PMI Normal. Abdomen: Bowel Sounds Present, Soft, Non Tender, Non-Distended, No Hepato-splenomegaly, obese. Extremities: No clubbing, No cyanosis, No edema Skin: No rashes, No breakdown Neurological: Cranial nerves are intact, neuro grossly intact Vital Signs are stable. This note was generated with [employer] dictation software. It may contain incorrect words, spelling, and punctuation that were not noted in checking the note before signing. - Physical Exam Vitals/I&O's: Vital Signs Temp Pulse Resp BP Pulse Ox 97.8 F 57 L 18 139/73 H 97 03/31/20 14:57 03/31/20 14:57 03/31/20 14:57 03/31/20 14:57 03/31/20 14:57 Oxygen Delivery Method Room Air Weight: 423 lb 8.128 oz Body Mass Index (BMI) 64.3 Intake and Output for Last 24 Hours 03/29/20 03/30/20 03/31/20 23:59 23:59 23:59 Intake Total 240 / 240 160 / 160 Balance 240 / 240 160 / 160 Laboratory Results 03/30/20 21:04: WBC 8.4, RBC 4.93, Hgb 13.6, Hct 44.0, MCV 89.2, MCH 27.6, MCHC 30.9 L, RDW Std Deviation 44.8 H, RDW Coeff of Roberto 13.7, Plt Count 140 L, MPV 10.1, Immature Gran % (Auto) 0.500, Neut % (Auto) 74.7 H, Lymph % (Auto) 17.0 L, Tucker % (Auto) 6.6, Eos % (Auto) 1.1, Baso % (Auto) 0.1, Absolute Neuts (auto) 6.3, Absolute Lymphs (auto) 1.42, Nucleated RBC % 0 03/30/20 21:04: Sodium 142, Potassium 4.1, Chloride 107, Carbon Dioxide 32.0, Anion Gap 3 L, BUN 12, Creatinine 0.82, Estim Creat Clear Calc 111.22, Est GFR (MDRD) Af Amer 130, Est GFR (MDRD) Non-Af 108, BUN/Creatinine Ratio 14.6, Glucose 82, Calcium 8.7, Troponin I < 0.015 03/31/20 00:26: Troponin I < 0.015 03/31/20 03:20: Triglycerides 68, Cholesterol 158, LDL Cholesterol 91, VLDL Cholesterol 14, HDL Cholesterol 53, TSH 0.86 03/31/20 03:20: Troponin I < 0.015 Disposition: Home Minutes spent on discharge:: 26 Patient Condition:: Stable Meaningful Use Info Meaningful Use Diagnoses (Choose all that apply): None applicable OBSV E&M: 11086 Observation care discharge
--- NOTE | 2020-03-31 14:46 | PHA.DC.MR ---
Pharmacy Service has performed discharge medication reconciliation for this patient. The patient's discharge medication list was reviewed for discrepancies and discrepancies were resolved. Home Medications Bupropion HCl [Wellbutrin Sr] 300 mg PO DAILY 02/03/20 Hydroxyzine Pamoate [Vistaril] 25 mg PO DAILY 02/03/20 Lidocaine [Lidoderm] 1 ea TP DAILY 03/30/20 Naproxen [Naprosyn] 500 mg PO BID PRN PRN 03/30/20
[2020-03-31 14:57] VITALS: BP 139/73; PULSE 57; RESP 18; TEMP 36.6; O2SAT 97
== END 2020-03-31 14:32 | disposition home or self-care (01) ==
LOC: ED 21:39 → PCU 23:30
PROVIDERS: Emergency Provider Emergency Medicine; PCP Family Medicine; Visit Provider Hospitalist
DX: R07.89 Other chest pain (principal); E66.01 Morbid (severe) obesity due to excess calories; F32.9 Major depressive disorder, single episode, unspecified; F41.9 Anxiety disorder, unspecified; M19.90 Unspecified osteoarthritis, unspecified site; M25.512 Pain in left shoulder; R53.83 Other fatigue; R06.02 Shortness of breath; Z85.528 Personal history of other malignant neoplasm of kidney; Z90.5 Acquired absence of kidney; Z79.899 Other long term (current) drug therapy; Z68.44 Body mass index [BMI] 60.0-69.9, adult
CPT/HCPCS: 36415; 71046; 73030; 80048; 80061; 84443; 84484; 85025; 93005; 93017; 93350; 99218; 99285; J7040; Q9957; A4216; C8928; G0378

== ENCOUNTER 2020-04-16 17:40 | Emergency (ER) | payer MEDICAID, SELFPAY ==
[2020-03-30 23:11] VITALS: BMI 64.3
[2020-04-16 17:40] VITALS: BP 156/114; PULSE 82; RESP 20; TEMP 36.1; O2SAT 97; BMI 59.3
--- NOTE | 2020-04-16 17:57 | ED.DCSUM_ITS ---
History of Present Illness Chief Complaint: Back Informant: Patient Onset: Yesterday Current Severity: Moderate Maximum Severity: Moderate Narrative: Patient present secondary right posterior lateral rib pain. Patient states he cut down a tree at his home. His son was trying to cut up the tree with an ax. Patient was showing him how to use the wedges and a sledgehammer. After swinging a sledgehammer approximate 25 times he felt a pulling sensation in his right lateral posterior ribs. Patient has increased pain with deep breath, but does not feel short of breath. He did take naproxen this morning for pain. - Past Medical History (1) Anxiety Status: Chronic (2) Arthritis Status: Chronic (3) Depression Status: Chronic (4) History of kidney cancer Status: Chronic (5) Hx of partial nephrectomy Status: Chronic Comment: Right 2018 Past Medical History - Allergies and Home Meds Allergies/Adverse Reactions: Allergies hydrocortisone Allergy (Verified 03/30/20 20:25) Rash tramadol Adverse Reaction (Verified 03/30/20 20:25) Nausea Primary Care Physician: Jameson Sood MD [Primary Care Provider] - Prior records reviewed: Yes Surgical History: noncontributory, - - Ventral hernia Lives: With Family Smoking Status: Former smoker Review of Systems General: Denies: Chills, Fever Eyes: Denies: Visual changes - bilaterally ENT: Denies: Bilateral ear pain Cardiovascular: Reports: Chest pain - Right posterior lateral ribs Respiratory: Denies: Dyspnea, Cough Gastrointestinal: Denies: Abdominal pain, Nausea, Vomiting, Diarrhea Musculoskeletal: Denies: Swelling, Extremity Pain Neurological: Denies: Headache Hematologic: Denies: Easy bruising, Easy bleeding Allergy: Denies: Uticaria Physical Exam Vital Signs/Narrative: Vital Signs Temp Pulse Resp BP Pulse Ox 04/16/20 17:40 97 F L 82 20 H 156/114 H 97 Inital Vital Signs reviewed: Yes General: Well nourished, Well developed Head: Normocephalic ENT: Moist mucous membranes Neck: Supple Cardiovascular: Regular rate, Regular rhythm Respiratory: No distress, CTA bilaterally, Chest tenderness - Reproducible chest wall tenderness right posterior lateral ribs. No overlying skin change. Abdomen: Soft, Nontender Extremities: Nontender Skin: Normal color Neurological: Alert, Oriented x3 Psychological: Normal affect Diagnostic/Tx/Re-eval - Medical Decision Making Patient was instructed on correct dosing of naproxen. He will be given Tylenol here along with a Lidoderm patch. He has follow-up scheduled with his doctor deloris salazar the next 2 days. I do not think narcotics or imaging are indicated at this time. ED Disposition - Plan for ED Patient: Disposition: Home or Assisted Living Diagnosis: Chest wall muscle strain Instructions: ED CHEST CONTUSION Referrals: Jameson Sood MD [Primary Care Provider] - Keep Trung appointment
[2020-04-16] MEDS: Acetaminophen 500 MG Tablet 1000 MG PO (18:05)
[2020-04-16] MEDS: Lidocaine 5% Patch 1 PATCH TOPICAL (18:05)
== END 2020-04-16 18:08 | disposition home or self-care (01) ==
LOC: ED 18:06
PROVIDERS: Emergency Provider Emergency Medicine; PCP Family Medicine
DX: S29.011A Strain of muscle and tendon of front wall of thorax, initial encounter (principal); X50.3XXA Overexertion from repetitive movements, initial encounter; Y93.H9 Activity, other involving exterior property and land maintenance, building and construction; Y92.007 Garden or yard of unspecified non-institutional (private) residence as the place of occurrence of the external cause; Y99.8 Other external cause status; F32.9 Major depressive disorder, single episode, unspecified; F41.9 Anxiety disorder, unspecified; M19.90 Unspecified osteoarthritis, unspecified site; Z85.528 Personal history of other malignant neoplasm of kidney; Z87.891 Personal history of nicotine dependence; Z88.5 Allergy status to narcotic agent; Z88.8 Allergy status to other drugs, medicaments and biological substances; Z90.5 Acquired absence of kidney
CPT/HCPCS: 99283

== ENCOUNTER → 2020-06-01 17:50 | Outpatient (CLI) | payer MEDICAID, SELFPAY | PROVIDERS: PCP Family Medicine; Referring Provider Family Medicine; Visit Provider Family Medicine | DX: Z20.828 Contact with and (suspected) exposure to other viral communicable diseases (principal) | CPT/HCPCS: 87635; 94799; G2023; U0003 ==

== ENCOUNTER 2020-07-04 19:15 | Emergency (ER) | payer MEDICAID, SELFPAY ==
[2020-07-04 19:16] VITALS: BP 159/125; PULSE 74; RESP 22; TEMP 36.3; O2SAT 96; BMI 62.4
--- NOTE | 2020-07-04 19:37 | RAD_ITS ---
STUDY: X-RAY - UNILATERAL RIBS ( LEFT ) WITH CHEST REASON FOR EXAM: Male, 45 years old. rib pain after fall TECHNIQUE - RIBS: 3 view(s) of the ribs. TECHNIQUE - CHEST: Single frontal view of the chest. COMPARISON: None. FINDINGS - RIBS: Normal visualized ribs without a demonstrated fracture. FINDINGS - CHEST: The lungs are clear and expanded. There is no demonstrated pleural abnormality. Normal size heart. Normal mediastinum and dunia. Normal visualized pulmonary arteries. Normal visualized aortic arch and descending thoracic aorta. Normal visualized thoracic spine. Normal visualized ribs, clavicles, and shoulders. There is no demonstrated abnormality of the visualized soft tissue structures of the upper abdomen. RAD/Ribs Uni Min 3V w/PA Chest IMPRESSION: RIBS: Normal x-ray examination of the ribs. CHEST: Normal x-ray examination of the chest. Electronically Signed: Jameson Pool MD at 20:01 EDT Tel , Service support ,
[2020-07-04] MEDS: HYDROcodone Bitartrate/Apap 5/325 Tablet PO (19:50)
--- NOTE | 2020-07-04 20:06 | ED.DCSUM_ITS ---
- ER Visit Summary Date of Service: 07/04/20 Chief Complaint: Back pain History of Present Illness: The patient is a [address] Sood. He reports that 4 days ago at work he ran into a pole and crushed himself between a forklift and a pole. He states that he has a sharp pain left mid back that is 10 of 10 severity. Is worsened by movement or laying on it. Is relieved with naproxen and his 's Vicodin. Denies any ration to his legs. No numbness or weakness in his legs. No groin numbness. Patient reports that he has a contusion to his abdomen that is no longer painful, but this was painful initially. He does not wonder this is Workmen's Compensation. Physical Examination: Vitals: Stable. Afebrile. General: A&O x 3. NAD. Cardiovascular exam: Regular rate and rhythm, no murmur, rub or gallop. Respiratory exam: Clear to auscultation bilaterally. No wheezes or stridor. Abdominal exam: Soft, mild tenderness over a contusion in the left lower quadrant, nondistended, normal bowel sounds. No peritoneal signs. Back: Moderate tenderness palpation to the lower ribs on the left. He does have pain with anterior posterior compression of his chest. Extremity: No clubbing, cyanosis, or edema. Test Results: Clinical Impression(s) from Imaging Studies Ribs w/Chest X-Ray 07/04/20 19:37 IMPRESSION: RIBS: Normal x-ray examination of the ribs. CHEST: Normal x-ray examination of the chest. Electronically Signed: Jameson Pool MD at 20:01 EDT Tel , Service support , Emergency Department Course and Treatment: An [facility] report was obtained which shows the patient's had 6 prescriptions for opiates in the past year. He has objective evidence of injury with the contusion. Treatment Plan: Patient will be given a prescription for 10 [place]. He is instructed on symptomatic management. Use Tylenol for pain. Ice the area. Instructed to follow-up with his primary care physician as previously scheduled in 3 days. Return to the emergency department for any worsening symptoms. Disposition: To home in improved and stable condition. Impression: 1. Crush injury to chest. This note was generated with [employer] dictation software. It may contain incorrect words, spelling, and punctuation that were not noted in review of the chart prior to signing ED Disposition - Plan for ED Patient: Instructions: ED Contusion Vs Minor Fx Rib Prescriptions: Hydrocodone Bitart/Apap 5-325 [[place] 5MG-325MG] 1 tablet PO Q4H PRN PRN 2 Days #10 tablet PRN Reason: Pain Referrals: Jameson Sood MD [Primary Care Provider] - Keep Trung appointment
== END 2020-07-04 20:26 | disposition home or self-care (01) ==
LOC: ED 19:48
PROVIDERS: Emergency Provider Emergency Medicine; PCP Family Medicine
DX: S28.0XXA Crushed chest, initial encounter (principal); W31.89XA Contact with other specified machinery, initial encounter; Y93.89 Activity, other specified; Y92.89 Other specified places as the place of occurrence of the external cause; Y99.0 Civilian activity done for income or pay; F41.9 Anxiety disorder, unspecified; F32.9 Major depressive disorder, single episode, unspecified
CPT/HCPCS: 71101; 99283

== ENCOUNTER 2020-07-26 20:03 | Emergency (ER) | payer MEDICAID, SELFPAY ==
[2020-07-26 20:04] VITALS: BP 160/110; PULSE 85; RESP 18; TEMP 36.4; O2SAT 95; BMI 58.5
--- NOTE | 2020-07-26 20:42 | ED.VISSUMM ---
- ER Visit Summary Date of Service: 07/26/20 Chief Complaint: [Ingestion of an insect] History of Present Illness: The patient is a 45 M [presents to the emergency department concerned about swallowing ABD. Patient states that he was cutting the lawn and took a sip of his Gatorade and felt that he swallowed a bee that was in the straw. Patient has some discomfort in his throat. He has been able to drink water and he was able to eat some pepperoni slices without difficulty. Patient was not sure what to do. He denies difficulty breathing. He denies rashes. He does not have severe reactions to bee stings. Patient otherwise has no medical history.] Physical Examination: [HEENT-PERRLA, EOMI. Cranial nerves II through XII grossly intact. TMs clear. Mucous membranes moist. No adenopathy. Cardiovascular-regular rate and rhythm without murmur or ectopy Lungs-clear to auscultation, chest wall stable without crepitus or subcu emphysema Abdomen-normoactive bowel sounds, soft, nontender, no rebound or rigidity, no peritoneal signs. Extremities-intact ?4, normal range of motion, normal pulses, atraumatic] Test Results: [None indicated] Emergency Department Course and Treatment: [Patient was able to drink water in the department without difficulty. He received 1 dose of Benadryl 25 mg p.o.] Treatment Plan: [Patient advised to eat and drink normally. He is to return if difficulty swallowing or lip or tongue swelling or difficulty breathing. He did not want to be observed in the department and states that he will return if he gets worse.] Disposition: [Discharged home in stable condition] Impression: [Accidental ingestion of insect] This note was generated with [employer] dictation software. It may contain incorrect words, spelling, and punctuation that were not noted in review of the chart prior to signing ED Disposition - Plan for ED Patient: Referrals: Jameson Sood MD [Primary Care Provider] -
--- NOTE | 2020-07-26 20:45 | ED.DEP ---
ED Disposition - Plan for ED Patient: Instructions: ED Accidental Ingestion Nontoxic Adult Referrals: Jameson Sood MD [Primary Care Provider] - 3-5 Days
[2020-07-26] MEDS: DiphenhydrAMINE 25 MG Capsule PO (20:57)
[2020-07-26 20:59] VITALS: BP 145/92; PULSE 70; RESP 18; O2SAT 98
== END 2020-07-26 21:00 | disposition home or self-care (01) ==
LOC: ED 20:52
PROVIDERS: Emergency Provider Emergency Medicine; PCP Family Medicine
DX: S10.16XA Insect bite (nonvenomous) of throat, initial encounter (principal); W57.XXXA Bitten or stung by nonvenomous insect and other nonvenomous arthropods, initial encounter; Y93.H9 Activity, other involving exterior property and land maintenance, building and construction; Y92.096 Garden or yard of other non-institutional residence as the place of occurrence of the external cause
CPT/HCPCS: 99283

== ENCOUNTER 2020-08-23 04:33 | Emergency (ER) | payer MEDICAID, SELFPAY ==
[2020-08-23 04:34] VITALS: BP 157/97; PULSE 86; RESP 18; TEMP 36.8; O2SAT 97; BMI 61.5
--- NOTE | 2020-08-23 04:41 | RAD_ITS ---
STUDY: X-RAY - LUMBAR SPINE REASON FOR EXAM: Male, 45 years old. TWISTED LOW BACK WHEN PICKING SOMETHING UP YESTERDAY -- HAS HX OF CHRONIC BACK PAIN WITH PAIN RADIATING INTO BOTH LEGS, BUT MORE PAIN THAN USUAL NOW TECHNIQUE: 3 view(s) of the lumbar spine were obtained. COMPARISON: 02/03/2020. FINDINGS: Normal lumbar lordosis. There is no substantial scoliosis. There is a normal alignment of the vertebrae. There is diffuse facet arthrosis. Normal vertebral bodies and endplates. Normal disc space heights. The soft tissue structures are unremarkable. RAD/Lumbar Spine 2 or 3 Views IMPRESSION: Degenerative changes of the spine. No interval change or acute fracture. Electronically Signed: Nuno Tavarez, at 5:18 EDT Tel , Service support ,
--- NOTE | 2020-08-23 04:42 | ED.VIS.GEN ---
History of Present Illness Chief Complaint: Back Informant: Patient Onset: Yesterday Current Severity: Moderate Maximum Severity: Severe Narrative: Patient present secondary to low back pain. He was at work yesterday. 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 He picked up a roll twisted to his right and went to place the rolled down when he felt a pulling sensation in his lower back. Pain does not radiate to his legs. No problems with bowel or bladder control. There was no direct trauma to his back. He is taking his naproxen as scheduled without improvement. - Past Medical History (1) Anxiety Status: Chronic (2) Arthritis Status: Chronic (3) Depression Status: Chronic (4) History of kidney cancer Status: Chronic (5) Hx of partial nephrectomy Status: Chronic Comment: Right 2017 (6) Hx of umbilical hernia repair Status: Chronic Comment: 2011 Past Medical History - Allergies and Home Meds Allergies/Adverse Reactions: Allergies hydrocortisone Allergy (Verified 07/26/20 20:06) Rash tramadol Adverse Reaction (Verified 07/26/20 20:06) Nausea Primary Care Physician: Jameson Sood MD [Primary Care Provider] - Prior records reviewed: Yes Surgical History: noncontributory, - - Ventral hernia Lives: Spouse/ Significant Other Smoking Status: Never smoker Review of Systems General: Denies: Chills, Fever Eyes: Denies: Visual changes - bilaterally ENT: Denies: Bilateral ear pain Cardiovascular: Denies: Chest pain Respiratory: Denies: Dyspnea, Cough Gastrointestinal: Denies: Abdominal pain, Vomiting, Diarrhea Musculoskeletal: Reports: Back pain. Denies: Extremity Pain Skin: Denies: Rash Neurological: Denies: Headache Hematologic: Denies: Easy bruising, Easy bleeding Allergy: Denies: Uticaria Physical Exam Vital Signs/Narrative: Vital Signs Temp Pulse Resp BP Pulse Ox 08/23/20 04:34 98.3 F 86 18 157/97 H 97 Inital Vital Signs reviewed: Yes General: Well nourished, Well developed Head: Normocephalic ENT: Moist mucous membranes Neck: Supple Cardiovascular: Regular rate, Regular rhythm Respiratory: No distress, CTA bilaterally Abdomen: Soft, Nontender, Normal bowel sounds Back: - - Midline lumbar tenderness to palpation. No erythema or abrasions. Extremities: Nontender Skin: Normal color Neurological: Alert, Oriented x3, Normal Strength, Normal Sensation Psychological: Normal affect Diagnostic/Tx/Re-eval Impressions Lumbar Spine X-Ray 08/23/20 04:41 IMPRESSION: Degenerative changes of the spine. No interval change or acute fracture. Electronically Signed: Nuno Tavarez, at 5:18 EDT Tel , Service support , 08/23/20 04:41 Xray Lumbar [Lumbar Spine 2 or 3 Views] [RAD] Stat - Medical Decision Making Patient had taken naproxen prior to arrival. He was given a dose of [place] and Flexeril here. Because he did have midline pain lumbar x-rays were obtained. No evidence of prolonged fracture. Patient will be given prescription for [place] and Flexeril. He is given today off work. I did do an oars report. Patient has only had one prescription for controlled substance in the last 4 months. ED Disposition - Plan for ED Patient: Disposition: Home or Assisted Living Diagnosis: Back pain Instructions: ED Neck Back Pain General Prescriptions: cycloBENZAPRine HCl [Flexeril] 10 mg PO TID PRN #20 tab PRN Reason: Muscle Spasm Transmission Status: Pending to [facility] Hydrocodone Bitart/Apap 5-325 [[place] 5MG-325MG] 1 tablet PO Q6H PRN PRN 3 Days #10 tablet PRN Reason: Pain Transmission Status: Sent to [facility] Referrals: Jameson Sood MD [Primary Care Provider] - 1 Week if not improving
[2020-08-23] MEDS: cycloBENZAPRine HCl 10 MG Tablet PO (04:47)
[2020-08-23] MEDS: HYDROcodone Bitartrate/Apap 5/325 Tablet PO (04:47)
[2020-08-23 05:27] VITALS: PULSE 88; RESP 18
== END 2020-08-23 05:29 | disposition home or self-care (01) ==
PROVIDERS: Emergency Provider Emergency Medicine; PCP Family Medicine
DX: M54.5 Low back pain (principal); Z85.528 Personal history of other malignant neoplasm of kidney; Z90.5 Acquired absence of kidney; M19.90 Unspecified osteoarthritis, unspecified site; F41.9 Anxiety disorder, unspecified; Z79.899 Other long term (current) drug therapy; F32.9 Major depressive disorder, single episode, unspecified
CPT/HCPCS: 72100; 99283

== ENCOUNTER 2020-10-08 11:37 | Emergency (ER) | payer MEDICAID, SELFPAY ==
[2020-10-08 11:38] VITALS: BP 155/95; PULSE 69; RESP 18; TEMP 36.1; O2SAT 99; BMI 57.7
--- NOTE | 2020-10-08 12:05 | ED.DCSUM_ITS ---
History of Present Illness Chief Complaint: Back Informant: Patient Onset: Days Context: Gradual Onset Current Severity: Moderate Maximum Severity: Severe Narrative: Patient presents secondary to low back pain radiating to his legs. Patient has a history of chronic back pain. He had a minor fall on Friday but states he felt pretty well on Friday. he helped carry a furnace into his basement. He states since that time he had increased low back pain with pain radiating down mostly his right leg. He called his PCP to get an appointment but cannot be seen until Friday. He has been taking naproxen 500 mg 2 tabs twice daily. We did discuss correct dosing of this medication. - Past Medical History (1) Anxiety Status: Chronic (2) Arthritis Status: Chronic (3) Depression Status: Chronic (4) History of kidney cancer Status: Chronic (5) Hx of partial nephrectomy Status: Chronic Comment: Right 2017 Past Medical History - Allergies and Home Meds Allergies/Adverse Reactions: Allergies hydrocortisone Allergy (Verified 10/08/20 11:38) Rash tramadol Adverse Reaction (Verified 10/08/20 11:38) Nausea Primary Care Physician: Jameson Sood MD [Primary Care Provider] - Prior records reviewed: Yes Surgical History: noncontributory, - - Ventral hernia Lives: Alone Smoking Status: Never smoker Review of Systems General: Denies: Chills, Fever Eyes: Denies: Visual changes - bilaterally ENT: Denies: Bilateral ear pain Cardiovascular: Denies: Chest pain Respiratory: Denies: Dyspnea, Cough Gastrointestinal: Denies: Abdominal pain Musculoskeletal: Reports: Back pain, Extremity Pain Neurological: Denies: Weakness, Parasthesia Hematologic: Denies: Easy bruising, Easy bleeding Allergy: Denies: Uticaria Physical Exam Vital Signs/Narrative: Vital Signs Temp Pulse Resp BP Pulse Ox 10/08/20 11:38 96.9 F L 69 18 155/95 H 99 Inital Vital Signs reviewed: Yes General: Well nourished, Well developed Head: Normocephalic ENT: Moist mucous membranes Cardiovascular: Regular rate, Regular rhythm Respiratory: No distress, CTA bilaterally Abdomen: Soft Back: - - Tenderness throughout the lumbar paraspinal muscles bilaterally. No point tenderness midline. Extremities: Nontender, - - Patient able to stand on tiptoes and heels at side of bed. Skin: Normal color Neurological: Alert, Oriented x3, Normal Strength, Normal Sensation Psychological: Normal affect Diagnostic/Tx/Re-eval - Medical Decision Making We discussed correct dosing of naproxen as he has been taking too much of this. He will be given a new prescription and will take 1 tab twice a day. He will also be given Flexeril and a few tabs of [place]. I did do an oars report his las t prescription for [place] was in early August. ED Disposition - Plan for ED Patient: Disposition: Home or Assisted Living Diagnosis: Back strain Instructions: ED Back Pain Acute or Chronic Prescriptions: cycloBENZAPRine HCl [Flexeril] 10 mg PO TID PRN #20 tab PRN Reason: Muscle Spasm Transmission Status: Pending to [facility] Naproxen [Naprosyn] 500 mg PO BID PRN PRN #20 tab PRN Reason: Pain Score 4-10 Transmission Status: Pending to [facility] Hydrocodone Bitart/Apap 5-325 [[place] 5MG-325MG] 1 tablet PO Q6H PRN PRN 3 Days #10 tablet PRN Reason: Pain Transmission Status: Sent to [facility] #30 Referrals: Jameson Sood MD [Primary Care Provider] - Keep Trung appointment
[2020-10-08] MEDS: cycloBENZAPRine HCl 10 MG Tablet PO (12:20)
[2020-10-08] MEDS: HYDROcodone Bitartrate/Apap 5/325 Tablet PO (12:21)
[2020-10-08 12:26] VITALS: BP 141/74; PULSE 71; RESP 22; O2SAT 98
--- NOTE | 2020-10-08 12:28 | ED.RN ---
THIS NURSE REVIEWED D/C INSTRUCTIONS WITH PT. PT VERBALIZED UNDERSTANDING OF INSTRUCTIONS. PT DENIES FURTHER NEEDS OR QUESTIONS AT THIS TIME. PT AMBULATES FROM ROOM ON OWN WITHOUT ASSISTANCE FROM STAFF
== END 2020-10-08 12:31 | disposition home or self-care (01) ==
LOC: ED 12:26
PROVIDERS: Emergency Provider Emergency Medicine; PCP Family Medicine
DX: S39.012A Strain of muscle, fascia and tendon of lower back, initial encounter (principal); X50.0XXA Overexertion from strenuous movement or load, initial encounter; F41.9 Anxiety disorder, unspecified; M19.90 Unspecified osteoarthritis, unspecified site; F32.9 Major depressive disorder, single episode, unspecified; Z85.528 Personal history of other malignant neoplasm of kidney; Z88.5 Allergy status to narcotic agent; Z90.5 Acquired absence of kidney; Z88.8 Allergy status to other drugs, medicaments and biological substances
CPT/HCPCS: 99283

== ENCOUNTER 2020-10-18 14:58 | Emergency (ER) | payer MEDICAID, SELFPAY ==
[2020-10-18 14:59] VITALS: BP 159/92; PULSE 85; RESP 17; TEMP 36.3; O2SAT 98; BMI 56.9
--- NOTE | 2020-10-18 15:13 | ED.DCSUM_ITS ---
- ER Visit Summary Date of Service: 10/18/20 Chief Complaint: Back pain History of Present Illness: The patient is a [address] Sood. He reports that 2 months ago he hurt his back at work. It seemed to improve. However, he began experiencing pain again 1 week ago. He denies any trauma. No fall, MVA, or change in activity. He describes it as sharp, burning pain is 10 on 10 at worst and a 10 currently. Is worsened by movement or walking. He is taken naproxen, Flexeril, and [place] without relief. He does report he gets some relief from a hot shower. States it radiates into the back of both thighs. He denies any radiation past that. No numbness or weakness. No problems with his bowels or bladder. No groin numbness. Patient denies red flags Physical Examination: Vitals: Stable. Afebrile. General: A&O x 3. NAD. Cardiovascular exam: Regular rate and rhythm, no murmur, rub or gallop. Respiratory exam: Clear to auscultation bilaterally. No wheezes or stridor. Abdominal exam: Soft, nontender, nondistended, normal bowel sounds. No peritoneal signs. Back: Diffuse moderate tenderness to palpation over the lumbar spine and the paraspinous musculature in the lumbar region. No point tenderness. Negative straight leg bilaterally. 5/5 DF, PF, EHL bilaterally. Normal sensation to light touch throughout. Extremity: No clubbing, cyanosis, or edema. Emergency Department Course and Treatment: Patient was treated with Tylenol. I do not think giving him more opiate-based medications is warranted. Treatment Plan: I had a prolonged discussion with patient about actually how to treat this. Use a heating pad, TENS unit, and ultimately physical therapy is what he is going to need. The signs and symptoms of cauda equina syndrome were discussed and he is instructed to return for these. Disposition: To home in improved and stable condition. Impression: 1. Low back pain. This note was generated with [employer] dictation software. It may contain incorrect words, spelling, and punctuation that were not noted in review of the chart prior to signing ED Disposition - Plan for ED Patient: Instructions: ED Back Pain (Acute or Chronic) Referrals: Jameson Sood MD [Primary Care Provider] - 3-5 Days if not improving
[2020-10-18] MEDS: Acetaminophen 500 MG Tablet 1000 MG PO (15:34)
--- NOTE | 2020-10-20 14:42 | CM.ED ---
Social Work Patient ED Care Plan approved. Telephone call to patient. This foster care social worker updated patient on ED Care Plan being approved. Patient voiced understanding to this foster care social worker explanation for ED Care Plan for patient. Patient states to have seen Dr. Angeles in [place] for pain management and was told to not be able to prescribe patient pain medication and recommended for patient to use a tens unit. Patient reports that patient PCP, Dr. Sood also declines to prescribe patient with pain medication. Patient reports to have plan to start therapy for back pain the end of October as was prescribed by Dr. Sood's P.A. (Toby Alexander). Patient reports to have suppose to start therapy in 2019 but therapy was pushed to the end of Oct. due to COVID-19. Patient reports I don't know what to do. Patient states to work in [employer] and to have flare ups of patient back pain. Patient states to have spoken with orthopeadics about knee replacement due to having difficulty with patient knees as well but to have been told that patient is not a good candidate due to weight. Patient reports to be working towards weight loss. Patient aware of concern of medication seeking behavior. Patient states I have nothing to hide. Patient pleasant to speak with and agreeable to social work continuing to follow case. ED Care Plan mailed to patient along with resources. Cyndi Nash MSW, ELIS[place]ET
== END 2020-10-18 15:34 | disposition home or self-care (01) ==
LOC: ED 15:22
PROVIDERS: Emergency Provider Emergency Medicine; PCP Family Medicine
DX: M54.5 Low back pain (principal); I10 Essential (primary) hypertension
CPT/HCPCS: 99283

== ENCOUNTER 2020-12-05 13:33 | Emergency (ER) | payer MEDICAID, SELFPAY ==
[2020-12-05 13:34] VITALS: BP 114/75; PULSE 77; RESP 16; TEMP 36.3; O2SAT 97; BMI 57.7
--- NOTE | 2020-12-05 13:52 | RAD_ITS ---
STUDY: X-RAY - PELVIS AND RIGHT HIP REASON FOR EXAM: Increased right hip pain, right hip strain. TECHNIQUE: 2 views of the pelvis and hip. COMPARISON: Radiographs 10/01/2019. FINDINGS: Normal visualized soft tissue structures. Normal bilateral iliac wings, sacroiliac joints and visualized sacrum. Normal bilateral superior and inferior pubic rami. Normal pubic symphysis. Normal bilateral ischial tuberosities. Normal visualized right femoral head. Normal right acetabulum. Normal right hip joint. RAD/HIP, UNI W/ Pelvis 2-3 Views IMPRESSION: Normal x-ray examination of the pelvis and right hip. Electronically Signed: Dominick Lindsay MD at 14:53 EST Tel , Service support ,
--- NOTE | 2020-12-05 14:27 | ED.VISSUMM ---
- ER Visit Summary Date of Service: 12/05/20 Chief Complaint: Right hip and leg pain History of Present Illness: The patient is a 45 M who presents with right hip and thigh pain that began 4 days ago. Patient states he was climbing out of a bobcat when he felt sharp pain in his right hip and thigh. Patient states he did fall but the pain began before he fell. Patient describes the pain as sharp. Patient states the pain is worse with weightbearing. Patient does admit to some numbness and tingling in the right thigh. Patient denies any weakness. Patient denies any fevers or chills. Patient denies any other injuries. Physical Examination: Vital signs are stable. Patient is afebrile. Patient is no acute distress. Musculoskeletal exam reveals tenderness over the right hip and inguinal area. There is also some mild tenderness over the medial aspect of the right thigh. There is no obvious deformity noted. Range of motion was limited in all motions of the right hip secondary to pain. Strength is 5/5 bilateral in the lower extremities. There are no sensory deficits noted. Pedal pulses are equal bilaterally. Test Results: X-rays of the right hip and pelvis were obtained. There are 3 views. On my interpretation, there is no acute fracture or dislocation. Radiologist also interpreted the x-rays and agrees. Emergency Department Course and Treatment: Patient was given a dose of meloxicam here. Patient was advised of his findings. Patient was advised that this is most likely a muscular strain. Patient was instructed to use ice to the area. Patient was instructed to continue his Naprosyn as needed for pain. Patient was instructed to follow-up with his primary care physician in 5 to 7 days. Patient understood and was agreeable with the plan. All questions were answered. Disposition: Discharge home Impression: 1. Right hip strain This note was generated with [employer] dictation software. It may contain incorrect words, spelling, and punctuation that were not noted in review of the chart prior to signing ED Disposition - Plan for ED Patient: Disposition: Home or Assisted Living Diagnosis: Strain of right hip and thigh Instructions: ED Hip Strain Referrals: Jameson Sood MD [Primary Care Provider] - 5-7 Days
--- NOTE | 2020-12-05 14:39 | CM.ED ---
SOCIAL WORK Patient with active ED Care Plan ED Care Plan reviewed with Dr. Santos. This worker to remain available for needs. Geraldo Busby, PROGRAM ADMIN, DIRECTOR OF MAINTENANCE
[2020-12-05] MEDS: Meloxicam 15 MG Tablet PO (15:56)
== END 2020-12-05 15:58 | disposition home or self-care (01) ==
PROVIDERS: Emergency Provider Emergency Medicine; PCP Family Medicine
DX: S76.011A Strain of muscle, fascia and tendon of right hip, initial encounter (principal); W19.XXXA Unspecified fall, initial encounter; Y93.39 Activity, other involving climbing, rappelling and jumping off; Y99.8 Other external cause status
CPT/HCPCS: 73502; 99283

== ENCOUNTER 2021-01-10 14:42 | Emergency (ER) | payer MEDICAID, SELFPAY ==
[2021-01-10 14:42] VITALS: BP 182/104; PULSE 77; RESP 16; TEMP 35.9; O2SAT 97; BMI 63.5
--- NOTE | 2021-01-10 15:35 | EKG12_ITS ---
Test Reason : BACK PAIN Blood Pressure : / mmHG Vent. Rate : 066 BPM Atrial Rate : 066 BPM P-R Int : 148 ms QRS Dur : 094 ms QT Int : 418 ms P-R-T Axes : 034 016 021 degrees QTc Int : 438 ms Normal sinus rhythm Normal ECG Confirmed by CASSIE ART, GIOVANNI ([id number]), marketing editor MIRNA PACE ([id number]) on 01/15/2021 9:39:55 AM Referred By: HOLLY Confirmed By:PIOTR MATTHEWS MD
[2021-01-10] MEDS: Ondansetron 4 MG/2 ML Vial IV (16:01)
[2021-01-10] MEDS: Acetaminophen 500 MG Tablet 1000 MG PO (16:01)
[2021-01-10 16:04] LABS: Bacteria 0 SEEN /hpf (None Seen); Mucous, Urine 0 SEEN /hpf (<or=2+); Red Blood Cells-Urine 0 SEEN /hpf (0-5)
[2021-01-10 16:05] LABS: Absolute Lymphocyte Count 1.36 X10^3/uL (0.83-4.51); Absolute Neutrophil Count 6.4 X10^3/uL (2.0-7.7); Basophil# 0.02 X10^3/uL; Basophil% 0.2 % (0-1); Eosinophil# 0.07 X10^3/uL; Eosinophils% 0.8 % (0-5); Hematocrit 46.8 % (40-54); Lymphocyte # 1.36 X10^3/ul (4.0); Lymphocyte % 16.1 % (19-41); Mean Corp Hgb Conc 29.9 g/dL (32-36); Mean Corpuscular Hgb 27.2 pg (27.0-32.0); Mean Corpuscular Volume 90.9 fL (80-94); Mean Platelet Vol. 10.3 fl (6.2-12.0); Monocyte# 0.54 X10^3/uL; Monocyte% 6.4 % (0-10); NRBC Flagged by Analyzer 0 % (0-5); Platelet Count 210 K/mm3 (150-450); RBC Distribution Width CV 13.4 % (11.6-14.6); Red Blood Count 5.15 M/mm3 (4.6-6.2); White Blood Count 8.4 K/mm3 (4.4-11.0)
[2021-01-10 16:17] LABS: Color, Urine Yellow (Yellow); Glucose, Dipstick Normal (Normal); Ketone-Dipstick 5 mg/dl (Negative); Leukocyte Esterase-Dipstick 25 /ul (Negative); Nitrite-Dipstick Negative (Negative); Occult Blood-Urine Negative /ul (Negative); Protein-Dipstick Negative (Negative); Specific Gravity, Urine 1.015 (1.002-1.030); Urine Bilirubin Dipstick Negative (Negative); Urine Clarity Cloudy (Clear); Urine Urobilinogen Normal (Normal)
[2021-01-10 16:38] LABS: BNP,B-Type NATRIURETIC PEPTIDE 24.1 pg/mL (0-100)
[2021-01-10 16:53] LABS: ALB/GLOB Ratio 1.2 RATIO (0.9-2.4); AST(SGOT) 12 U/L (15-37); Alanine Aminotransfer ALT/SGPT 26 U/L (16-61); Albumin, Serum 4.1 g/dL (3.2-5.0); Alkaline Phosphatase 112 U/L (45-117); Anion Gap 4 (5-15); BUN 17 mg/dL (7-18); BUN/Creat Ratio 17.6 RATIO (10-20); Calcium,Total 8.9 mg/dL (8.5-10.1); Chloride 108 mmol/L (98-107); Creatinine, Serum 0.96 mg/dL (0.70-1.30); EST Glomerular Filtration Rate 89 mL/min (>60); Est Glom Filt Rate - Afr Amer 108 mL/min (>60); Estimated Creatinine Clearance 94.01 ml/min; Globulin 3.4 g/dL (2.2-4.2); Glucose 84 mg/dL (74-106); Potassium 4.4 mmol/L (3.5-5.1); Protein, Total 7.5 g/dL (6.4-8.2); Sodium Level 141 mmol/L (136-145)
[2021-01-10 17:00] LABS: Amorphous Sediment 2+
[2021-01-10 17:02] LABS: Squamous Epithelial Cells - UA 0-5 SEEN /hpf (0-5)
[2021-01-10 17:03] LABS: White Blood Cells 0-5 SEEN /hpf (0-5)
--- NOTE | 2021-01-10 17:10 | ED.VISSUMM ---
- ER Visit Summary Date of Service: 01/10/21 Chief Complaint: Back pain History of Present Illness: The patient is a [address] Sood. Patient reports he has low back pain that began 2 days ago. Is a sharp, aching pain is 10 of 10 with movement 9 out of 10 at rest. Is worsened by movement and lying down. Is taken naproxen and Flexeril without relief. States that radiates down the back of both of his legs to the level of his feet. He denies any numbness or weakness. No groin numbness. He denies any urinary retention or fecal incontinence. Does report he has had frequency with small volumes without urinating. He denies any fall, MVA, or change in activity. He also complains of nausea. He is not vomited. Physical Examination: Vitals: Stable. Afebrile. General: A&O x 3. NAD. Cardiovascular exam: Regular rate and rhythm, no murmur, rub or gallop. Respiratory exam: Clear to auscultation bilaterally. No wheezes or stridor. Abdominal exam: Soft, nontender, nondistended, normal bowel sounds. No peritoneal signs. Back: Diffuse moderate tenderness to palpation over the lumbar spine and the paraspinous musculature in the lumbar region. No point tenderness. Negative straight leg bilaterally. 5/5 DF, PF, EHL bilaterally. Normal sensation to light touch throughout. Extremity: No clubbing, cyanosis. 2+ pitting edema lower extremities bilaterally. Test Results: EKG is sinus at 66 with no acute changes. Troponin is negative. BNP is 24. LFTs show an AST of 12. Chem-7 shows a chloride of 108. CBC shows 7 neutrophils 76 lymphocytes 16. UA is negative for infection. Emergency Department Course and Treatment: Patient had an IV placed. He was given Zofran IV. He was given Tylenol p.o. He does have a care plan here in the emergency department. Treatment Plan: Patient will be discharged instructions to add Tylenol to his regimen. Use a heating pad and TENS unit. Follow-up his primary care physician in 3 to 5 days for another exam. Return to the emergency department for any worsening symptoms. Disposition: To home in improved and stable condition. Impression: 1. Acute on chronic back pain. 2. Peripheral edema. 3. ED care plan. This note was generated with [employer] dictation software. It may contain incorrect words, spelling, and punctuation that were not noted in review of the chart prior to signing ED Disposition - Plan for ED Patient: Instructions: ED Back Pain (Acute or Chronic) Referrals: Jameson Sood MD [Primary Care Provider] - 3-5 Days Additional Instructions: Use a TENS unit and heating pad to help with your pain. Use Tylenol in addition to the naproxen and flexeril you are already taking.
[2021-01-10 17:25] VITALS: BP 160/90; PULSE 70; RESP 16
== END 2021-01-10 17:27 | disposition home or self-care (01) ==
LOC: ED 15:43
PROVIDERS: Emergency Provider Emergency Medicine; PCP Family Medicine
DX: M54.9 Dorsalgia, unspecified (principal); G89.29 Other chronic pain; R60.0 Localized edema; R11.0 Nausea
CPT/HCPCS: 80053; 81001; 83880; 84484; 85025; 93005; 96374; 99285; A4216; J2405

== ENCOUNTER 2021-02-13 17:47 | Emergency (ER) | payer MEDICAID, SELFPAY ==
[2021-02-13 17:48] VITALS: BP 150/97; PULSE 95; RESP 20; TEMP 36.6; O2SAT 96; BMI 59.5
--- NOTE | 2021-02-13 18:01 | ED.DCSUM_ITS ---
History of Present Illness Chief Complaint: Dental Informant: Patient Onset: Days Context: Gradual Onset Current Severity: Moderate Maximum Severity: Severe Narrative: Patient presents secondary to severe dental pain. He states he was eating an apple 2 days ago when a piece of his tooth broke off. He has left multiple messages with his dentist and tried to go to a different dentist in [place] today without success. He has been taking excessive amounts of ibuprofen to try to control his pain along with Tylenol. - Past Medical History (1) Anxiety Status: Chronic (2) Arthritis Status: Chronic (3) History of kidney cancer Status: Chronic (4) Hx of partial nephrectomy Status: Chronic Comment: Right 2017 (5) Hx of umbilical hernia repair Status: Chronic Comment: 2011 Past Medical History - Allergies and Home Meds Allergies/Adverse Reactions: Allergies hydrocortisone Allergy (Verified 02/13/21 17:50) Rash tramadol Adverse Reaction (Verified 02/13/21 17:50) Nausea Primary Care Physician: Jameson Sood MD [Primary Care Provider] - Prior records reviewed: Yes Surgical History: noncontributory, - - Ventral hernia Smoking Status: Never smoker Review of Systems General: Denies: Chills, Fever Eyes: Denies: Visual changes - bilaterally ENT: Reports: - - Left upper dental pain. Denies: Bilateral ear pain Cardiovascular: Denies: Chest pain Respiratory: Denies: Dyspnea, Cough Gastrointestinal: Denies: Abdominal pain, Nausea, Vomiting, Diarrhea Genitourinary: Denies: Dysuria Musculoskeletal: Denies: Swelling, Extremity Pain Skin: Denies: Rash Neurological: Denies: Headache Hematologic: Denies: Easy bruising, Easy bleeding Allergy: Denies: Uticaria Physical Exam Vital Signs/Narrative: Vital Signs Temp Pulse Resp BP Pulse Ox 02/13/21 17:48 97.9 F 95 20 H 150/97 H 96 Inital Vital Signs reviewed: Yes General: Well nourished, Well developed Head: Normocephalic Eyes: Perrl, EOMI ENT: Moist mucous membranes, - - Fracture on the posterior portion of the left maxillary lateral incisor. Slight discoloration to the distal end of the tooth. Tooth is stable. No significant surrounding gum edema. Neck: Supple Cardiovascular: Regular rate, Regular rhythm Respiratory: No distress, CTA bilaterally Abdomen: Soft, Nontender, Normal bowel sounds Extremities: Nontender Skin: Normal color Neurological: Alert, Oriented x3, Normal Strength, Normal Sensation Psychological: Normal affect Diagnostic/Tx/Re-eval - Medical Decision Making Patient will be given a dental referral list. I did do an oars report and he has only had 3 prescriptions for narcotics since September. Patient be given a prescription for 6 tabs of Alloy along with a prescription for Pen-Vee K. We did discuss using appropriate dosing of ibuprofen as he does have partial nephrectomy history. ED Disposition - Plan for ED Patient: Disposition: Home or Assisted Living Diagnosis: Pain, dental Instructions: ED Dental Pain Prescriptions: Hydrocodone Bitart/Apap 5-325 [Alloy 5MG-325MG] 1 tablet PO Q6H PRN PRN 3 Days #6 tablet PRN Reason: Pain Transmission Status: Sent to [facility] Penicillin V Potassium 500 mg PO 4X/DAY #40 tablet Transmission Status: Pending to [facility] Additional Instructions: Dental list provided.
[2021-02-13] MEDS: Penicillin Vk 250 MG Tablet 500 MG PO (18:11)
[2021-02-13] MEDS: HYDROcodone Bitartrate/Apap 5/325 Tablet PO (18:11)
== END 2021-02-13 18:16 | disposition home or self-care (01) ==
LOC: ED 18:12
PROVIDERS: Emergency Provider Emergency Medicine; PCP Family Medicine
DX: K08.89 Other specified disorders of teeth and supporting structures (principal); Z90.5 Acquired absence of kidney; Z85.528 Personal history of other malignant neoplasm of kidney; F41.9 Anxiety disorder, unspecified; M19.90 Unspecified osteoarthritis, unspecified site; Z88.5 Allergy status to narcotic agent; Z88.8 Allergy status to other drugs, medicaments and biological substances
CPT/HCPCS: 99283

== ENCOUNTER 2021-03-03 07:36 | Emergency (ER) | payer MEDICAID, SELFPAY ==
[2021-03-03 07:37] VITALS: BP 140/96; PULSE 79; RESP 17; TEMP 36.4; O2SAT 97; BMI 57.9
--- NOTE | 2021-03-03 07:50 | RAD_ITS ---
STUDY: X-RAY - RIGHT KNEE REASON FOR EXAM: Male, 45 years old. fell a few days ago, pain, unable to bear weight TECHNIQUE: 4 view(s) of the knee. COMPARISON: None. FINDINGS: Normal visualized distal femur. Normal visualized proximal tibia and fibula. Normal proximal tibiofibular articulation. There is moderate degenerative arthrosis of the medial femorotibial compartment with moderate joint space narrowing. There is moderate degenerative arthrosis of the lateral femorotibial compartment with moderate joint space narrowing. There is mild degenerative arthrosis of the patellofemoral articulation. There is a soft tissue prominence in the suprapatellar region suggesting a small volume joint effusion. The soft tissue structures are unremarkable. RAD/Knee 4 or More Views IMPRESSION: 1. No acute fracture or dislocation. 2. Moderate arthrosis with a small joint effusion. Electronically Signed: Jhon Pulido MD at 8:32 EDT Tel , Service support ,
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
== END 2021-03-03 08:30 | disposition home or self-care (01) ==
LOC: ED 08:10
PROVIDERS: Emergency Provider Emergency Medicine; PCP Family Medicine
DX: M25.561 Pain in right knee (principal)
CPT/HCPCS: 73564; 99282

== ENCOUNTER 2021-03-10 13:12 | Emergency (ER) | payer MEDICAID, SELFPAY ==
[2021-03-10 13:13] VITALS: BP 166/100; PULSE 88; RESP 18; TEMP 36.1; O2SAT 99; BMI 57.6
--- NOTE | 2021-03-10 13:26 | CM.ED ---
SOCIAL WORK Patient with active ED Care Plan. Reviewed with nurse, Beltran and Dr. Michaels. This worker to remain available for needs. Geraldo Busby, [employer]CH[employer]IC, [employer]ELD [employer]
--- NOTE | 2021-03-10 13:29 | ED.VIS.GEN ---
History of Present Illness Chief Complaint: Lower Extremity Injury Informant: Patient Onset: Yesterday Context: Sudden Onset Timing: Continuous Quality: Pain Location: Posterior right calf Current Severity: Mild Maximum Severity: Moderate Worsened by: Palpation and walking Relieved by: Rest Associated Symptoms: None Narrative: Patient is a 45-year-old male with no history of peptic ulcer disease, renal disease or diabetes. He presents with atraumatic posterior right calf pain. He has no history of VTE or risk factors. He denies paresthesia, anesthesia or motor weakness. He denies chest pain or shortness of breath. He is morbidly obese with a BMI of 57.7. Prior similar symptoms: No Recent Illness/Hospitalization: No - Past Medical History (1) Anxiety Status: Chronic (2) Depression Status: Chronic (3) History of kidney cancer Status: Chronic (4) Hx of partial nephrectomy Status: Chronic Comment: Right 2018 Past Medical History - Allergies and Home Meds Allergies/Adverse Reactions: Allergies hydrocortisone Allergy (Verified 03/10/21 13:15) Rash tramadol Adverse Reaction (Verified 03/10/21 13:15) Nausea Primary Care Physician: Jameson Sood MD [Primary Care Provider] - Prior records reviewed: Yes Surgical History: noncontributory, - - Ventral hernia Lives: Alone Smoking Status: Never smoker Alcohol: None Drugs: None Review of Systems General: Denies: Chills, Fever, Malaise, Subjective Eyes: Denies: Visual changes - bilaterally, Blurred Vision - bilaterally ENT: Denies: Rhinorrhea, Sore throat Cardiovascular: Denies: Chest pain, Palpitations, Heart racing Respiratory: Denies: Dyspnea, Cough, Dyspnea on exertion Gastrointestinal: Denies: Abdominal pain, Nausea, Vomiting Musculoskeletal: Reports: Swelling, Extremity Pain. Denies: Myalgias, Arthralgias, Neck pain, Back pain Skin: Denies: Rash, Wounds Neurological: Denies: Headache, Weakness, Parasthesia Psych: Reports: Depression, Anxiety Endocrine: Denies: Polyuria Hematologic: Denies: Easy bruising, Easy bleeding Physical Exam Vital Signs/Narrative: Vital Signs Temp Pulse Resp BP Pulse Ox 03/10/21 13:13 97 F L 88 18 166/100 H 99 Inital Vital Signs reviewed: Yes General: Well nourished, Well developed, No Acute Distress Head: Normocephalic, Atraumatic Eyes: Perrl, EOMI. Negative for: Pale conjunctiva, Scleral icterus ENT: Moist mucous membranes, No rhinorrhea, TM's clear Neck: Supple, Nontender, No lymphadenopathy, No JVD Cardiovascular: Regular rate, Regular rhythm, No murmurs, Normal S1, Normal S2 Respiratory: No distress, CTA bilaterally Abdomen: Soft, Nontender, Nondistended, Normal bowel sounds, - - Are noted and due to partial right nephrectomy Back: Nontender, Normal Inspection Extremities: Nontender, No edema, Calf Tenderness, - - Along the distribution of the deep venous system. There may be a palpable cord. Skin: Normal color, No rash Neurological: Alert, Oriented x3, Cranial nerves II-XII grossly intact, Normal Strength Psychological: Normal affect, Normal Mood Diagnostic/Tx/Re-eval - Medical Decision Making With history of partial nephrectomy due to renal carcinoma 3 years ago and atraumatic calf pain concern patient has DVT. Unable to obtain venous duplex study at this time. If D-dimer is elevated will place on Eliquis and order outpatient venous duplex study to be performed tomorrow. If D-dimer negative will order venous duplex Doppler for tomorrow without initiating anticoagulation therapy. Since the D-dimer is normal we will not place on Eliquis. Will order outpatient venous duplex study to be performed tomorrow. ED Disposition - Plan for ED Patient: Disposition: Home or Assisted Living Diagnosis: Right calf pain, History of kidney cancer Instructions: ED Peripheral Edema, Unilateral Referrals: Jameson Sood MD [Primary Care Provider] - 1 Week if not improving Additional Instructions: [facility] call you tomorrow with appointment time for venous duplex study to evaluate for DVT in your right calf. If you develop abrupt onset of chest pain and or shortness of breath return to the emergency department.
[2021-03-10 13:47] LABS: Anion Gap 3 (5-15); BUN 18 mg/dL (7-18); Calcium,Total 8.9 mg/dL (8.5-10.1); Chloride 107 mmol/L (98-107); D-Dimer Quantitative (DVT/PE) 0.45 FEU/ug/m (0.27-0.49); EST Glomerular Filtration Rate 97 mL/min (>60); Est Glom Filt Rate - Afr Amer 117 mL/min (>60); Estimated Creatinine Clearance 100.28 ml/min; Glucose 87 mg/dL (74-106); Potassium 4.1 mmol/L (3.5-5.1); Sodium Level 139 mmol/L (136-145)
[2021-03-10 14:10] VITALS: BP 138/77; PULSE 79; RESP 14; O2SAT 98
== END 2021-03-10 14:11 | disposition home or self-care (01) ==
PROVIDERS: Emergency Provider Emergency Medicine; PCP Family Medicine
DX: M79.661 Pain in right lower leg (principal); Z85.528 Personal history of other malignant neoplasm of kidney; E66.01 Morbid (severe) obesity due to excess calories; Z88.5 Allergy status to narcotic agent; Z88.8 Allergy status to other drugs, medicaments and biological substances; Z90.5 Acquired absence of kidney; F32.9 Major depressive disorder, single episode, unspecified; F41.9 Anxiety disorder, unspecified; Z68.43 Body mass index [BMI] 50.0-59.9, adult
CPT/HCPCS: 36415; 80048; 85379; 99282

== ENCOUNTER → 2021-03-11 10:53 | Outpatient (CLI) | payer MEDICAID, SELFPAY ==
[2021-03-10 13:13] VITALS: BMI 57.6
--- NOTE | 2021-03-11 11:06 | VDLE_ITS ---
Reason For Study: Pain RIGHT GSV is normal. FV is compressible, spontaneous, phasic, competent and demonstrates normal augmentation. POP V is compressible, spontaneous, phasic, competent and demonstrates normal augmentation. T/P Trunk is compressible. PTV is compressible. RT PerV is compressible. CFV is patent with normal venous flow. Visualized with color only, pt unable to tolerate compression. Nonvascualrized structure noted in the right popliteal fossa, measuring approximently 1.70 x 2.73 x 3.68 cm. Procedure This is a venous duplex using B-mode, color flow and spectral Doppler. Exam performed in department. A preliminary report was called and/or faxed to PCP: [facility]. Exam done as next ED scan. VL/Venous Duplex US, Unilateral Interpretation Summary There is no evidence of right lower extremity deep vein thrombosis. Right great saphenous vein appears patent and compressible segmentally. Nonvascular right popliteal fossa 1.7 x 2.73 x 3.68 cm structure consistent with a Nash's cyst, clinical correlation be appropriate. Ordering Physician: Tyrell Michaels Referring Physician: Jameson Sood Performed By: Carmelita Moyer RVT
== END ==
PROVIDERS: PCP Family Medicine; Visit Provider Emergency Medicine
DX: M79.604 Pain in right leg (principal)
CPT/HCPCS: 93971

== ENCOUNTER 2021-04-20 17:16 | Emergency (ER) | payer MEDICAID, SELFPAY ==
[2021-04-20 17:16] VITALS: BP 156/106; PULSE 104; RESP 16; TEMP 36.3; O2SAT 95; BMI 58.1
--- NOTE | 2021-04-20 17:36 | EDS_ITS ---
HPI History of Present Illness Chief Complaint: Back Detail of Chief Complaint: Back injury that occurred yesterday Informant: patient Onset/Context/Timing Injury: lifting and twisting Timing: Continuous Current Severity: 8/10 Worsened by: improves with Movement, Bending and Lifting Associated Symptoms Associated Symptoms: Negative for Numbness, Tingling, Radiation to Right Leg, Abdominal Pain and Dysuria Narrative Narrative: Patient states that he was helping his father move a large toolbox and when he turned with that he felt a sudden onset of severe pain in his left low back. Patient tried Valium and Flexeril at home without much pain relief. 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 Patient denies any pain rating down the legs. He denies urinary symptoms. He denies change in bowel or bladder function. He denies weakness in extremities. Prior similar symptoms: Yes PFSH PFSH Medical History (Updated 04/20/21 @ 17:[address] Dominique Ricci DO) Abdominal pain Anxiety Arthritis Depression History of kidney cancer Home Medications bupropion HCl 300 mg PO DAILY 02/03/20 [History Last Taken 03/30/20 08:00 300 mg] hydroxyzine pamoate 25 mg PO DAILY 02/03/20 [History Last Taken 03/30/20 08:00 25 mg] naproxen 500 mg PO BID PRN PRN #20 tab 10/08/20 [Rx Last Taken Unknown] hydrocodone-acetaminophen 1 tab PO Q4H PRN PRN 2 Days #10 tablet 04/20/21 [Rx Last Taken Unknown] ondansetron 4 mg PO Q8H PRN PRN #10 tab 04/20/21 [Rx Last Taken Unknown] Allergy/AdvReac Type Severity Reaction Status Date / Time hydrocortisone Allergy Rash Verified 04/20/21 17:18 tramadol AdvReac Nausea Verified 04/20/21 17:18 Family History (Updated 03/30/20 @ 22:[address] Sergio Macias DO) Father Diabetes Hypertension CAD (coronary artery disease) Surgical History Hx of partial nephrectomy Hx of umbilical hernia repair S/P recurrent ventral herniorrhaphy Social History (Updated 01/14/19 @ 14:[address] Ryan Meza MD) Smoking Status: Never smoker second hand exposure: No alcohol intake: never substance use type: does not use caffeine: Yes what type of physical activity do you participate in: none frequency: does not exercise seatbelt use: always ROS ROS ED Constitutional Constitutional ED: Reports systems reviewed and no addt'l complaints, except as documented; Denies body ache(s), change in weight or chills Eyes Eyes: Denies acute decrease in peripheral vision, change in vision, double vision or loss of vision ENT ENT ED: Reports none; Denies ear pain, lip swelling, loss taste/smell, neck pain , otalgia or sore throat Cardiovascular Cardiovascular: Reports none; Denies abdominal pain, chest pain with activity, leg edema, lightheadedness, palpitations, rapid heart rate or syncope Respiratory/Chest Respiratory/Chest: Reports none; Denies change in mental status, dry cough, dyspnea, hemoptysis, shortness of breath at rest or shortness of breath with exertion Gastrointestinal Gastrointestinal: Reports none and nausea; Denies abdominal pain, change in stool character, diarrhea, hematemesis, hematochezia, melena, rectal bleeding or vomiting Genitourinary Genitourinary ED: Reports none; Denies abdominal discomfort, anuria, dysuria, genital pain or polyuria Musculoskeletal Musculoskeletal: Reports none and back pain; Denies arthralgias, difficulty walking, extremity pain, muscle weakness or myalgias Integumentary Reports none; Denies abscess or rash Neurologic Neurologic: Reports none; Denies abnormal gait, confusion, focal weakness, frequent falls, headache(s), loss of vision, numbness, paresthesias, radicular pain, vertigo or weakness Psychiatric Psychiatric: Reports systems reviewed and no addt'l complaints, except as documented and none; Denies behavioral changes, confusion, difficulty concentrating, hallucinations, suicidal ideation, tactile hallucinations or visual hallucinations Endocrine Endocrinology: Denies none, cold intolerance, excessive sweating, fatigue or heat intolerance Hematologic/Lymphatic Hematologic/Lymphatic: Reports none; Denies anemia, easy bleeding or easy bruising Allergic/Immunologic Allergic/Immunologic ED: Denies as per HPI, none, lip swelling, mouth swelling, throat swelling, tongue swelling or hives EXAM Physical Exam Const Vital Signs: 04/20/21 17:16 Temperature 97.3 F L Temperature Source Temporal Pulse Rate 104 H Respiratory Rate 16 Blood Pressure 156/106 H Blood Pressure Mean 122 Pulse Ox 95 Oxygen Delivery Method Room Air Positive well nourished and well developed General Appearance ED: well developed and NAD HEENT Reports TM's clear and moist mucous membranes normocephalic and atraumatic; Negative for trauma or tenderness Tympanic Membrane ED: Yes TM's clear Eyes PERRL and EOMs intact bilaterally General Eye ED: Negative for pale conjunctiva or scleral icterus Neck no lymphadenopathy, supple and no JVD General: Negative for tenderness Chest Wall inspection of chest normal and palpation of chest normal Chest: Negative for tenderness Resp normal respiratory effort and clear to auscultation bilaterally Effort and Inspection: Negative for respiratory distress or pain with movement Auscultation: Negative for rhonchi, wheezes or diminished lung sounds Cardio regular rate, regular rhythm, S1 normal heart sound, S2 normal heart sound and no murmurs Peripheral Pulses: pulses 2+ throughout GI normal to inspection, nondistended, normoactive bowel sounds, soft to palpation, non-tender, non-distended and no masses Back/Spine no CVA tenderness, normal to inspection and no thoracic nor lumbar tenderness Back/Spine Narrative: Negative straight leg raises. Deep tendon reflexes are plus out of 4 bilaterally at the patella Achilles. Patient has normal 5 extension bilaterally. Patient has normal sensation to light touch. Thoracic Spine / Upper Back: paraspinal muscle tenderness Lumbar Spine / Lower Back: ROM limited and straight leg raise negative bilater ally Extremity normal to inspection General Extremety ED: Negative for edema General Extremity: Negative for edema Neuro oriented x3, CN's II-XII intact bilaterally, no sensory deficits noted and gait normal Sensorium / Orientation: awake, alert, oriented to person, oriented to place and oriented to time Motor Exam: strength 5/5 throughout and strength abnormal Psych mental status grossly normal Skin no rashes or lesions noted and no wounds MDM MDM MDM Narrative Medical decision making narrative: Patient was medicated Dilaudid 1 mg IM and Zofran 4 mg IM. I suspect he has musculoskeletal back pain and likely lumbar strain. Patient will be given a prescription for [place] for pain. He is advised to follow-up with his primary care physician 3 to 5 days. He is to minimize lifting. Discharge Plan Triage Chief Complaint: Back ED Provider: Dominique Ricci Dx/Rx/DC Orders Clinical Impression: Acute lumbar myofascial strain Instructions: ED Back Sprain/Strain Prescriptions: New hydrocodone-acetaminophen [hydrocodone-acetaminophen] 1 TABLET tablet 1 tab PO Q4H PRN PRN (Reason: Pain) 2 Days Qty: 10 RF: 0 ondansetron [ondansetron] 4 MG tablet 4 mg PO Q8H PRN PRN (Reason: Nausea) Qty: 10 RF: 0 No Action bupropion HCl 150 MG tablet sustained-release 12 hr 300 mg PO DAILY RF: 0 hydroxyzine pamoate 50 MG capsule 25 mg PO DAILY RF: 0 naproxen 500 MG tablet 500 mg PO BID PRN PRN (Reason: Pain Score 4-10) Qty: 20 RF: 0 Primary Care Provider: Jameson Sood Referrals: Jameson Sood MD [Primary Care Provider] - 3-5 Days Disposition Disposition: Home, self care
[2021-04-20] MEDS: HYDROmorphone 1 MG/ML Syringe IM (17:47)
[2021-04-20] MEDS: Ondansetron 4 MG/2 ML Vial IM (17:47)
[2021-04-20 18:11] VITALS: BP 150/97
== END 2021-04-20 18:13 | disposition home or self-care (01) ==
LOC: ED 17:45
PROVIDERS: Emergency Provider Emergency Medicine; PCP Family Medicine
DX: S39.012A Strain of muscle, fascia and tendon of lower back, initial encounter (principal); X50.1XXA Overexertion from prolonged static or awkward postures, initial encounter; Y92.89 Other specified places as the place of occurrence of the external cause; Y99.8 Other external cause status; F41.9 Anxiety disorder, unspecified; F32.9 Major depressive disorder, single episode, unspecified; Z85.528 Personal history of other malignant neoplasm of kidney
CPT/HCPCS: 96372; 99282; J2405

== ENCOUNTER 2021-05-12 13:53 | Emergency (ER) | payer MEDICAID, SELFPAY ==
[2021-05-12 13:54] VITALS: BP 153/86; PULSE 89; RESP 15; TEMP 36.6; O2SAT 94; BMI 55.3
[2021-05-12] MEDS: Ketorolac 15 MG/ML Vial IM (14:49)
--- NOTE | 2021-05-12 14:53 | ED.VIS.DENTA ---
HPI History of Present Illness Chief Complaint: Dental Narrative Narrative: 45-year-old male presents with concern for dental pain. States that he had a broken tooth approximately 1 year ago. Had it filled but that feeling has since fallen out approximately 2 to 3 weeks ago. Pain has been increasing. Concerned about infection. Does have appointment with his dentist next week. Describes the pain is aching. Worse with chewing. Denies any fever, chills, vision change, headache, neck pain. PFSH PFSH Medical History Abdominal pain Anxiety Arthritis Depression History of kidney cancer Home Medications bupropion HCl 300 mg PO DAILY 02/03/20 [History Last Taken 03/30/20 08:00 300 mg] hydroxyzine pamoate 25 mg PO DAILY 02/03/20 [History Last Taken 03/30/20 08:00 25 mg] naproxen 500 mg PO BID PRN PRN #20 tab 10/08/20 [Rx Last Taken Unknown] hydrocodone-acetaminophen 1 tab PO Q4H PRN PRN 2 Days #10 tablet 04/20/21 [Rx Last Taken Unknown] ondansetron 4 mg PO Q8H PRN PRN #10 tab 04/20/21 [Rx Last Taken Unknown] naproxen 500 mg PO BID #14 tab 05/12/21 [Rx Last Taken Unknown] penicillin V potassium 500 mg PO 4X/DAY #40 tab 05/12/21 [Rx Last Taken Unknown] Allergy/AdvReac Type Severity Reaction Status Date / Time hydrocortisone Allergy Rash Verified 05/12/21 13:54 tramadol AdvReac Nausea Verified 05/12/21 13:54 Family History Father Diabetes Hypertension CAD (coronary artery disease) Surgical History Hx of partial nephrectomy Hx of umbilical hernia repair S/P recurrent ventral herniorrhaphy Social History Smoking Status: Never smoker second hand exposure: No alcohol intake: never substance use type: does not use caffeine: Yes what type of physical activity do you participate in: none frequency: does not exercise seatbelt use: always ROS ROS ED Constitutional Constitutional ED: Denies chills, fever(s) or sweats Eyes Eyes: Denies blurry vision, change in vision or diplopia ENT ENT ED: Reports other Details: Dental pain ; Denies rhinorrhea or sore throat Cardiovascular Cardiovascular: Denies chest pain, orthopnea, palpitations or racing heartbeat Respiratory/Chest Respiratory/Chest: Denies cough, dyspnea, dyspnea on exertion, orthopnea or sputum Gastrointestinal Gastrointestinal: Denies abdominal pain, constipation, diarrhea, melena, nausea or vomiting Genitourinary Genitourinary ED: Denies dysuria, hematuria or urinary frequency Musculoskeletal Musculoskeletal: Denies arthralgias, myalgias or neck pain Integumentary Denies rash Neurologic Neurologic: Denies headache(s), paresthesias or weakness Psychiatric Psychiatric: Denies anxiety or depression Hematologic/Lymphatic Hematologic/Lymphatic: Denies easy bleeding or easy bruising Allergic/Immunologic Allergic/Immunologic ED: Denies mouth swelling or tongue swelling EXAM Physical Exam Const Vital Signs: 05/12/21 13:54 Temperature 97.9 F Temperature Source Temporal Pulse Rate 89 Respiratory Rate 15 Blood Pressure 153/86 H Blood Pressure Mean 108 Pulse Ox 94 Oxygen Delivery Method Room Air Positive well nourished and well developed General Appearance ED: well developed HEENT Reports moist mucous membranes HEENT Narrative: Poor dentition throughout. First left incisor has large defect with obvious dental carry. No evidence of abscess. normocephalic and atraumatic Eyes PERRL and EOMs intact bilaterally Neck no lymphadenopathy, supple and no JVD Chest Wall inspection of chest normal Resp normal respiratory effort and clear to auscultation bilaterally Cardio regular rate, S1 normal heart sound, S2 normal heart sound and no murmurs Peripheral Pulses: pulses 2+ throughout GI soft to palpation, non-tender and non-distended Back/Spine no CVA tenderness and no thoracic nor lumbar tenderness Extremity normal to inspection General Extremety ED: Negative for edema or tenderness General Extremity: Negative for edema Neuro oriented x3, CN's II-XII intact bilaterally and no sensory deficits noted Sensorium / Orientation: alert Motor Exam: strength 5/5 throughout Psych mental status grossly normal Skin no rashes or lesions noted MDM MDM MDM Narrative Medical decision making narrative: Patient appears well nontoxic. Afebrile. Patient given intramuscular Toradol. Given Naprosyn and penicillin for home. Stable at time of discharge. Discharge Plan Triage Chief Complaint: Dental ED Provider: Graeme Koenig Dx/Rx/DC Orders Clinical Impression: Pain, dental Instructions: ED Dental Pain Prescriptions: New naproxen 500 mg tablet 500 mg PO BID Qty: 14 RF: 0 penicillin V potassium 500 mg tablet 500 mg PO 4X/DAY Qty: 40 RF: 0 No Action bupropion HCl 150 MG tablet sustained-release 12 hr 300 mg PO DAILY RF: 0 hydroxyzine pamoate 50 MG capsule 25 mg PO DAILY RF: 0 naproxen 500 MG tablet 500 mg PO BID PRN PRN (Reason: Pain Score 4-10) Qty: 20 RF: 0 hydrocodone-acetaminophen [hydrocodone-acetaminophen] 1 TABLET tablet 1 tab PO Q4H PRN PRN (Reason: Pain) 2 Days Qty: 10 RF: 0 ondansetron [ondansetron] 4 MG tablet 4 mg PO Q8H PRN PRN (Reason: Nausea) Qty: 10 RF: 0 Primary Care Provider: Jameson Sood Referrals: Jameson Sood MD [Primary Care Provider] - 2 Days Disposition Disposition: Home, Self Care
== END 2021-05-12 15:15 | disposition home or self-care (01) ==
LOC: ED 15:00
PROVIDERS: Emergency Provider Emergency Medicine; PCP Family Medicine
DX: K08.89 Other specified disorders of teeth and supporting structures (principal); Z90.5 Acquired absence of kidney; F32.9 Major depressive disorder, single episode, unspecified; F41.9 Anxiety disorder, unspecified; Z79.1 Long term (current) use of non-steroidal anti-inflammatories (NSAID); Z85.528 Personal history of other malignant neoplasm of kidney; M19.90 Unspecified osteoarthritis, unspecified site
CPT/HCPCS: 96372; 99282

== ENCOUNTER 2021-06-18 13:58 | Emergency (ER) | payer MEDICAID, SELFPAY ==
[2021-06-18 14:00] VITALS: BP 160/96; PULSE 78; RESP 18; TEMP 37.2; O2SAT 99; BMI 53.7
--- NOTE | 2021-06-18 14:12 | EX.ED.UPPERE ---
HPI History of Present Illness Chief Complaint: Upper Extremity Injury Narrative Narrative: Patient presents with left shoulder pain after lifting at work as well as carrying a freezer up the steps from the basement. No other injury. He has had this pain for 2 weeks. It is hard to lift his hand over his head. Pain is achy worse with movement. PFSH PFS Medical History Abdominal pain Anxiety Arthritis Depression History of kidney cancer Home Medications bupropion HCl 300 mg PO DAILY 02/03/20 [History Last Taken 03/30/20 08:00 300 mg] hydroxyzine pamoate 25 mg PO DAILY 02/03/20 [History Last Taken 03/30/20 08:00 25 mg] naproxen 500 mg PO BID PRN PRN #20 tab 10/08/20 [Rx Last Taken Unknown] hydrocodone-acetaminophen 1 tab PO Q4H PRN PRN 2 Days #10 tablet 04/20/21 [Rx Last Taken Unknown] ondansetron 4 mg PO Q8H PRN PRN #10 tab 04/20/21 [Rx Last Taken Unknown] naproxen 500 mg PO BID #14 tab 05/12/21 [Rx Last Taken Unknown] penicillin V potassium 500 mg PO 4X/DAY #40 tab 05/12/21 [Rx Last Taken Unknown] Allergy/AdvReac Type Severity Reaction Status Date / Time hydrocortisone Allergy Rash Verified 06/18/21 13:59 tramadol AdvReac Nausea Verified 06/18/21 13:59 Family History Father Diabetes Hypertension CAD (coronary artery disease) Surgical History Hx of partial nephrectomy Hx of umbilical hernia repair S/P recurrent ventral herniorrhaphy Social History Smoking Status: Never smoker second hand exposure: No alcohol intake: never substance use type: does not use caffeine: Yes what type of physical activity do you participate in: none frequency: does not exercise seatbelt use: always ROS ROS ED ROS Narrative Past medical history: none Medications: Reviewed Social history: Noncontributory Review of systems: Musculoskeletal: Left shoulder pain as in HPI Skin: No abrasions or lacerations Neurological: No weakness or paresthesias Hematologic: No easy bleeding or easy bruising EXAM Physical Exam Narrative Exam Narrative: Physical exam General: Patient does not appear in significant distress . Head: Normocephalic, Atraumatic Neck: No C-spine tenderness Cardiovascular: Normal distal pulses Back: Nontender, Normal Inspection. Extremities: There is left shoulder pain, it is mostly over the deltoid and superior part of the shoulder however there is quite a bit of pain with abduction more than 90degrees as well as moving the arm behind the back. Skin: No abrasions, no lacerations Neurological: Normal strength and sensation Const Vital Signs: 06/18/21 14:00 Temperature 98.9 F Temperature Source Temporal Pulse Rate 78 Respiratory Rate 18 Blood Pressure 160/96 H Blood Pressure Mean 117 Pulse Ox 99 Oxygen Delivery Method Room Air MDM MDM MDM Narrative Medical decision making narrative: Patient has rotator cuff tendinitis, he appears well. I did inject his shoulder see procedure note below. Otherwise I will discharge him to follow-up for physical rehab. Procedure note: Left shoulder injection Indication rotator cuff tendinitis Verbal consent obtained Posterior approach, a 22-gauge needle I placed 20 mg of Kenalog and 4 mL of 1% lidocaine. Patient tolerated procedure quite well. Discharge Plan Triage Chief Complaint: Upper Extremity Injury ED Provider: Jann Sibley Dx/Rx/DC Orders Clinical Impression: Right rotator cuff tendinitis Instructions: Rotator Cuff Injury Prescriptions: No Action bupropion HCl 150 MG tablet sustained-release 12 hr 300 mg PO DAILY RF: 0 hydroxyzine pamoate 50 MG capsule 25 mg PO DAILY RF: 0 naproxen 500 MG tablet 500 mg PO BID PRN PRN (Reason: Pain Score 4-10) Qty: 20 RF: 0 hydrocodone-acetaminophen [hydrocodone-acetaminophen] 1 TABLET tablet 1 tab PO Q4H PRN PRN (Reason: Pain) 2 Days Qty: 10 RF: 0 ondansetron [ondansetron] 4 MG tablet 4 mg PO Q8H PRN PRN (Reason: Nausea) Qty: 10 RF: 0 naproxen 500 mg tablet 500 mg PO BID Qty: 14 RF: 0 penicillin V potassium 500 mg tablet 500 mg PO 4X/DAY Qty: 40 RF: 0 Primary Care Provider: Jameson Sood Referrals: Jameson Sood MD [Primary Care Provider] - 2 Days (for referral to physical therapy) Disposition Disposition: Home, Self Care
[2021-06-18] MEDS: Triamcinolone Acetonide 40 MG/ML Vial IM (14:23)
[2021-06-18] MEDS: Lidocaine 1% (20 ml mdv) 20 ML Vial INFILT (14:23)
== END 2021-06-18 14:55 | disposition home or self-care (01) ==
LOC: ED 14:49
PROVIDERS: Emergency Provider Emergency Medicine; PCP Family Medicine
DX: M75.101 Unspecified rotator cuff tear or rupture of right shoulder, not specified as traumatic (principal); Z90.5 Acquired absence of kidney; Z85.528 Personal history of other malignant neoplasm of kidney; Z79.1 Long term (current) use of non-steroidal anti-inflammatories (NSAID); F32.9 Major depressive disorder, single episode, unspecified; F41.9 Anxiety disorder, unspecified
CPT/HCPCS: 96372; 99282

== ENCOUNTER 2021-07-25 07:26 | Emergency (ER) | payer MEDICAID, SELFPAY ==
[2021-07-25 07:27] VITALS: BP 132/91; PULSE 78; RESP 18; TEMP 36.6; O2SAT 97; BMI 54.7
--- NOTE | 2021-07-25 07:46 | EDS_ITS ---
HPI History of Present Illness Chief Complaint: Upper Extremity Injury Informant: patient Occured/Mechanism Mechanism/Context: Yes injury Onset/Context/Timing Onset: Days Context: Sudden Onset Timing: Continuous Quality of Pain: Sharp Current Severity: Mild Maximum Severity: Moderate Narrative Narrative: 46-year-old male left hand dominant. He was at a camp site on Friday slipped and fell injuring his left shoulder. Complaining of pain and decreased range of motion. No prior surgery to the left shoulder significant problems. Prior similar symptoms: No Recent Illness/Hospitalization: No PFSH PFSH Medical History Abdominal pain Anxiety Arthritis Depression History of kidney cancer Home Medications bupropion HCl 300 mg PO DAILY 02/03/20 [History Last Taken 03/30/20 08:00 300 mg] hydroxyzine pamoate 25 mg PO DAILY 02/03/20 [History Last Taken 03/30/20 08:00 25 mg] naproxen 500 mg PO BID PRN PRN #20 tab 10/08/20 [Rx Last Taken Unknown] hydrocodone-acetaminophen 1 tab PO Q4H PRN PRN 2 Days #10 tablet 04/20/21 [Rx Last Taken Unknown] ondansetron 4 mg PO Q8H PRN PRN #10 tab 04/20/21 [Rx Last Taken Unknown] naproxen 500 mg PO BID #14 tab 05/12/21 [Rx Last Taken Unknown] penicillin V potassium 500 mg PO 4X/DAY #40 tab 05/12/21 [Rx Last Taken Unknown] Allergy/AdvReac Type Severity Reaction Status Date / Time hydrocortisone Allergy Rash Verified 07/25/21 07:29 tramadol AdvReac Nausea Verified 07/25/21 07:29 Family History Father Diabetes Hypertension CAD (coronary artery disease) Surgical History Hx of partial nephrectomy Hx of umbilical hernia repair S/P recurrent ventral herniorrhaphy Social History Smoking Status: Never smoker second hand exposure: No alcohol intake: never substance use type: does not use caffeine: Yes what type of physical activity do you participate in: none frequency: does not exercise seatbelt use: always ROS ROS ED ROS Narrative Denies recent illness. Review of Systems ROS Unobtainable: Denies due to encephalopathy Constitutional Constitutional ED: Denies frequent falls Eyes Eyes: Denies change in vision ENT ENT ED: Denies ear pain Cardiovascular Cardiovascular: Denies chest pain Respiratory/Chest Respiratory/Chest: Denies cough or dyspnea Gastrointestinal Gastrointestinal: Denies abdominal pain, diarrhea, nausea or vomiting Genitourinary Genitourinary ED: Denies dysuria Musculoskeletal Musculoskeletal: Denies myalgias Integumentary Denies rash Neurologic Neurologic: Denies headache(s) Psychiatric Psychiatric: Denies depression Endocrine Endocrinology: Denies polyuria Hematologic/Lymphatic Hematologic/Lymphatic: Denies easy bruising Allergic/Immunologic Allergic/Immunologic ED: Denies urticaria EXAM Physical Exam Narrative Exam Narrative: Middle-age male no acute distress. Vital signs stable afebrile. HEENT exam unremarkable atraumatic. C-spine and spine nontender. Back nontender. Lungs are clear. Heart regular rhythm. Abdomen soft nontender. Moving all 4 extremities. Left shoulder tenderness to palpation. No gross bony deformity. Elbow and wrist nontender normal range of motion to those 2 joints. Normal manager critical care unit strength of his left hand normal pulse. He has decreased ABD duction of his left shoulder. Can raise it to about the level of his shoulder and is too much pain to raise it higher than that. Neurologic exam normal. Const Vital Signs: 07/25/21 07:27 Temperature 97.9 F Temperature Source Temporal Pulse Rate 78 Respiratory Rate 18 Blood Pressure 132/91 H Blood Pressure Mean 104 Pulse Ox 97 Oxygen Delivery Method Room Air Positive well nourished, well developed and obese; Negative for cachectic, contractures or unkempt General Appearance ED: well developed and NAD; Negative for unkempt, cachectic or contractures Nutritional Appearance: obese; Negative for cachectic HEENT Reports moist mucous membranes normocephalic and atraumatic; Negative for trauma or tenderness Eyes PERRL and EOMs intact bilaterally Neck full ROM and supple General: Negative for tenderness Chest Wall inspection of chest normal and palpation of chest normal Resp normal respiratory effort and clear to auscultation bilaterally Cardio regular rate, regular rhythm, S1 normal heart sound, S2 normal heart sound and no murmurs GI non-tender, non-distended and no masses Auscultation: normoactive bowel sounds Palpation: soft; Negative for tender, guarding or rebound tenderness present Back/Spine no CVA tenderness General Back: Negative for CVA tenderness Cervical Spine: Negative for cervical spine tenderness Thoracic Spine / Upper Back: Negative for thoracic spinal tenderness Extremity normal to inspection; Negative for full ROM Extremity Narrative: Right upper and both lower extremities are unremarkable nontender. Left shoulder is tender palpation. Decreased range of motion. Specifically decreased ABD duction. He has trouble raising above his left shoulder. Normal manager critical care unit strength left hand. Neuro oriented x3 and CN's II-XII intact bilaterally Sensorium / Orientation: alert, oriented to person, oriented to place and oriented to time; Negative for orientation impaired, lethargic or stuporous Psych mental status grossly normal Appearance: Negative for unkempt Skin Lesions: no lesions Rashes: no rashes Trauma: no lacerations or abrasions; Negative for abrasion or laceration MDM MDM MDM Narrative Medical decision making narrative: 46-year-old male left hand dominant. Fell on Friday complaint left shoulder pain and decreased range of motion. X-ray being obtained. Repeat exam patient doing well at 10 AM. He is able to lift and hold his arm up above his shoulder. I do not think he has a rotator cuff tear. Can I discussed that. His x-ray results. Ice to the area. Motrin for pain and swelling and follow-up if not regaining normal range of motion. Radiography Diagnostic Testing: Left shoulder x-ray 3 views shows no acute abnormality. Mild fracture chronic changes. Myself and the radiologist. Discharge Plan Triage Chief Complaint: Upper Extremity Injury ED Provider: Robin Epps Dx/Rx/DC Orders Clinical Impression: Fall, Contusion of shoulder, left Instructions: ED Shoulder Sprain Prescriptions: No Action bupropion HCl 150 MG tablet sustained-release 12 hr 300 mg PO DAILY RF: 0 hydroxyzine pamoate 50 MG capsule 25 mg PO DAILY RF: 0 naproxen 500 MG tablet 500 mg PO BID PRN PRN (Reason: Pain Score 4-10) Qty: 20 RF: 0 hydrocodone-acetaminophen [hydrocodone-acetaminophen] 1 TABLET tablet 1 tab PO Q4H PRN PRN (Reason: Pain) 2 Days Qty: 10 RF: 0 ondansetron [ondansetron] 4 MG tablet 4 mg PO Q8H PRN PRN (Reason: Nausea) Qty: 10 RF: 0 naproxen 500 mg tablet 500 mg PO BID Qty: 14 RF: 0 penicillin V potassium 500 mg tablet 500 mg PO 4X/DAY Qty: 40 RF: 0 Primary Care Provider: Jameson Sood Referrals: Jameson Sood MD [Primary Care Provider] - 1 Week if not improving Activity Restrictions/Additional Instructions: You have a bruise and sprain of your left shoulder. X-rays were negative. Ice to decrease pain and swelling. Motrin for pain and swelling. This should progressively improve. You should maintain normal range of motion and the pain should eventually go away. If not follow-up with your doctor for further evaluation. Disposition Disposition: Home, Self Care
--- NOTE | 2021-07-25 07:55 | RAD_ITS ---
STUDY: X-RAY - LEFT SHOULDER REASON FOR EXAM: Male, 46 years old. Pain TECHNIQUE: 4 view(s) of the shoulder. COMPARISON: Comparison is made with prior study dated 03/31/2020. FINDINGS: Normal glenohumeral articulation. There is degenerative arthrosis of the acromioclavicular joint without inferior osseous spur formation. Normal acromion. Normal humeral head and visualized proximal humerus. The soft tissue structures are unremarkable. Normal visualized pulmonary apex. RAD/Shoulder min 2 Views IMPRESSION: Mild degree of degenerative changes of the acromioclavicular joint. Electronically Signed: Chencho Templeton MD at 8:14 EDT , Service support ,
== END 2021-07-25 10:06 | disposition home or self-care (01) ==
PROVIDERS: Emergency Provider Emergency Medicine; PCP Family Medicine
DX: S40.012A Contusion of left shoulder, initial encounter (principal); W01.0XXA Fall on same level from slipping, tripping and stumbling without subsequent striking against object, initial encounter; Y93.9 Activity, unspecified; Y92.833 Campsite as the place of occurrence of the external cause; Y99.9 Unspecified external cause status; F32.9 Major depressive disorder, single episode, unspecified; F41.9 Anxiety disorder, unspecified; Z79.1 Long term (current) use of non-steroidal anti-inflammatories (NSAID); Z85.528 Personal history of other malignant neoplasm of kidney; Z90.5 Acquired absence of kidney
CPT/HCPCS: 73030; 99282

== ENCOUNTER 2021-08-20 10:46 | Emergency (ER) | payer MEDICAID, SELFPAY ==
[2021-08-20 10:46] VITALS: BP 156/96; PULSE 67; RESP 16; TEMP 36.6; O2SAT 99; BMI 55.0
--- NOTE | 2021-08-20 11:52 | RAD_ITS ---
STUDY: X-RAY - LEFT KNEE REASON FOR EXAM: Male, 46 years old. LEFT KNEE GAVE OUT WHILE WALKIND DOWN STAIRS AND FELL DOWN LAST 4 STEPS. MOSTLY LATERAL PAIN. HX ARTHRITIS. TECHNIQUE: 5 view(s) of the knee. COMPARISON: 12/20/2019 FINDINGS: Normal visualized distal femur. Normal visualized proximal tibia and fibula. Normal proximal tibiofibular articulation. There is severe degenerative arthrosis of the medial femorotibial compartment with severe joint space narrowing. There is severe degenerative arthrosis of the lateral femorotibial compartment with severe joint space narrowing. There is severe degenerative arthrosis of the patellofemoral articulation. There is a soft tissue prominence in the suprapatellar region suggesting a small to moderate-sized joint effusion. The soft tissue structures are unremarkable. RAD/Knee 4 or More Views IMPRESSION: No demonstrated fracture or malalignment. Small to moderate joint effusion. Tricompartmental osteoarthrosis. Electronically Signed: Jigar Moreau MD ([place]) at 12:08 EDT , Service support ,
--- NOTE | 2021-08-20 11:56 | EDS_ITS ---
HPI History of Present Illness HPI Narrative: Patient presents with left knee injury that occurred today. Patient states he fell down some steps today. Patient states his knee gave out. Patient states his pain is sharp and aching. Patient states it is worse with any movement. Patient states nothing seems to help with the pain. Patient denies any paresthesias. Patient denies any weakness but states he is unable to move his leg or bear any weight due to the pain. Patient denies any head injury or loss of consciousness. Patient denies any other injuries. Chief Complaint: Lower Extremity Injury Informant: patient Occured/Mechanism Mechanism/Context: Yes fall Onset/Context/Timing Onset: Today Context: Sudden Onset Timing: Continuous Quality of Pain: Sharp and Aching Worsened by: Movement, weightbearing Relieved by: Nothing Associated Symptoms Associated Symptoms: Negative for Parasthesia and Weakness PFSH PFS Medical History Abdominal pain Anxiety Arthritis Depression History of kidney cancer Home Medications bupropion HCl 300 mg PO DAILY 02/03/20 [History Last Taken 03/30/20 08:00 300 mg] hydroxyzine pamoate 25 mg PO DAILY 02/03/20 [History Last Taken 03/30/20 08:00 25 mg] aspirin [Baby Aspirin] 81 mg PO DAILY 08/20/21 [History Last Taken Unknown] hydrocodone-acetaminophen 1 tab PO Q6H PRN PRN 3 Days #10 tablet 08/20/21 [Rx Last Taken Unknown] naproxen 500 mg PO BID PRN PRN #20 tab 08/20/21 [Rx Last Taken Unknown] Allergy/AdvReac Type Severity Reaction Status Date / Time hydrocortisone Allergy Rash Verified 08/20/21 10:48 tramadol AdvReac Nausea Verified 08/20/21 10:48 Family History Father Diabetes Hypertension CAD (coronary artery disease) Surgical History Hx of partial nephrectomy Hx of umbilical hernia repair S/P recurrent ventral herniorrhaphy Social History Smoking Status: Never smoker second hand exposure: No alcohol intake: never substance use type: does not use caffeine: Yes what type of physical activity do you participate in: none frequency: does not exercise seatbelt use: always ROS ROS ED Constitutional Constitutional ED: Denies chills or fever(s) Eyes Eyes: Denies blurry vision or change in vision ENT ENT ED: Denies rhinorrhea or sore throat Cardiovascular Cardiovascular: Denies chest pain or palpitations Respiratory/Chest Respiratory/Chest: Denies cough or dyspnea Gastrointestinal Gastrointestinal: Denies nausea or vomiting Genitourinary Genitourinary ED: Denies dysuria or hematuria Musculoskeletal Musculoskeletal: Denies back pain or neck pain Integumentary Denies abscess or rash Neurologic Neurologic: Denies headache(s) or weakness Allergic/Immunologic Allergic/Immunologic ED: Denies mouth swelling or urticaria EXAM Physical Exam Const Vital Signs: 08/20/21 10:46 Temperature 97.8 F Temperature Source Temporal Pulse Rate 67 Respiratory Rate 16 Blood Pressure 156/96 H Blood Pressure Mean 116 Pulse Ox 99 Oxygen Delivery Method Room Air Positive well nourished, well developed and obese General Appearance ED: well developed Nutritional Appearance: obese HEENT Reports moist mucous membranes Extremity Extremity Narrative: There is diffuse tenderness over the left knee. There is a mild effusion noted. There is no bony crepitance or step-off. Extensor mechanism is intact. Range of motion was limited in all motions of the left knee secondary to pain. Pedal pulses are equal bilateral. Sensation was intact to light touch bilaterally in the lower extremities. Neuro oriented x3, CN's II-XII intact bilaterally, moves all extremities and no sensory deficits noted Sensorium / Orientation: alert Motor Exam: strength 5/5 throughout Psych mental status grossly normal MDM MDM MDM Narrative Medical decision making narrative: Patient was given a dose of [place] here. X- rays of the left knee were obtained. There are 5 views. On my interpretation, there is no acute fracture. There is no dislocation. There are degenerative changes noted. There is a mild joint effusion. Radiologist also interpreted the x-rays and agrees. Patient was given crutches. Patient was given a prescription for naproxen. Patient was given a prescription for a short course of [place] for severe pain. Patient was instructed to ice and elevate the left knee. Patient was given a note for work. Patient was instructed to follow-up with his primary care physician in 5 to 7 days. Patient understood and was a greeable with the plan. All questions were answered. Radiography Diagnostic Testing: Radiology Impression Knee X-Ray 08/20/21 11:52 IMPRESSION: No demonstrated fracture or malalignment. Small to moderate joint effusion. Tricompartmental osteoarthrosis. Electronically Signed: Jigar Moreau MD ([place]) at 12:08 EDT , Service support , Discharge Plan Triage Chief Complaint: Lower Extremity Injury ED Provider: Sergio Santos Dx/Rx/DC Orders Clinical Impression: Left knee sprain Instructions: ED Knee Sprain Prescriptions: New hydrocodone-acetaminophen [hydrocodone-acetaminophen] 1 TABLET tablet 1 tab PO Q6H PRN PRN (Reason: Pain) 3 Days Qty: 10 RF: 0 Continued naproxen 500 MG tablet 500 mg PO BID PRN PRN (Reason: Pain Score 4-10) Qty: 20 RF: 0 No Action bupropion HCl 150 MG tablet sustained-release 12 hr 300 mg PO DAILY RF: 0 hydroxyzine pamoate 50 MG capsule 25 mg PO DAILY RF: 0 aspirin [Baby Aspirin] 81 mg Tablet,Chewable 81 mg PO DAILY RF: 0 Stand Alone Forms: Work Status Form Primary Care Provider: Jameson Sood Referrals: Jameson Sood MD [Primary Care Provider] - 3-5 Days Disposition Disposition: Home, Self Care Discharge Date/Time: 08/20/21 13:28
[2021-08-20] MEDS: HYDROcodone Bitartrate/Apap 5/325 Tablet PO (12:14)
== END 2021-08-20 13:28 | disposition home or self-care (01) ==
PROVIDERS: Emergency Provider Emergency Medicine; PCP Family Medicine
DX: S83.92XA Sprain of unspecified site of left knee, initial encounter (principal); W10.9XXA Fall (on) (from) unspecified stairs and steps, initial encounter; M17.12 Unilateral primary osteoarthritis, left knee; Z79.82 Long term (current) use of aspirin; F41.9 Anxiety disorder, unspecified; F32.A Depression, unspecified; Z85.528 Personal history of other malignant neoplasm of kidney; Z90.5 Acquired absence of kidney
CPT/HCPCS: 73564; 99284

== ENCOUNTER 2021-12-29 10:57 | Emergency (ER) | payer MEDICAID, SELFPAY ==
[2021-12-29 10:57] VITALS: BP 170/99; PULSE 72; RESP 18; TEMP 36.4; O2SAT 100; BMI 56.2
--- NOTE | 2021-12-29 11:16 | EDS_ITS ---
HPI History of Present Illness Chief Complaint: Dental Informant: patient Onset/Context/Timing Onset: Days Context: Sudden Onset Timing: Continuous Current Severity: Mild Maximum Severity: Moderate Relieved by: NSAIDs Associated Symptoms Assocated Symptom - Dental: cold sensitivity; Negative for fever, jaw swelling or face swelling Narrative Narrative: 46-year-old male denies any sniffing past medical history. He was u sing his snowblower on Friday he slipped on the ice he believes the handle of the snowblower hit him in his left mouth causing him to fracture his left upper premolar and molar. He was seen at the [facility] dental clinic. They placed him on antibiotic. They can see him again this coming Friday and he may have some dental procedures done. He is using Tylenol and Motrin says are not controlling his pain. Of note he does have a care plan here at this facility. Denies any other significant injuries from the fall. Prior similar symptoms: Yes Recent Illness/Hospitalization: No PFSH PFS Medical History Abdominal pain Anxiety Arthritis Depression History of kidney cancer Home Medications bupropion HCl 300 mg PO DAILY 02/03/20 [History Last Taken 03/30/20 08:00 300 mg] hydroxyzine pamoate 25 mg PO DAILY 02/03/20 [History Last Taken 03/30/20 08:00 25 mg] aspirin [Baby Aspirin] 81 mg PO DAILY 08/20/21 [History Last Taken Unknown] hydrocodone-acetaminophen 1 tab PO Q6H PRN PRN 3 Days #10 tablet 08/20/21 [Rx Last Taken Unknown] naproxen 500 mg PO BID PRN PRN #20 tab 08/20/21 [Rx Last Taken Unknown] Allergy/AdvReac Type Severity Reaction Status Date / Time hydrocortisone Allergy Rash Verified 12/29/21 10:59 tramadol AdvReac Nausea Verified 12/29/21 10:59 Family History Father Diabetes Hypertension CAD (coronary artery disease) Surgical History Hx of partial nephrectomy Hx of umbilical hernia repair S/P recurrent ventral herniorrhaphy Social History Smoking Status: Never smoker second hand exposure: No alcohol intake: never substance use type: does not use caffeine: Yes what type of physical activity do you participate in: none frequency: does not exercise seatbelt use: always ROS ROS ED ROS Narrative Denies recent illness. Review of Systems ROS Unobtainable: Denies due to encephalopathy Constitutional Constitutional ED: Denies anorexia Eyes Eyes: Denies blindness, blind spots or bloody eye ENT ENT ED: Reports dental pain; Denies bloody eye or change in voice Cardiovascular Cardiovascular: Denies abdominal pain Respiratory/Chest Respiratory/Chest: Denies chest congestion Genitourinary Genitourinary ED: Denies abdominal discomfort Musculoskeletal Musculoskeletal: Denies deformity or difficulty walking Integumentary Denies change in hair, jaundice or laceration Neurologic Neurologic: Denies abnormal movements or abnormal speech Psychiatric Psychiatric: Denies auditory hallucinations Endocrine Endocrinology: Denies deepening of the voice Hematologic/Lymphatic Hematologic/Lymphatic: Reports none; Denies lymphadenopathy Allergic/Immunologic Allergic/Immunologic ED: Reports none; Denies lip swelling or mouth swelling EXAM Physical Exam Narrative Exam Narrative: Middle-aged male no acute distress vital signs stable afebrile. Elevated blood pressure 170/99. H EENT exam. Reactive light no signs of facial trauma. His left upper dentition there are cavities. He has a fracture of the left upper premolar and the molar beside that tooth. There is no gum swelling or bleeding. No abscess. No trismus. There is no swelling of his face. Has no difficulty breathing or swallowing. He has overall poor dentition in other areas of cavities. The jaw is nontender. He has no malocclusion. No scalp trauma. No neck pain. No lymphadenopathy. Lungs clear to auscultation. Heart regular rhythm. Abdomen soft nontender morbidly obese. Moving all 4 extremities. Nontender. Back nontender. Neurologically awake and alert with no focal motor deficits. Const Vital Signs: 12/29/21 10:57 Temperature 97.5 F L Temperature Source Temporal Pulse Rate 72 Respiratory Rate 18 Blood Pressure 170/99 H Blood Pressure Mean 122 Pulse Ox 100 Oxygen Delivery Method Room Air Positive well nourished, well developed, obese, alert, oriented x3, no apparent distress and no limitations; Negative for cachectic, contractures or unkempt General Appearance ED: well developed; Negative for unkempt, cachectic or contractures Nutritional Appearance: obese; Negative for cachectic HEENT Reports normocephalic, head/scalp atraumatic, external nose normal, moist mucous membranes and moist oral mucous membranes HEENT Narrative: Left upper premolar and molar beside that tooth are fractured and have caries. There is no gingival swelling or abscess at this time. No trismus. No difficulty opening or closing his mouth. Eyes PERRL, EOMs intact bilaterally, conjunctivae normal, no scleral icterus and no papilledema General Eye ED: Yes normal appearance of both eyes Neck full ROM, No nuchal rigidity, no lymphadenopathy, supple, no meningeal signs, no JVD, No thyroid normal and No nodes Lymph Lymphatic: no lymphadenopathy noted and no lymphedema noted; Negative for lymphedema or lymphadenopathy Chest Wall inspection of chest normal and palpation of chest normal Resp normal respiratory effort, normal air movement, no retractions and no use of accessory muscles Cardio regular rate, regular rhythm, S1 normal heart sound, S2 normal heart sound, no murmurs, no rub, no gallops, no clicks and no JVD GI normal to inspection, nondistended, normoactive bowel sounds, soft to palpation, non-tender and non-distended no CVA tenderness Back/Spine no CVA tenderness, normal to inspection, thoracic and lumbar spine normal to inspection and no thoracic nor lumbar tenderness Extremity normal to inspection, full ROM, no joint enlargement, no calf tenderness and no pedal edema Neuro oriented x3, CN's II-XII intact bilaterally, moves all extremities and no focal motor deficits Motor Exam: strength 5/5 throughout and no fasciculations Psych mental status grossly normal and thought process normal; Negative for cooperative, affect normal or speech normal Appearance: grossly normal; Negative for unkempt Attitude: calm and engaged Skin no rashes or lesions noted, no wounds, No skin turgor normal, no jaundice, no petechiae and no mottling MDM MDM MDM Narrative Medical decision making narrative: Middle-aged male fell has fractures of his left upper molar and premolar. He also has dental caries. He is currently already on antibiotic. He is requesting narcotic pain medication. Patient has a known care plan here in this emergency department. I explained to him we could do Tylenol and Motrin. Also ice to the area. He was also offered a dental block which he deferred. He understands why we do not write narcotics for dental pain. He has a follow-up dental appointment at the [facility] in clinic on Friday. Discharge Plan Triage Chief Complaint: Dental ED Provider: Robin Epps Dx/Rx/DC Orders Clinical Impression: Pain, dental, Dental trauma, Dental caries Instructions: ED Dental Pain, ED Dental Trauma Prescriptions: No Action bupropion HCl 150 MG tablet sustained-release 12 hr 300 mg PO DAILY RF: 0 hydroxyzine pamoate 50 MG capsule 25 mg PO DAILY RF: 0 aspirin [Baby Aspirin] 81 mg Tablet,Chewable 81 mg PO DAILY RF: 0 hydrocodone-acetaminophen [hydrocodone-acetaminophen] 1 TABLET tablet 1 tab PO Q6H PRN PRN (Reason: Pain) 3 Days Qty: 10 RF: 0 naproxen 500 MG tablet 500 mg PO BID PRN PRN (Reason: Pain Score 4-10) Qty: 20 RF: 0 Primary Care Provider: Jameson Sood Referrals: Heaven Guevara [NON-STAFF] - Keep [facility] appointment Jameson Sood MD [Primary Care Provider] - Activity Restrictions/Additional Instructions: Alternate Motrin and Tylenol for pain. Continue antibiotic. Ice to your jaw to decrease pain and swelling. Follow-up with your scheduled dental appointment. Disposition Disposition: Home, Self Care
== END 2021-12-29 11:28 | disposition home or self-care (01) ==
PROVIDERS: Emergency Provider Emergency Medicine; PCP Family Medicine; Visit Provider Emergency Medicine
DX: K02.9 Dental caries, unspecified (principal); K08.89 Other specified disorders of teeth and supporting structures; Z79.82 Long term (current) use of aspirin; F32.A Depression, unspecified; F41.9 Anxiety disorder, unspecified
CPT/HCPCS: 99282

== ENCOUNTER 2022-05-17 19:14 | Emergency (ER) | payer MEDICAID, SELFPAY ==
[2022-05-17 19:15] VITALS: BP 121/94; PULSE 76; RESP 15; TEMP 36.3; O2SAT 99; BMI 54.7
== END 2022-05-17 20:25 | disposition left against medical advice (07) ==
LOC: ED 20:25
PROVIDERS: PCP Family Medicine
DX: K92.9 Disease of digestive system, unspecified (principal)

== ENCOUNTER 2022-06-10 06:00 | Emergency (ER) | payer MEDICAID, SELFPAY ==
[2022-06-10 06:01] VITALS: BP 140/103; PULSE 76; RESP 17; TEMP 36.3; O2SAT 93; BMI 56.7
[2022-06-10 06:04] VITALS: O2SAT 96
--- NOTE | 2022-06-10 06:16 | RAD_ITS ---
STUDY: X-RAY - LEFT KNEE REASON FOR EXAM: Anterior left knee pain, left knee injury. TECHNIQUE: 3 view(s) of the knee. COMPARISON: Radiographs 08/20/2021. FINDINGS: Normal visualized distal femur. Normal visualized proximal tibia and fibula. Normal proximal tibiofibular articulation. There are marginal osteophytes and joint space narrowing of the medial femorotibial compartment. There are marginal osteophytes and joint space narrowing of the lateral femorotibial compartment. There are marginal osteophytes and joint space narrowing of the patellofemoral articulation. There is a joint effusion. RAD/Knee 3 Views IMPRESSION: Tricompartmental arthrosis. Joint effusion. No demonstrated fracture. Electronically Signed: Dominick Lindsay MD at 7:12 EDT ,
--- NOTE | 2022-06-10 06:21 | EDS_ITS ---
HPI History of Present Illness Chief Complaint: Fall Informant: patient Onset/Context/Timing Onset: Today Location of pain/injuries: Left knee Quality of Pain: Aching and Throbbing Current Severity: Moderate Maximum Severity: Moderate Narrative Narrative: Patient presents secondary to left knee injury. He states he was coming down his steps this morning which were wet. His right foot went out from under him. He came down landing on his flexed left knee. He has pain to the anterior left knee with difficulty ambulating. He denies any other injury. [facility] Medical History Abdominal pain Anxiety Arthritis Depression History of kidney cancer Home Medications bupropion HCl 150 mg tablet,12 hr sustained-release 300 mg PO DAILY depression 02/03/20 [History Last Taken 03/30/20 08:00 300 mg] hydroxyzine pamoate 50 mg capsule 25 mg PO DAILY anxiety 02/03/20 [History Last Taken 03/30/20 08:00 25 mg] aspirin 81 mg chewable tablet 81 mg PO DAILY 08/20/21 [History Last Taken Unknown] hydrocodone-acetaminophen 5-325mg 5mg-325mg 1 tab PO Q6H PRN pain 3 days #10 tabs 06/10/22 [Rx Last Taken Unknown] naproxen 500 mg tablet (Naprosyn) 500 mg PO BID PRN pain #20 tabs 06/10/22 [Rx Last Taken Unknown] Allergy/AdvReac Type Severity Reaction Status Date / Time hydrocortisone Allergy Rash Verified 06/10/22 06:04 tramadol AdvReac Nausea Verified 06/10/22 06:04 Family History Father Diabetes Hypertension CAD (coronary artery disease) Surgical History Hx of partial nephrectomy Hx of umbilical hernia repair S/P recurrent ventral herniorrhaphy Social History Smoking Status: Never smoker second hand exposure: No alcohol intake: never substance use type: does not use caffeine: Yes what type of physical activity do you participate in: none frequency: does not exercise seatbelt use: always ROS ROS ED Constitutional Constitutional ED: Denies chills or fever(s) Eyes Eyes: Denies change in vision or discharge from eye(s) ENT ENT ED: Denies discharge from eye(s), rhinorrhea or sore throat Cardiovascular Cardiovascular: Denies chest pain or palpitations Respiratory/Chest Respiratory/Chest: Denies cough or dyspnea Gastrointestinal Gastrointestinal: Denies abdominal pain, diarrhea, nausea or vomiting Genitourinary Genitourinary ED: Denies dysuria Musculoskeletal Musculoskeletal: Reports extremity pain; Denies back pain Integumentary Denies Abrasions or rash Neurologic Neurologic: Denies headache(s) or weakness Allergic/Immunologic Allergic/Immunologic ED: Denies lip swelling or urticaria EXAM Physical Exam Const Vital Signs: 06/10/22 06:00 06/10/22 06:01 06/10/22 06:04 Temperature 97.4 F L Temperature Source Temporal Pulse Rate 76 Respiratory Rate 17 Respiratory Effort Normal Respiratory Depth Normal Respiratory Pattern Normal Blood Pressure 140/103 H Blood Pressure Mean 115 Pulse Ox 93 96 Oxygen Delivery Method Room Air Room Air Room Air Positive obese Nutritional Appearance: obese HEENT atraumatic Eyes PERRL and EOMs intact bilaterally Neck full ROM Chest Wall inspection of chest normal and palpation of chest normal Resp normal respiratory effort and clear to auscultation bilaterally Cardio regular rhythm Rate: regular rate GI normal to inspection, nondistended, normoactive bowel sounds Extremity Extremity Narrative: Tenderness palpation over the anterior left knee. No abrasions or ecchymosis. No significant edema. Patient able to extend knee. No tenderness of the calf or ankle. Neuro oriented x3, moves all extremities and no focal motor deficits Psych Mood & Affect: tearful Skin no rashes or lesions noted MDM MDM MDM Narrative Medical decision making narrative: Patient was given Naprosyn and [place]. Left knee x-rays obtained. Radiography Diagnostic Testing: Clinical Impression(s) from Imaging Studies Knee X-Ray 06/10/22 06:16 IMPRESSION: Tricompartmental arthrosis. Joint effusion. No demonstrated fracture. Electronically Signed: Dominick Lindsay MD at 7:12 EDT , Treatment and Re-Evaluation Narrative: Left knee x-rays per my interpretation reveal significant arthritic changes. No significant change when compared to prior study from August 2021. Radiology interpretation is reviewed. He does have a joint effusion. This was also present on his prior study. Patient has crutches at home that he can use to help as needed. He will be given a short prescription for Naprosyn with a few [place] for breakthrough pain. Discharge Plan Triage Chief Complaint: Fall ED Provider: Meghan Martínez Dx/Rx/DC Orders Clinical Impression: Left knee sprain Instructions: ED Mechanical Fall, ED Knee Sprain Prescriptions: New naproxen [Naprosyn] 500 mg tablet 500 mg PO BID PRN (Reason: pain) Qty: 20 0RF hydrocodone-acetaminophen 5-325 mg tablet 1 tab PO Q6H PRN (Reason: pain) 3 Days Qty: 10 0RF Discontinued hydrocodone-acetaminophen [hydrocodone-acetaminophen] 1 TABLET tablet 1 tab PO Q6H PRN PRN (Reason: Pain) 3 Days Qty: 10 0RF naproxen 500 MG tablet 500 mg PO BID PRN PRN (Reason: Pain Score 4-10) Qty: 20 0RF No Action bupropion HCl 150 MG tablet sustained-release 12 hr 300 mg PO DAILY hydroxyzine pamoate 50 MG capsule 25 mg PO DAILY aspirin [Baby Aspirin] 81 mg Tablet,Chewable 81 mg PO DAILY Primary Care Provider: Jameson Sood Referrals: Jameson Sood MD [Primary Care Provider] - 1 Week if not improving Disposition Disposition: Home, Self Care
[2022-06-10] MEDS: HYDROcodone Bitartrate/Apap 5/325 Tablet PO (06:34)
[2022-06-10] MEDS: Naproxen 500 MG Tablet PO (06:35)
[2022-06-10 08:08] VITALS: BP 141/70; PULSE 68; RESP 15; O2SAT 98
== END 2022-06-10 08:11 | disposition home or self-care (01) ==
PROVIDERS: Emergency Provider Emergency Medicine; PCP Family Medicine; Visit Provider Emergency Medicine
DX: S83.92XA Sprain of unspecified site of left knee, initial encounter (principal); W10.9XXA Fall (on) (from) unspecified stairs and steps, initial encounter; Z85.528 Personal history of other malignant neoplasm of kidney; Z79.82 Long term (current) use of aspirin
CPT/HCPCS: 73562; 99283

== ENCOUNTER 2022-07-10 16:48 | Emergency (ER) | payer MEDICAID, SELFPAY ==
[2022-07-10 16:49] VITALS: BP 168/98; PULSE 68; RESP 20; TEMP 36.8; O2SAT 98; BMI 57.9
--- NOTE | 2022-07-10 17:06 | EX.ED.GENINJ ---
HPI History of Present Illness Chief Complaint: Chest Other Informant: patient Narrative Narrative: Patient presents with primarily right-sided anterior lateral rib pain. He felt fine until he had a slip fall and landed on a deck. He he was weed eating and stepped on some slippery material. He states he did also hit the front of his chest and has a bruise there just to the left of the sternum but that is not really that sore. He is not short of breath. It does hurt a little bit to breathe. Also hurts mostly to twist move or to press on the area. He is not actually short of breath. No fevers or chills. This happened 6 days ago. He has been trying Naprosyn without success. [facility] Medical History Abdominal pain Anxiety Arthritis Depression History of kidney cancer Home Medications bupropion HCl 150 mg tablet,12 hr sustained-release 300 mg PO DAILY depression 02/03/20 [History Last Taken 03/30/20 08:00 300 mg] naproxen 500 mg tablet (Naprosyn) 500 mg PO BID PRN pain #20 tabs 06/10/22 [Rx Last Taken Unknown] hydrocodone-acetaminophen 5-325mg 5mg-325mg 1 tab PO Q6H PRN pain 3 days #10 tabs 07/10/22 [Rx Last Taken Unknown] sertraline 50 mg tablet 50 mg PO DAILY 07/10/22 [History Last Taken Unknown] Allergy/AdvReac Type Severity Reaction Status Date / Time hydrocortisone Allergy Rash Verified 07/10/22 16:49 tramadol AdvReac Nausea Verified 07/10/22 16:49 Family History Father Diabetes Hypertension CAD (coronary artery disease) Surgical History Hx of partial nephrectomy Hx of umbilical hernia repair S/P recurrent ventral herniorrhaphy Social History Smoking Status: Never smoker second hand exposure: No alcohol intake: never substance use type: does not use caffeine: Yes what type of physical activity do you participate in: none frequency: does not exercise seatbelt use: always ROS ROS ED Constitutional Constitutional ED: Denies chills, fever(s) or sweats ENT ENT ED: Denies rhinorrhea or sore throat Cardiovascular Cardiovascular: Reports chest pain; Denies palpitations or racing heartbeat Respiratory/Chest Respiratory/Chest: Denies cough, dyspnea, dyspnea on exertion or sputum Gastrointestinal Gastrointestinal: Denies abdominal pain, diarrhea, melena, nausea or vomiting Genitourinary Genitourinary ED: Denies hematuria Musculoskeletal Musculoskeletal: Denies back pain Integumentary Reports other Details: Contusion on chest wall Neurologic Neurologic: Denies headache(s) or paresthesias Endocrine Endocrinology: Denies polydipsia or polyuria Hematologic/Lymphatic Hematologic/Lymphatic: Denies easy bleeding or easy bruising Allergic/Immunologic Allergic/Immunologic ED: Denies urticaria EXAM Physical Exam Const Vital Signs: 07/10/22 16:49 07/10/22 17:01 Temperature 98.2 F Temperature Source Temporal Pulse Rate 68 Respiratory Rate 20 H Respiratory Effort Normal Non-Labored Respiratory Pattern Normal Blood Pressure 168/98 H Blood Pressure Mean 121 Pulse Ox 98 Oxygen Delivery Method Room Air Positive well nourished, well developed and obese General Appearance ED: well developed and NAD Nutritional Appearance: obese HEENT atraumatic Neck full ROM Chest Wall Chest Narrative: Patient does have a small visible contusion just left of the sternum. There is also an area in the right anterior axillary line. But there is no subcutaneous air. Resp normal respiratory effort Resp Narrative: It does hurt to take a deep breath but also hurts to move or press on the area. But his lungs are clear. Auscultation: Negative for rales, rhonchi or wheezes Cardio regular rhythm and no murmurs Rate: regular rate GI normal to inspection, nondistended, normoactive bowel sounds and non-tender Neuro Sensorium / Orientation: alert Psych mental status grossly normal Skin Skin Narrative: Contusion as above. MDM MDM MDM Narrative Medical decision making narrative: X-ray does not show a clear rib fracture. But there is some hemidiaphragm elevation and atelectasis on the right which is consistent with the injury and potential fracture not seen. I talk with this patient. I explained that he has a history of narcotic problems I will write for a few pain pills. As I think he has a good chance of having an acute fracture. He does have some external bruising and some x-ray findings. However, I explained that he needs to use ice rest Naprosyn and deal with a little bit of discomfort before he takes the narcotic. It is possible to get through this injury without narcotics. I will provide some to help because 8 does appear as though he has an acute new condition. Radiography Diagnostic Testing: Clinical Impression(s) from Imaging Studies Ribs w/Chest X-Ray 07/10/22 17:10 IMPRESSION: RIBS: Normal x-ray examination of the ribs. CHEST: Elevated right hemidiaphragm and minor discoid atelectasis in right base. Electronically Signed: Derek Serrato MD at 17:36 EDT , Discharge Plan Triage Chief Complaint: Chest Other ED Provider: Ke Stroud Dx/Rx/DC Orders Clinical Impression: Chest wall contusion, Atelectasis Instructions: ED Chest Wall Contusion Prescriptions: New hydrocodone-acetaminophen 5-325 mg tablet 1 tab PO Q6H PRN (Reason: pain) 3 Days Qty: 10 0RF No Action bupropion HCl 150 MG tablet sustained-release 12 hr 300 mg PO DAILY naproxen [Naprosyn] 500 mg tablet 500 mg PO BID PRN (Reason: pain) Qty: 20 0RF sertraline 50 mg tablet 50 mg PO DAILY Label Comments: Take 1/2 tablet by mouth daily for 6 days, then increase to 1 tablet at bedtime Primary Care Provider: Jameson Sood Referrals: Jameson Sood MD [Primary Care Provider] - 3-5 Days if not improving Disposition Disposition: Home, Self Care
[2022-07-10] MEDS: HYDROcodone Bitartrate/Apap 5/325 Tablet PO (17:09)
--- NOTE | 2022-07-10 17:10 | RAD_ITS ---
STUDY: X-RAY - UNILATERAL RIBS ( RIGHT ) WITH CHEST REASON FOR EXAM: Male, 47 years old. trauma TECHNIQUE - RIBS: 5 view(s) of the ribs. TECHNIQUE - CHEST: PA COMPARISON: None. FINDINGS - RIBS: Normal visualized ribs without a demonstrated fracture. FINDINGS - CHEST: Mildly elevated right hemidiaphragm and discoid atelectasis at the right base.. There is no demonstrated pleural abnormality. Normal size heart. Normal mediastinum and dunia. Normal visualized pulmonary arteries. Normal visualized aortic arch and descending thoracic aorta. Dorsal spine and shoulders demonstrate degenerative change. Normal visualized ribs, clavicles, and shoulders. There is no demonstrated abnormality of the visualized soft tissue structures of the upper abdomen. RAD/Ribs Uni Min 3V w/PA Chest IMPRESSION: RIBS: Normal x-ray examination of the ribs. CHEST: Elevated right hemidiaphragm and minor discoid atelectasis in right base. Electronically Signed: Derek Serrato MD at 17:36 EDT ,
--- NOTE | 2022-07-10 17:42 | CM.ED ---
Social Work Note Reason for Referral: ED Care Plan SW reviewed chart and pt has ED Care Plan. SW updated MD Stroud. Carmelita Laws OCEANOGRAPHER GEOLOGICAL, EXECUTIVE MARKETING ASSISTANT
== END 2022-07-10 18:06 | disposition home or self-care (01) ==
PROVIDERS: Emergency Provider Emergency Medicine; PCP Family Medicine; Visit Provider Emergency Medicine
DX: S20.20XA Contusion of thorax, unspecified, initial encounter (principal); J98.11 Atelectasis; W01.0XXA Fall on same level from slipping, tripping and stumbling without subsequent striking against object, initial encounter; F41.9 Anxiety disorder, unspecified; F32.A Depression, unspecified; Z85.528 Personal history of other malignant neoplasm of kidney
CPT/HCPCS: 71101; 99282

== ENCOUNTER 2022-09-09 18:56 | Emergency (ER) | payer MEDICAID, SELFPAY ==
[2022-09-09 18:57] VITALS: BP 165/95; PULSE 88; RESP 18; TEMP 37.1; O2SAT 97; BMI 53.4
--- NOTE | 2022-09-09 20:11 | CM.ED ---
Patient has a care plan due to high number of ED visits, multiple visits for pain related complaints and history of anxiety and depression. Ebony HERNDON
[2022-09-09] MEDS: Morphine 4 MG/ML Syringe IV (21:23)
[2022-09-09] MEDS: Ondansetron 4 MG/2 ML Vial IV (21:23)
[2022-09-09 21:27] LABS: Mucous, Urine 0 SEEN /hpf (<or=2+); Red Blood Cells-Urine 0 SEEN /hpf (0-5); Squamous Epithelial Cells - UA 0 SEEN /hpf (0-5); White Blood Cells 0 SEEN /hpf (0-5)
[2022-09-09 21:30] LABS: Absolute Lymphocyte Count 1.47 X10^3/uL (0.83-4.51); Absolute Neutrophil Count 5.2 X10^3/uL (2.0-7.7); Basophil# 0.02 X10^3/uL; Basophil% 0.3 % (0-1); Eosinophil# 0.17 X10^3/uL; Eosinophils% 2.3 % (0-5); Hemoglobin 13.3 g/dL (13.0-16.5); Lymphocyte # 1.47 X10^3/ul (0.83-4.51); Lymphocyte % 20.1 % (19-41); Mean Corp Hgb Conc 31.7 g/dL (32-36); Mean Corpuscular Hgb 28.5 pg (27.0-32.0); Mean Corpuscular Volume 89.9 fL (80-94); Mean Platelet Vol. 10.4 fl (6.2-12.0); Monocyte# 0.45 X10^3/uL; Monocyte% 6.2 % (0-10); NRBC Flagged by Analyzer 0 % (0-5); Neutrophil # 5.16 X10^3/uL (2.7-7.7); Neutrophil % 70.6 % (47-70); Platelet Count 171 K/mm3 (150-450); RBC Distribution Width CV 13.6 % (11.6-14.6); RBC Distribution Width SD 44.4 fl (35.1-43.9); Red Blood Count 4.67 M/mm3 (4.6-6.2); White Blood Count 7.3 K/mm3 (4.4-11.0)
[2022-09-09 21:37] LABS: Color, Urine Yellow (Yellow); Glucose, Dipstick Normal (Normal); Ketone-Dipstick Negative (Negative); Leukocyte Esterase-Dipstick Negative /ul (Negative); Nitrite-Dipstick Negative (Negative); Occult Blood-Urine Negative /ul (Negative); Protein-Dipstick Negative (Negative); Specific Gravity, Urine 1.015 (1.002-1.030); Urine Bilirubin Dipstick Negative (Negative); Urine Clarity Clear (Clear); Urine Urobilinogen Normal (Normal); Urine pH 6.5 (5.0 - 8.0)
[2022-09-09 21:44] LABS: Anion Gap 5 (5-15); BUN 20 mg/dL (7-18); BUN/Creat Ratio 21.5 RATIO (10-20); Calcium,Total 8.9 mg/dL (8.5-10.1); Chloride 105 mmol/L (98-107); Creatinine, Serum 0.93 mg/dL (0.70-1.30); EST Glomerular Filtration Rate 92 mL/min (>60); Est Glom Filt Rate - Afr Amer 112 mL/min (>60); Estimated Creatinine Clearance 98.19 ml/min; Glucose 88 mg/dL (74-106); Potassium 4.3 mmol/L (3.5-5.1); Sodium Level 140 mmol/L (136-145)
[2022-09-09 21:56] LABS: Bacteria RARE /hpf (None Seen)
--- NOTE | 2022-09-09 22:28 | EX.ED.DYSGE1 ---
HPI History of Present Illness Chief Complaint: Abd Pain Informant: patient Onset/Context/Timing Onset: Days Context: Gradual Onset Timing: Continuous Quality: Breakdown of incision site right side of the abdomen Location: Right upper abdomen Current Severity: Mild Maximum Severity: Mild Worsened by: Nothing Relieved by: Nothing Associated Symptoms Associated Symptoms: Pain Narrative Narrative: Patient is a 47-year-old male with history of renal carcinoma status post nephrectomy who presents because of pain at the incision site and breakdown of the incision site. Procedure was done at [facility]. Patient denies fever, chills night sweats. Patient denies dysuria, frequency, urgency or hematuria. Patient states that the wound is bloody. He has an old appearing Band-Aid over the wound. Prior similar symptoms: No Recent Illness/Hospitalization: Yes PFSH PFSH Medical History Abdominal pain Anxiety Arthritis Depression History of kidney cancer Home Medications bupropion HCl 150 mg tablet,12 hr sustained-release 300 mg PO DAILY depression 02/03/20 [History Last Taken 03/30/20 08:00 300 mg] naproxen 500 mg tablet (Naprosyn) 500 mg PO BID PRN pain #20 tabs 06/10/22 [Rx Last Taken Unknown] hydrocodone-acetaminophen 5-325mg 5mg-325mg 1 tab PO Q6H PRN pain 3 days #10 tabs 07/10/22 [Rx Last Taken Unknown] sertraline 50 mg tablet 50 mg PO DAILY 07/10/22 [History Last Taken Unknown] Allergy/AdvReac Type Severity Reaction Status Date / Time hydrocortisone Allergy Rash Verified 09/09/22 19:00 tramadol AdvReac Nausea Verified 09/09/22 19:00 Family History Father Diabetes Hypertension CAD (coronary artery disease) Surgical History (Updated 09/09/22 @ 23:[address] Tyrell Michaels MD) Hx of partial nephrectomy Hx of umbilical hernia repair S/P recurrent ventral herniorrhaphy Social History (Updated 09/09/22 @ 22:[address] Tyrell Michaels MD) household members: none Smoking Status: Never smoker second hand exposure: No alcohol intake: never substance use type: does not use caffeine: Yes what type of physical activity do you participate in: none frequency: does not exercise seatbelt use: always ROS ROS ED Constitutional Constitutional ED: Reports chills, fever(s), subjective, sweats and weight loss Eyes Eyes: Reports blurry vision; Denies change in vision ENT ENT ED: Denies rhinorrhea or sore throat Cardiovascular Cardiovascular: Denies chest pain or palpitations Respiratory/Chest Respiratory/Chest: Denies cough, dyspnea or dyspnea on exertion Gastrointestinal Gastrointestinal: Reports abdominal pain; Denies diarrhea, melena, nausea or vomiting Genitourinary Genitourinary ED: Denies dysuria, hematuria or urinary frequency Musculoskeletal Musculoskeletal: Denies arthralgias, back pain, myalgias or neck pain Integumentary Reports other Details: Breakdown superior aspect of the incision site approximately 2 cm in diameter. There is serous drainage. There is no erythema, warmth or induration. There is no fluctuance. ; Denies abscess, Abrasions or rash EXAM Physical Exam Const Vital Signs: 09/09/22 18:57 Temperature 98.8 F Temperature Source Temporal Pulse Rate 88 Respiratory Rate 18 Blood Pressure 165/95 H Blood Pressure Mean 118 Pulse Ox 97 Oxygen Delivery Method Room Air Positive well nourished, well developed, obese and unkempt General Appearance ED: unkempt, well developed and NAD; Negative for pallor Nutritional Appearance: obese HEENT Reports moist mucous membranes HEENT Narrative: Is a traumatic normocephalic. Ears normal. Nares patent. Mucosa moist. Eyes PERRL and EOMs intact bilaterally General Eye ED: Negative for pale conjunctiva or scleral icterus Neck no lymphadenopathy, supple and no JVD Resp normal respiratory effort and clear to auscultation bilaterally Cardio regular rate, regular rhythm, S1 normal heart sound and no murmurs GI non-distended and no masses; Negative for non-tender or hepatosplenomegaly Inspection: Negative for abdominal distention Auscultation: hypoactive bowel sounds Palpation: soft and tender other (Tenderness in the proximity of the wound.); Negative for guarding, splenomegaly or rebound tenderness present Back/Spine no CVA tenderness Extremity normal to inspection General Extremety ED: Yes edema; Negative for tenderness General Extremity: edema Neuro oriented x3, CN's II-XII intact bilaterally and no sensory deficits noted Sensorium / Orientation: alert Psych Appearance: unkempt Skin no rashes or lesions noted, No no wounds and skin turgor normal Skin Narrative: Previously described under the review of systems General Skin Exam: elasticity normal; Negative for jaundice or pallor MDM MDM Lab Data Attestation: I reviewed the patient's lab results. Lab results narrative: CBC is unremarkable. Basic metabolic panel is unremarkable. UA is unremarkable. Labs: Laboratory Results - last 24 hr 09/09/22 09/09/22 09/09/22 21:17 21:17 21:20 WBC 7.3 RBC 4.67 Hgb 13.3 Hct 42.0 MCV 89.9 MCH 28.5 MCHC 31.7 L RDW Std Deviation 44.4 H RDW Coeff of Roberto 13.6 Plt Count 171 MPV 10.4 Immature Gran % (Auto) 0.500 Neut % (Auto) 70.6 H Lymph % (Auto) 20.1 [place] % (Auto) 6.2 Eos % (Auto) 2.3 Baso % (Auto) 0.3 Absolute Neuts (auto) 5.2 Absolute Lymphs (auto) 1.47 Nucleated RBC % 0 Sodium 140 Potassium 4.3 Chloride 105 Carbon Dioxide 30.0 Anion Gap 5 BUN 20 H Creatinine 0.93 Estim Creat Clear Calc 98.19 Est GFR (MDRD) Af Amer 112 Est GFR (MDRD) Non-Af 92 BUN/Creatinine Ratio 21.5 H Glucose 88 Calcium 8.9 Urine Color Yellow Urine Clarity Clear Urine pH 6.5 Ur Specific [place] 1.015 Urine Protein Negative Urine Glucose (UA) Normal Urine Ketones Negative Urine Occult Blood Negative Urine Nitrite Negative Urine Bilirubin Negative Urine Urobilinogen Normal Ur Leukocyte Esterase Negative Urine RBC 0 SEEN Urine WBC 0 SEEN Ur Squamous Epith Cells 0 SEEN Urine Bacteria RARE Urine Mucus 0 SEEN Discharge Plan Triage Chief Complaint: Abd Pain ED Provider: Tyrell Michaels Dx/Rx/DC Orders Clinical Impression: Abdominal wound dehiscence, Hx of partial nephrectomy Instructions: Wound Dehiscence Prescriptions: No Action bupropion HCl 150 MG tablet sustained-release 12 hr 300 mg PO DAILY naproxen [Naprosyn] 500 mg tablet 500 mg PO BID PRN (Reason: pain) Qty: 20 0RF sertraline 50 mg tablet 50 mg PO DAILY Label Comments: Take 1/2 tablet by mouth daily for 6 days, then increase to 1 tablet at bedtime hydrocodone-acetaminophen 5-325 mg tablet 1 tab PO Q6H PRN (Reason: pain) 3 Days Qty: 10 0RF Primary Care Provider: Jameson Sood Referrals: Jameson Sood MD [Primary Care Provider] - Activity Restrictions/Additional Instructions: Wet-to-dry dressing changes 2-3 times a day Follow-up with your chicken and fish [employer] in 5 to 7 days. Disposition Disposition: Home, Self Care
== END 2022-09-09 23:14 | disposition home or self-care (01) ==
PROVIDERS: Emergency Provider Emergency Medicine; PCP Family Medicine; Visit Provider Emergency Medicine
DX: S31.109A Unspecified open wound of abdominal wall, unspecified quadrant without penetration into peritoneal cavity, initial encounter (principal); Z85.528 Personal history of other malignant neoplasm of kidney; Z90.5 Acquired absence of kidney
CPT/HCPCS: 80048; 81001; 85025; 99283; A4216; J2405

== ENCOUNTER 2022-09-25 07:56 | Emergency (ER) | payer MEDICAID, SELFPAY ==
[2022-09-25 07:57] VITALS: BP 190/96; PULSE 70; RESP 18; TEMP 36.6; O2SAT 100; BMI 58.5
--- NOTE | 2022-09-25 08:11 | EDS_ITS ---
HPI History of Present Illness Chief Complaint: Dental Detail of Chief Complaint: Dental pain for 1 week Informant: patient Narrative Narrative: Patient presents the emergency department complaint of dental pain for 1 week. Patient states that he has multiple broken upper teeth and has been trying to get into a dentist but because of his insurance he is having a hard time finding somebody that will see him. Patient denies any chest pain or shortness of breath. Patient states his gums hurt. Patient states that putting pressure on the right side of his face makes the pain worse. He denies fevers. PFSH PFSH Medical History Abdominal pain Anxiety Arthritis Depression History of kidney cancer Home Medications bupropion HCl 150 mg tablet,12 hr sustained-release 300 mg PO DAILY depression 02/03/20 [History Last Taken 03/30/20 08:00 300 mg] naproxen 500 mg tablet (Naprosyn) 500 mg PO BID PRN pain #20 tabs 06/10/22 [Rx Last Taken Unknown] hydrocodone-acetaminophen 5-325mg 5mg-325mg 1 tab PO Q6H PRN pain 3 days #10 tabs 07/10/22 [Rx Last Taken Unknown] sertraline 50 mg tablet 50 mg PO DAILY 07/10/22 [History Last Taken Unknown] clindamycin HCl 300 mg capsule (Cleocin HCl) 300 mg PO Q6H #40 CAPSULES 09/25/22 [Rx Last Taken Unknown] hydrocodone-acetaminophen 5-325mg 5mg-325mg 1 tab PO Q4H PRN PRN Pain 2 days #10 TABLETS 09/25/22 [Rx Last Taken Unknown] Allergy/AdvReac Type Severity Reaction Status Date / Time hydrocortisone Allergy Rash Verified 09/25/22 07:59 tramadol AdvReac Nausea Verified 09/25/22 07:59 Family History Father Diabetes Hypertension CAD (coronary artery disease) Surgical History Hx of partial nephrectomy Hx of umbilical hernia repair S/P recurrent ventral herniorrhaphy Social History (Updated 09/09/22 @ 22:[address] Tyrell Michaels MD) household members: none Smoking Status: Never smoker second hand exposure: No alcohol intake: never substance use type: does not use caffeine: Yes what type of physical activity do you participate in: none frequency: does not exercise seatbelt use: always ROS ROS ED Review of Systems ROS Unobtainable: other Constitutional Constitutional ED: Reports lethargy; Denies chills, fever(s), sweats or weight loss Eyes Eyes: Denies blurry vision, change in vision or diplopia ENT ENT ED: Reports other Details: Dental pain ; Denies rhinorrhea or sore throat Cardiovascular Cardiovascular: Denies chest pain, orthopnea or racing heartbeat Respiratory/Chest Respiratory/Chest: Denies cough, dyspnea, dyspnea on exertion, orthopnea or sputum Gastrointestinal Gastrointestinal: Denies abdominal pain, diarrhea, nausea or vomiting Genitourinary Genitourinary ED: Denies dysuria, hematuria or urinary frequency Musculoskeletal Musculoskeletal: Denies arthralgias, back pain, myalgias or neck pain Integumentary Denies abscess, Abrasions or rash Neurologic Neurologic: Denies headache(s) or weakness Psychiatric Psychiatric: Denies anxiety, depression or suicidal thoughts Endocrine Endocrinology: Denies polydipsia, polyphagia or polyuria Hematologic/Lymphatic Hematologic/Lymphatic: Denies easy bleeding, easy bruising or lymphadenopathy Allergic/Immunologic Allergic/Immunologic ED: Denies mouth swelling, tongue swelling or urticaria EXAM Physical Exam Const Vital Signs: 09/25/22 07:57 Temperature 97.9 F Temperature Source Temporal Pulse Rate 70 Respiratory Rate 18 Blood Pressure 190/96 H Blood Pressure Mean 127 Pulse Ox 100 Oxygen Delivery Method Room Air Positive well nourished and well developed General Appearance ED: well developed and NAD HEENT Reports TM's clear and moist mucous membranes HEENT Narrative: Dentition-patient has multiple broken and carried teeth to the right upper and left upper. No gingival abscess noted. No facial erythema or cellulitis. Patient does have pain on palpation diffusely to the upper teeth. normocephalic and atraumatic; Negative for trauma or tenderness Tympanic Membrane ED: Yes TM's clear Eyes PERRL and EOMs intact bilaterally General Eye ED: Negative for pale conjunctiva or scleral icterus Neck no lymphadenopathy, supple and no JVD General: Negative for tenderness Chest Wall inspection of chest normal and palpation of chest normal Chest: Negative for tenderness Resp normal respiratory effort and clear to auscultation bilaterally Effort and Inspection: Negative for respiratory distress or pain with movement Auscultation: Negative for rhonchi, wheezes or diminished lung sounds Cardio regular rate, regular rhythm, S1 normal heart sound, S2 normal heart sound and no murmurs Peripheral Pulses: pulses 2+ throughout GI normal to inspection, nondistended, normoactive bowel sounds, soft to palpation, non-tender, non-distended and no masses Back/Spine no CVA tenderness and no thoracic nor lumbar tenderness Extremity normal to inspection General Extremety ED: Negative for edema General Extremity: Negative for edema Neuro oriented x3, CN's II-XII intact bilaterally, no sensory deficits noted and gait normal Sensorium / Orientation: awake, alert, oriented to person, oriented to place and oriented to time Motor Exam: strength 5/5 throughout and strength abnormal Psych mental status grossly normal Skin no rashes or lesions noted and no wounds MDM MDM MDM Narrative Medical decision making narrative: Patient will be started on clindamycin and given [place] for pain. Patient will be given a list of dentists in the area to follow-up with. Discharge Plan Triage Chief Complaint: Dental ED Provider: Dominique Ricci Dx/Rx/DC Orders Clinical Impression: Pain, dental Instructions: ED Dental Pain Prescriptions: New clindamycin HCl [Cleocin HCl] 300 MG capsule 300 mg PO Q6H Qty: 40 0RF hydrocodone-acetaminophen [hydrocodone-acetaminophen] 1 TABLET tablet 1 tab PO Q4H PRN PRN (Reason: Pain) 2 Days Qty: 10 0RF No Action bupropion HCl 150 MG tablet sustained-release 12 hr 300 mg PO DAILY naproxen [Naprosyn] 500 mg tablet 500 mg PO BID PRN (Reason: pain) Qty: 20 0RF sertraline 50 mg tablet 50 mg PO DAILY Label Comments: Take 1/2 tablet by mouth daily for 6 days, then increase to 1 tablet at bedtime hydrocodone-acetaminophen 5-325 mg tablet 1 tab PO Q6H PRN (Reason: pain) 3 Days Qty: 10 0RF Primary Care Provider: Jameson Sood Referrals: Jameson Sood MD [Primary Care Provider] - Activity Restrictions/Additional Instructions: Follow-up with a dentist at the earliest possible time. Disposition Disposition: Home, Self Care
[2022-09-25] MEDS: Clindamycin HCl 150 MG Capsule 300 MG PO (08:23)
== END 2022-09-25 08:25 | disposition home or self-care (01) ==
LOC: ED 08:18
PROVIDERS: Emergency Provider Emergency Medicine; PCP Family Medicine; Visit Provider Emergency Medicine
DX: K08.89 Other specified disorders of teeth and supporting structures (principal); F32.A Depression, unspecified; F41.9 Anxiety disorder, unspecified; Z85.528 Personal history of other malignant neoplasm of kidney
CPT/HCPCS: 99283

== ENCOUNTER 2022-11-01 08:06 | Emergency (ER) | payer MEDICAID, SELFPAY ==
[2022-11-01 08:07] VITALS: BP 152/100; PULSE 80; RESP 20; TEMP 36.8; O2SAT 100; BMI 55.0
--- NOTE | 2022-11-01 08:21 | EDS_ITS ---
HPI History of Present Illness Chief Complaint: Dental Detail of Chief Complaint: Dental pain Informant: patient Narrative Narrative: Patient with dental pain for about 3 weeks. Patient states he was seen in the emergency department 3 weeks ago and was given a dentist list and was started on antibiotic and pain medicine. Patient followed up with a dentist and was told he needed to finish his antibiotics and they made him an appointment for 5 days from now to be seen about possible extractions. Patient states in the meantime his left upper incisor broke and he is having pain there as well as well as to his gums. He called in today but the doctors and were not in and was told to come to the ER to get more antibiotics. Patient denies fevers. Prior similar symptoms: Yes PFSH PFSH Medical History Abdominal pain Anxiety Arthritis Depression History of kidney cancer Home Medications bupropion HCl 150 mg tablet,12 hr sustained-release 300 mg PO DAILY depression 02/03/20 [History Last Taken 03/30/20 08:00 300 mg] sertraline 50 mg tablet 50 mg PO DAILY 07/10/22 [History Last Taken Unknown] clindamycin HCl 300 mg capsule (Cleocin HCl) 300 mg PO Q6H #40 CAPSULES 11/01/22 [Rx Last Taken Unknown] hydrocodone-acetaminophen 5-325mg 5mg-325mg 1 tab PO Q4H PRN PRN Pain 2 days #10 TABLETS 11/01/22 [Rx Last Taken Unknown] Allergy/AdvReac Type Severity Reaction Status Date / Time hydrocortisone Allergy Rash Verified 11/01/22 08:12 tramadol AdvReac Nausea Verified 11/01/22 08:12 Family History Father Diabetes Hypertension CAD (coronary artery disease) Surgical History Hx of partial nephrectomy Hx of umbilical hernia repair S/P recurrent ventral herniorrhaphy Social History (Updated 09/09/22 @ 22:[address] Tyrell Michaels MD) household members: none Smoking Status: Never smoker second hand exposure: No alcohol intake: never substance use type: does not use caffeine: Yes what type of physical activity do you participate in: none frequency: does not exercise seatbelt use: always ROS ROS ED Review of Systems ROS Unobtainable: other Constitutional Constitutional ED: Reports lethargy; Denies chills, fever(s), sweats or weight loss Eyes Eyes: Denies blurry vision, change in vision or diplopia ENT ENT ED: Reports other Details: Dental pain ; Denies rhinorrhea or sore throat Cardiovascular Cardiovascular: Denies chest pain, orthopnea or racing heartbeat Respiratory/Chest Respiratory/Chest: Denies cough, dyspnea, dyspnea on exertion, orthopnea or sputum Gastrointestinal Gastrointestinal: Denies abdominal pain, diarrhea, nausea or vomiting Genitourinary Genitourinary ED: Denies dysuria, hematuria or urinary frequency Musculoskeletal Musculoskeletal: Denies arthralgias, back pain, myalgias or neck pain Integumentary Denies abscess, Abrasions or rash Neurologic Neurologic: Denies headache(s) or weakness Psychiatric Psychiatric: Denies anxiety, depression or suicidal thoughts Endocrine Endocrinology: Denies polydipsia, polyphagia or polyuria Hematologic/Lymphatic Hematologic/Lymphatic: Denies easy bleeding, easy bruising or lymphadenopathy Allergic/Immunologic Allergic/Immunologic ED: Denies mouth swelling, tongue swelling or urticaria EXAM Physical Exam Const Vital Signs: 11/01/22 08:07 Temperature 98.2 F Temperature Source Temporal Pulse Rate 80 Respiratory Rate 20 H Blood Pressure 152/100 H Blood Pressure Mean 117 Pulse Ox 100 Oxygen Delivery Method Room Air Positive well nourished and well developed General Appearance ED: well developed and NAD HEENT Reports TM's clear and moist mucous membranes HEENT Narrative: Dentition-patient has a broken and carried right upper molar #2 that is tender to palpation. There is no gingival abscess noted. He does have some faint erythema. Patient also has a broken and carried left upper second incisor tooth #10 that is broken and carried. Tenderness to palpation over this area as well. No abscess. normocephalic and atraumatic; Negative for trauma or tenderness Tympanic Membrane ED: Yes TM's clear Eyes PERRL and EOMs intact bilaterally General Eye ED: Negative for pale conjunctiva or scleral icterus Neck no lymphadenopathy, supple and no JVD General: Negative for tenderness Chest Wall inspection of chest normal and palpation of chest normal Chest: Negative for tenderness Resp normal respiratory effort and clear to auscultation bilaterally Effort and Inspection: Negative for respiratory distress or pain with movement Auscultation: Negative for rhonchi, wheezes or diminished lung sounds Cardio regular rate, regular rhythm, S1 normal heart sound, S2 normal heart sound and no murmurs Peripheral Pulses: pulses 2+ throughout GI normal to inspection, nondistended, normoactive bowel sounds, soft to palpation, non-tender, non-distended and no masses Back/Spine no CVA tenderness and no thoracic nor lumbar tenderness Extremity normal to inspection General Extremety ED: Negative for edema General Extremity: Negative for edema Neuro oriented x3, CN's II-XII intact bilaterally, no sensory deficits noted and gait normal Sensorium / Orientation: awake, alert, oriented to person, oriented to place and oriented to time Motor Exam: strength 5/5 throughout and strength abnormal Psych mental status grossly normal Skin no rashes or lesions noted and no wounds MDM MDM MDM Narrative Medical decision making narrative: Patient will be treated with clindamycin and given a prescription for a few [place] for pain. Patient to keep his dentist appointment in 5 days. Discharge Plan Triage Chief Complaint: Dental ED Provider: Dominique Ricci Dx/Rx/DC Orders Clinical Impression: Pain, dental, Dental caries Instructions: ED Dental Pain, ED Dental Cavity Prescriptions: New clindamycin HCl [Cleocin HCl] 300 mg capsule 300 mg PO Q6H Qty: 40 0RF hydrocodone-acetaminophen [hydrocodone-acetaminophen] 5-325 mg tablet 1 tab PO Q4H PRN PRN (Reason: Pain) 2 Days Qty: 10 0RF No Action bupropion HCl 150 MG tablet sustained-release 12 hr 300 mg PO DAILY sertraline 50 mg tablet 50 mg PO DAILY Label Comments: Take 1/2 tablet by mouth daily for 6 days, then increase to 1 tablet at bedtime Primary Care Provider: Jameson Sood Referrals: Jameson Sood MD [Primary Care Provider] - Activity Restrictions/Additional Instructions: Keep your schedule dental appointment Disposition Disposition: Home, Self Care
== END 2022-11-01 08:33 | disposition home or self-care (01) ==
PROVIDERS: Emergency Provider Emergency Medicine; PCP Family Medicine; Visit Provider Emergency Medicine
DX: K08.89 Other specified disorders of teeth and supporting structures (principal); K02.9 Dental caries, unspecified; S02.5XXA Fracture of tooth (traumatic), initial encounter for closed fracture; X58.XXXA Exposure to other specified factors, initial encounter; M19.90 Unspecified osteoarthritis, unspecified site; F32.A Depression, unspecified; F41.9 Anxiety disorder, unspecified; Z79.899 Other long term (current) drug therapy
CPT/HCPCS: 99282

== ENCOUNTER 2022-11-06 13:17 | Emergency (ER) | payer MEDICAID, SELFPAY ==
[2022-11-06 13:18] VITALS: BP 175/102; PULSE 68; RESP 15; TEMP 37; O2SAT 100; BMI 59.1
--- NOTE | 2022-11-06 13:56 | ED.VIS.DENTA ---
HPI History of Present Illness Chief Complaint: Dental Informant: patient Narrative Narrative: 2-day history worsening left upper dental pain with poor dentition. Hot and cold sensitivities. He was seen in the ED 5 days ago put on antibiotics for his taken 4 times a day. Was given 10 tabs of hydrocodone. Is been using ibuprofen. He had a dental appointment yesterday reported went there and the doctor was sick therefore was rescheduled for Friday. Pain persistent states they would not refill his pain medicines unless he was seen by the dentist. He returns here due to pain. No fevers. Prior similar symptoms: Yes PFSH PFSH Medical History Abdominal pain Anxiety Arthritis Depression History of kidney cancer Home Medications bupropion HCl 150 mg tablet,12 hr sustained-release 300 mg PO DAILY depression 02/03/20 [History Last Taken 03/30/20 08:00 300 mg] sertraline 50 mg tablet 50 mg PO DAILY 07/10/22 [History Last Taken Unknown] clindamycin HCl 300 mg capsule (Cleocin HCl) 300 mg PO Q6H #40 CAPSULES 11/01/22 [Rx Last Taken Unknown] hydrocodone-acetaminophen 5-325mg 5mg-325mg 1 tab PO Q4H PRN PRN Pain 2 days #10 TABLETS 11/01/22 [Rx Last Taken Unknown] hydrocodone-acetaminophen 5-325mg 5mg-325mg 1 tab PO Q6H PRN pain 3 days #10 tabs 11/06/22 [Rx Last Taken Unknown] Allergy/AdvReac Type Severity Reaction Status Date / Time hydrocortisone Allergy Rash Verified 11/06/22 13:19 tramadol AdvReac Nausea Verified 11/06/22 13:19 Family History Father Diabetes Hypertension CAD (coronary artery disease) Surgical History Hx of partial nephrectomy Hx of umbilical hernia repair S/P recurrent ventral herniorrhaphy Social History household members: none Smoking Status: Never smoker second hand exposure: No alcohol intake: never substance use type: does not use caffeine: Yes what type of physical activity do you participate in: none frequency: does not exercise seatbelt use: always ROS ROS ED Constitutional Constitutional ED: Denies chills, fever(s) or sweats Eyes Eyes: Denies change in vision ENT ENT ED: Reports other Details: Dental pain ; Denies dysphagia or sore throat Cardiovascular Cardiovascular: Denies chest pain, leg edema, palpitations or racing heartbeat Respiratory/Chest Respiratory/Chest: Denies cough, dyspnea or dyspnea on exertion Gastrointestinal Gastrointestinal: Denies abdominal pain, diarrhea, nausea or vomiting Genitourinary Genitourinary ED: Denies dysuria, hematuria or urinary frequency Musculoskeletal Musculoskeletal: Denies back pain, extremity pain or neck pain Integumentary Denies rash or wounds Neurologic Neurologic: Denies headache(s), paresthesias or weakness EXAM Physical Exam Const Vital Signs: 11/06/22 13:18 11/06/22 14:08 Temperature 98.6 F 98.4 F Temperature Source Temporal Pulse Rate 68 88 Respiratory Rate 15 16 Blood Pressure 175/102 H 134/78 H Blood Pressure Mean 126 Pulse Ox 100 98 Oxygen Delivery Method Room Air Positive well nourished and well developed General Appearance ED: well developed and NAD HEENT Reports moist mucous membranes HEENT Narrative: Dental decay of tooth #10 and 12, tender to percussion. There is no focal gum swelling. Airway patent. normocephalic and atraumatic Eyes PERRL, EOMs intact bilaterally and conjunctivae normal General Eye ED: Yes normal appearance of both eyes Neck no lymphadenopathy and supple General: Negative for tenderness Chest Wall Chest: Negative for tenderness Resp normal respiratory effort and normal air movement Effort and Inspection: symmetric chest movement; Negative for respiratory distress Cardio regular rate, regular rhythm and no murmurs Peripheral Pulses: pulses 2+ throughout GI normal to inspection, nondistended, normoactive bowel sounds and non-tender Palpation: Negative for guarding or rebound tenderness present Back/Spine no CVA tenderness and no thoracic nor lumbar tenderness Extremity normal to inspection General Extremety ED: Negative for edema or tenderness General Extremity: Negative for edema Neuro oriented x3 and no sensory deficits noted Sensorium / Orientation: awake and alert Skin no rashes or lesions noted and no wounds MDM MDM MDM Narrative Medical decision making narrative: Patient dentalgia with dental decay. Reported went to the dentist and it was rescheduled from yesterday till this coming [place]. [facility] report noted last prescription was from his last visit 5 days ago. Discussed with patient finishing his antibiotics, he will continue ibuprofen every 6 hours he will use hydrocodone as needed as 10 tabs will be sent to his pharmacy. Reports further refills will need to be through his PCP or dentist. He understands this. All questions were answered. Discharge Plan Triage Chief Complaint: Dental ED Provider: Edil Zhang Dx/Rx/DC Orders Clinical Impression: Dentalgia, Dental caries Instructions: ED Dental Pain Prescriptions: New hydrocodone-acetaminophen 5-325 mg tablet 1 tab PO Q6H PRN (Reason: pain) 3 Days Qty: 10 0RF No Action bupropion HCl 150 MG tablet sustained-release 12 hr 300 mg PO DAILY sertraline 50 mg tablet 50 mg PO DAILY Label Comments: Take 1/2 tablet by mouth daily for 6 days, then increase to 1 tablet at bedtime clindamycin HCl [Cleocin HCl] 300 mg capsule 300 mg PO Q6H Qty: 40 0RF hydrocodone-acetaminophen [hydrocodone-acetaminophen] 5-325 mg tablet 1 tab PO Q4H PRN PRN (Reason: Pain) 2 Days Qty: 10 0RF Primary Care Provider: Jameson Sood Referrals: Jameson Sood MD [Primary Care Provider] - Activity Restrictions/Additional Instructions: Follow-up with your dentist for definitive treatment finish your antibiotics. Continue ibuprofen. Use hydrocodone as needed. Refills need to be through your dentist or PCP. Disposition Disposition: Home, Self Care Discharge Date/Time: 11/06/22 14:09
[2022-11-06 14:08] VITALS: BP 134/78; PULSE 88; RESP 16; TEMP 36.9; O2SAT 98
== END 2022-11-06 14:09 | disposition home or self-care (01) ==
PROVIDERS: Emergency Provider Emergency Medicine; PCP Family Medicine; Visit Provider Emergency Medicine
DX: K02.9 Dental caries, unspecified (principal); K08.89 Other specified disorders of teeth and supporting structures
CPT/HCPCS: 99282

== ENCOUNTER 2022-12-12 11:35 | Emergency (ER) | payer MEDICAID, SELFPAY ==
[2022-12-12 11:36] VITALS: BP 165/74; PULSE 76; RESP 16; TEMP 36.2; O2SAT 97; BMI 55.3
--- NOTE | 2022-12-12 12:57 | ED.RN ---
PT BECAME ANGRY WITH WAIT FOR ROOM, YELLING AT THIS RN, STATES HE'S LEAVING TO GO SOMEWHERE ELSE.
== END 2022-12-12 12:55 | disposition left against medical advice (07) ==
LOC: ED 13:06
PROVIDERS: PCP Family Medicine
DX: M79.603 Pain in arm, unspecified (principal)

== ENCOUNTER 2022-12-13 11:23 | Emergency (ER) | payer MEDICAID, SELFPAY ==
[2022-12-13 11:25] VITALS: BP 168/103; PULSE 91; RESP 18; TEMP 36.1; O2SAT 97; BMI 55.3
--- NOTE | 2022-12-13 11:36 | RAD_ITS ---
STUDY: X-RAY - RIGHT SHOULDER REASON FOR EXAM: Male, 47 years old. Pain following injury. TECHNIQUE: 4 view(s) of the shoulder. COMPARISON: Comparison is made with prior study dated 07/05/2019. FINDINGS: Normal glenohumeral articulation. There is degenerative arthrosis of the acromioclavicular joint without inferior osseous spur formation. Normal acromion. Normal humeral head and visualized proximal humerus. The soft tissue structures are unremarkable. Normal visualized pulmonary apex. RAD/Shoulder min 2 Views IMPRESSION: Arthrosis of the right AC joint. Electronically Signed: Chencho Templeton MD at 12:15 EST ,
--- NOTE | 2022-12-13 11:37 | EX.ED.UPPERE ---
HPI History of Present Illness Chief Complaint: Upper Extremity Injury Detail of Chief Complaint: Right shoulder injury Informant: patient Narrative Narrative: Patient presents the emergency department with complaint of pain to his right shoulder. Patient states that he had an injury to it 5 days ago when he fell onto the shoulder. Prior to that he was also helping a friend when shake a vehicle up onto a trailer when his handle slipped on the arm shot backwards. Patient states that initially that is when the pain started. He was seen by his primary care physician and started on prednisone. Patient also was given a shot of Toradol which seemed to help a little bit. Patient now having to sleep in a chair because he has having too much pain to lay back. Patient is left-hand dominant. Patient has appointment with orthopedics in 3 days. PFSH [facility] Medical History Abdominal pain Anxiety Arthritis Depression History of kidney cancer Home Medications bupropion HCl 150 mg tablet,12 hr sustained-release 300 mg PO DAILY depression 02/03/20 [History Last Taken 03/30/20 08:00 300 mg] sertraline 50 mg tablet 50 mg PO DAILY 07/10/22 [History Last Taken Unknown] clindamycin HCl 300 mg capsule (Cleocin HCl) 300 mg PO Q6H #40 CAPSULES 11/01/22 [Rx Last Taken Unknown] hydrocodone-acetaminophen 5-325mg 5mg-325mg 1 tab PO Q4H PRN PRN Pain 2 days #10 TABLETS 11/01/22 [Rx Last Taken Unknown] hydrocodone-acetaminophen 5-325mg 5mg-325mg 1 tab PO Q6H PRN pain 3 days #10 tabs 11/06/22 [Rx Last Taken Unknown] Allergy/AdvReac Type Severity Reaction Status Date / Time hydrocortisone Allergy Rash Verified 12/13/22 11:24 tramadol AdvReac Nausea Verified 12/13/22 11:24 Family History Father Diabetes Hypertension CAD (coronary artery disease) Surgical History Hx of partial nephrectomy Hx of umbilical hernia repair S/P recurrent ventral herniorrhaphy Social History household members: none Smoking Status: Never smoker second hand exposure: No alcohol intake: never substance use type: does not use caffeine: Yes what type of physical activity do you participate in: none frequency: does not exercise seatbelt use: always ROS ROS ED Review of Systems ROS Unobtainable: other Constitutional Constitutional ED: Reports lethargy; Denies chills, fever(s), sweats or weight loss Eyes Eyes: Denies blurry vision, change in vision or diplopia ENT ENT ED: Denies rhinorrhea or sore throat Cardiovascular Cardiovascular: Denies chest pain, orthopnea or racing heartbeat Respiratory/Chest Respiratory/Chest: Denies cough, dyspnea, dyspnea on exertion, orthopnea or sputum Gastrointestinal Gastrointestinal: Denies abdominal pain, diarrhea, nausea or vomiting Genitourinary Genitourinary ED: Denies dysuria, hematuria or urinary frequency Musculoskeletal Musculoskeletal: Reports other Details: Right shoulder pain/injury ; Denies arthralgias, back pain, myalgias or neck pain Integumentary Denies abscess, Abrasions or rash Neurologic Neurologic: Denies headache(s) or weakness Psychiatric Psychiatric: Denies anxiety, depression or suicidal thoughts Endocrine Endocrinology: Denies polydipsia, polyphagia or polyuria Hematologic/Lymphatic Hematologic/Lymphatic: Denies easy bleeding, easy bruising or lymphadenopathy Allergic/Immunologic Allergic/Immunologic ED: Denies mouth swelling, tongue swelling or urticaria EXAM Physical Exam Const Vital Signs: 12/13/22 11:25 Temperature 97 F L Temperature Source Temporal Pulse Rate 91 Respiratory Rate 18 Blood Pressure 168/103 H Blood Pressure Mean 124 Pulse Ox 97 Oxygen Delivery Method Room Air Positive well nourished and well developed General Appearance ED: well developed and NAD HEENT Reports TM's clear and moist mucous membranes normocephalic and atraumatic; Negative for trauma or tenderness Tympanic Membrane ED: Yes TM's clear Eyes PERRL and EOMs intact bilaterally General Eye ED: Negative for pale conjunctiva or scleral icterus Neck no lymphadenopathy, supple and no JVD General: Negative for tenderness Chest Wall inspection of chest normal and palpation of chest normal Chest: Negative for tenderness Resp normal respiratory effort and clear to auscultation bilaterally Effort and Inspection: Negative for respiratory distress or pain with movement Auscultation: Negative for rhonchi, wheezes or diminished lung sounds Cardio regular rate, regular rhythm, S1 normal heart sound, S2 normal heart sound and no murmurs Peripheral Pulses: pulses 2+ throughout GI normal to inspection, nondistended, normoactive bowel sounds, soft to palpation, non-tender, non-distended and no masses Back/Spine no CVA tenderness and no thoracic nor lumbar tenderness Extremity Extremity Narrative: Patient with diffuse tenderness palpation about the glenohumeral joint. There is no obvious deformity or sulcus sign. Patient has limited range of motion with abduction secondary to pain. He has a hard time resisting abduction. Neurovascular intact distally. General Extremety ED: Negative for edema General Extremity: Negative for edema Neuro oriented x3, CN's II-XII intact bilaterally, no sensory deficits noted and gait normal Sensorium / Orientation: awake, alert, oriented to person, oriented to place and oriented to time Motor Exam: strength 5/5 throughout and strength abnormal Psych mental status grossly normal Skin no rashes or lesions noted and no wounds MDM MDM MDM Narrative Medical decision making narrative: While in the department I was approached by public health social worker who made me aware that patient does have a care plan regarding no narcotics without evidence of acute pain process. Patient apparently has had multiple visits and prescriptions for narcotics. I did discuss this with the patient. Patient will continue with naproxen or Tylenol. He will follow-up with orthopedics and keep his appointment in 3 days. He has a sling for comfort. Patient I suspect likely has a shoulder sprain with possible internal derangement and may require further imaging such as possibly MRI of symptoms persist. Patient understands this needs to be done as an outpatient. Lab Data Attestation: I reviewed the patient's lab results. Radiography Diagnostic Testin view x-rays of right shoulder obtained interpreted by myself as no acute fractures or dislocations. Radiology felt there was arthrosis otherwise nothing acute. Discharge Plan Triage Chief Complaint: Upper Extremity Injury ED Provider: Dominique Ricci Dx/Rx/DC Orders Clinical Impression: Sprain of right shoulder Instructions: ED Shoulder Sprain Prescriptions: No Action bupropion HCl 150 MG tablet sustained-release 12 hr 300 mg PO DAILY sertraline 50 mg tablet 50 mg PO DAILY Label Comments: Take 1/2 tablet by mouth daily for 6 days, then increase to 1 tablet at bedtime clindamycin HCl [Cleocin HCl] 300 mg capsule 300 mg PO Q6H Qty: 40 0RF hydrocodone-acetaminophen [hydrocodone-acetaminophen] 5-325 mg tablet 1 tab PO Q4H PRN PRN (Reason: Pain) 2 Days Qty: 10 0RF hydrocodone-acetaminophen 5-325 mg tablet 1 tab PO Q6H PRN (Reason: pain) 3 Days Qty: 10 0RF Primary Care Provider: Jameson Sood Referrals: Jameson Sood MD [Primary Care Provider] - 3-5 Days Disposition Disposition: Home, Self Care
--- NOTE | 2022-12-13 12:31 | CM.ED ---
SW updated MD Peck and ANA LAURA Ricketts that patient has a care plan and provided the care plan for the MD to review. Ebony HERNDON
[2022-12-13 12:38] VITALS: RESP 20
== END 2022-12-13 13:11 | disposition home or self-care (01) ==
PROVIDERS: Emergency Provider Emergency Medicine; PCP Family Medicine; Visit Provider Emergency Medicine
DX: S43.401A Unspecified sprain of right shoulder joint, initial encounter (principal); W19.XXXA Unspecified fall, initial encounter; Z85.528 Personal history of other malignant neoplasm of kidney
CPT/HCPCS: 73030; 99282

== ENCOUNTER 2023-01-06 11:29 | Emergency (ER) | payer MEDICAID, SELFPAY ==
[2023-01-06 11:29] VITALS: BP 134/111; PULSE 75; RESP 18; TEMP 36.2; O2SAT 97; BMI 55.0
--- NOTE | 2023-01-06 12:08 | CM.ED ---
Social Work Note Referral Source: Case Find Referral Reason: EDCP SW met with patient's RN Christine as an MD has not been assigned yet. SW provided RN with copy of patient's ED Care Plan and briefly reviewed potential obstacles and solutions for patient. RN voiced understanding. SW remains available if needs arise. Yeni Peralta MSW, RADHA
--- NOTE | 2023-01-06 12:40 | EDS_ITS ---
HPI History of Present Illness Chief Complaint: Back Informant: patient Onset/Context/Timing Onset: Days (2) Context: Sudden Onset Injury: bending Timing: Continuous Quality: Aching Location: Lumbar, Right Leg (thigh) and Left Leg (thigh) Current Severity: Severe Maximum Severity: Severe Worsened by: improves with Movement Relieved by: Remaining Still Associated Symptoms Associated Symptoms: Radiation to Right Leg and Radiation to Left Leg; Negative for Numbness, Tingling, Abdominal Pain, Dysuria, Unable to Transfer, Urinary Retention, Urinary Incontinence, Constipation or Fecal Incontinence Narrative Narrative: Patient states 2 nights ago he was trying to take a shower, he bent over to clean his left lower extremity and felt a pop in his back with sudden onset of pain, has been persistent. Significant pain to move around, had trouble getting out of bed this morning as a result. No weakness, no numbness. Pain into both thighs but not to or below the knees. No bowel or bladder dysfunction. [facility] Medical History Abdominal pain Anxiety Arthritis Depression History of kidney cancer Home Medications bupropion HCl 150 mg tablet,12 hr sustained-release 300 mg PO DAILY depression 02/03/20 [History Last Taken 03/30/20 08:00 300 mg] sertraline 50 mg tablet 50 mg PO DAILY 07/10/22 [History Last Taken Unknown] clindamycin HCl 300 mg capsule (Cleocin HCl) 300 mg PO Q6H #40 CAPSULES 11/01/22 [Rx Last Taken Unknown] hydrocodone-acetaminophen 5-325mg 5mg-325mg 1 tab PO Q4H PRN PRN Pain 2 days #10 TABLETS 11/01/22 [Rx Last Taken Unknown] hydrocodone-acetaminophen 5-325mg 5mg-325mg 1 tab PO Q6H PRN pain 3 days #10 tabs 11/06/22 [Rx Last Taken Unknown] cyclobenzaprine 10 mg tablet 10 mg PO TID PRN Muscle Spasm #20 TABLETS 01/06/23 [Rx Last Taken Unknown] hydrocodone-acetaminophen 5-325mg 5mg-325mg 1 tab PO Q4H PRN PRN Pain 2 days #10 TABLETS 01/06/23 [Rx Last Taken Unknown] Allergy/AdvReac Type Severity Reaction Status Date / Time hydrocortisone Allergy Rash Verified 01/06/23 11:32 tramadol AdvReac Nausea Verified 01/06/23 11:32 Family History Father Diabetes Hypertension CAD (coronary artery disease) Surgical History Hx of partial nephrectomy Hx of umbilical hernia repair S/P recurrent ventral herniorrhaphy Social History household members: none Smoking Status: Never smoker second hand exposure: No alcohol intake: never substance use type: does not use caffeine: Yes what type of physical activity do you participate in: none frequency: does not exercise seatbelt use: always ROS ROS ED Constitutional Constitutional ED: Denies chills or fever(s) Gastrointestinal Gastrointestinal: Denies abdominal pain, constipation, fecal incontinence, nausea or vomiting Genitourinary Genitourinary ED: Reports other Details: no urinary retention ; Denies abdominal discomfort or urinary incontinence Musculoskeletal Musculoskeletal: Reports as per HPI and back pain; Denies neck pain Integumentary Denies rash or wounds Neurologic Neurologic: Denies headache(s), paresthesias or weakness EXAM Physical Exam Const Vital Signs: 01/06/23 11:29 Temperature 97.1 F L Temperature Source Temporal Pulse Rate 75 Respiratory Rate 18 Blood Pressure 134/111 H Blood Pressure Mean 118 Pulse Ox 97 Oxygen Delivery Method Room Air Positive well nourished and well developed Constitutional Narrative: Morbid obesity General Appearance ED: well developed and NAD HEENT Negative for trauma or tenderness Eyes PERRL and EOMs intact bilaterally Neck full ROM and supple GI normal to inspection, nondistended, normoactive bowel sounds, soft to palpation and non-tender Back/Spine normal to inspection Back/Spine Narrative: Negative cross straight leg raise and ipsilateral right straight leg raise, both performed while sitting Lumbar Spine / Lower Back: ROM limited, lumbar spinal tenderness, paraspinal muscle tenderness and straight leg raise positive - left other (75-80 degrees while sitting, initiating some radicular discomfort down to the left foot ipsilaterally) Extremity normal to inspection, full ROM and no pedal edema Neuro oriented x3 and no sensory deficits noted Sensorium / Orientation: alert Motor Exam: strength 5/5 throughout and clonus absent Deep Tendon Reflexes: Rt Patellar (L4): 2+ and Lt Patellar (L4): 2+ Deep Tendon Reflexes Back: Rt Patellar (L4): 2+ and Lt Patellar (L4): 2+ Plantar Reflex: Downgoing: bilateral Psych mental status grossly normal and thought process normal Skin no rashes or lesions noted and no wounds MDM MDM MDM Narrative Medical decision making narrative: X-ray series 3 views lumbosacral spine obtained and negative for any acute on my interpretation, no sign of anterolisthesis or fracture. Radiology in agreement. Patient was treated in the meantime with intramuscular morphine, Toradol, Norflex. He is doing better on reevaluation. I think the majority of this is muscular, however he does have some radicular symptoms on left lower extremity straight leg raise, which I think deserves close outpatient follow-up. No signs or symptoms of cauda equina syndrome at this time stable for discharge home with prescriptions to help with his symptoms he is comfortable with that plan. I did review an [facility] report on this patient as I was prescribing him hydrocodone. He does have a history of frequent ED admissions for painful complaints receiving prescriptions for hydrocodone. None of them have been within the past 30 days. Radiography Diagnostic Testing: Clinical Impression(s) from Imaging Studies Lumbar Spine X-Ray 01/06/23 12:55 IMPRESSION: Degenerative changes of the spine, as detailed above. Electronically Signed: Chencho Templeton MD at 13:24 EST Reading Location ID and State: [address] [place] [address] , Service support , Discharge Plan Triage Chief Complaint: Back ED Provider: Joby Cisse Dx/Rx/DC Orders Clinical Impression: Acute low back pain with left-sided sciatica Instructions: ED Back Pain (Acute or Chronic), ED Sciatica Prescriptions: New cyclobenzaprine [cyclobenzaprine] 10 mg tablet 10 mg PO TID PRN (Reason: Muscle Spasm) Qty: 20 0RF hydrocodone-acetaminophen [hydrocodone-acetaminophen] 5-325 mg tablet 1 tab PO Q4H PRN PRN (Reason: Pain) 2 Days Qty: 10 0RF No Action bupropion HCl 150 MG tablet sustained-release 12 hr 300 mg PO DAILY sertraline 50 mg tablet 50 mg PO DAILY Label Comments: Take 1/2 tablet by mouth daily for 6 days, then increase to 1 tablet at bedtime clindamycin HCl [Cleocin HCl] 300 mg capsule 300 mg PO Q6H Qty: 40 0RF hydrocodone-acetaminophen [hydrocodone-acetaminophen] 5-325 mg tablet 1 tab PO Q4H PRN PRN (Reason: Pain) 2 Days Qty: 10 0RF hydrocodone-acetaminophen 5-325 mg tablet 1 tab PO Q6H PRN (Reason: pain) 3 Days Qty: 10 0RF Primary Care Provider: Jameson Sood Referrals: Jameson Sood MD [Primary Care Provider] - 1 Week if not improving Disposition Disposition: Home, Self Care
[2023-01-06] MEDS: Ketorolac 60 MG/2 ML Vial IM (12:47)
[2023-01-06] MEDS: Orphenadrine 60 MG/2 ML Ampul IM (12:48)
[2023-01-06] MEDS: Morphine 4 MG/ML Syringe IM (12:48)
--- NOTE | 2023-01-06 12:55 | RAD_ITS ---
STUDY: X-RAY - LUMBAR SPINE REASON FOR EXAM: Male, 47 years old. 2 day history of low back pain. TECHNIQUE: 2 view(s) of the lumbar spine were obtained. COMPARISON: Comparison is made with prior study dated 08/23/2020. FINDINGS: Normal lumbar lordosis. There is no substantial scoliosis. There is a normal alignment of the vertebrae. There is multilevel endplate spondylosis of the lumbar vertebrae. There is multi-level degenerative disc disease with multi-level disc space narrowing. The soft tissue structures are unremarkable. RAD/Lumbar Spine 2 or 3 Views IMPRESSION: Degenerative changes of the spine, as detailed above. Electronically Signed: Chencho Templeton MD at 13:24 EST ,
--- NOTE | 2023-01-06 14:15 | ED.RN ---
Dr. parekh notified pt. has rang his call mejia for pain medications several times.
== END 2023-01-06 14:18 | disposition home or self-care (01) ==
PROVIDERS: Emergency Provider Emergency Medicine; PCP Family Medicine; Visit Provider Emergency Medicine
DX: M54.42 Lumbago with sciatica, left side (principal); M79.651 Pain in right thigh; M79.652 Pain in left thigh; F32.A Depression, unspecified; F41.9 Anxiety disorder, unspecified; Z85.528 Personal history of other malignant neoplasm of kidney
CPT/HCPCS: 72100; 96372; 99282

== ENCOUNTER 2023-02-20 17:04 | Emergency (ER) | payer MEDICAID, SELFPAY ==
[2023-02-20 17:05] VITALS: BP 164/104; PULSE 86; RESP 16; TEMP 36.3; O2SAT 100; BMI 55.0
--- NOTE | 2023-02-20 18:00 | CM.ED ---
Social Work Note Referral Source: Case Find Referral Reason: Care Plan SW met with MD Santos and provided a copy of patient's care plan. MD to consult with SW to assist with resources or assist with other needs. Yeni Peralta [employer], RADHA
--- NOTE | 2023-02-20 18:03 | ED.VIS.DENTA ---
HPI History of Present Illness Chief Complaint: Dental Informant: patient Onset/Context/Timing Onset: Days (2) Context: Gradual Onset Timing: Continuous Quality: Sharp Location: Right upper premolars Worsened by: Drinking cold liquids Associated Symptoms Assocated Symptom - Dental: cold sensitivity; Negative for fever, jaw swelling, face swelling or hot sensitivity Narrative Narrative: Patient presents with right upper dental pain that has been getting worse over the past 2 days. Patient states it is gradually getting worse. Patient states a piece of his tooth broke off. Patient states it is sharp and localized to the right upper premolar area. Patient states it is worse with drinking and with anything cold. Patient denies any fevers. Patient denies any swelling of the jaw or face. Patient denies any hot sensitivity. Patient denies any sore throat. Patient denies any cough. [facility] Medical History Abdominal pain Anxiety Arthritis Depression History of kidney cancer Home Medications bupropion HCl 150 mg tablet,12 hr sustained-release 300 mg PO DAILY depression 02/03/20 [History Last Taken 03/30/20 08:00 300 mg] sertraline 50 mg tablet 50 mg PO DAILY 07/10/22 [History Last Taken Unknown] clindamycin HCl 300 mg capsule (Cleocin HCl) 300 mg PO Q6H #40 CAPSULES 11/01/22 [Rx Last Taken Unknown] hydrocodone-acetaminophen 5-325mg 5mg-325mg 1 tab PO Q4H PRN PRN Pain 2 days #10 TABLETS 11/01/22 [Rx Last Taken Unknown] hydrocodone-acetaminophen 5-325mg 5mg-325mg 1 tab PO Q6H PRN pain 3 days #10 tabs 11/06/22 [Rx Last Taken Unknown] cyclobenzaprine 10 mg tablet 10 mg PO TID PRN Muscle Spasm #20 TABLETS 01/06/23 [Rx Last Taken Unknown] hydrocodone-acetaminophen 5-325mg 5mg-325mg 1 tab PO Q4H PRN PRN Pain 2 days #10 TABLETS 01/06/23 [Rx Last Taken Unknown] naproxen 500 mg tablet 500 mg PO BID PRN #20 tabs 02/20/23 [Rx Last Taken Unknown] penicillin V potassium 500 mg tablet 500 mg PO 4X/DAY #40 tabs 02/20/23 [Rx Last Taken Unknown] Allergy/AdvReac Type Severity Reaction Status Date / Time hydrocortisone Allergy Rash Verified 02/20/23 17:08 tramadol AdvReac Nausea Verified 02/20/23 17:08 Family History Father Diabetes Hypertension CAD (coronary artery disease) Surgical History Hx of partial nephrectomy Hx of umbilical hernia repair S/P recurrent ventral herniorrhaphy Social History household members: none Smoking Status: Never smoker second hand exposure: No alcohol intake: never substance use type: does not use caffeine: Yes what type of physical activity do you participate in: none frequency: does not exercise seatbelt use: always ROS ROS ED Constitutional Constitutional ED: Denies chills or fever(s) Eyes Eyes: Denies blurry vision or change in vision ENT ENT ED: Reports ear pain right; Denies rhinorrhea or sore throat Cardiovascular Cardiovascular: Denies chest pain or palpitations Respiratory/Chest Respiratory/Chest: Denies cough or dyspnea Gastrointestinal Gastrointestinal: Denies nausea or vomiting Genitourinary Genitourinary ED: Denies dysuria or hematuria Musculoskeletal Musculoskeletal: Denies back pain or neck pain Integumentary Denies abscess or rash Neurologic Neurologic: Denies headache(s) or weakness Allergic/Immunologic Allergic/Immunologic ED: Denies mouth swelling or urticaria EXAM Physical Exam Const Vital Signs: 02/20/23 17:05 Temperature 97.4 F L Temperature Source Temporal Pulse Rate 86 Respiratory Rate 16 Blood Pressure 164/104 H Blood Pressure Mean 124 Pulse Ox 100 Oxygen Delivery Method Room Air Positive well nourished, well developed and obese General Appearance ED: well developed and NAD Nutritional Appearance: obese HEENT HEENT Narrative: There is a large dental carry over the right upper second premolar. There is some mild gingival edema around this tooth. There are other dental caries noted in the right upper and lower molars. There is no discharge or drainage. There is no fluctuance. There is no sublingual edema or tenderness. There is no evidence of Estevan's angina. Teeth and Gingiva: abnormal tooth and associated gingiva Positive for tenderness and associated gingival edema, caries and poor dentition Throat: posterior oropharynx normal Eyes PERRL and EOMs intact bilaterally Neck supple and no JVD General: Negative for anterior neck swelling, tenderness or submandibular swelling Neuro oriented x3, CN's II-XII intact bilaterally, moves all extremities, no focal motor deficits and no sensory deficits noted Sensorium / Orientation: alert Motor Exam: strength 5/5 throughout Psych mental status grossly normal MDM MDM MDM Narrative Medical decision making narrative: Patient was given a dose of Pen-Vee K and Naprosyn here. Patient was given prescriptions for the same. Patient was instructed to follow-up with his dentist as scheduled in 4 days. Patient understood and was agreeable with the plan. All questions were answered. Discharge Plan Triage Chief Complaint: Dental ED Provider: Sergio Santos Dx/Rx/DC Orders Clinical Impression: Infected dental caries, Pain, dental, Morbid obesity with BMI of 50.0-59.9, adult Instructions: ED Dental Pain, ED Dental Cavity Prescriptions: New penicillin V potassium 500 mg tablet 500 mg PO 4X/DAY Qty: 40 0RF naproxen 500 mg tablet 500 mg PO BID PRN Qty: 20 0RF No Action bupropion HCl 150 MG tablet sustained-release 12 hr 300 mg PO DAILY sertraline 50 mg tablet 50 mg PO DAILY Label Comments: Take 1/2 tablet by mouth daily for 6 days, then increase to 1 tablet at bedtime clindamycin HCl [Cleocin HCl] 300 mg capsule 300 mg PO Q6H Qty: 40 0RF hydrocodone-acetaminophen [hydrocodone-acetaminophen] 5-325 mg tablet 1 tab PO Q4H PRN PRN (Reason: Pain) 2 Days Qty: 10 0RF hydrocodone-acetaminophen 5-325 mg tablet 1 tab PO Q6H PRN (Reason: pain) 3 Days Qty: 10 0RF cyclobenzaprine [cyclobenzaprine] 10 mg tablet 10 mg PO TID PRN (Reason: Muscle Spasm) Qty: 20 0RF hydrocodone-acetaminophen [hydrocodone-acetaminophen] 5-325 mg tablet 1 tab PO Q4H PRN PRN (Reason: Pain) 2 Days Qty: 10 0RF Primary Care Provider: Jameson Sood Referrals: Jameson Sood MD [Primary Care Provider] - 1-2 Weeks Dentist,Your [STAFF PHYSICIAN] - Keep Trung appointment Disposition Disposition: Home, Self Care
[2023-02-20] MEDS: Naproxen 250 MG Tablet 500 MG PO (18:20)
[2023-02-20] MEDS: Penicillin Vk 250 MG Tablet 500 MG PO (18:20)
== END 2023-02-20 18:23 | disposition home or self-care (01) ==
PROVIDERS: Emergency Provider Emergency Medicine; PCP Family Medicine; Visit Provider Emergency Medicine
DX: K02.9 Dental caries, unspecified (principal); E66.01 Morbid (severe) obesity due to excess calories; Z68.43 Body mass index [BMI] 50.0-59.9, adult; K08.89 Other specified disorders of teeth and supporting structures; F32.A Depression, unspecified; Z85.528 Personal history of other malignant neoplasm of kidney
CPT/HCPCS: 99283

== ENCOUNTER 2023-04-09 16:42 | Emergency (ER) | payer MEDICAID, SELFPAY ==
[2023-04-09 16:43] VITALS: BP 171/111; PULSE 88; RESP 18; TEMP 36.6; O2SAT 98; BMI 55.9
--- NOTE | 2023-04-09 17:10 | EDS_ITS ---
HPI History of Present Illness Chief Complaint: Dental Informant: patient Onset/Context/Timing Onset: Days (4 days) Narrative Narrative: Patient presents secondary to right-sided dental pain. He states he had a tooth break off on Friday. Has been taking ibuprofen and Tylenol. He contacted his dentist was trying to get him in before the end of the week. He has not been able to get pain under control. He states he did use a pair of pliers to try to pull the remaining tooth out without success. [facility] Medical History Abdominal pain Anxiety Arthritis Depression History of kidney cancer Home Medications bupropion HCl 150 mg tablet,12 hr sustained-release 300 mg PO DAILY depression 02/03/20 [History Last Taken 03/30/20 08:00 300 mg] sertraline 50 mg tablet 50 mg PO DAILY 07/10/22 [History Last Taken Unknown] clindamycin HCl 300 mg capsule (Cleocin HCl) 300 mg PO Q6H #40 CAPSULES 11/01/22 [Rx Last Taken Unknown] hydrocodone-acetaminophen 5-325mg 5mg-325mg 1 tab PO Q4H PRN PRN Pain 2 days #10 TABLETS 11/01/22 [Rx Last Taken Unknown] hydrocodone-acetaminophen 5-325mg 5mg-325mg 1 tab PO Q6H PRN pain 3 days #10 tabs 11/06/22 [Rx Last Taken Unknown] cyclobenzaprine 10 mg tablet 10 mg PO TID PRN Muscle Spasm #20 TABLETS 01/06/23 [Rx Last Taken Unknown] hydrocodone-acetaminophen 5-325mg 5mg-325mg 1 tab PO Q4H PRN PRN Pain 2 days #10 TABLETS 01/06/23 [Rx Last Taken Unknown] naproxen 500 mg tablet 500 mg PO BID PRN #20 tabs 02/20/23 [Rx Last Taken Unknown] penicillin V potassium 500 mg tablet 500 mg PO 4X/DAY #40 tabs 02/20/23 [Rx Last Taken Unknown] clindamycin HCl 150 mg capsule 300 mg PO 4X/DAY #80 CAPSULES 04/09/23 [Rx Last Taken Unknown] hydrocodone-acetaminophen 5-325mg 5mg-325mg 1 tab PO BID PRN pain 3 days #6 tabs 04/09/23 [Rx Last Taken Unknown] Allergy/AdvReac Type Severity Reaction Status Date / Time hydrocortisone Allergy Rash Verified 04/09/23 16:44 tramadol AdvReac Nausea Verified 04/09/23 16:44 Family History Father Diabetes Hypertension CAD (coronary artery disease) Surgical History Hx of partial nephrectomy Hx of umbilical hernia repair S/P recurrent ventral herniorrhaphy Social History household members: none Smoking Status: Never smoker second hand exposure: No alcohol intake: never substance use type: does not use caffeine: Yes what type of physical activity do you participate in: none frequency: does not exercise seatbelt use: always ROS ROS ED Constitutional Constitutional ED: Denies chills or fever(s) Eyes Eyes: Denies discharge from eye(s) ENT ENT ED: Reports other Details: Right-sided dental pain. ; Denies discharge from eye(s) or sore throat Cardiovascular Cardiovascular: Denies chest pain or palpitations Respiratory/Chest Respiratory/Chest: Denies cough or dyspnea Gastrointestinal Gastrointestinal: Denies abdominal pain, nausea or vomiting Genitourinary Genitourinary ED: Denies dysuria Musculoskeletal Musculoskeletal: Denies back pain or extremity pain Integumentary Denies Abrasions or rash Neurologic Neurologic: Denies headache(s) or weakness Allergic/Immunologic Allergic/Immunologic ED: Denies lip swelling or urticaria EXAM Physical Exam Const Vital Signs: 04/09/23 16:43 Temperature 97.8 F Temperature Source Temporal Pulse Rate 88 Respiratory Rate 18 Blood Pressure 171/111 H Blood Pressure Mean 131 Pulse Ox 98 Oxygen Delivery Method Room Air Positive well nourished and well developed General Appearance ED: well developed HEENT Reports normocephalic and head/scalp atraumatic HEENT Narrative: No facial edema or erythema. Intraoral examination reveals multiple dental caries. He does have a broken off tooth at the right maxillary first premolar with mild surrounding gum edema. No posterior pharyngeal drainage or fullness. Patient speaks with a strong voice and is tolerating secretions well. Eyes PERRL and EOMs intact bilaterally Neck supple Chest Wall inspection of chest normal and palpation of chest normal Resp normal respiratory effort and clear to auscultation bilaterally Cardio regular rate and regular rhythm GI Palpation: soft Extremity normal to inspection Neuro oriented x3 and no sensory deficits noted Sensorium / Orientation: alert Motor Exam: strength 5/5 throughout Psych mental status grossly normal Skin no rashes or lesions noted MDM MDM MDM Narrative Medical decision making narrative: I did do an [facility] report. Patient has not had any narcotic prescriptions since December. He will continue ibuprofen and Tylenol. I will write him a total of 6 tabs of Annabella to help with pain control and he is to see his dentist this week. I will also place him on clindamycin. Discharge Plan Triage Chief Complaint: Dental ED Provider: Meghan Martínez Dx/Rx/DC Orders Clinical Impression: Odontalgia Instructions: ED Dental Pain Prescriptions: New clindamycin HCl 150 mg capsule 300 mg PO 4X/DAY Qty: 80 0RF hydrocodone-acetaminophen 5-325 mg tablet 1 tab PO BID PRN (Reason: pain) 3 Days Qty: 6 0RF No Action bupropion HCl 150 MG tablet sustained-release 12 hr 300 mg PO DAILY sertraline 50 mg tablet 50 mg PO DAILY Label Comments: Take 1/2 tablet by mouth daily for 6 days, then increase to 1 tablet at bedtime clindamycin HCl [Cleocin HCl] 300 mg capsule 300 mg PO Q6H Qty: 40 0RF hydrocodone-acetaminophen [hydrocodone-acetaminophen] 5-325 mg tablet 1 tab PO Q4H PRN PRN (Reason: Pain) 2 Days Qty: 10 0RF hydrocodone-acetaminophen 5-325 mg tablet 1 tab PO Q6H PRN (Reason: pain) 3 Days Qty: 10 0RF cyclobenzaprine [cyclobenzaprine] 10 mg tablet 10 mg PO TID PRN (Reason: Muscle Spasm) Qty: 20 0RF hydrocodone-acetaminophen [hydrocodone-acetaminophen] 5-325 mg tablet 1 tab PO Q4H PRN PRN (Reason: Pain) 2 Days Qty: 10 0RF penicillin V potassium 500 mg tablet 500 mg PO 4X/DAY Qty: 40 0RF naproxen 500 mg tablet 500 mg PO BID PRN Qty: 20 0RF Primary Care Provider: Jameson Sood Referrals: Jameson Sood MD [Primary Care Provider] - Activity Restrictions/Additional Instructions: Follow-up with your dentist as soon as possible. Disposition Disposition: Home, Self Care
[2023-04-09] MEDS: HYDROcodone Bitartrate/Apap 5/325 Tablet PO (17:24)
[2023-04-09] MEDS: Clindamycin HCl 150 MG Capsule 300 MG PO (17:24)
== END 2023-04-09 17:27 | disposition home or self-care (01) ==
LOC: ED 17:20
PROVIDERS: Emergency Provider Emergency Medicine; PCP Family Medicine; Visit Provider Emergency Medicine
DX: K08.89 Other specified disorders of teeth and supporting structures (principal); F32.A Depression, unspecified; F41.9 Anxiety disorder, unspecified; Z79.899 Other long term (current) drug therapy; Z85.528 Personal history of other malignant neoplasm of kidney
CPT/HCPCS: 99283

== ENCOUNTER 2023-05-18 15:32 | Emergency (ER) | payer MEDICAID, SELFPAY ==
[2023-05-18 15:33] VITALS: BP 182/98; PULSE 76; RESP 16; TEMP 36.9; O2SAT 98; BMI 59.2
--- NOTE | 2023-05-18 15:42 | EX.ED.UPPERE ---
HPI <EUSEBIO Alves - Last Filed: 05/18/23 16:56> History of Present Illness Chief Complaint: Upper Extremity Injury Narrative Narrative: Patient is a 47-year-old male with history of morbid obesity, chronic back pain, depression who presents to the emergency department with right shoulder pain. Patient states 2 days ago he was getting out of a truck when a rusted step broke while he was holding onto a handle on the truck pulling his right shoulder. Since this injury, patient states he has difficulty holding up his arm, he has pain to the front of his shoulder. He states he has intermittent numbness and tingling to his hand and fingers. No other injury noted. [facility] <EUSEBIO Alves - Last Filed: 05/18/23 16:56> [facility] Medical History Abdominal pain Anxiety Arthritis Depression History of kidney cancer Home Medications bupropion HCl 150 mg tablet,12 hr sustained-release 300 mg PO DAILY depression 02/03/20 [History Last Taken 03/30/20 08:00 300 mg] sertraline 50 mg tablet 50 mg PO DAILY 07/10/22 [History Last Taken Unknown] clindamycin HCl 300 mg capsule (Cleocin HCl) 300 mg PO Q6H #40 CAPSULES 11/01/22 [Rx Last Taken Unknown] hydrocodone-acetaminophen 5-325mg 5mg-325mg 1 tab PO Q4H PRN PRN Pain 2 days #10 TABLETS 11/01/22 [Rx Last Taken Unknown] hydrocodone-acetaminophen 5-325mg 5mg-325mg 1 tab PO Q6H PRN pain 3 days #10 tabs 11/06/22 [Rx Last Taken Unknown] cyclobenzaprine 10 mg tablet 10 mg PO TID PRN Muscle Spasm #20 TABLETS 01/06/23 [Rx Last Taken Unknown] hydrocodone-acetaminophen 5-325mg 5mg-325mg 1 tab PO Q4H PRN PRN Pain 2 days #10 TABLETS 01/06/23 [Rx Last Taken Unknown] naproxen 500 mg tablet 500 mg PO BID PRN #20 tabs 02/20/23 [Rx Last Taken Unknown] penicillin V potassium 500 mg tablet 500 mg PO 4X/DAY #40 tabs 04/06/23 [Rx Last Taken Unknown] clindamycin HCl 150 mg capsule 300 mg (2 x 150 mg) PO 4X/DAY #80 CAPSULES 04/09/23 [Rx Last Taken Unknown] hydrocodone-acetaminophen 5-325mg 5mg-325mg 1 tab PO BID PRN pain 3 days #6 tabs 04/09/23 [Rx Last Taken Unknown] naproxen 500 mg tablet (Naprosyn) 500 mg PO BID PRN pain #20 tabs 05/18/23 [Rx Last Taken Unknown] Allergy/AdvReac Type Severity Reaction Status Date / Time hydrocortisone Allergy Rash Verified 05/18/23 15:34 tramadol AdvReac Nausea Verified 05/18/23 15:34 Family History Father Diabetes Hypertension CAD (coronary artery disease) Surgical History Hx of partial nephrectomy Hx of umbilical hernia repair S/P recurrent ventral herniorrhaphy Social History household members: none Smoking Status: Never smoker second hand exposure: No alcohol intake: never substance use type: does not use caffeine: Yes what type of physical activity do you participate in: none frequency: does not exercise seatbelt use: always ROS <EUSEBIO Alves - Last Filed: 05/18/23 16:56> [facility] ED ROS Narrative Constitutional: Negative for fever, chills, weight loss, weakness Eyes: Negative for vision loss, vision change, double vision ENT: Negative for any sore throat, ear pain, congestion Cardiovascular: Negative for any chest pain, tightness, palpitations Respiratory: Negative for any cough, sputum production, hemoptysis, dyspnea, dyspnea on exertion, orthopnea Gastrointestinal: Negative for any abdominal pain, nausea, vomiting, diarrhea, constipation, blood in stool, blood in vomit : Negative for any urinary frequency, dysuria, retention, blood in urine Muscle skeletal: Negative for any muscle joint pain, stiffness, myalgias, arthralgias, neck pain, back pain. Positive for right shoulder pain Neurological: Negative for any headache, syncope, numbness or tingling, dizziness Skin: Negative for any rashes, lumps, itching, abrasions, lacerations Psychiatric: Negative for any depression, anxiety, stress, suicidal ideation, homicidal ideation Hematologic: Negative for any easy bruising, excessive bruising, easy bleeding Allergies: Negative for any eczema, hives, rash EXAM <EUSEBIO Alves - Last Filed: 05/18/23 16:56> Physical Exam Narrative Exam Narrative: Vital signs reviewed. Extremities: No peripheral edema, no signs of gross trauma or deformity. Patient able to move the entire right shoulder with passive range of motion. Patient is able to hold the right arm up against resistance however this does cause increased discomfort. Worsening pain on the anterior shoulder. Patient is neurovascularly intact, +2 radial pulse. No obvious deformity to the shoulder. Neuro: Cranial nerves II through XII intact, no focal neurological deficits. Skin: Clean dry and intact with no rash, purpura, petechiae, vesicles or pustules. Backs/flank: No CVA tenderness, no midline spinal tenderness, no deformity. Psych: Normal mood and affect. No SI, HI or acute psychosis. Const Vital Signs: 05/18/23 15:33 Temperature 98.4 F Temperature Source Temporal Pulse Rate 76 Respiratory Rate 16 Blood Pressure 182/98 H Blood Pressure Mean 126 Pulse Ox 98 Oxygen Delivery Method Room Air Positive well nourished, well developed and obese General Appearance ED: well developed Nutritional Appearance: obese [facility] <EUSEBIO Alves - Last Filed: 05/18/23 16:56> [facility] Treatment and Re-Evaluation Narrative: Patient appears generally well, patient appears nontoxic, vital signs are stable. Patient presents the emergency part with right shoulder pain after an injury occurred 2 days ago. Physical examination insistent with a muscle strain, has no obvious deformity. He will receive x-rays of the right shoulder, he was given a Lynndyl for pain here. All radiologic examinations were read, reviewed by the emergency department attending. From these reads, a plan of care will be put in place. X-ray showed arthritic changes however no acute process, no deformity, no osseous abnormality. Patient placed in a sling. He will be given naproxen for home. He will have a follow-up with orthopedics referral. He is instructed to ice, rest, use a sling as needed when he is up. All questions answered, patient instructed to return for any worsening pain, numbness to the hand, fever chills. Patient stable for discharge <Dr. Dominique Ricci, DO - Last Filed: 05/18/23 16:58> [facility] Narrative Medical decision making narrative: I have personally performed a face to face assessment of the patient and have reviewed the JETT Note. I performed a substantive portion of the visit including all aspects of the following. My parekh findings include: History is [patient presents with injury to his right shoulder that occurred yesterday. Patient states that he was holding onto the handle of a semi and the step gave way and he injured his right shoulder. Patient did not actually have a direct fall on his shoulder. He complains of pain with range of motion. Has been taking some ibuprofen which seems to help somewhat. He is right-hand dominant.] Exam is [HEENT-PERRLA, EOMI. Cranial nerves II through XII grossly intact. TMs clear. Mucous membranes moist. No adenopathy. Cardiovascular-regular rate and rhythm without murmur or ectopy Lungs-clear to auscultation, chest wall stable without crepitus or subcu emphysema Abdomen-normoactive bowel sounds, soft, nontender, no rebound or rigidity, no peritoneal signs. Extremities-intact ?4, normal range of motion, normal pulses, atraumatic. Right arm-patient has some diffuse tenderness about the glenohumeral joint. No sulcus sign or evidence of dislocation. He has pain with abduction of the shoulder. He is able to put his arm behind his back. He is able to abduct the arm to about 45 degrees.] Medical Decison Making [patient seen in conjunction with physician assistant manager pt. Patient was ordered 1 Lynndyl p.o. Subsequently came to light that patient has a care plan and therefore he will not receive any narcotics for home. He will be given a prescription for naproxen. Will be given a sling. X-rays of his shoulder were negative for fracture or dislocation I suspect he may have possibly a soft tissue injury such as rotator cuff injury. He will follow-up with primary care physician. He understands he may need further imaging such as MRI to evaluate if symptoms do not improve or resolve.] Other additions or changes: [None] Discharge Plan Triage Chief Complaint: Upper Extremity Injury ED Midlevel Provider: Jann Vaughan ED Provider: Dominique Ricci Dx/Rx/DC Orders Clinical Impression: Right shoulder strain Instructions: Treating?Strains and Sprains, ED Muscle Strain, Extremity Prescriptions: New naproxen [Naprosyn] 500 mg tablet 500 mg PO BID PRN (Reason: pain) Qty: 20 0RF No Action bupropion HCl 150 MG tablet sustained-release 12 hr 300 mg PO DAILY sertraline 50 mg tablet 50 mg PO DAILY Patient Comments: Take 1/2 tablet by mouth daily for 6 days, then increase to 1 tablet at bedtime clindamycin HCl [Cleocin HCl] 300 mg capsule 300 mg PO Q6H Qty: 40 0RF hydrocodone-acetaminophen [hydrocodone-acetaminophen] 5-325 mg tablet 1 tab PO Q4H PRN PRN (Reason: Pain) 2 Days Qty: 10 0RF hydrocodone-acetaminophen 5-325 mg tablet 1 tab PO Q6H PRN (Reason: pain) 3 Days Qty: 10 0RF cyclobenzaprine [cyclobenzaprine] 10 mg tablet 10 mg PO TID PRN (Reason: Muscle Spasm) Qty: 20 0RF hydrocodone-acetaminophen [hydrocodone-acetaminophen] 5-325 mg tablet 1 tab PO Q4H PRN PRN (Reason: Pain) 2 Days Qty: 10 0RF penicillin V potassium 500 mg tablet 500 mg PO 4X/DAY Qty: 40 0RF naproxen 500 mg tablet 500 mg PO BID PRN Qty: 20 0RF clindamycin HCl 150 mg capsule 300 mg PO 4X/DAY Qty: 80 0RF hydrocodone-acetaminophen 5-325 mg tablet 1 tab PO BID PRN (Reason: pain) 3 Days Qty: 6 0RF Primary Care Provider: Jameson Sood Referrals: Fantasma Dennison MD [Med Staff - Active Staff] - Jameson Sood MD [Primary Care Provider] - Activity Restrictions/Additional Instructions: Use the sling as needed. Ice. Use naproxen twice a day. Follow-up with orthopedics. Disposition Disposition: Home, Self Care
--- NOTE | 2023-05-18 15:45 | RAD_ITS ---
INDICATION: shoulder pain EXAMINATION/TECHNIQUE: X-RAY - RIGHT XR Shoulder Min 2 Views 4 VIEWS COMPARISON: 12/13/2022 FINDINGS: SOFT TISSUES: No soft tissue swelling or gas. No radiopaque foreign body. BONES/JOINTS: No acute fracture. Joint spaces anatomically aligned with mild degenerative changes at the acromioclavicular joint. No sclerotic or destructive changes observed. RAD/Shoulder min 2 Views IMPRESSION: Mild degenerative changes at the acromioclavicular joint. Electronically Signed: Oz Beltran MD at 16:41 EDT ,
[2023-05-18] MEDS: HYDROcodone Bitartrate/Apap 5/325 Tablet PO (15:46)
== END 2023-05-18 17:03 | disposition home or self-care (01) ==
PROVIDERS: Emergency Provider Emergency Medicine; PCP Family Medicine; Visit Provider Emergency Medicine
DX: S46.911A Strain of unspecified muscle, fascia and tendon at shoulder and upper arm level, right arm, initial encounter (principal); E66.01 Morbid (severe) obesity due to excess calories; M54.9 Dorsalgia, unspecified; G89.29 Other chronic pain; F32.9 Major depressive disorder, single episode, unspecified; X50.9XXA Other and unspecified overexertion or strenuous movements or postures, initial encounter
CPT/HCPCS: 73030; 99283

== ENCOUNTER 2023-06-12 05:24 | Inpatient (IN) | payer MEDICAID, SELFPAY ==
--- NOTE | 2023-06-12 05:30 | NURSING ---
Pt was medicated with 10mg of oxy ir at 0355 for c/o pain 06/26, unable to chart in MAR d/t computer downtime from [id number], charted on downtime forms and dayshift RN informed of admin time.
[2023-06-12 05:32] VITALS: BP 134/76; PULSE 68; RESP 16; TEMP 36.2; O2SAT 98; BMI 58.1
[2023-06-12 06:00] LABS: Absolute Lymphocyte Count 1.21 X10^3/uL (0.83-4.51); Absolute Neutrophil Count 5.7 X10^3/uL (2.0-7.7); Basophil# 0.02 X10^3/uL; Basophil% 0.3 % (0-1); Eosinophil# 0.16 X10^3/uL; Eosinophils% 2.1 % (0-5); Hematocrit 29.1 % (40-54); Lymphocyte # 1.21 X10^3/ul (0.83-4.51); Lymphocyte % 15.7 % (19-41); Mean Corp Hgb Conc 30.9 g/dL (32-36); Mean Corpuscular Volume 93.9 fL (80-94); Mean Platelet Vol. 9.5 fl (6.2-12.0); Monocyte# 0.54 X10^3/uL; NRBC Flagged by Analyzer 0 % (0-5); Neutrophil # 5.71 X10^3/uL (2.7-7.7); Neutrophil % 74.2 % (47-70); Platelet Count 283 K/mm3 (150-450); RBC Distribution Width CV 14.9 % (11.6-14.6); RBC Distribution Width SD 51.1 fl (35.1-43.9); White Blood Count 7.7 K/mm3 (4.4-11.0)
[2023-06-12 06:37] LABS: Anion Gap 3 (5-15); BUN 17 mg/dL (7-18); BUN/Creat Ratio 17.1 RATIO (10-20); Calcium,Total 8.4 mg/dL (8.5-10.1); Chloride 105 mmol/L (98-107); Creatinine, Serum 0.99 mg/dL (0.70-1.30); EST Glomerular Filtration Rate 85 mL/min (>60); Est Glom Filt Rate - Afr Amer 103 mL/min (>60); Estimated Creatinine Clearance 88.28 ml/min; Glucose 98 mg/dL (74-106); Magnesium 2.2 mg/dL (1.6-2.6); Potassium 4.3 mmol/L (3.5-5.1); Sodium Level 138 mmol/L (136-145)
[2023-06-12] MEDS: oxyCODONE 5 MG Tablet PO (09:05)
[2023-06-12 09:12] VITALS: BP 103/65; PULSE 68; RESP 15; TEMP 36.2; O2SAT 96
[2023-06-12] MEDS: Nystatin Powder 15gm Bottle 1 APPLIC TOPICAL ×2 (12:19→21:33)
[2023-06-12] MEDS: oxyCODONE 5 MG Tablet 10 MG PO ×3 (13:22→23:39)
--- NOTE | 2023-06-12 17:17 | NURSING ---
Spoke with Moon at Dr Cox office pt is ok to shower
[2023-06-12 19:33] VITALS: BP 144/69; PULSE 71; RESP 18; TEMP 36.8; O2SAT 95
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
[2023-06-12 20:41] VITALS: PULSE 74; O2SAT 98
[2023-06-12] MEDS: Acetaminophen 500 MG Tablet 1000 MG PO (21:51)
[2023-06-12 22:00] VITALS: PULSE 71; RESP 18; O2SAT 95
[2023-06-13 06:00] VITALS: BMI 58.6
[2023-06-13] MEDS: Acetaminophen 500 MG Tablet 1000 MG PO ×3 (07:34→20:55)
[2023-06-13] MEDS: oxyCODONE 5 MG Tablet 10 MG PO ×4 (07:34→20:55)
[2023-06-13] MEDS: Nystatin Powder 15gm Bottle 1 APPLIC TOPICAL ×2 (07:36→20:58)
[2023-06-13 07:46] VITALS: BP 126/71; PULSE 65; RESP 17; TEMP 36.6; O2SAT 96
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
[2023-06-13 16:40] VITALS: O2SAT 100
[2023-06-13 19:00] VITALS: BP 137/67; PULSE 71; RESP 16; TEMP 36.7; O2SAT 100
[2023-06-13] MEDS: Senna/Docusate Sodium 1 Tablet 2 TABLET PO (20:56)
[2023-06-14] MEDS: oxyCODONE 5 MG Tablet 10 MG PO ×5 (01:06→20:44)
[2023-06-14 07:45] VITALS: BP 119/74; PULSE 68; RESP 15; TEMP 36.1; O2SAT 98
[2023-06-14] MEDS: Nystatin Powder 15gm Bottle 1 APPLIC TOPICAL ×2 (08:22→20:42)
[2023-06-14 08:30] VITALS: O2SAT 94
[2023-06-14] MEDS: Acetaminophen 500 MG Tablet 1000 MG PO ×2 (09:16→20:43)
[2023-06-14 19:15] VITALS: BP 105/66; PULSE 72; RESP 18; TEMP 36.8; O2SAT 97
[2023-06-15] MEDS: oxyCODONE 5 MG Tablet 10 MG PO ×5 (02:26→19:57)
[2023-06-15] MEDS: Acetaminophen 500 MG Tablet 1000 MG PO ×3 (02:43→18:00)
[2023-06-15 07:23] VITALS: BP 119/61; PULSE 72; RESP 16; TEMP 36.6; O2SAT 99
[2023-06-15] MEDS: Nystatin Powder 15gm Bottle 1 APPLIC TOPICAL ×2 (10:02→20:05)
[2023-06-15] MEDS: Senna/Docusate Sodium 1 Tablet 2 TABLET PO (19:59)
[2023-06-15 20:00] VITALS: BP 124/63; PULSE 76; RESP 14; TEMP 37; O2SAT 99
[2023-06-16] MEDS: oxyCODONE 5 MG Tablet 10 MG PO ×5 (02:29→20:15)
[2023-06-16] MEDS: Acetaminophen 500 MG Tablet 1000 MG PO ×2 (03:02→11:49)
[2023-06-16] MEDS: Nystatin Powder 15gm Bottle 1 APPLIC TOPICAL ×2 (07:51→20:56)
[2023-06-16 08:04] VITALS: BP 115/78; PULSE 67; RESP 16; TEMP 36.2; O2SAT 99
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
--- NOTE | 2023-06-16 13:23 | CASEMGMT ---
Social Work IDT met with patient and mother for Team meeting. Discussed patient's progress in PT/OT/SN. Educated to [employer] insurance with NRD 06/12 and continued stay is not guaranteed with each review. Pt's goal is to return home with parents. Mother is petite and will not be able to provide physical assistance. Pt will need sleep study at DC and have new night O2. Pt is TTWB for LLE. Recommending a ramp for home entry. Mother states that is getting done. SW to coordinate DC needs. Will ReTeam weekly. Chely Kaur, GREEN PRIZE PACKER SPEECH TEACHER
[2023-06-16] MEDS: Enoxaparin 40 MG/0.4 ML Syringe SC (16:55)
[2023-06-16 19:40] VITALS: BP 114/61; PULSE 76; RESP 16; TEMP 36.5; O2SAT 97
[2023-06-17] MEDS: oxyCODONE 5 MG Tablet 10 MG PO ×5 (00:34→20:49)
[2023-06-17] MEDS: Acetaminophen 500 MG Tablet 1000 MG PO ×2 (00:35→09:54)
[2023-06-17 07:24] VITALS: BP 124/77; PULSE 67; RESP 15; TEMP 36.1; O2SAT 100
[2023-06-17] MEDS: buPROPion (XL) 150 MG TABLET.XL PO (09:55)
[2023-06-17] MEDS: Nystatin Powder 15gm Bottle 1 APPLIC TOPICAL ×2 (09:56→20:49)
[2023-06-17] MEDS: Enoxaparin 40 MG/0.4 ML Syringe SC (09:57)
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
[2023-06-17 19:27] VITALS: BP 106/63; PULSE 77; RESP 16; TEMP 36.6; O2SAT 99
[2023-06-17] MEDS: Senna/Docusate Sodium 1 Tablet 2 TABLET PO (20:51)
[2023-06-17 21:58] VITALS: PULSE 73; RESP 16; O2SAT 99
[2023-06-18] MEDS: oxyCODONE 5 MG Tablet 10 MG PO ×6 (00:53→22:34)
[2023-06-18] MEDS: Enoxaparin 40 MG/0.4 ML Syringe SC (05:21)
[2023-06-18] MEDS: Acetaminophen 500 MG Tablet 1000 MG PO ×2 (07:12→17:09)
[2023-06-18 07:14] VITALS: BP 131/89; PULSE 70; RESP 16; TEMP 36.7; O2SAT 98
[2023-06-18] MEDS: buPROPion (XL) 150 MG TABLET.XL PO (09:35)
[2023-06-18] MEDS: Nystatin Powder 15gm Bottle 1 APPLIC TOPICAL ×2 (09:36→19:43)
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
--- NOTE | 2023-06-18 15:58 | CASEMGMT ---
Social Work SW spoke with pt to update NRD 06/25. Pt requesting to complete advanced directives naming dtr and sister. SW agreed to complete once contact information is obtained. Pt will get information and notify this worker. GUNJAN VillanuevaW
[2023-06-18 19:21] VITALS: BP 101/71; PULSE 80; RESP 18; TEMP 36.8; O2SAT 99
[2023-06-18 19:39] VITALS: PULSE 75; RESP 16; O2SAT 99
[2023-06-18] MEDS: Senna/Docusate Sodium 1 Tablet 2 TABLET PO (19:42)
[2023-06-19] MEDS: oxyCODONE 5 MG Tablet 10 MG PO ×6 (02:38→23:14)
[2023-06-19] MEDS: Enoxaparin 40 MG/0.4 ML Syringe SC (06:38)
[2023-06-19] MEDS: Acetaminophen 500 MG Tablet 1000 MG PO ×2 (06:39→13:30)
[2023-06-19 07:33] VITALS: BP 124/69; PULSE 71; RESP 16; TEMP 36.4; O2SAT 100
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
[2023-06-19] MEDS: Nystatin Powder 15gm Bottle 1 APPLIC TOPICAL ×2 (10:46→22:28)
[2023-06-19] MEDS: Senna/Docusate Sodium 1 Tablet 2 TABLET PO ×2 (10:47→22:29)
[2023-06-19] MEDS: buPROPion (XL) 150 MG TABLET.XL PO (10:47)
[2023-06-19 21:30] VITALS: BP 120/60; PULSE 65; RESP 15; TEMP 36.7; O2SAT 98
[2023-06-20] MEDS: oxyCODONE 5 MG Tablet 10 MG PO ×5 (03:38→20:55)
[2023-06-20 05:48] LABS: Absolute Lymphocyte Count 1.08 X10^3/uL (0.83-4.51); Absolute Neutrophil Count 3.6 X10^3/uL (2.0-7.7); Basophil# 0.01 X10^3/uL; Basophil% 0.2 % (0-1); Eosinophil# 0.18 X10^3/uL; Eosinophils% 3.3 % (0-5); Hematocrit 32.3 % (40-54); Hemoglobin 9.6 g/dL (13.0-16.5); Lymphocyte # 1.08 X10^3/ul (0.83-4.51); Lymphocyte % 19.9 % (19-41); Mean Corp Hgb Conc 29.7 g/dL (32-36); Mean Corpuscular Hgb 27.7 pg (27.0-32.0); Mean Corpuscular Volume 93.4 fL (80-94); Mean Platelet Vol. 10.1 fl (6.2-12.0); Monocyte# 0.59 X10^3/uL; Monocyte% 10.9 % (0-10); NRBC Flagged by Analyzer 0 % (0-5); Neutrophil # 3.55 X10^3/uL (2.7-7.7); Neutrophil % 65.3 % (47-70); Platelet Count 232 K/mm3 (150-450); RBC Distribution Width CV 14.3 % (11.6-14.6); RBC Distribution Width SD 48.3 fl (35.1-43.9); Red Blood Count 3.46 M/mm3 (4.6-6.2); White Blood Count 5.4 K/mm3 (4.4-11.0)
[2023-06-20] MEDS: Acetaminophen 500 MG Tablet 1000 MG PO ×2 (06:11→19:18)
[2023-06-20] MEDS: Enoxaparin 40 MG/0.4 ML Syringe SC (06:11)
[2023-06-20 06:17] LABS: Albumin, Serum 2.8 g/dL (3.2-5.0); Anion Gap 4 (5-15); BUN 25 mg/dL (7-18); BUN/Creat Ratio 29.2 RATIO (10-20); Calcium,Total 8.6 mg/dL (8.5-10.1); Chloride 102 mmol/L (98-107); Creatinine, Serum 0.86 mg/dL (0.70-1.30); EST Glomerular Filtration Rate 101 mL/min (>60); Est Glom Filt Rate - Afr Amer 123 mL/min (>60); Estimated Creatinine Clearance 101.63 ml/min; Glucose 89 mg/dL (74-106); Potassium 4.4 mmol/L (3.5-5.1); Sodium Level 138 mmol/L (136-145)
[2023-06-20 06:25] VITALS: BMI 59.1
[2023-06-20] MEDS: DULoxetine Hcl 30 MG Capsule PO (07:45)
[2023-06-20] MEDS: buPROPion (XL) 150 MG TABLET.XL PO (07:46)
[2023-06-20 08:44] VITALS: BP 118/72; PULSE 63; RESP 16; TEMP 36.2; O2SAT 100
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
[2023-06-20] MEDS: Ondansetron ODT 4 MG Tablet PO (11:35)
[2023-06-20] MEDS: Nystatin Powder 15gm Bottle 1 APPLIC TOPICAL ×2 (11:35→20:56)
[2023-06-20 19:34] VITALS: BP 121/74; PULSE 74; RESP 16; TEMP 36.1; O2SAT 97
[2023-06-21] MEDS: oxyCODONE 5 MG Tablet 10 MG PO ×6 (00:52→21:50)
[2023-06-21] MEDS: Acetaminophen 500 MG Tablet 1000 MG PO (05:21)
[2023-06-21] MEDS: Enoxaparin 40 MG/0.4 ML Syringe SC (05:23)
[2023-06-21 07:22] VITALS: BP 131/50; PULSE 64; RESP 18; TEMP 35.6; O2SAT 98
[2023-06-21] MEDS: Nystatin Powder 15gm Bottle 1 APPLIC TOPICAL ×2 (09:24→21:52)
[2023-06-21] MEDS: Senna/Docusate Sodium 1 Tablet 2 TABLET PO ×2 (09:24→21:50)
[2023-06-21] MEDS: buPROPion (XL) 150 MG TABLET.XL PO (09:24)
[2023-06-21] MEDS: DULoxetine Hcl 30 MG Capsule PO (11:53)
[2023-06-21 19:14] VITALS: BP 121/91; PULSE 74; RESP 16; TEMP 36.3; O2SAT 96
[2023-06-22] MEDS: oxyCODONE 5 MG Tablet 10 MG PO ×6 (01:57→22:42)
[2023-06-22] MEDS: Enoxaparin 40 MG/0.4 ML Syringe SC (06:33)
[2023-06-22 08:00] VITALS: BP 127/74; PULSE 64; RESP 16; TEMP 36.2; O2SAT 97
[2023-06-22] MEDS: buPROPion (XL) 150 MG TABLET.XL PO (10:28)
[2023-06-22] MEDS: Nystatin Powder 15gm Bottle 1 APPLIC TOPICAL ×2 (10:28→20:07)
[2023-06-22] MEDS: DULoxetine Hcl 30 MG Capsule PO (12:44)
[2023-06-22] MEDS: Acetaminophen 500 MG Tablet 1000 MG PO ×2 (12:46→21:07)
[2023-06-22 19:04] VITALS: BP 134/60; PULSE 71; RESP 16; TEMP 36.3; O2SAT 96
[2023-06-22] MEDS: Senna/Docusate Sodium 1 Tablet 2 TABLET PO (20:08)
[2023-06-23] MEDS: oxyCODONE 5 MG Tablet 10 MG PO ×5 (02:39→20:39)
[2023-06-23] MEDS: Acetaminophen 500 MG Tablet 1000 MG PO ×2 (06:04→22:01)
[2023-06-23] MEDS: Enoxaparin 40 MG/0.4 ML Syringe SC (06:05)
[2023-06-23] MEDS: buPROPion (XL) 150 MG TABLET.XL PO (07:42)
[2023-06-23] MEDS: Nystatin Powder 15gm Bottle 1 APPLIC TOPICAL ×2 (07:44→22:10)
[2023-06-23 07:47] VITALS: BP 137/78; PULSE 63; RESP 16; TEMP 36.1; O2SAT 95
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
[2023-06-23] MEDS: DULoxetine Hcl 30 MG Capsule PO (11:50)
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
--- NOTE | 2023-06-23 13:36 | VDLE_ITS ---
Reason For Study: LLE PAIN RIGHT LEFT FV is compressible, spontaneous, phasic, GSV is normal. competent and demonstrates normal CFV is compressible, spontaneous, phasic, augmentation. competent and demonstrates normal Procedure augmentation. This is a venous duplex using B-mode, color FV is compressible, spontaneous, phasic, flow and spectral Doppler. competent and demonstrates normal Exam performed portable in patient room. augmentation. The exam was diagnostic. POP V is spontaneous and phasic. The study was technically difficult. T/P Trunk is spontaneous and phasic. A preliminary report was called and/or faxed Patient unable to tolerate compressions in to Dr. Sabillon. CFV, POP V, and T/P Trunk. Flow is visualized within these vessels with pulsed wave and color doppler. Acute deep vein thrombosis is noted in the PTV. It is dilated and NONCOMPRESSIBLE. Acute deep vein thrombosis is noted in the Per V. It is dilated and NONCOMPRESSIBLE. VL/Venous Duplex US, Unilateral Interpretation Summary Acute deep venous thrombosis left posterior tibial and peroneal veins Unable to compress the left tibial peroneal trunk but flow appears to be visual ized. Patent and compressible left great saphenous vein Normal flow patterns right femoral vein The examination was noted to be technically difficult Ordering Physician: Jameson Sood Referring Physician: Radhika Sabillon Performed By: Roberto Carlos Conroy RVT
--- NOTE | 2023-06-23 14:47 | CASEMGMT ---
Social Work SW completed HCPOA and LW for pt. Original and copy provided to pt. Copies placed on chart. Chely Kaur, SHIRT PRESSER COP EXAMINER
[2023-06-23 19:22] VITALS: BP 124/75; PULSE 70; RESP 18; TEMP 36.9; O2SAT 95
[2023-06-23] MEDS: APIXABAN 5 MG TABLET PO (21:55)
[2023-06-23] MEDS: Senna/Docusate Sodium 1 Tablet 2 TABLET PO (21:55)
[2023-06-23 22:00] VITALS: PULSE 76
[2023-06-24] MEDS: oxyCODONE 5 MG Tablet 10 MG PO ×6 (00:48→21:02)
[2023-06-24] MEDS: Acetaminophen 500 MG Tablet 1000 MG PO ×2 (04:42→21:02)
[2023-06-24 05:51] LABS: Absolute Lymphocyte Count 1.15 X10^3/uL (0.83-4.51); Absolute Neutrophil Count 3.8 X10^3/uL (2.0-7.7); Basophil# 0.02 X10^3/uL; Basophil% 0.4 % (0-1); Eosinophil# 0.14 X10^3/uL; Eosinophils% 2.5 % (0-5); Hematocrit 34.1 % (40-54); Hemoglobin 10.3 g/dL (13.0-16.5); Lymphocyte # 1.15 X10^3/ul (0.83-4.51); Lymphocyte % 20.4 % (19-41); Mean Corp Hgb Conc 30.2 g/dL (32-36); Mean Corpuscular Hgb 27.8 pg (27.0-32.0); Mean Corpuscular Volume 91.9 fL (80-94); Mean Platelet Vol. 9.7 fl (6.2-12.0); Monocyte# 0.48 X10^3/uL; Monocyte% 8.5 % (0-10); NRBC Flagged by Analyzer 0 % (0-5); Neutrophil # 3.83 X10^3/uL (2.7-7.7); Neutrophil % 67.7 % (47-70); Platelet Count 206 K/mm3 (150-450); RBC Distribution Width CV 14.2 % (11.6-14.6); RBC Distribution Width SD 47.9 fl (35.1-43.9); Red Blood Count 3.71 M/mm3 (4.6-6.2); White Blood Count 5.7 K/mm3 (4.4-11.0)
[2023-06-24 07:26] VITALS: BP 138/74; PULSE 64; RESP 18; TEMP 36.2; O2SAT 97
[2023-06-24 07:33] LABS: Erythrocyte Sedimentation Rate 28 mm/hr (0-20)
[2023-06-24] MEDS: buPROPion (XL) 150 MG TABLET.XL PO (08:47)
[2023-06-24] MEDS: APIXABAN 5 MG TABLET PO ×2 (08:47→21:03)
[2023-06-24] MEDS: Nystatin Powder 15gm Bottle 1 APPLIC TOPICAL ×2 (08:53→21:03)
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
[2023-06-24] MEDS: Gabapentin 100 MG Capsule 200 MG PO ×2 (12:03→16:56)
[2023-06-24] MEDS: DULoxetine Hcl 30 MG Capsule PO (12:03)
[2023-06-24 19:10] VITALS: BP 114/53; PULSE 93; RESP 14; TEMP 37; O2SAT 99
[2023-06-24 20:53] VITALS: PULSE 71; RESP 16; O2SAT 97
[2023-06-25] MEDS: oxyCODONE 5 MG Tablet 10 MG PO ×6 (01:02→22:09)
[2023-06-25] MEDS: Acetaminophen 500 MG Tablet 1000 MG PO ×2 (05:21→20:51)
[2023-06-25 08:18] VITALS: BP 138/87; PULSE 74; RESP 16; TEMP 36.6; O2SAT 98
[2023-06-25] MEDS: APIXABAN 5 MG TABLET PO ×2 (09:24→20:52)
[2023-06-25] MEDS: Gabapentin 100 MG Capsule 200 MG PO ×3 (09:24→17:35)
[2023-06-25] MEDS: buPROPion (XL) 150 MG TABLET.XL PO (09:24)
[2023-06-25] MEDS: Nystatin Powder 15gm Bottle 1 APPLIC TOPICAL ×2 (09:27→22:38)
[2023-06-25] MEDS: DULoxetine Hcl 30 MG Capsule PO (11:55)
[2023-06-25 20:45] VITALS: BP 135/64; PULSE 71; RESP 15; TEMP 36.3; O2SAT 95
[2023-06-25] MEDS: Senna/Docusate Sodium 1 Tablet 2 TABLET PO (20:51)
[2023-06-26] MEDS: oxyCODONE 5 MG Tablet 10 MG PO ×3 (02:12→10:47)
[2023-06-26] MEDS: Gabapentin 100 MG Capsule 200 MG PO ×2 (09:09→12:03)
[2023-06-26] MEDS: Nystatin Powder 15gm Bottle 1 APPLIC TOPICAL ×2 (09:10→22:50)
[2023-06-26] MEDS: buPROPion (XL) 150 MG TABLET.XL PO (09:10)
[2023-06-26] MEDS: Senna/Docusate Sodium 1 Tablet 2 TABLET PO ×2 (09:10→21:22)
[2023-06-26] MEDS: APIXABAN 5 MG TABLET PO ×2 (09:10→21:22)
[2023-06-26 10:00] VITALS: BP 137/74; PULSE 62; RESP 17; TEMP 36.7; O2SAT 97
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
[2023-06-26] MEDS: DULoxetine Hcl 30 MG Capsule PO (12:03)
--- NOTE | 2023-06-26 15:29 | CHAPLAIN ---
Type of Pastoral Visit ___ Initial Visit _x__ Follow-up Visit ___ On-call Visit ___ General Patient Visit ___ Spiritual Assessment ___ Family Conference ___ Bereavement ___ Rapid Response ___ Code Blue ___ Other (describe below) Pastoral Care Referral From _x__ Patient ___ Family ___ Nurse ___ Physician ___ Hide Measuring Machine Operator ___ Vehicle Controls Engineer ___ Other (describe below) Sacrament/Intervention _x__ Active listening ___ Anointing ___ Advent ___ Bereavement ___ Communion ___ Jessica exploration ___ ___ Life review _x__ Prayer ___ Reconciliation ___ Sacrament of Sick ___ Supportive presence ___ Wedding ___ Other (describe below) Pastoral Comments patient reports on progress and hope of going home to parents house in a few days; pt is hopeful and optimistic at this point; pt states he would like a prayer but has no particular worries or concerns
[2023-06-26] MEDS: HYDROcodone Bitartrate/Apap 5/325 Tablet PO ×2 (16:56→22:53)
[2023-06-26] MEDS: Gabapentin 300 MG Capsule PO (16:56)
[2023-06-26 21:15] VITALS: BP 123/63; PULSE 80; RESP 16; TEMP 36.4; O2SAT 98
[2023-06-27] MEDS: HYDROcodone Bitartrate/Apap 5/325 Tablet PO ×4 (05:36→23:50)
[2023-06-27 05:48] VITALS: BMI 58.6
[2023-06-27] MEDS: Senna/Docusate Sodium 1 Tablet 2 TABLET PO ×2 (09:05→21:11)
[2023-06-27] MEDS: buPROPion (XL) 150 MG TABLET.XL PO (09:05)
[2023-06-27] MEDS: Gabapentin 300 MG Capsule PO ×3 (09:05→17:47)
[2023-06-27] MEDS: APIXABAN 5 MG TABLET PO ×2 (09:06→21:11)
[2023-06-27] MEDS: Nystatin Powder 15gm Bottle 1 APPLIC TOPICAL ×2 (09:07→21:11)
[2023-06-27 10:00] VITALS: BP 128/77; PULSE 64; RESP 16; TEMP 36.2; O2SAT 100
[2023-06-27] MEDS: DULoxetine Hcl 30 MG Capsule PO (11:38)
[2023-06-27 19:51] VITALS: BP 132/66; PULSE 67; RESP 15; TEMP 36.5; O2SAT 96
[2023-06-27 21:14] VITALS: RESP 18; O2SAT 95
[2023-06-28] MEDS: HYDROcodone Bitartrate/Apap 5/325 Tablet PO ×3 (07:04→19:09)
[2023-06-28] MEDS: Gabapentin 300 MG Capsule PO ×3 (08:03→17:16)
[2023-06-28] MEDS: Nystatin Powder 15gm Bottle 1 APPLIC TOPICAL ×2 (08:03→22:34)
[2023-06-28] MEDS: APIXABAN 5 MG TABLET PO ×2 (08:03→22:35)
[2023-06-28] MEDS: buPROPion (XL) 150 MG TABLET.XL PO (08:04)
[2023-06-28] MEDS: Senna/Docusate Sodium 1 Tablet 2 TABLET PO ×2 (08:04→22:35)
[2023-06-28 08:23] VITALS: BP 125/84; PULSE 62; RESP 16; TEMP 36.2; O2SAT 94
[2023-06-28] MEDS: DULoxetine Hcl 30 MG Capsule PO (12:47)
[2023-06-28 19:47] VITALS: BP 132/93; PULSE 91; RESP 18; TEMP 36.8; O2SAT 96
[2023-06-28 20:43] VITALS: RESP 16; O2SAT 96
[2023-06-29] MEDS: HYDROcodone Bitartrate/Apap 5/325 Tablet PO ×4 (02:23→21:11)
[2023-06-29 06:21] LABS: Hematocrit 36.8 % (40-54); Hemoglobin 11.1 g/dL (13.0-16.5); Mean Corp Hgb Conc 30.2 g/dL (32-36); Mean Corpuscular Hgb 27.6 pg (27.0-32.0); Mean Corpuscular Volume 91.5 fL (80-94); Mean Platelet Vol. 9.7 fl (6.2-12.0); Platelet Count 187 K/mm3 (150-450); RBC Distribution Width SD 47.3 fl (35.1-43.9); Red Blood Count 4.02 M/mm3 (4.6-6.2); White Blood Count 6.6 K/mm3 (4.4-11.0)
[2023-06-29 06:50] LABS: Anion Gap 6 (5-15); BUN 32 mg/dL (7-18); BUN/Creat Ratio 34.3 RATIO (10-20); Calcium,Total 8.5 mg/dL (8.5-10.1); Chloride 106 mmol/L (98-107); Creatinine, Serum 0.93 mg/dL (0.70-1.30); EST Glomerular Filtration Rate 92 mL/min (>60); Est Glom Filt Rate - Afr Amer 111 mL/min (>60); Estimated Creatinine Clearance 93.98 ml/min; Glucose 92 mg/dL (74-106); Potassium 4.3 mmol/L (3.5-5.1); Sodium Level 141 mmol/L (136-145)
[2023-06-29] MEDS: Nystatin Powder 15gm Bottle 1 APPLIC TOPICAL ×2 (07:46→21:18)
[2023-06-29] MEDS: Gabapentin 300 MG Capsule PO ×3 (07:46→16:34)
[2023-06-29] MEDS: APIXABAN 5 MG TABLET PO ×2 (07:46→21:18)
[2023-06-29] MEDS: buPROPion (XL) 150 MG TABLET.XL PO (07:47)
[2023-06-29 08:06] VITALS: BP 128/74; PULSE 66; RESP 16; TEMP 36.4; O2SAT 97
[2023-06-29] MEDS: DULoxetine Hcl 30 MG Capsule PO (12:24)
[2023-06-29 19:34] VITALS: BP 116/66; PULSE 74; RESP 18; TEMP 36.6; O2SAT 98
[2023-06-29 22:00] VITALS: PULSE 72; RESP 16; O2SAT 96
[2023-06-29 22:20] VITALS: PULSE 68; O2SAT 99
[2023-06-30] MEDS: HYDROcodone Bitartrate/Apap 5/325 Tablet PO ×4 (03:12→20:14)
[2023-06-30 05:45] LABS: Hematocrit 37.7 % (40-54); Hemoglobin 11.3 g/dL (13.0-16.5); Mean Corpuscular Hgb 27.5 pg (27.0-32.0); Mean Corpuscular Volume 91.7 fL (80-94); Mean Platelet Vol. 10.2 fl (6.2-12.0); Platelet Count 185 K/mm3 (150-450); RBC Distribution Width SD 47.8 fl (35.1-43.9); Red Blood Count 4.11 M/mm3 (4.6-6.2); White Blood Count 6.4 K/mm3 (4.4-11.0)
[2023-06-30 07:27] VITALS: BP 137/80; PULSE 69; RESP 18; TEMP 36.2; O2SAT 100
[2023-06-30] MEDS: APIXABAN 5 MG TABLET PO ×2 (08:37→20:15)
[2023-06-30] MEDS: Gabapentin 300 MG Capsule PO ×3 (08:37→17:04)
[2023-06-30] MEDS: buPROPion (XL) 150 MG TABLET.XL PO (08:37)
[2023-06-30] MEDS: Nystatin Powder 15gm Bottle 1 APPLIC TOPICAL ×2 (08:45→20:21)
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
[2023-06-30 10:00] VITALS: PULSE 68; RESP 14; O2SAT 97
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
[2023-06-30] MEDS: DULoxetine Hcl 30 MG Capsule PO (12:37)
--- NOTE | 2023-06-30 14:35 | CASEMGMT ---
Addendum entered by Sahra Smith 06/30/23 14:43: Social Work SW received a call back that they have everything they need for pt to get his home O2, will call pt to arrange delivery of the concentrator. SW let pt know. Pt states he had to pay for the walker, and the bedside commode delivered was the wrong size. SW called [employer], they will deliver the correct bedside commode, and they need documentation stating pt needs 2 assistive devices due to the wheelchair not being able to fit in certain parts of the home. SW spoke w/pt, wrote the note below, and faxed it to [facility]. No further needs, [employer] to reimburse pt for the walker, deliver the correct bedside commode, and pt's O2. ELISABET Oliveira Original Note: Social Work SW spoke w/[employer], pt qualified for a walker and a wheelchair if there are parts of his home that cannot be reached by the wheelchair. SW spoke w/pt. Pt states that he cannot get through the front door with the wheelchair, the door is too narrow. Pt also cannot get into the bathroom with the wheelchair. Pt has parts of his home he cannot access by wheelchair, and will need a walker to gain access to these parts of his home. ELISABET Oliveira
[2023-06-30 18:16] VITALS: BP 137/80; PULSE 69; RESP 18; TEMP 36.2; O2SAT 96
--- NOTE | 2023-06-30 18:18 | NURSING ---
Patient given dc instructions and verbalized understanding. Patient will be dc'd to sleep lab with his mother accompanying him at 8p.
[2023-06-30 18:58] VITALS: BP 121/56; PULSE 66; RESP 12; TEMP 36.5; O2SAT 100
[2023-06-30 19:35] VITALS: PULSE 65; RESP 14; O2SAT 100
[2023-06-30] MEDS: Senna/Docusate Sodium 1 Tablet 2 TABLET PO (20:15)
== END 2023-06-30 20:24 | disposition home or self-care (01) | DRG 862 ==
PROVIDERS: Admitting Provider Internal Medicine; PCP Family Medicine; Referring Provider Internal Medicine; Visit Provider Internal Medicine
DX: S72.352D Displaced comminuted fracture of shaft of left femur, subsequent encounter for closed fracture with routine healing (principal); Z68.43 Body mass index [BMI] 50.0-59.9, adult; E66.01 Morbid (severe) obesity due to excess calories; I10 Essential (primary) hypertension; F32.A Depression, unspecified; M15.9 Polyosteoarthritis, unspecified; G47.33 Obstructive sleep apnea (adult) (pediatric); F41.9 Anxiety disorder, unspecified; B35.4 Tinea corporis; S82.042D Displaced comminuted fracture of left patella, subsequent encounter for closed fracture with routine healing; S40.012D Contusion of left shoulder, subsequent encounter; Z79.01 Long term (current) use of anticoagulants; V99.XXXD Unspecified transport accident, subsequent encounter; S81.802D Unspecified open wound, left lower leg, subsequent encounter
CPT/HCPCS: 36415; 80048; 82040; 83735; 84100; 85025; 85027; 85652; 86140; 93971; 94668; 94762; 97110; 97140; 97162; 97166; 97530; 97535; 97542; 97802; 97803

== ENCOUNTER → 2023-06-30 | Outpatient (CLI) | payer MEDICAID, SELFPAY | END | disposition home or self-care (01) | LOC: SL 20:54 | PROVIDERS: PCP Family Medicine; Visit Provider Internal Medicine | DX: G47.33 Obstructive sleep apnea (adult) (pediatric) (principal); G47.23 Circadian rhythm sleep disorder, irregular sleep wake type | CPT/HCPCS: 95810 ==

== ENCOUNTER 2023-07-23 11:30 | Outpatient (RCR) | payer MEDICAID, SELFPAY ==
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
== END 2023-07-23 19:00 | disposition home or self-care (01) ==
LOC: PT 11:30
PROVIDERS: PCP Family Medicine; Referring Provider Internal Medicine; Visit Provider Internal Medicine
DX: T14.8XXD Other injury of unspecified body region, subsequent encounter (principal); R53.81 Other malaise
CPT/HCPCS: 97110; 97161

== ENCOUNTER → 2023-08-13 | Outpatient (CLI) | payer MEDICAID, SELFPAY ==
[2023-08-13 18:34] LABS: Amphetamine Urine VISTA NEGATIVE (<1000 ng/mL); Barbiturate Urine VISTA NEGATIVE (< 200 ng/mL); Benzodiazepine Urine VISTA NEGATIVE (< 200 ng/mL); Cocaine Urine VISTA NEGATIVE (< 300 ng/mL); Ecstacy Urine VISTA POSITIVE (< 500 ng/mL); Methadone Urine VISTA NEGATIVE (< 300 ng/mL); PCP Urine VISTA NEGATIVE (< 25 ng/mL); THC Urine VISTA NEGATIVE (< 50 ng/mL); Vista UDS pH Range 5
== END | disposition home or self-care (01) ==
LOC: LAB 15:57
PROVIDERS: PCP Family Medicine; Referring Provider Anesthesiology Pain Medicine; Visit Provider Anesthesiology Pain Medicine
DX: F11.20 Opioid dependence, uncomplicated (principal)
CPT/HCPCS: 80307

== ENCOUNTER → 2024-04-27 | Outpatient (CLI) | payer MEDICAID, SELFPAY ==
[2024-04-27 11:09] LABS: Amphetamine Urine NEGATIVE (<1000 ng/mL); Barbiturate Urine NEGATIVE (< 200 ng/mL); Benzodiazepine Urine NEGATIVE (< 200 ng/mL); Cocaine Urine NEGATIVE (< 300 ng/mL); Ecstacy Urine NEGATIVE (< 500 ng/mL); Methadone Urine NEGATIVE (< 300 ng/mL); Opiates Urine POSITIVE (< 300 ng/mL); PCP Urine NEGATIVE (< 25 ng/mL); THC Urine NEGATIVE (< 50 ng/mL); Vista UDS pH Range 5
== END | disposition home or self-care (01) ==
LOC: LAB 09:04
PROVIDERS: PCP Family Medicine; Referring Provider Anesthesiology Pain Medicine; Visit Provider Anesthesiology Pain Medicine
DX: F11.20 Opioid dependence, uncomplicated (principal)
CPT/HCPCS: 80307

== ENCOUNTER 2024-10-07 10:30 | Outpatient (RCR) | payer MEDICAID, SELFPAY ==
[2024-09-23 10:31] VITALS: BP 167/96; PULSE 74; RESP 18; TEMP 36.6; BMI 55.5
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
--- NOTE | 2024-09-27 09:14 | WC ---
PHOTO 09/23/24 LEFT POST LE CLUSTER
--- NOTE | 2024-09-27 09:15 | WC ---
PHOTO 09/23/24 RIGHT KOENIG
--- NOTE | 2024-09-27 09:17 | WC ---
PHOTO 09/23/24 RIGHT POST LE
[2024-09-30 10:54] VITALS: RESP 18; BMI 55.5
--- NOTE | 2024-09-30 12:09 | PCM.WC.PN ---
History of Present Illness Date of Service: 09/30/24 Chief Complaint: Bilateral leg ulcers History of Wound: Mr. Roque is a 49-year-old who was referred to the wound center by his pain management due to bilateral leg ulcers. He states that it has been present for months. Status post revision surgery in April and since then, has had lower extremity edema with subsequent blistering. He states that he has done nothing to these areas of openings. Denies a history of diabetes mellitus, currently at a BMI 55.5. Denies tobacco use. Largely sedentary. He states that he feels well. Progress of Wound: No new concerns reported at this time. Bilateral lower extremity ulcers and edema improved. Tolerating compression. Objective Data Objective Data Vital Signs: Vital Signs Temp Pulse Resp BP O2 Del Method 97.9 F 74 18 167/96 H Room Air 09/23/24 10:31 09/23/24 10:31 09/30/24 10:54 09/23/24 10:31 09/30/24 10:54 Oxygen Delivery Method Room Air Weight: 365 lb Body Mass Index (BMI) 55.5 Lab / Micro Data Micro: Microbiology 09/23/24 11:05 Wound - Leg, Right Gram Stain - Final 09/23/24 11:05 Wound - Leg, Right Wound Culture - Final Staphylococcus aureus 09/23/24 11:05 Wound - Leg, Right Anaerobic Culture - Final No anaerobic bacteria isolated. Charges/Coding Procedures Integumentary 111xxx-113xx: [id number] Lala subq tissue 20 sq cm/< Physical Exam Const alert and oriented x3 General Appearance: cooperative, comfortable and well kempt HEENT normocephalic, head/scalp atraumatic and hearing grossly normal bilaterally Eyes EOMs intact bilaterally General Eye: normal appearance of both eyes Neck full ROM and supple General: normal visual inspection Resp normal respiratory effort Effort and Inspection: able to speak in complete sentences Extremity General Extremity: edema Skin Wounds: wounds noted size Size: See clinical note, bed granulating well, margins well approximated, no odor and open Neuro oriented x3, CN's II-XII intact bilaterally and moves all extremities Psych mental status grossly normal, thought process normal, cooperative, affect normal and speech normal Debridement Note Debridement Note Wound debrided: Right hemphill Type of Debridement: Excisional debridement Anesthesia Used: 5% Lidocaine Gel Depth: Down to and including healthy tissue and in the subcutaneous layer Percentage of wound debrided: 100 Instrument Used: 5mm curette Tissue Removed: Slough and devitalized tissue Severity: Fat Layer Exposed Amount of bleeding with debridement: Mild Bleeding Controlled with: Pressure Patient tolerated procedure: Patient tolerated procedure well Post-Debridement Measurements and Additional Note: Post-Debridement Measurements/Treatment - Nurse 1 - General Ulcer Assessment Start: 09/23/24 10:31 Freq: Status: Active Protocol: STEFFANIE Activity Type Activity Date Activity User E-sign Co-sign Detail Recorded Client Recorded Date Recorded By Document 09/23/24 10:31 KW [id number] 09/23/24 10:43 KW Document 09/30/24 10:54 MT [id number] 09/30/24 11:03 MT 09/23/24 09/30/24 10:31 10:54 - Today's Visit Information Type of service Initial Visit Follow-up Visit (Physician/OPERATOR AND [employer]IVER ) Arrival Mode Wheelchair Wheelchair Patient Identification Verified (Name & Yes Yes ) Height and Weight Height 5 ft 8 in Weight 365 lb Weight in Pounds 365.0 lbs Weight Measurement Method Estimated by Patient Body Mass Index (BMI) 55.5 55.5 BMI Classification Obese Obese BSA - Mary 2.64 Vital Signs Temperature (97.8 F-99.1 F) 97.9 F Temperature Source Temporal Pulse Rate (60-100) 74 Pulse Location Monitor Respiratory Rate (12-18) 18 18 Respiratory rate source Observation Observation Oxygen Delivery Method Room Air Room Air Blood Pressure (90/60-120/80) 167/96 H Blood Pressure Mean (mm Hg) 119 Source Monitor Position Sitting Blood Pressure Location Right Forearm History Since Last Visit- (Skip if this is Patient's initial visit) Have you changed medications since your No last visit? Any new allergies or adverse reactions No Had a fall/change in ADL's that may No increase risk of falls Signs or symptoms of abuse and/or No neglect since last visit Have you been in the hospital since your Yes last visit? Has dressing in place as prescribed Yes Has compression in place as prescribed Yes Has offloadiing in place as prescribed N/A Experienced any changes in pain level or No management Left Footwear No Footwear Regular Shoe Right Footwear No Footwear Regular Shoe Pain Scale: 0-10 Numeric Is Patient Pain Free? Yes Yes - Nurse 1 - General Ulcer Measurement Start: 09/23/24 10:31 Freq: Status: Active Protocol: Activity Type Activity Date Activity User E-sign Co-sign Detail Recorded Client Recorded Date Recorded By Document 09/23/24 10:31 KW [id number] 09/23/24 10:43 KW Document 09/30/24 10:54 MT [id number] 09/30/24 11:03 MT 09/23/24 09/30/24 10:31 10:54 Wound Center Nurse 1 #4 LEFT POSTERIOR CLUSTER INFERIOR -Current Size (cm) - Length 8 -Current Size (cm) - Width 3 -Current Size (cm) - Depth 0.2 -Total Square Cm 24 -Exudate Amt Small -Exudate Type Serosanguineous -Wound Margin Distinct, Outline Attached -Granulation Amt Large (67-100%) -Granulation Quality Red -Texture (Lili-wound Skin Appearance) Assessed -Moisture (Lili-wound Skin Appearance) Assessed -Color (Lili-wound Skin Appearance) Assessed -Temperature (Lili-wound Skin No Abnormality Appearance) (Pt Warm) -Tenderness on Palpation (Lili-wound No Skin Appearance) -Ulcer Cleansing Soap and Water -Anesthetic Used 5% Lidocaine Gel #3 LT POST LE CLUSTER SUPERIOR -Current Size (cm) - Length 19.5 0.1 -Current Size (cm) - Width 4 0.1 -Current Size (cm) - Depth 0.1 0.1 -Total Square Cm 78.0 0.01 -Date of Last Picture (Recall this 09/23/24 field) -Exudate Amt Small None Present -Exudate Type Serosanguineous -Wound Margin Distinct, Outline Attached -Granulation Amt Small (1-33%) -Granulation Quality Red -Necrosis Amt Large (67-100%) -Necrotic Tissue Type Adherent Slough -Texture (Lili-wound Skin Appearance) Assessed, Assessed Localized Edema -Moisture (Lili-wound Skin Appearance) Assessed Assessed -Color (Lili-wound Skin Appearance) Assessed, Assessed Erythema -Temperature (Lili-wound Skin No Abnormality No Abnormality Appearance) (Pt Warm) (Pt Warm) -Tenderness on Palpation (Lili-wound No No Skin Appearance) -Ulcer Cleansing Soap and Water Soap and Water -Foul Odor after Cleansing No No -Anesthetic Used 5% Lidocaine Gel #2 RT POST LE -Current Size (cm) - Length 1 0.1 -Current Size (cm) - Width 1.2 0.1 -Current Size (cm) - Depth 0.1 0.1 -Total Square Cm 1.2 0.01 -Date of Last Picture (Recall this 09/23/24 field) -Exudate Amt Medium Small -Exudate Type Serosanguineous Serosanguineous -Wound Margin Distinct, Distinct, Outline Outline Attached Attached -Granulation Amt Small (1-33%) Large (67-100%) -Granulation Quality [place] Red -Necrosis Amt Large (67-100%) -Necrotic Tissue Type Adherent Slough -Texture (Lili-wound Skin Appearance) Assessed, Assessed Localized Edema -Moisture (Lili-wound Skin Appearance) Assessed Assessed -Color (Lili-wound Skin Appearance) Assessed, Assessed Erythema -Temperature (Lili-wound Skin No Abnormality No Abnormality Appearance) (Pt Warm) (Pt Warm) -Tenderness on Palpation (Lili-wound No No Skin Appearance) -Ulcer Cleansing Soap and Water Soap and Water -Foul Odor after Cleansing No No -Anesthetic Used 5% Lidocaine 5% Lidocaine Gel Gel #1 Rt HEMPHILL -Current Size (cm) - Length 2.4 1.7 -Current Size (cm) - Width 1.5 2 -Current Size (cm) - Depth 0.1 0.1 -Total Square Cm 3.60 3.4 -Date of Last Picture (Recall this 09/23/24 field) -Exudate Amt Large Small -Exudate Type Serosanguineous Serosanguineous -Wound Margin Distinct, Distinct, Outline Outline Attached Attached -Granulation Amt Small (1-33%) Large (67-100%) -Granulation Quality Red Red -Necrosis Amt Large (67-100%) -Necrotic Tissue Type Adherent Slough -Texture (Lili-wound Skin Appearance) Assessed, Assessed Localized Edema -Moisture (Lili-wound Skin Appearance) Assessed Assessed -Color (Lili-wound Skin Appearance) Assessed, Assessed Erythema -Temperature (Lili-wound Skin No Abnormality No Abnormality Appearance) (Pt Warm) (Pt Warm) -Tenderness on Palpation (Lili-wound No Skin Appearance) -Ulcer Cleansing Soap and Water Soap and Water -Foul Odor after Cleansing No No -Anesthetic Used 5% Lidocaine 5% Lidocaine Gel Gel Right Calf (cm) 49 Right Ankle (cm) 27.7 Left Calf (cm) 51.5 Left Ankle (cm) 27.7 - Nurse 2 - General Ulcer CM Notes Start: 09/23/24 10:31 Freq: Status: Active Protocol: Activity Type Activity Date Activity User E-sign Co-sign Detail Recorded Client Recorded Date Recorded By Document 09/23/24 10:54 [id number] 09/23/24 11:13 Document 09/30/24 11:17 [id number] 09/30/24 11:33 09/23/24 09/30/24 10:54 11:17 Wound Center Nurse 2 #4 LEFT POSTERIOR CLUSTER INFERIOR -Time 11:09 11:20 -Correct Patient Yes Yes -Correct Side, Site, Position Yes Yes -Correct Procedure Yes Yes -Procedure Performed Yes Yes -Type of Procedure Debridement Debridement -Clinical Debridement Subcutaneous Subcutaneous -Tissue Removed Subcutaneous Subcutaneous -Post Debridement (cm) - Length 8.5 7.6 -Post Debridement (cm) - Width 4.0 2.0 -Post Debridement (cm) - Depth 0.1 10.1 -Total Square (Post) (cm) 34.00 15.20 -Area of Debridement (cm) - Length 8.5 7.6 -Area of Debridement (cm) - Width 4.0 2.0 -Total Square (Area) (cm) 34.00 15.20 -Tunneling No No -Undermining/Tunneling No No -Circular Undermining No No -Wound/Ulcer Outcome Not Healed Not Healed -Ulcer Cleansing Rinsed/ Rinsed/ Irrigated with Irrigated with Saline Saline -Foul Odor after Cleansing No No -Bioengineered Tissue No No -Bleeding Controlled with Pressure Pressure -Treatment Response Procedure Procedure Tolerated Well Tolerated Well -Debridement - Subq, 1st 20sq cm Yes Yes -Debridement, SubQ, ea addt'l 20sq cm 1 or part thereof #3 LT POST LE CLUSTER SUPERIOR -Time 10:54 11:19 -Correct Patient Yes Yes -Correct Side, Site, Position Yes Yes -Correct Procedure Yes Yes -Procedure Performed Yes Yes -Type of Procedure Debridement Debridement -Clinical Debridement Subcutaneous Subcutaneous -Tissue Removed Subcutaneous Subcutaneous -Post Debridement (cm) - Length 3.0 1.1 -Post Debridement (cm) - Width 0.6 0.5 -Post Debridement (cm) - Depth 0.1 0.1 -Total Square (Post) (cm) 1.80 0.55 -Area of Debridement (cm) - Length 3.0 1.1 -Area of Debridement (cm) - Width 0.6 0.5 -Total Square (Area) (cm) 1.80 0.55 -Tunneling No No -Undermining/Tunneling No No -Circular Undermining No -Wound/Ulcer Outcome Not Healed Not Healed -Ulcer Cleansing Rinsed/ Rinsed/ Irrigated with Irrigated with Saline Saline -Foul Odor after Cleansing No No -Bioengineered Tissue No No -Bleeding Controlled with Pressure Pressure -Treatment Response Procedure Procedure Tolerated Well Tolerated Well -Debridement - Subq, 1st 20sq cm No No #2 RT POST LE -Time 10:54 11:17 -Correct Patient Yes Yes -Correct Side, Site, Position Yes Yes -Correct Procedure Yes Yes -Procedure Performed Yes Yes -Type of Procedure Debridement Debridement -Clinical Debridement Subcutaneous Subcutaneous -Tissue Removed Subcutaneous Subcutaneous -Post Debridement (cm) - Length 0.9 1.0 -Post Debridement (cm) - Width 1.0 0.5 -Post Debridement (cm) - Depth 0.1 0.1 -Total Square (Post) (cm) 0.90 0.50 -Area of Debridement (cm) - Length 0.9 1.0 -Area of Debridement (cm) - Width 1.0 0.5 -Total Square (Area) (cm) 0.90 0.50 -Tunneling No No -Undermining/Tunneling No -Circular Undermining No No -Wound/Ulcer Outcome Not Healed Not Healed -Ulcer Cleansing Rinsed/ Rinsed/ Irrigated with Irrigated with Saline Saline -Foul Odor after Cleansing No No -Bioengineered Tissue No No -Bleeding Controlled with Pressure Pressure -Treatment Response Procedure Procedure Tolerated Well Tolerated Well -Debridement - Subq, 1st 20sq cm No No #1 Rt HEMPHILL -Time 10:54 11:18 -Correct Patient Yes Yes -Correct Side, Site, Position Yes Yes -Correct Procedure Yes Yes -Procedure Performed Yes Yes -Type of Procedure Debridement Debridement -Clinical Debridement Subcutaneous Subcutaneous -Tissue Removed Subcutaneous Subcutaneous -Post Debridement (cm) - Length 2.0 1.4 -Post Debridement (cm) - Width 2.0 1.5 -Post Debridement (cm) - Depth 0.1 0.1 -Total Square (Post) (cm) 4.00 2.10 -Area of Debridement (cm) - Length 2.0 1.4 -Area of Debridement (cm) - Width 2.0 1.5 -Total Square (Area) (cm) 4.00 2.10 -Tunneling No No -Undermining/Tunneling No No -Circular Undermining No No -Wound/Ulcer Outcome Not Healed Not Healed -Ulcer Cleansing Rinsed/ Rinsed/ Irrigated with Irrigated with Saline Saline -Foul Odor after Cleansing No No -Bioengineered Tissue No No -Bleeding Controlled with Pressure Pressure -Treatment Response Procedure Procedure Tolerated Well Tolerated Well -Debridement - Subq, 1st 20sq cm No No Pain Scale: 0-10 Numeric Is Patient Pain Free? Yes Yes - Nurse 3 - General Ulcer D/C NN Start: 09/23/24 10:31 Freq: Status: Active Protocol: Activity Type Activity Date Activity User E-sign Co-sign Detail Recorded Client Recorded Date Recorded By Document 09/23/24 11:21 KW [id number] 09/23/24 11:22 KW Document 09/30/24 11:39 [id number] 09/30/24 11:40 KW 09/23/24 09/30/24 11:21 11:39 Wound Care Center Nurse 3 #4 LEFT POSTERIOR CLUSTER INFERIOR -Primary Dressing Applied Promogran Promogran -Primary Dressing Covered/Secured with Dry Gauze, Dry Gauze & Secured with Roll Gauze, Tape Secured with Tape -Promogran 1 1 #3 LT POST LE CLUSTER SUPERIOR -Other Dressing PROMOGRAN -Primary Dressing Covered/Secured with Dry Gauze,Dry Dry Gauze Gauze & Roll Gauze,Secured with Tape #2 RT POST LE -Primary Dressing Applied Promogran -Other Dressing PROMOGRAN -Primary Dressing Covered/Secured with Dry Gauze,Dry Dry Gauze & Gauze & Roll Roll Gauze, Gauze,Secured Secured with with Tape Tape -Promogran 1 #1 Rt HEMPHILL -Primary Dressing Applied Optilok 6.5x10 -Other Dressing PROMOGRAN -Primary Dressing Covered/Secured with Dry Gauze Dry Gauze -Optilok 6.5x10 1 BLE -Multi-Layered Wrap Application Multi-Layer Multi-Layer Comp - Bilat ($ Comp - Bilat ($ ) ) Pain Scale: 0-10 Numeric Is Patient Pain Free? Yes Yes - Visit Discharge Discharge Condition Stable Ambulatory Status Wheelchair Transportation Private Auto Medication Reconcilliation completed & No provided to patient/care provider Clinical Summary of Care Provided Yes Additional Wound Wound debrided: Right lower extremity (posterior) Type of Debridement: Excisional debridement Anesthesia Used: 5% Lidocaine Gel Depth: Down to and including healthy tissue and in the subcutaneous layer Percentage of wound debrided: 100 and 20 Instrument Used: 5mm curette Tissue Removed: Slough and devitalized tissue Severity: Fat Layer Exposed Amount of bleeding with debridement: Mild Bleeding Controlled with: Pressure Patient tolerated procedure: Patient tolerated procedure well Additional Wound Wound debrided: Left lower extremity (posterior inferior cluster) Type of Debridement: Excisional debridement Anesthesia Used: 5% Lidocaine Gel Depth: Down to and including healthy tissue and in the subcutaneous layer Percentage of wound debrided: 100 Instrument Used: 5mm curette Severity: Fat Layer Exposed Amount of bleeding with debridement: Mild Bleeding Controlled with: Pressure Patient tolerated procedure: Patient tolerated procedure well Additional Wound Wound debrided: Left lower extremity (posterior superior) Type of Debridement: Excisional debridement Anesthesia Used: 5% Lidocaine Gel Depth: Down to and including healthy tissue and in the subcutaneous layer Percentage of wound debrided: 100 Instrument Used: 5mm curette Severity: Fat Layer Exposed Amount of bleeding with debridement: Mild Bleeding Controlled with: Pressure Patient tolerated procedure: Patient tolerated procedure well Assessment/Plan Assessment/Plan (1) Ulcer of left lower extremity with fat layer exposed: CODE(S): L97.922 - Non-pressure chronic ulcer of unspecified part of left lower leg with fat layer exposed (2) Ulcer of right lower extremity with fat layer exposed: CODE(S): L97.912 - Non-pressure chronic ulcer of unspecified part of right lower leg with fat layer exposed (3) Morbid obesity with BMI of 50.0-59.9, adult: CODE(S): E66.01 - Morbid (severe) obesity due to excess calories; Z68.43 - Body mass index [BMI] 50.0-59.9, adult (4) Bilateral lower extremity edema: CODE(S): R60.0 - Localized edema (5) Debility: CODE(S): R53.81 - Other malaise PLAN: Plan Debridement done as documented above, procedure was well-tolerated. Improvement noted to all ulcers. Also improved bilateral lower extremity edema. Continue Promogran to all open areas, cover with Adaptic and foam dressing. 3M wrap for edema management, leave in place for a week. Continue exercise as tolerated, leg elevation and compliance with compression. Continue optimal nutrition/protein intake. Still awaiting labs, he states that he will get it done today. His questions were answered and he was advised to call with any further questions or concerns. Follow-up in 1 week. This note was generated with [employer] dictation software. It may contain incorrect words, spelling, and punctuation that were not noted in checking the note before signing.
[2024-10-07 11:10] VITALS: BP 174/106; PULSE 80; RESP 18; TEMP 36.7; BMI 55.5
--- NOTE | 2024-10-07 12:24 | PCM.WC.PN ---
History of Present Illness Date of Service: 10/07/24 Chief Complaint: Bilateral leg ulcers History of Wound: Mr. Roque is a 49-year-old who was referred to the wound center by his pain management due to bilateral leg ulcers. He states that it has been present for months. Status post revision surgery in April and since then, has had lower extremity edema with subsequent blistering. He states that he has done nothing to these areas of openings. Denies a history of diabetes mellitus, currently at a BMI 55.5. Denies tobacco use. Largely sedentary. He states that he feels well. Progress of Wound: No new concerns reported at this time. Continues to show good improvement. Right posterior ulcer is healed. Tolerating compression without any concerns. Objective Data Objective Data Vital Signs: Vital Signs Temp Pulse Resp BP O2 Del Method 98.1 F 80 18 174/106 H Room Air 10/07/24 11:10 10/07/24 11:10 10/07/24 11:10 10/07/24 11:10 10/07/24 11:10 Oxygen Delivery Method Room Air Weight: 365 lb Body Mass Index (BMI) 55.5 Lab / Micro Data Micro: Microbiology 09/23/24 11:05 Wound - Leg, Right Gram Stain - Final 09/23/24 11:05 Wound - Leg, Right Wound Culture - Final Staphylococcus aureus 09/23/24 11:05 Wound - Leg, Right Anaerobic Culture - Final No anaerobic bacteria isolated. Charges/Coding Procedures Integumentary [id number]: [id number] Lala subq tissue 20 sq cm/< Physical Exam Const alert and oriented x3 General Appearance: cooperative, comfortable and well kempt HEENT normocephalic, head/scalp atraumatic and hearing grossly normal bilaterally Eyes EOMs intact bilaterally General Eye: normal appearance of both eyes Neck full ROM and supple General: normal visual inspection Resp normal respiratory effort Effort and Inspection: able to speak in complete sentences Extremity General Extremity: edema Skin Wounds: wounds noted size Size: See clinical note, bed granulating well, margins well approximated, no odor and open Neuro oriented x3, CN's II-XII intact bilaterally and moves all extremities Psych mental status grossly normal, thought process normal, cooperative, affect normal and speech normal Debridement Note Debridement Note Wound debrided: Right hemphlil Type of Debridement: Excisional debridement Anesthesia Used: 5% Lidocaine Gel Depth: Down to and including healthy tissue and in the subcutaneous layer Percentage of wound debrided: 100 Instrument Used: 5mm curette Tissue Removed: Slough and devitalized tissue Severity: Fat Layer Exposed Amount of bleeding with debridement: Mild Bleeding Controlled with: Pressure Patient tolerated procedure: Patient tolerated procedure well Post-Debridement Measurements and Additional Note: Post-Debridement Measurements/Treatment WC - Nurse 1 - General Ulcer Assessment Start: 09/23/24 10:31 Freq: Status: Active Protocol: STEFFANIE Activity Type Activity Date Activity User E-sign Co-sign Detail Recorded Client Recorded Date Recorded By Document 09/23/24 10:31 KW [id number] 09/23/24 10:43 KW Document 09/30/24 10:54 MT [id number] 09/30/24 11:03 MT Document 10/07/24 11:10 KW [id number] 10/07/24 11:28 KW 09/23/24 09/30/24 10/07/24 10:31 10:54 11:10 - Today's Visit Information Type of service Initial Visit Follow-up Visit Follow-up Visit (Physician/LOCOMOTIVE SWITCH OPERATOR (Physician/LOCOMOTIVE SWITCH OPERATOR ) ) Arrival Mode Wheelchair Wheelchair Wheelchair Patient Identification Verified (Name & Yes Yes Yes ) Height and Weight Height 5 ft 8 in Weight 365 lb Weight in Pounds 365.0 lbs Weight Measurement Method Estimated by Patient Body Mass Index (BMI) 55.5 55.5 55.5 BMI Classification Obese Obese Obese BSA - Mary 2.64 Vital Signs Temperature (97.8 F-99.1 F) 97.9 F 98.1 F Temperature Source Temporal Temporal Pulse Rate (60-100) 74 80 Pulse Location Monitor Monitor Respiratory Rate (12-18) 18 18 18 Respiratory rate source Observation Observation Observation Oxygen Delivery Method Room Air Room Air Room Air Blood Pressure (90/60-120/80) 167/96 H 174/106 H Blood Pressure Mean (mm Hg) 119 128 Source Monitor Monitor Position Sitting Semi-Fowlers Blood Pressure Location Right Forearm Left Arm History Since Last Visit- (Skip if this is Patient's initial visit) Have you changed medications since your No No last visit? Any new allergies or adverse reactions No No Had a fall/change in ADL's that may No No increase risk of falls Signs or symptoms of abuse and/or No No neglect since last visit Have you been in the hospital since your Yes No last visit? Has dressing in place as prescribed Yes Yes Has compression in place as prescribed Yes Yes Has offloadiing in place as prescribed N/A N/A Experienced any changes in pain level or No No management Left Footwear No Footwear Regular Shoe Regular Shoe Right Footwear No Footwear Regular Shoe Regular Shoe Pain Scale: 0-10 Numeric Is Patient Pain Free? Yes Yes Yes WC - Nurse 1 - General Ulcer Measurement Start: 09/23/24 10:31 Freq: Status: Active Protocol: Activity Type Activity Date Activity User E-sign Co-sign Detail Recorded Client Recorded Date Recorded By Document 09/23/24 10:31 KW [id number] 09/23/24 10:43 KW Document 09/30/24 10:54 MT [id number] 09/30/24 11:03 MT Document 10/07/24 11:10 KW [id number] 10/07/24 11:28 KW 09/23/24 09/30/24 10/07/24 10:31 10:54 11:10 Wound Center Nurse 1 #3 LT POST LE CLUSTER SUPERIOR -Current Size (cm) - Length 19.5 0.1 -Current Size (cm) - Width 4 0.1 -Current Size (cm) - Depth 0.1 0.1 -Total Square Cm 78.0 0.01 -Date of Last Picture (Recall this 09/23/24 field) -Exudate Amt Small None Present -Exudate Type Serosanguineous -Wound Margin Distinct, Outline Attached -Granulation Amt Small (1-33%) -Granulation Quality Red -Necrosis Amt Large (67-100%) -Necrotic Tissue Type Adherent Slough -Texture (Lili-wound Skin Appearance) Assessed, Assessed Localized Edema -Moisture (Lili-wound Skin Appearance) Assessed Assessed -Color (Lili-wound Skin Appearance) Assessed, Assessed Erythema -Temperature (Lili-wound Skin No Abnormality No Abnormality Appearance) (Pt Warm) (Pt Warm) -Tenderness on Palpation (Lili-wound No No Skin Appearance) -Ulcer Cleansing Soap and Water Soap and Water -Foul Odor after Cleansing No No -Anesthetic Used 5% Lidocaine Gel #2 RT POST LE -Current Size (cm) - Length 1 0.1 0.1 -Current Size (cm) - Width 1.2 0.1 0.1 -Current Size (cm) - Depth 0.1 0.1 0.1 -Total Square Cm 1.2 0.01 0.01 -Date of Last Picture (Recall this 09/23/24 10/07/24 field) -Exudate Amt Medium Small None Present -Exudate Type Serosanguineous Serosanguineous -Wound Margin Distinct, Distinct, Outline Outline Attached Attached -Granulation Amt Small (1-33%) Large (67-100%) -Granulation Quality [place] Red -Necrosis Amt Large (67-100%) -Necrotic Tissue Type Adherent Slough -Texture (Lili-wound Skin Appearance) Assessed, Assessed Assessed Localized Edema -Moisture (Lili-wound Skin Appearance) Assessed Assessed Assessed -Color (Lili-wound Skin Appearance) Assessed, Assessed Assessed Erythema -Temperature (Lili-wound Skin No Abnormality No Abnormality No Abnormality Appearance) (Pt Warm) (Pt Warm) (Pt Warm) -Tenderness on Palpation (Lili-wound No No No Skin Appearance) -Ulcer Cleansing Soap and Water Soap and Water Soap and Water -Foul Odor after Cleansing No No No -Anesthetic Used 5% Lidocaine 5% Lidocaine 5% Lidocaine Gel Gel Gel #4 LEFT POSTERIOR CLUSTER INFERIOR -Current Size (cm) - Length 8 7 -Current Size (cm) - Width 3 0.5 -Current Size (cm) - Depth 0.2 0.1 -Total Square Cm 24 3.5 -Date of Last Picture (Recall this 10/07/24 field) -Exudate Amt Small None Present -Exudate Type Serosanguineous -Wound Margin Distinct, Distinct, Outline Outline Attached Attached -Granulation Amt Large (67-100%) -Granulation Quality Red -Texture (Lili-wound Skin Appearance) Assessed Assessed -Moisture (Lili-wound Skin Appearance) Assessed Assessed -Color (Lili-wound Skin Appearance) Assessed Assessed -Temperature (Lili-wound Skin No Abnormality No Abnormality Appearance) (Pt Warm) (Pt Warm) -Tenderness on Palpation (Lili-wound No No Skin Appearance) -Ulcer Cleansing Soap and Water Soap and Water -Anesthetic Used 5% Lidocaine 5% Lidocaine Gel Gel #1 Rt HEMPHILL -Current Size (cm) - Length 2.4 1.7 1.2 -Current Size (cm) - Width 1.5 2 1 -Current Size (cm) - Depth 0.1 0.1 0.1 -Total Square Cm 3.60 3.4 1.2 -Date of Last Picture (Recall this 09/23/24 10/07/24 field) -Exudate Amt Large Small Small -Exudate Type Serosanguineous Serosanguineous Serosanguineous -Wound Margin Distinct, Distinct, Distinct, Outline Outline Outline Attached Attached Attached -Granulation Amt Small (1-33%) Large (67-100%) Large (67-100%) -Granulation Quality Red Red Red -Necrosis Amt Large (67-100%) -Necrotic Tissue Type Adherent Slough -Texture (Lili-wound Skin Appearance) Assessed, Assessed Assessed Localized Edema -Moisture (Lili-wound Skin Appearance) Assessed Assessed Assessed -Color (Lili-wound Skin Appearance) Assessed, Assessed Assessed Erythema -Temperature (Lili-wound Skin No Abnormality No Abnormality No Abnormality Appearance) (Pt Warm) (Pt Warm) (Pt Warm) -Tenderness on Palpation (Lili-wound No No Skin Appearance) -Ulcer Cleansing Soap and Water Soap and Water Soap and Water -Foul Odor after Cleansing No No No -Anesthetic Used 5% Lidocaine 5% Lidocaine 5% Lidocaine Gel Gel Gel Right Calf (cm) 49 42.5 Right Ankle (cm) 27.7 27 Left Calf (cm) 51.5 44 Left Ankle (cm) 27.7 27 WC - Nurse 2 - General Ulcer CM Notes Start: 09/23/24 10:31 Freq: Status: Active Protocol: Activity Type Activity Date Activity User E-sign Co-sign Detail Recorded Client Recorded Date Recorded By Document 09/23/24 10:54 [id number] 09/23/24 11:13 Document 09/30/24 11:17 [id number] 09/30/24 11:33 Document 10/07/24 11:34 [id number] 10/07/24 11:44 09/23/24 09/30/24 10/07/24 10:54 11:17 11:34 Wound Center Nurse 2 #3 LT POST LE CLUSTER SUPERIOR -Time 10:54 11:19 -Correct Patient Yes Yes -Correct Side, Site, Position Yes Yes -Correct Procedure Yes Yes -Procedure Performed Yes Yes -Type of Procedure Debridement Debridement -Clinical Debridement Subcutaneous Subcutaneous -Tissue Removed Subcutaneous Subcutaneous -Post Debridement (cm) - Length 3.0 1.1 -Post Debridement (cm) - Width 0.6 0.5 -Post Debridement (cm) - Depth 0.1 0.1 -Total Square (Post) (cm) 1.80 0.55 -Area of Debridement (cm) - Length 3.0 1.1 -Area of Debridement (cm) - Width 0.6 0.5 -Total Square (Area) (cm) 1.80 0.55 -Tunneling No No -Undermining/Tunneling No No -Circular Undermining No -Wound/Ulcer Outcome Not Healed Not Healed -Ulcer Cleansing Rinsed/ Rinsed/ Irrigated with Irrigated with Saline Saline -Foul Odor after Cleansing No No -Bioengineered Tissue No No -Bleeding Controlled with Pressure Pressure -Treatment Response Procedure Procedure Tolerated Well Tolerated Well -Debridement - Subq, 1st 20sq cm No No #2 RT POST LE -Time 10:54 11:17 11:38 -Correct Patient Yes Yes Yes -Correct Side, Site, Position Yes Yes Yes -Correct Procedure Yes Yes -Procedure Performed Yes Yes -Type of Procedure Debridement Debridement -Clinical Debridement Subcutaneous Subcutaneous -Tissue Removed Subcutaneous Subcutaneous -Post Debridement (cm) - Length 0.9 1.0 -Post Debridement (cm) - Width 1.0 0.5 -Post Debridement (cm) - Depth 0.1 0.1 -Total Square (Post) (cm) 0.90 0.50 -Area of Debridement (cm) - Length 0.9 1.0 -Area of Debridement (cm) - Width 1.0 0.5 -Total Square (Area) (cm) 0.90 0.50 -Tunneling No No -Undermining/Tunneling No -Circular Undermining No No -Wound/Ulcer Outcome Not Healed Not Healed Healed- Epithelialized -Ulcer Cleansing Rinsed/ Rinsed/ Irrigated with Irrigated with Saline Saline -Foul Odor after Cleansing No No -Bioengineered Tissue No No -Bleeding Controlled with Pressure Pressure -Treatment Response Procedure Procedure Tolerated Well Tolerated Well -Debridement - Subq, 1st 20sq cm No No #4 LEFT POSTERIOR CLUSTER INFERIOR -Time 11:09 11:20 11:38 -Correct Patient Yes Yes Yes -Correct Side, Site, Position Yes Yes Yes -Correct Procedure Yes Yes Yes -Procedure Performed Yes Yes Yes -Type of Procedure Debridement Debridement Debridement -Clinical Debridement Subcutaneous Subcutaneous Subcutaneous -Tissue Removed Subcutaneous Subcutaneous Subcutaneous -Post Debridement (cm) - Length 8.5 7.6 0.6 -Post Debridement (cm) - Width 4.0 2.0 0.5 -Post Debridement (cm) - Depth 0.1 10.1 0.1 -Total Square (Post) (cm) 34.00 15.20 0.30 -Area of Debridement (cm) - Length 8.5 7.6 0.6 -Area of Debridement (cm) - Width 4.0 2.0 0.5 -Total Square (Area) (cm) 34.00 15.20 0.30 -Tunneling No No No -Undermining/Tunneling No No No -Circular Undermining No No No -Wound/Ulcer Outcome Not Healed Not Healed Not Healed -Ulcer Cleansing Rinsed/ Rinsed/ Rinsed/ Irrigated with Irrigated with Irrigated with Saline Saline Saline -Foul Odor after Cleansing No No No -Bioengineered Tissue No No No -Bleeding Controlled with Pressure Pressure Pressure -Treatment Response Procedure Procedure Procedure Tolerated Well Tolerated Well Tolerated Well -Debridement - Subq, 1st 20sq cm Yes Yes Yes -Debridement, SubQ, ea addt'l 20sq cm 1 or part thereof #1 Rt HEMPHILL -Time 10:54 11:18 11:43 -Correct Patient Yes Yes Yes -Correct Side, Site, Position Yes Yes Yes -Correct Procedure Yes Yes Yes -Procedure Performed Yes Yes Yes -Type of Procedure Debridement Debridement Debridement -Clinical Debridement Subcutaneous Subcutaneous Subcutaneous -Tissue Removed Subcutaneous Subcutaneous Subcutaneous -Post Debridement (cm) - Length 2.0 1.4 1.0 -Post Debridement (cm) - Width 2.0 1.5 1.0 -Post Debridement (cm) - Depth 0.1 0.1 0.1 -Total Square (Post) (cm) 4.00 2.10 1.00 -Area of Debridement (cm) - Length 2.0 1.4 1.0 -Area of Debridement (cm) - Width 2.0 1.5 1.0 -Total Square (Area) (cm) 4.00 2.10 1.00 -Tunneling No No No -Undermining/Tunneling No No No -Circular Undermining No No No -Wound/Ulcer Outcome Not Healed Not Healed Not Healed -Ulcer Cleansing Rinsed/ Rinsed/ Rinsed/ Irrigated with Irrigated with Irrigated with Saline Saline Saline -Foul Odor after Cleansing No No No -Bioengineered Tissue No No No -Bleeding Controlled with Pressure Pressure Pressure -Treatment Response Procedure Procedure Procedure Tolerated Well Tolerated Well Tolerated Well -Debridement - Subq, 1st 20sq cm No No No Pain Scale: 0-10 Numeric Is Patient Pain Free? Yes Yes Yes - Nurse 3 - General Ulcer D/C NN Start: 09/23/24 10:31 Freq: Status: Active Protocol: Activity Type Activity Date Activity User E-sign Co-sign Detail Recorded Client Recorded Date Recorded By Document 09/23/24 11:21 KW [id number] 09/23/24 11:22 KW Document 09/30/24 11:39 KW [id number] 09/30/24 11:40 KW Document 10/07/24 11:59 GM [id number] 10/07/24 12:01 GM 09/23/24 09/30/24 10/07/24 11:21 11:39 11:59 Wound Care Center Nurse 3 #3 LT POST LE CLUSTER SUPERIOR -Other Dressing PROMOGRAN -Primary Dressing Covered/Secured with Dry Gauze,Dry Dry Gauze Gauze & Roll Gauze,Secured with Tape #2 RT POST LE -Primary Dressing Applied Promogran -Other Dressing PROMOGRAN -Primary Dressing Covered/Secured with Dry Gauze,Dry Dry Gauze & Gauze & Roll Roll Gauze, Gauze,Secured Secured with with Tape Tape -Promogran 1 #4 LEFT POSTERIOR CLUSTER INFERIOR -Ulcer Cleansing Not Cleansed -Foul Odor after Cleansing No -Primary Dressing Applied Promogran Promogran Promogran -Primary Dressing Covered/Secured with Dry Gauze, Dry Gauze & Secured with Secured with Roll Gauze, Tape Tape Secured with Tape -Promogran 1 1 1 #1 Rt HEMPHILL -Ulcer Cleansing Not Cleansed -Foul Odor after Cleansing No -Primary Dressing Applied Optilok 6.5x10 -Other Dressing PROMOGRAN -Primary Dressing Covered/Secured with Dry Gauze Dry Gauze -Other Covering used remainder of promogran -Optilok 6.5x10 1 BLE -Multi-Layered Wrap Application Multi-Layer Multi-Layer Multi-Layer Comp - Bilat ($ Comp - Bilat ($ Comp - Bilat ($ ) ) ) Pain Scale: 0-10 Numeric Is Patient Pain Free? Yes Yes Yes - Visit Discharge Discharge Condition Stable Stable Ambulatory Status Wheelchair Ambulatory Transportation Private Auto Private Auto Medication Reconcilliation completed & No provided to patient/care provider Clinical Summary of Care Provided Yes Additional Wound Wound debrided: Left lower extremity (posterior) Type of Debridement: Excisional debridement Anesthesia Used: 5% Lidocaine Gel Depth: Down to and including healthy tissue and in the subcutaneous layer Percentage of wound debrided: 100 Instrument Used: 5mm curette Tissue Removed: Slough and devitalized tissue Severity: Fat Layer Exposed Amount of bleeding with debridement: Mild Bleeding Controlled with: Pressure Patient tolerated procedure: Patient tolerated procedure well Assessment/Plan Assessment/Plan (1) Ulcer of left lower extremity with fat layer exposed: CODE(S): L97.922 - Non-pressure chronic ulcer of unspecified part of left lower leg with fat layer exposed (2) Ulcer of right lower extremity with fat layer exposed: CODE(S): L97.912 - Non-pressure chronic ulcer of unspecified part of right lower leg with fat layer exposed (3) Morbid obesity with BMI of 50.0-59.9, adult: CODE(S): E66.01 - Morbid (severe) obesity due to excess calories; Z68.43 - Body mass index [BMI] 50.0-59.9, adult (4) Bilateral lower extremity edema: CODE(S): R60.0 - Localized edema (5) Debility: CODE(S): R53.81 - Other malaise PLAN: Plan Debridement done as documented above, procedure was well-tolerated. Continues to show good improvement with some areas of healing. Continue Promogran to all open areas, cover with Adaptic and foam dressing. Adaptic to all areas of erythema/recent closure. 3M wrap for edema management, leave in place for a week. Continue exercise as tolerated, leg elevation and compliance with compression. Continue optimal nutrition/protein intake. He was advised to come in on Friday for a nurse visit/ compression change due to the holiday and follow-up with me in 2 weeks. He voiced understanding. Call with any concerns. This note was generated with [email or web address] software. It may contain incorrect words, spelling, and punctuation that were not noted in checking the note before signing.
--- NOTE | 2024-10-08 08:48 | WC ---
PHOTO 10/07/24 LEFT POST LE CLUSTER
--- NOTE | 2024-10-08 08:50 | WC ---
PHOTO 10/07/24 RIGHT POSTERIOR LE
--- NOTE | 2024-10-08 08:51 | WC ---
PHOTO 10/07/24 RIGHT KOENIG
== END 2024-10-16 23:59 | disposition home or self-care (01) ==
LOC: WC 10:30
PROVIDERS: PCP Family Medicine; Referring Provider Anesthesiology Pain Medicine; Visit Provider Internal Medicine
DX: L97.812 Non-pressure chronic ulcer of other part of right lower leg with fat layer exposed (principal); L97.822 Non-pressure chronic ulcer of other part of left lower leg with fat layer exposed; E66.01 Morbid (severe) obesity due to excess calories; Z68.43 Body mass index [BMI] 50.0-59.9, adult; R53.81 Other malaise; Z79.01 Long term (current) use of anticoagulants; Z79.82 Long term (current) use of aspirin; Z79.899 Other long term (current) drug therapy; R60.0 Localized edema
CPT/HCPCS: 11042; 11045; 29581; 87070; 87075; 87077; 87186; 87205; 99213; G0463

== ENCOUNTER → 2024-12-14 | Outpatient (CLI) | payer MEDICAID, SELFPAY ==
[2024-12-14 22:18] LABS: Amphetamine Urine NEGATIVE (<1000 ng/mL); Barbiturate Urine VISTA NEGATIVE (< 200 ng/mL); Benzodiazepine Urine VISTA NEGATIVE (< 200 ng/mL); Cocaine Urine VISTA NEGATIVE (< 300 ng/mL); Ecstacy Urine VISTA NEGATIVE (< 500 ng/mL); Methadone Urine VISTA NEGATIVE (< 300 ng/mL); PCP Urine VISTA NEGATIVE (< 25 ng/mL); THC Urine VISTA NEGATIVE (< 50 ng/mL); Vista UDS pH Range 5
== END | disposition home or self-care (01) ==
LOC: LAB 15:34
PROVIDERS: PCP Family Medicine; Referring Provider Anesthesiology Pain Medicine; Visit Provider Anesthesiology Pain Medicine
DX: F11.20 Opioid dependence, uncomplicated (principal)
CPT/HCPCS: 80307

== ENCOUNTER → 2025-08-16 | Outpatient (CLI) | payer MEDICAID, SELFPAY ==
--- OUTSIDE RECORDS SUMMARY | 2025-06-29 10:40 | XMS RPT_ITS ---
Author Name [employer] [facility] Organization OHIP Care Team Providers Care Child Care Associate Name Role Phone ABY CAMACHO Attending Unavailable JAMESON SOOD Referring Unavailable JAMESON SOOD Primary Care Unavailable MARILEE WICK Attending Unavail able JAMESON SOOD Primary Care Unavailable MOON NG Referring Unavailable JAMESON SOOD Primary Care Unavailable MOON NG Attending Unavailable JAMESON SOOD Primary Care Unavailable MOON NG Referring Unavailable JAMESON SOOD Primary Care Unavailable MOON NG Attending Unavailable JAVIER, JAMESON HERRERA Primary Care Unavailable MOON NG Referring Unavailable JAVIER, JAMESON HERRERA Primary Care Unavailable MOON PEGUERO Attending Unavailable JAMESON SOOD Referring Unavailable JAMESON SOOD Primary Care Unavailable COURTNEY WOODS Attending Unavailable JAMESON SOOD Referring Unavailable JAMESON SOOD Primary Care Unavailable JAMESON SOOD Referring Unavailable JAMESON SOOD Primary Care Unavailable JAMESON SOOD Referring Unavailable JAMESON SOOD Primary Care Unavailable JAMESON SOOD Attending Unavailable JAMESON SOOD Primary Care Unavailable PROBLEMS DATE TYPE CONDITION / CODE ATTENDING STATUS [facility] 06/29/2025 Active Screen for colon cancer / Z12.11(ICD-10) COURTNEY WOODS Active [facility] 06/29/2025 Active History of colon ic polyps / Z86.0100(ICD-10) COURTNEY WOODS Active [facility] 08/21/2023 Admitting Diagnosis Unilateral primary osteoarthritis, left knee / M17.12(ICD-10) MOON NG Active [facility] 08/14/2020 Active Primary hypertension / I10(ICD-10) NA Active [facility] 06/03/2025 Active SOB (shortness o f breath) / R06.02(ICD-10) NA Active [facility] 06/03/2025 Active Screening for prostate cancer / Z12.5(ICD-10) NA Active [facility] 06/03/2025 Active Screening for diabetes mellitus (DM) / Z13.1(ICD-10) NA Active [facility] 06/03/2025 Active Chronic prescription opiate use / Z79.891(ICD-10) JAMESON SOOD Active [facility] 10/17/2022 Active Obesity, Class I II, BMI 40-49.9 (morbid obesity) (HCC) / E66.813(ICD-10) JAMESON SOOD Active [facility] 10/17/2022 Active Renal cell cance r, right (HCC) / C64.1(ICD-10) JAMESON SOOD Active [facility] 07/03/2020 Active Chronic diarrhea / K52.9(ICD-10) JAMESON SOOD [facility] 06/03/2025 Active Closed fracture of left femur with nonunion, unspecified fracture morphology, unspecified portion of femur, subsequent encounter / S72.92XK(ICD-10) JAMESON SOOD [facility] 06/03/2025 Active Anxiety / F41.9(ICD-10) JAMESON SOOD [facility] 06/03/2025 Active Encounter for screening examination for other mental health and behavioral disorders / Z13.39(ICD-10) JAMESON SOOD [facility] 06/03/2025 Active Screening for depression / Z13.31(ICD-10) JAMESON SOOD [facility] 08/29/2022 Admitting Diagnosis Morbid (severe) obesity due to excess calories (HCC) / E66.01(ICD-10) [facility] Ad[facility] Diagnosis Epigastric pain / R10.13(ICD-10) [facility] Admitting Diagnosis Body mass index (BMI) 60.0-69.9, adult (HCC) / Z68.44(ICD-10) [facility] Active Malignant neopla sm of right kidney, except renal pelvis (HCC) / C64.1(ICD-10) MOON PEGUERO [facility] 01/17/2025 Active Gross hematuria / R31.0(ICD-10) MOON PEGUERO [facility] 06/09/2024 Admitting Diagnosis Displaced comminuted fracture of shaft of unspecified femur, initial encounter for closed fracture (Multi) / S72.353A(ICD-10) CARA Active [facility] 11/03/2023 Admitting Diagnosis Other fracture of lower end of left femur, subsequent encounter for closed fracture with nonunion / S72.492K(ICD-10) MARILEE WICK [facility] PROCEDURES No Procedure Records Found RESULTS CNOV Observed: 06/29/2025 11:00 AM Status: COMPLETED Source: [facility] Office Visit (GENSWS) MYAJORGE ([id number]) 1975 M Date Time Provider Department 06/29/25 11:00 AM COURTNEY WOODS During your visit today, we recorded the following information about you: Pulse Blood pressure Weight 85/minute 136/96 186 kg Courtney Woods APRN.PYROTECHNICIAN 06/29/2025 11:37 AM Signed HISTORY AND PHYSICAL Jorge Mojica : 1975 REFERRING PHYSICIAN: Jameson Lara [facility] [address] CHIEF COMPLAINT: Patient presents with: Consult: Diarrhea. HPI: Jorge is a 50 year old male referred for endoscopy. Jorge notes Jorge notes due for screening colonoscopy- hx of polyps (2019). Jorge denies abdominal pain. Jorge notes diarrhea. -chronic since 2012 -used to be triggered by diet but now occurring all the time. -takes pepto bismol with relief -diet high in sugar Jorge denies constipation. Jorge denies a change in bowel habits. Jorge denies melena. Jorge denies bright red blood per rectum. Jorge denies hemorrhoids. Jorge notes family history of colon issues. Paternal grandfather with colon cancer Jorge denies heartburn. Jorge denies dysphagia. Jorge denies a history of ulcers/ peptic ulcer disease. Jorge has a hx of renal cancer (2018) with partial right nephrectomy Jorge has a hx of femur fx in 2022 requiring 2 surgeries. He recently started ambulating again with a cane and notes increased dyspnea. This has been an ongoing problem for the last 3 years. Was referred to cardiology in the past who recommended stress test. Cardiology appt is scheduled for 07/25/25 Jorge has undergone prior endoscopy. Last EGD AND colonoscopy was 07/[address] Rocha at [place]. Sedation: MAC EGD Impression: - Normal examined jejunum. Biopsied. - Normal examined duodenum. - Gastritis. Biopsied. - Normal gastroesophageal junction. - LA Grade B reflux esophagitis. Biopsied. - Normal middle third of esophagus. Biopsied. COLONOSCOPY Impression: - Preparation of the colon was fair. - The examined portion of the ileum was normal. Biopsied. - One small polyp in the proximal transverse colon, removed with a cold biopsy forceps. Resected and retrieved. - The entire examined colon is normal. Biopsied. - The distal rectum and anal verge are normal on retroflexion view. - Diverticulosis in the sigmoid colon. CONVERTED FINAL DIAGNOSIS 1. Distal esophagus, biopsy (A) - Squamous mucosa with focal active inflammation and reactive changes. - No evidence of intestinal metaplasia or dysplasia. 2. Mid esophagus, biopsy (B) - Squamous mucosa with no diagnostic alteration. 3. Stomach, biopsy (C) - Antral mucosa with no diagnostic alteration. - No evidence of Helicobacter pylori. 4. Jejunum, biopsy (D) - Small bowel mucosa with no diagnostic alteration. 5. Random colon, biopsy (E) - Colonic mucosa with no diagnostic alteration. 6. Terminal ileum, biopsy (F) - Small bowel mucosa with no diagnostic alteration. 7. Transverse colon, polypectomy (G) - Tubular adenoma. TPP/dsh 08/15/2020 CURRENT MEDICATIONS[1] ALLERGIES: Hydrocortisone, Milk, and Tramadol PAST MEDICAL HISTORY[2] PAST SURGICAL HISTORY Procedure Laterality Date COLONOSCOPY FLX DX W/COLLJ SPEC WHEN PFRMD 08/14/2020 Colonoscopy ESOPHAGOGASTRODUODENOSCOPY TRANSORAL DIAGNOSTIC 08/14/2020 EGD HERNIA REPAIR HX 11/2018 KIDNEY SURGERY HX 2018 partial kidney removal right kidney KIDNEY SURGERY HX Right removal REPAIR FEMUR FX W/RODDING Left 2022 REPAIR FEMUR FX W/RODDING Left 2023 RPR UMBILICAL HRNA 5 YRS/> REDUCIBLE 01/21/2013 FAMILY HISTORY[3] SOCIAL HISTORY[4] REVIEW OF SYMPTOMS: REVIEW OF SYSTEMS: General: The patient denies fatigue, denies weight loss, + weight gain, denies feeling hot, and feelings of cold. Eyes: The patient denies glaucoma, denies eye injury/surgery, denies glasses or contacts. Ear/Nose/Throat: The patient denies allergies, denies hayfever, denies ear infections, and denies bloody noses. Cardiovascular: The patient denies chest pain, denies heart disease, denies high blood pressure, denies high cholesterol, and denies poor circulation. Respiratory: The patient denies tuberculosis, denies pneumonia, denies frequent cough, denies shortness of breath, and denies coughing up blood. Gastrointestinal: The patient denies difficulty swallowing, denies acid reflux, denies ulcers, denies jaundice/hepatitis, denies gallbladder problems, denies vomiting, denies black or tarry stools, denies hemorrhoids, denies bleeding from rectum, denies diverticulitis, denies constipation, + diarrhea, denies loss of stool control, and denies hernias. Kidney/Bladder: The patient denies kidney stones, denies urine infections, and denies bloody urine. Skin: The patient denies a history of skin cancer, denies bleeding/changing moles, and denies a history of skin rash. Neurologic: The patient denies a history of epilepsy/convulsions, denies headaches, denies head/spinal injuries, and denies stroke/TIA. Psychiatric: The patient denies psychiatric medications, + depression, and denies voices. Endocrine: The patient denies thyroid disorders, denies diabetes, and denies hormonal problems. Hematologic: The patient denies a history of bruising, denies bleeding, and denies anemia. Infections: The patient denies a history of measles and mumps, denies rheumatic fever, and denies sexually transmitted diseases. Musculoskeletal: The patient denies back pain/injury, denies back problems, denies sciatica, denies knee/foot trouble, denies arthritis, or denies gout. PHYSICAL EXAMINATION: General: The patient is 50 year old, male well nourished, well hydrated in no acute distress. The patient is oriented to time, place, and person. VITALS: Blood pressure 136/96, pulse 85, weight (!) 186 kg (410 lb), SpO2 95%. Body mass index is 62.34 kg/m?. HEENT: Normal cephalic, ataumatic, pupils are equally round, sclera are anicteric, mucous membranes are moist, oropharynx is clear. Neck has no masses or asymmetry . Respiratory: Clear to auscultation. Cardiac: Regular rate and rhythm. Abdominal exam: Soft, nontender, with no palpable masses. No hepatosplenomegaly. No palpable hernias. Extremities: no clubbing or cyanosis LABORATORY VALUES: As Noted RADIOLOGIC STUDIES: As Noted Assessment IMPRESSION: screen for colon cancer, history of colon polyps PLAN: I have reviewed my findings with the surgeon. Will plan for upper AND lower endoscopy. We discussed the risks and benefits of the planned endoscopy in terms understandable to the patient. I have informed the patient that complications can occur including failure to complete the endoscopy and perforation. Jorge had the opportunity to ask questions concerning the planned endoscopy. Jorge freely consents to surgery. At this time we will post pone endoscopy until cardiology visit/ any further work up. Diarrhea has been chronic. If Jorge develops any worsening/concerning symptoms he should let me know. I plan to use Golytely bowel preparation Instructed to hold Ozempic for 7 days prior to endoscopy.- if initiated by weight management. I have explained to the patient the difference between IV conscious sedation and MAC anesthesia - and I have offered either, according to the patient's wishes. I have explained that with IV conscious sedation there is no anesthesia provider available and therefore there is a limitation of the amount of IV medications that can be given and that the patient may wake up in the middle of the procedure and/or experience pain/discomfort during the procedure. Further discussion was done and the patient was given the opportunity to ask questions and all questions were answered. MAC anesthesia in OR. Jorge was counseled that if there are changes in his/her medical condition, to let the office know if surgery should proceed. If there are changes in patient's medical condition from time of this encounter to the day of the procedure that preclude anesthesia, patient may have procedure cancelled for patient's safety. Diagnoses: (Z12.11) Screen for colon cancer (primary encounter diagnosis) (Z86.0100) History of colonic polyps Consultation requested by Dr. Sood for an opinion regarding chronic diarrhea AND history of colon polyps. My final recommendations will be communicated back to the requesting physician by way of shared Medical record or letter to requesting physician via US mail. Portions of this documentation were copied and pasted from previous office visit notes in order to provide a cohesive continuity of the history. The note has been reviewed and edited and updated as necessary. Courtney Woods APRN.PYROTECHNICIAN [1] Current Outpatient Medications Medication Sig cholecalciferol, vitamin D3, (VITAMIN D3 PO) Take by mouth. khddzzd-endqtqbim-itzoegz D3 500 mg-5 mcg (200 unit) per tablet Take 1 tablet by mouth two times a day with meals. aspirin, enteric coated (ASPIRIN, ENTERIC COATED) 81 mg EC tablet Take 1 tablet by mouth once daily. buPROPion XL (WELLBUTRIN XL) 300 mg 24 hr tablet Take 1 tablet by mouth once daily. Along with 150 mg tablet buPROPion XL (WELLBUTRIN XL) 150 mg 24 hr tablet Take 1 tablet by mouth once daily. Along with 300 mg tablet HYDROcodone-acetaminophen (NORCO) 5-325 mg per tablet iv contrast (will be provided with radiology test) MRI Kidney Inject, intravenously, once for 1 dose. No IV access, insert saline lock prior to the beginning of sedation, infusion, injection of imaging exam. Discontinue saline lock post exam. If Pt. has a central line or IVAD, may access for administration according to line specific nursing protocol. Once exam is complete flush line and de-access according to line specific nursing protocol in the MR contrast administration guidelines link. iv contrast (will be provided with radiology test) MRI Kidney Inject, intravenously, once for 1 dose. No IV access, insert saline lock prior to the beginning of sedation, infusion, injection of imaging exam. Discontinue saline lock post exam. If Pt. has a central line or IVAD, may access for administration according to line specific nursing protocol. Once exam is complete flush line and de-access according to line specific nursing protocol in the MR contrast administration guidelines link. No current facility-administered medications for this visit. 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, unspecified fracture morphology, unspecified portion of femur, subsequent encounter Hernia, abdominal History of colonic polyps Hypertension Morbid obesity (HCC) Obesity, Class III, BMI 40-49.9 (morbid obesity) (HCC) Opioid use disorder, mild, abuse (HCC) see below Primary hypertension Renal cell cancer, right (HCC) Right renal mass Sleep apnea Substance abuse (HCC) cocaine and cannabis per counseling center notes, seeing counseling center [3] FAMILY HISTORY Problem Relation Age of Onset Hypertension Father Arthritis Father Diabetes Father other (obesity) Father Hypertension Paternal Grandmother Heart Paternal Grandmother Diabetes Paternal Grandmother other (renal failure) Paternal Grandmother Hypertension Paternal Grandfather Heart Paternal Grandfather Diabetes Paternal Grandfather [4] Social History Tobacco Use Smoking status: Never Smokeless tobacco: Never Vaping Use Vaping status: Never Used Substance Use Topics Alcohol use: No Drug use: Not Currently Comment: 03/12/23 recovered from substance use over ten years ago. Referring Provider: JAMESON SOOD [[id number]] Allergies As of Date: 06/29/2025 Noted Allergy Reaction HYDROCORTISONE 04/22/2018 2 - Rash Comments: topical Can take prednisone MILK 10/16/2022 8 - GI Upset TRAMADOL 04/22/2018 8 - GI Upset Date Reviewed: 06/29/2025 Reviewed by: Courtney Woods APRN.PYROTECHNICIAN - Fully Assessed Reason for Visit: Consult [173] Cmt: Diarrhea. Primary Visit Diagnosis:Screen for colon cancer [Z12.11] Other Visit Diagnosis:History of colonic polyps [Z86.0100] Prescriptions as of 06/29/2025 - cholecalciferol, vitamin D3, (VITAMIN D3 PO) Take by mouth. - iv contrast (will be provided with radiology test) MRI Kidney Inject, intravenously, once for 1 dose. No IV access, insert saline lock prior to the beginning of sedation, infusion, injection of imaging exam. Discontinue saline lock post exam. If Pt. has a central line or IVAD, may access for administration according to line specific nursing protocol. Once exam is complete flush line and de-access according to line specific nursing protocol in the MR contrast administration guidelines link. - iv contrast (will be provided with radiology test) MRI Kidney Inject, intravenously, once for 1 dose. No IV access, insert saline lock prior to the beginning of sedation, infusion, injection of imaging exam. Discontinue saline lock post exam. If Pt. has a central line or IVAD, may access for administration according to line specific nursing protocol. Once exam is complete flush line and de-access according to line specific nursing protocol in the MR contrast administration guidelines link. - nkxbflz-zdsjykivg-tzjssso D3 500 mg-5 mcg (200 unit) per tablet Take 1 tablet by mouth two times a day with meals. - aspirin, enteric coated (ASPIRIN, ENTERIC COATED) 81 mg EC tablet Take 1 tablet by mouth once daily. - buPROPion XL (WELLBUTRIN XL) 300 mg 24 hr tablet Take 1 tablet by mouth once daily. Along with 150 mg tablet - buPROPion XL (WELLBUTRIN XL) 150 mg 24 hr tablet Take 1 tablet by mouth once daily. Along with 300 mg tablet - HYDROcodone-acetaminophen (NORCO) 5-325 mg per tablet Problem List As Of Date 06/29/2025 Noted Resolved Hypertension [I10] 11/05/2011 Left knee pain [M25.562] 11/05/2011 Patellar tendinitis [M76.50] 12/22/2011 Morbid obesity (HCC) [E66.01] 05/07/2013 Right renal mass [N28.89] 01/20/2018 07/06/2018 Obesity, Class III, BMI >= 40 E66.01 [E66.813] 03/09/2018 Renal mass, right [N28.89] 03/09/2018 07/06/2018 Renal cell cancer, right (HCC) [C64.1] 03/19/2018 Ventral hernia without obstruction or gangrene *06/29/2020 Chronic diarrhea [K52.9] 07/03/2020 Change in bowel function [R19.8] 07/03/2020 11/21/2022 Lumbar pain [M54.50] 08/25/2020 Right upper quadrant pain [R10.11] 08/31/2020 11/21/2022 Osteoarthritis of left knee [M17.12] 07/22/2022 Right renal mass [N28.89] 08/01/2022 10/21/2022 Syncope and collapse [R55] 10/15/2022 10/17/2022 Opiate overdose (HCC) [T40.601A] 10/21/2022 Thyroid nodule [E04.1] 11/21/2022 Chronic prescription opiate use [Z79.891] 06/03/2025 Encounter Status:Closed by COURTNEY WOODS on 06/29/25 PROGRESS Observed: 06/29/2025 11:00 AM Status: COMPLETED Source: [facility] HNO ID: [id number] Author: COURTNEY WOODS APRN.PYROTECHNICIAN Service: ? Author Type: Nurse Practitioner Type: Progress Notes Filed: 06/29/2025 11:37 Note Text: HISTORY AND PHYSICAL Jorge Mojica : 1975 REFERRING PHYSICIAN: Jameson Lara [facility] [address] CHIEF COMPLAINT: Patient presents with: Consult: Diarrhea. HPI: Jorge is a 50 year old male referred for endoscopy. Jorge notes Jorge notes due for screening colonoscopy- hx of polyps (2019). Jorge denies abdominal pain. Jorge notes diarrhea. -chronic since 2012 -used to be triggered by diet but now occurring all the time. -takes pepto bismol with relief -diet high in sugar Jorge denies constipation. Jorge denies a change in bowel habits. Jorge denies melena. Jorge denies bright red blood per rectum. Jorge denies hemorrhoids. Jorge notes family history of colon issues. Paternal grandfather with colon cancer Jorge denies heartburn. Jorge denies dysphagia. Jorge denies a history of ulcers/ peptic ulcer disease. Jorge has a hx of renal cancer (2017) with partial right nephrectomy Jorge has a hx of femur fx in 2022 requiring 2 surgeries. He recently started ambulating again with a cane and notes increased dyspnea. This has been an ongoing problem for the last 3 years. Was referred to cardiology in the past who recommended stress test. Cardiology appt is scheduled for 07/25/25 Jorge has undergone prior endoscopy. Last EGD AND colonoscopy was 07/[address] Rocha at [place]. Sedation: MAC EGD Impression: - Normal examined jejunum. Biopsied. - Normal examined duodenum. - Gastritis. Biopsied. - Normal gastroesophageal junction. - LA Grade B reflux esophagitis. Biopsied. - Normal middle third of esophagus. Biopsied. COLONOSCOPY Impression: - Preparation of the colon was fair. - The examined portion of the ileum was normal. Biopsied. - One small polyp in the proximal transverse colon, removed with a cold biopsy forceps. Resected and retrieved. - The entire examined colon is normal. Biopsied. - The distal rectum and anal verge are normal on retroflexion view. - Diverticulosis in the sigmoid colon. CONVERTED FINAL DIAGNOSIS 1. Distal esophagus, biopsy (A) - Squamous mucosa with focal active inflammation and reactive changes. - No evidence of intestinal metaplasia or dysplasia. 2. Mid esophagus, biopsy (B) - Squamous mucosa with no diagnostic alteration. 3. Stomach, biopsy (C) - Antral mucosa with no diagnostic alteration. - No evidence of Helicobacter pylori. 4. Jejunum, biopsy (D) - Small bowel mucosa with no diagnostic alteration. 5. Random colon, biopsy (E) - Colonic mucosa with no diagnostic alteration. 6. Terminal ileum, biopsy (F) - Small bowel mucosa with no diagnostic alteration. 7. Transverse colon, polypectomy (G) - Tubular adenoma. TPP/dsh 08/15/2020 CURRENT MEDICATIONS[1] ALLERGIES: Hydrocortisone, Milk, and Tramadol PAST MEDICAL HISTORY[2] PAST SURGICAL HISTORY Procedure Laterality Date COLONOSCOPY FLX DX W/COLLJ SPEC WHEN PFRMD 08/14/2020 Colonoscopy ESOPHAGOGASTRODUODENOSCOPY TRANSORAL DIAGNOSTIC 08/14/2020 EGD HERNIA REPAIR HX 11/2018 KIDNEY SURGERY HX 2018 partial kidney removal right kidney KIDNEY SURGERY HX Right removal REPAIR FEMUR FX W/RODDING Left 2022 REPAIR FEMUR FX W/RODDING Left 2023 RPR UMBILICAL HRNA 5 YRS/> REDUCIBLE 01/21/2013 FAMILY HISTORY[3] SOCIAL HISTORY[4] REVIEW OF SYMPTOMS: REVIEW OF SYSTEMS: General: The patient denies fatigue, denies weight loss, + weight gain, denies feeling hot, and feelings of cold. Eyes: The patient denies glaucoma, denies eye injury/surgery, denies glasses or contacts. Ear/Nose/Throat: The patient denies allergies, denies hayfever, denies ear infections, and denies bloody noses. Cardiovascular: The patient denies chest pain, denies heart disease, denies high blood pressure, denies high cholesterol, and denies poor circulation. Respiratory: The patient denies tuberculosis, denies pneumonia, denies frequent cough, denies shortness of breath, and denies coughing up blood. Gastrointestinal: The patient denies difficulty swallowing, denies acid reflux, denies ulcers, denies jaundice/hepatitis, denies gallbladder problems, denies vomiting, denies black or tarry stools, denies hemorrhoids, denies bleeding from rectum, denies diverticulitis, denies constipation, + diarrhea, denies loss of stool control, and denies hernias. Kidney/Bladder: The patient denies kidney stones, denies urine infections, and denies bloody urine. Skin: The patient denies a history of skin cancer, denies bleeding/changing moles, and denies a history of skin rash. Neurologic: The patient denies a history of epilepsy/convulsions, denies headaches, denies head/spinal injuries, and denies stroke/TIA. Psychiatric: The patient denies psychiatric medications, + depression, and denies voices. Endocrine: The patient denies thyroid disorders, denies diabetes, and denies hormonal problems. Hematologic: The patient denies a history of bruising, denies bleeding, and denies anemia. Infections: The patient denies a history of measles and mumps, denies rheumatic fever, and denies sexually transmitted diseases. Musculoskeletal: The patient denies back pain/injury, denies back problems, denies sciatica, denies knee/foot trouble, denies arthritis, or denies gout. PHYSICAL EXAMINATION: General: The patient is 50 year old, male well nourished, well hydrated in no acute distress. The patient is oriented to time, place, and person. VITALS: Blood pressure 136/96, pulse 85, weight (!) 186 kg (410 lb), SpO2 95%. Body mass index is 62.34 kg/m?. HEENT: Normal cephalic, ataumatic, pupils are equally round, sclera are anicteric, mucous membranes are moist, oropharynx is clear. Neck has no masses or asymmetry . Respiratory: Clear to auscultation. Cardiac: Regular rate and rhythm. Abdominal exam: Soft, nontender, with no palpable masses. No hepatosplenomegaly. No palpable hernias. Extremities: no clubbing or cyanosis LABORATORY VALUES: As Noted RADIOLOGIC STUDIES: As Noted Assessment IMPRESSION: screen for colon cancer, history of colon polyps PLAN: I have reviewed my findings with the surgeon. Will plan for upper AND lower endoscopy. We discussed the risks and benefits of the planned endoscopy in terms understandable to the patient. I have informed the patient that complications can occur including failure to complete the endoscopy and perforation. Jorge had the opportunity to ask questions concerning the planned endoscopy. Jorge freely consents to surgery. At this time we will post pone endoscopy until cardiology visit/ any further work up. Diarrhea has been chronic. If Jorge develops any worsening/concerning symptoms he should let me know. I plan to use Golytely bowel preparation Instructed to hold Ozempic for 7 days prior to endoscopy.- if initiated by weight management. I have explained to the patient the difference between IV conscious sedation and MAC anesthesia - and I have offered either, according to the patient's wishes. I have explained that with IV conscious sedation there is no anesthesia provider available and therefore there is a limitation of the amount of IV medications that can be given and that the patient may wake up in the middle of the procedure and/or experience pain/discomfort during the procedure. Further discussion was done and the patient was given the opportunity to ask questions and all questions were answered. MAC anesthesia in OR. Jorge was counseled that if there are changes in his/her medical condition, to let the office know if surgery should proceed. If there are changes in patient's medical condition from time of this encounter to the day of the procedure that preclude anesthesia, patient may have procedure cancelled for patient's safety. Diagnoses: (Z12.11) Screen for colon cancer (primary encounter diagnosis) (Z86.0100) History of colonic polyps Consultation requested by Dr. Sood for an opinion regarding chronic diarrhea AND history of colon polyps. My final recommendations will be communicated back to the requesting physician by way of shared Medical record or letter to requesting physician via US mail. Portions of this documentation were copied and pasted from previous office visit notes in order to provide a cohesive continuity of the history. The note has been reviewed and edited and updated as necessary. Courtney Woods APRN.PYROTECHNICIAN [1] Current Outpatient Medications Medication Sig cholecalciferol, vitamin D3, (VITAMIN D3 PO) Take by mouth. xhtoobe-ggylkjcqz-kvzjatr D3 500 mg-5 mcg (200 unit) per tablet Take 1 tablet by mouth two times a day with meals. aspirin, enteric coated (ASPIRIN, ENTERIC COATED) 81 mg EC tablet Take 1 tablet by mouth once daily. buPROPion XL (WELLBUTRIN XL) 300 mg 24 hr tablet Take 1 tablet by mouth once daily. Along with 150 mg tablet buPROPion XL (WELLBUTRIN XL) 150 mg 24 hr tablet Take 1 tablet by mouth once daily. Along with 300 mg tablet HYDROcodone-acetaminophen (NORCO) 5-325 mg per tablet iv contrast (will be provided with radiology test) MRI Kidney Inject, intravenously, once for 1 dose. No IV access, insert saline lock prior to the beginning of sedation, infusion, injection of imaging exam. Discontinue saline lock post exam. If Pt. has a central line or IVAD, may access for administration according to line specific nursing protocol. Once exam is complete flush line and de-access according to line specific nursing protocol in the MR contrast administration guidelines link. iv contrast (will be provided with radiology test) MRI Kidney Inject, intravenously, once for 1 dose. No IV access, insert saline lock prior to the beginning of sedation, infusion, injection of imaging exam. Discontinue saline lock post exam. If Pt. has a central line or IVAD, may access for administration according to line specific nursing protocol. Once exam is complete flush line and de-access according to line specific nursing protocol in the MR contrast administration guidelines link. No current facility-administered medications for this visit. 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, unspecified fracture morphology, unspecified portion of femur, subsequent encounter Hernia, abdominal History of colonic polyps Hypertension Morbid obesity (HCC) Obesity, Class III, BMI 40-49.9 (morbid obesity) (HCC) Opioid use disorder, mild, abuse (HCC) see below Primary hypertension Renal cell cancer, right (HCC) Right renal mass Sleep apnea Substance abuse (HCC) cocaine and cannabis per counseling center notes, seeing counseling center [3] FAMILY HISTORY Problem Relation Age of Onset Hypertension Father Arthritis Father Diabetes Father other (obesity) Father Hypertension Paternal Grandmother Heart Paternal Grandmother Diabetes Paternal Grandmother other (renal failure) Paternal Grandmother Hypertension Paternal Grandfather Heart Paternal Grandfather Diabetes Paternal Grandfather [4] Social History Tobacco Use Smoking status: Never Smokeless tobacco: Never Vaping Use Vaping status: Never Used Substance Use Topics Alcohol use: No Drug use: Not Currently Comment: 03/12/23 recovered from substance use over ten years ago. XR FEMUR LEFT 2+ VIEWS Observed: 025 1:23 PM Status: F Source: [facility] Interpreted By: Giles Polo, STUDY: XR FEMUR LEFT 2+ VIEWS; ; 06/13/2025 1:48 pm INDICATION: Signs/Symptoms:fuv. ,S72.492K Other fracture of lower end of left femur, subsequent encounter for closed fracture with nonunion,M17.12 Unilateral primary osteoarthritis, left knee COMPARISON: 02/07/2025 ACCESSION NUMBER(S): [id number] ORDERING CLINICIAN: MOON NG FINDINGS: Two views of the left femur. Intramedullary nail and interlocking screws transfixing a subacute to chronic distal femoral metadiaphyseal fracture with areas of nonunion. There is fracturing of a proximal interlocking screw. Mild left hip arthrosis. Advanced left knee osteoarthrosis. The soft tissues are unremarkable. IMPRESSION: Postsurgical changes status post distal femoral fracture fixation with nonunion and fracturing of the proximal interlocking screw. MACRO: None Signed by: Luis Polo 06/13/2025 2:04 PM Dictation workstation: [id number] PROGRESS Observed: 06/03/2025 5:13 PM Status: COMPLETED Source: [facility] HNO ID: [id number] Author: JAMESON SOOD MD Service: ? Author Type: Physician Type: Progress Notes Filed: 06/03/2025 17:13 Note Text: Jorge Mojica is a 50-year-old male with a history of renal cell carcinoma, depression, and chronic diarrhea, presenting for follow-up of left femur fracture, dyspnea, and weight management. HPI Left Femur Fracture: - Sustained a left femur fracture in 2022, requiring two surgeries; currently under the care of ortho at . - Delayed healing; potential need for a third surgery involving a bone graft. - Bearing weight on the left leg as advised by the orthopedic team to promote healing. - Chronic edema in the right leg, more pronounced than in the left, attributed to water retention post-surgery. - Using a cane for ambulation around the house. - I have not seen hiim in some time. Dyspnea: - Onset of dyspnea coincided with resumption of ambulation. - Review of notes show he was seeing cardiology and did not keep cardiology follow ups or do an ordered stress test for the same issues three years ago. - Denies chest pain, cough, or wheezing or cough or edema. - No significant change in dyspnea since starting to walk again. - History of dyspnea dating back three years, with previous evaluation by cardiology. Chronic Diarrhea: - Chronic diarrhea since 2012, worsening recently. - Initially triggered by certain foods (ice cream, pizza, chicken kasandra); now occurs without dietary triggers. - History of intestinal hernia repair in 2012. - Polyp found during colonoscopy in 2019, with follow-up by [facility]. He is going to be due for repeat colonoscopy. Renal Cell Carcinoma: - Under the care of Dr. Peguero, urologist. - Scheduled for MRI of the kidney and CT of the chest for follow-up but never kept the follow up or got his scans. Depression: - Managed with Wellbutrin (bupropion). - Denies recent anxiety, loss of interest, or hopelessness. Weight Management: - Jorge expresses concern about weight gain due to limited mobility. - Interested in weight loss options, including medication and bariatric surgery. - Discussed glp-1s and poor insurance coverage. MEDICATIONS: Current Outpatient Medications Medication Sig cholecalciferol, vitamin D3, (VITAMIN D3 PO) Take by mouth. HYDROcodone-acetaminophen (NORCO) 5-325 mg per tablet iv contrast (will be provided with radiology test) MRI Kidney Inject, intravenously, once for 1 dose. No IV access, insert saline lock prior to the beginning of sedation, infusion, injection of imaging exam. Discontinue saline lock post exam. If Pt. has a central line or IVAD, may access for administration according to line specific nursing protocol. Once exam is complete flush line and de-access according to line specific nursing protocol in the MR contrast administration guidelines link. iv contrast (will be provided with radiology test) MRI Kidney Inject, intravenously, once for 1 dose. No IV access, insert saline lock prior to the beginning of sedation, infusion, injection of imaging exam. Discontinue saline lock post exam. If Pt. has a central line or IVAD, may access for administration according to line specific nursing protocol. Once exam is complete flush line and de-access according to line specific nursing protocol in the MR contrast administration guidelines link. hkizxvv-tbumoflzv-fpaddnx D3 500 mg-5 mcg (200 unit) per tablet Take 1 tablet by mouth two times a day with meals. aspirin, enteric coated (ASPIRIN, ENTERIC COATED) 81 mg EC tablet Take 1 tablet by mouth once daily. buPROPion XL (WELLBUTRIN XL) 300 mg 24 hr tablet Take 1 tablet by mouth once daily. Along with 150 mg tablet buPROPion XL (WELLBUTRIN XL) 150 mg 24 hr tablet Take 1 tablet by mouth once daily. Along with 300 mg tablet No current facility-administered medications for this visit. ALLERGIES: ALLERGIES Allergen Reactions Hydrocortisone Rash topical Can take prednisone Milk GI Upset Tramadol GI Upset PAST MEDICAL HISTORY Diagnosis Date Arthritis Cancer (HCC) part of rightkidney removed 2018 Hernia, abdominal Hypertension Morbid obesity (HCC) Opioid use disorder, mild, abuse (HCC) see below Right renal mass Sleep apnea Substance abuse (HCC) cocaine and cannabis per counseling center notes, seeing counseling center PAST SURGICAL HISTORY Procedure Laterality Date COLONOSCOPY FLX DX W/COLLJ SPEC WHEN PFRMD 08/14/2020 Colonoscopy ESOPHAGOGASTRODUODENOSCOPY TRANSORAL DIAGNOSTIC 08/14/2020 EGD HERNIA REPAIR HX 11/2018 KIDNEY SURGERY HX 2018 partial kidney removal right kidney KIDNEY SURGERY HX Right removal RPR UMBILICAL HRNA 5 YRS/> REDUCIBLE 01/21/2013 FAMILY HISTORY Problem Relation Age of Onset Hypertension Father Arthritis Father Diabetes Father other (obesity) Father Hypertension Paternal Grandmother Heart Paternal Grandmother Diabetes Paternal Grandmother other (renal failure) Paternal Grandmother Hypertension Paternal Grandfather Heart Paternal Grandfather Diabetes Paternal Grandfather Social History Tobacco Use Smoking status: Never Smokeless tobacco: Never Vaping Use Vaping status: Never Used Substance Use Topics Alcohol use: No Drug use: Not Currently Comment: 03/12/23 recovered from substance use over ten years ago. Reviewed current medications, allergies, past medical history, surgical history, family history and social history today. REVIEW OF SYSTEMS Constitutional: (+) weight gain Cardiovascular: (+) leg swelling, (-) chest pain Respiratory: (+) exertional dyspnea, (-) cough, (-) wheezing Gastrointestinal: (+) diarrhea Musculoskeletal: (+) left leg pain Neurological: (-) syncope Psychiatric: (-) anxiety, (-) depressed mood, (-) anhedonia HEALTH MAINTENANCE: Reviewed health maintenance issues today and recommended the following in detail. Colorectal Cancer Screening due on 08/14/2025 LAB REVIEWED: Labs: - Cardiac enzymes: Elevated Imaging: - (January 2023) X-ray left femur: Evidence of delayed union or nonunion. Tests: - (2019) Colonoscopy: Polyp found VITALS: BP 132/86 Pulse 82 SpO2 95% Last 4 Encounter Wt Readings: Date: Wt: 06/03/2025 0 kg () 10/29/2023 163.3 kg (360 lb) 03/12/2023 166.9 kg (368 lb) 11/24/2022 179.4 kg (395 lb 8.1 oz) PHYSICAL EXAMINATION: GENERAL: NAD, alert and oriented. in wheelchair SKIN: Unremarkable, no rash or skin lesions. NECK: Supple, no lymphadenopathy, normal thyroid, no carotid bruits. LUNGS: Clear to auscultation bilaterally, no wheezes/rhonchi/rales. HEART: Regular rate and rhythm, no murmurs. No ectopy. EXTREMITIES: Chronic 1+ edema, chronic venostasis changes. no redness or warmth NEURO: Awake, alert and oriented x3, cranial nerves II-XII grossly intact, normal gait, no involuntary motions. ASSESSMENT AND PLAN 1. Primary hypertension (I10) - Blood pressure currently well-controlled without medication; last reading 132/86 mmHg. - Advised monitoring blood pressure regularly. 2. 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 - Follow-up appointment scheduled for the of this month; re-imaging planned to assess healing progress. - Patient is weight-bearing as advised to promote bone healing. 3. Anxiety (F41.9) - Patient denies feeling nervous, anxious, or on edge in the past two weeks. 4. Renal cell cancer, right (HCC) (C64.1) - Patient under the care of Dr. Peguero, urologist. - MRI of the kidney and CT of the chest previously ordered; will coordinate with urology to reschedule these imaging studies. - Follow-up with urology to be scheduled. 5. Chronic prescription opiate use (Z79.891) - Managed by Roxana Horowitz, painting machine operator at the local hospital. - Currently on [place]. 6. Obesity, Class III, BMI 40-49.9 (morbid obesity) ([facility]) (E66.813) - Discussed potential weight loss options; insurance coverage for weight loss medications is limited. - Ordered A1c to assess for diabetes mellitus, which may influence treatment options. - Consideration for bariatric surgery deferred until other medical issues are addressed. - Could consider glp-1-get a1c first. 7. Chronic diarrhea (K52.9) - Diarrhea has worsened over time; previously triggered by certain foods, now occurring without dietary triggers. - Discussed the need for follow-up colonoscopy due to history of colonic polyps and worsening diarrhea. 8. History of colonic polyps (Z86.0100) - Previous colonoscopy in 2019 revealed polyps; patient due for repeat colonoscopy. - Will coordinate with gastroenterology for scheduling. 9. SOB (shortness of breath) (R06.02) - Shortness of breath noted since resuming ambulation; no associated chest pain, cough, or wheezing. - Chronic issue dating back at least three years; previous workup included cardiac monitoring and evaluation for pulmonary embolism. - Referred to cardiology for further evaluation; will coordinate with [place] [facility]ology for timely appointment. 10. Encounter for screening examination for other mental health and behavioral disorders (Z13.39) - stable. 11. Screening for depression (Z13.31) - Patient denies feeling down, depressed, or hopeless in the past two weeks. 12. Screening for prostate cancer (Z12.5) - Ordered PSA test. 13. Screening for diabetes mellitus (DM) (Z13.1) - Ordered A1c to assess average blood glucose levels. (See patient after visit summary for additional instructions to patient) Jameson Sood MD Recording using [employer] software for draft documentation of the visit was discussed with the patient/authorized bilingual inside sales representative; all questions welcomed and answered. Patient/authorized bilingual inside sales representative agreed to proceed PSA/PROSTATE SPECIFIC ANTIGEN SCREENING Collected: 06/03/2025 4:38 PM Status: F Source: [facility] Comment: Specimen Type : BLOOD SPECIMEN Ordering Facility: [facility] Address: [address] [place] [address] TYPE CODE TESTS RESULT OUT OF RANGE REFERENCE UNITS LAB 2857-1(LOINC) PSA SerPl-mCnc 0.83 <2.60 ng/mL Result Comment: Total PSA te st methodology used is the Electrochemiluminescence Immunoassay by [employer]. Total PSA values by differing methodologies cannot be interchanged. Performed By: #### PSAS1 ### # [facility] CLIA [id number] [address] [place] [address] [place] COMP METAB 2000 PNL SERPL Collected: 4:38 PM Status: F Source: [facility] Order Comment: Specimen Type : BLOOD SPECIMEN Ordering Facility: [facility] Address: [address] [place] [address] TYPE CODE TESTS RESULT OUT OF RANGE REFERENCE UNITS LAB 2885-2(LOINC) Prot SerPl-mCnc 7.3 6.3-8.0 g/dL LAB 1751-7(LOINC) Albumin SerPl-mCnc 4.0 3.9-4.9 g/dL LAB 96069-1(LOINC) Calcium SerPl-mCnc 8.8 8.5-10.2 mg/dL LAB 1975-2(LOINC) Bilirub SerPl-mCnc 0.3 0.2-1.3 mg/dL LAB 6768-6(INC) ALP SerPl-cCnc 106 38-113 U/L LAB 1920-8(LOINC) AST SerPl-cCnc 15 14-40 U/L LAB 1742-6(INC) ALT SerPl-cCnc 23 10-54 U/L LAB 2345-7([facility]) Glucose SerPl-mCnc 77 74-99 mg/dL Result Comment: The [place] Diabetes Association (ADA) provides guidance for cutoff values for fasting glucose and random glucose. The ADA defines fasting as no caloric intake for at least 8 hours. Fasting plasma glucose results between 100 to 125 [...] Standards of Medical Care in Diabetes 2016, [place] Diabetes Association. Diabetes Care. 2016.39(Suppl 1). LAB 3094-0(INC) BUN SerPl-mCnc 22 9-24 mg/dL LAB 2160-0([facility]) Creat SerPl-mCnc 1.14 0.73-1.22 mg/dL LAB 2951-2(INC) Sodium SerPl-sCnc 137 136-144 mmol/L LAB 2823-3(INC) Potassium SerPl-sCnc 4.6 3.7-5.1 mmol/L LAB 2075-0(INC) Chloride SerPl-sCnc 100 98-107 mmol/L LAB 202-9(LOINC) CO2 SerPl-sCnc 25 22-30 mmol/L LAB 24152-0([facility]) Anion Gap SerPl-sCnc 12 8-15 mmol/L LAB 45145-7([facility]) eGFRcr SerPlBld CKD-EPI 2020 78 >=60 mL/min/1. 73m??? Result Comment: Estimated Gl omerular Filtration Rate (eGFR) is calculated using the 2020 CKD-EPI creatinine equation. This equation utilizes serum creatinine, sex, and age as parameters. The creatinine assay has traceable calibration to isotope dilution-mass spectrometry. Refer to KDIGO guidelines for clinical interpretation. In patients with unstable renal function, e.g. those with acute kidney injury, the eGFR may not accurately reflect actual GFR. Performed By: #### 19978-5, 12286-1, LIPNF #### [facility] CLIA [id number] [address] [place] [address] [place] [address] [place] LIPID PANEL, NONFASTING Collected: 06/03/2025 4:38 PM Status: F Source: [facility] Order Comment: Specimen Type : BLOOD SPECIMEN Ordering Facility: [facility] Address: [address] [place] [address] TYPE CODE TESTS RESULT OUT OF RANGE REFERENCE UNITS LAB CHOLNF TOTAL CHOLESTEROL NF 136 <200 mg/dL Result Comment: <200 mg/dL, Desirable 200-239 mg/dL, Borderline high >239 mg/dL, High LAB TRIGNF TRIGLYCERIDES, NF 64 <150 mg/dL Result Comment: <150 mg/dL, Normal 150-199 mg/dL, Borderline high 200-499 mg/dL, High >499 mg/dL, Very high LAB HDLNF HDL CHOLESTEROL, NF 53 >39 mg/dL Result Comment: 40-59 mg/dL, Acceptable >59 mg/dL, High: Negative risk factor for coronary heart disease <40 mg/dL, Low: Positive risk factor for coronary heart disease LAB LDLNF LDL CHOLESTEROL CALCULATED, NF 70 <100 mg/dL Result Comment: <100 mg/dL, Optimal 100-129 mg/dL, Near optimal/above optimal 130-159 mg/dL, Borderline high 160-189 mg/dL, High >189 mg/dL, Very high Secondary prevention optimal LDL Cholesterol levels are recommended to be <70 mg/dL LDL cholesterol is calculated using the Jacques-NIH equation. LAB NOHDLN NON HDL CHOL, NF 83 <130 mg/dL Result Comment: <130 mg/dL, Optimal 130-159 mg/dL, Near optimal/above optimal 160-189 mg/dL, Borderline high 190-219 mg/dL, High >219 mg/dL, Very high Secondary prevention optimal non HDL Cholesterol levels are recommended to be <100 mg/dL LAB VLDLNF VLDL CHOLESTEROL, NF 10 <30 mg/dL LAB TCHDLN T CHOL/HDL RATIO NF 2.57 <5.10 mg/dL LAB LDLHDN LDL/HDL RATIO, NF 1.32 <2.54 mg/dL Result Comment: Reference: 1. National Cholesterol Education Program ATP III Guideline At-A-Glance Quick Desk Reference: National Heart, Lung, and Blood [place]. National Institutes of Health. 2001: NIH Publication No. 01-3305. 2. An International Atherosclerosis Society position paper: global recommendations for the management of dyslipidemia: executive summary, Atherosclerosis. 2014: 232(2):410-413. Performed By: #### 02034-3, 03565-8, LIPNF #### [facility] CLIA [id number] [address] [place] [address] [place] NT-PROBNP SERPL-MCNC Collected: 06/03/2025 4:38 PM S tatus: F Source: [facility] Order Comment: Specimen Type : BLOOD SPECIMEN Ordering Facility: [facility] Address: [address] [place] [address] TYPE CODE TESTS RESULT OUT OF RANGE REFERENCE UNITS LAB 79545-2(LOINC) NT-proBNP SerPl-mCnc 94 <125 pg/mL Performed By: #### 26147-8, 23833-4, LIPNF #### [facility] CLIA [id number] [address] [place] [address] [place] CBC W AUTO DIFF BLD Collected: 06/03/2025 4:[address] atus: F Source: [facility] Order Comment: Specimen Type : BLOOD SPECIMEN Ordering Facility: [facility] Address: [address] [place] [address] TYPE CODE TESTS RESULT OUT OF RANGE REFERENCE UNITS LAB 6690-2(LOINC) WBC # Bld Auto 8.71 3.70-11.00 k/uL LAB 789-8(LOINC) RBC # Bld Auto 4.78 4.20-6.00 m/ uL LAB 718-7(LOINC) Hgb Bld-mCnc 12.6 Low 13.0-17.0 g/dL LAB 4544-3([facility]) Hct VFr Bld Auto 42.1 39.0-51.0 % LAB 787-2([facility]) MCV RBC Auto 88.1 80.0-100.0 fL LAB 785-6([facility]) MCH RBC Qn Auto 26.4 26.0-34.0 p g LAB 786-4([facility]) MCHC RBC Auto-mCnc 29.9 Low 30.5-36.0 g/dL LAB 07712-3([facility]) RDW RBC-Rto 16.0 High 11.5-15.0 % LAB 777-3([facility]) Platelet # Bld Auto 229 150-400 k/uL LAB 31133-1([facility]) PMV Bld Auto 10.9 9.0-12.7 fL LAB 770-8([facility]) Neutrophils/leuk NFr Bld Auto 76.4 % LAB 751-8([facility]) Neutrophils # Bld Auto 6.65 1.45-7.50 k/uL LAB 736-9([facility]) Lymphocytes/leuk NFr Bld Auto 13.5 % LAB 731-0([facility]) Lymphocytes # Bld Auto 1.18 1.00-4.00 k/uL LAB 5905-5([facility]) Monocytes/leuk NFr Bld Auto 8.0 % LAB 742-7([facility]) Monocytes # Bld Auto 0.70 <0.87 k/uL LAB 713-8([facility]) Eosinophil/leuk NFr Bld Auto 1.5 % LAB 711-2([facility]) Eosinophil # Bld Auto 0.13 <0.46 k/uL LAB 706-2([facility]) Basophils/leuk NFr Bld Auto 0.1 % LAB 704-7([facility]) Basophils # Bld Auto <0.03 <0.11 k/uL LAB 44729-6([facility]) Imm Granulocytes/chrissy k NFr Bld Auto 0.5 % LAB 28082-0([facility]) Imm Granulocytes # Bld Auto 0.04 <0.10 k/uL LAB 01606-7([facility]) nRBC/100 WBC Bld-Rto 0.0 /100 WBC LAB 771-6([facility]) nRBC # Bld Auto <0.01 <0.01 k/u L LAB 85271-0([facility]) Differential method Bld Auto Performed By: #### 22670-3 # ### [facility] CLIA [id number] [address] [place] [address] DEPRECATED HGB A1C BLD Collected: 06/03 4:38 PM Status: F Source: [facility] Order Comment: Specimen Type : BLOOD SPECIMEN Ordering Facility: [facility] Address: [address] [place] [address] TYPE CODE TESTS RESULT OUT OF RANGE REFERENCE UNITS LAB 4548-4([facility]) HbA1c MFr Bld 5.7 High 4.3-5.6 % Result Comment: [employer] guidelines indicate that patients with HgbA1c in the range 5.7-6.4% are at increased risk for development of diabetes, and intervention by lifestyle modification may be beneficial. HgbA1c greater or equal to 6.5% is considered diagnostic of diabetes. LAB 35333-3([facility]) Est. average glucose Bld gHb Est-mCnc 117 mg/dL Result Comment: eAG: (Estima toni average glucose) is a calculated value from HgbA1c and is bilingual inside sales representative of the average blood glucose level in the last 2-3 month period. Performed By: #### 64000-0 # ### [facility] CLIA [id number] [address] [place] [address] OF ELIU CNOV Observed: 06/03/2025 3:20 PM Status: COMPLETED Source: [facility] Office Visit (FAMPWS) JORGE MOJICA ([id number]) 1975 M Date Time Provider Department 06/03/25 3:20 PM JAVIER, JAMESON J FAMPWS During your visit today, we recorded the following information about you: Pulse Blood pressure 82/minute 132/86 Jameson Sood MD 06/03/2025 3:46 PM Signed - Continue [place] for pain management as prescribed. - Continue your bupropion (Wellbutrin) as you have been taking it. - Get blood work today (non-fasting): A1c (average blood sugar) CBC (complete blood count) CMP (kidney and liver function) Non-fasting lipid panel BNP (heart function marker) PSA (prostate screen) - Attend your left femur imaging appointment with Dr. Moon Oreilly at on the for evaluation of bone healing (possible bone graft). - Schedule an MRI of your kidney and a CT scan of your chest for renal cell cancer follow-up with Dr. Peguero in urology, then follow up in that clinic as instructed. - Arrange a cardiology consultation (preferably at [facility]) before any further surgeries. - Arrange a general surgery consultation as discussed. - Schedule a colonoscopy to evaluate your chronic diarrhea and follow up on the 2020 colon polyp. - Continue bearing weight on your left leg as tolerated per your orthopedic instructions. - Elevate your legs regularly at home to help reduce chronic swelling. - Consider discussing vaccinations for shingles, pneumonia, tetanus, COVID-19, and hepatitis B with your provider. Jameson Sood MD 06/03/2025 5:13 PM Signed Jorge Whittaker Mya is a 50-year-old male with a history of renal cell carcinoma, depression, and chronic diarrhea, presenting for follow-up of left femur fracture, dyspnea, and weight management. HPI Left Femur Fracture: - Sustained a left femur fracture in 2022, requiring two surgeries; currently under the care of ortho at . - Delayed healing; potential need for a third surgery involving a bone graft. - Bearing weight on the left leg as advised by the orthopedic team to promote healing. - Chronic edema in the right leg, more pronounced than in the left, attributed to water retention post-surgery. - Using a cane for ambulation around the house. - I have not seen hiim in some time. Dyspnea: - Onset of dyspnea coincided with resumption of ambulation. - Review of notes show he was seeing cardiology and did not keep cardiology follow ups or do an ordered stress test for the same issues three years ago. - Denies chest pain, cough, or wheezing or cough or edema. - No significant change in dyspnea since starting to walk again. - History of dyspnea dating back three years, with previous evaluation by cardiology. Chronic Diarrhea: - Chronic diarrhea since 2012, worsening recently. - Initially triggered by certain foods (ice cream, pizza, chicken kasandra); now occurs without dietary triggers. - History of intestinal hernia repair in 2012. - Polyp found during colonoscopy in 2019, with follow-up by [facility]. He is going to be due for repeat colonoscopy. Renal Cell Carcinoma: - Under the care of Dr. Peguero, urologist. - Scheduled for MRI of the kidney and CT of the chest for follow-up but never kept the follow up or got his scans. Depression: - Managed with Wellbutrin (bupropion). - Denies recent anxiety, loss of interest, or hopelessness. Weight Management: - Jorge expresses concern about weight gain due to limited mobility. - Interested in weight loss options, including medication and bariatric surgery. - Discussed glp-1s and poor insurance coverage. MEDICATIONS: Current Outpatient Medications Medication Sig cholecalciferol, vitamin D3, (VITAMIN D3 PO) Take by mouth. HYDROcodone-acetaminophen (NORCO) 5-325 mg per tablet iv contrast (will be provided with radiology test) MRI Kidney Inject, intravenously, once for 1 dose. No IV access, insert saline lock prior to the beginning of sedation, infusion, injection of imaging exam. Discontinue saline lock post exam. If Pt. has a central line or IVAD, may access for administration according to line specific nursing protocol. Once exam is complete flush line and de-access according to line specific nursing protocol in the MR contrast administration guidelines link. iv contrast (will be provided with radiology test) MRI Kidney Inject, intravenously, once for 1 dose. No IV access, insert saline lock prior to the beginning of sedation, infusion, injection of imaging exam. Discontinue saline lock post exam. If Pt. has a central line or IVAD, may access for administration according to line specific nursing protocol. Once exam is complete flush line and de-access according to line specific nursing protocol in the MR contrast administration guidelines link. ebmaqdu-sqftdxaun-iagvjpj D3 500 mg-5 mcg (200 unit) per tablet Take 1 tablet by mouth two times a day with meals. aspirin, enteric coated (ASPIRIN, ENTERIC COATED) 81 mg EC tablet Take 1 tablet by mouth once daily. buPROPion XL (WELLBUTRIN XL) 300 mg 24 hr tablet Take 1 tablet by mouth once daily. Along with 150 mg tablet buPROPion XL (WELLBUTRIN XL) 150 mg 24 hr tablet Take 1 tablet by mouth once daily. Along with 300 mg tablet No current facility-administered medications for this visit. ALLERGIES: ALLERGIES Allergen Reactions Hydrocortisone Rash topical Can take prednisone Milk GI Upset Tramadol GI Upset PAST MEDICAL HISTORY Diagnosis Date Arthritis Cancer (HCC) part of rightkidney removed 2018 Hernia, abdominal Hypertension Morbid obesity (HCC) Opioid use disorder, mild, abuse (HCC) see below Right renal mass Sleep apnea Substance abuse (HCC) cocaine and cannabis per counseling center notes, seeing counseling center PAST SURGICAL HISTORY Procedure Laterality Date COLONOSCOPY FLX DX W/COLLJ SPEC WHEN PFRMD 08/14/2020 Colonoscopy ESOPHAGOGASTRODUODENOSCOPY TRANSORAL DIAGNOSTIC 08/14/2020 EGD HERNIA REPAIR HX 11/2018 KIDNEY SURGERY HX 2018 partial kidney removal right kidney KIDNEY SURGERY HX Right removal RPR UMBILICAL HRNA 5 YRS/> REDUCIBLE 01/21/2013 FAMILY HISTORY Problem Relation Age of Onset Hypertension Father Arthritis Father Diabetes Father other (obesity) Father Hypertension Paternal Grandmother Heart Paternal Grandmother Diabetes Paternal Grandmother other (renal failure) Paternal Grandmother Hypertension Paternal Grandfather Heart Paternal Grandfather Diabetes Paternal Grandfather Social History Tobacco Use Smoking status: Never Smokeless tobacco: Never Vaping Use Vaping status: Never Used Substance Use Topics Alcohol use: No Drug use: Not Currently Comment: 03/12/23 recovered from substance use over ten years ago. Reviewed current medications, allergies, past medical history, surgical history, family history and social history today. REVIEW OF SYSTEMS Constitutional: (+) weight gain Cardiovascular: (+) leg swelling, (-) chest pain Respiratory: (+) exertional dyspnea, (-) cough, (-) wheezing Gastrointestinal: (+) diarrhea Musculoskeletal: (+) left leg pain Neurological: (-) syncope Psychiatric: (-) anxiety, (-) depressed mood, (-) anhedonia HEALTH MAINTENANCE: Reviewed health maintenance issues today and recommended the following in detail. Colorectal Cancer Screening due on 08/14/2025 LAB REVIEWED: Labs: - Cardiac enzymes: Elevated Imaging: - (January 2023) X-ray left femur: Evidence of delayed union or nonunion. Tests: - (2019) Colonoscopy: Polyp found VITALS: BP 132/86 Pulse 82 SpO2 95% Last 4 Encounter Wt Readings: Date: Wt: 06/03/2025 0 kg () 10/29/2023 163.3 kg (360 lb) 03/12/2023 166.9 kg (368 lb) 11/24/2022 179.4 kg (395 lb 8.1 oz) PHYSICAL EXAMINATION: GENERAL: NAD, alert and oriented. in wheelchair SKIN: Unremarkable, no rash or skin lesions. NECK: Supple, no lymphadenopathy, normal thyroid, no carotid bruits. LUNGS: Clear to auscultation bilaterally, no wheezes/rhonchi/rales. HEART: Regular rate and rhythm, no murmurs. No ectopy. EXTREMITIES: Chronic 1+ edema, chronic venostasis changes. no redness or warmth NEURO: Awake, alert and oriented x3, cranial nerves II-XII grossly intact, normal gait, no involuntary motions. ASSESSMENT AND PLAN 1. Primary hypertension (I10) - Blood pressure currently well-controlled without medication; last reading 132/86 mmHg. - Advised monitoring blood pressure regularly. 2. 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 - Follow-up appointment scheduled for the of this month; re-imaging planned to assess healing progress. - Patient is weight-bearing as advised to promote bone healing. 3. Anxiety (F41.9) - Patient denies feeling nervous, anxious, or on edge in the past two weeks. 4. Renal cell cancer, right (HCC) (C64.1) - Patient under the care of Dr. Peguero, urologist. - MRI of the kidney and CT of the chest previously ordered; will coordinate with urology to reschedule these imaging studies. - Follow-up with urology to be scheduled. 5. Chronic prescription opiate use (Z79.891) - Managed by Roxana Horowitz, painting machine operator at the local hospital. - Currently on [place]. 6. Obesity, Class III, BMI 40-49.9 (morbid obesity) ([facility]) (E66.763) - Discussed potential weight loss options; insurance coverage for weight loss medications is limited. - Ordered A1c to assess for diabetes mellitus, which may influence treatment options. - Consideration for bariatric surgery deferred until other medical issues are addressed. - Could consider glp-1-get a1c first. 7. Chronic diarrhea (K52.9) - Diarrhea has worsened over time; previously triggered by certain foods, now occurring without dietary triggers. - Discussed the need for follow-up colonoscopy due to history of colonic polyps and worsening diarrhea. 8. History of colonic polyps (Z86.0100) - Previous colonoscopy in 2019 revealed polyps; patient due for repeat colonoscopy. - Will coordinate with gastroenterology for scheduling. 9. SOB (shortness of breath) (R06.02) - Shortness of breath noted since resuming ambulation; no associated chest pain, cough, or wheezing. - Chronic issue dating back at least three years; previous workup included cardiac monitoring and evaluation for pulmonary embolism. - Referred to cardiology for further evaluation; will coordinate with [facility] cardiology for timely appointment. 10. Encounter for screening examination for other mental health and behavioral disorders (Z13.39) - stable. 11. Screening for depression (Z13.31) - Patient denies feeling down, depressed, or hopeless in the past two weeks. 12. Screening for prostate cancer (Z12.5) - Ordered PSA test. 13. Screening for diabetes mellitus (DM) (Z13.1) - Ordered A1c to assess average blood glucose levels. (See patient after visit summary for additional instructions to patient) Jameson Sood MD Recording using Color[employer] software for draft documentation of the visit was discussed with the patient/authorized bilingual inside sales representative; all questions welcomed and answered. Patient/authorized bilingual inside sales representative agreed to proceed Allergies As of Date: 06/03/2025 Noted Allergy Reaction HYDROCORTISONE 04/22/2018 2 - Rash Comments: topical Can take prednisone MILK 10/16/2022 8 - GI Upset TRAMADOL 04/22/2018 8 - GI Upset Date Reviewed: 01/17/2025 Reviewed by: Phani Staton MA - Fully Assessed Reason for Visit: Diarrhea [35] Cmt: 6 months everything he eats goes thru him. Using pepto and immodium daily. Refill Request [94] Cmt: Would like to refill wellbutrin 450 mg today. 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, unspecified fracture morphology, unspecified portion of femur, subsequent encounter [S72.92XK] Anxiety [F41.9] Renal cell cancer, right (HCC) [C64.1] Chronic prescription opiate use [Z79.891] Obesity, Class III, BMI >= 40 E66.01 [E66.813] Chronic diarrhea [K52.9] History of colonic polyps [Z86.0100] SOB (shortness of breath) [R06.02] Encounter for screening examination for other mental health and behavioral disorders [Z13.39] Screening for depression [Z13.31] Screening for prostate cancer [Z12.5] Screening for diabetes mellitus (DM) [Z13.1] Order(s):CONSULT TO UROLOGY [9041] Order #: [id number]: 1 FUTURE CONSULT TO GENERAL SURGERY [11] Order #: [id number]: 1 FUTURE CONSULT TO CARDIOLOGY [9003] Order #: [id number]: 1 FUTURE COMPLETE BLOOD COUNT AND DIFFERENTIAL [SQCBCDIF] Order #: [id number] FUTURE NT PRO BNP [SQNTBNP] Order #: [id number] FUTURE ANXIETY SCREENING [] Order #: [id number]: 1 DEPRESSION SCREENING [] Order #: [id number]: 1 PSA/PROSTATE SPECIFIC ANTIGEN SCREENING [SQPSAS1] Order #: [id number] FUTURE COMPREHENSIVE METABOLIC PANEL [SQCMP] Order #: [id number] FUTURE LIPID PANEL, NONFASTING [SQLIPNF] Order #: [id number] FUTURE HEMOGLOBIN A1C [ZLIZP1F] Order #: [id number] FUTURE Prescriptions as of 06/03/2025 - cholecalciferol, vitamin D3, (VITAMIN D3 PO) Take by mouth. - iv contrast (will be provided with radiology test) MRI Kidney Inject, intravenously, once for 1 dose. No IV access, insert saline lock prior to the beginning of sedation, infusion, injection of imaging exam. Discontinue saline lock post exam. If Pt. has a central line or IVAD, may access for administration according to line specific nursing protocol. Once exam is complete flush line and de-access according to line specific nursing protocol in the MR contrast administration guidelines link. - iv contrast (will be provided with radiology test) MRI Kidney Inject, intravenously, once for 1 dose. No IV access, insert saline lock prior to the beginning of sedation, infusion, injection of imaging exam. Discontinue saline lock post exam. If Pt. has a central line or IVAD, may access for administration according to line specific nursing protocol. Once exam is complete flush line and de-access according to line specific nursing protocol in the MR contrast administration guidelines link. - lcubrqt-xaanpfdse-frfrzsp D3 500 mg-5 mcg (200 unit) per tablet Take 1 tablet by mouth two times a day with meals. - aspirin, enteric coated (ASPIRIN, ENTERIC COATED) 81 mg EC tablet Take 1 tablet by mouth once daily. - buPROPion XL (WELLBUTRIN XL) 300 mg 24 hr tablet Take 1 tablet by mouth once daily. Along with 150 mg tablet - buPROPion XL (WELLBUTRIN XL) 150 mg 24 hr tablet Take 1 tablet by mouth once daily. Along with 300 mg tablet - HYDROcodone-acetaminophen (NORCO) 5-325 mg per tablet Problem List As Of Date 06/03/2025 Noted Resolved Hypertension [I10] 11/05/2011 Left knee pain [M25.562] 11/05/2011 Patellar tendinitis [M76.50] 12/22/2011 Morbid obesity (HCC) [E66.01] 05/07/2013 Right renal mass [N28.89] 01/20/2018 07/06/2018 Obesity, Class III, BMI >= 40 E66.01 [E66.813] 03/09/2018 Renal mass, right [N28.89] 03/09/2018 07/06/2018 Renal cell cancer, right (HCC) [C64.1] 03/19/2018 Ventral hernia without obstruction or gangrene *06/29/2020 Chronic diarrhea [K52.9] 07/03/2020 Change in bowel function [R19.8] 07/03/2020 11/21/2022 Lumbar pain [M54.50] 08/25/2020 Right upper quadrant pain [R10.11] 08/31/2020 11/21/2022 Osteoarthritis of left knee [M17.12] 07/22/2022 Right renal mass [N28.89] 08/01/2022 10/21/2022 Syncope and collapse [R55] 10/15/2022 10/17/2022 Opiate overdose (HCC) [T40.601A] 10/21/2022 Thyroid nodule [E04.1] 11/21/2022 Chronic prescription opiate use [Z79.891] 06/03/2025 Other instructions from your clinician: - Continue [place] for pain management as prescribed. - Continue your bupropion (Wellbutrin) as you have been taking it. - Get blood work today (non-fasting): A1c (average blood sugar) CBC (complete blood count) CMP (kidney and liver function) Non-fasting lipid panel BNP (heart function marker) PSA (prostate screen) - Attend your left femur imaging appointment with Dr. Moon Oreilly at on the for evaluation of bone healing (possible bone graft). - Schedule an MRI of your kidney and a CT scan of your chest for renal cell cancer follow-up with Dr. Peguero in urology, then follow up in that clinic as instructed. - Arrange a cardiology consultation (preferably at [facility]) before any further surgeries. - Arrange a general surgery consultation as discussed. - Schedule a colonoscopy to evaluate your chronic diarrhea and follow up on the 2020 colon polyp. - Continue bearing weight on your left leg as tolerated per your orthopedic instructions. - Elevate your legs regularly at home to help reduce chronic swelling. - Consider discussing vaccinations for shingles, pneumonia, tetanus, COVID-19, and hepatitis B with your provider. Disposition: Return in about 6 months (around 12/04/2025). Follow-up and Disposition History for Encounter Date Provider Department Center 06/03/2025 [id number] SOODWS Jesus [facility] Encounter Status:Closed by JAMESON SOOD on 06/03/25 [place]ANK Observed: 06/03/2025 12:00 AM Status: COMPLETED Source: [facility] Telephone ([facility]) JORGE MOJICA ([id number]) 1975 M Date Time Provider Department 06/03/25 WEGRYN, CHARLES UROLAE During your visit today, we recorded the following information about you: Janet Andrea 06/03/2025 4:27 PM Signed Patient's PCP wanted MRI and CT ordered by Dr. Peguero scheduled but the referrals for both orders are and cannot be scheduled. Please file new orders for scheduling purposes. Allergies As of Date: 06/03/2025 Noted Allergy Reaction HYDROCORTISONE 04/22/2018 2 - Rash Comments: topical Can take prednisone MILK 10/16/2022 8 - GI Upset TRAMADOL 04/22/2018 8 - GI Upset Date Reviewed: 01/17/2025 Reviewed by: Phani Staton MA - Fully Assessed Reason for Visit: Orders [681] Prescriptions as of 06/06/2025 - cholecalciferol, vitamin D3, (VITAMIN D3 PO) Take by mouth. - iv contrast (will be provided with radiology test) MRI Kidney Inject, intravenously, once for 1 dose. No IV access, insert saline lock prior to the beginning of sedation, infusion, injection of imaging exam. Discontinue saline lock post exam. If Pt. has a central line or IVAD, may access for administration according to line specific nursing protocol. Once exam is complete flush line and de-access according to line specific nursing protocol in the MR contrast administration guidelines link. - iv contrast (will be provided with radiology test) MRI Kidney Inject, intravenously, once for 1 dose. No IV access, insert saline lock prior to the beginning of sedation, infusion, injection of imaging exam. Discontinue saline lock post exam. If Pt. has a central line or IVAD, may access for administration according to line specific nursing protocol. Once exam is complete flush line and de-access according to line specific nursing protocol in the MR contrast administration guidelines link. - sxnqajy-rpieeluyd-kivtzbf D3 500 mg-5 mcg (200 unit) per tablet Take 1 tablet by mouth two times a day with meals. - aspirin, enteric coated (ASPIRIN, ENTERIC COATED) 81 mg EC tablet Take 1 tablet by mouth once daily. - buPROPion XL (WELLBUTRIN XL) 300 mg 24 hr tablet Take 1 tablet by mouth once daily. Along with 150 mg tablet - buPROPion XL (WELLBUTRIN XL) 150 mg 24 hr tablet Take 1 tablet by mouth once daily. Along with 300 mg tablet - HYDROcodone-acetaminophen (NORCO) 5-325 mg per tablet Problem List As Of Date 06/03/2025 Noted Resolved Hypertension [I10] 11/05/2011 Left knee pain [M25.562] 11/05/2011 Patellar tendinitis [M76.50] 12/22/2011 Morbid obesity (HCC) [E66.01] 05/07/2013 Right renal mass [N28.89] 01/20/2018 07/06/2018 Obesity, Class III, BMI >= 40 E66.01 [E66.813] 03/09/2018 Renal mass, right [N28.89] 03/09/2018 07/06/2018 Renal cell cancer, right (HCC) [C64.1] 03/19/2018 Ventral hernia without obstruction or gangrene *06/29/2020 Chronic diarrhea [K52.9] 07/03/2020 Change in bowel function [R19.8] 07/03/2020 11/21/2022 Lumbar pain [M54.50] 08/25/2020 Right upper quadrant pain [R10.11] 08/31/2020 11/21/2022 Osteoarthritis of left knee [M17.12] 07/22/2022 Right renal mass [N28.89] 08/01/2022 10/21/2022 Syncope and collapse [R55] 10/15/2022 10/17/2022 Opiate overdose (HCC) [T40.601A] 10/21/2022 Thyroid nodule [E04.1] 11/21/2022 Chronic prescription opiate use [Z79.891] 06/03/2025 Encounter Status:Closed by MOON PEGUERO on 06/06/25 36 Observed: 05/10/2025 10:18 AM Status: COMPLETED Source: [facility] Attempted to call patient an d R/S for D/E no answer and mailbox full CNPN Observed: 04/29/2025 12:00 AM Status: COMPLETED Source: [facility] JORGE MOJICA ([id number]) 1975 M Date Time Provider Department 04/29/25 JAMESON SOOD During your visit today, we recorded the following information about you: Venkat Allen RN 04/29/2025 11:20 AM Signed Patient calls to schedule an appointment to discuss weight loss options and a possible referral to a lead esthetician. Patient missed follow up appointment in January. Attempted to schedule appt as soon as possible with HOSPITALITY AIDE. Patient declines. Will only see Dr. Sood. Scheduled next available. Patient aware that he could be seen sooner and aware that he can call back to schedule an earlier appointment. Venkat Allen RN Allergies As of Date: 04/29/2025 Noted Allergy Reaction HYDROCORTISONE 04/22/2018 2 - Rash Comments: topical Can take prednisone MILK 10/16/2022 8 - GI Upset TRAMADOL 04/22/2018 8 - GI Upset Date Reviewed: 01/17/2025 Reviewed by: Phani Staton MA - Fully Assessed Reason for Visit: Appointment [186] Prescriptions as of 04/29/2025 - iv contrast (will be provided with radiology test) MRI Kidney Inject, intravenously, once for 1 dose. No IV access, insert saline lock prior to the beginning of sedation, infusion, injection of imaging exam. Discontinue saline lock post exam. If Pt. has a central line or IVAD, may access for administration according to line specific nursing protocol. Once exam is complete flush line and de-access according to line specific nursing protocol in the MR contrast administration guidelines link. - iv contrast (will be provided with radiology test) MRI Kidney Inject, intravenously, once for 1 dose. No IV access, insert saline lock prior to the beginning of sedation, infusion, injection of imaging exam. Discontinue saline lock post exam. If Pt. has a central line or IVAD, may access for administration according to line specific nursing protocol. Once exam is complete flush line and de-access according to line specific nursing protocol in the MR contrast administration guidelines link. - cnfxilo-hdyukubnk-wpptvwg D3 500 mg-5 mcg (200 unit) per tablet Take 1 tablet by mouth two times a day with meals. - aspirin, enteric coated (ASPIRIN, ENTERIC COATED) 81 mg EC tablet Take 1 tablet by mouth once daily. - buPROPion XL (WELLBUTRIN XL) 300 mg 24 hr tablet Take 1 tablet by mouth once daily. Along with 150 mg tablet - buPROPion XL (WELLBUTRIN XL) 150 mg 24 hr tablet Take 1 tablet by mouth once daily. Along with 300 mg tablet - HYDROcodone-acetaminophen (NORCO) 5-325 mg per tablet Problem List As Of Date 04/29/2025 Noted Resolved Hypertension [I10] 11/05/2011 Left knee pain [M25.562] 11/05/2011 Patellar tendinitis [M76.50] 12/22/2011 Morbid obesity (HCC) [E66.01] 05/07/2013 Right renal mass [N28.89] 01/20/2018 07/06/2018 Obesity, Class III, BMI >= 40 E66.01 [E66.813] 03/09/2018 Renal mass, right [N28.89] 03/09/2018 07/06/2018 Renal cell cancer, right (HCC) [C64.1] 03/19/2018 Ventral hernia without obstruction or gangrene *06/29/2020 Chronic diarrhea [K52.9] 07/03/2020 Change in bowel function [R19.8] 07/03/2020 11/21/2022 Lumbar pain [M54.50] 08/25/2020 Right upper quadrant pain [R10.11] 08/31/2020 11/21/2022 Osteoarthritis of left knee [M17.12] 07/22/2022 Right renal mass [N28.89] 08/01/2022 10/21/2022 Syncope and collapse [R55] 10/15/2022 10/17/2022 Opiate overdose (HCC) [T40.601A] 10/21/2022 Thyroid nodule [E04.1] 11/21/2022 Encounter Status:Closed by VENKAT ALLEN on 04/29/25 36 Observed: 04/12/2025 9:23 AM Status: COMPLETED [facility]. Palmira Pisano LPN 36 Observed: 02/22/2025 12:39 PM Status: COMPLETED Source: [facility] thanks. Michelle 36 Observed: 02/22/2025 10:28 AM Status: COMPLETED Source: [facility] Spoke with patient about wil ointment on 02/24 and told him to have Cr drawn prior to the appointment and to parts picker contrast no later than 24 hours prior to the appt. He said he has appts that day and won't be able to parts picker the contrast. Pt said he will reschedule appt. Pt was given the number to CS. 36 Observed: 02/22/2025 8:29 AM Status: COMPLETED Source: [facility] Attempted to contact pt. Cou ld not leave message. Mailbox full. DANK Observed: 02/22/2025 12:00 AM Status: COMPLETED Source: [facility] Telephone ([facility]) JORGE MOJICA ([id number]) 1975 M Date Time Provider Department 02/22/25 MOON PEGUERO During your visit today, we recorded the following information about you: Darrin Pearson RN 02/22/2025 4:03 PM Signed Patient was scheduled for MRI and CT after visit with Dr. Peguero. Patient was unable to make the appointment. Patient is not able to rescheduled. He was advised that new orders need to be put in. From what I can see those orders are still active. Would you be able to get him scheduled for the CT and MRI? ANA LAURA Mcnamara Stephanie 02/23/2025 10:10 AM Signed Both appointments have been rescheduled to 03/09/25 10:40 AM (CT - no prep) AND 11:30 AM (MRI - NPO 6 hours prior). Labs still need completed which can be done same day as a walk in. I called patient to confirm, no answer AND mail box is full. I will try sending a Trippin In message as well. Janet Barrientos 02/24/2025 11:00 AM Signed I called and spoke with patient. He confirmed the new appointments for CT AND MRI. Allergies As of Date: 02/22/2025 Noted Allergy Reaction HYDROCORTISONE 04/22/2018 2 - Rash Comments: topical Can take prednisone MILK 10/16/2022 8 - GI Upset TRAMADOL 04/22/2018 8 - GI Upset Date Reviewed: 01/17/2025 Reviewed by: Phani Staton MA - Fully Assessed Prescriptions as of 02/24/2025 - iv contrast (will be provided with radiology test) MRI Kidney Inject, intravenously, once for 1 dose. No IV access, insert saline lock prior to the beginning of sedation, infusion, injection of imaging exam. Discontinue saline lock post exam. If Pt. has a central line or IVAD, may access for administration according to line specific nursing protocol. Once exam is complete flush line and de-access according to line specific nursing protocol in the MR contrast administration guidelines link. - iv contrast (will be provided with radiology test) MRI Kidney Inject, intravenously, once for 1 dose. No IV access, insert saline lock prior to the beginning of sedation, infusion, injection of imaging exam. Discontinue saline lock post exam. If Pt. has a central line or IVAD, may access for administration according to line specific nursing protocol. Once exam is complete flush line and de-access according to line specific nursing protocol in the MR contrast administration guidelines link. - amkwidl-avtclowhf-emxjizy D3 500 mg-5 mcg (200 unit) per tablet Take 1 tablet by mouth two times a day with meals. - aspirin, enteric coated (ASPIRIN, ENTERIC COATED) 81 mg EC tablet Take 1 tablet by mouth once daily. - buPROPion XL (WELLBUTRIN XL) 300 mg 24 hr tablet Take 1 tablet by mouth once daily. Along with 150 mg tablet - buPROPion XL (WELLBUTRIN XL) 150 mg 24 hr tablet Take 1 tablet by mouth once daily. Along with 300 mg tablet - HYDROcodone-acetaminophen (NORCO) 5-325 mg per tablet Problem List As Of Date 02/22/2025 Noted Resolved Hypertension [I10] 11/05/2011 Left knee pain [M25.562] 11/05/2011 Patellar tendinitis [M76.50] 12/22/2011 Morbid obesity (HCC) [E66.01] 05/07/2013 Right renal mass [N28.89] 01/20/2018 07/06/2018 Obesity, Class III, BMI >= 40 E66.01 [E66.01] 03/09/2018 Renal mass, right [N28.89] 03/09/2018 07/06/2018 Renal cell cancer, right (HCC) [C64.1] 03/19/2018 Ventral hernia without obstruction or gangrene *06/29/2020 Chronic diarrhea [K52.9] 07/03/2020 Change in bowel function [R19.8] 07/03/2020 11/21/2022 Lumbar pain [M54.50] 08/25/2020 Right upper quadrant pain [R10.11] 08/31/2020 11/21/2022 Osteoarthritis of left knee [M17.12] 07/22/2022 Right renal mass [N28.89] 08/01/2022 10/21/2022 Syncope and collapse [R55] 10/15/2022 10/17/2022 Opiate overdose (HCC) [T40.601A] 10/21/2022 Thyroid nodule [E04.1] 11/21/2022 Encounter Status:Closed by JANET BARRIENTOS on 02/23/25 36 Observed: 02/21/2025 8:48 AM Status: COMPLETED Source: [facility] Attempted to call mary hinojosa unable to leave a . 36 Observed: 02/18/2025 1:14 PM Status: COMPLETED Source: [facility] Ok. Let me know once you do reach him. UMMN Observed: 02/18/2025 12:00 AM Status: COMPLETED Source: [facility] JORGE MOJICA ([id number]) 1975 M Date Time Provider Department 02/18/25 [facility] During your visit today, we recorded the following information about you: Colette Leon LPN 02/18/2025 4:02 PM Signed Jorge called with concerns of pain medication. Dr. Horowitz has been weaning patient off [place] stating that he is no longer able to prescribed to patient. Dr. Horowitz suggested injections in place of pain medication but Jorge surgeon out of did not want him to proceed with the injection as he is concerned that patient will not feel the discomfort if he would happen to re injury the leg in anyway. Jorge states that the femur is not healing well and looking at possible another surgery. Patient is asking what he should do as he is up and moving more as requested and because of that pain has increased. Should he stop seeing Dr. Horowitz and see another pain management? Would you be willing to take over prescribing the medication? Please advise. Jameson Sood MD 02/18/2025 4:07 PM Signed I am unable to take over prescribing. Can either see another pain doc or see Dr Horowitz and follow his recommendations Princess Porter LPN 02/18/2025 4:28 PM Signed Patient notified. Allergies As of Date: 02/18/2025 Noted Allergy Reaction HYDROCORTISONE 04/22/2018 2 - Rash Comments: topical Can take prednisone MILK 10/16/2022 8 - GI Upset TRAMADOL 04/22/2018 8 - GI Upset Date Reviewed: 01/17/2025 Reviewed by: Phani Staton MA - Fully Assessed Reason for Visit: Question [1327] Prescriptions as of 02/18/2025 - iv contrast (will be provided with radiology test) MRI Kidney Inject, intravenously, once for 1 dose. No IV access, insert saline lock prior to the beginning of sedation, infusion, injection of imaging exam. Discontinue saline lock post exam. If Pt. has a central line or IVAD, may access for administration according to line specific nursing protocol. Once exam is complete flush line and de-access according to line specific nursing protocol in the MR contrast administration guidelines link. - iv contrast (will be provided with radiology test) MRI Kidney Inject, intravenously, once for 1 dose. No IV access, insert saline lock prior to the beginning of sedation, infusion, injection of imaging exam. Discontinue saline lock post exam. If Pt. has a central line or IVAD, may access for administration according to line specific nursing protocol. Once exam is complete flush line and de-access according to line specific nursing protocol in the MR contrast administration guidelines link. - xyyhipw-jrxvmrgbe-hkzmvlk D3 500 mg-5 mcg (200 unit) per tablet Take 1 tablet by mouth two times a day with meals. - aspirin, enteric coated (ASPIRIN, ENTERIC COATED) 81 mg EC tablet Take 1 tablet by mouth once daily. - buPROPion XL (WELLBUTRIN XL) 300 mg 24 hr tablet Take 1 tablet by mouth once daily. Along with 150 mg tablet - buPROPion XL (WELLBUTRIN XL) 150 mg 24 hr tablet Take 1 tablet by mouth once daily. Along with 300 mg tablet - HYDROcodone-acetaminophen (NORCO) 5-325 mg per tablet Problem List As Of Date 02/18/2025 Noted Resolved Hypertension [I10] 11/05/2011 Left knee pain [M25.562] 11/05/2011 Patellar tendinitis [M76.50] 12/22/2011 Morbid obesity (HCC) [E66.01] 05/07/2013 Right renal mass [N28.89] 01/20/2018 07/06/2018 Obesity, Class III, BMI >= 40 E66.01 [E66.01] 03/09/2018 Renal mass, right [N28.89] 03/09/2018 07/06/2018 Renal cell cancer, right (HCC) [C64.1] 03/19/2018 Ventral hernia without obstruction or gangrene *06/29/2020 Chronic diarrhea [K52.9] 07/03/2020 Change in bowel function [R19.8] 07/03/2020 11/21/2022 Lumbar pain [M54.50] 08/25/2020 Right upper quadrant pain [R10.11] 08/31/2020 11/21/2022 Osteoarthritis of left knee [M17.12] 07/22/2022 Right renal mass [N28.89] 08/01/2022 10/21/2022 Syncope and collapse [R55] 10/15/2022 10/17/2022 Opiate overdose (HCC) [T40.601A] 10/21/2022 Thyroid nodule [E04.1] 11/21/2022 Encounter Status:Closed by PRINCESS PORTER on 02/18/25 36 Observed: 02/17/2025 2:22 PM Status: COMPLETED Source: [facility] I CALLED PT TO RELAY APPT DE TAILS. MAILBOX FULL. I TRIED SENDING A [employer] MESSAGE. THE MESSAGE WENT THROUGH BUT THE STATUS FOR [employer] SAYS PENDING. WILL TRY TO CONTACT PATIENT VIA PHONE AGAIN. 36 Observed: 02/17/2025 2:10 PM Status: COMPLETED Source: [facility] Patient scheduled testing as follows: Name of Test: CT AB/PELVIS W CONTRAST Location of Test (full address): [address] [place] [address] [address] [place] [address] Date/Time of Test: 02/24/25 9AM [] CT - You are not permitted anything to eat 4 hours prior to the exam. 2 hours prior, drink 2-4 8 ounce glasses of water for hydration. If oral contrast is ordered, you must parts picker no later than 24 hours prior to exam from any [facility] Radiology Dept. You must arrive 15 minutes early to register. Please remember to bring your photo ID and insurance card. [] Patient made aware of the above testing information and prep. 36 Observed: 02/17/2025 2:10 PM Status: COMPLETED Source: [facility] Patient scheduled testing as follows: Name of Test: UGI W KUB Location of Test (full address): [address] [facility] [address] Date/Time of Test: 03/02/25 1PM [] UGI W KUB - You are not permitted anything to eat or drink, including oral medications, for 10 hours before your procedure. You must arrive 30-40 minutes early to register. Please remember to bring your photo ID and insurance card. IF YOU HAVE BEEN ORDERED AN UGI X-RAY, PLEASE BE ADVISED OF THE MEDICATIONS LISTED BELOW, WHICH MUST BE HELD PRIOR TO THE TEST If you are not taking any of those listed, this does not apply to you. GLP-1 agonists: Semaglutide o Brand names- Ozempic or Wegovy- needs held 1 week prior to procedure o Brand name- Rybelsus PO daily dosing and just needs held 1 day before procedure Tirzepatide o Brand names- Mounjaro or Zepbound- needs held 1 week prior to procedure Dulaglutide (Trulicity)- needs held 1 week prior to procedure Liraglutide (Victoza)- daily injectable that just needs held 1 day before procedure Exenatide o Brand name Bydureon- needs held 1 week prior to procedure o Brand name Byetta- daily injectable and just needs held 1 day before procedure [] Patient made aware of the above testing information and prep. 36 Observed: 02/17/2025 1:54 PM Status: COMPLETED Source: [facility] Authorization for Testing In itiated. Company Name & Number Contacted for Auth: [id number] Name of Offshore Wind Turbine Technician: GUILLE Tipton Name of Procedure: [facility] Cpt Code: 09299, 01235 Diagnosis Code: R10.83,Z98.890,Z87.19 Location of Procedure: [facility] Is Auth Required: YES Approved Case reference: [id number] Date Range for Approved Auth: 02/17/25-03/19/25 29 Observed: 02/15/2025 4:02 PM Status: COMPLETED Source: [facility] Addended by: ARAMIS SHARMA on: 02/15/2025 04:02 PM Modules accepted: Orders 36 Observed: 02/15/2025 4:00 PM Status: COMPLETED Source: [facility] Reviewed w DR Camacho, op no te of [facility], date 12/21/2018. Unable to find any op note from [facility]. Will proceed w CT abd and pelvis for pre op assessment, given abd hernia history. Thanks. 36 Observed: 02/14/2025 2:45 PM Status: COMPLETED Source: [facility] Per [facility] medical records reve aled no documents / records found. Document from [facility] scanned to media and attached to this TE. 36 Observed: 02/14/2025 10:05 AM Status: COMPLETED Source: [facility] [place] [facility] [place] records for the abdomen for the patient. She said the request usually take about 7 days. If we don't have them by Thur/Fri this week, call them back [phone] 36 Observed: 02/14/2025 9:10 AM Status: COMPLETED Source: [facility] Orders / pre op check list p laced in folder for D/E 02/17/2025 W/ LB 29 Observed: 02/14/2025 8:39 AM Status: COMPLETED Source: [facility] Addended by: ARAMIS SHARMA on: 02/14/2025 08:39 AM Modules accepted: Orders 36 Observed: 02/14/2025 8:38 AM Status: COMPLETED Source: [facility] Orders signed. Lab printed. Pati- what is status on request for F op note. Thanks! 36 Observed: 02/10/2025 10:19 AM Status: COMPLETED Source: [facility] OP note from [facility] received Incarcerated incision ventral hernia repair with mesh 12/21/2018. Surgical HX updated and scanned to media attached to this TE. Placed in physician folder for review 36 Observed: 02/09/2025 10:56 AM Status: COMPLETED Source: [facility] See TE financial file for fu rther documentation 36 Observed: 02/09/2025 10:55 AM Status: COMPLETED Source: [facility] w All Conversations on this Encounter Stacy Selby RN routed conversation to You30 minutes ago (10:23 AM) MAXX Kevin CNP [facility] 260 Clinical Support Staff32 minutes ago (10:21 AM) LB Thanks! MAXX Kevin CNP32 minutes ago (10:21 AM) LB ----- Message from Aby Camacho DO sent at 02/08/2025 2:32 PM EDT ----- Can we get a copy of all his operative reports from [facility] to review? We may need a CT of the abdomen/pelvis to assess. He may have had a hiatal hernia repair. Faxed request to [facility] medical records @ [phone], confirmation received. Will await response. No records per [facility] 02/14/2025 Faxed request to medical records [place] @ [phone], confirmation received. Will await response. Received 02/10/2025 36 Observed: 02/09/2025 10:21 AM Status: COMPLETED Source: [facility] ----- Message from Aby evans DO sent at 02/08/2025 2:32 PM EDT ----- Can we get a copy of all his operative reports from [facility] to review? We may need a CT of the abdomen/pelvis to assess. He may have had a hiatal hernia repair. 29 Observed: 02/09/2025 7:36 AM Status: COMPLETED Source: [facility] Addended by: PATI VIZCARRA n: 02/09/2025 07:36 AM Modules accepted: Orders 36 Observed: 02/09/2025 7:32 AM Status: COMPLETED Source: [facility] EGD order sent to 260 allieu ler, Labs pended, Pre op check list scanned to media. PROGRESS NOTE Observed: 02/09/2025 7:31 AM Status: COMPLETED Source: [facility] 3rd attempt mailed letter to patient as VM is full and mychart have been sent RESS NOTE Observed: 02/09/2025 7:31 AM Status: COMPLETED Source: [facility] ENDOSCOPY ORDERS To be scheduled with: Dr. Camacho Patient is: Pre-op/Pre-Bariatric Surgery CPT code: EGD with biopsy- CPT 98333 Diagnosis: Dyspepsia- K30 If pre-op, Diet & Exercise Requirements are, and started/scheduled on 02/17/2025: 6 months Home O2: No Known Difficult Intubation: No The medication list needs reviewed at time of scheduling and again at time of reminder call. GLP-1 agonists: Semaglutide Brand names- Ozempic, Wegovy or Rybelsus needs held 1 week prior to procedure Tirzepatide Brand names- Mounjaro or Zepbound- needs held 1 week prior to procedure Dulaglutide (Trulicity)- needs held 1 week prior to procedure Liraglutide (Victoza)- daily injectable that just needs held 1 day before procedure) Exenatide Brand name Bydureon- needs held 1 week prior to procedure Brand name Byetta- daily injectable and just needs held 1 day before procedure Blood thinners: Aspirin Xarleto (rivaroxaban) Eliquis (apixaban) Plavix (clopidogrel) Warfarin/Jantoven (coumadin) Brillinta (ticagrelor) Pradaxa (dabigatran) SGLT2 inhibitors: Invokana (canagliflozin) Farxiga (dapaglifozin) Jardiance (empagliflozin) Steglatro (ertugliflozin) Brenzavvy (bexagliflozin) If endoscopy is scheduled within 17 days authorization will need to be obtained prior to scheduling PROGRESS NOTE Observed: 02/09/2025 7:31 AM Status: COMPLETED Source: [employer] [facility] Printed, given to undertaker assistant. PROGRESS NOTE Observed: 02/09/2025 7:31 AM Status: COMPLETED Source: [employer] 1st Attempt to contact nguyen fulton, no answer, not able to LVM, voice mailbox is full will send mValentt message. RESS NOTE Observed: 02/09/2025 7:31 AM Status: COMPLETED Source: [employer] [facility] 1ST ATTEMPT SENT [employer] BRIANNE SHAYLEE TO PT TO SCHEDULE EGD 36 Observed: 02/09/2025 7:29 AM Status: COMPLETED Source: [employer] [facility] PLAN I have recommended proceeding with the evaluation and work-up for the primary procedure as outlined below: PATIENT SUMMARY Jorge Camacho 49 y.o. male with Body mass index is 67.25 kg/m?. Sleeve Gastrectomy and Liver Wedge Biopsy Procedure DM[] HTN[] OFELIA[] GERD[] HL[] OA[] TOB[] Date of Surgery: TBD NOTES PCP: Jameson Sood MD INITIAL TESTING RESULTS Labwork [x] CMP, TSH, Fasting Lipid Profile, Mg, Zinc, Vit B1 (whole blood), Vit B12, 25-OH Vit D, Fe, Ferritin, Folate Tobacco [x] Serum Nicotine / Cotinine [] Negative [] Positive EGD [x] Dx: [] GERD [x] Dyspepsia [] Other Pathology [x] H. pylori [] Negative [] Positive UGI [x] [] not ordered US Abdomen [] [] not ordered OFELIA eval [x] [] On CPAP / Obtain settings Hematology [] [] Hypercoagulation panel Toxicology [] [] Urine drug screen [] EtOH screen Addtional [x] [x] Hgb A1c May need a CT AP depending on his operative notes, unclear surgical history INITIAL CONSULTATIONS CLEARANCE / MANAGEMENT Psychology [x] Dr. Byrd [x] Cardiology [x] [] not ordered Pulmonary [x] [] not ordered Others [] []Heme/Onc []Psychiatry []Pain mgmt PSD [] Physician supervised diet: []None []3 mos [x]6 mos Preop diet [x] Preop low calory diet: []None []1 wk [x]2 wks []Ext. FINAL PRE-OP TESTING RESULTS Labwork [x] [x]Pre-op CBC [x]BMP []Serum Nicotine / Cotinine EKG [x] CXR [x] POST-OP MEDICATIONS Ulcer Ppx [] Omeprazole 20 mg PO []QD []BID Gallstone Ppx [] Ursodiol 300 mg []BID DVT Ppx [] DVT prophylaxis per final preop visit estimated risk Estimated calculated risk: % Schedule final pre-operative office visit with surgeon, pre-operative education class, and pre-operative exercise class prior to date of surgery ATTESTATION I reviewed with the patient the details of the proposed operation. The risks benefits and options were discussed. Risks included but were not limited to bleeding, infection, damage to other surrounding organs, cardio-pulmonary complications related to anesthesia, conversion from laparoscopic to and open procedure, the need for reoperative or endoscopic therapy, the potential for prolonged mechanical ventilation, and . All questions were fully answered to the patient's satisfaction and they wish to proceed with surgical intervention. I personally performed the evaluation and management of Jorge Mojica in the development of a treatment plan for this patient. I personally interviewed the patient and performed an individual physical examination. In addition, I discussed the patient's condition and treatment options with them. I have also reviewed and agree with the past medical, family and social history unless otherwise noted. All of the patient's questions were answered. I personally performed the face to face encounter, physical exam, reviewing the medical history, coordinating the patient's care, counseling/educating the patient, ordering prescriptions/medications/tests/procedures, interpreting results and documenting clinical information in the patient's electronic health record on the day of the encounter. 36 Observed: 02/08/2025 4:05 PM Status: COMPLETED Source: [facility] Initial New [facility] surgical pat ient Navigation & Financial Counseling Discussion Patient Communication: In office SURGEON: [] MARIBEL [] XIOMARA [] MP [] TB [x] LM PROCEDURE: [] LRYGB [] LSG [] HOLA-S [] HOLA [] UNDECIDED [] REV: SPECIFY: Confirmed pt wants to continue with surgical program/plan [] YES [] NO (complete program withdrawal note/process) CO-MORBIDS: [] NONE [] DM []HTN [] OFELIA []GERD [] OTH: PRIVATE PAY: [] NO []YES DATE OF INITIAL BENEFITS VERIFICATION: TRANSFER FU: [] YES [] NO PRIMARY INSURANCE: Pay[place]: [place] [employer] / Plan: [place] [employer] ODM / Product Type: Medicaid HMO / BENEFIT ON PLAN: [] NO [] YES BENEFIT MAX: [] NO [] YES -- BENEFIT MAX: $ EMPLOYER: DIET AND EXERCISE (DE) REQUIREMENT PRIMARY [] NONE []3M [x] 6M []9M [] Medicare 4 Months [] SPR (3M) []OTHER: SECONDARY INSURANCE: BENEFIT ON PLAN: [] NO [] YES BENEFIT MAX: [] NO [] YES -- BENEFIT MAX: $ AUTH REQUIRED FROM SECONDARY [] NO [] YES DIET AND EXERCISE REQUIREMENT SECONDARY [] NONE []3M [] 6M [] Medicare 4 months [] SPR (3M) []OTHER: ___ [x] Discussed with patient: Financial cost overview (document signed and pt given copy at new pt consult visit with surgeon), Initial appointments: Bariatric Nutrition Assessment (BNA) & Diet and Exercise (DE) Patient to look for yellow envelope in mail. This yellow envelope will contain orders for labs, testing and required clearances. Pt encouraged to complete early in program to prevent delays. Encourage blood work to be draw by 1st DE appointment. [x] Reviewed OOP cost, including: [x] Overview of inpatient admission benefits - estimated inpatient co-pays, deductibles and/or co-insurance - Estimated OOP costs form reviewed with patient, and copy given to patient at new pt visit. [x] Reviewed next steps with patient: 1) Scheduled at new pt surgeon visit: Associate Juvenile Court Judge (RD) for a Nutrition Assessment (BNA) and Pre-operative Diet and Exercise (DE) appointment #1. [x] Patient reminded to arrive 15 minutes early for check in. Late arrivals may need to be rescheduled. 2) Schedule: Diet and Exercise Apt #2 only scheduled after initial BNA and DE completed, 3) Behavioral Health apt scheduled after DE started. Reviewed rational and goal of Behavioral Health appointments. 4) [x] Reinforced need to cancel any WMI appointments 48 hours in advance. Cautioned NS/Same day cancellations may result in delay in program or program completion hold. Noted: DE series needs to be a monthly series or insurance company may require repeat of the entire series. 5) [x] Smoker/tobacco products including vaping: reviewed need for cessation before surgery clearance and life long abstinence after surgery for best outcomes. Patient navigation to surgery: [x] Explained to patient that average time from initial consult to date of surgery can be 6-8 months. - Process can take longer if there are cancelled appointments, delays in testing and/or additional clearances that needs to be completed. - Reviewed importance of patient active engagement in making and keeping appointments to keep the process moving. - Reinforced need to cancel appointments at least 48 hours in advance. Reviewed that instances of No Shows and Same Day Appointment Cancellations may result in program/surgery delay or hold. [x] Patient advised of importance of having voicemail and MyChart for office communications and lab/testing results before and after surgery. PROGRESS NOTE Observed: 02/08/2025 1:30 PM Status: COMPLETED Source: [facility] SURGICAL WEIGHT LOSS MANAGEMENT PROGRAM Rooming Note - INITIAL CONSULTATION Patient: Jorge Mojica Date of : 1975 Service Date: 02/08/2025 Patient is here today to discuss the possibility of weight loss surgery. Physician Supervised D/E: 6 Weight Metrics: Vitals BP: (!) 170/78 Heart Rate: 74 Resp: 16 Temp: 36.8 ?C (98.3 ?F) Baseline Measures Initial Height: 5' 7 (170.2 cm) Initial Weight: 429 lb 6.4 oz (195 kg) Initial BMI: 67.4 Initial EBW: 148 lb (67.1 kg) Initial Waist Cricumference: 65 Initial Neck Circumference: 20.5 History of Difficult Intubation: no Patient is not on home O2 Completed by: Michelle Washington PROGRESS NOTE Observed: 02/08/2025 1:30 PM Status: COMPLETED Source: [facility] ABY CAMACHO DO, DUYEN, FACS ADVANCED LAPAROSCOPY, BARIATRIC AND ROBOTIC SURGERY [facility] BARIATRIC EVALUATION - HISTORY AND PHYSICAL 02/08/25 PATIENT: Jorge Mojica DATE OF : 1975 HISTORY OF PRESENT ILLNESS Chief Complaint: Obesity and associated conditions. Jorge Mojica is a 49 y.o. male with obesity and associated conditions who presents to the [facility] [place] for evaluation for metabolic/bariatric surgery. The patient stands Height: 5' 7 (170.2 cm) ([facility] ht check) tall with a weight of Weight: (!) 429 lb 6.4 oz (195 kg) , and has a BMI of Body mass index is 67.25 kg/m?.. The patient has failed multiple attempts at non-surgical weight loss, and is now seeking surgical intervention to promote permanent and consistent weight loss. The patient suffers from several co-morbidities as a result of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 guidelines link. iv contrast (will be provided with radiology test) MRI Kidney Inject, intravenously, once for 1 dose. No IV access, insert saline lock prior to the beginning of sedation, infusion, injection of imaging exam. Discontinue saline lock post exam. If Pt. has a central line or IVAD, may access for administration according to line specific nursing protocol. Once exam is complete flush line and de-access according to line specific nursing protocol in the MR contrast administration guidelines link. buPROPion XL (WELLBUTRIN XL) 300 mg 24 hr tablet Take 1 tablet by mouth once daily. Along with 150 mg tablet buPROPion XL (WELLBUTRIN XL) 150 mg 24 hr tablet Take 1 tablet by mouth once daily. Along with 300 mg tablet HISTORIES: PAST MEDICAL HISTORY Diagnosis Date Arthritis Cancer (HCC) part of rightkidney removed 2018 Hernia, abdominal Hypertension Morbid obesity (HCC) Opioid use disorder, mild, abuse (HCC) see below Right renal mass Sleep apnea Substance abuse (HCC) cocaine and cannabis per counseling center notes, seeing counseling center has a past surgical history that includes rpr umbilical hrna 5 yrs/> reducible (01/21/2013); kidney surgery hx (2018); hernia repair hx (11/2018); colonoscopy flx dx w/collj spec when pfrmd (08/14/2020); esophagogastroduodenoscopy transoral diagnostic (08/14/2020); and kidney surgery hx (Right). FAMILY HISTORY Problem Relation Age of Onset Hypertension Father Arthritis Father Diabetes Father other (obesity) Father Hypertension Paternal Grandmother Heart Paternal Grandmother Diabetes Paternal Grandmother other (renal failure) Paternal Grandmother Hypertension Paternal Grandfather Heart Paternal Grandfather Diabetes Paternal Grandfather Social History Tobacco Use Smoking status: Never Smokeless tobacco: Never Vaping Use Vaping status: Never Used Substance Use Topics Alcohol use: No Drug use: Not Currently Comment: 03/12/23 recovered from substance use over ten years ago. REVIEW OF SYSTEMS: Const: Well appearing, in no acute distress, well-hydrated, well-nourished, alert, awake, oriented to time, place and person. The remainder of the ROS was reviewed and is negative. Constitutional: (+) fatigue Musculoskeletal: (+) limited mobility of right lower extremity PHYSICAL EXAMINATION: General: Patient in wheelchair. BP 148/78 Pulse 71 SpO2 100% I personally reviewed the patient's radiology images and dictation and I agree with the radiologist's opinion. I personally reviewed the patient's laboratory studies. Assessment AND Plan: 1. Malignant neoplasm of right kidney, except renal pelvis (HCC) (C64.1) - Patient had a robotic radical nephrectomy with two foci of clear cell carcinoma; all margins were negative. - Educated patient that he should be considered cured based on surgical margins. - Ordered annual blood work and imaging for surveillance until July 2027. - Patient agrees to follow-up next year unless abnormal results necessitate earlier evaluation. 2. Gross hematuria (R31.0) - Intermittent episodes of gross hematuria reported. - Ordered MRI to be performed at [facility] in [place]. - Results will be reviewed to determine if further intervention is necessary. Blood work and imaging now and in 1 year. Written and verbal health teaching given to patient, patient verbalizes understanding and agrees with treatment plan. Patient will call if worsening symptoms, no improvement, or any other concerns. Plan discussed. Moon Peguero MD Electronically Signed: Moon Peguero MD January 17, 2025 2:04 PM This note was partially created using voice recognition software and is inherently subject to errors including those of syntax and sound-alike substitutions which may escape proofreading. In such instances, original meaning may be extrapolated by contextual derivation. The patient consented to the use of ambient AI software for draft documentation of the visit consistent with [facility]?s Notice of Privacy Practices. Patient Instructions - Complete the ordered blood work and imaging at [facility] in [place] as soon as possible. - Next follow-up appointment is scheduled for next year. - If test results are abnormal, you will be contacted for an earlier appointment. Referring Provider: JAMESON SOOD [[id number]] Allergies As of Date: 01/17/2025 Noted Allergy Reaction HYDROCORTISONE 04/22/2018 2 - Rash Comments: topical Can take prednisone MILK 10/16/2022 8 - GI Upset TRAMADOL 04/22/2018 8 - GI Upset Date Reviewed: 01/17/2025 Reviewed by: Phani Staton MA - Fully Assessed Reason for Visit: Hematuria [335] Primary Visit Diagnosis:Malignant neoplasm of right kidney, except renal pelvis (HCC) [C64.1] Other Visit Diagnosis:Gross hematuria [R31.0] Order(s):UA DIP, URINE (POC) [3607684] Order #: [id number]. #:[id number] ALKALINE PHOSPHATASE [SQALKP] Order #: [id number] FUTURE BASIC METABOLIC PANEL [SQBMP] Order #: [id number] FUTURE CT CHEST WO IVCON [[id number]] Order #: [id number] FUTURE GGT [SQGGT] Order #: [id number] FUTURE MRI KIDNEY WO/W IVCON [[id number]] Order #: [id number] FUTURE iv contrast (will be provided with radiology test)MRI Kidney Inject, intravenously, once for 1 dose. No IV access, insert saline lock prior to the beginning of sedation, infusion, injection of imaging exam. Discontinue saline lock post exam. If Pt. has a central line or IVAD, may access for administration according to line specific nursing protocol. Once exam is complete flush line and de-access according to line specific nursing protocol in the MR contrast administration guidelines link.Disp: 1 EachRfl: 0 ALKALINE PHOSPHATASE [SQALKP] Order #: [id number] FUTURE BASIC METABOLIC PANEL [SQBMP] Order #: [id number] FUTURE GGT [SQGGT] Order #: [id number] FUTURE CT CHEST WO IVCON [[id number]] Order #: [id number] FUTURE MRI KIDNEY WO/W IVCON [[id number]] Order #: [id number] FUTURE iv contrast (will be provided with radiology test)MRI Kidney Inject, intravenously, once for 1 dose. No IV access, insert saline lock prior to the beginning of sedation, infusion, injection of imaging exam. Discontinue saline lock post exam. If Pt. has a central line or IVAD, may access for administration according to line specific nursing protocol. Once exam is complete flush line and de-access according to line specific nursing protocol in the MR contrast administration guidelines link.Disp: 1 EachRfl: 0 Prescriptions as of 01/17/2025 - iv contrast (will be provided with radiology test) MRI Kidney Inject, intravenously, once for 1 dose. No IV access, insert saline lock prior to the beginning of sedation, infusion, injection of imaging exam. Discontinue saline lock post exam. If Pt. has a central line or IVAD, may access for administration according to line specific nursing protocol. Once exam is complete flush line and de-access according to line specific nursing protocol in the MR contrast administration guidelines link. - iv contrast (will be provided with radiology test) MRI Kidney Inject, intravenously, once for 1 dose. No IV access, insert saline lock prior to the beginning of sedation, infusion, injection of imaging exam. Discontinue saline lock post exam. If Pt. has a central line or IVAD, may access for administration according to line specific nursing protocol. Once exam is complete flush line and de-access according to line specific nursing protocol in the MR contrast administration guidelines link. - zjpitdo-fqhuywhbg-tbbdasa D3 500 mg-5 mcg (200 unit) per tablet Take 1 tablet by mouth two times a day with meals. - aspirin, enteric coated (ASPIRIN, ENTERIC COATED) 81 mg EC tablet Take 1 tablet by mouth once daily. - buPROPion XL (WELLBUTRIN XL) 300 mg 24 hr tablet Take 1 tablet by mouth once daily. Along with 150 mg tablet - buPROPion XL (WELLBUTRIN XL) 150 mg 24 hr tablet Take 1 tablet by mouth once daily. Along with 300 mg tablet - HYDROcodone-acetaminophen (NORCO) 5-325 mg per tablet Problem List As Of Date 01/17/2025 Noted Resolved Hypertension [I10] 11/05/2011 Left knee pain [M25.562] 11/05/2011 Patellar tendinitis [M76.50] 12/22/2011 Morbid obesity (HCC) [E66.01] 05/07/2013 Right renal mass [N28.89] 01/20/2018 07/06/2018 Obesity, Class III, BMI >= 40 E66.01 [E66.01] 03/09/2018 Renal mass, right [N28.89] 03/09/2018 07/06/2018 Renal cell cancer, right (HCC) [C64.1] 03/19/2018 Ventral hernia without obstruction or gangrene *06/29/2020 Chronic diarrhea [K52.9] 07/03/2020 Change in bowel function [R19.8] 07/03/2020 11/21/2022 Lumbar pain [M54.50] 08/25/2020 Right upper quadrant pain [R10.11] 08/31/2020 11/21/2022 Osteoarthritis of left knee [M17.12] 07/22/2022 Right renal mass [N28.89] 08/01/2022 10/21/2022 Syncope and collapse [R55] 10/15/2022 10/17/2022 Opiate overdose (HCC) [T40.601A] 10/21/2022 Thyroid nodule [E04.1] 11/21/2022 Prescriptions ordered this encounter Disp Refills Start End IV CONTRAST (RADIOLOGY PROCEDURE) - * 1 Ea* 0 01/17/2025 Class: In Office Sig: MRI Kidney Inject, intravenously, once for 1 dose. No IV access, insert saline lock prior to the beginning of sedation, infusion, injection of imaging exam. Discontinue saline lock post exam. If Pt. has a central line or IVAD, may access for administration according to line specific nursing protocol. Once exam is complete flush line and de-access according to line specific nursing protocol in the MR contrast administration guidelines link. IV CONTRAST (RADIOLOGY PROCEDURE) - * 1 Ea* 0 01/17/2025 Class: In Office Sig: MRI Kidney Inject, intravenously, once for 1 dose. No IV access, insert saline lock prior to the beginning of sedation, infusion, injection of imaging exam. Discontinue saline lock post exam. If Pt. has a central line or IVAD, may access for administration according to line specific nursing protocol. Once exam is complete flush line and de-access according to line specific nursing protocol in the MR contrast administration guidelines link. Encounter Status:Closed by MOON PEGUERO on 01/17/25 XR FEMUR RIGHT 2+ VIEWS Observed: 2023 11:17 AM Status: F Source: [facility] Interpreted By: Giles Polo, STUDY: XR FEMUR RIGHT 2+ VIEWS; XR KNEE RIGHT 1-2 VIEWS; XR KNEE LEFT 1-2 VIEWS; XR FEMUR LEFT 2+ VIEWS; ; 11/08/2024 11:35 am INDICATION: Signs/Symptoms:pov; Signs/Symptoms:fuv. ,S72.353A Displaced comminuted fracture of shaft of unspecified femur, initial encounter for closed fracture (Multi); ,S72.492K Other fracture of lower end of left femur, subsequent encounter for closed fracture with nonunion COMPARISON: None. ACCESSION NUMBER(S): [id number]; [id number]; [id number]; [id number] ORDERING CLINICIAN: MOON NG FINDINGS: Two views of the bilateral femurs. Two views of the bilateral knees. Left: Intramedullary nail and interlocking screw fixation across a markedly comminuted distal femoral diaphyseal fracture. No hardware complication. The fracture line remains conspicuous. Progressive callus is noted. A surgical suture projects over the lateral soft tissues of the thigh. Right: No acute fracture. No dislocation. Mild right hip arthrosis. Moderate right knee arthrosis. The soft tissues are unremarkable. IMPRESSION: Postsurgical changes status post left femoral fracture fixation. No evident hardware complication. The fracture line remains conspicuous. Retained surgical suture needle suspected. Moderate right knee and mild right hip arthrosis. MACRO: None Signed by: Luis Polo 11/15/2024 12:05 PM Dictation workstation: [id number] XR KNEE LEFT 1-2 VIEWS Observed: 11:17 AM Status: F Source: [facility] Interpreted By: Giles Polo, STUDY: XR FEMUR RIGHT 2+ VIEWS; XR KNEE RIGHT 1-2 VIEWS; XR KNEE LEFT 1-2 VIEWS; XR FEMUR LEFT 2+ VIEWS; ; 11/08/2024 11:35 am INDICATION: Signs/Symptoms:pov; Signs/Symptoms:fuv. ,S72.353A Displaced comminuted fracture of shaft of unspecified femur, initial encounter for closed fracture (Multi); ,S72.492K Other fracture of lower end of left femur, subsequent encounter for closed fracture with nonunion COMPARISON: None. ACCESSION NUMBER(S): [id number]; [id number]; [id number]; [id number] ORDERING CLINICIAN: MOON NG FINDINGS: Two views of the bilateral femurs. Two views of the bilateral knees. Left: Intramedullary nail and interlocking screw fixation across a markedly comminuted distal femoral diaphyseal fracture. No hardware complication. The fracture line remains conspicuous. Progressive callus is noted. A surgical suture projects over the lateral soft tissues of the thigh. Right: No acute fracture. No dislocation. Mild right hip arthrosis. Moderate right knee arthrosis. The soft tissues are unremarkable. IMPRESSION: Postsurgical changes status post left femoral fracture fixation. No evident hardware complication. The fracture line remains conspicuous. Retained surgical suture needle suspected. Moderate right knee and mild right hip arthrosis. MACRO: None Signed by: Luis Polo 11/15/2024 12:05 PM Dictation workstation: [id number] XR FEMUR LEFT 2+ VIEWS Observed: 11:17 AM Status: F Source: [facility] Interpreted By: Giles Polo, STUDY: XR FEMUR RIGHT 2+ VIEWS; XR KNEE RIGHT 1-2 VIEWS; XR KNEE LEFT 1-2 VIEWS; XR FEMUR LEFT 2+ VIEWS; ; 11/08/2024 11:35 am INDICATION: Signs/Symptoms:pov; Signs/Symptoms:fuv. ,S72.353A Displaced comminuted fracture of shaft of unspecified femur, initial encounter for closed fracture (Multi); ,S72.492K Other fracture of lower end of left femur, subsequent encounter for closed fracture with nonunion COMPARISON: None. ACCESSION NUMBER(S): [id number]; [id number]; [id number]; [id number] ORDERING CLINICIAN: MOON NG FINDINGS: Two views of the bilateral femurs. Two views of the bilateral knees. Left: Intramedullary nail and interlocking screw fixation across a markedly comminuted distal femoral diaphyseal fracture. No hardware complication. The fracture line remains conspicuous. Progressive callus is noted. A surgical suture projects over the lateral soft tissues of the thigh. Right: No acute fracture. No dislocation. Mild right hip arthrosis. Moderate right knee arthrosis. The soft tissues are unremarkable. IMPRESSION: Postsurgical changes status post left femoral fracture fixation. No evident hardware complication. The fracture line remains conspicuous. Retained surgical suture needle suspected. Moderate right knee and mild right hip arthrosis. MACRO: None Signed by: Luis Polo 11/15/2024 12:05 PM Dictation workstation: [id number] XR KNEE RIGHT 1-2 VIEWS Observed: 2023 11:15 AM Status: F Source: [facility] Interpreted By: Giles Polo, STUDY: XR FEMUR RIGHT 2+ VIEWS; XR KNEE RIGHT 1-2 VIEWS; XR KNEE LEFT 1-2 VIEWS; XR FEMUR LEFT 2+ VIEWS; ; 11/08/2024 11:35 am INDICATION: Signs/Symptoms:pov; Signs/Symptoms:fuv. ,S72.353A Displaced comminuted fracture of shaft of unspecified femur, initial encounter for closed fracture (Multi); ,S72.492K Other fracture of lower end of left femur, subsequent encounter for closed fracture with nonunion COMPARISON: None. ACCESSION NUMBER(S): [id number]; [id number]; [id number]; [id number] ORDERING CLINICIAN: MOON NG FINDINGS: Two views of the bilateral femurs. Two views of the bilateral knees. Left: Intramedullary nail and interlocking screw fixation across a markedly comminuted distal femoral diaphyseal fracture. No hardware complication. The fracture line remains conspicuous. Progressive callus is noted. A surgical suture projects over the lateral soft tissues of the thigh. Right: No acute fracture. No dislocation. Mild right hip arthrosis. Moderate right knee arthrosis. The soft tissues are unremarkable. IMPRESSION: Postsurgical changes status post left femoral fracture fixation. No evident hardware complication. The fracture line remains conspicuous. Retained surgical suture needle suspected. Moderate right knee and mild right hip arthrosis. MACRO: None Signed by: Luis Polo 11/15/2024 12:05 PM Dictation workstation: [id number] ALLERGIES DATE TYPE / CODE NAME / CODE REACTION SEVERITY SOURCE 10/16/2022 DRUG INGREDI/764429055( SNOMED CT) MILK GI UPSET [facility] 04/22/2018 DRUG INGREDI/744980130( SNOMED CT) HYDROCORTISONE RASH [facility] 04/22/2018 DRUG INGREDI/218890867( SNOMED CT) TRAMADOL GI UPSET [facility] 04/22/2018 DRUG INGREDI/653453383( SNOMED CT) TRAMADOL Diarrhea [facility] 04/22/2018 DRUG INGREDI/067140372( SNOMED CT) HYDROCORTISONE Rash [facility] ENCOUNTERS ADMIT/DISCHARGE ACCOUNT NUMBER ADMITTING ENCOUNTER CLASS LOCATION SOURCE 06/29/2025/ 5 [id number] Ambulatory [facility]Build ing:[facility] 06/13/2025/ 5 [id number] Ambulatory Building:[address] 06/13/2025/ 5 [id number] Ambulatory Building:[address] 06/03/2025/ 5 [id number] Ambulatory [facility]Build ing:W[facility] 06/03/2025 [id number] Ambulatory [facility] HospitalBuild ing:WOL2 [facility] 06/03/2025/ 5 [id number] Ambulatory [facility] HospitalBuild ing:WOFM [facility] 02/08/2025/ 5 [id number] [address] [place] [address] 02/07/2025/ 5 [id number] Ambulatory Building:[address] 02/07/2025/ 5 [id number] Ambulatory Building:[address] 01/17/2025/ 5 [id number] [facility] [id number] Ambulatory Building:[address] 11/08/2024/ 4 [id number] Ambulatory Building:[address] PAYERS ENCOUNTER GUARANTOR PAYER SUBSCRIBER SOURCE 06/29/2025 [facility] MEDICAIDPolicy Number: [id number] Date:0241-23-86Qeur Name:Ines BEAN: [id number] [place] [address] [facility] 06/13/2025 JORGE BEAN: [id number] [place], [place] [address]Rat: () Primary Insurance:[facility] PLANPolicy Number: [id number] Date:2023-03-17 JORGE CONAWAYDOB: [id number] [facility] [place], [place] [address]Yqx: (HP) [facility] 06/13/2025 JORGE CONAWAYDOB: [address] [place] [place] [address]Yfh: () Primary Insurance:[facility] PLANPolicy Number: [id number] Date:2023-03-17 JROGE CONAWAYDOB: [id number] [place] [place], [place] [address]Shy: () [facility] 06/03/2025 Primary Insurance:[facility] MEDICAIDPolicy Number: [id number] Date:2666-52-54Msur Name:X JORGE Whittaker MYADOB: [id number] [facility] [place] [address] [facility] 06/03/2025 Primary Insurance:[facility] MEDICAIDPolicy Number: [id number] Date:5482-84-30Tjjq Name:X JORGE Whittaker LUCÍAGUILLERMODOB: [id number] [place] [address] [facility] 06/03/2025 Primary Insurance:[facility] MEDICAIDPolicy Number: [id number] Date:9982-16-45Xnnh Name:Ines Whittaker LUCÍAGUILLERMODOB: [id number] [place] [address] [facility] 02/08/2025 Primary Insurance:[place] MEDICAIDPolicy Number: [id number] Date:8967-35-59Bytf Name:Medicaid HMO JORGE MOJICADOB: [id number] [place] [address] [facility] 02/07/2025 JORGE CASTREJONAWAYDOB: [address] [place], [place] [address]Gpv: (HP) Primary Insurance:[facility] PLANPolicy Number: [id number] Date:2023-03-17 JORGE CONAWAYDOB: [id number] [place], [place] [address]Ddf: (HP) [facility] 02/07/2025 JORGE CONAWAYDOB: [id number] [place], [place] [address]Vyy: (HP) Primary Insurance:[facility] PLANPolicy Number: [id number] Date:2023-03-17 JORGE CONAWAYDOB: [id number] [place], [place] [address]Sno: (HP) [facility] 01/17/2025 Primary Insurance:[facility] MEDICAIDPolicy Number: [id number] Date:9774-18-39Pbxt Name:Ines CASTREJONAWAYDOB: [id number] [address] [facility] 11/08/2024 JORGE CONAWAYDOB: [id number] [address] [place] [address]Oip: (HP) Primary Insurance:[facility] PLANPolicy Number: [id number] Date:2023-03-17 JORGE CASTREJONAWAYDOB: [id number], [place] [address]Sys: (HP) [facility] 11/08/2024 JORGE CONAWAYDOB: [id number] [address] [place], [place] [address]Evh: (HP) Primary Insurance:[facility] PLANPolicy Number: [id number] Date:2023-03-17 JORGE CASTREJONAWAYDOB: [id number], [place] [address]Ota: (HP) [facility]
[2025-08-16 14:39] LABS: Barbiturate Urine NEGATIVE (< 200 ng/mL); Benzodiazepine Urine NEGATIVE (< 200 ng/mL); PCP Urine NEGATIVE (< 25 ng/mL); THC Urine NEGATIVE (< 50 ng/mL)
== END | disposition home or self-care (01) ==
LOC: LAB 12:58
PROVIDERS: PCP Family Medicine; Referring Provider Anesthesiology Pain Medicine; Visit Provider Anesthesiology Pain Medicine
DX: F11.20 Opioid dependence, uncomplicated (principal)
CPT/HCPCS: 80307